=== PATIENT | female | born 1995 | race Caucasian/White ===

== ENCOUNTER 2018-07-26 10:51 | Emergency (ER) | payer BC ==
[2018-07-26 12:12] LABS: Absolute Monocytes 0.6 K/uL (0.1-1.3); Absolute Neutrophil 6.9 K/uL (1.8-8.0); Basophils % 0.3 % (0-1.3); Hematocrit 42.3 % (36.0-45.0); Lymphocytes % 20.3 % (15.3-44.8); MCH 31.3 pg (27.0-35.0); MCV 90.9 fL (80-100); MPV 8.9 fL (7.6-11.3); Monocytes % 5.7 % (3.3-12.3); RBC Red Blood Cell Count 4.66 M/uL (3.86-4.86)
[2018-07-26 12:17] LABS: Urine Blood 2+ (NEG); Urine Glucose NEGATIVE (NEG); Urine Protein NEGATIVE (NEG); Urine Specific Gravity 1.025 (1.005-1.030); Urine pH 5.5 (5.0-7.0)
--- NOTE | 2018-07-26 12:43 | RAD REPORT ---
EXAM DESCRIPTION: US - Transvaginal OB - 07/26/2018 12:21 pm CLINICAL HISTORY: Abd pain;Vaginal bleeding COMPARISON: No comparisons FINDINGS: A single gestational sac is seen within the uterus. The shape of the sac is within normal limits for gestational age. No yolk sac or embryo seen. The placenta is not yet developed due to early gestational age. The maternal adnexa and ovaries are within normal limits. Normal Doppler blood flow was demonstrated to both ovaries. IMPRESSION: Very small gestational sac measuring 4 mm is noted within the endometrium. No embryonic components seen. Based on mean sac diameter, the gestational age is 5 weeks 0 days. Recommend followup ultrasound in 10-12 days.
[2018-07-26 12:51] LABS: BUN Blood Urea Nitrogen 8 mg/dL (7-18); Bicarbonate 30 mmol/L (21-32); Glucose Level 101 mg/dL (74-106); HCG, Quantitative 951 mIU/mL (1-3); Sodium Level 141 mmol/L (136-145)
--- NOTE | 2018-07-26 13:14 | ER ---
Nurse's Notes [facility] Name: Cely Soto Age: 22 yrs Sex: Female : 1995 Arrival Date: 07/26/2018 Time: 10:54 Bed 14 Private MD: None, None Diagnosis: Threatened ; related conditions, unspecified Presentation: 07/26 11:35 Presenting complaint: Patient states: Right pelvic cramping with small amount of aj vaginal bleeding that started today. Transition of care: patient was not received from another setting of care. Onset of symptoms was July 26, 2018. Risk Assessment: Do you want to hurt yourself or someone else? Patient reports no desire to harm self or others. Initial Sepsis Screen: Does the patient meet any 2 criteria? No. Patient's initial sepsis screen is negative. Does the patient have a suspected source of infection? No. Patient's initial sepsis screen is negative. Care prior to arrival: None. 11:35 Method Of Arrival: Ambulatory aj 11:35 Acuity: TOMÁS 3 aj Triage Assessment: 11:36 General: Appears in no apparent distress. comfortable, Behavior is calm, cooperative, aj appropriate for age. Pain: Complains of pain in groin, suprapubic area and right inguinal area. Neuro: Level of Consciousness is awake, alert, obeys commands, Oriented to person, place, time, situation, Appropriate for age. Respiratory: Airway is patent Respiratory effort is even, unlabored, Respiratory pattern is regular, symmetrical. : Reports cramping, in right lower quadrant(s) vaginal bleeding that is. Derm: Skin is intact, is healthy with good turgor, Skin is pink, warm \T\ dry. normal. 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 - Social history:: Smoking status: Patient/guardian denies using tobacco. - Ebola Screening: : Patient negative for fever greater than or equal to 101.5 degrees Fahrenheit, and additional compatible Ebola Virus Disease symptoms Patient denies exposure to infectious person Patient denies travel to an Ebola-affected area in the 21 days before illness onset No symptoms or risks identified at this time. Screenin:50 Abuse screen: Denies threats or abuse. Denies injuries from another. Nutritional sg screening: No deficits noted. Tuberculosis screening: No symptoms or risk factors identified. Never had TB. Fall Risk None identified. Assessment: 11:50 Reassessment: Patient appears in no apparent distress at this time. Patient is alert, sg oriented x 3, equal unlabored respirations, skin warm/dry/pink. General: Behavior is calm, cooperative, appropriate for age. Pain: Complains of pain in suprapubic area Pain currently is 6 out of 10 on a pain scale. Quality of pain is described as crampy, sharp, tender. Neuro: No deficits noted. Cardiovascular: Heart tones S1 S2 present Capillary refill is brisk in bilateral fingers Patient's skin is warm and dry. Chest pain is denied. Respiratory: Airway is patent Respiratory effort is even, unlabored, Respiratory pattern is regular, symmetrical, Breath sounds are clear Denies cough, shortness of breath labored breathing. GI: No signs and/or symptoms were reported involving the gastrointestinal system. : Reports vaginal bleeding that is brown, with clots, light flow, spotty. EENT: No signs and/or symptoms were reported regarding the EENT system. Derm: Skin is pale, Skin temperature is warm. Musculoskeletal: Circulation, motion, and sensation intact. Range of motion: intact in all extremities, Swelling absent. Vital Signs: 11:36 BP 134 / 85; Pulse 75; Resp 17; Temp 98.1; Pulse Ox 100% on R/A; Weight 54.43 kg; aj Height 5 ft. 1 in. (154.94 cm); 12:32 BP 120 / 79; Pulse 68; Resp 17; Pulse Ox 100% on R/A; sg 11:36 Body Mass Index 22.67 (54.43 kg, 154.94 cm) aj ED Course: 10:54 Patient arrived in ED. mr 10:54 None, None is Private Physician. mr 11:33 Radiology exam delayed due to test not completed at this time. hr 11:36 Triage completed. aj 11:36 Arm band placed on left wrist. Patient placed in waiting room, Patient notified of wait aj time. ultrasound ordered. 11:49 Willard Cruz, RN is Primary Nurse. sg 11:50 Gail Guardado FNP-C [facility]. snw 11:50 Fahad Sethi MD is Attending Physician. snw 11:50 Initial lab(s) drawn, by me, sent to lab. Inserted saline lock: 22 gauge in right sg antecubital area, using aseptic technique. Blood collected. 12:00 Patient taken to ultrasound. via wheelchair. hr 12:21 Ultrasound completed. Patient moved back from ultrasound. hr 12:21 US Transvaginal Ob In Process Unspecified. EDMS Administered Medications: No medications were administered Outcome: 13:14 Discharge ordered by . snw 14:02 Patient left the ED. dm5 Signatures: Dispatcher [employer] EDMS Sharmila Brooke, RN RN dm5 Willard Cruz, RN Myrtle Katz RN RN aj Therrien, Shelly, FNP-C FNP-Pierce EduardoFouzia Jing Webster hr
--- NOTE | 2018-07-26 13:14 | EDPHYS ---
Physician Documentation [facility] Name: Cely Soto Age: 22 yrs Sex: Female : 1995 Arrival Date: 07/26/2018 Time: 10:54 Bed 14 Private MD: None, None ED Physician Fahad Sethi HPI: 07/26 14:06 This 22 yrs old Female presents to ER via Ambulatory with complaints of snw Vaginal Bleeding, + Preg <12wks, Abdominal Cramping. 14:06 The patient presents with vaginal bleeding that is spotting, with no clots. Onset: The snw symptoms/episode began/occurred suddenly, this morning. Modifying factors: The symptoms are alleviated by nothing. Associated signs and symptoms: The patient has no apparent associated signs or symptoms. Severity of symptoms: At their worst the symptoms were very mild, mild. The patient is sexually active, reportedly has a single partner. The patient has not experienced similar symptoms in the past. Has been seen recently per Dr. Roberts. . 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 - Social history:: Smoking status: Patient/guardian denies using tobacco. - Ebola Screening: : Patient negative for fever greater than or equal to 101.5 degrees Fahrenheit, and additional compatible Ebola Virus Disease symptoms Patient denies exposure to infectious person Patient denies travel to an Ebola-affected area in the 21 days before illness onset No symptoms or risks identified at this time. ROS: 14:05 Constitutional: Negative for fever, chills, and weight loss, Eyes: Negative for injury, snw pain, redness, and discharge, ENT: Negative for injury, pain, and discharge, Neck: Negative for injury, pain, and swelling, Cardiovascular: Negative for chest pain, palpitations, and edema, Respiratory: Negative for shortness of breath, cough, wheezing, and pleuritic chest pain, Abdomen/GI: Negative for abdominal pain, nausea, vomiting, diarrhea, and constipation, Back: Negative for injury and pain, MS/Extremity: Negative for injury and deformity, Skin: Negative for injury, rash, and discoloration, Neuro: Negative for headache, weakness, numbness, tingling, and seizure. 14:05 : Positive for vaginal bleeding, spotting - 7 weeks . Exam: 13:34 Constitutional: This is a well developed, well nourished patient who is awake, alert, snw and in no acute distress. Head/Face: Normocephalic, atraumatic. Eyes: Pupils equal round and reactive to light, extra-ocular motions intact. Lids and lashes normal. Conjunctiva and sclera are non-icteric and not injected. Cornea within normal limits. Periorbital areas with no swelling, redness, or edema. ENT: Nares patent. No nasal discharge, no septal abnormalities noted. Tympanic membranes are normal and external auditory canals are clear. Oropharynx with no redness, swelling, or masses, exudates, or evidence of obstruction, uvula midline. Mucous membranes moist. Neck: Trachea midline, no thyromegaly or masses palpated, and no cervical lymphadenopathy. Supple, full range of motion without nuchal rigidity, or vertebral point tenderness. No Meningismus. Chest/axilla: Normal chest wall appearance and motion. Nontender with no deformity. No lesions are appreciated. Cardiovascular: Regular rate and rhythm with a normal S1 and S2. No gallops, murmurs, or rubs. Normal PMI, no JVD. No pulse deficits. Respiratory: Lungs have equal breath sounds bilaterally, clear to auscultation and percussion. No rales, rhonchi or wheezes noted. No increased work of breathing, no retractions or nasal flaring. Abdomen/GI: Soft, non-tender, with normal bowel sounds. No distension or tympany. No guarding or rebound. No evidence of tenderness throughout. Back: No spinal tenderness. No costovertebral tenderness. Full range of motion. Skin: Warm, dry with normal turgor. Normal color with no rashes, no lesions, and no evidence of cellulitis. MS/ Extremity: Pulses equal, no cyanosis. Neurovascular intact. Full, normal range of motion. Neuro: Awake and alert, GCS 15, oriented to person, place, time, and situation. Cranial nerves II-XII grossly intact. Motor strength 5/5 in all extremities. Sensory grossly intact. Cerebellar exam normal. Normal gait. Psych: Awake, alert, with orientation to person, place and time. Behavior, mood, and affect are within normal limits. Vital Signs: 11:36 BP 134 / 85; Pulse 75; Resp 17; Temp 98.1; Pulse Ox 100% on R/A; Weight 54.43 kg; aj Height 5 ft. 1 in. (154.94 cm); 12:32 BP 120 / 79; Pulse 68; Resp 17; Pulse Ox 100% on R/A; sg 11:36 Body Mass Index 22.67 (54.43 kg, 154.94 cm) aj MDM: 11:50 Patient medically screened. snw 14:05 Data reviewed: vital signs, nurses notes. Data interpreted: Pulse oximetry: on room air snw is 100 %. Interpretation: normal. Counseling: I had a detailed discussion with the patient and/or guardian regarding: the historical points, exam findings, and any diagnostic results supporting the discharge/admit diagnosis, lab results, radiology results, the need for outpatient follow up, to return to the emergency department if symptoms worsen or persist or if there are any questions or concerns that arise at home. Special discussion: Based on the history and exam findings, there is no indication for further emergent testing or inpatient evaluation. I discussed with the patient/guardian the need to see the OB Gyne specialist for further evaluation of the symptoms. I discussed with the patient/guardian the need to see the primary care provider for further evaluation of the symptoms. 14:07 ED course: Pt states she is following up with Dr. Roberts upon dc from ED. snw 07/26 11:27 Order name: Quantitative Hcg; Complete Time: 12:52 snw 07/26 11:27 Order name: Abo/rh Typing; Complete Time: 12:30 snw 07/26 11:27 Order name: Basic Metabolic Panel; Complete Time: 12:52 snw 07/26 11:27 Order name: CBC with Diff; Complete Time: 12:28 snw 07/26 11:53 Order name: Urine Dipstick--Ancillary (enter results); Complete Time: 12:28 dm5 07/26 12:48 Order name: ABO/RH no charge; Complete Time: 12:48 EDMS 07/26 11:27 Order name: IV Saline Lock; Complete Time: 12:48 snw 07/26 11:27 Order name: Labs collected and sent; Complete Time: 12:48 snw 07/26 11:27 Order name: NPO; Complete Time: 12:48 snw 07/26 11:27 Order name: Urine Dipstick-Ancillary (obtain specimen); Complete Time: 11:51 snw 07/26 11:27 Order name: US Transvaginal Ob; Complete Time: 12:45 snw Administered Medications: No medications were administered Disposition: 14:13 Co-signature as Attending Physician, Fahad Sethi MD I agree with the assessment and kdr plan of care. Disposition: 07/26/18 13:14 Discharged to Home. Impression: Threatened , related conditions, unspecified. - Condition is Stable. - Discharge Instructions: Threatened Miscarriage, Vaginal Bleeding During , First Trimester, First Trimester of , Pelvic Rest. - Prescriptions for Vitamin 27- 0.8 mg Oral Tablet - take 1 tablet by ORAL route once daily; 60 tablet. - Medication Reconciliation Form, Thank You Letter, Antibiotic Education, Prescription Opioid Use form. - Follow up: Private Physician; When: 2 - 3 days; Reason: Recheck today's complaints, Continuance of care, Re-evaluation by your physician. Follow up: Emergency Department; When: As needed; Reason: Worsening of condition. Signatures: Dispatcher [employer] Sharmila Burnett RN RN dm5 Myers, Amanda RN Fahad Howe MD MD [facility] Gail Guardado, MACHINE HOOP MAKER HELPER-C MACHINE HOOP MAKER HELPER-Csnw Corrections: (The following items were deleted from the chart) 14:02 13:14 07/26/2018 13:14 Discharged to Home. Impression: Threatened ; dm5 related conditions, unspecified. Condition is Stable. Forms are Medication Reconciliation Form, Thank You Letter, Antibiotic Education, Prescription Opioid Use. Follow up: Private Physician; When: 2 - 3 days; Reason: Recheck today's complaints, Continuance of care, Re-evaluation by your physician. Follow up: Emergency Department; When: As needed; Reason: Worsening of condition. snw
== END 2018-07-26 14:02 | disposition home or self-care (01) ==
LOC: ER 10:51
DX: O20.0 Threatened abortion (principal); Z3A.01 Less than 8 weeks gestation of pregnancy
CPT/HCPCS: 36415; 76817; 80048; 81003; 84702; 85025; 86900; 86901; 99284

== ENCOUNTER 2018-12-06 11:30 | Emergency (ER) | payer BC ==
--- OUTSIDE RECORDS SUMMARY | 2018-12-06 11:34 | XMS REPORT ---
:1995 [facility] Address [address] [place] [address] Care Team Providers Name Role Phone Unavailable Unavailable Unavailable Payers Payer Name Policy Type Policy Number Effective Date Expiration Date Problems This patient has no known problems. Allergies, Adverse Reactions, Alerts This patient has no known allergies or adverse reactions. Medications This patient has no known medications.
[2018-12-06] MEDS ORDERED: NA CHLORIDE 0.9% 1,000 ML ONE ×2 (14:41→15:54)
[2018-12-06 15:34] LABS: BUN Blood Urea Nitrogen 13 mg/dL (7-18); Bicarbonate 23 mmol/L (21-32); Glucose Level 78 mg/dL (74-106); HCG, Quantitative 2428 mIU/mL (1-3); Potassium 3.5 mmol/L (3.5-5.1); Sodium Level 138 mmol/L (136-145)
[2018-12-06] MEDS ORDERED: PROMETHAZINE 25 MG/ML VIAL ONE (15:54)
--- NOTE | 2018-12-06 16:41 | RAD REPORT ---
EXAM DESCRIPTION: US - Transvaginal OB - 12/06/2018 4:23 pm CLINICAL HISTORY: with abdominal pain and vaginal bleeding FINDINGS: The uterus appears bicornuate. Within the left uterine horn is a 6 millimeter sac. A yolk sac is equivocally seen. A pole is not visualized. The ovaries are normal in size and echotexture. An adnexal mass is not noted. No significant free fluid is seen. 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 Within the left uterine horn is a 6 millimeter sac. pole not seen. This may represent a normal intrauterine . Incomplete has a similar appearance. This should be correlated clini joanna and with serial beta HCG levels. A followup endovaginal sonogram in 1 week is recommended
--- NOTE | 2018-12-06 16:52 | ER ---
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 Pt reports hb she is approx 6 weeks , , HERMINIA 07/29/19. Transition of care: patient was not received from another setting of care. Onset of symptoms was December 06, 2018. Risk Assessment: Do you want to hurt yourself or someone else? Patient reports no desire to harm self or others. Care prior to arrival: None. 11:42 Method Of Arrival: Ambulatory hb 11:42 Acuity: TOMÁS 3 hb 17:23 Initial Sepsis Screen: Does the patient meet any 2 criteria? No. Patient's initial ch sepsis screen is negative. Does the patient have a suspected source of infection? No. Patient's initial sepsis screen is negative. 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 - Social history:: Smoking status: Patient/guardian denies using tobacco. - Ebola Screening: : No symptoms or risks identified at this time. Screenin:24 Abuse screen: Denies threats or abuse. Denies injuries from another. Nutritional ch screening: No deficits noted. Tuberculosis screening: No symptoms or risk factors identified. Fall Risk None identified. Assessment: 13:24 Reassessment: Patient appears in no apparent distress at this time. Patient and/or ch family updated on plan of care and expected duration. Pain level reassessed. Patient is alert, oriented x 3, equal unlabored respirations, skin warm/dry/pink. General: Appears in no apparent distress. comfortable, Behavior is calm, cooperative, appropriate for age. Pain: Denies pain. Neuro: No deficits noted. Respiratory: No deficits noted. Airway is patent Respiratory effort is even, unlabored. GI: Abdomen is flat, non-distended, Bowel sounds present X 4 quads. Reports nausea. : Reports vaginal bleeding that is bright red, light flow, has been going on for 3 days, is getting worse today. Derm: Skin is pink, warm \T\ dry. 14:48 Reassessment: Patient appears in no apparent distress at this time. Patient and/or ch family updated on plan of care and expected duration. Pain level reassessed. Patient is alert, oriented x 3, equal unlabored respirations, skin warm/dry/pink. Patient denies pain at this time. GI: Reports nausea. 16:25 Reassessment: Patient appears in no apparent distress at this time. Patient and/or ch family updated on plan of care and expected duration. Pain level reassessed. Patient is alert, oriented x 3, equal unlabored respirations, skin warm/dry/pink. Patient denies pain at this time. Patient states feeling better. Patient states symptoms have improved. 17:15 Reassessment: Patient appears in no apparent distress at this time. Patient and/or ch family updated on plan of care and expected duration. Pain level reassessed. Patient is alert, oriented x 3, equal unlabored respirations, skin warm/dry/pink. Patient states feeling better. Patient states symptoms have improved. Vital Signs: 11:44 BP 117 / 82; Pulse 101; Resp 16; Temp 97.3; Pulse Ox 98% on R/A; Pain 4/10; hb 13:00 BP 123 / 75; Pulse 62; Resp 14; Temp 99.1; Pulse Ox 100% on R/A; Pain 0/10; ch 14:50 BP 110 / 62; Pulse 74; Resp 18; Pulse Ox 99% on R/A; Pain 0/10; ch 16:25 BP 117 / 80; Pulse 76; Resp 15; Temp 98.5; Pulse Ox 99% on R/A; Pain 0/10; ch 17:15 BP 110 / 68; Pulse 70; Resp 14; Temp 98.3; Pulse Ox 99% on R/A; Pain 0/10; ch ED Course: 11:32 Patient arrived in ED. as 11:32 out of town, doctor is Private Physician. as 11:44 Triage completed. hb 11:44 Arm band placed on. hb 12:58 Gail Guardado FNP-C [facility]. snw 12:58 Fahad Sethi MD is Attending Physician. snw 13:04 Cathy Zarco, JP is Primary Nurse. ch 13:24 Patient has correct armband on for positive identification. Placed in gown. Bed in low ch position. Call light in reach. Side rails up X 1. Pulse ox on. NIBP on. 14:27 Inserted saline lock: 18 gauge in left antecubital area, using aseptic technique. Blood ch collected. 14:42 Urine --Ancillary (enter results) Sent. ds4 14:42 Urine Dipstick--Ancillary (enter results) Sent. ds4 14:43 CBC with Diff Sent. ds4 14:43 Basic Metabolic Panel Sent. ds4 14:43 Abo/rh Typing Sent. ds4 14:43 Quantitative Hcg Sent. ds4 14:50 Warm blanket given. ch 16:23 US Transvaginal Ob In Process Unspecified. EDMS 16:32 Ultrasound completed. aa4 17:15 No apparent distress. Resting quietly. ch 17:15 No provider procedures requiring assistance completed. IV discontinued, intact, ch bleeding controlled, No redness/swelling at site. Pressure dressing applied. Administered Medications: 14:10 Drug: NS 0.9% 1000 ml Route: IV; Rate: 1 bolus; Site: left antecubital; ch 15:20 Follow up: IV Status: Completed infusion; IV Intake: 1000ml ch 15:35 Drug: NS 0.9% 1000 ml Route: IV; Rate: 1 bolus; Site: left antecubital; ch 16:26 Follow up: IV Status: Completed infusion; IV Intake: 1000ml ch 16:20 Drug: Phenergan 6.25 mg Route: IVP; Site: left antecubital; ch 16:40 Follow up: Response: No adverse reaction; Marked relief of symptoms ch Intake: 15:20 IV: 1000ml; Total: 1000ml. ch 16:26 IV: 1000ml; Total: 2000ml. ch Outcome: 16:52 Discharge ordered by . snw 17:17 Patient left the ED. ch 17:22 Discharged to home ambulatory. ch 17:22 Condition: stable 17:22 Discharge instructions given to patient, Instructed on discharge instructions, follow up and referral plans. Demonstrated understanding of instructions, follow-up care, medications, Prescriptions given X 3. Signatures: Dispatcher [employer] Cathy Kaur, RN RN Gail Cramer, FRESH WORK INSPECTOR-C FRESH WORK INSPECTOR-Piercew Tootie Sinha Amanda aa4 Venu Styles 4 Wen Ewing RN RN hb
--- NOTE | 2018-12-06 16:52 | EDPHYS ---
Physician Documentation [facility] Name: Cely Soto Age: 22 yrs Sex: Female : 1995 Arrival Date: 12/06/2018 Time: 11:32 Bed 25 Private MD: out of town, doctor ED Physician Fahad Sethi HPI: 12/06 20:27 This 22 yrs old Female presents to ER via Ambulatory with complaints of snw Vomiting, Vaginal Bleeding, + Preg <12wks. 20:27 The patient presents to the emergency department with nausea, vomiting. Onset: The snw symptoms/episode began/occurred suddenly, and became worse. Possible causes: . The symptoms are aggravated by nothing. Associated signs and symptoms: Pertinent positives: minimal vaginal spotting in ED. Severity of symptoms: At their worst the symptoms were moderate. The patient has not experienced similar symptoms in the past. 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 pt called her PCP and was directed to ED 2nd to concern for dehydration. Pt has hx of one miscarriage in the past. 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 - Social history:: Smoking status: Patient/guardian denies using tobacco. - Ebola Screening: : No symptoms or risks identified at this time. ROS: 20:25 Constitutional: Negative for fever, chills, and weight loss, Eyes: Negative for injury, snw pain, redness, and discharge, ENT: Negative for injury, pain, and discharge, Neck: Negative for injury, pain, and swelling, Cardiovascular: Negative for chest pain, palpitations, and edema, Respiratory: Negative for shortness of breath, cough, wheezing, and pleuritic chest pain, Abdomen/GI: Negative for abdominal pain, diarrhea, and constipation, + nausea, severe vomiting, Back: Negative for injury and pain, : Negative for injury, bleeding, discharge, and swelling, MS/Extremity: Negative for injury and deformity, Skin: Negative for injury, rash, and discoloration, Neuro: Negative for headache, weakness, numbness, tingling, and seizure. Exam: 20:25 Constitutional: This is a well developed, well nourished patient who is awake, alert, snw and in no acute distress. Head/Face: Normocephalic, atraumatic. Eyes: Pupils equal round and reactive to light, extra-ocular motions intact. Lids and lashes normal. Conjunctiva and sclera are non-icteric and not injected. Cornea within normal limits. Periorbital areas with no swelling, redness, or edema. ENT: Nares patent. No nasal discharge, no septal abnormalities noted. Tympanic membranes are normal and external auditory canals are clear. Oropharynx with no redness, swelling, or masses, exudates, or evidence of obstruction, uvula midline. Mucous membranes moist. Neck: Trachea midline, no thyromegaly or masses palpated, and no cervical lymphadenopathy. Supple, full range of motion without nuchal rigidity, or vertebral point tenderness. No Meningismus. Chest/axilla: Normal chest wall appearance and motion. Nontender with no deformity. No lesions are appreciated. Cardiovascular: Regular rate and rhythm with a normal S1 and S2. No gallops, murmurs, or rubs. Normal PMI, no JVD. No pulse deficits. Respiratory: Lungs have equal breath sounds bilaterally, clear to auscultation and percussion. No rales, rhonchi or wheezes noted. No increased work of breathing, no retractions or nasal flaring. Back: No spinal tenderness. No costovertebral tenderness. Full range of motion. Skin: Warm, dry with normal turgor. Normal color with no rashes, no lesions, and no evidence of cellulitis. MS/ Extremity: Pulses equal, no cyanosis. Neurovascular intact. Full, normal range of motion. Neuro: Awake and alert, GCS 15, oriented to person, place, time, and situation. Cranial nerves II-XII grossly intact. Motor strength 5/5 in all extremities. Sensory grossly intact. Cerebellar exam normal. Normal gait. Psych: Awake, alert, with orientation to person, place and time. Behavior, mood, and affect are within normal limits. 20:25 Skin: Warm, dry with normal turgor. Normal color with no rashes, no lesions, and no evidence of cellulitis. intermittently pale 20:25 Abdomen/GI: Inspection: abdomen appears normal, Bowel sounds: normal, Palpation: abdomen is soft and non-tender, in all quadrants. Vital Signs: 11:44 BP 117 / 82; Pulse 101; Resp 16; Temp 97.3; Pulse Ox 98% on R/A; Pain 4/10; hb 13:00 BP 123 / 75; Pulse 62; Resp 14; Temp 99.1; Pulse Ox 100% on R/A; Pain 0/10; ch 14:50 BP 110 / 62; Pulse 74; Resp 18; Pulse Ox 99% on R/A; Pain 0/10; ch 16:25 BP 117 / 80; Pulse 76; Resp 15; Temp 98.5; Pulse Ox 99% on R/A; Pain 0/10; ch 17:15 BP 110 / 68; Pulse 70; Resp 14; Temp 98.3; Pulse Ox 99% on R/A; Pain 0/10; ch MDM: 14:56 Patient medically screened. snw 16:57 Data reviewed: vital signs, nurses notes. Data interpreted: Pulse oximetry: on room air snw is 99 %. Interpretation: normal. Counseling: I had a detailed discussion with the patient and/or guardian regarding: the historical points, exam findings, and any diagnostic results supporting the discharge/admit diagnosis, the presence of at least one elevated blood pressure reading (>120/80) during this emergency department visit, lab results, radiology results, the need for outpatient follow up, to return to the emergency department if symptoms worsen or persist or if there are any questions or concerns that arise at home. Special discussion: Based on the patient's Hx, exam, and Dx evaluation, there is no indication for emergent surgery or inpatient Tx. It is understood by the patient/guardian that if the Sx's persist or worsen they need to return immediately for re-evaluation. I have referred the patient to see his PCP for further evaluation of high blood pressure. I discussed with the patient the need to follow-up with the PCP/specialist for the noted incidental finding on X-ray/CT scanning. Based on the history and exam findings, there is no indication for further emergent testing or inpatient evaluation. I discussed with the patient/guardian the need to see the OB Gyne specialist for further evaluation of the symptoms. bicornate uterus. 12/06 13:18 Order name: Urine Dipstick--Ancillary (enter results) ds4 12/06 13:18 Order name: Urine --Ancillary (enter results) ds4 12/06 13:53 Order name: Quantitative Hcg; Complete Time: 15:37 snw 12/06 13:53 Order name: Abo/rh Typing; Complete Time: 15:37 snw 12/06 13:53 Order name: Basic Metabolic Panel; Complete Time: 15:37 w 12/06 13:53 Order name: CBC with Diff w 12/06 13:53 Order name: IV Saline Lock; Complete Time: 14:43 w 12/06 13:53 Order name: Labs collected and sent; Complete Time: 14:43 snw 12/06 13:53 Order name: NPO; Complete Time: 14:42 snw 12/06 13:53 Order name: Urine Dipstick-Ancillary (obtain specimen); Complete Time: 14:42 snw 12/06 15:38 Order name: US Transvaginal Ob; Complete Time: 16:45 snw Administered Medications: 14:10 Drug: NS 0.9% 1000 ml Route: IV; Rate: 1 bolus; Site: left antecubital; ch 15:20 Follow up: IV Status: Completed infusion; IV Intake: 1000ml ch 15:35 Drug: NS 0.9% 1000 ml Route: IV; Rate: 1 bolus; Site: left antecubital; ch 16:26 Follow up: IV Status: Completed infusion; IV Intake: 1000ml ch 16:20 Drug: Phenergan 6.25 mg Route: IVP; Site: left antecubital; ch 16:40 Follow up: Response: No adverse reaction; Marked relief of symptoms ch Disposition: 12/06/18 16:52 Discharged to Home. Impression: Bicornate uterus, 1st trimester intrauterine . - Condition is Stable. - Discharge Instructions: Dehydration, Adult, Nausea and Vomiting, Adult, Threatened Miscarriage, Rehydration, Adult. - Prescriptions for Diclegis 10- 10 mg Oral tablet,delayed release (DR/EC) - take 1 tablet by ORAL route 1-2 times daily and 2 tablets at bedtime; 40 tablet. L- Methylfolate - take 7.5 milligram by ORAL route once daily; 60 tablet. Vitamin 27- 0.8 mg Oral Tablet - take 1 tablet by ORAL route once daily; 60 tablet. - Medication Reconciliation Form, Thank You Letter, Antibiotic Education, Prescription Opioid Use form. - Follow up: Private Physician; When: 1 week; Reason: Recheck today's complaints, Continuance of care, Re-evaluation by your physician. Follow up: Emergency Department; When: As needed; Reason: Worsening of condition. Addendum: 12/13/2018 09:27 Co-signature as Attending Physician, Fahad Sethi MD I agree with the assessment and k dr plan of care. Signatures: Dispatcher [employer] EDCathy Salgado, RN RN Fahad Sethi MD MD [facility] Gail Guardado, MACHINE PLATE STACKER-C MACHINE PLATE STACKER-Csnw Wen Ewing, RN RN Corrections: (The following items were deleted from the chart) 12/06 17:17 16:52 12/06/2018 16:52 Discharged to Home. Impression: Bicornate uterus; 1st trimester ch intrauterine . Condition is Stable. Forms are Medication Reconciliation Form, Thank You Letter, Antibiotic Education, Prescription Opioid Use. Follow up: Private Physician; When: 1 week; Reason: Recheck today's complaints, Continuance of care, Re-evaluation by your physician. Follow up: Emergency Department; When: As needed; Reason: Worsening of condition. snw
[2018-12-06 18:56] LABS: Urine Blood TRACE (NEG); Urine Glucose NEGATIVE (NEG); Urine Protein 1+ (NEG); Urine Specific Gravity >1.030 (1.005-1.030); Urine pH 5.5 (5.0-7.0)
== END 2018-12-06 17:17 | disposition home or self-care (01) ==
LOC: ER 11:30
DX: O34.01 Maternal care for unspecified congenital malformation of uterus, first trimester (principal); Z3A.00 Weeks of gestation of pregnancy not specified
CPT/HCPCS: 36415; 76817; 80048; 81003; 81025; 84702; 85025; 86900; 86901; J2550; J7030

== ENCOUNTER 2019-03-13 07:23 | Emergency (ER) | payer BC ==
--- OUTSIDE RECORDS SUMMARY | 2019-03-13 07:25 | XMS REPORT ---
:1995 Author Organization [facility] Address [address] [place] [address] Care Team Providers Name Role Phone Unavailable Unavailable Unavailable Payers Payer Name Policy Type Policy Number Effective Date Expiration Date Problems This patient has no known problems. Allergies, Adverse Reactions, Alerts This patient has no known allergies or adverse reactions. Medications This patient has no known medications.
[2019-03-13] MEDS ORDERED: ONDANSETRON 4 MG/2 ML VIAL ONE (08:01)
[2019-03-13] MEDS ORDERED: NA CHLORIDE 0.9% 1,000 ML ONE (08:02)
[2019-03-13 08:09] LABS: Absolute Lymphocytes (CBC) 2.6 K/uL (0.7-4.9); Absolute Monocytes 0.6 K/uL (0.1-1.3); Absolute Neutrophil 9.5 K/uL (1.8-8.0); Basophils % 0.4 % (0-1.3); Eosinophils % 3.8 % (0-4.4); Hematocrit 39.6 % (36.0-45.0); Lymphocytes % 19.6 % (15.3-44.8); MPV 8.5 fL (7.6-11.3); Monocytes % 4.8 % (3.3-12.3); RBC Red Blood Cell Count 4.47 M/uL (3.86-4.86)
[2019-03-13] MEDS ORDERED: PROMETHAZINE 25 MG/ML VIAL ONE (08:14)
[2019-03-13] MEDS ORDERED: KETOROLAC 30 MG/ML INJ ONE (08:14)
[2019-03-13 08:19] LABS: Albumin 4.3 g/dL (3.4-5.0); Bilirubin Direct 0.2 mg/dL (0-0.2); Bilirubin Total 0.5 mg/dL (0.2-1.0); Potassium 3.6 mmol/L (3.5-5.1); Protein, Total 7.5 g/dL (6.4-8.2)
[2019-03-13 08:22] LABS: Urine Blood TRACE (NEG); Urine Glucose NEGATIVE (NEG); Urine Protein 1+ (NEG); Urine Specific Gravity >1.030 (1.005-1.030)
[2019-03-13 08:40] LABS: Barbiturates POSITIVE (NEGATIVE); Benzodiazepines NEGATIVE (NEGATIVE); Cocaine NEGATIVE (NEGATIVE); METHAMPHETAM NEGATIVE (NEGATIVE); Methadone NEGATIVE (NEGATIVE); Opiates NEGATIVE (NEGATIVE); Phencyclidine NEGATIVE (NEGATIVE); THC Cannibis POSITIVE (NEGATIVE)
[2019-03-13] MEDS ORDERED: MAGNE/ALUM HYDROXD 30 ML UCUP ONE (09:00)
[2019-03-13] MEDS ORDERED: FAMOTIDINE 20 MG/2 ML VIAL IV ONE (09:00)
[2019-03-13] MEDS ORDERED: LIDOCAINE VISCOUS 2% SOLN 15 ML UDC ONE (09:00)
--- NOTE | 2019-03-13 09:03 | EDPHYS ---
Physician Documentation [facility] Name: Cely Soto Age: 23 yrs Sex: Female : 1995 Arrival Date: 03/13/2019 Time: 07:25 Bed 20 Private MD: None, None ED Physician Mejia Rios HPI: 03/13 08:18 This 23 yrs old Female presents to ER via Ambulatory with complaints of pm1 Abdominal Pain. 08:18 The patient presents with abdominal pain that is diffuse. Onset: The symptoms/episode pm1 began/occurred Ongoing for multiple months but worse for the past few days. The symptoms do not radiate. Associated signs and symptoms: Pertinent positives: nausea and vomiting, Pertinent negatives: chest pain, constipation, diarrhea, dysuria, fever, shortness of breath. The symptoms are described as achy. Modifying factors: The symptoms are alleviated by nothing, the symptoms are aggravated by nothing. Severity of pain: in the emergency department the pain is actually worse. The patient has been recently seen by a physician: with similar presenting complaints, lab tests were done, CT scan was done, and was referred to a specialist, Seen at [place] [facility] and discharged home to follow up with GI. Patient with long standing history of cannabis abuse. Smokes cannabis daily. Patient with abdominal pain for the past several months. Abdominal pain is usually worse in the morning and eases throughout the day. For the past few days the pain has been worse and lasting longer. 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 - Social history:: Patient uses street drugs, marijuana, "daily to help with the pain, like 2 or 3 times a day", Smoking status: Patient/guardian denies using tobacco. - Ebola Screening: : Patient denies travel to an Ebola-affected area in the 21 days before illness onset. ROS: 08:18 Constitutional: Negative for fever, chills, and weight loss, Eyes: Negative for injury, pm1 pain, redness, and discharge, ENT: Negative for injury, pain, and discharge, Neck: Negative for injury, pain, and swelling, Cardiovascular: Negative for chest pain, palpitations, and edema, Respiratory: Negative for shortness of breath, cough, wheezing, and pleuritic chest pain. 08:18 Back: Negative for injury and pain, : Negative for injury, bleeding, discharge, and swelling, MS/Extremity: Negative for injury and deformity, Skin: Negative for injury, rash, and discoloration, Neuro: Negative for headache, weakness, numbness, tingling, and seizure. 08:18 Abdomen/GI: Positive for abdominal pain, nausea and vomiting, Negative for diarrhea, constipation, hematemesis, black/tarry stool. Exam: 08:18 Constitutional: This is a well developed, well nourished patient who is awake, alert, pm1 and in no acute distress. Head/Face: Normocephalic, atraumatic. Eyes: Pupils equal round and reactive to light, extra-ocular motions intact. Lids and lashes normal. Conjunctiva and sclera are non-icteric and not injected. Cornea within normal limits. Periorbital areas with no swelling, redness, or edema. ENT: Nares patent. No nasal discharge, no septal abnormalities noted. Tympanic membranes are normal and external auditory canals are clear. Oropharynx with no redness, swelling, or masses, exudates, or evidence of obstruction, uvula midline. Mucous membranes moist. Neck: Trachea midline, no thyromegaly or masses palpated, and no cervical lymphadenopathy. Supple, full range of motion without nuchal rigidity, or vertebral point tenderness. No Meningismus. Chest/axilla: Normal chest wall appearance and motion. Nontender with no deformity. No lesions are appreciated. Cardiovascular: Regular rate and rhythm with a normal S1 and S2. No gallops, murmurs, or rubs. Normal PMI, no JVD. No pulse deficits. Respiratory: Lungs have equal breath sounds bilaterally, clear to auscultation and percussion. No rales, rhonchi or wheezes noted. No increased work of breathing, no retractions or nasal flaring. 08:18 Back: No spinal tenderness. No costovertebral tenderness. Full range of motion. Skin: Warm, dry with normal turgor. Normal color with no rashes, no lesions, and no evidence of cellulitis. MS/ Extremity: Pulses equal, no cyanosis. Neurovascular intact. Full, normal range of motion. 08:18 Abdomen/GI: Inspection: abdomen appears normal, Bowel sounds: normal, Palpation: soft, mild abdominal tenderness, in the epigastric area, mass, is not appreciated, rebound tenderness, is not appreciated. 08:18 Neuro: Orientation: is normal, Motor: is normal, moves all fours. Vital Signs: 07:32 BP 115 / 88; Pulse 60; Resp 20; Temp 99.2(O); Pulse Ox 98% on R/A; Pain 10/10; tw2 08:43 BP 125 / 65; Pulse 67; Resp 17; Temp 97.8(O); Pulse Ox 99% on R/A; tw2 MDM: 07:28 Patient medically screened. pm1 08:41 Data reviewed: vital signs. Data interpreted: Pulse oximetry: on room air is 98 %. pm1 Interpretation: normal. 08:41 Refusal of service: The patient/guardian displays adequate decision making capability pm1 and despite a detailed discussion of alternatives, benefits, risks, and consequences refuses: CT Scan. 08:58 ED course: Patient denies barbiturate abuse. Patient was seen at [facility] on Monday pm1 for the same complaint and was given GI cocktail at that time. Positive barbiturates on UDS likely due to from GI cocktail. 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 08:58 ED course: Patient's significant other is upset to hear that the patient's multiple pm1 years of daily marijuana use may be a possible cause for cyclical vomiting. 03/13 07:47 Order name: Lipase; Complete Time: 08:44 pm1 03/13 07:47 Order name: Basic Metabolic Panel; Complete Time: 08:44 pm1 03/13 07:47 Order name: CBC with Diff; Complete Time: 08:18 pm1 03/13 07:47 Order name: Hepatic Function; Complete Time: 08:44 pm1 03/13 07:47 Order name: UDS; Complete Time: 08:50 pm1 03/13 08:03 Order name: Urine Dipstick--Ancillary (enter results); Complete Time: 08:44 bd 03/13 08:03 Order name: Urine --Ancillary (enter results); Complete Time: 08:44 bd 03/13 07:36 Order name: Urine Dipstick-Ancillary (obtain specimen); Complete Time: 07:46 pm1 03/13 07:36 Order name: Urine Test (obtain specimen); Complete Time: 07:46 pm1 03/13 07:47 Order name: IV Saline Lock; Complete Time: 08:08 pm1 03/13 07:47 Order name: Labs collected and sent; Complete Time: 08:08 pm1 Administered Medications: 07:55 Drug: Zofran 4 mg Route: IVP; Site: right antecubital; tw2 08:05 Follow up: Response: No adverse reaction; No change in condition; Nausea unchanged tw2 07:55 Drug: NS 0.9% 1000 ml Route: IV; Rate: 1000 ml; Site: right antecubital; tw2 09:00 Follow up: Response: No adverse reaction; IV Intake: 1000ml tw2 08:05 Drug: Phenergan 12.5 mg Route: IVP; Site: right antecubital; tw2 08:44 Follow up: Response: No adverse reaction; Nausea is decreased tw2 08:07 Drug: TORadol 30 mg Route: IVP; Site: right antecubital; tw2 08:44 Follow up: Response: No adverse reaction; Pain is decreased tw2 08:53 Drug: Pepcid 20 mg Route: IVP; Site: right antecubital; tw2 09:10 Follow up: Response: No adverse reaction tw2 08:54 Not Given (Patient Refused; "i am not going to be able to take that again", provider tw2 notified.): GI Cocktail without - (Maalox Suspension 30 ml, Lidocaine Liquid 2 % 15 ml) PO once Disposition: 12:12 Co-signature as Attending Physician, Mejia Rios MD I agree with the assessment and perlita plan of care. Disposition: 03/13/19 09:02 Discharged to Home. Impression: Unspecified abdominal pain, Cannabis abuse, Vomiting. - Condition is Stable. - Discharge Instructions: Abdominal Pain, Adult, Cannabis Use Disorder, Nausea and Vomiting, Adult. - Prescriptions for Bentyl 20 mg Oral Tablet - take 1 tablet by ORAL route every 6 hours As needed; 20 tablet. Pepcid 20 mg Oral Tablet - take 1 tablet by ORAL route every 12 hours for 10 days; 20 tablet. Phenergan 25 mg Rectal Suppository - insert 1 suppository by RECTAL route every 6 hours As needed; 12 suppository. promethazine 25 mg Oral Tablet - take 1 tablet by ORAL route every 6 hours As needed; 20 tablet. - Medication Reconciliation Form, Thank You Letter, Antibiotic Education, Prescription Opioid Use, Work release form, Family Work Release form. - Follow up: Emergency Department; When: As needed; Reason: Worsening of condition. Follow up: Private Physician; When: 2 - 3 days; Reason: Recheck today's complaints, Continuance of care, Re-evaluation by your physician. - Problem is new. - Symptoms have improved. Signatures: Dispatcher [employer] EDNM Mejia Rios MD MD cha Marinas, Patrick FIELD SERVICE TECHNICIAN POULTRY FIELD SERVICE TECHNICIAN POULTRY pm1 Kathie Naik RN RN tw2 Corrections: (The following items were deleted from the chart) 08:45 08:04 Abdomen Pelvis W Con+CT.RAD.BRZ ordered. [facility] EDNM 09:23 09:02 03/13/2019 09:02 Discharged to Home. Impression: Unspecified abdominal tw2 painCannabis abuse; Vomiting. Condition is Stable. Forms are Work release form, Family Work Release, Medication Reconciliation Form, Thank You Letter, Antibiotic Education, Prescription Opioid Use. Follow up: Emergency Department; When: As needed; Reason: Worsening of condition. Follow up: Private Physician; When: 2 - 3 days; Reason: Recheck today's complaints, Continuance of care, Re-evaluation by your physician. Problem is new. Symptoms have improved. pm1
--- NOTE | 2019-03-13 09:03 | ER ---
Nurse's Notes [facility] Name: Cely Soto Age: 23 yrs Sex: Female : 1995 Arrival Date: 03/13/2019 Time: 07:25 Bed 20 Private MD: None, None Diagnosis: Cannabis abuse;Vomiting;Unspecified abdominal pain Presentation: 03/13 07:31 Presenting complaint: Patient states: i have been having abdominal pain for a while, i tw2 went to [facility] and they said the cat scan was negative, but i cant take the pain, i have been vomiting since 5 am. Transition of care: patient was not received from another setting of care. Onset of symptoms was March 13, 2019. Risk Assessment: Do you want to hurt yourself or someone else? Patient reports no desire to harm self or others. Initial Sepsis Screen: Does the patient meet any 2 criteria? No. Patient's initial sepsis screen is negative. Does the patient have a suspected source of infection? No. Patient's initial sepsis screen is negative. Care prior to arrival: None. 07:31 Method Of Arrival: Ambulatory tw2 07:31 Acuity: TOMÁS 3 tw2 Triage Assessment: 07:32 General: Appears uncomfortable, slender, Behavior is cooperative, anxious, crying, tw2 fussy. Pain: Complains of pain in abdomen. GI: Reports lower abdominal pain, upper abdominal pain, nausea, vomiting. 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 - Social history:: Patient uses street drugs, marijuana, "daily to help with the pain, like 2 or 3 times a day", Smoking status: Patient/guardian denies using tobacco. - Ebola Screening: : Patient denies travel to an Ebola-affected area in the 21 days before illness onset. Screenin:34 Abuse screen: Denies threats or abuse. Nutritional screening: No deficits noted. tw2 Tuberculosis screening: No symptoms or risk factors identified. Fall Risk None identified. Assessment: 07:37 General: Appears uncomfortable, slender, Behavior is cooperative, anxious, crying. tw2 Pain: Complains of pain in epigastric area, right upper quadrant and left upper quadrant. Neuro: Level of Consciousness is awake, alert, obeys commands, Oriented to person, place, time, situation. Cardiovascular: Heart tones S1 S2 Patient's skin is warm and dry. Respiratory: Airway is patent Respiratory effort is even, unlabored, Respiratory pattern is regular, symmetrical, Breath sounds are clear bilaterally. GI: Bowel sounds present X 4 quads. Abd is soft and non tender Reports upper abdominal pain, nausea, vomiting. : No signs and/or symptoms were reported regarding the genitourinary system. EENT: No signs and/or symptoms were reported regarding the EENT system. Derm: No signs and/or symptoms reported regarding the dermatologic system. Musculoskeletal: No signs and/or symptoms reported regarding the musculoskeletal system. Circulation, motion, and sensation intact. Range of motion: intact in all extremities. 08:42 Reassessment: Patient appears in no apparent distress at this time. Patient and/or tw2 family updated on plan of care and expected duration. Pain level reassessed. Patient is alert, oriented x 3, equal unlabored respirations, skin warm/dry/pink. pt is calm, quiet, and resting at this time. Patient states feeling better. 08:45 Reassessment: pt and pts significant other refused CT at this time, and state they tw2 "called a GI for scope", provider notified. 09:21 Reassessment: Patient appears in no apparent distress at this time. Patient and/or tw2 family updated on plan of care and expected duration. Pain level reassessed. pt states "i just want to go home and take a hot bath", pts family member/significant other states "she gets better every time she smokes marijuana so whatever those reports say about overuse cant be true". Vital Signs: 07:32 BP 115 / 88; Pulse 60; Resp 20; Temp 99.2(O); Pulse Ox 98% on R/A; Pain 10/10; tw2 08:43 BP 125 / 65; Pulse 67; Resp 17; Temp 97.8(O); Pulse Ox 99% on R/A; tw2 ED Course: 07:25 Patient arrived in ED. mr 07:25 None, None is Private Physician. mr 07:28 Marinas, Saurabh, [employer] REPA[employer] is PHCP. pm1 07:28 Mejia Rios MD is Attending Physician. pm1 07:28 Bed in low position. Call light in reach. Adult w/ patient. Pulse ox on. NIBP on. tw2 07:31 Kathie Naik, JP is Primary Nurse. tw2 07:32 Triage completed. tw2 07:34 Arm band placed on. tw2 07:45 Urine collected: clean catch specimen, edil colored. dh3 09:22 No provider procedures requiring assistance completed. IV discontinued, intact, tw2 bleeding controlled, No redness/swelling at site. Pressure dressing applied. Administered Medications: 07:55 Drug: Zofran 4 mg Route: IVP; Site: right antecubital; tw2 08:05 Follow up: Response: No adverse reaction; No change in condition; Nausea unchanged tw2 07:55 Drug: NS 0.9% 1000 ml Route: IV; Rate: 1000 ml; Site: right antecubital; tw2 09:00 Follow up: Response: No adverse reaction; IV Intake: 1000ml tw2 08:05 Drug: Phenergan 12.5 mg Route: IVP; Site: right antecubital; tw2 08:44 Follow up: Response: No adverse reaction; Nausea is decreased tw2 08:07 Drug: TORadol 30 mg Route: IVP; Site: right antecubital; tw2 08:44 Follow up: Response: No adverse reaction; Pain is decreased tw2 08:53 Drug: Pepcid 20 mg Route: IVP; Site: right antecubital; tw2 09:10 Follow up: Response: No adverse reaction tw2 08:54 Not Given (Patient Refused; "i am not going to be able to take that again", provider tw2 notified.): GI Cocktail without - (Maalox Suspension 30 ml, Lidocaine Liquid 2 % 15 ml) PO once Intake: 09:00 IV: 1000ml; Total: 1000ml. tw2 Outcome: 09:02 Discharge ordered by . pm1 09:22 Discharged to home ambulatory, with significant other. tw2 09:22 Condition: stable 09:22 Discharge instructions given to patient, significant other, Instructed on discharge instructions, follow up and referral plans. no drinking with medication, no driving heavy equipment, medication usage, Demonstrated understanding of instructions, follow-up care, medications, Prescriptions given X 4. 09:23 Patient left the ED. tw2 Signatures: Jimena Eduardo mr DaisySaurabh, RAKESH [employer] REPA[employer] pm1 Kathie Naik RN RN tw2 Nabila Vieira 3 Corrections: (The following items were deleted from the chart) 09:26 09:21 Reassessment: pt states "i just want to go home and take a hot bath" tw2 tw2
== END 2019-03-13 09:23 | disposition home or self-care (01) ==
LOC: ER 07:23
DX: R10.9 Unspecified abdominal pain (principal); F12.10 Cannabis abuse, uncomplicated
CPT/HCPCS: 36415; 80048; 80076; 80307; 81003; 81025; 83690; 85025; 96374; 96375; 99284; J2405; J2550; J7030

== ENCOUNTER 2022-02-22 14:56 | Emergency (ER) | payer BC, OTHER ==
--- OUTSIDE RECORDS SUMMARY | 2022-02-22 14:59 | XMS REPORT | Continuity of Care Document ---
:1995 Author Organization [facility] t Address [address] [place] [address] Care Team Providers Name Role Phone Ilia DONALD Primary Care Physician Unavailable ANI FOX Attending Clinician Unavailable KRISHNA MERCHANT Attending Clinician Unavailable Ani Fox MD Attending Clinician Swati Calhoun MD Attending Clinician Swati CALHOUN Attending Clinician Unavailable Doctor Unassigned, Name Attending Clinician Unavailable Singer FOFANA Attending Clinician Attending Clinician Unavailable ANI FOX Admitting Clinician Unavailable Ani Fox MD Admitting Clinician Payers Payer Name Policy Type Policy Number Effective Date Expiration Date S sandy [facility] [id number] 2018 00:00:00 [place] [facility] [id number] 2021 HEALTH 00:00:00 Problems Condition Condition Condition Status Onset Resolution Last Treating Co mments Source Name Details Category Date Date Treatment Clinician Date Encounter Encounter Disease Active 2020-11 Uni vers for tubal for tubal 2-10 ity of ligation ligation 00:00: [place] counseling counseling 00 [place] [facility] High-risk High-risk Disease Active 2020-11 Uni vers 2-10 ity of in third in third 00:00: [place] trimester trimester 00 [facility] Previous Previous Disease Active 2020-11 Unive rs 2-10 ity of section section 00:00: [place] 00 Medical Branch History of History of Disease Active 2020-11 U roxana depression depression 2-10 it y of 00:00: [place] [facility] History of History of Disease Active 2020-11 U rox[place] anxiety anxiety 2-10 ity of 00:00: [place] 00 Medical Branch Obesity Obesity Disease Active 2020-11 Univers during during 2-09 [place] [facility] Obesity Obesity Disease Active 2020-11 Univers (BMI (BMI 2-09 ity of 30-39.9) 30-39.9) 00:00: [place] 00 [facility] Generalize Generalize Disease Active 2015- U nivers d d 4-15 ity of abdominal abdominal 00:00: Mikaela orantes pain pain [facility] Contracept Contracept Disease Active 2015-0 U roxana brennon brennon 3-03 [place] [facility] Vaginal Vaginal Disease Active 2015-0 Univers bleeding bleeding 3-03 ity of 00:00: [place] 00 [facility] Allergies, Adverse Reactions, Alerts Allergy Allergy Status Severity Reaction(s) Onset Inactive Treating Comm ents Source Name Type Date Date Clinician NO KNOWN Drug Active Univers ALLERGIE Class ity of S [facility] Social History Social Habit Start Date Stop Date Quantity Comments Source ASSERTION 2021-04-23 [facility] 00:00:00 [facility] Exposure to Not sure [facility] SARS-CoV-2 (event) Medica l Branch Alcohol intake 2021-10-28 2021-10-28 0 /d [facility] 00:00:00 00:00:00 [facility] Tobacco use and 2014-04-11 2014-04-11 Never used [facility] exposure 00:00:00 00:00:00 [facility] Sex Assigned At [birth year] [facility] 00:00:00 00:00:00 [facility] Smoking Status Start Date Stop Date Source Former smoker 2014-04-11 00:00:00 2014-04-11 00:00:00 [facility] Medications Ordered Filled Start Stop Current Ordering Indication Dosage Frequency Signature Comments Components Source Medication Medication Date Date Medication? Clinician (SIG) Name Name 2020-11 Yes Take by Unive rs vit 2-09 mouth. ity of calc,iron,f 14:57: [place] [id number] Medical ( Branch VITAMIN ORAL) 2020-11 Yes Take by Unive rs vit 2-09 mouth. ity of calc,iron,f 14:57: [place] [id number] Medical ( Branch VITAMIN ORAL) Nitrofurant 2020-11 Yes [id number] 100mg Take 1 Univers oin&Nit. 1-26 capsule by ity o f [place] 100 mg 00 (two) Medical capsule times Branch daily. Nitrofurant 2020-11- No [id number] 100mg Take 1 Univers oin&Nit. 1-26 12-10 capsule by ity of Macrocryst 00:00: 00:00 mouth 2 [place] 100 mg 00 :00 (two) Medical capsule times Branch daily. haloperidol 2020- No 2.5mg 2.5 mg, U nivers lactate 01-29 Intravenou ity o f (HALDOL) 16:30: 15:23 [place]CE[place] :[place] dose, Fri Medic al 2.5 mg 01/29/21 at Branch 1030, STAT diphenhydrA 2020- No 25mg 25 mg, Uni vers MINE 01-29 Slow IV ity of (BENADRYL) 15:15: 15:15 Push, [place] injection 00 :00 ONCE, 1 Medical 25 mg dose, Fri Branch 01/29/21 at 0915, STAT haloperidol 2020- No 2.5mg 2.5 mg, U nivers lactate 01-29 Intravenou ity o f (HALDOL) 15:15: 15:15 s, [place]CE[place] 1 [place] :[place] dose, Fri Medic al 2.5 mg 01/29/21 at Branch 0915, STAT ondansetron Yes [id number] 4mg Take 1 Univers 4 mg 3-12 tablet by ity of disintegrat 00:00: mouth [place] ing tablet 00 every 8 Medica l (eight) Branch hours as needed for Nausea and Vomiting (N/V). ondansetron Yes [id number] 4mg Take 1 Univers 4 mg 3-12 tablet by ity of disintegrat 00:00: mouth [place] ing tablet 00 every 8 Medica l (eight) Branch hours as needed for Nausea and Vomiting (N/V). ondansetron Yes [id number] 4mg Take 1 Univers 4 mg 3-12 tablet by ity of disintegrat 00:00: mouth [place] ing tablet 00 every 8 Medica l (eight) Branch hours as needed for Nausea and Vomiting (N/V). ondansetron 2020- No [id number] 4mg Take 1 Univers 4 mg 3-12 12-10 tablet by ity of disintegrat 00:00: 00:[place] tablet 00 :00 every 8 Medica l (eight) Branch hours as needed for Nausea and Vomiting (N/V). cephALEXin 2020- No [id number] 500mg Take 1 Univers (KEFLEX) 3-12 03-20 capsule by ity of 500 mg 00:00: 04:59 mouth 3 [place] capsule 00 :00 (three) Medical times Branch daily for 7 days. dicyclomine 2020- No [id number] 10mg Take 1 Univers (BENTYL) 10 3-12 03-18 capsule by i ty of mg capsule 00:00: 04:59 mouth [place] 00 :00 every 8 Medical (eight) Branch hours as needed for Abdominal pain for up to 5 days. Immunizations Ordered Filled Immunization Date Status Comments [facility] e Immunization Name Name TDAP 2012-11-20 Completed University of 00:00:00 [facility] TDAP 2012-11-20 Completed University of 00:00:00 [facility] TDAP 2012-11-20 Completed University of 00:00:00 [facility] TDAP 2012-11-20 Completed University of 00:00:00 [facility] DTAP 2002-02-27 Completed University of 00:00:00 [facility] Polio (IPV/OPV) 2002-02-27 Completed Universit y of 00:00:00 [facility] MMR 2002-02-27 Completed University of 00:00:00 [place] [facility] Pneumococcal 7 2002-02-27 Completed University of Conjugate, PCV7 00:00:00 [place] Med ical (Prevnar7) Branch DTAP 2002-02-27 Completed University of 00:00:00 [facility] MMR 2002-02-27 Completed University of 00:00:00 [facility] Pneumococcal 7 2002-02-27 Completed University of Conjugate, PCV7 00:00:00 [place] Med ical (Prevnar7) Branch Polio (IPV/OPV) 2002-02-27 Completed Universit y of 00:00:00 [facility] DTAP 2002-02-27 Completed University of 00:00:00 [facility] Polio (IPV/OPV) 2002-02-27 Completed Universit y of 00:00:00 [facility] MMR 2002-02-27 Completed University of 00:00:00 [facility] Pneumococcal 7 2002-02-27 Completed University of Conjugate, PCV7 00:00:00 [place] Med ical (Prevnar7) Branch DTAP 2002-02-27 Completed University of 00:00:00 [facility] MMR 2002-02-27 Completed University of 00:00:00 [facility] Pneumococcal 7 2002-02-27 Completed University of Conjugate, PCV7 00:00:00 [place] Med ical (Prevnar7) Branch Polio (IPV/OPV) 2002-02-27 Completed Universit y of 00:00:00 [facility] DTAP 2002-02-27 Completed University of 00:00:00 [facility] Polio (IPV/OPV) 2002-02-27 Completed Universit y of 00:00:00 [facility] MMR 2002-02-27 Completed University of 00:00:00 [facility] Pneumococcal 7 2002-02-27 Completed University of Conjugate, PCV7 00:00:00 [place] Med ical (Prevnar7) Branch DTAP 2002-02-27 Completed University of 00:00:00 [facility] MMR 2002-02-27 Completed University of 00:00:00 [facility] Pneumococcal 7 2002-02-27 Completed University of Conjugate, PCV7 00:00:00 [place] Med ical (Prevnar7) Branch Polio (IPV/OPV) 2002-02-27 Completed Universit y of 00:00:00 [facility] DTAP 2002-02-27 Completed University of 00:00:00 [facility] Polio (IPV/OPV) 2002-02-27 Completed Universit y of 00:00:00 [facility] MMR 2002-02-27 Completed University of 00:00:00 [facility] Pneumococcal 7 2002-02-27 Completed University of Conjugate, PCV7 00:00:00 [place] Med ical (Prevnar7) Branch DTAP 2002-02-27 Completed University of 00:00:00 [facility] MMR 2002-02-27 Completed University of 00:00:00 [facility] Pneumococcal 7 2002-02-27 Completed University of Conjugate, PCV7 00:00:00 [place] Med ical (Prevnar7) Branch Polio (IPV/OPV) 2002-02-27 Completed Universit y of 00:00:00 [facility] Vital Signs Vital Name Observation Time Observation Value Comments Source Systolic blood 2021-10-28 20:56:00 113 mm[Hg] [facility] Diastolic blood 2021-10-28 20:56:00 75 mm[Hg] [facility]ive [facility] Heart rate 2021-10-28 20:56:00 92 /min [facility] Body temperature 2021-10-28 20:56:00 36.83 [facility] Respiratory rate 2021-10-28 20:56:00 18 /min [facility] acute [facility] Body height 2021-10-28 20:56:00 154.9 cm [facility] Body weight 2021-10-28 20:56:00 74.39 kg [facility] BMI 2021-10-28 20:56:00 30.99 kg/m2 [facility] Heart rate 2021-10-15 02:00:00 74 /min [facility] Oxygen saturation in 2021-10-15 02:00:00 99 /min [facility] Arterial blood by [facility] Pulse oximetry Branch Systolic blood 2021-10-15 01:15:00 111 mm[Hg] [facility]iver [facility] Diastolic blood 2021-10-15 01:15:00 65 mm[Hg] [facility]ive [facility] Body temperature 2021-10-15 01:15:00 36.78 [facility] 2021-10-15 01:15:00 18 /min [facility] Body weight 2021-10-15 00:49:00 68.04 kg [facility] Systolic blood 2021-01-29 15:30:00 119 mm[Hg] Univer sity of pressure [facility] Diastolic blood 2021-01-29 15:30:00 81 mm[Hg] Unive rsity of pressure [facility] Heart rate 2021-01-29 15:30:00 65 /min [facility] Respiratory rate 2021-01-29 15:30:00 17 /min [facility] acute hospital Oxygen saturation in 2021-01-29 15:30:00 98 /min [facility] Arterial blood by [facility] Pulse oximetry Branch Body temperature 2021-01-29 14:10:00 37.06 [facility] Body weight 2021-01-29 14:10:00 68.04 kg [facility] Procedures Procedure Date / Time Performed Performing Clinician Sourmartita e DSU PRE-OP 2021-10-28 06:01:00 Doctor Unassigned, No [facility] W/O 2021-10-28 00:00:00 Lisset Calhoun [facility] SPECIFIC GRAVITY [facility] CONSENT/REFUSAL FOR 2021-10-15 00:42:20 Doctor Unassigned, No [facility] TREATMENT POCT TEST 2021-01-29 16:14:00 José Miguel Lowery [facility] URINALYSIS 2021-01-29 16:11:00 José Miguel Lowery [facility] COMP. METABOLIC PANEL 2021-01-29 14:24:00 José Miguel Lowery [facility] ([id number]) [facility] CBC WITH DIFF 2021-01-29 14:24:00 Singer [facility] NOTICE OF PRIVACY 2021-01-29 13:58:25 [facility]assigned, [facility] [place] [facility] OF PRIVACY 2021-01-29 13:58:11 Doctor Unassigned, No [facility] Encounters Start End Encounter Admission Attending Care Care Encounter Source Date/Time Date/Time Type Type Clinicians Facility Department ID 2021-11-25 2021-11-25 Outpatient R GUANAKITO FOX [facility] [id number] Univers 16:00:00 16:00:00 [id number] ity [facility] 2021-11-25 2021-11-25 Outpatient R FOXGUANAKITO [facility] [id number] Univers 16:00:00 16:00:00 ity [facility] 2021-11-11 2021-11-11 Outpatient R GUANAKITO FOX [facility] [id number] Univers 15:45:00 15:45:00 [id number] ity [facility] 2021-11-11 2021-11-11 Outpatient R FOXGUANAKITO [facility] [id number] Univers 15:45:00 15:45:00 ity [facility] 2021-11-03 2021-11-03 Outpatient Kathe MERCHANT [facility] [id number] Univers 16:40:00 16:40:00 [facility] 2021-10-28 2021-10-28 Krystal FoxGuanakito [facility] [id number] Univers 14:39:23 16:29:30 Lisset Earl [id number] ity of [place] [id number] [place] [id number] [place] [address] 2021-10-28 2021-10-28 Outpatient Kathe CALHOUN [facility] [id number] Univers 14:30:00 16:29:30 [facility] 2021-10-28 2021-10-28 Outpatient aKthe CALHOUN [facility] [id number] Univers 14:30:00 14:30:00 LISSET [id number] [facility] 2021-10-28 2021-10-28 Orders Doctor HERNANDEZ [id number] Univers 00:00:00 00:00:00 Only Unassigned, KAYLEE [id number] ity of [place] [facility] [id number] [place] [id number] [address] 2021-10-14 2021-10-14 Outpatient X GUANAKITO FOX [facility] ARAVIND [id number] Univers 18:50:00 20:22:00 [facility] 2021-10-14 2021-10-14 Emergency Guanakito Fox [facility] [id number] Univers 18:50:00 20:22:00 Ani FELIX [id number] i ty of [place] 4.2.7.2.686 [facility] [id number] [address] 2021-01-29 2021-01-29 Emergency [facility] [id number] Univers 08:04:00 11:39:00 José Miguel Felix [id number] i ty of [place] 4.2.7.2.686 [facility] [id number] [address] 2021-01-29 2021-01-29 Emergency [facility] [id number] Univers 08:04:00 08:04:00 [facility] Results Test Description Test Time Test Comments Results Result Comments Source POCT URINALYSIS W/O SPECIFIC GRAVITY 2021-10-28 21:04:00 Test Item Value Reference Range Interpretation Comme nts POCT PH U (test code = 3254) N/A 5-8 POCT U LEUK EST (test code = 3263) N/A Negative - Negative POCT U NIT (test code = 3262) N/A Negative - Negative POCT U PROT (test code = 3259) Negative Negative - Negative POCT U GLU (test code = 3256) Negative Negative - Negative POCT U KETONE (test code = 3258) N/A Negative - Negative POCT U BLD (test code = 3257) N/A Negative - Negative [facility]35 Test Item Value Reference Range Interpretation Comments APPEARANCE (test code = Hazy Clear A 4605273295) COLOR (test code = Yellow Yellow 3602398971) PH (test code = 4.8-8.0 4112255083) SP GRAVITY (test code = 1.003-1.030 4811965898) GLU U QUAL (test code = Normal Normal 3649564219) BLOOD (test code = Negative Negative 5541271292) KETONES (test code = 20 mg/dL Negative A 4274215758) PROTEIN (test code = Negative Negative 2887-8) UROBILIN (test code = 2.0 mg/dL Normal A 1068942357) BILIRUBIN (test code = Negative Negative 6497739181) NITRITE (test code = Negative Negative 2625761805) LEUK KASHMIR (test code = 25/uL Negative A 7938792052) RBC/HPF (test code = See_Comment [Autom ated message] 6116371435) The system [employer] generated this result transmit blayne reference range : 0 - 3 HPF. The refe rence range was not u sed to interpret th is result as normal/abnormal . WBC/HPF (test code = See_Comment H [Autom ated message] 0835335636) The system [employer] generated this result transmit blayne reference range : 0 - 5 HPF. The refe rence range was not u sed to interpret th is result as normal/abnormal . BACTERIA (test code = Moderate Negative A 8642964313) MUCOUS (test code = Marked Negative LPF A 4111570059) SQ EPITH (test code = HPF 1212564823) Lab Interpretation (test Abnormal code = 88474-9) [facility] [id number] 16:14:00 Test Item Value Reference Range Interpretation Comments POCT PREG (test code = 1605) negative On board controls acceptable with present C Line (test code = 3574) POCT PREG LOT # (test code = 3575) [id number] POCT PREG TEST DATE (test 2022-09-19 code = 3576) Lab Interpretation (test code = Normal 67831-9) [facility] (90843)2021-01-29 15:11:52 Test Item Value Reference Range Interpretation Comments NA (test code = 143 mmol/L 135-145 9710687812) K (test code = 3.2 mmol/L 3.5-5.0 L 9087203137) CL (test code = 102 mmol/L 98-108 5377187103) CO2 TOTAL (test code = 30 mmol/L 23-31 6140436327) AGAP (test code = 2-16 8025965470) BUN (test code = 15 mg/dL 7-23 5846501515) GLUCOSE (test code = 106 mg/dL 70-110 6320520142) CREATININE (test code = 0.81 mg/dL 0.50-1.04 7347229237) TOTAL BILI (test code = 0.9 mg/dL 0.1-1.0 6226779391) CALCIUM (test code = 9.6 mg/dL 8.6-10.6 8544061716) T PROTEIN (test code = 7.4 g/dL 6.3-8.2 4165708105) ALBUMIN (test code = 4.7 g/dL 3.5-5.0 5300075673) ALK PHOS (test code = 37 U/L 34-122 7143300038) ALTv (test code = 39 U/L 5-35 H 1742-6) AST(SGOT) (test code = 75 U/L 13-40 H 8814183183) eGFR Calculation mL/min/1.73m2 (Non-) (test code = 4658532865) eGFR Calculation mL/min/1.73m2 () (test code = 8753573366) TRUNG (test code = TRUNG) Association of Glomerular Filtration Rate (GFR) and Staging of Kidney Disease* + --+ --+ ------+| GFR (mL/min/1.73 m2) ?| With Kidney Damage ?| ?Without Kidney Damage+ --------+ --------+ +| ?>90 ?| ?Stage one ?| ? Normal ?+ ---+ ---+ -------+| ?60-89 ?| ?Stage two ?| ? Decreased GFR ? + --+ --+ ------+| ?30-59 ?| ?Stage three ?| ? Stage three ? + --+ --+ ------+| ?15-29 ?| ?Stage four ? | ? Stage four ?+ ---+ ---+ -------+| ?<15 (or dialysis) ? ?| ?Stage five ? | ? Stage five ?+ ---+ ---+ -------+ *Each stage assumes the associated GFR level has been in effect for at least three months. ?Stages 1 to 5, with or without kidney disease, indicate chronic kidney disease. Notes: Determination of stages one and two (with eGFR >59mL/min/1.73 m2) requires estimation of kidney damage for at least three months as defined by structural or functional abnormalities of the kidney, manifested by either:Pathological abnormalities or Markers of kidney damage (including abnormalities in the composition of the blood or urine or abnormalities in imaging tests). Lab Interpretation Abnormal (test code = 61436-1) [facility] WITH [id number] 14:36:28 Test Item Value Reference Range Interpretation Comments WBC (test code = See_Comment [Automated message] 0090-2) The system [employer] generated this result transmitted ref erence range: 4.30 - 1 1.10 10*3/?L. The re ference range was not u sed to interpret this result as normal/abnor mal. RBC (test code = See_Comment [Automated message] 109-8) The system [employer] generated this result transmitted ref erence range: 3.93 - 5 .25 10*6/?L. The re ference range was not u sed to interpret this result as normal/abnor mal. HGB (test code = 14.3 g/dL 11.6-15.0 718-7) HCT (test code = 41.1 % 35.7-45.2 4544-3) MCV (test code = 84.7 fL 80.6-95.5 787-2) MCH (test code = 29.5 pg 25.9-32.8 785-6) MCHC (test code = 34.8 g/dL 31.6-35.1 786-4) RDW-SD (test code 39.2 fL 39.0-49.9 = 09325-1) RDW-CV (test code 12.9 % 12.0-15.5 = 788-0) PLT (test code = See_Comment [Automated message] 347-3) The system [employer] generated this result transmitted ref erence range: 166 - 35 8 10*3/?L. The re ference range was not u sed to interpret this result as normal/abnor mal. MPV (test code = 10.5 fL 9.5-12.9 20723-3) NRBC/100 WBC (test See_Comment [Automat ed message] code = 5489705032) The syste m which generated this result transmitted ref erence range: 0.0 - 10 .0 /100 WBCs. The refer ence range was not u sed to interpret this result as normal/abnor mal. NRBC x10^3 (test <0.01 See_Comment [Automated message] code = 7875545421) The syste m which generated this result transmitted ref erence range: 10*3/?L. The reference range was not used to interpr et this result as normal/abnormal . GRAN MAT (NEUT) % 71.8 % (test code = 770-8) IMM GRAN % (test 0.40 % code = 2748638054) LYMPH % (test code 18.5 % = 736-9) MONO % (test code 7.8 % = 5905-5) EOS % (test code = 1.2 % 713-8) BASO % (test code 0.3 % = 706-2) GRAN MAT 6.81 10*3/uL 1.88-7.09 x10^3(ANC) (test code = 9092861928) IMM GRAN x10^3 0.04 10*3/uL 0.00-0.06 (test code = 3067099062) LYMPH x10^3 (test 1.76 10*3/uL 1.32-3.29 code = 731-0) MONO x10^3 (test 0.74 10*3/uL 0.33-0.92 code = 742-7) EOS x10^3 (test 0.11 10*3/uL 0.03-0.39 code = 711-2) BASO x10^3 (test 0.03 10*3/uL 0.01-0.07 code = 704-7) [facility]"
[2022-02-22 16:16] LABS: Urine Blood Negative (Negative); Urine Glucose Negative (Negative); Urine Protein Negative (Negative); Urine Specific Gravity 1.015 (1.005-1.030)
[2022-02-22 16:22] LABS: Absolute Lymphocytes (CBC) 2.2 K/uL (0.7-4.9); Hematocrit 36.2 % (36.0-45.0); Lymphocytes % 20.7 % (15.3-44.8); MPV 7.8 fL (7.6-11.3); RBC Red Blood Cell Count 4.33 M/uL (3.86-4.86)
[2022-02-22 16:26] LABS: Protime INR 1.14
[2022-02-22 16:45] LABS: Barbiturates NEGATIVE (NEGATIVE); Benzodiazepines NEGATIVE (NEGATIVE); Cocaine NEGATIVE (NEGATIVE); METHAMPHETAM POSITIVE (NEGATIVE); Methadone NEGATIVE (NEGATIVE); Opiates NEGATIVE (NEGATIVE); Phencyclidine NEGATIVE (NEGATIVE); THC Cannibis POSITIVE (NEGATIVE)
[2022-02-22 16:47] LABS: ALT/SGPT 30 U/L (12-78); AST/SGOT 17 U/L (15-37); Albumin 3.9 g/dL (3.4-5.0); Alkaline Phosphatase 57 U/L (45-117); BUN Blood Urea Nitrogen 6 mg/dL (7-18); Bicarbonate 25 mmol/L (21-32); Bilirubin Direct 0.1 mg/dL (0-0.2); Bilirubin Total 0.3 mg/dL (0.2-1.0); Glucose Level 95 mg/dL (74-106); Potassium 3.6 mmol/L (3.5-5.1); Protein, Total 7.8 g/dL (6.4-8.2); Sodium Level 141 mmol/L (136-145)
[2022-02-22 17:27] LABS: Urine Specific Gravity/Preg 1.015 (1.005-1.030)
--- NOTE | 2022-02-22 19:20 | EDPHYS ---
Physician Documentation [facility] Name: Cely Clancy Age: 26 yrs Sex: Female : 1995 Arrival Date: 02/22/2022 Time: 14:58 Bed 15 Private MD: Fernie Norwood ED Physician You Lance HPI: 02/22 15:45 This 26 yrs old Female presents to ER via Ambulatory with complaints of mental health. jr8 15:45 The patient presents to the emergency department with depression, Post . Onset: jr8 The symptoms/episode began/occurred gradually, 2 week(s) ago, and became worse and became persistent. Past psychiatric history: Prior diagnosis: no previous psychiatric diagnosis known. Associated signs and symptoms: The patient has no apparent associated signs or symptoms. Severity of symptoms: At their worst the symptoms were moderate in the emergency department the symptoms are unchanged. The patient has experienced a previous episode, but today's symptoms are worse. The patient has been recently seen by a physician:. This is a 26 y/o F that presented to ED with complaints of worsening depression. Stated that she is 2 months . Stated that she felt slight blues at first but evolved into withdrawing from friends, family, and children. Now to the point where she feels that she could hurt herself. Denies wanting to hurt children or others. Stated that she would take pills to hurt herself if she could. Saw local psychiatrist today who recommended in-patient therapy which patient agrees with at this time . 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 Flu vaccine is not up to date. - Social history:: Smoking status: Reported history of juuling and/or vaping. Patient uses street drugs, marijuana. ROS: 15:45 Eyes: Negative for injury, pain, redness, and discharge, ENT: Negative for injury, jr8 pain, and discharge, Neck: Negative for injury, pain, and swelling, Cardiovascular: Negative for chest pain, palpitations, and edema, Respiratory: Negative for shortness of breath, cough, wheezing, and pleuritic chest pain, Abdomen/GI: Negative for abdominal pain, nausea, vomiting, diarrhea, and constipation, Back: Negative for injury and pain, MS/Extremity: Negative for injury and deformity, Skin: Negative for injury, rash, and discoloration, Neuro: Negative for headache, weakness, numbness, tingling, and seizure. 15:45 Psych: Positive for depression, suicidal ideation. Exam: 15:45 Constitutional: This is a well developed, well nourished patient who is awake, alert, jr8 and in no acute distress. Tearful ENT: Nares patent. No nasal discharge, no septal abnormalities noted. Tympanic membranes are normal and external auditory canals are clear. Oropharynx with no redness, swelling, or masses, exudates, or evidence of obstruction, uvula midline. Mucous membranes moist. Neck: Trachea midline, no thyromegaly or masses palpated, and no cervical lymphadenopathy. Supple, full range of motion without nuchal rigidity, or vertebral point tenderness. No Meningismus. Cardiovascular: Regular rate and rhythm with a normal S1 and S2. No gallops, murmurs, or rubs. Normal PMI, no JVD. No pulse deficits. Respiratory: Lungs have equal breath sounds bilaterally, clear to auscultation and percussion. No rales, rhonchi or wheezes noted. No increased work of breathing, no retractions or nasal flaring. Abdomen/GI: Soft, non-tender, with normal bowel sounds. No distension or tympany. No guarding or rebound. No evidence of tenderness throughout. Back: No spinal tenderness. No costovertebral tenderness. Full range of motion. Skin: Warm, dry with normal turgor. Normal color with no rashes, no lesions, and no evidence of cellulitis. MS/ Extremity: Pulses equal, no cyanosis. Neurovascular intact. Full, normal range of motion. Neuro: Awake and alert, GCS 15, oriented to person, place, time, and situation. Cranial nerves II-XII grossly intact. Motor strength 5/5 in all extremities. Sensory grossly intact. 15:45 Psych: Behavior/mood is pleasant, cooperative, suicidal, depressed, Affect is calm, Oriented to person, place, time, Patient having thoughts of suicide. Plan for suicide is See HPI Judgement / Insight is normal. Memory is normal. Delusions/hallucinations are not present. Vital Signs: 15:14 BP 117 / 80; Pulse 79; Resp 17; Temp 99.1; Pulse Ox 99% ; Weight 68.95 kg; Height 5 ft. ap3 1 in. (154.94 cm); 15:14 Body Mass Index 28.72 (68.95 kg, 154.94 cm) ap3 MDM: 15:32 Patient medically screened. jr8 19:16 Data reviewed: vital signs, nurses notes, lab test result(s), EKG, and as a result, I jr8 will discharge patient. Data interpreted: Pulse oximetry: on room air is 99 %. Interpretation: normal. Counseling: I had a detailed discussion with the patient and/or guardian regarding: the historical points, exam findings, and any diagnostic results supporting the discharge/admit diagnosis, lab results, the need to transfer to another facility, [facility][1] does not immediately have the required specialist. ED course: Talked to Dr. Almarza at [facility] who accepted patient for further evaluation . 02/22 15:30 Order name: Acetaminophen; Complete Time: 17:02/22 15:30 Order name: Basic Metabolic Panel; Complete Time: 17:02/22 15:30 Order name: CBC with Diff; Complete Time: 16:02/22 15:30 Order name: ETOH Level; Complete Time: 17:02/22 15:30 Order name: Hepatic Function; Complete Time: 17:02/22 15:30 Order name: PT-INR; Complete Time: 16:28 02/22 15:30 Order name: Ptt, Activated; Complete Time: 16:28 02/22 15:30 Order name: Salicylate; Complete Time: 17:02 02/22 15:30 Order name: Urine Drug Screen; Complete Time: 17:02 02/22 15:30 Order name: EKG; Complete Time: 15:31 02/22 15:56 Order name: COVID-19 SARS RT PCR (Document "Date of Onset" if Symptomatic); Complete Time: 17:02/22 16:17 Order name: Urine Dipstick-Ancillary; Complete Time: 16:28 EDMS 02/22 16:17 Order name: Urine --Ancillary (enter results); Complete Time: 17:28 bd 02/22 16:27 Order name: Diet Regular; Complete Time: 16: bd 02/22 15:30 Order name: EKG - Nurse/Tech; Complete Time: 16: jr8 02/22 15:30 Order name: Labs collected and sent; Complete Time: 16: jr8 02/22 15:30 Order name: Suicide Precautions; Complete Time: 16: jr8 02/22 15:30 Order name: Suicide Screening ([place]); Complete Time: 16: jr8 02/22 15:30 Order name: Urine Dipstick-Ancillary (obtain specimen); Complete Time: 16: jr8 Administered Medications: No medications were administered Disposition Summary: 02/22/22 19:19 Transfer Ordered Transfer Location: [facility] jr8 Reason: Higher level of care jr8 Condition: Stable jr8 Problem: new jr8 Symptoms: have improved jr8 Accepting Physician: Dr. Almaraz(02/22/22 20:14) as6 Diagnosis - Suicidal ideations jr8 - mood disturbance jr8 Forms: - Medication Reconciliation Form jr8 - SBAR form jr8 Signatures: Dispatcher [employer] EDWA Mario Portillo PA PA jr8 Myrtle Call RN RN ap3 Sean Carlson RN RN as6 Corrections: (The following items were deleted from the chart) 15:20 15:17 Allergies: Klonopin; ap3 ap3 16:26 15:30 IV Saline Lock ordered. jr8 ww 20:14 19:19 Dr. Almaraz jr8 as6
--- NOTE | 2022-02-22 19:20 | ER ---
Nurse's Notes [facility] Name: Cely Clancy Age: 26 yrs Sex: Female : 1995 Arrival Date: 02/22/2022 Time: 14:58 Bed 15 Private MD: Fernie Norwood Diagnosis: Suicidal ideations; mood disturbance Presentation: 02/22 15:14 Chief complaint: Patient states: she has been sent here form Dr. Enciso's office for ap3 mental health evaluation. Patient states she is having thoughts of suicide, however she hasn't thought of how she would do it. Patient states she doesn't own a gun, and there aren't any in her home, but she does have access to pills. Patient reports having a lot of stress and could possibly have post depression. Coronavirus screen: At this time, the client does not indicate any symptoms associated with coronavirus-19. Ebola Screen: No symptoms or risks identified at this time. Initial Sepsis Screen: Does the patient meet any 2 criteria? No. Patient's initial sepsis screen is negative. Does the patient have a suspected source of infection? No. Patient's initial sepsis screen is negative. Risk Assessment: Do you want to hurt yourself or someone else? Patient reports no desire to harm self or others. Onset of symptoms was February 22, 2022. 15:14 Method Of Arrival: Ambulatory ap3 15:14 Acuity: TOMÁS 2 ap3 Triage Assessment: 15:20 General: Appears distressed, Behavior is crying. Pain: Denies pain. Neuro: Level of ap3 Consciousness is awake, alert, obeys commands, Oriented to person, place, time, situation, Gait is steady. Neuro:. Cardiovascular: Patient's skin is warm and dry. Respiratory: Airway is patent Respiratory effort is even, unlabored, Respiratory pattern is regular, symmetrical. 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 Flu vaccine is not up to date. - Social history:: Smoking status: Reported history of juuling and/or vaping. Patient uses street drugs, marijuana. Screenin:21 Abuse screen: Denies threats or abuse. Nutritional screening: No deficits noted. ap3 Tuberculosis screening: No symptoms or risk factors identified. Fall Risk None identified. Assessment: 15:45 General: Appears in no apparent distress. Behavior is cooperative, crying. General: ww Patient states that she started having thoughts on Monday about hurting herself. She doesn't have a plan but has considered taking Tylenol or Ibuprofen. She states that yesterday she started to type a note out on her phone just in case. Patient denies wanting to hurt anyone else besides herself. She states that she thought she was having a with her son and then had a and felt her DrKrzysztof lied to her and she has been upset about that. Her brother in law committed suicide a few months ago and has been trying to deal with that. She admits she just feels overwhelmed with a , 2 year and normal house hold duties. She admits to a previous suicide attempt while she was in high school where she took some medicine and cut her left forearm once. She had a friend who had post depression and did not receive any help and then committed suicide and she is scared that will be her. She has been talking to her physician and they recommended her be seen here for further evalution. . Pain: Denies pain. Neuro: Level of Consciousness is awake, alert, obeys commands, Oriented to person, place, time, situation, Moves all extremities. Speech is normal. Cardiovascular: Capillary refill < 3 seconds Patient's skin is warm and dry. Chest pain is denied. Respiratory: Airway is patent Respiratory effort is even, unlabored, Respiratory pattern is regular, symmetrical. GI: No signs and/or symptoms were reported involving the gastrointestinal system. : No signs and/or symptoms were reported regarding the genitourinary system. Urine is clear. EENT: No signs and/or symptoms were reported regarding the EENT system. Derm: Skin is intact, is healthy with good turgor, Skin is pink, warm \\T\\ dry. Musculoskeletal: No signs and/or symptoms reported regarding the musculoskeletal system. 16:20 Reassessment: Patient appears in no apparent distress at this time. No changes from ww previously documented assessment. Patient and/or family updated on plan of care and expected duration. Pain level reassessed. Patient is alert, oriented x 3, equal unlabored respirations, skin warm/dry/pink. Removed hazardous items from the room for patient safety. Patients belongings placed in bag and reviewed with 2 nurses. 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 17:08 Reassessment: Patient appears in no apparent distress at this time. No changes from ww previously documented assessment. Patient and/or family updated on plan of care and expected duration. Pain level reassessed. Patient is alert, oriented x 3, equal unlabored respirations, skin warm/dry/pink. 1:1 sitter at bedside with patient. 18:43 Reassessment: Patient appears in no apparent distress at this time. No changes from previously documented assessment. Patient and/or family updated on plan of care and expected duration. Pain level reassessed. Nurse to nurse with T[facility] at [facility]. Psych: 15:45 [place] Suicide Severity Screening: In the past month, have you wished you were ww or wished you could go to sleep and not wake up? Patient responds "yes." Based off the client's responses additional C-SSRS screening is required. "In the past month, have you actually had any thoughts of killing yourself?" Patient responds "yes." Based off the client's response additional [place] suicide severity screening questions to be further documented on paper forms. "In your lifetime, have you ever done anything, started to do anything, or prepared to do anything to end your life?" Patient responds "yes." Patient reports suicidal intent occurred greater than 3 months prior. Subjective: Patient's mood is sad, Delusions are denied, Hallucinations are denied Having thoughts of. Objective: Patient is cooperative, Speech is normal, Affect is appropriate. Interventions: Removed personal items and placed in bag. Patient placed in hospital gown. Searched person for dangerous items. Urine collected and sent for urine drug test. Safety Checks: Personal items have been removed. Door is open. patient admits to having used marijuana at times but not routinely. Commitment: Patient will be a voluntary commitment. Vital Signs: 15:14 BP 117 / 80; Pulse 79; Resp 17; Temp 99.1; Pulse Ox 99% ; Weight 68.95 kg; Height 5 ft. ap3 1 in. (154.94 cm); 15:14 Body Mass Index 28.72 (68.95 kg, 154.94 cm) ap3 ED Course: 14:58 Patient arrived in ED. as 14:58 Fernie Norwood MD is Private Physician. as 15:17 Triage completed. ap3 15:21 Arm band placed on left wrist. ap3 15:27 Mario Portillo PA is PHCP. jr8 15:27 You Lance MD is Attending Physician. jr8 15:45 Patient has correct armband on for positive identification. Placed in gown. Bed in low ww position. Call light in reach. Valuables inventory done. Patient is placed in psych hold. 15:45 No provider procedures requiring assistance completed. Initial lab(s) drawn, by oh, ww sent to lab. EKG done. Patient did not have IV access during this emergency room visit. 16:23 Sondra Connelly, RN is Primary Nurse. ww 17:29 faxed chart to [facility]. 19:10 administrative approval given by Tiffany Restrepo/ patient has been accepted to [address]/ Dr. Chriss Almaraz accepted the patient in transfer. 19:19 Primary Nurse role handed off by Sondra Connelly, JP 2 20:09 Sean Carlson, JP is Primary Nurse. as6 Administered Medications: No medications were administered Outcome: 19:19 ER care complete, transfer ordered by . jr8 20:14 Transferred by ground EMS to other acute care facility: [facility] . Transfer as6 form completed. 20:14 Condition: stable 20:14 Instructed on the need for transfer. 20:14 Patient left the ED. as6 Signatures: Lindsay Díaz Amelia as Mario Portillo PA PA jr8 Myrtle Call RN RN ap3 Ludwig Vanessa 2 Sean Carlson, JP RN as6 Sondra Connelly RN RN ww Corrections: (The following items were deleted from the chart) 15:20 15:17 Allergies: Klonopin; ap3 ap3 15:22 15:14 Chief complaint: Patient states: she has been sent here form Dr. Enciso's office ap3 for mental health evaluation. Patient states she is having thoughts of suicide, however she hasn't thought of how she would do it. Patient reports having a lot of stress and could possibly have post depression. ap3
--- NOTE | 2022-02-23 07:12 | EKG ---
Test Date: 2022-02-22 Test Time: 16:36:06 Labor Relations Director: ARMIDA MEASUREMENT RESULTS: Intervals: Rate: 58 WY: 126 QRSD: 76 QT: 426 QTc: 418 [place]: P: 43 WY: 126 QRS: 68 T: 48 INTERPRETIVE STATEMENTS: Sinus bradycardia Otherwise normal ECG No previous ECG available for comparison Electronically Signed On 02-23-22 07:09:37 CDT by Justo Vásquez
[2022-02-23 10:57] VITALS: BP 117/80; TEMP 99.1; O2SAT 99
--- NOTE | 2022-02-23 16:40 | EKG ---
Test Date: 2022-02-22 Test Time: 16:40:46 Exercise Equipment Specialist: ARMIDA MEASUREMENT RESULTS: Intervals: Rate: 59 RI: 126 QRSD: 78 QT: 436 QTc: 431 [place]: P: 39 RI: 126 QRS: 67 T: 44 INTERPRETIVE STATEMENTS: Sinus bradycardia Otherwise normal ECG Compared to ECG 02/22/2022 16:36:06 No significant changes Electronically Signed On 02-23-22 16:40:07 CDT by Justo Vásquez
== END 2022-02-22 20:14 ==
LOC: ER 14:56
DX: O90.6 Postpartum mood disturbance (principal); F41.9 Anxiety disorder, unspecified; Z20.822 Contact with and (suspected) exposure to COVID-19
CPT/HCPCS: 93005 ×2; 85025; 80048; 36415; 80320; 80329 ×2; 81025; 85610; 80076; 85730; 81003; 80307; 99285; U0003

== ENCOUNTER 2022-07-30 14:08 | Emergency (ER) | payer BC, OTHER ==
--- OUTSIDE RECORDS SUMMARY | 2022-07-30 14:12 | XMS REPORT | Continuity of Care Document ---
:1995 Author Organization [facility] t Address [address] [place] [address] Care Team Providers Name Role Phone ZOIE DONALD Primary Care Physician Unavailable GUANAKITO FOX Attending Clinician Unavailable ALEX MERCHANT Attending Clinician Unavailable Guanakito Fox MD Attending Clinician Lisset Calhoun MD Attending Clinician LISSET CALHOUN Attending Clinician Unavailable Doctor Unassigned, Orin Attending Clinician Unavailable Catalina Lowery DO Attending Clinician CATALINA LOWERY Attending Clinician Unavailable GUANAKITO FOX Admitting Clinician Unavailable Guanakito Fox MD Admitting Clinician Payers Payer Name Policy Type Policy Number Effective Date Expiration Date S sandy [facility] [id number] 2018 00:00:00 [place] [facility] [id number] 2021 HEALTH 00:00:00 Problems Condition Condition Condition Status Onset Resolution Last Treating Co mments Source Name Details Category Date Date Treatment Clinician Date Encounter Encounter Disease Active 2020-11 Uni vers for tubal for tubal 2-10 ity of ligation ligation 00:00: [place] counseling counseling 00 [facility] High-risk High-risk Disease Active 2020-11 Uni vers 2-10 ity of in third in third 00:00: [place] trimester trimester 00 [facility] Previous Previous Disease Active 2020-11 Unive rs 2-10 ity of section section 00:00: [address] History of History of Disease Active 2020-11 U roxana depression depression 2-10 it y of 00:00: [address] History of History of Disease Active 2020-11 U nivers anxiety anxiety 2-10 ity of 00:00: [address] Obesity Obesity Disease Active 2020-11 Univers during during 2-09 [place] [facility] Obesity Obesity Disease Active 2020-11 Univers (BMI (BMI 2-09 ity of 30-39.9) 30-39.9) 00:00: [place] 00 [facility] Generalize Generalize Disease Active 2016-0 U nivers d d 4-15 ity of abdominal abdominal 00:00: Mikaela orantes pain pain [facility] Contracept Contracept Disease Active 2016-0 U roxana brennon brennon 3-03 [place] [facility] Vaginal Vaginal Disease Active 2016-0 Univers bleeding bleeding 3-03 ity of 00:00: [address] Allergies, Adverse Reactions, Alerts Allergy Allergy Status Severity Reaction(s) Onset Inactive Treating Comm ents Source Name Type Date Date Clinician NO KNOWN Drug Active Univers ALLERGIE Class ity of S [facility] Social History Social Habit Start Date Stop Date Quantity Comments Source ASSERTION 2021-04-23 [facility] 00:00:00 [facility] Exposure to Not sure [facility] SARS-CoV-2 (event) Medica l [place] Alcohol intake 2021-10-28 2021-10-28 0 /d [facility] 00:00:00 00:00:00 [facility] Tobacco use and 2014-04-11 2014-04-11 Never used [facility] exposure 00:00:00 00:00:00 [facility] Sex Assigned At [birth year] [facility] 00:00:00 00:00:00 [facility] Branch Smoking Status Start Date Stop Date Source Former smoker 2014-04-11 00:00:00 2014-04-11 00:00:00 [facility] Medications Ordered Filled Start Stop Current Ordering Indication Dosage Frequency Signature Comments Components Source Medication Medication Date Date Medication? Clinician (SIG) Name Name TRAMADOL-AC No ETAMINOPHN 07-28 37.5-325 00:00: 00 TAKE 1 No TABLET BY 07-28 MOUTH EVERY 00:00: 8 HOURS FOR 00 UP TO 31 DAYS NEEDED FOR PAIN 2020-11 Yes Take by [employer] vit 2-09 mouth. ity of calc,iron,f 14:57: [place] [id number] Medical ([facility] Branch VITAMIN ORAL) 2020-11 Yes Take by [employer] vit 2-09 mouth. ity of calc,iron,f 14:57: [address] ( Branch VITAMIN ORAL) Nitrofurant 2020-11 Yes [id number] 100mg Take 1 Univers oin&Nit. 1-26 capsule by ity o f [place] 00:[place] 100 mg 00 (two) Medical capsule times [place] daily. Nitrofurant 2020-11- No [id number] 100mg Take 1 Univers oin&Nit. 1-26 12-10 capsule by ity of [place] 00:00: 00:00 mouth 2 [place] 100 mg 00 :00 (two) Medical capsule times [place] daily. haloperidol 2020- No 2.5mg 2.5 mg, [...] No 2.5mg 2.5 mg, U nivers lactate 3-12 03-12 Intravenou ity o f (HALDOL) 15:15: 15:15 [place], ONCE, 1 [place] injection [place] :00 dose, Fri Medic al 2.5 mg 01/29/21 at Branch 0915, STAT ondansetron Yes [id number] 4mg Take 1 Univers 4 mg 3-12 tablet by ity of disintegrat 00:00: mouth [place] ing tablet 00 every 8 Medica l (eight) Branch hours as needed for Nausea and Vomiting (N/V). ondansetron Yes [id number] 4mg Take 1 Univers 4 mg 3-12 tablet by ity of disintegrat 00:00: mouth [place] ing tablet 00 every 8 Medica l (eight) Branch hours as needed for Nausea and Vomiting (N/V). ondansetron Yes [id number] 4mg Take 1 Univers 4 mg 3-12 tablet by ity of disintegrat 00:00: mouth [place] ing tablet 00 every 8 Medica l (eight) Branch hours as needed for Nausea and Vomiting (N/V). ondansetron 2020- No [id number] 4mg Take 1 Univers 4 mg 3-12 12-10 tablet by ity of disintegrat 00:00: 00:00 [place] tablet 00 :00 every 8 Medica l (eight) Branch hours as needed for Nausea and Vomiting (N/V). cephALEXin 2020- No [id number] 500mg Take 1 Univers (KEFLEX) 3-12 03-20 capsule by ity of 500 mg 00:00: 04:59 mouth 3 [place] capsule 00 :00 (three) Medical times Branch daily for 7 days. dicyclomine 2020- No [id number] 10mg Take 1 Univers (BENTYL) 10 3-12 03-18 capsule by i ty of mg capsule 00:00: 04:59 mouth [place] 00 :00 every 8 Medical (eight) Branch hours as needed for Abdominal pain for up to 5 days. Immunizations Ordered Filled Immunization Date Status Comments [facility] e Immunization Name Name [facility] 2012-11-20 Completed [facility] 00:00:[address] [facility] 2012-11-20 Completed [facility] 00:00:[address] [facility] 2012-11-20 Completed University of 00:00:00 [facility] TDAP 2012-11-20 Completed University of 00:00:00 [facility] [place] [facility] Branch DTAP 2002-02-27 Completed University of 00:00:00 [facility] Polio (IPV/OPV) 2002-02-27 Completed Universit y of 00:00:00 [facility] MMR 2002-02-27 Completed University of 00:00:00 [facility] Pneumococcal 7 2002-02-27 Completed University of Conjugate, PCV7 00:00:00 [place] Med ical (Prevnar7) Branch DTAP 2002-02-27 Completed University of 00:00:00 [facility] MMR 2002-02-27 Completed University of 00:00:00 [facility] Pneumococcal 7 2002-02-27 Completed University of Conjugate, PCV7 00:00:00 [place] Med ical (Prevnar7) Branch Polio (IPV/OPV) 2002-02-27 Completed Universit y of 00:00:00 [facility] DTAP 2002-02-27 Completed University of 00:00:00 [facility] Polio (IPV/OPV) 2002-02-27 Completed Universit y of 00:00:00 [facility] MMR 2002-02-27 Completed University of 00:00:00 [facility] Pneumococcal 7 2002-02-27 Completed University of Conjugate, PCV7 00:00:00 [place] Med ical (Prevnar7) Branch DTAP 2002-02-27 Completed University of 00:00:00 [facility] MMR 2002-02-27 Completed University of 00:00:00 [facility] Pneumococcal 7 2002-02-27 Completed University of Conjugate, PCV7 00:00:00 [place] Med ical (Prevnar7) Branch Polio (IPV/OPV) 2002-02-27 Completed Universit y of 00:00:00 [facility] [place] [facility] Branch DTAP 2002-02-27 Completed University of 00:00:00 [facility] Polio (IPV/OPV) 2002-02-27 Completed Universit y of 00:00:00 [facility] MMR 2002-02-27 Completed University of 00:00:00 [facility] Pneumococcal 7 2002-02-27 Completed University of Conjugate, PCV7 00:00:00 [place] Med ical (Prevnar7) Branch DTAP 2002-02-27 Completed University of 00:00:00 [facility] MMR 2002-02-27 Completed University of 00:00:00 [facility] Pneumococcal 7 2002-02-27 Completed University of Conjugate, PCV7 00:00:00 [place] Med ical (Prevnar7) Branch Polio (IPV/OPV) 2002-02-27 Completed Universit y of 00:00:00 [facility] DTAP 2002-02-27 Completed University of 00:00:00 [facility] Polio (IPV/OPV) 2002-02-27 Completed Universit y of 00:00:00 [facility] MMR 2002-02-27 Completed University of 00:00:00 [facility] Pneumococcal 7 2002-02-27 Completed University of Conjugate, PCV7 00:00:00 [place] Med ical (Prevnar7) Branch DTAP 2002-02-27 Completed University of 00:00:00 [facility] MMR 2002-02-27 Completed University of 00:00:00 [facility] Pneumococcal 7 2002-02-27 Completed University of Conjugate, PCV7 00:00:00 [place] Med ical (Prevnar7) Branch Polio (IPV/OPV) 2002-02-27 Completed Universit y of 00:00:00 [facility] Vital Signs Vital Name Observation Time Observation Value Comments Source Systolic blood 2021-10-28 20:56:00 113 mm[Hg] [facility] pressure [facility] Diastolic blood 2021-10-28 20:56:00 75 mm[Hg] Unive rsity of pressure [facility] Heart rate 2021-10-28 20:56:00 92 /min [facility] Body temperature 2021-10-28 20:56:00 36.83 [facility] Respiratory rate 2021-10-28 20:56:00 18 /min [facility] acute hospital Body height 2021-10-28 20:56:00 154.9 cm [facility] Body weight 2021-10-28 20:56:00 74.39 kg [facility] BMI 2021-10-28 20:56:00 30.99 kg/m2 [facility] Heart rate 2021-10-15 02:00:00 74 /min [facility] Oxygen saturation in 2021-10-15 02:00:00 99 /min University of Arterial blood by [facility] Pulse oximetry Branch Systolic blood 2021-10-15 01:15:00 111 mm[Hg] Univer sity of pressure [facility] Diastolic blood 2021-10-15 01:15:00 65 mm[Hg] Unive rsity of [facility] Body temperature 2021-10-15 01:15:00 36.78 [place] [facility] Respiratory rate 2021-10-15 01:15:00 18 /min [facility] Body weight 2021-10-15 00:49:00 [facility] 2021-01-29 15:30:00 119 mm[Hg] Univer sity of [facility] Diastolic blood 2021-01-29 15:30:00 81 mm[Hg] [facility] Heart rate 2021-01-29 15:30:00 65 /min [facility] Respiratory rate 2021-01-29 15:30:00 17 /min General acute hospital Oxygen saturation in 2021-01-29 15:30:00 98 /min [facility] Arterial blood by [facility] Pulse oximetry Branch Body temperature 2021-01-29 14:10:00 37.06 [facility] Body weight 2021-01-29 14:10:00 68.04 kg [facility] Height Measured 2022-07-28 14:31:00 63.00 inches Body Temperature 2022-07-28 14:31:00 98.50 degrees Heart Rate 2022-07-28 14:31:00 77.00 /min Respiratory Rate 2022-07-28 14:31:00 BP Systolic 2022-07-28 14:31:00 106 mm[Hg] BP Diastolic 2022-07-28 14:31:00 74 mm[Hg] Weight Measured 2022-07-28 14:31:00 122.60 pounds Procedures Procedure Date / Time Performed Performing Clinician Sourc e DSU PRE-OP 2021-10-28 06:01:00 Doctor Unassigned, No [facility]AL[facility] W/O 2021-10-28 00:00:00 Lisset Calhouni ty of [place] SPECIFIC GRAVITY [facility] CONSENT/REFUSAL FOR 2021-10-15 00:42:20 Doctor Unassigned, No [facility] AND Name [facility] [place] TREATMENT POCT TEST 2021-01-29 16:14:00 LoweryCatalina pretty [facility] URINALYSIS 2021-01-29 16:11:00 Lowery, [facility] COMP. METABOLIC PANEL 2021-01-29 14:24:[address] [facility] ([id number]) [facility] CBC WITH DIFF 2021-01-29 14:24:00 [facility] NOTICE OF PRIVACY 2021-01-29 13:58:25 [facility]igned, [facility] NOTICE OF PRIVACY 2021-01-29 13:58:11 Doctor Unassigned, No Univ [facility] Plan of Care Planned Activity Planned Date Details Comments Source Goal Plan of Care Note [code = 35872-6] Goal Plan of Care Note [code = 12154-2] Goal Plan of Care Note [code = 44407-6] Goal Plan of Care Note [code = 88302-0] Goal Plan of Care Note [code = 31914-5] Goal Plan of Care Note [code = 10513-1] Goal Plan of Care Note [code = 19756-7] Encounters Start End Encounter Admission Attending Care Care Encounter Source Date/Time Date/Time Type Type Clinicians Facility Department ID 2022-07-28 2022-07-28 Outpatient [id number] 00:00:00 00:00:00 Visit [id number] 2021-11-25 2021-11-25 Outpatient GUANAKITO TEJEDA [facility] [id number] Univers 16:00:00 16:00:00 [id number] [facility] 2021-11-25 2021-11-25 Outpatient GUANAKITO TEJEDA [facility] [id number] Univers 16:00:00 16:00:00 [facility] 2021-11-11 2021-11-11 Outpatient R GUANAKITO FOX [facility] [id number] Univers 15:45:00 15:45:00 [id number] ity [facility] 2021-11-11 2021-11-11 Outpatient R GUANAKITO FOX [facility] [id number] Univers 15:45:00 15:45:00 ity [facility] 2021-11-03 2021-11-03 Outpatient R MAYUR [facility] [id number] Univers 16:40:00 16:40:00 ALEX ity [facility] 2021-10-28 2021-10-28 Initial Guanakito Fox Kev RUST [id number] Univers 14:39:23 16:29:30 Lisset Earl [id number] ity of [place]2.686 [place] PROF[place] [id number] Ma dical [address] 2021-10-28 2021-10-28 Outpatient R JANESSA [facility] [id number] Univers 14:30:00 16:29:30 LISSET [facility] 2021-10-28 2021-10-28 Outpatient R JANESSA [facility] [id number] Univers 14:30:00 14:30:00 LISSET [id number] [facility] 2021-10-28 2021-10-28 Orders Doctor HERNANDEZ [id number] Univers 00:00:00 00:00:00 Only Unassigned, KAYLEE [id number] ity of Orin [facility] 4.2.7.2.686 [place] [id number] [address] 2021-10-14 2021-10-14 Outpatient X GUANAKITO FOX [place] ARAVIND [id number] Univers 18:50:00 20:22:00 ity [facility] 2021-10-14 2021-10-14 Emergency Guanakito Fox RUST [id number] Univers 18:50:00 20:22:00 Kev LINCOLN [id number] i ty of [place] 4.2.7.2.686 [facility] [id number] [place] [id number] Branch 2021-01-29 2021-01-29 Emergency [facility] [id number] Univers 08:04:00 11:39:00 Catalina [place] [id number] i ty of [place] 4.2.7.2.686 [facility] [id number] [place] [id number] Branch 2021-01-29 2021-01-29 Emergency X SINGER RUST ERT [id number] Univers 08:04:00 08:04:00 CATALINA chow [facility] Results Test Description Test Time Test Comments [...] code = 3257) N/A Negative - Negative [facility] 16[facility]35 Test Item Value Reference Range Interpretation Comments APPEARANCE (test code = Hazy Clear A 7850491852) COLOR (test code = Yellow Yellow 7001669530) PH (test code = 4.8-8.0 8267276092) SP GRAVITY (test code = 1.003-1.030 8895738363) GLU U QUAL (test code = Normal Normal 1785916162) BLOOD (test code = Negative Negative 7255768911) KETONES (test code = 20 mg/dL Negative A 9063494295) PROTEIN (test code = Negative Negative 2887-8) UROBILIN (test code = 2.0 mg/dL Normal A 9039800306) BILIRUBIN (test code = Negative Negative 1135418659) NITRITE (test code = Negative Negative 0112552954) LEUK KASHMIR (test code = 25/uL Negative A 7578019299) RBC/HPF (test code = See_Comment [Autom ated message] 4390183569) The system [employer] generated this result transmit blayne reference range : 0 - 3 HPF. The refe rence range was not u sed to interpret th is result as normal/abnormal . WBC/HPF (test code = See_Comment H [Autom ated message] 6656535035) The system [employer] generated this result transmit blayne reference range : 0 - 5 HPF. The refe rence range was not u sed to interpret th is result as normal/abnormal . BACTERIA (test code = Moderate Negative A 0109603588) MUCOUS (test code = Marked Negative LPF A 1383134710) SQ EPITH (test code = HPF 5107944271) Lab Interpretation (test Abnormal code = 95813-2) [id number] 16:14:00 Test Item Value Reference Range Interpretation Comments POCT PREG (test code = 1605) negative On board controls acceptable with present C Line (test code = 3574) POCT PREG LOT # (test code = 3575) [id number] POCT PREG TEST DATE (test 2022-09-19 code = 3576) Lab Interpretation (test code = Normal 34184-9) [facility]. METABOLIC PANEL (55736)2021-01-29 15:11:52 Test Item Value Reference Range Interpretation Comments NA (test code = 143 mmol/L 135-145 3337583360) K (test code = 3.2 mmol/L 3.5-5.0 L 5317615904) CL (test code = 102 mmol/L 98-108 2279319923) CO2 TOTAL (test code = 30 mmol/L -31 6040118242) AGAP (test code = 2-16 6090670893) BUN (test code = 15 mg/dL 7-23 0568876541) GLUCOSE (test code = 106 mg/dL 70-110 7999905457) CREATININE (test code = 0.81 mg/dL 0.50-1.04 2114529681) TOTAL BILI (test code = 0.9 mg/dL 0.1-1.8 1636281646) CALCIUM (test code = 9.6 mg/dL 8.6-10.6 9422348139) T PROTEIN (test code = 7.4 g/dL 6.3-8.2 5003359059) ALBUMIN (test code = 4.7 g/dL 3.5-5.0 4370898276) ALK PHOS (test code = 37 U/L 34-122 0199569917) ALTv (test code = 39 U/L 5-35 H 1742-6) AST(SGOT) (test code = 75 U/L 13-40 H 7888325908) eGFR Calculation mL/min/1.73m2 (Non-) (test code = 1584056961) eGFR Calculation mL/min/1.73m2 () (test code = 4301895347) TRUNG (test code = TRUNG) Association of [...] tests). Lab Interpretation Abnormal (test code = 76174-8) [facility] WITH [id number] 14:36:28 Test Item Value Reference Range Interpretation Comments WBC (test code = See_Comment [Automated message] 6690-2) The system [employer] generated this result transmitted ref erence range: 4.30 - 1 1.10 10*3/?L. The re ference range was not u sed to interpret this result as normal/abnor mal. RBC (test code = See_Comment [Automated message] 789-8) The system [employer] generated this result transmitted ref erence range: [...] RDW-SD (test code 39.2 fL 39.0-49.9 = 24974-2) RDW-CV (test code 12.9 % 12.0-15.5 = 788-0) PLT (test code = See_Comment [Automated message] 777-3) The system [employer] generated this result transmitted ref erence range: 166 - 35 8 10*3/?L. The re ference range was not u sed to interpret this result as normal/abnor mal. MPV (test code = 10.5 fL 9.5-12.9 64381-5) NRBC/100 WBC (test See_Comment [Automat ed message] code = 4798516987) The syste Cyd[employer] which generated this result transmitted ref erence range: 0.0 - 10 .0 /100 WBCs. The refer ence range was not u sed to interpret this result as normal/abnor mal. NRBC x10^3 (test <0.01 See_Comment [Automated message] code = 2674091385) The syste m which generated this result transmitted ref erence range: 10*3/?L. The reference range was not used to interpr et this result as normal/abnormal . GRAN MAT (NEUT) % 71.8 % (test code = 770-8) IMM GRAN % (test 0.40 % code = 9447965781) LYMPH % (test code 18.5 % = 736-9) MONO % (test code 7.8 % = 5905-5) EOS % (test code = 1.2 % 713-8) BASO % (test code 0.3 % = 706-2) GRAN MAT 6.81 10*3/uL 1.88-7.09 x10^3(ANC) (test code = 1910393420) IMM GRAN x10^3 0.04 10*3/uL 0.00-0.06 (test code = 9002090845) LYMPH x10^3 (test 1.76 10*3/uL 1.32-3.29 code = 731-0) MONO x10^3 (test 0.74 10*3/uL 0.33-0.92 code = 742-7) EOS x10^3 (test 0.11 10*3/uL 0.03-0.39 code = 711-2) BASO x10^3 (test 0.03 10*3/uL 0.01-0.07 code = 704-7) [facility] by RT-PCR (HIGH RISK) 2021-01-26 00:00:00 Test Item Value Reference Range Interpretation Comments SARS-CoV-2 INTERPRETATION NEGATIVE (test code = 22730) SOURCE (test code = 93103) NASOPHARYNGEAL SARS-CoV-2 (COVID-19) by RT-PCR (HIGH RISK)2021-01-26 00:00:00 Test Item Value Reference Range Interpretation Comments SARS-CoV-2 INTERPRETATION NEGATIVE (test code = 08151) SOURCE (test code = 95451) NASOPHARYNGEAL"
[2022-07-30 15:13] LABS: Urine Blood 3+ (Negative); Urine Glucose Negative (Negative); Urine Protein 2+ (Negative); Urine Specific Gravity 1.025 (1.005-1.030)
[2022-07-30 15:22] LABS: Absolute Lymphocytes (CBC) 1.9 K/uL (0.7-4.9); Hematocrit 34.2 % (36.0-45.0); Lymphocytes % 22.2 % (15.3-44.8); MCV 86.3 fL (80-100); MPV 8.5 fL (7.6-11.3); RBC Red Blood Cell Count 3.96 M/uL (3.86-4.86)
[2022-07-30 15:41] LABS: Potassium 3.2 mmol/L (3.5-5.1)
[2022-07-30 16:22] LABS: Urine Specific Gravity/Preg 1.025 (1.005-1.030)
--- NOTE | 2022-07-30 17:54 | RAD REPORT ---
EXAM DESCRIPTION: US - Transvaginal OB - 07/30/2022 5:03 pm CLINICAL HISTORY: ABD CRAMPING, COMPARISON: Transvaginal OB dated 04/10/2019 FINDINGS: IUP identified with gestational sac measuring 2.1 cm. The crown-rump length measures 0.5 c m. A yolk sac is noted measuring 3 millimeters. heart tones are measured at 108 bpm. The left o vary measures 3.3 x 1.9 x 2.4 cm with volume of 7.8 cc. The left ovary has vascular flow. The right o vary was not visualized. In the left aspect of the uterine fundus, a rounded structure cystic and solid structure is noted. Th is measures 5.7 by 3.4 cm. This was not identified on the prior transvaginal ultrasound from 04/10/20 19. IMPRESSION: 1. Viable IUP identified measuring 6 week 2 day with HERMINIA of 03/23/2023. 2. A second complex cystic and solid measuring nearly 6 cm is identified within the uterine fundus. T his could be a second clearly abnormal gestational sac which would be consistent with a nonviable fet us or partial molar . Consider gynecologic consultation.
--- NOTE | 2022-07-30 18:47 | EDPHYS ---
Physician Documentation [facility] Name: Cely Clancy Age: 26 yrs Sex: Female : 1995 Arrival Date: 07/30/2022 Time: 14:10 Bed 19 Private MD: WILLOW Physician Mejia Rios HPI: 07/30 16:04 This 26 yrs old Female presents to ER via Ambulatory with complaints of Vaginal snw Bleeding, + Preg <12wks. 16:04 The patient presents with vaginal bleeding that is heavy, passage of tissue. Onset: The snw symptoms/episode began/occurred suddenly, today. Associated signs and symptoms: Pertinent positives: cramping, vaginal bleeding. Severity of symptoms: At their worst the symptoms were moderate. The patient has experienced a previous episode, pt had a c/s 8mo ago. The patient has not recently seen a physician. 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 - Social history:: Smoking status: Reported history of juuling and/or vaping. ROS: 16:03 Constitutional: Negative for fever, chills, and weight loss, Eyes: Negative for injury, snw pain, redness, and discharge, ENT: Negative for injury, pain, and discharge, Neck: Negative for injury, pain, and swelling, Cardiovascular: Negative for chest pain, palpitations, and edema, Respiratory: Negative for shortness of breath, cough, wheezing, and pleuritic chest pain, Abdomen/GI: Negative for abdominal pain, nausea, vomiting, diarrhea, and constipation, Back: Negative for injury and pain, MS/Extremity: Negative for injury and deformity, Skin: Negative for injury, rash, and discoloration, Neuro: Negative for headache, weakness, numbness, tingling, and seizure, Psych: Negative for depression, anxiety, suicide ideation, homicidal ideation, and hallucinations. 16:03 : Positive for vaginal bleeding, passage of tissue, fetus at work today prior to arrival. Pt states she is still having bleeding.. Exam: 16:03 Constitutional: This is a well developed, well nourished patient who is awake, alert, snw and in no acute distress. Head/Face: Normocephalic, atraumatic. Eyes: Pupils equal round and reactive to light, extra-ocular motions intact. Lids and lashes normal. Conjunctiva and sclera are non-icteric and not injected. Cornea within normal limits. Periorbital areas with no swelling, redness, or edema. ENT: Nares patent. No nasal discharge, no septal abnormalities noted. Tympanic membranes are normal and external auditory canals are clear. Oropharynx with no redness, swelling, or masses, exudates, or evidence of obstruction, uvula midline. Mucous membranes moist. Neck: Trachea midline, no thyromegaly or masses palpated, and no cervical lymphadenopathy. Supple, full range of motion without nuchal rigidity, or vertebral point tenderness. No Meningismus. Chest/axilla: Normal chest wall appearance and motion. Nontender with no deformity. No lesions are appreciated. Cardiovascular: Regular rate and rhythm with a normal S1 and S2. No gallops, murmurs, or rubs. Normal PMI, no JVD. No pulse deficits. Respiratory: Lungs have equal breath sounds bilaterally, clear to auscultation and percussion. No rales, rhonchi or wheezes noted. No increased work of breathing, no retractions or nasal flaring. Back: No spinal tenderness. No costovertebral tenderness. Full range of motion. Skin: Warm, dry with normal turgor. Normal color with no rashes, no lesions, and no evidence of cellulitis. MS/ Extremity: Pulses equal, no cyanosis. Neurovascular intact. Full, normal range of motion. Neuro: Awake and alert, GCS 15, oriented to person, place, time, and situation. Cranial nerves II-XII grossly intact. Motor strength 5/5 in all extremities. Sensory grossly intact. Cerebellar exam normal. Normal gait. Psych: Awake, alert, with orientation to person, place and time. Behavior, mood, and affect are within normal limits. 16:03 Abdomen/GI: Inspection: abdomen appears normal, Bowel sounds: normal, Palpation: moderate abdominal tenderness, in the suprapubic area. Vital Signs: 14:13 BP 132 / 98; Pulse 97; Resp 16; Temp 97.9; Pulse Ox 100% on R/A; Weight 55.34 kg; kr3 Height 5 ft. 1 in. (154.94 cm); Pain 9/10; 19:37 BP 128 / 81; Pulse 90; Resp 18; Temp 97.8; Pulse Ox 100% ; Pain 0/10; ke1 14:13 Body Mass Index 23.05 (55.34 kg, 154.94 cm) kr3 MDM: 14:29 Patient medically screened. snw 17:07 Data reviewed: vital signs, nurses notes. Data interpreted: Pulse oximetry: on room air snw is 100 %. Interpretation: normal. Counseling: I had a detailed discussion with the patient and/or guardian regarding: the historical points, exam findings, and any diagnostic results supporting the discharge/admit diagnosis, the presence of at least one elevated blood pressure reading (>120/80) during this emergency department visit, lab results, radiology results. 17:39 Special discussion: awaiting us reading. Pt notified of initial impression of 6wk IUP snw with HR. 18:14 Physician consultation: Gary Espinoza MD was called at 18:14, regarding consult, snw patient's condition. 07/30 14:29 Order name: Abo/rh Typing; Complete Time: 15:31 snw 07/30 14:29 Order name: Basic Metabolic Panel; Complete Time: 16:17 snw 07/30 14:29 Order name: CBC with Diff; Complete Time: 15:31 snw 07/30 14:29 Order name: Quantitative Hcg; Complete Time: 16:17 snw 07/30 15:13 Order name: Urine Dipstick-Ancillary; Complete Time: 15:16 EDMS 07/30 15:16 Order name: Urine --Ancillary (enter results); Complete Time: 16:24 eb 07/30 14:29 Order name: IV Saline Lock; Complete Time: 15:22 snw 07/30 14:29 Order name: Labs collected and sent; Complete Time: 15:22 snw 07/30 14:29 Order name: NPO; Complete Time: 15:22 snw 07/30 14:29 Order name: Urine Dipstick-Ancillary (obtain specimen); Complete Time: 15:22 snw 07/30 14:29 Order name: Urine Test (obtain specimen); Complete Time: 15:22 snw 07/30 15:33 Order name: US Transvaginal Ob; Complete Time: 17:57 snw Administered Medications: No medications were administered Disposition Summary: 07/30/22 18:46 Discharge Ordered Location: Home snw Condition: Stable snw Diagnosis - Threatened snw Followup: snw - With: Emergency Department - When: As needed - Reason: Worsening of condition Followup: snw - With: Private Physician - When: 2 - 3 days - Reason: Recheck today's complaints, Continuance of care, Re-evaluation by your physician Discharge Instructions: - Discharge Summary Sheet snw - Threatened Miscarriage snw - Vaginal Bleeding During , First Trimester snw Forms: - Medication Reconciliation Form snw - Thank You Letter snw - Antibiotic Education snw - Prescription Opioid Use snw Signatures: Dispatcher [employer] Gail Summers FNP-C SOFT WORK WRAPPER LAYER AND EXAMINER-Csnw Sushila Washington RN RN kr3
--- NOTE | 2022-07-30 18:47 | ER ---
Nurse's Notes [facility] Name: Cely Clancy Age: 26 yrs Sex: Female : 1995 Arrival Date: 07/30/2022 Time: 14:10 Bed 19 Private MD: Diagnosis: Threatened Presentation: 07/30 14:13 Chief complaint: Patient states: vaginal bleeding since Jul 25 started with spotting kr3 and progressed to clots now. 2 previous miscarriages, 1st one was 4 years ago and 2nd was dec 2018 had 2 living children since. Coronavirus screen: Vaccine status: Patient reports being unvaccinated. Client denies travel out of the [place] in the last 14 days. Ebola Screen: Patient denies travel to an Ebola-affected area in the 21 days before illness onset. Initial Sepsis Screen: Does the patient meet any 2 criteria? HR > 90 bpm. No. Patient's initial sepsis screen is negative. Does the patient have a suspected source of infection? Yes: Acute abdominal pain. Risk Assessment: Do you want to hurt yourself or someone else? Patient reports no desire to harm self or others. Onset of symptoms was July 25, 2022. 14:13 Method Of Arrival: Ambulatory kr3 14:13 Acuity: TOMÁS 3 kr3 Triage Assessment: 14:20 General: Appears in no apparent distress. comfortable, Behavior is calm, cooperative, kr3 appropriate for age. Pain: Complains of pain in pelvis. :. 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 - Social history:: Smoking status: Reported history of juuling and/or vaping. Screenin:42 Abuse screen: Denies threats or abuse. Denies injuries from another. Nutritional jh6 screening: No deficits noted. Tuberculosis screening: No symptoms or risk factors identified. Fall Risk None identified. Assessment: 14:42 Obstetrical Assessment: General assessment: awake and alert. General: Appears in no jh6 apparent distress. Behavior is calm, cooperative. Pain: Complains of pain in suprapubic area, right lower quadrant and left lower quadrant Pain currently is 6 out of 10 on a pain scale. Quality of pain is described as aching, sharp, Pain began 26 of July. Vital Signs: 14:13 BP 132 / 98; Pulse 97; Resp 16; Temp 97.9; Pulse Ox 100% on R/A; Weight 55.34 kg; kr3 Height 5 ft. 1 in. (154.94 cm); Pain 9/10; 19:37 BP 128 / 81; Pulse 90; Resp 18; Temp 97.8; Pulse Ox 100% ; Pain 0/10; ke1 14:13 Body Mass Index 23.05 (55.34 kg, 154.94 cm) kr3 ED Course: 14:10 Patient arrived in ED. rg4 14:19 Triage completed. kr3 14:20 Arm band placed on Patient placed in an exam room, on a stretcher. kr3 14:28 [facility]ail [facility]C [facility] snw 14:28 Mejia Rios MD is Attending Physician. snw 14:31 Kathryn Huff, JP is Primary Nurse. 6 14:42 Placed in gown. Bed in low position. Call light in reach. Side rails up X 1. 6 14:42 Urine collected:. 6 15:13 Inserted saline lock: 20 gauge in right antecubital area, using aseptic technique. 6 Blood collected. 17:05 US Transvaginal Ob In Process Unspecified. EDMS 19:08 Primary Nurse role handed off by Kathryn Huff RN 2 19:15 Rachel Dent, JP is Primary Nurse. ke1 19:36 No provider procedures requiring assistance completed. IV discontinued. ke1 Administered Medications: No medications were administered Medication: 14:45 VIS not applicable for this client. 6 Outcome: 18:46 Discharge ordered by . snw 19:36 Discharged to home ambulatory. ke1 19:36 Condition: good 19:36 Discharge instructions given to patient. 19:37 Patient left the ED. ke1 Signatures: Dispatcher [employer] EDIA Gail Garcia FNP-C ESCROW CLOSER-Julissa Beal rg4 Ludwig Vanessa mw2 Kathryn Huff, JP RN 6 Rachel Dent RN RN ke1 Sushila Washington, RN RN kr3
[2022-07-30] MEDS ORDERED: NA CHLORIDE 0.9% 1,000 ML ONE (19:39)
[2022-07-30 20:33] VITALS: O2SAT 100
[2022-07-30 20:36] VITALS: BP 128/81; TEMP 97.8
== END 2022-07-30 19:37 | disposition home or self-care (01) ==
LOC: ER 14:08
DX: O20.0 Threatened abortion (principal)
CPT/HCPCS: 85025; 80048; 36415; 86900; 81025; 86901; 84702; 81003; 76817; 99283; J7030

== ENCOUNTER 2023-07-01 10:18 | Inpatient (IN) | payer BC, OTHER ==
--- OUTSIDE RECORDS SUMMARY | 2023-07-01 10:27 | XMS REPORT | Continuity of Care Document ---
:[address] [facility] t Address [address] [facility] [address] [place] [address] Care Team Providers Name Role Phone ZOIE DONALD Primary Care Physician Unavailable ARLYN GARBER Attending Clinician Unavailable ARLYN GARBER Attending Clinician Unavailable Arlen Madden RN Attending Clinician Unavailable Pob, [facility] Main Attending Clinician Unavailable LISSET CALHOUN Attending Clinician Unavailable Doctor Unassigned, Lindrith Attending Clinician Unavailable Mitchell Acevedo RN Attending Clinician Unavailable Kia Dyson Attending Clinician Lisset Calhoun MD Attending Clinician Roger Dunlap MD Attending Clinician Lorenzo Mcmahan Attending Clinician Unavailable GUANAKITO FOX Attending Clinician Unavailable ALEX MERCHANT Attending Clinician Unavailable Guanakito Fox MD Attending Clinician José Miguel Lowery DO Attending Clinician JOSÉ MIGUEL LOWERY Attending Clinician Unavailable LISSET CALHOUN Admitting Clinician Unavailable Lisset Calhoun MD Admitting Clinician Zoie Donald Admitting Clinician Unavailable RALYN GARBER Admitting Clinician Unavailable GUANAKITO FOX Admitting Clinician Unavailable Guanakito Fox MD Admitting Clinician Payers Payer Name Policy Type Policy Number Effective Date Expiration Date S sandy [facility] [id number] 2018 00:00:00 Problems Condition Condition Condition Status Onset Resolution Last Treating Co mments Source Name Details Category Date Date Treatment Clinician Date Missed Missed Disease Active Univers 9-22 ity of 00:00: [address] Abdominal Abdominal Disease Active Uni vers pain pain 9-22 ity of affecting affecting 00:00: s 00 [facility] Nausea and Nausea and Disease Active U nivers vomiting vomiting 9-22 ity of during during 00:00: [place] 00 [facility] Vaginal Vaginal Disease Active 2021- Univers bleeding bleeding 9-20 ity of affecting affecting 00:00: s early early Medical Bran ch Anxiety Anxiety Disease Active Univers 9-20 ity of 00:00: [address] Vaginal Vaginal Disease Active 2021- Univers bleeding bleeding 9-20 ity of in in 00:00: [place] 00 [facility] Disease Active Unive rs delivery delivery 1-25 ity of delivered delivered 00:00: [facility] Encounter Encounter Disease Active 2020-11 Uni vers for tubal for tubal 2-10 ity of ligation ligation 00:00: [place] counseling counseling 00 [facility] High-risk High-risk Disease Active 2020-11 Uni vers 2-10 ity of in third in third 00:00: [place] trimester trimester 00 [facility] Previous Previous Disease Active 2020-11 Unive rs 2-10 ity of section section 00:00: [address] History of History of Disease Active 2020-11 U nivers depression depression 2-10 it y of 00:00: [place] [facility] History of History of Disease Active 2020-11 U nivers anxiety anxiety 2-10 ity of 00:00: [address] Obesity Obesity Disease Active 2020-11 Univers during during 2-09 [place] [facility] Obesity Obesity Disease Active 2020-11 Univers (BMI (BMI 2-09 ity of 30-39.9) 30-39.9) 00:00: [address] History of History of Disease Active 2020-11 Overview : Univers 0-28 Formattin ity of section section 00:00: g of this [place] [id number] note Medical might be Branch different from the original. Formattin g of this note might be different from the original. Desires trial of labor.Raul ared for trial of labor. epsPatien t declines trial of labor now.Prete rm labor. 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 9-10 ity of 00:00: [address] Generalize Generalize Disease Active 2015- U nivers d d 4-15 ity of abdominal abdominal 00:00[place] [facility] Contracept Contracept Disease Active U roxana fredis fredis 3-03 ity of management [place] [facility] Vaginal Vaginal Disease Active Univers bleeding bleeding 3-03 ity of 00:00: [address] Allergies, Adverse Reactions, Alerts Allergy Allergy Status Severity Reaction(s) Onset Inactive Treating Comm ents Source Name Type Date Date Clinician No Known DA Active U [facility]ie 9-21 [place] [facility] NO KNOWN Drug Active Univers ALLERGIE Class ity of S [facility] Social History Social Habit Start Date Stop Date Quantity Comments Source ASSERTION 2021-04-23 University 00:00:00 [facility] History of Current smoker University of tobacco use [facility] Alcohol intake 2022-09-05 2022-09-05 0 /d University of 00:00:00 00:00:00 [facility] Exposure to 2022-08-05 2022-08-15 Not sure University of SARS-CoV-2 00:00:00 10:54:00 [facility] [place] Tobacco use and 2022-08-08 2022-08-08 Smokeless tobacco Un iversity of exposure 00:00:00 00:00:00 non-user [facility] Sex Assigned At [birth year] Universit y of 00:00:00 00:00:00 [facility] Smoking Status Start Date Stop Date Source Ex-smoker 2022-08-08 00:00:00 2022-08-08 00:00:00 Universi ty of [facility] Medications Ordered Filled Start Stop Current Ordering Indication Dosage Frequency Signature Comments Components Source Medication Medication Date Date Medication? Clinician (SIG) Name Name metroNIDAZO 2021-11- No [id number] 500mg Take 1 Univers LE 500 mg 0-17 10-25 tablet by ity of tablet 00:00: 04:59 mouth [place] 00 :00 every 12 Medical (twelve) Branch hours for 7 days. metroNIDAZO 2021-11- No [id number] 500mg Take 1 Univers LE 500 mg 0-17 10-25 tablet by ity of tablet 00:00: 04:59 mouth [place] 00 :00 every 12 Medical (twelve) Branch hours for 7 days. ALPRAZolam 2021-11 Yes .5mg Take 0.5 Uni vers 0.5 mg 0-10 mg by ity of tablet 00:00: mouth in [place] [address] the Medical morning Branch and 0.5 mg at noon and 0.5 mg in the evening. propranoloL 2021-11 Yes Univer s 20 mg 0-10 ity of tablet 00:00: [place] 00 [facility] desvenlafax 2021-11 Yes Univer s ine 0-10 ity of succinate 00:00: [place] 25 mg Tb24 00 [facility] Branch ALPRAZolam 2021-11 Yes .5mg Take 0.5 Uni vers 0.5 mg 0-10 mg by ity of tablet 00:00: mouth in [place] [address] the Medical morning Branch and 0.5 mg at noon and 0.5 mg in the evening. propranoloL 2021-11 Yes Univer s 20 mg 0-10 ity of tablet 00:00: [place] 00 [facility] desvenlafax 2021-11 Yes Univer s ine 0-10 ity of succinate 00:00: [place] 25 mg Tb24 00 Medical Branch diazePAM 10 0 Yes Univer s mg tablet 08-17 ity of 00:00: [place] 00 Medical Branch buPROPion 0 Yes Univers XL 150 mg 08-17 ity of 24 hr 00:00: [place] tablet 00 Medical Branch diazePAM 10 0 Yes Univer s mg tablet 08-17 ity of 00:00: [place] 00 Medical Branch buPROPion 0 Yes Univers XL 150 mg 08-17 ity of 24 hr 00:00: [place] tablet 00 Medical Branch ketorolac 0 2021- No 30mg 30 mg, Unive rs (TORADOL) 08-12 Slow IV ity of injection 00:15: 23:29 Push, [place] 30 mg 00 :00 ONCE, 1 Medical dose, On Branch [facility] 08/11/22 at 1915, Routine ketorolac 2021- No 30mg 30 mg, Unive rs (TORADOL) 08-12 Slow IV ity of injection 00:15: 23:29 Push, [place] 30 mg 00 :00 ONCE, 1 Medical dose, On Branch [facility] 08/11/22 at 1915, Routine morpHINE (4 Yes 2mg 2 mg, Slow Univers mg/mL) 08-11 IV Push, ity of injection 2 23:11: Q5MIN PRN, [place] mg 20 5 doses, Medical Starting Branch on [place] 08/11/22 at 181, Until Discontinu ed, Routine, Pain (scale 4-6), PACU ondansetron Yes 4mg 4 mg, Slow Univers (ZOFRAN 08-11 IV Push, ity of (PF)) 23:11: PRN, 1 [place] injection 4 20 dose, Medical mg Starting Branch on [place] 08/11/22 at 181, Until Discontinu ed, Routine, Nausea and Vomiting (N/V), PACU morpHINE (4 2021- No 2mg 2 mg, Slow Univers mg/mL) 08-11 IV Push, ity of injection 2 23:11: 02:16 Q5MIN PRN, [place] mg 20 :19 5 doses, Medical Starting Branch on [place] 08/11/22 at 181, Until [place] 08/11/22 at 2116, Routine, Pain (scale 4-6), PACU ondansetron 2021- No 4mg 4 mg, Slow Univers (ZOFRAN 08-11 IV Push, ity of (PF)) 23:11: 02:16 PRN, 1 [place] injection 4 20 :19 dose, Medical mg Starting Branch on [place] 08/11/22 at 1811, Until [place] 08/11/22 at 2116, Routine, Nausea and Vomiting (N/V), PACU sugammadex 2021- No IV Push, Un gloria (BRIDION) 08-11 ONCE INTRA ity of injection 22:45: 23:00 PROCEDURE, [place] 00 :49 Starting Medical on [place] Branch 08/11/22 at 1745, Until [place] 08/11/22 at 1800, Routine, Intra-op water for Yes PRN, Univers irrigation 08-11 Starting ity o f irrigation 22:28: on [place] solution 00 08/11/22 at Medic al 1728, Branch Until [facility] ed, Routine, Intra-op water for 2021- No PRN, Univers irrigation 08-11 Starting ity of irrigation 22:28: 02:16 on [facility] [place] solution 00 :19 08/11/22 at Medic al 1728, Branch Until [facility] 08/11/22 at 2116, Routine, Intra-op ondansetron 2021- No Slow IV Un gloria (ZOFRAN 08-11 Push, ONCE ity o f (PF)) 22:25: 23:00 INTRA [place] injection 00 :49 PROCEDURE, Medi juany Starting Branch on [place] 08/11/22 at 1725, Until [place] 08/11/22 at 1800, Routine, Intra-op dexamethaso 2021- No IV Push, U nivers ne 08-11 ONCE INTRA ity of (DECADRON 22:16: 23:00 PROCEDURE, [place] PHOSPHATE) 00 :49 Starting Medic al injection on [place] Branch 08/11/22 at 1716, Until [place] 08/11/22 at 1800, Routine, Intra-op doxycycline 2021- No Oral, ONCE Univers hyclate 08-11 INTRA ity of (Vibramycin 22:15: 23:00 PROCEDURE, [place] ) capsule 00 :49 Starting Medica l on [place] Branch 08/11/22 at 1715, Until [place] 08/11/22 at 1800, BRIGID, Intra-op rocuronium 2021- No IV Push, Un [place]oria (ZEMURON) 08-11 ONCE INTRA ity of injection 22:09: 23:00 PROCEDURE, [place] 00 :49 Starting Medical on [place] Branch 08/11/22 at 1709, Until [place] 08/11/22 at 1800, Routine, Intra-op propofoL IV 2021- No Intravenou Univers infusion 08-11 s, ONCE ity of 22:09: 23:00 INTRA [place] 00 :49 PROCEDURE, Medical Starting Branch on [place] 08/11/22 at 1709, Until [place] 08/11/22 at 1800, Routine, Intra-op FENTanyl PF 2021- No Intravenou Univers (SUBLIMAZE 08-11 s, ONCE ity o f (PF)) 22:09: 23:00 INTRA [place] injection 00 :49 PROCEDURE, Medi juany Starting Branch on [place] 08/11/22 at 1709, Until [place] 08/11/22 at 1800, Routine, Intra-op lidocaine 2021- No Intravenou U nivers 1% 08-11 s, ONCE ity of (XYLOCAINE) 22:08: 23:00 INTRA [place] 100 mg/10 00 :49 PROCEDURE, Medi juany mL (1 %) Starting Branch injection on [place] 08/11/22 at 1708, Until [place] 08/11/22 at 1800, Routine, Intra-op midazolam 2021- No IV Push, Uni vers (VERSED) 08-11 ONCE INTRA ity of injection 22:03: 16:04 PROCEDURE, [place] 00 :00 Starting Medical on [place] Branch 08/11/22 at 1703, Until 08/26/22 at 1104, Routine, Intra-op lactated 2021- No Intravenou Un gloria ringers IV 08-11 s, ity of infusion 22:03: 23:00 CONTINUOUS [place] 00 :49 PRN, Medical Starting Branch on Mon08/11/22 at 1703, Until [place] 08/11/22 at 1800, Routine, Intra-op haloperidol 2021-0 2021- No 1mg 1 mg, [facility] ers lactate 08-11 Intravenou ity o f (HALDOL) 21:00: 20:57 s, ONCE, 1 [place] injection 1 00 :00 dose, On Medi juany mg [place] Branch 08/11/22 at 1600, STAT haloperidol 2021-0 202- No 1mg 1 mg, [facility] ers lactate 08-11 Intravenou ity o f (HALDOL) 21:00: 20:57 s, ONCE, 1 [place] injection 1 00 :00 dose, On Medi juany mg [facility] Branch 08/11/22 at 1600, STAT ondansetron 0 2021- No 4mg 4 mg, Slow Univers (ZOFRAN 08-11 IV Push, ity of (PF)) 19:30: 18:32 ONCE, 1 [place] injection 4 00 :00 dose, On Medi juany mg [facility] Branch 08/11/22 at 1430, BRIGID famotidine 0 2021- No 20mg 20 mg, [facility] ers (PEPCID 08-11 Slow IV ity of (PF)) 19:30: 19:29 Push, [place] injection 00 :00 ONCE, 1 Medical 20 mg dose, On Branch [facility] 08/11/22 at 1430, BRIGID ondansetron 0 2021- No 4mg 4 mg, Slow Univers (ZOFRAN 08-11 IV Push, ity of (PF)) 19:30: 18:32 ONCE, 1 [place] injection 4 00 :00 dose, On Medi juany mg [place] Branch 08/11/22 at 1430, BRIGID famotidine 0 2021- No 20mg 20 mg, [facility] ers (PEPCID 08-11 Slow IV ity of (PF)) 19:30: 19:29 Push, [place] injection 00 :00 ONCE, 1 Medical 20 mg dose, On Branch [facility] 08/11/22 at 1430, BRIGID 2021-0 Yes Take by Univer s vit 9-22 mouth. ity of calc,iron,f 19:16: [place] [address] Medical ( Branch VITAMIN ORAL) Yes Take by Univer s vit 9-22 mouth. ity of calc,iron,f 19:16: [place] [address] Medical ( Branch VITAMIN ORAL) Yes Take by Univer s vit 9-22 mouth. ity of calc,iron,f 19:16: [place] [address] Medical ( Branch VITAMIN ORAL) Yes Take by Univer s vit 9-22 mouth. ity of calc,iron,f 19:16: [place] [address] Medical ( Branch VITAMIN ORAL) Yes Take by Univer s vit 9-22 mouth. ity of calc,iron,f 19:16: [place] [address] Medical ( Branch VITAMIN ORAL) Yes Take by Univer s vit 9-22 mouth. ity of calc,iron,f 19:16: [address] ( Branch VITAMIN ORAL) Yes Take by Univer s vit 9-22 mouth. ity of calc,iron,f 19:16: [address] ( Branch VITAMIN ORAL) Yes Take by Univer s vit 9-22 mouth. ity of calc,iron,f 19:16: [place] [address] Medical ( Branch VITAMIN ORAL) Yes Take by Univer s vit 9-22 mouth. ity of calc,iron,f 19:16: [address] ( Branch VITAMIN ORAL) Yes Take by Univer s vit 9-22 mouth. ity of calc,iron,f 19:16: [address] ( Branch VITAMIN ORAL) Yes Take by Univer s vit 9-22 mouth. ity of calc,iron,f 19:16: [place] [address] Medical ( Branch VITAMIN ORAL) Yes Take by Univer s vit 9-22 mouth. ity of calc,iron,f 19:16: [place] [address] Medical ( Branch VITAMIN ORAL) Yes Take by Univer s vit 9-22 mouth. ity of calc,iron,f 19:16: [place] olic 17 Medical ( Branch VITAMIN ORAL) Yes Take by [facility] s vit 08-11 mouth. ity of calc,iron,f 19:16: [address] ( Branch VITAMIN ORAL) NaCl 0.9% 2021- No 1000mL at 999 Uni vers (NS) bolus 08-11 mL/hr, ity of infusion 17:15: 17:30 1,000 mL, [place] 1,000 mL 00 :00 IV Medical [facility] ONCE, 1 dose, On [place] 08/11/22 at 1215, STAT NaCl 0.9% 2021- No 1000mL at 999 Uni vers (NS) bolus 08-11 mL/hr, ity of infusion 17:15: 17:30 1,000 mL, [place] 1,000 mL 00 :00 IV [facility] ONCE, 1 dose, On [place] 08/11/22 at 1215, STAT morpHINE (4 2021- No 4mg 4 mg, Slow Univers mg/mL) 08-11 IV Push, ity of injection 4 16:45: 16:05 ONCE, 1 [place] mg 00 :00 dose, On [facility] 08/11/22 at 1145, STAT morpHINE (4 2021- No 4mg 4 mg, Slow Univers mg/mL) 08-11 IV Push, ity of injection 4 16:45: 16:05 ONCE, 1 [place] mg 00 :00 dose, On [facility] 08/11/22 at 1145, STAT proMETHazin 2021- No 12.5mg 12.5 mg, Univers e 08-11 IV ity of (PHENERGAN) 16:00: 16:09 [place], [place] 12.5 mg in 00 :00 ONCE, 1 Medica l NaCl 0.9% dose, On Branch (NS) 50 mL [place] IV 08/11/22 at piggyback 1100, BRIGID proMETHazin 2021- No 12.5mg 12.5 mg, Univers e 08-11 IV ity of (PHENERGAN) 16:00: 16:09 [place], [place] 12.5 mg in 00 :00 ONCE, 1 Medica l NaCl 0.9% dose, On Branch (NS) 50 mL [place] IV 08/11/22 at piggyback 1100, BRIGID ondansetron 2021- No 4mg 4 mg, Slow Univers (ZOFRAN 08-11 IV Push, ity of (PF)) 15:15: 15:11 ONCE, 1 [place] injection 4 00 :00 dose, On Medi juany mg [place] Branch 08/11/22 at 1015, BRIGID ondansetron 202- No 4mg 4 mg, Slow Univers (ZOFRAN 08-11 IV Push, ity of (PF)) 15:15: 15:11 ONCE, 1 [place] injection 4 00 :00 dose, On Medi juany mg [place] Branch 08/11/22 at 1015, BRIGID ibuprofen 2021-0 Yes [id number] 800mg Take 1 Univers 800 mg 9-22 tablet by ity of tablet 00:00: mouth [place] 00 every 6 Medical (six) Branch hours as needed for Alternate with [place] for pain scale 4-6. amoxicillin 2021-0 Yes [id number] 500mg Take 1 Univers -pot 9-22 tablet by ity of clavulanate 00:00: mouth in [place] 500 mg 00 the Medical (AUGMENTIN) morning Branc h 500-125 mg and 1 tablet tablet at noon and 1 tablet in the evening. methylergon 2021-0 Yes [id number] 200ug Take 1 Univers ovine 0.2 9-22 tablet by ity o f mg tablet 00:00: mouth [place] 00 every 6 Medical (six) Branch hours. ibuprofen 2021-0 Yes [id number] 800mg Take 1 Univers 800 mg 9-22 tablet by ity of tablet 00:00: mouth [place] 00 every 6 Medical (six) Branch hours as needed for Alternate with [place] for pain scale 4-6. amoxicillin 2021-0 Yes [id number] 500mg Take 1 Univers -pot 9-22 tablet by ity of clavulanate 00:00: mouth in [place] 500 mg 00 the Medical (AUGMENTIN) morning Branc h 500-125 mg and 1 tablet tablet at noon and 1 tablet in the evening. methylergon 2021-0 Yes [id number] 200ug Take 1 Univers ovine 0.2 9-22 tablet by ity o f mg tablet 00:00: mouth [place] 00 every 6 Medical (six) Branch hours. ibuprofen 2021-0 Yes [id number] 800mg Take 1 Univers 800 mg 9-22 tablet by ity of tablet 00:00: mouth [place] 00 every 6 Medical (six) Branch hours as needed for Alternate with [place] for pain scale 4-6. amoxicillin 2021-0 Yes [id number] 500mg Take 1 Univers -pot 9-22 tablet by ity of clavulanate 00:00: mouth in [place] 500 mg 00 the Medical (AUGMENTIN) morning Branc h 500-125 mg and 1 tablet tablet at noon and 1 tablet in the evening. methylergon 2021-0 Yes [id number] 200ug Take 1 Univers ovine 0.2 9-22 tablet by ity o f mg tablet 00:00: mouth [place] 00 every 6 Medical (six) Branch hours. ibuprofen 2021-0 Yes [id number] 800mg Take 1 Univers 800 mg 9-22 tablet by ity of tablet 00:00: mouth [place] 00 every 6 Medical (six) Branch hours as needed for Alternate with [place] for pain scale 4-6. amoxicillin 2021-0 Yes [id number] 500mg Take 1 Univers -pot 9-22 tablet by ity of clavulanate 00:00: mouth in [place] 500 mg 00 the Medical (AUGMENTIN) morning Branc h 500-125 mg and 1 tablet tablet at noon and 1 tablet in the evening. methylergon 2021-0 Yes [id number] 200ug Take 1 Univers ovine 0.2 9-22 tablet by ity o f mg tablet 00:00: mouth [place] 00 every 6 Medical (six) Branch hours. ibuprofen 2021-0 Yes [id number] 800mg Take 1 Univers 800 mg 9-22 tablet by ity of tablet 00:00: mouth [place] 00 every 6 Medical (six) Branch hours as needed for Alternate with [place] for pain scale 4-6. amoxicillin 2021-0 Yes [id number] 500mg Take 1 Univers -pot 9-22 tablet by ity of clavulanate 00:00: mouth in [place] 500 mg 00 the Medical (AUGMENTIN) morning Branc h 500-125 mg and 1 tablet tablet at noon and 1 tablet in the evening. methylergon 2022-0 Yes [id number] 200ug Take 1 Univers ovine 0.2 9-22 tablet by ity o f mg tablet 00:00: mouth [place] 00 every 6 Medical (six) Branch hours. ibuprofen 2022-0 Yes [id number] 800mg Take 1 Univers 800 mg 9-22 tablet by ity of tablet 00:00: mouth [place] 00 every 6 Medical (six) Branch hours as needed for Alternate with [place] for pain scale 4-6. amoxicillin 2022-0 Yes [id number] 500mg Take 1 Univers -pot 9-22 tablet by ity of clavulanate 00:00: mouth in [place] 500 mg 00 the Medical (AUGMENTIN) morning Branc h 500-125 mg and 1 tablet tablet at noon and 1 tablet in the evening. methylergon 2022-0 Yes [id number] 200ug Take 1 Univers ovine 0.2 9-22 tablet by ity o f mg tablet 00:00: mouth [place] 00 every 6 Medical (six) Branch hours. ibuprofen 2-0 Yes [id number] 800mg Take 1 Univers 800 mg 9-22 tablet by ity of tablet 00:00: mouth [place] 00 every 6 Medical (six) Branch hours as needed for Alternate with [place] for pain scale 4-6. amoxicillin 2-0 Yes [id number] 500mg Take 1 Univers -pot 9-22 tablet by ity of clavulanate 00:00: mouth in [place] 500 mg 00 the Medical (AUGMENTIN) morning Branc h 500-125 mg and 1 tablet tablet at noon and 1 tablet in the evening. methylergon 2022-0 Yes [id number] 200ug Take 1 Univers ovine 0.2 9-22 tablet by ity o f mg tablet 00:00: mouth [place] 00 every 6 Medical (six) Branch hours. ibuprofen 2022-0 Yes [id number] 800mg Take 1 Univers 800 mg 9-22 tablet by ity of tablet 00:00: mouth [place] 00 every 6 Medical (six) Branch hours as needed for Alternate with [place] for pain scale 4-6. amoxicillin 2022-0 Yes [id number] 500mg Take 1 Univers -pot 9-22 tablet by ity of clavulanate 00:00: mouth in [place] 500 mg 00 the Medical (AUGMENTIN) morning Branc h 500-125 mg and 1 tablet tablet at noon and 1 tablet in the evening. methylergon 2022-0 Yes [id number] 200ug Take 1 Univers ovine 0.2 9-22 tablet by ity o f mg tablet 00:00: mouth [place] 00 every 6 Medical (six) Branch hours. ibuprofen 2021-0 Yes [id number] 800mg Take 1 Univers 800 mg 9-22 tablet by ity of tablet 00:00: mouth [place] 00 every 6 Medical (six) Branch hours as needed for Alternate with [place] for pain scale 4-6. amoxicillin 2021-0 Yes [id number] 500mg Take 1 Univers -pot 9-22 tablet by ity of clavulanate 00:00: mouth in [place] 500 mg 00 the Medical (AUGMENTIN) morning Branc h 500-125 mg and 1 tablet tablet at noon and 1 tablet in the evening. methylergon 2021-0 Yes [id number] 200ug Take 1 Univers ovine 0.2 9-22 tablet by ity o f mg tablet 00:00: mouth [place] 00 every 6 Medical (six) Branch hours. ibuprofen 2021-0 Yes [id number] 800mg Take 1 Univers 800 mg 9-22 tablet by ity of tablet 00:00: mouth [place] 00 every 6 Medical (six) Branch hours as needed for Alternate with [place] for pain scale 4-6. amoxicillin 2021-0 Yes [id number] 500mg Take 1 Univers -pot 9-22 tablet by ity of clavulanate 00:00: mouth in [place] 500 mg 00 the Medical (AUGMENTIN) morning Branc h 500-125 mg and 1 tablet tablet at noon and 1 tablet in the evening. methylergon 2021-0 Yes [id number] 200ug Take 1 Univers ovine 0.2 9-22 tablet by ity o f mg tablet 00:00: mouth [place] 00 every 6 Medical (six) Branch hours. ibuprofen 2022-0 Yes [id number] 800mg Take 1 Univers 800 mg 9-22 tablet by ity of tablet 00:00: mouth [place] 00 every 6 Medical (six) Branch hours as needed for Alternate with [place] for pain scale 4-6. methylergon 2022-0 Yes [id number] 200ug Take 1 Univers ovine 0.2 9-22 tablet by ity o f mg tablet 00:00: mouth [place] 00 every 6 Medical (six) Branch hours. ibuprofen Yes [id number] 800mg Take 1 Univers 800 mg 9-22 tablet by ity of tablet 00:00: mouth [place] 00 every 6 Medical (six) Branch hours as needed for Alternate with [place] for pain scale 4-6. methylergon Yes [id number] 200ug Take 1 Univers ovine 0.2 9-22 tablet by ity o f mg tablet 00:00: mouth [place] 00 every 6 Medical (six) Branch hours. amoxicillin 2021- No [id number] 500mg Take 1 Univers -pot 9-22 10-17 tablet by ity of clavulanate 00:00: 00:00 mouth in [place] 500 mg 00 :00 the Medical (AUGMENTIN) morning Branc h 500-125 mg and 1 tablet tablet at noon and 1 tablet in the evening. amoxicillin 2021- No [id number] 500mg Take 1 Univers -pot 9-22 10-17 tablet by ity of clavulanate 00:00: 00:00 mouth in [place] 500 mg 00 :00 the Medical (AUGMENTIN) morning Branc h 500-125 mg and 1 tablet tablet at noon and 1 tablet in the evening. HYDROcodone 2021- No [id number] 1{tbl} Take 1 U nivers -acetaminop 9-22 09-30 tablet by it y of hen 5-325 00:00: 04:59 mouth [place] mg tablet 00 :00 every 6 Medical (six) Branch hours as needed for Pain (scale 7-10) for up to 7 days. Indication s: acute pain HYDROcodone 2021- No 4647 1{tbl} Take 1 U nivers -acetaminop 9-22 09-30 tablet by it y of hen 5-325 00:00: 04:59 mouth [place] mg tablet 00 :00 every 6 Medical (six) Branch hours as needed for Pain (scale 7-10) for up to 7 days. Indication s: acute pain HYDROcodone 2021- No 4647 1{tbl} Take 1 U nivers -acetaminop 9-22 09-30 tablet by it y of hen 5-325 00:00: 04:59 mouth [place] mg tablet 00 :00 every 6 Medical (six) Branch hours as needed for Pain (scale 7-10) for up to 7 days. Indication s: acute pain HYDROcodone 2021- No [id number] 1{tbl} Take 1 U nivers -acetaminop 9-22 09-30 tablet by it y of hen 5-325 00:00: 04:59 mouth [place] mg tablet 00 :00 every 6 Medical (six) Branch hours as needed for Pain (scale 7-10) for up to 7 days. Indication s: acute pain HYDROcodone 2021- No 4647 1{tbl} Take 1 U nivers -acetaminop 9-22 09-30 tablet by it y of hen 5-325 00:00: 04:59 mouth [place] mg tablet 00 :00 every 6 Medical (six) Branch hours as needed for Pain (scale 7-10) for up to 7 days. Indication s: acute pain HYDROcodone 2021- No 4647 1{tbl} Take 1 U nivers -acetaminop 9-22 09-30 tablet by it y of hen 5-325 00:00: 04:59 mouth [place] mg tablet 00 :00 every 6 Medical (six) Branch hours as needed for Pain (scale 7-10) for up to 7 days. Indication s: acute pain HYDROcodone 2021- No 4647 1{tbl} Take 1 U nivers -acetaminop 9-22 09-30 tablet by it y of hen 5-325 00:00: 04:59 mouth [place] mg tablet 00 :00 every 6 Medical (six) Branch hours as needed for Pain (scale 7-10) for up to 7 days. Indication s: acute pain ondansetron 2021-0 Yes [id number] 8mg Take 1 Univers 8 mg 9-21 tablet by ity of disintegrat 00:00: mouth [place] ing tablet 00 every 8 Medica l (eight) Branch hours as needed for Nausea and Vomiting (N/V). ondansetron 2021-0 Yes [id number] 8mg Take 1 Univers 8 mg 9-21 tablet by ity of disintegrat 00:00: mouth [place] ing tablet 00 every 8 Medica l (eight) Branch hours as needed for Nausea and Vomiting (N/V). ondansetron 2-0 Yes [id number] 8mg Take 1 Univers 8 mg 9-21 tablet by ity of disintegrat 00:00: mouth [place] ing tablet 00 every 8 Medica l (eight) Branch hours as needed for Nausea and Vomiting (N/V). ondansetron 2-0 Yes [id number] 8mg Take 1 Univers 8 mg 9-21 tablet by ity of disintegrat 00:00: mouth [place] ing tablet 00 every 8 Medica l (eight) Branch hours as needed for Nausea and Vomiting (N/V). ondansetron 2-0 Yes [id number] 8mg Take 1 Univers 8 mg 9-21 tablet by ity of disintegrat 00:00: mouth [place] ing tablet 00 every 8 Medica l (eight) Branch hours as needed for Nausea and Vomiting (N/V). ondansetron 2-0 Yes [id number] 8mg Take 1 Univers 8 mg 9-21 tablet by ity of disintegrat 00:00: mouth [place] ing tablet 00 every 8 Medica l (eight) Branch hours as needed for Nausea and Vomiting (N/V). ondansetron 2-0 Yes [id number] 8mg Take 1 Univers 8 mg 9-21 tablet by ity of disintegrat 00:00: mouth [place] ing tablet 00 every 8 Medica l (eight) Branch hours as needed for Nausea and Vomiting (N/V). ondansetron 2-0 Yes [id number] 8mg Take 1 Univers 8 mg 9-21 tablet by ity of disintegrat 00:00: mouth [place] ing tablet 00 every 8 Medica l (eight) Branch hours as needed for Nausea and Vomiting (N/V). ondansetron 2-0 Yes [id number] 8mg Take 1 Univers 8 mg 9-21 tablet by ity of disintegrat 00:00: mouth [place] ing tablet 00 every 8 Medica l (eight) Branch hours as needed for Nausea and Vomiting (N/V). ondansetron 2-0 Yes [id number] 8mg Take 1 Univers 8 mg 9-21 tablet by ity of disintegrat 00:00: mouth [place] ing tablet 00 every 8 Medica l (eight) Branch hours as needed for Nausea and Vomiting (N/V). ondansetron 2-0 Yes [id number] 8mg Take 1 Univers 8 mg 9-21 tablet by ity of disintegrat 00:00: mouth [place] ing tablet 00 every 8 Medica l (eight) Branch hours as needed for Nausea and Vomiting (N/V). ondansetron 0 Yes [id number] 8mg Take 1 Univers 8 mg 9-21 tablet by ity of disintegrat 00:00: mouth [place] ing tablet 00 every 8 Medica l (eight) Branch hours as needed for Nausea and Vomiting (N/V). ondansetron 0 Yes [id number] 8mg Take 1 Univers 8 mg 9-21 tablet by ity of disintegrat 00:00: mouth [place] ing tablet 00 every 8 Medica l (eight) Branch hours as needed for Nausea and Vomiting (N/V). ondansetron 0 Yes [id number] 8mg Take 1 Univers 8 mg 9-21 tablet by ity of disintegrat 00:00: mouth [place] ing tablet 00 every 8 Medica l (eight) Branch hours as needed for Nausea and Vomiting (N/V). LORazepam Yes TAKE 1 Univer s 0.5 mg 9-21 TABLET BY ity of tablet 00:00: MOUTH [place] 00 EVERY 8 Medical HOURS Branch NEEDED FOR ANXIETY ondansetron 0 Yes [id number] 8mg Take 1 Univers 8 mg 9-21 tablet by ity of disintegrat 00:00: mouth [place] ing tablet 00 every 8 Medica l (eight) Branch hours as needed for Nausea and Vomiting (N/V). LORazepam Yes TAKE 1 Univer s 0.5 mg 9-21 TABLET BY ity of tablet 00:00: MOUTH [place] 00 EVERY 8 Medical HOURS Branch NEEDED FOR ANXIETY Yes Take by [facility] vit 9-19 mouth. ity of calc,iron,f 11:16: [place] [id number] Medical ( Branch VITAMIN ORAL) Yes Take by [facility] vit 9-19 mouth. ity of calc,iron,f 11:16: [place] [id number] Medical ( Branch VITAMIN ORAL) 0 Yes Take by [facility] vit 9-19 mouth. ity of calc,iron,f 11:16: [place] [id number] Medical ( Branch VITAMIN ORAL) Yes Take by [facility] vit 9-19 mouth. ity of calc,iron,f 11:16: [place] [id number] Medical ( Branch VITAMIN ORAL) TRAMADOL-AC 2022-0 No ETAMINOPHN 08 37.5-325 00:00: 00 TAKE 1 2021-0 No TABLET BY 07-28 MOUTH EVERY 00:00: 8 HOURS FOR 00 UP TO 31 DAYS NEEDED FOR PAIN dextroamphe 2021-0 Yes Kelley s tamine-amph 8-18 ity of etamine 20 00:00: [place] mg tablet 00 Medical Branch dextroamphe 2021-0 Yes Kelley s tamine-amph 8-18 ity of etamine 20 00:00: [place] mg tablet 00 Medical Branch dextroamphe 2021-[address] [facility] ity of etamine 20 00:00: [place] mg tablet 00 Medical Branch dextroamphe 2021-0 Yes Kelley s tamine-amph 8-18 ity of etamine 20 00:00: [place] mg tablet 00 Medical Branch dextroamphe 2021-0 Yes Kelley s tamine-amph 8-18 ity of etamine 20 00:00: [place] mg tablet 00 Medical Branch dextroamphe 2021-0 Yes Kelley s tamine-amph 8-18 ity of etamine 20 00:00: [place] mg tablet 00 Medical Branch dextroamphe 2021-0 Yes Kelley s tamine-amph 8-18 ity of etamine 20 00:00: [place] mg tablet 00 Medical Branch dextroamphe 2021-0 Yes Kelley s tamine-amph 8-18 ity of etamine 20 00:00: [place] mg tablet 00 Medical Branch dextroamphe 2021-0 Yes Kelley s tamine-amph 8-18 ity of etamine 20 00:00: [place] mg tablet 00 Medical Branch dextroamphe 2021-0 Yes Kelley s tamine-amph 8-18 ity of etamine 20 00:00: [place] mg tablet 00 Medical Branch dextroamphe 2021-0 Yes Kelley s tamine-amph 8-18 ity of etamine 20 00:00: [place] mg tablet 00 Medical Branch dextroamphe 2021-0 Yes Kelley s tamine-amph 8-18 ity of etamine 20 00:00: [place] mg tablet 00 Medical Branch dextroamphe 2021-0 Yes Kelley s tamine-amph 8-18 ity of etamine 20 00:00: [place] mg tablet 00 Medical Branch dextroamphe Yes Univer s tamine-amph 8-18 ity of etamine 20 00:00: [place] mg tablet 00 [facility] dextroamphe Yes Univer s tamine-amph 8-18 ity of etamine 20 00:00: [place] mg tablet 00 [facility] dextroamphe Yes Univer s tamine-amph 8-18 ity of etamine 20 00:00: [place] mg tablet 00 [facility] dextroamphe Yes Univer s tamine-amph 8-18 ity of etamine 20 00:00: [place] mg tablet 00 [facility] dextroamphe Yes Univer s tamine-amph 8-18 ity of etamine 20 00:00: [place] mg tablet 00 [facility] zolpidem 10 Yes TAKE 1/2 [place] mg tablet 7-18 TO 1 ity of 00:00: TABLET BY [place] [address] MOUTH Medical DAILY AT [facility] zolpide 10 Yes TAKE 1/2 [place] mg tablet 7-18 TO 1 ity of 00:00: TABLET BY [place] [address] MOUTH Medical DAILY AT [facility] zolpide 10 Yes TAKE 1/2 [place] mg tablet 7-18 TO 1 ity of 00:00: TABLET BY [place] [address] MOUTH Medical DAILY AT [facility] zolpide 10 Yes TAKE 1/2 [place] mg tablet 7-18 TO 1 ity of 00:00: TABLET BY [place] [address] MOUTH Medical DAILY AT [facility] zolpide 10 Yes TAKE 1/2 Un [place] mg tablet 7-18 TO 1 ity of 00:00: TABLET BY [place] [address] MOUTH Medical DAILY AT [facility] zolpide 10 Yes TAKE 1/2 [place] mg tablet 7-18 TO 1 ity of 00:00: TABLET BY [place] [address] MOUTH Medical DAILY AT [facility] zolpide 10 Yes TAKE 1/2 [place] mg tablet 7-18 TO 1 ity of 00:00: TABLET BY [place] [address] MOUTH Medical DAILY AT [facility] zolpide 10 Yes TAKE 1/2 [place] mg tablet 7-18 TO 1 ity of 00:00: TABLET BY [place] [address] MOUTH Medical DAILY AT [facility] zolpide 10 Yes TAKE 1/2 [place] mg tablet 7-18 TO 1 ity of 00:00: TABLET BY [place] [address] MOUTH Medical DAILY AT [facility] zolpide 10 Yes TAKE 1/2 [place] mg tablet 7-18 TO 1 ity of 00:00: TABLET BY [place] [address] MOUTH Medical DAILY AT [facility] Yes TAKE 1/2 [place] mg tablet 7-18 TO 1 ity of 00:00: TABLET BY [place] [address] MOUTH Medical DAILY AT [facility] Yes TAKE 1/2 Un [place] mg tablet 7-18 TO 1 ity of 00:00: TABLET BY [place] [address] MOUTH Medical DAILY AT [facility] Yes TAKE 1/2 Un [place] mg tablet 7-18 TO 1 ity of 00:00: TABLET BY [place] [address] MOUTH [facility] DAILY AT [facility] [place] [address] Yes TAKE 1/2 Un [place] mg tablet 7-18 TO 1 ity of 00:00: TABLET BY [place] [address] MOUTH Medical DAILY AT [facility] [place] [address] Yes TAKE 1/2 Un [place] mg tablet 7-18 TO 1 ity of 00:00: TABLET BY [place] [address] MOUTH Medical DAILY AT [facility] [place] [address] Yes TAKE 1/2 Un [place] mg tablet 7-18 TO 1 ity of 00:00: TABLET BY [place] [address] MOUTH Medical DAILY AT [facility] [place] [address] Yes TAKE 1/2 Un [place] mg tablet 7-18 TO 1 ity of 00:00: TABLET BY [place] [address] MOUTH Medical DAILY AT [facility] zolde 10 Yes TAKE 1/2 [place] mg tablet 7-18 TO 1 ity of 00:00: TABLET BY [place] [address] MOUTH Medical DAILY AT [facility] desvenlafax Yes Univer s ine 7-15 ity of succinate 00:00: [place] 50 mg 24 hr 00 [facility]-15 ity of succinate 00:00: [place] 50 mg 24 hr 00 [facility] ine 7-15 ity of succinate 00:00: [place] 50 mg 24 hr 00 Medical tablet Branch desvenlafax 0 Yes Kelley s ine 7-15 ity of succinate 00:00: [place] 50 mg 24 hr 00 Medical tablet Branch desvenlafax 0 Yes Kelley s ine 7-15 ity of succinate 00:00: [place] 50 mg 24 hr 00 Medical tablet Branch desvenlafax 0 Yes Kelley s ine 7-15 ity of succinate 00:00: [place] 50 mg 24 hr 00 Medical tablet Branch desvenlafax 0 Yes Kelley orantes ine 7-15 ity of succinate 00:00: [place] 50 mg 24 hr 00 Medical tablet Branch desvenlafax 0 Yes Kelley orantes ine 7-15 ity of succinate 00:00: [place] 50 mg 24 hr 00 Medical tablet Branch desvenlafax 0 Yes Kelley orantes ine 7-15 ity of succinate 00:00: [place] 50 mg 24 hr 00 Medical tablet Branch desvenlafax Yes Kelley orantes ine 7-15 ity of succinate 00:00: [place] 50 mg 24 hr 00 Medical tablet Branch desvenlafax Yes Kelley orantes ine 7-15 ity of succinate 00:00: [place] 50 mg 24 hr 00 Medical tablet Branch desvenlafax Yes Kelley orantes ine 7-15 ity of succinate 00:00: [place] 50 mg 24 hr 00 Medical tablet Branch desvenlafax 0 Yes Kelley orantes ine 7-15 ity of succinate 00:00: [place] 50 mg 24 hr 00 Medical tablet Branch desvenlafax 0 Yes Kelley orantes ine 7-15 ity of succinate 00:00: [place] 50 mg 24 hr 00 Medical tablet Branch desvenlafax 0 Yes Kelley orantes ine 7-15 ity of succinate 00:00: [place] 50 mg 24 hr 00 Medical tablet Branch desvenlafax 0 Yes Kelley orantes ine 7-15 ity of succinate 00:00: [place] 50 mg 24 hr 00 Medical tablet Branch desvenlafax 0 Yes Kelley orantes ine 7-15 ity of succinate 00:00: [place] 50 mg 24 hr 00 Medical tablet Branch desvenlafax Yes [facility] [place] [facility] ine 7-15 ity of succinate 00:00: [place] 50 mg 24 hr 00 Medical tablet Branch 2020-11 Yes Take by [facility] [place] [facility] vit 2-09 mouth. ity of calc,iron,f 14:57: [place] [id number] Medical ([facility] Branch VITAMIN ORAL) 2020-11 Yes Take by [facility] [place] [facility] vit 2-09 mouth. ity of calc,iron,f 14:57: [place] [id number] Medical ([facility] Branch VITAMIN ORAL) Nitrofurant 2020-11 Yes [id number] 100mg Take 1 Univers oin&Nit. 1-26 capsule by ity o f [place] 00:[place]: [place] 00 (two) Medical capsule times [place] daily. Nitrofurant 2020-11- No [id number] 100mg Take 1 Univers oin&Nit. 1-26 12-10 capsule by ity of [place] 00:00: 00:00 mouth 2 [place] 100 mg 00 :00 (two) Medical capsule times [place] daily. haloperidol 2020- No 2.5mg 2.5 mg, [...] 01/29/21 at Branch 0915, STAT ondansetron Yes [id number] 4mg Take 1 Univers 4 mg -12 tablet by ity of disintegrat 00:00: mouth [place] ing tablet 00 every 8 Medica l (eight) Branch hours as needed for Nausea and Vomiting (N/V). ondansetron Yes [id number] 4mg Take 1 Univers 4 mg 3-12 tablet by ity of disintegrat 00:00: mouth [place] ing tablet 00 every 8 Medica l (eight) Branch hours as needed for Nausea and Vomiting (N/V). ondansetron Yes [id number] 4mg Take 1 Univers 4 mg 3-12 tablet by ity of disintegrat 00:00: mouth [place] ing tablet 00 every 8 Medica l (eight) Branch hours as needed for Nausea and Vomiting (N/V). ondansetron 2020- No [id number] 4mg Take 1 Univers 4 mg 3-12 12-10 tablet by ity of disintegrat 00:00: 00:[place] 00 :00 every 8 Medica l (eight) Branch hours as needed for Nausea and Vomiting (N/V). cephALEXin 2020- No [id number] 500mg Take 1 Univers (KEFLEX) 3-12 03-20 capsule by ity of 500 mg 00:00: 04:59 mouth 3 [place] capsule 00 :00 (three) Medical times Branch daily for 7 days. dicyclomine 2020- No [id number] 10mg Take 1 Univers (BENTYL) 10 3-12 03-18 capsule by i ty of mg capsule 00:00: 04:59 mouth [place] 00 :00 every 8 Medical (eight) Branch hours as needed for Abdominal pain for up to 5 days. Immunizations Ordered Filled Immunization Date Status Comments [facility] Immunization Name Name [facility] 2012-11-20 Completed University of 00:00:00 [facility] 2012-11-20 Completed [facility] 00:[facility]00 [facility] [place] [facility] Completed [facility] 00:00:[facility] [place] [facility] 2012-11-20 Completed University of 00:00:00 [facility] TDAP 2012-11-20 Completed University of 00:00:00 [facility] TDAP 2012-11-20 Completed University of 00:00:00 [facility] TDAP 2012-11-20 Completed University of 00:00:00 [facility] [place] [facility] 2012-[facility]-20 Completed University of 00:00:00 [facility] TDAP 2012-11-20 Completed University of 00:00:00 [facility] TDAP 2012-11-20 Completed University of 00:00:00 [facility] TDAP 2012-11-20 Completed University of 00:00:00 [facility] TDAP 2012-11-20 Completed University of 00:00:00 [facility] TDAP 2012-11-20 Completed University of 00:00:00 [facility] Branch TDAP 2012-11-20 Completed University of 00:00:00 [facility] TDAP 2012-11-20 Completed University of 00:00:00 [facility] TDAP 2012-11-20 Completed University of 00:00:00 [facility] TDAP 2012-11-20 Completed University of 00:00:00 [facility] TDAP 2012-11-20 Completed University of 00:00:00 [facility] TDAP 2012-11-20 Completed University of 00:00:00 [facility] TDAP 2012-11-20 Completed University of 00:00:00 [facility] TDAP 2012-11-20 Completed University of 00:00:00 [facility] TDAP 2012-11-20 Completed University of 00:00:00 [facility] DTAP 2002-02-27 Completed University of 00:00:00 [facility] Polio (IPV/OPV) 2002-02-27 Completed Universit y of 00:00:00 [facility] MMR 2002-02-27 Completed University of 00:00:00 [facility] Pneumococcal 7 2002-02-27 Completed University of Conjugate, PCV7 00:00:00 [place] [facility] (Prevnar7) Branch DTAP 2002-02-27 Completed University of 00:00:00 [facility] MMR 2002-02-27 Completed University of 00:00:00 [facility] Pneumococcal 7 2002-02-27 Completed University of Conjugate, PCV7 00:00:00 [place] [facility] (Prevnar7) Branch Polio (IPV/OPV) 2002-02-27 Completed Universit y of 00:00:00 [facility] DTAP 2002-02-27 Completed University of 00:00:00 [facility] Polio (IPV/OPV) 2002-02-27 Completed Universit y of 00:00:00 [facility] MMR 2002-02-27 Completed University of 00:00:00 [facility] Pneumococcal 7 2002-02-27 Completed University of Conjugate, PCV7 00:00:00 [place] [facility] ical (Prevnar7) Branch DTAP 2002-02-27 Completed University of 00:00:00 [facility] MMR 2002-02-27 Completed University of 00:00:00 [facility] Pneumococcal 7 2002-02-27 Completed University of Conjugate, PCV7 00:00:00 [place] [facility] (Prevnar7) Branch Polio (IPV/OPV) 2002-02-27 Completed Universit y of 00:00:00 [facility] DTAP 2002-02-27 Completed University of 00:00:00 [facility] Polio (IPV/OPV) 2002-02-27 Completed Universit y of 00:00:00 [facility] MMR 2002-02-27 Completed University of 00:00:00 [facility] Pneumococcal 7 2002-02-27 Completed University of Conjugate, PCV7 00:00:00 [place] [facility] ical (Prevnar7) Branch DTAP 2002-02-27 Completed University of 00:00:00 [facility] MMR 2002-02-27 Completed University of 00:00:00 [facility] Pneumococcal 7 2002-02-27 Completed University of Conjugate, PCV7 00:00:00 [place] [facility] ical (Prevnar7) Branch Polio (IPV/OPV) 2002-02-27 Completed Universit y of 00:00:00 [facility] DTAP 2002-02-27 Completed University of 00:00:00 [facility] Polio (IPV/OPV) 2002-02-27 Completed Universit y of 00:00:00 [facility] MMR 2002-02-27 Completed University of 00:00:00 [facility] Pneumococcal 7 2002-02-27 Completed University of Conjugate, PCV7 00:00:00 [place] [facility] ical (Prevnar7) Branch DTAP 2002-02-27 Completed University of 00:00:00 [facility] MMR 2002-02-27 Completed University of 00:00:00 [facility] Pneumococcal 7 2002-02-27 Completed University of Conjugate, PCV7 00:00:00 [place] [facility] (Prevnar7) Branch Polio (IPV/OPV) 2002-02-27 Completed Universit y of 00:00:00 [facility] DTAP 2002-02-27 Completed University of 00:00:00 [facility] Polio (IPV/OPV) 2002-02-27 Completed Universit y of 00:00:00 [facility] Branch MMR 2002-02-27 Completed University of 00:00:00 [facility] Pneumococcal 7 2002-02-27 Completed University of Conjugate, PCV7 00:00:00 [place] [facility] (Prevnar7) Branch DTAP 2002-02-27 Completed University of 00:00:00 [facility] MMR 2002-02-27 Completed University of 00:00:00 [facility] Pneumococcal 7 2002-02-27 Completed University of Conjugate, PCV7 00:00:00 [place] [facility] (Prevnar7) Branch Polio (IPV/OPV) 2002-02-27 Completed Universit y of 00:00:00 [facility] Vital Signs Vital Name Observation Time Observation Value Comments Source Systolic blood 2022-09-05 20:16:00 116 mm[Hg] Univer sity of pressure [facility] Diastolic blood 2022-09-05 20:16:00 78 mm[Hg] Unive rsity of [facility] Heart rate 2022-09-05 20:16:00 75 /min Universi ty [facility] Body temperature 2022-09-05 20:16:[facility] 2022-09-05 20:16:00 18 /min [facility] Body height 2022-09-05 20:16:00 154.9 cm [facility] Body weight 2022-09-05 20:16:00 52.617 kg [facility] BMI 2022-09-05 20:16:00 21.92 kg/m2 [facility] Systolic blood 2022-08-16 21:29:00 117 mm[Hg] Univer sity of pressure [facility] Diastolic blood 2022-08-16 21:29:00 78 mm[Hg] Unive rsity of [facility] Heart rate 2022-08-16 21:29:00 84 /min Universi ty [facility] Body temperature 2022-08-16 21:29:00 [facility].94 [facility] [facility] rate 2022-08-16 21:29:00 18 /[facility] height 2022-08-16 21:29:00 154.9 cm Universi ty of [place] [facility] Body weight 2022-08-16 21:29:00 55.475 kg Universi ty of [place] [facility] BMI 2022-08-16 21:29:00 23.11 kg/m2 Universi ty of [place] [facility] Systolic blood 2022-08-12 20:22:00 115 mm[Hg] Univer sity of pressure [place] [facility] Diastolic blood 2022-08-12 20:22:00 78 mm[Hg] Unive rsity of pressure [place] [facility] Heart rate 2022-08-12 20:22:00 67 /min Universi ty of [facility] Branch Body temperature 2022-08-12 20:22:00 36.78 [place] Univ ersity of [facility] Branch Body height 2022-08-12 20:22:00 154.9 cm Universi ty of [place] [facility] Body weight 2022-08-12 20:22:00 54.976 kg Universi ty of [place] [facility] BMI 2022-08-12 20:22:00 22.90 kg/m2 Universi ty of [place] [facility] Systolic blood 2022-08-11 23:55:00 114 mm[Hg] Univer sity of [facility] Branch Diastolic blood 2022-08-11 23:55:00 69 mm[Hg] Unive rsity of pressure [place] [facility] [place] Heart rate 2022-08-11 23:55:00 67 /min Universi ty of [facility] Oxygen saturation in 2022-08-11 23:55:00 100 /min [facility] Arterial blood by [facility] Pulse oximetry Branch Respiratory rate 2022-08-11 23:35:00 13 /min Univ ersity of [facility] Body temperature 2022-08-11 23:04:00 36.39 [place] Univ ersity of [facility] Branch Body height 2022-08-11 14:29:00 154.9 cm Universi ty of [place] [facility] Body weight 2022-08-11 14:29:00 53.615 kg Universi ty of [place] [facility] BMI 2022-08-11 14:29:00 22.33 kg/m2 Universi ty of [facility] Branch Systolic blood 2022-08-11 23:05:00 107 mm[Hg] Univer sity of pressure [place] [facility] Diastolic blood 2022-08-11 23:05:00 65 mm[Hg] Unive rsity of pressure [place] [facility] Heart rate 2022-08-11 23:05:00 88 /min Universi ty of [place] [facility] Oxygen saturation in 2022-08-11 23:05:00 96 /min University of Arterial blood by [facility] Pulse oximetry Branch Body temperature 2022-08-11 23:04:00 36.39 [place] Univ ersity of [place] [facility] Respiratory rate 2022-08-11 21:27:00 16 /min Univ ersity of [place] [facility] Body height 2022-08-11 14:29:00 154.9 cm Universi ty of [place] [facility] Body weight 2022-08-11 14:29:00 53.615 kg Universi ty of [place] [facility] BMI 2022-08-11 14:29:00 22.33 kg/m2 Universi ty of [place] [facility] Systolic blood 2022-08-08 16:18:00 112 mm[Hg] [facility] [place] [facility] Diastolic blood 2022-08-08 16:18:00 74 mm[Hg] [facility] [place] [facility] Heart rate 2022-08-08 16:18:00 76 /min [facility] [place] [facility] Body temperature 2022-08-08 16:18:00 36.67 Blanka [facility] [place] [facility] Respiratory rate 2022-08-08 16:18:00 16 /min [facility] [place] [facility] Body height 2022-08-08 16:18:00 154.9 cm [facility] Body weight 2022-08-08 16:18:00 54.205 kg [facility] BMI 2022-08-08 16:18:00 22.58 kg/m2 [facility] Oxygen saturation in 2022-08-08 16:18:00 98 /min University of Arterial blood by [facility] Pulse oximetry Branch Systolic blood 2021-10-28 20:56:00 113 mm[Hg] [facility] Diastolic blood 2021-10-28 20:56:00 75 mm[Hg] [facility]ive [facility] Heart rate 2021-10-28 20:56:00 92 /min [facility] Body temperature 2021-10-28 20:56:00 36.83 Blanka [facility] Respiratory rate 2021-10-28 20:56:00 18 /min [facility] Body height 2021-10-28 20:56:00 154.9 cm [facility] Body weight 2021-10-28 20:56:00 74.39 kg [facility] BMI 2021-10-28 20:56:00 30.99 kg/m2 [facility] Heart rate 2021-10-15 02:00:00 74 /min [facility] Oxygen saturation in 2021-10-15 02:00:00 99 /min University of Arterial blood by [place] [employer] juany Pulse oximetry Branch Systolic blood 2021-10-15 01:15:00 111 mm[Hg] [facility] Diastolic blood 2021-10-15 01:15:00 65 mm[Hg] [facility] Body temperature 2021-10-15 01:15:00 36.78 Blanka [facility] Respiratory rate 2021-10-15 01:15:00 18 /min [facility] Body weight 2021-10-15 00:49:00 68.04 kg [facility] Systolic blood 2021-01-29 15:30:00 119 mm[Hg] [facility] Diastolic blood 2021-01-29 15:30:00 81 mm[Hg] [facility] Heart rate 2021-01-29 15:30:00 65 /min [facility] Respiratory rate 2021-01-29 15:30:00 17 /min [facility] Oxygen saturation in 2021-01-29 15:30:00 98 /min [facility] of Arterial blood by [place] [employer] juany Pulse oximetry Branch Body temperature 2021-01-29 14:10:00 37.06 Blanka [facility] Body weight 2021-01-29 14:10:00 68.04 kg [facility] Height Measured 2022-07-28 14:31:00 63.00 inches Body Temperature 2022-07-28 14:31:00 98.50 degrees Heart Rate 2022-07-28 14:31:00 77.00 /min Respiratory Rate 2022-07-28 14:31:00 BP Systolic 2022-07-28 14:31:00 106 mm[Hg] BP Diastolic 2022-07-28 14:31:00 74 mm[Hg] Weight Measured 2022-07-28 14:31:00 122.60 pounds Procedures Procedure Date / Time Performing Clinician Source Performed EXTERNAL PROVIDER RECORDS 2022-08-15 05:01:00 Doctor Unassigned, [facility] Lindrith [facility] US PELVIS LIMITED 2022-08-11 22:51:00 Adum, Lisset Longoria [facility] DILATION AND CURETTAGE 2022-08-11 21:47:00 Adum, Lisset Longoria [facility] COVID-19 (ID NOW RAPID 2022-08-11 20:13:00 Juany Burk [facility] TESTING) Medical Branch COVID-19 (ID NOW RAPID 2022-08-11 20:13:00 Juany Burk [facility] TESTING) Medical Branch LAB ONLY COVID 2022-08-11 20:13:00 Juany Burk [facility] INTERPRETATION [facility] US FIRST 2022-08-11 17:58:08 Kia Dailey Kimmy [facility] TRIMESTER LESS THAN 14 Medical B ranch WEEKS WITH TRANSVAGINAL US FIRST 2022-08-11 17:58:08 Kia Dailey Kimmy [facility] TRIMESTER LESS THAN 14 Medical B ranch WEEKS WITH TRANSVAGINAL ABORH CONFIRMATION (LAB 2022-08-11 16:12:00 Kia Dailey Kimmy [facility] ONLY) Medical Branch ABORH CONFIRMATION (LAB 2022-08-11 16:12:00 Kia Dailey Kimmy [facility] ONLY) Medical Branch HB ABO GROUPING 2022-08-11 14:48:00 Kia Dailey [facility] HB ABO GROUPING 2022-08-11 14:48:00 Kia Dailey [facility] LIPASE 2022-08-11 14:42:00 Kia Daileyge [facility] MAGNESIUM 2022-08-11 14:42:00 Ashlie, [facility] COMP. METABOLIC PANEL 2022-08-11 14:42:00 Kia Dailey [facility] ([id number]) [facility] TOTAL BETA HCG ASSAY 2022-08-11 14:42:00 Juany Burk [facility] CBC WITH DIFF 2022-08-11 14:42:00 Ashlie, K [facility] URINALYSIS 2022-08-11 14:42:00 Juany Burk [facility] LIPASE 2022-08-11 14:42:00 Kia Dailey Kimmy [facility] MAGNESIUM 2022-08-11 14:42:00 Ashlie [facility] COMP. METABOLIC PANEL 2022-08-11 14:42:00 Kia Dailey [facility] ([id number]) [facility] TOTAL BETA HCG ASSAY 2022-08-11 14:42:00 Juany Burk [facility] CBC WITH DIFF 2022-08-11 14:42:00 Ashlie [facility] URINALYSIS 2022-08-11 14:42:00 Juany Burk [facility] CONSENT/REFUSAL FOR 2022-08-11 14:23:47 Doctor Heather [facility] DIAGNOSIS AND TREATMENT Lindrith [facility] CONSENT/REFUSAL FOR 2022-08-11 14:23:47 Doctor Unaluz [facility] FIRST 2022-08-09 19:12:00 Arlyn Garber [facility] TRIMESTER LESS THAN 14 Medical B ranch WEEKS WITH TRANSVAGINAL POCT TEST 2022-08-08 00:00:00 Arlyn Garber [facility] DSU PRE-OP 2021-10-28 06:01:00 Doctor Heather [facility] Name [facility] POCT URINALYSIS W/O 2021-10-28 00:00:00 Lisset Calhoun [facility] SPECIFIC GRAVITY [facility] CONSENT/REFUSAL FOR 2021-10-15 00:42:20 Doctor Heather, [facility] DIAGNOSIS AND TREATMENT [place] [facility] [place] POCT TEST 2021-01-29 16:14:00 Singer José Miguel [facility] URINALYSIS 2021-01-29 16:11:00 Singer [facility] COMP. METABOLIC PANEL 2021-01-29 14:24:00 José Miguel [facility] ([id number]) [facility] CBC WITH DIFF 2021-01-29 14:24:00 [facility] o f [facility] NOTICE OF PRIVACY 2021-01-29 13:58:25 Doctor Unassjessica, [facility] Lindrith [facility] NOTICE OF PRIVACY 2021-01-29 13:58:11 Doctor Unassjessica, [facility] Lind[place]ith [facility] Plan of Care Planned Activity Planned Date Details Comments Source Goal Plan of Care Note [code = 46223-0] Goal Plan of Care Note [code = 29384-4] Goal Plan of Care Note [code = 49922-3] Goal Plan of Care Note [code = 18016-3] Goal Plan of Care Note [code = 80215-5] Goal Plan of Care Note [code = 22182-5] Goal Plan of Care Note [code = 94840-6] Encounters Start End Encounter Admission Attending Care Care Encounter Source Date/Time Date/Time Type Type Clinicians Facility Department ID 2023-04-24 2023-04-24 Outpatient MAYI SEE [id number] Wai 15:32:18 15:32:18 [id number] F Danny 2023-04-20 2023-04-20 Outpatient MAYI SEE [id number] Wai 17:05:18 17:05:18 [id number] F Danny 2023-03-06 2023-03-06 Outpatient R ARLYN GARBER [facility] B [id number] Univers 13:30:00 13:30:00 ARLYN GARBER [facility] 2022-09-05 2022-09-05 Outpatient R ARLYN GARBER [facility] B [id number] Univers 15:00:00 15:40:27 CONCHITAARLYN ALEGRIA [facility] 2022-09-05 2022-09-05 Office Nidamaria de jesus [facility] 1.2.840.114 [id number] Univers 15:00:00 15:40:27 Visit Arlyn CROWLEY 350.1.13.10 it y [place] [id number] [facility] [address] [place] 2022-09-03 2022-09-03 Nurse Arlen Madden 1.2.840.114 [id number] Univers 00:00:00 00:00:00 Triage KAYLEE 350.1.13.10 it y of [facility] 4.2.7.2.686 Oscar as [id number] [place] [address] Branch 2022-08-31 2022-08-31 Data Collector Barrie, Adc Lab Main [facility] 1.2.8 40.114 [id number] Univers 12:45:00 13:00:00 Visit Jcarlos Arlyn LIN[place]N 350.1.13. 10 ity [facility] [place] [id number] Dc dical [address] 2022-08-31 2022-08-31 Outpatient R JCARLOS ARLYN [facility] B [id number] Univers 12:45:00 12:45:00 NIDAARLYN CARVALHO [facility] 2022-08-31 2022-08-31 Case Nidamaria de jesus [facility] 1.2.840.114 [id number] Univers 00:00:00 00:00:00 Management Arlyn CROWLEY 350.1.13.10 it[place] [id number] [address] 2022-08-16 2022-08-16 Outpatient R GABRIELLEDONITA ARLYN [facility] B [id number] Univers 16:30:00 16:59:16 NIDAARLYN CARVALHO [facility] 2022-08-16 2022-08-16 Office Jcarlos [facility] 1.2.840.114 [id number] Univers 16:30:00 16:59:16 Visit Arlyn CROWLEY 350.1.13.10 it y [place] [id number] [facility] [address] [place] 2022-08-15 2022-08-15 Outpatient R [facility] [id number] Univers 14:00:00 14:00:00 ity of [facility] 2022-08-15 2022-08-15 Orders Doctor DAVID 1.2.840.114 [id number] Univers 00:00:00 00:00:00 Only Unassigned, KAYLEE 350.1.13.10 ity of Lindr[place] [facility] 4.2.7.2.686 Oscar as [id number] [facility] 009 Branch 2022-08-13 2022-08-13 Nurse DAVID Acevedo 1.2.840.114 [id number] Univers 00:00:00 00:00:00 Triage Mitchell PAGE 350.1.13.10 ity of [facility] 4.2.7.2.686 Oscar as [id number] [facility] 019 Branch 2022-08-12 2022-08-12 [facility] B [id number] Univers 15:15:00 15:59:51 [facility] 2022-08-12 2022-08-12 Routine [facility] HOPKINS 1.2.840.114 [id number] Univers 15:15:00 15:59:51 Arlyn CROWLEY 350.1.13.10 i ty of Visit [place] [id number] [address] 2022-08-11 2022-08-11 Outpatient X LJ, [facility] ARAVIND [id number] Univers 09:31:00 19:05:00 LISSET chow [facility] 2022-08-11 2022-08-11 Emergency Kia Dailey [facility] 1.2.840. 114 [id number] Univers 09:31:00 19:05:00 Lisset Calhoun 350.1.13.10 ity of [place] [id number] [facility] 071 Branch 2022-08-11 2022-08-11 Surgery Adum, [facility] 1.2.840.114 [id number] Univers 16:45:00 18:06:00 Lisset LINCOLN 350.1.13.10 ity of [facility] 4.2.7.2.[place] [id number] [facility] 020 Branch 2022-08-11 2022-08-11 [facility]est[facility] 1.2.840.114 [id number] Univers 17:03:00 18:00:00 Event Roger Orantes WILLIEBHAKTI 350.1.13.10 ity of [facility] 4.2.7.2.[place] [id number] [facility] 020 Branch 2022-08-11 2022-08-11 Telephone [facility] 1.2.840.11 [id number] Univers 00:00:00 00:00:00 Arlyn CROWLEY 350.1.13.10 it y of [place] [facility] [id number] [facility] CLINIC 134 Branch 2022-08-10 2022-08-10 Emergency EM Lorenzo Mcmahan [facility] LA00 [id number] [facility] 07:03:00 11:45:00 28 [facility] 2022-08-09 2022-08-09 Outpatient R ARLYN GARBER [facility] B [id number] Univers 13:30:00 23:59:00 ARLYN GARBER ity of [facility] 2022-08-09 2022-08-09 [facility] 1.2.840.114 [id number] Univers 13:30:00 23:59:00 Encounter Arlyn LINCOLN 350.1.13.10 ity of [facility] 4.2.7.2.[place] [id number] [facility] 806 Branch 2022-08-09 2022-08-09 Case [facility] 1.2.840.114 [id number] Univers 00:00:00 00:00:00 Management Arlyn CROWLEY 350.1.13.10 ity of [facility] 4.2.7.2.686 [facility] [id number] [address] 2022-08-09 2022-08-09 Telephone Jcarlos [facility] 1.2.840.11 [id number] Univers 00:00:00 00:00:00 Arlyn CROWLEY 350.1.13.10 it y of PEDIATRIC 4.2.7.2.686 [place] [facility] [id number] [address] 2022-08-08 2022-08-08 Outpatient R JCARLOS ARLYN [facility] B [id number] Univers 11:00:00 11:37:42 JCARLOS ARLYN [facility] 2022-08-08 2022-08-08 Initial [facility] 1.2.840.114 [id number] [facility] 11:00:00 11:37:42 Arlyn CROWLEY 350.1.13.10 i ty of Visit WOMEN'S 4.2.7.2.686 [facility] [id number] [address] 2022-08-05 2022-08-05 Outpatient R JCARLOS ARLYN [facility] B [id number] Univers 09:30:00 09:30:00 JCARLOS ARLYN shashi [facility] 2022-07-28 2022-07-28 Outpatient [id number] 00:00:00 00:00:00 Visit [id number] 2021-11-25 2021-11-25 Outpatient GUANAKITO TEJEDA [facility] [id number] Univers 16:00:00 [facility] 2021-11-11 2021-11-11 Outpatient GUANAKITO TEJEDA [facility] [id number] Univers 15:45:00 15:45:00 [facility] 2021-11-03 2021-11-03 [facility] [id number] Univers 16:40:00 16:40:00 ALEX ity [facility] 2021-10-28 2021-10-28 Initial Guanakito Fox [facility] 1.2.840.114 [id number] Univers 14:39:23 16:29:30 Lj, Lisset Swati [place] 350.1.13.10 ity of Visit [place] 4.2.7.2.686 [facility] [id number] Dc dical [address] 2021-10-28 2021-10-28 Outpatient R LJ [facility] [id number] Univers 14:30:00 16:29:30 LISSET shashi [facility] 2021-10-28 2021-10-28 Orders Doctor DAVID 1.2.840.114 [id number] Univers 00:00:00 00:00:00 Only Unassigned, KAYLEE 350.1.13.10 ity of [place] [facility] 4.2.7.2.686 Oscar [id number] [address] 2021-10-14 2021-10-14 Outpatient X GUANAKITO FOX [facility] ARAVIND [id number] Univers 18:50:00 20:22:00 itshashi [facility] 2021-10-14 2021-10-14 Emergency Guanakito Fox [facility] 1.2.840.114 [id number] Univers 18:50:00 20:22:00 Kev LIN[place]N 350.1.13.10 i ty of [place] 4.2.7.2.686 [facility] [id number] [address] 2021-01-29 2021-01-29 Emergency [facility] 1.2.064.926 [id number] Univers 08:04:00 11:39:00 José Miguel [place] 350.1.13.10 i ty of Rena [place] 4.2.7.2.686 [facility] [id number] [address] 2021-01-29 2021-01-29 Emergency [facility] [id number] Univers 08:04:00 08:04:00 JOSÉ MIGUEL shashi [facility] Results Test Description Test Time Test Comments Results Result Comments Source ABORH Confirmation (Lab Only) 2022-08-11 17:32:45 Test Item Value Reference Range Interpretation Comme nts ABO & RH (test code = 20) O Positive Pe rformed at [facility] Laboratory Services - [facility] Blood [place] [place] [id number] Free: [phone] A No. [id number] [facility] Confirmation (Lab Only)2022-08-11 17:32:45 Test Item Value Reference Range Interpretation Comments ABO & RH (test code O Positive Performe d at [facility] = 20) Laboratory Serv [facility] [place], [place] [address]Toll Free: [phone] A No. [id number] [facility] (QUANTITATIVE)2022-08-11 16:07:11 Test Item Value Reference Range Interpretation Comments BETA HCG (test See_Comment [Automated m essage] code = The system [employer] [id number]) generated this result transmit blayne reference range : Non- fe male and male patien ts: <5 mIU/mL. The reference range was not used to interpret this result as normal/abnormal . TRUNG (test code Gestational Age ? ? = TRUNG) ?Range (mIU/mL) 1-10 ?Weeks ?60-43978083-60 Weeks ?44187-93711517-07 Weeks ?3866-55111405-23 Weeks ?9435-947753 Biotin has been reported to cause a negative bias, interpret results relative to patient's use of biotin. [facility] ([facility])2022-08-11 16:07:11 Test Item Value Reference Range Interpretation Comments BETA HCG (test See_Comment [Automated m essage] code = The system [employer] 2295498948) generated this result transmit blayne reference range : Non- fe male and male patien ts: <5 mIU/mL. The reference range was not used to interpret this result as normal/abnormal . TRUNG (test code Gestational Age ? ? = TRUNG) ?Range (mIU/mL) 1-10 ?Weeks ?86-33336945-88 Weeks ?30424-69198857-24 Weeks ?7848-21325376-18 Weeks ?7302-657456 Biotin has been reported to cause a negative bias, interpret results relative to patient's use of biotin. [facility] and Screen - ONCE [id number] 15:46:54 Test Item Value Reference Range Interpretation Comments ABO & RH (test code O Positive Performe d at [facility] = 20) Laboratory [facility] [address] [place] [address] Free: [phone] A No. [id number] IAT (test code = Negative Performed a t [facility] 1185) Laboratory [facility] Blood [address] [place], [place] [address]Toll Free: [phone] A No. [id number] [facility] and Screen - ONCE [id number] 15:46:54 Test Item Value Reference Range Interpretation Comments ABO & RH (test code O Positive Performe d at [facility] = 20) Laboratory [facility] [address] [place], [place] [address]Toll Free: [phone] A No. [id number] IAT (test code = Negative Performed a t [facility] 1185) Laboratory [facility] [address] [place], [place] [address]Toll Free: [phone] A No. [id number] [facility]. METABOLIC PANEL ([id number])2022-08-11 15:22:15 Test Item Value Reference Range Interpretation Comments NA (test code = 138 mmol/L 135-145 6246110562) K (test code = 3.8 mmol/L 3.5-5 0574052218) CL (test code = 104 mmol/L 98-108 4568194255) CO2 TOTAL (test code = 23 mmol/L 23-31 6394056848) AGAP (test code = 2-16 7936421040) BUN (test code = 11 mg/dL 7-23 3793600620) GLUCOSE (test code = 109 mg/dL 70-110 2479773700) CREATININE (test code = 0.62 mg/dL 0.5-1.04 9740569506) TOTAL BILI (test code = 1.0 mg/dL 0.1-1.2 8103798307) CALCIUM (test code = 9.6 mg/dL 8.6-10.6 6971725059) T PROTEIN (test code = 6.7 g/dL 6.3-8.2 1239903009) ALBUMIN (test code = 4.4 g/dL 3.5-5 5618341565) ALK PHOS (test code = 37 U/L 34-122 2322550470) ALTv (test code = 80 U/L 5-35 H 1742-6) AST(SGOT) (test code = 98 U/L 13-40 H 3624786980) eGFR (test code = mL/min/1.73m2 6004751555) TRUNG (test code = TRUNG) Association of [...] tests). Lab Interpretation Abnormal (test code = 07540-7) [facility]2022-09-22 15:22:15 Test Item Value Reference Range Interpretation Comments MAGNESIUM (test code = 5805591416) 2.0 mg/dL 1.7-2.4 Lab Interpretation (test code = Normal 10724-9) [facility] METABOLIC PANEL ([id number])2022-08-11 15:22:15 Test Item Value Reference Range Interpretation Comments NA (test code = 138 mmol/L 135-145 1573036259) K (test code = 3.8 mmol/L 3.5-5 9358782541) CL (test code = 104 mmol/L 98-108 4434478220) CO2 TOTAL (test code = 23 mmol/L 23-31 8883114554) AGAP (test code = 2-16 7150549225) BUN (test code = 11 mg/dL 7-23 6142900285) GLUCOSE (test code = 109 mg/dL 70-110 7210554095) CREATININE (test code = 0.62 mg/dL 0.5-1.04 5562893203) TOTAL BILI (test code = 1.0 mg/dL 0.1-1.3 8697662304) CALCIUM (test code = 9.6 mg/dL 8.6-10.6 2312418156) T PROTEIN (test code = 6.7 g/dL 6.3-8.2 1511579455) ALBUMIN (test code = 4.4 g/dL 3.5-5 2059217367) ALK PHOS (test code = 37 U/L 34-122 6156802598) ALTv (test code = 80 U/L 5-35 H 1742-6) AST(SGOT) (test code = 98 U/L 13-40 H 1601073102) eGFR (test code = mL/min/1.73m2 4698519958) TRUNG (test code = TRUNG) Association of [...] Stage three ? + --+ --+ ------+| ?-29 ?| ?Stage four ? | ? Stage [...] tests). Lab Interpretation Abnormal (test code = 59371-9) [facility]2022-09-22 15:22:15 Test Item Value Reference Range Interpretation Comments MAGNESIUM (test code = 0390433770) 2.0 mg/dL 1.7-2.4 Lab Interpretation (test code = Normal 26297-3) [facility]2022-09-22 15:21:55 Test Item Value Reference Range Interpretation Comments LIPASE (test code = 5624212136) 51 U/L 0-220 Lab Interpretation (test code = Normal 40258-9) [facility]2022-09-22 15:21:55 Test Item Value Reference Range Interpretation Comments LIPASE (test code = 1127522384) 51 U/L 0-220 Lab Interpretation (test code = Normal 65558-6) [facility] WITH [id number] 15:04:09 Test Item Value Reference Range Interpretation Comments WBC (test code = See_Comment H [Automated 6690-2) message] The sy stem which generated this result transmitted reference range : 4.30 - 11.10 10*3/?L. The reference range was not used to interpret this result as normal/abnormal . RBC (test code = See_Comment [Automated 789-8) message] The sy stem which generated this result transmitted reference range : 3.93 - 5.25 10*6/?L. The reference range was not used to interpret this result as normal/abnormal . HGB (test code = 12.3 g/dL 11.6-15 718-7) HCT (test code = 35.0 % 35.7-45.2 L 4544-3) MCV (test code = 86.8 fL 80.6-95.5 787-2) MCH (test code = 30.5 pg 25.9-32.8 785-6) MCHC (test code = 35.1 g/dL 31.6-35.1 786-4) RDW-SD (test code = 42.2 fL 39-49.9 18704-6) RDW-CV (test code = 13.5 % 12-15.5 788-0) PLT (test code = See_Comment H [Automated 777-3) message] The sy stem which generated this result transmitted reference range : 166 - 358 10*3/ ?L. The reference r brenna was not used to interpret this result as normal/abnormal . MPV (test code = 10.1 fL 9.5-12.9 23694-6) NRBC/100 WBC (test See_Comment [Automat ed code = 3221402160) message] The system which generated this result transmitted reference range : 0.0 - 10.0 /100 WBCs. The refer ence range was not u sed to interpret th is result as normal/abnormal . NRBC x10^3 (test code See_Comment [Auto mated = 8654412967) message] The s ystem which generated this result transmitted reference range : 10*3/?L. The reference range was not used to interpret this result as normal/abnormal . GRAN MAT (NEUT) % 77.4 % (test code = 770-8) IMM GRAN % (test code 0.40 % = 3925620144) LYMPH % (test code = 14.9 % 736-9) MONO % (test code = 6.8 % 5905-5) EOS % (test code = 0.3 % 713-8) BASO % (test code = 0.2 % 706-2) GRAN MAT x10^3(ANC) 8.79 10*3/uL 1.88-7.09 H (test code = 8057230636) IMM GRAN x10^3 (test 0.04 10*3/uL 0-0.06 code = 0165098924) LYMPH x10^3 (test code 1.69 10*3/uL 1.32-3.29 = 731-0) MONO x10^3 (test code 0.77 10*3/uL 0.33-0.92 = 742-7) EOS x10^3 (test code = 0.03 10*3/uL 0.03-0.39 711-2) BASO x10^3 (test code 0.01-0.07 = 704-7) Lab Interpretation Abnormal (test code = 86653-4) [facility] WITH [id number] 15:04:09 Test Item Value Reference Range Interpretation Comments WBC (test code = See_Comment H [Automated 7790-2) message] The sy stem which generated this result transmitted reference range : 4.30 - 11.10 10*3/?L. The reference range was not used to interpret this result as normal/abnormal . RBC (test code = See_Comment [Automated 209-8) message] The sy stem which generated this result transmitted reference range : 3.93 - 5.25 10*6/?L. The reference range was not used to interpret this result as normal/abnormal . HGB (test code = 12.3 g/dL 11.6-15 718-7) HCT (test code = 35.0 % 35.7-45.2 L 4544-3) MCV (test code = 86.8 fL 80.6-95.5 787-2) MCH (test code = 30.5 pg 25.9-32.8 785-6) MCHC (test code = 35.1 g/dL 31.6-35.1 786-4) RDW-SD (test code = 42.2 fL 39-49.9 51073-6) RDW-CV (test code = 13.5 % 12-15.5 788-0) PLT (test code = See_Comment H [Automated 777-3) message] The sy stem which generated this result transmitted reference range : 166 - 358 10*3/ ?L. The reference r brenna was not used to interpret this result as normal/abnormal . MPV (test code = 10.1 fL 9.5-12.9 14926-8) NRBC/100 WBC (test See_Comment [Automat ed code = 5186014198) message] The system which generated this result transmitted reference range : 0.0 - 10.0 /100 WBCs. The refer ence range was not u sed to interpret th is result as normal/abnormal . NRBC x10^3 (test code See_Comment [Auto mated = 4931108877) message] The s ystem which generated this result transmitted reference range : 10*3/?L. The reference range was not used to interpret this result as normal/abnormal . GRAN MAT (NEUT) % 77.4 % (test code = 770-8) IMM GRAN % (test code 0.40 % = 2711657505) LYMPH % (test code = 14.9 % 736-9) MONO % (test code = 6.8 % 5905-5) EOS % (test code = 0.3 % 713-8) BASO % (test code = 0.2 % 706-2) GRAN MAT x10^3(ANC) 8.79 10*3/uL 1.88-7.09 H (test code = 7714958354) IMM GRAN x10^3 (test 0.04 10*3/uL 0-0.06 code = 2762916068) LYMPH x10^3 (test code 1.69 10*3/uL 1.32-3.29 = 731-0) MONO x10^3 (test code 0.77 10*3/uL 0.33-0.92 = 742-7) EOS x10^3 (test code = 0.03 10*3/uL 0.03-0.39 711-2) BASO x10^3 (test code 0.01-0.07 = 704-7) Lab Interpretation Abnormal (test code = 13895-4) [facility]- DUP AB/PEL/SC [id number] 09:21:00 [facility] 1995 Sex: F Name: AISLINN BURK [facility] : 1995 Age/S: 26 / F [address] [address] [place] Unit #: [id number]: Yolie Smith [address] Phys: MarjLorenzo Acct: [id number] Dis Date: Status: REG ER PHONE #: [phone] Exam Date: 08/10/2022 0908 FAX #: Reason: PREG, BLEEDING EXAMS: CPT: [id number] DUP AB/PEL /SC COMP 91647 History: pain/bleeding Comparison: None at this time Location: [facility] Transabdominal and endovaginal sonography of the pelvis was performed. A single intrauterine is identified. The crown-rump length measures approximately 1.68 cm. No heartbeat is identified. There is a subchorionic hemorrhage, measuring 4.0 x 3.5 x 6.2 cm in dimensions. The right ovary measures 2.7 x 1.6x 2.0 cm in size. The left ovary measures 3.6 x 1.6 x 2.3 cm in size. No free fluid is identified. No adnexal masses are seen. Spectral Doppler and color flow Doppler sonography of the ovaries was performed. There is arterial blood flow identified within both ovaries. IMPRESSION: A single intrauterine is identified. However, no heartbeat can be identified. According to ultrasound size criteria, the estimated gestational age would be approximately 8 weeks 1 day. These findings are suspicious for intrauterine demise. There is a subchorionic hemorrhage. Electronically Signedby Latasha Talavera on 08/10/2022 at 0921 Reported and signed by: Milton Talavera M.D. PAGE 1 Signed Report (CONTINUED) [facility] 1995 Age/S: 26 / F [address] [address] Unit #: [id number] Loc: [place] [address] Phys: MarjLorenzo FOFANA Acct: [id number] Dis Date: Status: REG ER PHONE #: [phone] Exam Date: 08/10/2022 0908 FAX #: Reason: PREG, BLEEDING EXAMS: CPT: [id number] DUP AB/PEL/SC COMP 39658 (Continued) CC: Zoie Donald MD; Lorenzo Mcmahan DO Technologist: Hallie Garcia [facility] Date/Time: 08/10/2022 (920) t.ROR.PMT PAGE 2 Signed Report Name: AILSINN BURK [facility] : 1995 Age/S: 26 / F [address] [address] [place] Unit #: [id number] Loc: [place] [address] Phys: Lorenzo Mcmahan DO Acct: [id number] Dis Date: Status: REG ER PHONE #: [phone] Exam Date: 08/10/2022 0908 FAX #: Reason: PREG, BLEEDING EXAMS: CPT: [id number] DUP AB /PEL/SC COMP 24266 (Continued) Orig Print D/T: S: 08/10/2022 (924) Probe: PAGE 3 Signed Report- US PREG 1ST [id number] 09:21:00 [facility] 1995 Sex: F Name: AISLINN BURK : 1995 Age/S: 26 / F [address] [address] [place] Unit #: [id number]: Yolie Smith [address] Phys: Lorenzo Mcmahan DO Acct: [id number] Dis Date: Status: REG ER PHONE #: [phone] Exam Date: 08/10/2022 09 FAX #: Reason: pain/bleeding EXAMS: CPT: [id number] US PREG 1ST TRIMTR 99052 History: pain/bleeding Comparison: None at this time Location: [facility] Transabdominal and endovaginal sonography of the pelvis was performed. A single intrauterine is identified. The crown-rump length measures approximately 1.68 cm. No heartbeat is identified. There is a subchorionic hemorrhage, measuring 4.0 x 3.5 x 6.2 cm in dimensions. The right ovary measures 2.7 x 1.6 x2.0 cm in size. The left ovary measures 3.6 x 1.6 x 2.3 cm in size. No free fluid is identified. No adnexal masses are seen. Spectral Doppler and color flow Doppler sonography of the ovaries was performed. There is arterial blood flow identified within both ovaries. IMPRESSION: A single intrauterine pr egnancy is identified. However, no heartbeat can be identified. According to ultrasound size criteria, the estimated gestational age would be approximately 8 weeks 1 day. These findings are suspicious for intrauterine demise. There is a subchorionic hemorrhage. at 0921 Reported and signed by: Milton Talavera M.D. PAGE 1 Signed Report (CONTINUED) Name: AISLINN BURK : 1995 Age/S: 26 / F [address] [address] Unit #: [id number] Loc: Yolie Smith [address] Phys: Lorenzo Mcmahan DO Acct: [id number] Dis Date: Status: REG ER PHONE #: [phone] Exam Date: 08/10/2022906 FAX #: Reason: pain/bleedingEXAMS: CPT: [id number] US PREG 1ST TRIMTR 19015 (Continued) CC: Lorenzo Mcmahan DO Technologist: Hallie Garcia Trnscb Date/Time: 08/10/2022 (920) IfrahPMT PAGE 2 Signed Report Name: AISLINN BURK [place] : 1995 Age/S: 26 / F [address] [address] [place] Unit #: [id number] Loc: Yolie Smith [address] Phys: Lorenzo Mcmahan DO Acct: [id number] Dis Date: Status: REG ER PHONE #: [phone] Exam Date: 08/10/2022906 FAX #: Reason: pain/bleeding EXAMS: CPT: [id number] US PREG 1ST TRIMTR 87015 (Continued) Orig Print D/T: S: 08/10/2022 (924) Probe: PAGE 3 Signed Report- US TRANSVAGINAL NON [id number] 09:21:00[facility] 1995 Sex: F Name: AISLINN BURK [place] : 1995 Age/S: 26 / F [address] [address] Unit #: [id number]: SarahYolie [address] Phys: Lorenzo Mcmahan DO Acct: [id number] Dis Date: Status: REG ER PHONE #: [phone] Exam Date: 08/10/2022 09 FAX #: Reason: pain/bleeding EXAMS: CPT: [id number] [place] [address] History: pain/bleeding Comparison: None at this time Location: [facility] Transabdominal and endovaginal sonography of the pelvis was performed. A single intrauterine is identified.The crown-rump length measures approximately 1.68 cm. No heartbeat is identified. There is a subchorionic hemorrhage, measuring 4.0 x 3.5 x 6.2 cm in dimensions. The right ovary measures 2.7 x 1.6 x 2.0 cm in size. The left ovary measures 3.6 x 1.6 x 2.3 cm in size. No free fluid is identified. No adnexal masses are seen. Spectral Doppler and color flow Doppler sonography of the ovaries was performed. There is arterial blood flow identified within both ovaries. IMPRESSION: A single intrauterine is identified. However, no heartbeat can be identified. According to ultrasound size criteria, the estimated gestational age would be approximately 8 weeks 1 day. These findings are suspicious for intrauterine demise. There is a subchorionic hemorrhage. Electronically Signedby Latasha Talavera on 08/10/2022 at 0921 Reported and signed by: Mliton Talavera M.D. PAGE 1 Signed Report (CONTINUED) Name: AISLINN BURK : 1995 Age/S: 26 / F [address] [facility] Unit #: [id number] Loc: [place] [address] Phys: Lorenzo Mcmahan DO Acct: [id number] Dis Date: Status: REG ER PHONE #: [phone] Exam Date: 08/10/2022 0908 FAX #: Reason: pain/bleeding EXAMS: CPT: [id number] [place] [address] (Continued) CC: Lorenzo Mcmahan DO Technologist: Hallie Garcia [facility] Date/Time: 08/10/2022 (09) Veronica PAGE 2 Signed Report Name: AISLINN BURK [place] : 1995 Age/S: 26 / F [address] [address] [place] Unit #: [id number] Loc: [place] [address] Phys: Lorenzo Mcmahan DO Acct: [id number] Dis Date: Status: REG ER PHONE #: [phone] Exam Date: 08/10/2022 09 FAX #: Reason: pain/bleeding EXAMS: CPT: [id number] [place] [address] (Continued) Orig Print D/T: S: 08/10/2022 (0925) Probe: [id number] PAGE 3 Signed ReportHCG [id number] 08:39:00 Test Item Value Reference Range Interpretation Comments HCG SERUM (test 50952 mi-IU/ML 0-6 H 0 - 6 NOT > 6 code = HCG) SUGGESTIVE OF E KATIE RISES TWO FOLD EVERY 2 DA YS; SUGGEST RECONFI RMING AFTER 2 DAYS. 150,000-200,[address] TRIMESTER 10,00 0 - 50,000 2ND & 3R D TRIMESTER UA RFLX MICR CULT IF [id number] 08:26:00 Test Item Value Reference Range Interpretation Comments UA COLOR (test code = STRAW discript YEL/STRAW COLU) UA APPEARANCE (test code TURBID discript CLEAR A = APPU) UA GLUCOSE DIPSTICK (test NEGATIVE mg/dL NEG code = DGLUU) UA BILIRUBIN DIPSTICK NEGATIVE mg/dL NEG (test code = BILU) UA KETONE DIPSTICK (test 3+ mg/dL NEG A code = KETU) UA SPECIFIC GRAVITY (test >=1.030 SG 1.005-1.030 A code = SGU) UA BLOOD DIPSTICK (test 3+ mg/DL NEG A code = VU) UA PH DIPSTICK (test code 6.0 pH UNITS 5.0-7.0 = RIP) UA PROTEIN DIPSTICK (test 1+ mg/dL NEG A code = PROU) UA UROBILINIOGEN DIPSTICK 0.2 mg/dL <2.0 (test code = URO) UA NITRITE DIPSTICK (test NEGATIVE SCREEN NEG code = VIVEK) UA LEUKOCYTE ESTERASE NEGATIVE Leuk/mcL NEGATIVE DIPSTICK (test code = LEUU) UA CULTURE NEEDED? (test NO, WBC<10 Criteria Culture CHK code = UACULT) UA WBC (test code = WBCU) 0-1 #WBC/HPF 0-3 UA RBC (test code = RBCU) 0-1 #RBC/HPF 0-3 UA SQUAMOUS CELLS (test TRACE /HPF NONE code = SQU) UA AMORPHOUS SEDIMENT 1+ NONE SEEN A (test code = AMORU) Indication for culture: RiskForSepsis-no oth srcBASIC METABOLIC [id number] 08:10:00 Test Item Value Reference Range Interpretation Comments SODIUM (test code = NA) 137 mmol/L 134-147 N POTASSIUM (test code = 4.1 mmol/L 3.4-5.0 N K) CHLORIDE (test code = 106 mmol/L 100-108 N CL) CARBON DIOXIDE (test 21 mmol/L 21-32 N code = CO2) ANION GAP (test code = 10.0 GAP calc 4.0-15.0 N GAP) GLUCOSE (test code = 183 MG/DL 70-110 H GLU) BLOOD UREA NITROGEN 13 MG/DL 7-18 N (test code = BUN) GLOMERULAR FILTRATION >=60 max estimate >60 RATE (test code = GFR) estGFR CREATININE (test code = 0.8 MG/DL 0.6-1.0 N CREAT) CALCIUM (test code = CA) 10.0 MG/DL 8.5-10.1 N HEPATIC FUNCTION [id number] 08:10:00 Test Item Value Reference Range Interpretation Comments TOTAL PROTEIN (test code = PROT) 7.6 G/DL 6.4-8.2 N ALBUMIN (test code = ALB) 3.9 G/DL 3.4-5.0 N BILIRUBIN TOTAL (test code = BILT) 0.70 MG/DL 0.2-1.2 N BILIRUBIN DIRECT (test code = 0.20 MG/DL 0.00-0.30 N BILD) BILIRUBIN INDIRECT (test code = 0.50 MG/DL 0.2-1.2 N BILIND) SGOT/AST (test code = AST) 12 Unit/L 15-37 L SGPT/ALT (test code = ALT) 37 Unit/L 12-78 N ALKALINE PHOSPHATASE TOTAL (test 34 Unit/L 45-117 L code = ALKP) [id number] 08:10:00 Test Item Value Reference Range Interpretation Comments LIPASE (test code = LIP) 29 Unit/L 114-286 L CBC W/AUTO [id number] 07:59:00 Test Item Value Reference Range Interpretation Comments WHITE BLOOD CELL (test code = 16.4 K/mm3 3.5-11.0 H WBC) RED BLOOD CELL (test code = 4.26 M/mm3 4.70-6.10 L RBC) HEMOGLOBIN (test code = HGB) 12.7 G/DL 10.4-14.9 N HEMATOCRIT (test code = HCT) 36.9 % 31.5-44.1 N MEAN CELL VOLUME (test code = 86.6 Fl 84.5-98.6 N MCV) MEAN CELL HGB (test code = MCH) 29.8 pg 27.0-34.2 N MEAN CELL HGB CONCETRATION 34.4 G/DL 31.5-34.0 H (test code = MCHC) RED CELL DISTRIBUTION WIDTH 13.5 SD 11.5-14.5 N (test code = RDW) PLATELET COUNT (test code = 352 K/mm3 150-450 N PLT) MEAN PLATELET VOLUME (test code 10.10 fL 7.0-10.5 N = MPV) NEUTROPHIL % (test code = NT%) 94.6 % 40-76 H IMMATURE GRANULOCYTE % (test 0.4 % 0.0-5.0 N code = IG%) LYMPHOCYTE % (test code = LY%) 3.9 % 20.5-51.1 L MONOCYTE % (test code = MO%) 1.0 % 1.7-9.3 L EOSINOPHIL % (test code = EO%) 0.0 % 0.0-6.0 N BASOPHIL % (test code = BA%) 0.1 % 0.0-2.0 N NUCLEATED RBC % (test code = 0.0 /100WBC% 0.0-1.0 N NRBC%) NEUTROPHIL # (test code = NT#) 15.5 K/mm3 1.8-7.6 H IMMATURE GRANULOCYTE # (test 0.06 x10 3/uL 0.00-0.03 H code = IG#) LYMPHOCYTE # (test code = LY#) 0.6 K/mm3 0.6-3.2 N MONOCYTE # (test code = MO#) 0.2 K/mm3 0.3-1.1 L EOSINOPHIL # (test code = EO#) 0.0 K/mm3 0.0-0.4 N BASOPHIL # (test code = BA#) 0.0 K/mm3 0.0-0.1 N NUCLEATED RBC # (test code = 0.0 K/mm3 0.0-0.1 N NRBC#) MANUAL DIFF REQUIRED (test code NO DIFF/SCN CRITERIA = MDIFF) POCT [id number] 16:30:00 Test Item Value Reference Range Interpretation Comments POCT PREG (test code = 1605) Positive On board controls acceptable with C Yes Line (test code = 3574) POCT PREG LOT # (test code = 3575) POCT PREG TEST DATE (test code = 3576) [facility], [id number] 09:51:52SPECIMEN NUMBER: [id number] CULTURE, URINE SPECIMEN NUMBER: [id number] SPECIMEN COMMENT: URINE SOURCE:URINE REPORT STATUS: FINAL FINAL REPORT: 07/30/2022 10-50,000 CFU/ML UROGENITAL YANNI PRESENT NO COMMON PATHOGENSCBC W/AUTO DIFF WITH [id number] 08:02:01 Test Item Value Reference Range Interpretation Comments WBC (test code = 7.5 K/UL 3.5-11.0 1001) RBC (test code = 4.04 M/UL 3.80-5.40 1002) HEMOGLOBIN (test code 12.1 G/DL 11.5-15.5 = 1003) HEMATOCRIT (test code 36.7 % 34.0-45.0 = 1004) MCV (test code = 90.8 fL 80.0-99.0 1005) MCH (test code = 30.0 PG 25.0-33.0 1006) MCHC (test code = 33.0 G/DL 31.0-36.0 1007) RDW (test code = 13.7 % 11.5-15.0 1038) NEUTROPHILS (test 63.5 % code = 1008) LYMPHOCYTES (test 26.2 % code = 1010) MONOCYTES (test code 7.8 % = 1011) EOSINOPHILS (test 2.0 % code = 1012) BASOPHILS (test code 0.1 % = 1013) IMMATURE GRANULOCYTES 0.4 % (test code = 1036) NUCLEATED RBCS (test 0.0 /100 WBC'S See_Comment [Aut omated code = 1065) message] The sy stem which generated this result transmitted reference range : 0.0. The refere nce range was not u sed to interpret th is result as normal/abnormal . PLATELET COUNT (test 251 K/UL 130-400 code = 1015) ABSOLUTE NEUTROPHILS 4.78 K/UL 1.50-7.50 (test code = 1066) ABSOLUTE LYMPHOCYTES 1.97 K/UL 1.00-4.00 (test code = 1067) ABSOLUTE MONOCYTES 0.59 K/UL 0.20-1.00 (test code = 1068) ABSOLUTE EOSINOPHILS 0.15 K/UL 0.00-0.50 (test code = 1040) ABSOLUTE BASOPHILS 0.01 K/UL 0.00-0.20 (test code = 1069) ABS IMMATURE 0.03 K/UL 0.00-0.10 GRANULOCYTES (test code = 1020) ABS NUCLEATED RBCS 0.00 K/UL 0.00-0.11 (test code = 39641) HCG, [id number] 06:09:47 Test Item Value Reference Range Interpretation Comments HCG, QUANTITATIVE 97292 MIU/ML SEE BELOW E XPECTED (test code = 2506) VALUES FO R HCG GST.AGE UNITS RANGE GST. AGE UNITS RANGE3 WEEKS AL U/ML 6-71 10 WEEKS M IU/ML 46,509-186,9774 WEEKS MIU/ML 10-750 1 2 WEEKS MIU/ML 27,832-210,6125 WEEKS MIU/ML 217-7,13 8 14 WEEKS MIU/ML 13,950-62,5306 WEEKS MIU/ML 158-31,7 95 15 WEEKS MIU/ML 12,039-70,9717 WEEKS MIU/ML 3,697-16 3,563 16 WEEKS MIU/ML 9,040-56,4518 W EEKS MIU/ML 32,065-1 49,571 17 WEEKS MIU/ML 8,175-55,8689 W EEKS MIU/ML 63,803-1 51,410 18 WEEKS MIU/ML 8,099-58,176MAL ES and NON- FE MALES . . . . . . . . MIU/ML 1-4PSZU-KCPVYDX REEMA FEMALES . . . . . . . . . . . . MIU/M L <=7 UNLESS OTHERWIS E INDICATED, ALL TESTING PERFORM ED AT[facility], I [place]. [address] [place] [address] [facility] DIRECTOR: Latasha QUIROGAIA NUMBER [id number] CAP ACCREDITATION N O. [id number] POCT URINALYSIS W/O SPECIFIC [id number] 21:04:00 Test Item Value Reference Range Interpretation Comments POCT PH U (test code = 3254) N/A 5-8 POCT U LEUK EST (test code = N/A Negative - Negative 3263) POCT U NIT (test code = 3262) N/A Negative - Negative POCT U PROT (test code = 3259) Negative Negative - Negative POCT U GLU (test code = 3256) Negative Negative - Negative POCT U KETONE (test code = 3258) N/A Negative - Negative POCT U BLD (test code = 3257) N/A Negative - Negative [facility]INAL[facility]IS2021-03-12 16:50:35 Test Item Value Reference Range Interpretation Comments APPEARANCE (test code = Hazy Clear A 8588754578) COLOR (test code = Yellow Yellow 7027258660) PH (test code = 4.8-8.0 5913100684) SP GRAVITY (test code = 1.003-1.030 4325217191) GLU U QUAL (test code = Normal Normal 1997355439) BLOOD (test code = Negative Negative 7566436775) KETONES (test code = 20 mg/dL Negative A 2118522722) PROTEIN (test code = Negative Negative 2887-8) UROBILIN (test code = 2.0 mg/dL Normal A 4145056788) BILIRUBIN (test code = Negative Negative 5379855392) NITRITE (test code = Negative Negative 7726125084) LEUK KASHMIR (test code = 25/uL Negative A 4615403144) RBC/HPF (test code = See_Comment [Autom ated message] 5981069643) The system [employer] generated this result transmit blayne reference range : 0 - 3 HPF. The refe rence range was not u sed to interpret th is result as normal/abnormal . WBC/HPF (test code = See_Comment H [Autom ated message] 3987248492) The system [employer] generated this result transmit blayne reference range : 0 - 5 HPF. The refe rence range was not u sed to interpret th is result as normal/abnormal . BACTERIA (test code = Moderate Negative A 4782135841) MUCOUS (test code = Marked Negative LPF A 0833681028) SQ EPITH (test code = HPF 6703740468) Lab Interpretation (test Abnormal code = 71528-0) [facility] [id number] 16:14:00 Test Item Value Reference Range Interpretation Comments POCT PREG (test code = 1605) negative On board controls acceptable with present C Line (test code = 3574) POCT PREG LOT # (test code = 3575) [id number] POCT PREG TEST DATE (test 2022-09-19 code = 3576) Lab Interpretation (test code = Normal 43628-7) [facility]. METABOLIC PANEL (80774)2021-01-29 15:11:52 Test Item Value Reference Range Interpretation Comments NA (test code = 143 mmol/L 135-145 6957873225) K (test code = 3.2 mmol/L 3.5-5.0 L 2290694990) CL (test code = 102 mmol/L 98-108 3549761288) CO2 TOTAL (test code = 30 mmol/L 23-31 1871763930) AGAP (test code = 2-16 7598404215) BUN (test code = 15 mg/dL 7-23 1366152522) GLUCOSE (test code = 106 mg/dL 70-110 7177688502) CREATININE (test code = 0.81 mg/dL 0.50-1.04 8300701788) TOTAL BILI (test code = 0.9 mg/dL 0.1-1.4 9130181974) CALCIUM (test code = 9.6 mg/dL 8.6-10.6 9695534720) T PROTEIN (test code = 7.4 g/dL 6.3-8.2 3224720963) ALBUMIN (test code = 4.7 g/dL 3.5-5.0 0444324874) ALK PHOS (test code = 37 U/L 34-122 1074753041) ALTv (test code = 39 U/L 5-35 H 1742-6) AST(SGOT) (test code = 75 U/L 13-40 H 4575951386) eGFR Calculation mL/min/1.73m2 (Non-) (test code = 8273766617) eGFR Calculation mL/min/1.73m2 () (test code = 0777709363) TRUNG (test code = TRUNG) Association of [...] tests). Lab Interpretation Abnormal (test code = 30146-1) [facility] WITH [id number] 14:36:28 Test Item Value Reference Range Interpretation Comments WBC (test code = See_Comment [Automated message] 6690-2) The system [employer] generated this result transmitted ref erence range: 4.30 - 1 1.10 10*3/?L. The re ference range was not u sed to interpret this result as normal/abnor mal. RBC (test code = See_Comment [Automated message] 789-8) The system [employer] generated this result transmitted ref erence range: [...] RDW-SD (test code 39.2 fL 39.0-49.9 = 62624-1) RDW-CV (test code 12.9 % 12.0-15.5 = 788-0) PLT (test code = See_Comment [Automated message] 777-3) The system [employer] generated this result transmitted ref erence range: 166 - 35 8 10*3/?L. The re ference range was not u sed to interpret this result as normal/abnor mal. MPV (test code = 10.5 fL 9.5-12.9 48457-8) NRBC/100 WBC (test See_Comment [Automat ed message] code = 4052825803) The syste m which generated this result transmitted ref erence range: 0.0 - 10 .0 /100 WBCs. The refer ence range was not u sed to interpret this result as normal/abnor mal. NRBC x10^3 (test <0.01 See_Comment [Automated message] code = 8150165646) The syste m which generated this result transmitted ref erence range: 10*3/?L. The reference range was not used to interpr et this result as normal/abnormal . GRAN MAT (NEUT) % 71.8 % (test code = 770-8) IMM GRAN % (test 0.40 % code = 4560074525) LYMPH % (test code 18.5 % = 736-9) MONO % (test code 7.8 % = 5905-5) EOS % (test code = 1.2 % 713-8) BASO % (test code 0.3 % = 706-2) GRAN MAT 6.81 10*3/uL 1.88-7.09 x10^3(ANC) (test code = 7646415439) IMM GRAN x10^3 0.04 10*3/uL 0.00-0.06 (test code = 9524403237) LYMPH x10^3 (test 1.76 10*3/uL 1.32-3.29 code = 731-0) MONO x10^3 (test 0.74 10*3/uL 0.33-0.92 code = 742-7) EOS x10^3 (test 0.11 10*3/uL 0.03-0.39 code = 711-2) BASO x10^3 (test 0.03 10*3/uL 0.01-0.07 code = 704-7) [facility] ([facility] by RT-PCR (HIGH RISK) 2021-01-26 00:00:00 Test Item Value Reference Range Interpretation Comments SARS-CoV-2 INTERPRETATION NEGATIVE (test code = 52281) SOURCE (test code = 19497) NASOPHARYNGEAL SARS-CoV-2 (COVID-19) by RT-PCR (HIGH RISK)2021-01-26 00:00:00 Test Item Value Reference Range Interpretation Comments SARS-CoV-2 INTERPRETATION NEGATIVE (test code = 35754) SOURCE (test code = 39373) NASOPHARYNGEAL Notes Date/Time Note Provider Source 2022-08-10 07:26:00-00:00 [facility] ([facility] EMERGENCY PROVIDER REPORT REPORT#:[id number] REPORT STATUS: Signed DATE:08/10/22 TIME:725 PATIENT: AISLINN BURK UNIT #: [id number] ROOM/BED: : 97 AGE: 26 SEX: F PCP PHYS: Yelitza Donald MD SERVICE AUTHOR: Lorenzo Mcmahan DO * ALL edits or amendments must be made on the el ectronic/computer document * HPI-Abd Pain F Under 40 General Confirmed Patient Yes Initial Greet Date/Time 08/10/22 0707 Presentation Chief Complaint Abdominal pain, Nausea, Pelvic p ain, , 1st trimester, # weeks (6 weeks. LMP June 09) Hx Obtained From Patient, Family (mother) Sudden in Onset? No Onset Occurred Weeks ago (2) Symptom Duration Since onset Progression since Onset Gradually worsening Caused by No trauma by history Location Abdomen lower Quality Painful Radiation Does not radiate. Migration/Movement None Severity: Onset Moderate Severity: Current Moderate Associated with Reports: Nausea, Vaginal ble eding, Vomiting. Denies: Anorexia, Back pain, Chest pain, Chills, Constipation, Diarrhea, Dysuria, Fever, Hematemesis, Hematochezia, Hematuria, Melena, Shortness of breath, Urinary frequency, Urinary retention, Urinary tract symptoms, Vaginal discharge. Exacerbated by Nothing Relieved by Nothing Free Text HPI Notes Free Text HPI Notes -states she is currentl y with twins and one of them is nonviable. States she was told that cole f of her uterus was filled with hemorrhage. Has had abdominal pain, vaginal bleeding, nausea and vom iting for the past 2 weeks. 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 Risk-Abd Pain F Under 40 )( Ectopic Risk factors reviewed Review of Systems ROS Statements Complete sys rev neg except as marked. Focused Review of Systems Constitutional Denies: Chills, Fever, Lethargy. Respiratory Denies: Cough, non-productive, Cough, productive , Shortness of breath. Cardiovascular Denies: Chest pain, Syncope. GI Reports: Abdominal pain, Nausea, Vomiting. Denie s: Diarrhea. Female Reports: , Vaginal b leeding - abnl. Denies: Dysuria, Flank pain, Pelvic pain. Musculoskeletal Denies: Back pain, Extremity pain. Past Medical History - Adult Stated Complaint NAUSEA, VOMITING, BLEEDING 2 WE EKS, HX MISC Allergies Coded Allergies: No Known Allergies (08/10/22) Pt reports no significant: Past medical history Past Surgical History: Reports: Cholecystectomy. Physical Exam Vital Signs Vital Signs First Documented: Result Date Time Pulse Ox 100 08/10 07 B/P 122/73 08/10 720 B/P Mean 89 08/10 07 O2 Delivery Room air 08/10 720 Temp 97.6 08/10 720 Pulse 55 08/10 07 Resp 17 08/10 720 Last Documented: Result Date Time Pulse Ox 99 08/10 1145 B/P 108/62 08/10 1145 B/P Mean 77 08/10 1145 O2 Delivery Room air 08/10 114 Temp 98.0 08/10 114 Pulse 95 08/10 1145 Resp 18 08/10 1145 Review of Vital Signs Reviewed Focused PE General/Const General/Const Awake, Alert, Well appearing MS Head Head Normocephalic Eyes Eyes PERRL Ears/Nose/Throat Ears/Nose/Throat Airway patent, Mucous membrane s moist, Pharynx NL Resp/Chest Respiratory/Chest Breath sounds NL, Breath soun ds = bilat, No respiratory distress, No rales, No rhonchi, No wheezing Cardiovascular Cardiovascular Heart rate NL, Regular rhythm, H eart sounds NL, Peripheral circulation NL Abdomen/GI Abdomen/GI Soft, Non-tender, McBurney's non-ten darwin, No guarding, No rebound, BS normoactive, No distention, No hernia, No pal pable mass MS Back Back Inspection NL, Non-tender, No CVA tenderne ss Skin Skin Color NL, Warm, Dry, Turgor NL Genitourinary General Diesel Service Apprentice present Female Genitourinary Atraumatic, External genit chet NL, No uterine mass, No lesions or rash Text/Dict Notes Cervix open. No obstruction. Very small amount of blood present in the vagina. No other products of conception reviewed. Neurologic Neurologic Oriented X3, Speech NL, No motor def icits, No sensory deficits Additional PE MS Upper Extrem Upper Extremity/MS Atraumatic, Inspection NL MS Wrist/Hand Wrist/Hand Atraumatic, Inspection NL Interpretation Diagnostics Lab Results Interpretation Results Laboratory Tests 08/10/22730: [Embedded Image Not Available] Laboratory Tests: 08/10 731 Chemistry Sodium (134 - 147 mmol/L) 137 Potassium (3.4 - 5.0 mmol/L) 4.1 Chloride (100 - 108 mmol/L) 106 Carbon Dioxide (21 - 32 mmol/L) 21 Anion Gap (4.0 - 15.0 GAP calc) 10.0 BUN (7 - 18 MG/DL) 13 Creatinine (0.6 - 1.0 MG/DL) 0.8 Glomerular Filtr Rate (>60 estGFR) >=60 max est imate Glucose (70 - 110 MG/DL) 183 H Calcium (8.5 - 10.1 MG/DL) 10.0 Total Bilirubin (0.2 - 1.2 MG/DL) 0.70 Direct Bilirubin (0.00 - 0.30 MG/DL) 0.20 Indirect Bilirubin (0.2 - 1.2 MG/DL) 0.50 AST (15 - 37 Unit/L) 12 L ALT (12 - 78 Unit/L) 37 Total Alk Phosphatase (45 - 117 Unit/L) 34 L Total Protein (6.4 - 8.2 G/DL) 7.6 Albumin (3.4 - 5.0 G/DL) 3.9 Lipase (114 - 286 Unit/L) 29 L Hematology WBC (3.5 - 11.0 K/mm3) 16.4 H RBC (4.70 - 6.10 M/mm3) 4.26 L Hgb (10.4 - 14.9 G/DL) 12.7 Hct (31.5 - 44.1 %) 36.9 MCV (84.5 - 98.6 Fl) 86.6 MCH (27.0 - 34.2 pg) 29.8 MCHC (31.5 - 34.0 G/DL) 34.4 H RDW (11.5 - 14.5 SD) 13.5 Plt Count (150 - 450 K/mm3) 352 MPV (7.0 - 10.5 fL) 10.10 Neut % (Auto) (40 - 76 %) 94.6 H Lymph % (Auto) (20.5 - 51.1 %) 3.9 L [place] % (Auto) (1.7 - 9.3 %) 1.0 L Eos % (Auto) (0.0 - 6.0 %) 0.0 Baso % (Auto) (0.0 - 2.0 %) 0.1 Neut # (Auto) (1.8 - 7.6 K/mm3) 15.5 H Lymph # (Auto) (0.6 - 3.2 K/mm3) 0.6 [place] # (Auto) (0.3 - 1.1 K/mm3) 0.2 L Eos # (Auto) (0.0 - 0.4 K/mm3) 0.0 Baso # (Auto) (0.0 - 0.1 K/mm3) 0.0 Abs Immat Gran (auto) (0.00 - 0.03 x10 3/uL) 0. 06 H Add Manual Diff (CRITERIA DIFF/SCN) NO Immature Gran % (0.0 - 5.0 %) 0.4 Nucleated RBC % (0.0 - 1.0 /100WBC%) 0.0 Miscellaneous Maternal Serum HCG (0 - 6 mi-IU/ML) 82302 H Urines Urine Color (YEL/STRAW discript) STRAW Urine Appearance (CLEAR discript) TURBID H Urine pH (5.0 - 7.0 pH UNITS) 6.0 Ur Specific [place] (1.005 - 1.030 SG) >=1.030 H Urine Protein (NEG mg/dL) 1+ H Urine Glucose (UA) (NEG mg/dL) NEGATIVE Urine Ketones (NEG mg/dL) 3+ H Urine Blood (NEG mg/DL) 3+ H Urine Nitrite (NEG SCREEN) NEGATIVE Urine Bilirubin (NEG mg/dL) NEGATIVE Urine Urobilinogen (<2.0 mg/dL) 0.2 Ur Leukocyte Esterase (NEGATIVE Leuk/mcL) NEGAT FREDIS Urine RBC (0 - 3 #RBC/HPF) 0-1 Urine WBC (0 - 3 #WBC/HPF) 0-1 Ur Squamous Epith Cells (NONE /HPF) TRACE Amorphous Sediment (NONE SEEN) 1+ H Urine Culture Screen (Culture CHK Criteria) NO, WBC<10 Recent Impressions: ULTRASOUND - US TRANSVAGINAL NON OB 08/10 800 Report Impression - Status: SIGNED Entered: 08/10/2022924 IMPRESSION: A single intrauterine is identified. H owever, no heartbeat can be identified. According to ultra sound size criteria, the estimated gestational age would be approxima tely 8 weeks 1 day. These findings are suspicious for intrauterine f etal demise. There is a subchorionic hemorrhage. Impression By: Veronica Talavera M.D . ULTRASOUND - US PREG 1ST TRIMTR 08/10 800 Report Impression - Status: SIGNED Entered: 08/10/2022924 IMPRESSION: A single intrauterine is identified. H owever, no heartbeat can be identified. According to ultras ound size criteria, the estimated gestational age would be approxima tely 8 weeks 1 day. These findings are suspicious for intrauterine f etal demise. There is a subchorionic hemorrhage. Impression By: Veronica Talavera M.D . ULTRASOUND - DUP AB/PEL/SC COMP 08/10 0849 Report Impression - Status: SIGNED Entered: 08/10/2022 0925 IMPRESSION: A single intrauterine is identified. H owever, no heartbeat can be identified. According to ultras ound size criteria, the estimated gestational age would be approxima tely 8 weeks 1 day. These findings are suspicious for intrauterine f etal demise. There is a subchorionic hemorrhage. Impression By: Veronica Talavera M.D . Re-Evaluation MDM )( Re-Evaluation/Progress #1 Text/Dict Note Patient states that her nausea and pain was resolved after Zofran she was able to sleep however symptoms have since returned. A dditional Zofran ordered. Mother bedside. Discussed test results in detail . Patient now clarifies that she had an ultrasound performed yesterday and wa s told that she might have to pregnancies or that she may just have 1 pregnanc y and a large subchorionic hemorrhage. Patient has follow-up with DYNAMITE PACKING MACHINE OPERATOR. Time of Re-Eval 1005 )( Re-Eval Status Improved Re-Evaluation/Progress #2 Text/Dict Note Pain improved. Nausea improved. Mother bedside. No additional complaints. Patient requesting medicine for anxiety. States she has a history of anxiety and that her miscarriage is exacerbating this. Time of Eval 1130 Re-Eval Status Improved ED Course Medication(s) Ordered Medication(s) Ordered: Gastrointestinal Drugs Sig/Jama Start time Last Medication Dose Route Stop Time Status Admin Ondansetron HCl 4 MG X1ED STA 08/10 1016 DC IV 08/10 1017 1020 Patient Discharge Departure Vital Signs/Condition Vital Signs First Documented: Result Date Time Pulse Ox 100 08/10 07 B/P 122/73 08/10 0720 B/P Mean 89 08/10 07 O2 Delivery Room air 08/10 07 Temp 97.6 08/10 0720 Pulse 55 08/10 0720 Resp 17 08/10 07 Last Documented: Result Date Time Pulse Ox 99 08/10 1145 B/P 108/62 08/10 1145 B/P Mean 77 08/10 1145 O2 Delivery Room air 08/10 1145 Temp 98.0 08/10 1145 Pulse 95 08/10 1145 Resp 18 08/10 1145 All vital signs available at the time of this en try have been reviewed. Clinical Impression Clinical Impression Primary Impression: Spontaneous miscarriage Disposition Decision Discharge )( Discharged to Home Yes )( Time 1137 )( Date 08/10/22 Discharge/Care Plan Counseled Regarding Diagnosi s, Lab results, Imaging studies, Prescriptions, Need for follow-up, When to return to ED (Auto) Prescriptions Current Visit Scripts LORazepam (ATIVAN) 0.5 MG PO Q8H PRN PRN ANXIETY LORazepam (ATIVAN) 0.5 MG PO Q8H PRN PRN ANXIET Y #15 TABS ONDANSETRON ODT (ZOFRAN ODT) 4 MG PO Q6H PRN PRN NAUSEA/VOMITING ONDANSETRON ODT (ZOFRAN ODT) 4 MG PO Q6H PRN CO N NAUSEA/VOMITING #20 TABS Patient Instructions ED Anxiety Reaction, ED Mis carriage, Incomplete, Understanding Miscarriage: Emotions Additional Instructions 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
[2023-07-01] MEDS ORDERED: dexAMETHasone 10 MG/ML VIAL ONE (10:48)
[2023-07-01] MEDS ORDERED: IPRATROPIUM BROM 0.5MG/2.5ML ONE (10:49)
[2023-07-01] MEDS ORDERED: ALBUTEROL 2.5 MG/3 ML NEB SOL ONE ×3 (10:49→17:06)
[2023-07-01] MEDS ORDERED: MAGNESIUM SULFATE 1 gm IVPB 1 GM/100 ML BAG IV ONE (10:50)
[2023-07-01 10:55] LABS: Absolute Lymphocytes (CBC) 1.9 K/uL (0.7-4.9); Hematocrit 41.1 % (36.0-45.0); Lymphocytes % 11.1 % (15.3-44.8); MCV 87.6 fL (80-100); MPV 7.7 fL (7.6-11.3); Platelets 336 thou/uL (152-406); RBC Red Blood Cell Count 4.69 M/uL (3.86-4.86)
[2023-07-01] MEDS ORDERED: ONDANSETRON 4 MG/2 ML VIAL ONE (10:58)
[2023-07-01 11:13] LABS: Magnesium 2.4 mg/dL (1.6-2.4); Potassium 3.7 mEq/L (3.5-5.1); Troponin High Sensitivity 4.9 pg/mL (<58.9)
[2023-07-01] MEDS ORDERED: DIAZEPAM 5 MG TABLET ONE (11:16)
--- NOTE | 2023-07-01 11:32 | RAD REPORT ---
EXAM DESCRIPTION: Cynthia Single View07/01/2023 11:10 am CLINICAL HISTORY: Chest pain;Dyspnea COMPARISON: No comparisons TECHNIQUE: Portable AP view of the chest. FINDINGS: The lungs are clear. No pneumothorax or effusion. The cardiomediastinal contours are unrem arkable. IMPRESSION: No acute cardiopulmonary process.
[2023-07-01 11:45] LABS: Blood Morphology Comment NOT SEEN (NOT SEEN); Platelet Estimate ADEQ
--- NOTE | 2023-07-01 12:29 | RAD REPORT ---
EXAM DESCRIPTION: CT - Chest For Pe Angio - 07/01/2023 11:46 am CLINICAL HISTORY: Chest pain;Dyspnea COMPARISON: Chest Single View dated 07/01/2023 TECHNIQUE: Thin axial CT images of the chest were obtained following administration of 90 mL Isovue 370 IV contrast. Multiplanar reconstructions, and maximum intensity projection reconstructions were g enerated and reviewed. Exam utilizes a protocol for optimal evaluation of pulmonary arterial tree. All CT scans are performed using dose optimization technique as appropriate and may include automated exposure control or mA/KV adjustment according to patient size. FINDINGS: Pulmonary arteries are normal. No emboli or other suspicious finding. No acute or signific ant aorta findings. Subtle scattered central and peripheral geographic ground-glass opacities throughout the lungs. No caceres spicious mass in the lung parenchyma. No pleural thickening or pleural effusion. No pneumothorax. No abnormal mediastinal or hilar masses or lymphadenopathy seen. No chest wall mass or abnormal axill iary lymphadenopathy. IMPRESSION: No evidence of acute central pulmonary emboli. Subtle scattered ground-glass opacity or aeration may suggest early multifocal pneumonitis.
--- NOTE | 2023-07-01 12:51 | EDPHYS ---
Physician Documentation [facility] Name: Cely Clancy Age: 27 yrs Sex: Female : 1995 Arrival Date: 07/01/2023 Time: 10:18 Bed 6 Private MD: ED Physician Fahad Sethi HPI: 07/01 11:07 This 27 yrs old Female presents to ER via EMS with complaints of Shortness Of Breath, kb Chest Pain, Cough. 11:07 The patient has shortness of breath at rest. Onset: The symptoms/episode began/occurred kb last night. Duration: The symptoms are continuous. The patient's shortness of breath has no apparent modifying factors. Associated signs and symptoms: Pertinent positives: chest pain, non-productive cough. Severity of symptoms: At their worst the symptoms were moderate in the emergency department the symptoms are unchanged. The patient has not experienced similar symptoms in the past. The patient has not recently seen a physician. Pt reports shortness of breath and chest pain that started last night and has gotten worse. Reports wheezing this morning as well. VERIFIER: 11:26 LMP N/A - control method jl7 Historical: - Allergies: 10:25 No Known Allergies; bp - Home Meds: 10:25 Adderall Oral for Attention-Deficit Hyperactivity Disorder [Active]; venlafaxine oral bp [Active]; Propranolol Oral [Active]; - PMHx: 10:25 Anxiety; PCOS; Depressive disorder; bp - PSHx: 10:25 section; bp - Immunization history:: Adult Immunizations up to date. - Social history:: Smoking status: Patient denies any tobacco usage or history of. ROS: 11:06 Constitutional: Negative for fever, chills, and weight loss. kb 11:06 Cardiovascular: Positive for chest pain. 11:06 Respiratory: Positive for cough, shortness of breath, wheezing. 11:06 Psych: Positive for anxiety. 11:06 All other systems are negative. Exam: 10:31 Constitutional: This is a well developed, well nourished patient who is awake, alert, kb and in no acute distress. Head/Face: Normocephalic, atraumatic. ENT: Moist Mucous membranes Cardiovascular: Regular rate and rhythm with a normal S1 and S2. No gallops, murmurs, or rubs. No pulse deficits. Abdomen/GI: Soft, non-tender. No distention Skin: Warm, dry with normal turgor. Normal color. MS/ Extremity: Pulses equal, no cyanosis. Neurovascular intact. Full, normal range of motion. Neuro: Awake and alert, GCS 15, oriented to person, place, time, and situation. Moves all extremities. Normal gait. 10:31 ECG was reviewed by the Attending Physician. 10:31 Respiratory: mild respiratory distress is noted, Respirations: labored breathing, Breath sounds: wheezing: inspiratory expiratory that is mild, that is moderate, is heard diffusely. Vital Signs: 10:23 BP 130 / 70; Pulse 110; Resp 24; Temp 98; Pulse Ox 88% on R/A; bp 10:35 BP 127 / 91; Pulse 104; Resp 24; Pulse Ox 98% on 2 lpm NC; bp 11:26 BP 125 / 77; Pulse 91; Resp 15; Pulse Ox 95% ; jl7 12:39 BP 120 / 94; Pulse 99; Resp 15; Pulse Ox 95% ; jl7 14:40 BP 111 / 77; Pulse 80; Resp 17; Pulse Ox 97% ; jl7 16:58 BP 120 / 77; Pulse 96; Resp 20; Pulse Ox 100% ; jl7 17:45 BP 127 / 80; Pulse 99; Resp 18; Pulse Ox 94% ; jl7 17:47 Weight 52.16 kg; jl7 MDM: 10:25 Patient medically screened. kb 11:07 Differential diagnosis: asthma, Bronchitis pneumonia, pulmonary edema, Pulmonary kb Embolism flu, covid. Data reviewed: vital signs, nurses notes. 11:07 Historians other than the Patient: EMS: [facility]. kb 12:46 Antibiotic administration: Rocephin and Zithromax given. Consideration of kb Admission/Observation Patient was admitted/placed on observation. Escalation of care including admission/observation considered. Management of patient was discussed with the following: Hospitalist: Dr Tsai accepts pt for admission . Counseling: I had a detailed discussion with the patient and/or guardian regarding: the historical points, exam findings, and any diagnostic results supporting the discharge/admit diagnosis, lab results, radiology results, the need for further work-up and treatment in the hospital. 07/01 10:27 Order name: Basic Metabolic Panel; Complete Time: 11:16 kb 07/01 10:27 Order name: CBC with Diff; Complete Time: 11:46 kb 07/01 10:27 Order name: D-Dimer; Complete Time: 11:04 kb 07/01 10:27 Order name: Magnesium; Complete Time: 11:16 kb 07/01 10:27 Order name: NT PRO-BNP; Complete Time: 11:16 kb 07/01 10:27 Order name: Troponin HS; Complete Time: 11:16 kb 07/01 11:46 Order name: Manual Differential; Complete Time: 11:46 EDMS 07/01 12:41 Order name: COVID-19 SARS RT PCR; Complete Time: 13:27 kb 07/01 12:42 Order name: Blood Culture Adult (2) kb 07/01 12:42 Order name: Lactate w/ 2H reflex if indic.; Complete Time: 14:03 kb 07/01 15:05 Order name: CBC with Automated Diff EDMS 07/01 15:05 Order name: CBC with Automated Diff EDMS 07/01 15:05 Order name: Comprehensive Metabolic Panel EDMS 07/01 15:05 Order name: Comprehensive Metabolic Panel EDMS 07/01 15:05 Order name: Magnesium EDMS 07/01 15:05 Order name: Magnesium EDMS 07/01 15:05 Order name: NT PRO-BNP EDMS 07/01 15:05 Order name: NT PRO-BNP EDMS 07/01 15:05 Order name: Phosphorus EDMS 07/01 15:05 Order name: Phosphorus EDMS 07/01 10:27 Order name: XRAY Chest (1 view); Complete Time: 11:35 kb 07/01 11:05 Order name: CT Chest For PE Angio; Complete Time: 12:30 kb 07/01 10:27 Order name: EKG; Complete Time: 10:38 kb 07/01 15:05 Order name: Regular EDMS 07/01 10:27 Order name: Cardiac monitoring; Complete Time: 10:34 kb 07/01 10:27 Order name: EKG - Nurse/Tech; Complete Time: 10:33 kb 07/01 10:27 Order name: IV Saline Lock; Complete Time: 10:34 kb 07/01 10:27 Order name: Labs collected and sent; Complete Time: 10:52 kb 07/01 10:27 Order name: O2 Per Protocol; Complete Time: 10:34 kb 07/01 10:27 Order name: O2 Sat Monitoring; Complete Time: 10:34 kb EC:31 Rate is 94 beats/min. Rhythm is regular. QRS [place] is Normal. [place] interval is normal at kb 126 msec. QRS interval is normal at 72 msec. QT interval is normal at 442 msec. Administered Medications: 10:48 Drug: DuoNeb Nebulize (3:1) (2.5 mg - 0.5 mg) 3 ml Route: Nebulizer; jl7 11:24 Follow up: Response: No adverse reaction jl7 10:50 Drug: Magnesium Sulfate IVPB 1 grams Route: IVPB; Infused Over: 1 hrs; Site: left jl7 antecubital; 11:23 Follow up: Response: No adverse reaction; IV Status: Completed infusion jl7 10:51 Drug: Decadron - Dexamethasone IVP 10 mg Route: IVP; Site: left antecubital; jl7 11:24 Follow up: Response: No adverse reaction jl7 10:53 Drug: Ondansetron IVP 4 mg Route: IVP; Site: left antecubital; jl7 11:24 Follow up: Response: No adverse reaction; Nausea is decreased jl7 13:39 Drug: Albuterol Inhalation 2.5 mg Route: Inhalation; jl7 14:22 Follow up: Response: No adverse reaction jl7 16:58 Drug: Albuterol Inhalation 2.5 mg Route: Inhalation; jl7 Disposition: 07/02 07:53 Co-signature as Attending Physician, Fahad Sethi MD I agree with the assessment and kdr plan of care. Disposition Summary: 07/01/23 12:50 Hospitalization Ordered Hospitalization Status: Observation Provider: Nicole Tsai Location: Telemetry/MedSurg (observation) kb Condition: Stable kb Problem: new kb Symptoms: are unchanged kb Bed/Room Type: Standard Room Assignment: 206(07/01/23 16:37) dw Diagnosis - pneumonitis kb - Hypoxia kb Forms: - Medication Reconciliation Form kb - SBAR form kb - Leadership Thank You Letter kb Signatures: Dispatcher [employer] Melanie Mcneal FNP-C FNP-Ckb Woody, Diana, RN RN dw Rittger, Kevin, MD MD kdr Leal, Jahala, RN RN jl7 Obed Mata RN RN bp Corrections: (The following items were deleted from the chart) 07/01 16:37 12:50 kb dw
--- NOTE | 2023-07-01 12:51 | ER ---
Nurse's Notes [facility] Name: Cely Clancy Age: 27 yrs Sex: Female : 1995 Arrival Date: 07/01/2023 Time: 10:18 Bed 6 Private MD: Diagnosis: pneumonitis;Hypoxia Presentation: 07/01 10:23 Chief complaint: EMS states: SOB AND CHEST PAIN AFTER ANXIETY ATTACK, RECENT PULMONARY bp ILLNESS. Coronavirus screen: At this time, the client does not indicate any symptoms associated with coronavirus-19. Ebola Screen: No symptoms or risks identified at this time. Initial Sepsis Screen: Does the patient meet any 2 criteria? HR > 90 bpm. No. Patient's initial sepsis screen is negative. Does the patient have a suspected source of infection? No. Patient's initial sepsis screen is negative. Risk Assessment: Do you want to hurt yourself or someone else? Patient reports no desire to harm self or others. Onset of symptoms is unknown. Care prior to arrival: IV initiated. 20 GA, in the left antecubital area. 10:23 Method Of Arrival: EMS: [facility] bp 10:23 Acuity: TOMÁS 3 bp Triage Assessment: 10:25 General: Appears uncomfortable, Behavior is cooperative, appropriate for age, anxious. bp Pain: Complains of pain in chest. EENT: No deficits noted. Neuro: No deficits noted. Cardiovascular: Rhythm is sinus tachycardia. Respiratory: Reports shortness of breath cough that is Onset: The symptoms/episode began/occurred yesterday, the patient has moderate shortness of breath. GI: No signs and/or symptoms were reported involving the gastrointestinal system. : No signs and/or symptoms were reported regarding the genitourinary system. Derm: No deficits noted. [employer]M [employer] FORMS: 11:26 LMP N/A - control method jl7 Historical: - Allergies: 10:25 No Known Allergies; bp - Home Meds: 10:25 Adderall Oral for Attention-Deficit Hyperactivity Disorder [Active]; venlafaxine oral bp [Active]; Propranolol Oral [Active]; - PMHx: 10:25 Anxiety; PCOS; Depressive disorder; bp - PSHx: 10:25 section; bp - Immunization history:: Adult Immunizations up to date. - Social history:: Smoking status: Patient denies any tobacco usage or history of. Screenin:37 [facility] ED Fall Risk Assessment (Adult) History of falling in the last 3 months, bp including since admission No falls in past 3 months (0 pts). Abuse screen: Denies threats or abuse. Denies injuries from another. Nutritional screening: No deficits noted. Tuberculosis screening: No symptoms or risk factors identified. Assessment: 10:37 General: SEE TRIAGE NOTE. bp 10:40 General: Appears uncomfortable, ill, Behavior is cooperative, anxious. Neuro: Level of jl7 Consciousness is awake, alert, obeys commands, Oriented to person, place, time, situation. Cardiovascular: Heart tones present Patient's skin is warm and dry. Rhythm is. Respiratory: Airway is patent Respiratory effort is even, labored, Respiratory pattern is symmetrical, tachypnea Audible wheezes. Derm: Skin is dry, Skin is pale, Skin temperature is cool. 10:50 Reassessment: Pt actively vomiting, ERP notified, VO for 4 mg Zofran IV. jl7 12:00 Reassessment: Patient appears in no apparent distress at this time. Patient and/or jl7 family updated on plan of care and expected duration. Pain level reassessed. Patient is alert, oriented x 3, equal unlabored respirations, skin warm/dry/pink. Patient states feeling better. Patient states symptoms have improved. 13:35 Reassessment: Pt with audible wheezing, ERP gave VO for 2.5 mg Albuterol x 1. jl7 14:30 Reassessment: Patient appears in no apparent distress at this time. Patient and/or jl7 family updated on plan of care and expected duration. Pain level reassessed. Patient is alert, oriented x 3, equal unlabored respirations, skin warm/dry/pink. Patient states feeling better. Patient states symptoms have improved. 15:30 Reassessment: Patient appears in no apparent distress at this time. No changes from jl7 previously documented assessment. Patient and/or family updated on plan of care and expected duration. Pain level reassessed. Patient is alert, oriented x 3, equal unlabored respirations, skin warm/dry/pink. 16:55 Reassessment: Pt with audible wheezing, ERP gave VO for 2.5 mg Albuterol. jl7 17:45 Reassessment: Patient appears in no apparent distress at this time. No changes from jl7 previously documented assessment. Patient states feeling better. Patient states symptoms have improved. Vital Signs: 10:23 BP 130 / 70; Pulse 110; Resp 24; Temp 98; Pulse Ox 88% on R/A; bp 10:35 BP 127 / 91; Pulse 104; Resp 24; Pulse Ox 98% on 2 lpm NC; bp 11:26 BP 125 / 77; Pulse 91; Resp 15; Pulse Ox 95% ; jl7 12:39 BP 120 / 94; Pulse 99; Resp 15; Pulse Ox 95% ; jl7 14:40 BP 111 / 77; Pulse 80; Resp 17; Pulse Ox 97% ; jl7 16:58 BP 120 / 77; Pulse 96; Resp 20; Pulse Ox 100% ; jl7 17:45 BP 127 / 80; Pulse 99; Resp 18; Pulse Ox 94% ; jl7 17:47 Weight 52.16 kg; jl7 ED Course: 10:23 Patient arrived in ED. bp 10:24 Triage completed. bp 10:25 Melanie Valdes FNP-C is PHCP. kb 10:25 Fahad Sethi MD is Attending Physician. kb 10:34 Felipa Fleming RN is Primary Nurse. jl7 10:34 Arm band placed on. bp 10:37 Patient has correct armband on for positive identification. Bed in low position. Call bp light in reach. Side rails up X2. 10:37 Maintain EMS IV. Dressing intact. Good blood return noted. Site clean \T\ dry. Gauge \T\ bp site: 20 GA LEFT AC. 11:11 XRAY Chest (1 view) In Process Unspecified. EDMS 11:24 Provided Education on: use of call garcia. jl7 11:48 CT Chest For PE Angio In Process Unspecified. EDMS 12:48 Nicole Tsai MD is Hospitalizing Provider. kb 14:10 First set of blood cultures drawn by me. jl7 14:17 No provider procedures requiring assistance completed. Second set of blood cultures jl7 drawn by me. 14:21 Inserted saline lock: 22 gauge in right forearm, using aseptic technique. Blood jl7 collected. 17:45 Patient admitted, IV remains in place. intact, No redness/swelling at site. jl7 Administered Medications: 10:48 Drug: DuoNeb Nebulize (3:1) (2.5 mg - 0.5 mg) 3 ml Route: Nebulizer; jl7 11:24 Follow up: Response: No adverse reaction jl7 10:50 Drug: Magnesium Sulfate IVPB 1 grams Route: IVPB; Infused Over: 1 hrs; Site: left jl7 antecubital; 11:23 Follow up: Response: No adverse reaction; IV Status: Completed infusion jl7 10:51 Drug: Decadron - Dexamethasone IVP 10 mg Route: IVP; Site: left antecubital; jl7 11:24 Follow up: Response: No adverse reaction jl7 10:53 Drug: Ondansetron IVP 4 mg Route: IVP; Site: left antecubital; jl7 11:24 Follow up: Response: No adverse reaction; Nausea is decreased jl7 13:39 Drug: Albuterol Inhalation 2.5 mg Route: Inhalation; jl7 14:22 Follow up: Response: No adverse reaction jl7 16:58 Drug: Albuterol Inhalation 2.5 mg Route: Inhalation; jl7 Medication: 11:24 VIS not applicable for this client. jl7 Outcome: 12:50 Decision to Hospitalize by Provider. kb 17:45 Admitted to Tele accompanied by tech, via wheelchair, room 209, with chart, Report jl7 called to JP De La Rosa 17:45 Condition: stable 17:45 Discharge instructions given to patient, Instructed on the need for admit, Demonstrated understanding of instructions. 17:52 Patient left the ED. jl7 Signatures: Dispatcher [employer] EDMS Melanie Valdes, CHARLIE YIP-Felipa Hall RN RN jl7 Obed Mata, RN RN bp Corrections: (The following items were deleted from the chart) 10:55 10:50 Magnesium Sulfate IVPB 1 grams IVPB in right antecubital over 1 hrs jl7 jl7 10:55 10:51 Decadron - Dexamethasone IVP 10 mg IVP in right forearm jl7 jl7
[2023-07-01] MEDS ORDERED: ACETAMINOPHEN 500 MG TAB PO PRN (15:00)
[2023-07-01] MEDS ORDERED: ONDANSETRON 4 MG/2 ML VIAL IV PRN (15:00)
[2023-07-01] MEDS: NA CHLORIDE 0.9% 1,000 ML IV SCH (18:08)
[2023-07-01] MEDS: Levofloxacin 750mg IV 750 MG/150 ML BAG IV SCH (18:08)
[2023-07-01] MEDS: METHYLPREDNISOLONE 125 MG INJ IV SCH ×2 (18:09→23:53)
[2023-07-01] MEDS ORDERED: LORazepam 2 MG/ML VIAL IV ONE (20:07)
[2023-07-01 20:10] VITALS: BMI 21.7
[2023-07-01] MEDS: BENZONATATE 100 MG CAP PO PRN (20:21)
[2023-07-01] MEDS: ALBUTEROL 2.5 MG/3 ML NEB SOL NEB SCH (20:30)
[2023-07-01] MEDS: IPRATROPIUM BROM 0.5MG/2.5ML NEB SCH (20:30)
[2023-07-01] MEDS: MELATONIN 5 MG TABLET PO PRN (23:51)
[2023-07-02] MEDS: ALBUTEROL 2.5 MG/3 ML NEB SOL NEB SCH ×4 (02:00→21:35)
[2023-07-02] MEDS: IPRATROPIUM BROM 0.5MG/2.5ML NEB SCH ×4 (02:00→21:35)
[2023-07-02 03:03] LABS: Absolute Lymphocytes (CBC) 0.8 K/uL (0.7-4.9); Hematocrit 36.1 % (36.0-45.0); Lymphocytes % 7.9 % (15.3-44.8); MCV 87.9 fL (80-100); MPV 7.8 fL (7.6-11.3); Platelets 336 thou/uL (152-406); RBC Red Blood Cell Count 4.11 M/uL (3.86-4.86)
[2023-07-02 03:24] LABS: Albumin 3.3 g/dL (3.4-5.0); Bilirubin Total 0.4 mg/dL (0.2-1.0); Magnesium 2.2 mg/dL (1.6-2.4); Phosphorus 2.6 mg/dL (2.5-4.9); Potassium 4.2 mEq/L (3.5-5.1); Protein, Total 6.9 g/dL (6.4-8.2)
[2023-07-02 03:27] LABS: Thyroid Stimulating Hormone 0.24 uIU/mL (0.358-3.740)
[2023-07-02] MEDS: METHYLPREDNISOLONE 125 MG INJ IV SCH ×4 (05:10→23:17)
[2023-07-02] MEDS: NA CHLORIDE 0.9% 1,000 ML IV SCH (06:38)
[2023-07-02] MEDS: BENZONATATE 100 MG CAP PO PRN ×2 (07:50→20:26)
[2023-07-02] MEDS ORDERED: LORazepam 2 MG/ML VIAL IV ONE (11:10)
--- NOTE | 2023-07-02 11:28 | RAD REPORT ---
EXAM DESCRIPTION: Cynthia Single View07/02/2023 11:19 am CLINICAL HISTORY: Shortness of breath COMPARISON: July 01, 2023 FINDINGS: Mild bilateral pulmonary opacities unchanged Heart is size IMPRESSION: Stable mild bilateral pulmonary opacities
--- NOTE | 2023-07-02 15:17 | P.HP ---
Certification for Inpatient Patient admitted to: Inpatient With expected LOS: >2 Midnights Patient will require the following post-hospital care: None Practitioner: I am a practitioner with admitting privileges, knowledge of patient current condition, hospital course, and medical plan of care. Services: Services provided to patient in accordance with Admission requirements found in Title 42 Section 412.3 of the Code of Federal Regulations Patient History Date of Service: 07/01/23 Reason for admission: Shortness of breath History of Present Illness: 27-year-old female with history of chronic cough who comes into the hospital with shortness of breath. Patient was given nebs and steroids and antibiotics. Patient has been having a lot of family issues and has been given anxiolytics. She started feeling much better. At this time, patient will be admitted to the hospital for further treatment. She will need outpatient follow-up with pulmonary. Allergies No Known Allergies Allergy (Unverified 07/23/16 03:26) Home Medications: Desvenlafaxine [Desvenlafaxine ER] 100 mg PO BEDTIME 07/01/23 Dextroamphetamine/Amphetamine [Adderall 15 mg Tablet] 15 mg PO DAILY 07/01/23 Diazepam [Valium] 10 mg PO PRN PRN 07/01/23 Gabapentin [Neurontin*] 100 mg PO DAILY 07/01/23 Propranolol [Inderal*] 0.5 mg PO BID 07/01/23 - Past Medical/Surgical History Has patient received pneumonia vaccine in the past: No Diabetic: No -: Anxiety -: Depression -: ADHD -: Autism -: Insomia -: Cholecystectomy -: C-sectionx2 -: Tooth extraction -: D&C - Family History Father Medical History: Other (see notes) Notes: Bipolar Mother Medical History: Cancer Notes: Breast,Cervical,Dementia - Social History Smoking Status: Former smoker Alcohol use: No CD- Drugs: Yes Caffeine use: Yes Place of Residence: Home Review of Systems 10-point ROS is otherwise unremarkable Physical Examination - Vital Signs Temperature: 99.0 F Blood Pressure: 123/84 Pulse: 102 Respirations: 20 Pulse Ox (%): 95 - Physical Exam General: Alert, In no apparent distress, Oriented x3 HEENT: Atraumatic, PERRLA, Mucous membr. moist/pink, EOMI, Sclerae nonicteric Neck: Supple, 2+ carotid pulse no bruit, No LAD, Without JVD or thyroid abnormality Respiratory: Diminished, Inspiratory wheezes Cardiovascular: Regular rate/rhythm, Normal S1 S2 Gastrointestinal: Normal bowel sounds, No tenderness Musculoskeletal: No tenderness Integumentary: No rashes Neurological: Normal gait, Normal speech, Normal strength at 5/5 x4 extr, Normal tone, Normal affect Lymphatics: No axilla or inguinal lymphadenopathy Assessment & Plan - Problems (Diagnosis) (1) Acute asthma exacerbation Current Visit: Yes Status: Acute (2) Autism Current Visit: Yes Status: Acute (3) Anxiety disorder Current Visit: Yes Status: Acute (4) Depression Current Visit: Yes Status: Acute - Plan Plan: 1. Continue with albuterol and Atrovent nebs 2. Continue with IV steroids 3. Outpatient pulmonary function testing 4. Pulmonary follow-up if symptoms do not improve 5. Room air O2 sats 6. Repeat chest x-ray in the morning 7. Antidepressant and anxiolytics 8. GI and DVT prophylaxis Discharge Plan: Home Plan to discharge in: Greater than 2 days - Advance Directives Does patient have a Living Will: No Does patient have a Durable POA for Healthcare: No - Code Status/Comfort Care Code Status Assessed: Yes Code Status: Full Code Critical Care: No Time Spent Managing PTS Care (In Minutes): 35
--- NOTE | 2023-07-02 15:29 | EKG ---
Test Date: 2023-07-01 Test Time: 10:28:38 Clinical Appeals Rn: EMILY MEASUREMENT RESULTS: Intervals: Rate: 94 [place]: 126 QRSD: 72 QT: 354 QTc: 442 [place]: P: 74 [place]: 126 QRS: 89 T: 42 INTERPRETIVE STATEMENTS: Normal sinus rhythm Normal ECG Compared to ECG 02/22/2022 16:40:46 Sinus bradycardia no longer present Electronically Signed On 07-02-23 15:28:13 CDT by Larry Pino
[2023-07-02] MEDS: Levofloxacin 750mg IV 750 MG/150 ML BAG IV SCH (17:55)
[2023-07-02] MEDS ORDERED: clonazePAM 1 MG TAB PO ONE (18:10)
[2023-07-02] MEDS: clonazePAM 1 MG TAB PO SCH (20:26)
[2023-07-02] MEDS: MELATONIN 5 MG TABLET PO PRN (22:52)
[2023-07-03] MEDS: IPRATROPIUM BROM 0.5MG/2.5ML NEB SCH ×2 (02:00→08:00)
[2023-07-03] MEDS: ALBUTEROL 2.5 MG/3 ML NEB SOL NEB SCH ×2 (02:00→08:00)
[2023-07-03] MEDS: METHYLPREDNISOLONE 125 MG INJ IV SCH (05:18)
--- NOTE | 2023-07-03 05:51 | P.PN ---
Subjective Date of Service: 07/02/23 Subjective: No new changes, No C/O voiced, Improving Review of Systems 10-point ROS is otherwise unremarkable Physical Examination - Vital Signs Temperature: 99.0 F Blood Pressure: 123/84 Pulse: 102 Respirations: 20 Pulse Ox (%): 95 - Physical Exam General: Alert, In no apparent distress, Oriented x3 HEENT: Atraumatic, PERRLA, EOMI Neck: Supple, JVD not distended Respiratory: Clear to auscultation bilaterally, Normal air movement Cardiovascular: Regular rate/rhythm, Normal S1 S2 Gastrointestinal: Normal bowel sounds, No tenderness Musculoskeletal: No tenderness Integumentary: No rashes Neurological: Normal speech, Normal tone, Normal affect Lymphatics: No axilla or inguinal lymphadenopathy - Studies Medications List Reviewed: Yes Assessment & Plan - Problems (Diagnosis) (1) Acute asthma exacerbation Current Visit: Yes Status: Acute (2) Autism Current Visit: Yes Status: Acute (3) Anxiety disorder Current Visit: Yes Status: Acute (4) Depression Current Visit: Yes Status: Acute - Plan Plan: Patient overall doing well and anticipate discharge home in the morning. Continue with plan of care as mentioned below: 1. Continue with albuterol and Atrovent nebs 2. Continue with IV steroids 3. Outpatient pulmonary function testing 4. Pulmonary follow-up if symptoms do not improve 5. Room air O2 sats 6. Repeat chest x-ray in the morning 7. Antidepressant and anxiolytics 8. GI and DVT prophylaxis Discharge Plan: Home Plan to discharge in: 24 Hours - Advance Directives Does patient have a Living Will: No Does patient have a Durable POA for Healthcare: No - Code Status/Comfort Care Code Status: Full Code Critical Care: No Time Spent Managing PTS Care (In Minutes): 35
--- NOTE | 2023-07-03 07:29 | P.DS ---
Discharge Date: 07/03/23 Disposition: ROUTINE DISCHARGE Discharge Condition: GOOD Reason for Admission: Shortness of breath - Problems (1) Acute asthma exacerbation Current Visit: Yes Status: Acute (2) Autism Current Visit: Yes Status: Acute (3) Anxiety disorder Current Visit: Yes Status: Acute (4) Depression Current Visit: Yes Status: Acute Brief History of Present Illness: 27-year-old female with history of chronic cough who comes into the hospital with shortness of breath. Patient was given nebs and steroids and antibiotics. Patient has been having a lot of family issues and has been given anxiolytics. She started feeling much better. At this time, patient will be admitted to the hospital for further treatment. She will need outpatient follow-up with susan robert. Hospital Course: Patient has done well during hospital stay. Patient's respiratory status has improved. Patient will continue with anxiolytics. Patient continue with follow-up with pulmonary and allergies. Continue with tapering dose of steroids and nebulizer treatments. Patient will continue antibiotics for 5 more days. At this time, patient is doing well and she is stable for discharge home. Continue with her antidepressants as she is going to see her psychiatrist to possibly increase the dose. I will add anxiolytics to her regimen. Vital Signs/Physical Exam: Temp Pulse Resp BP Pulse Ox 99.0 F 102 H 20 123/84 95 07/03/23 05:51 07/03/23 05:51 07/03/23 05:51 07/03/23 05:51 07/03/23 05:51 General: Alert, In no apparent distress, Oriented x3 Laboratory Data at Discharge: WBC 10.40 thou/uL (4.3-10.9) 07/02/23 02:50 Hgb 12.5 g/dL (12.0-15.0) D 07/02/23 02:50 Hct 36.1 % (36.0-45.0) 07/02/23 02:50 Plt Count 336 thou/uL (152-406) 07/02/23 02:50 Sodium 141 mEq/L (136-145) 07/02/23 02:50 Potassium 4.2 mEq/L (3.5-5.1) D 07/02/23 02:50 BUN 10 mg/dL (7-18) 07/02/23 02:50 Creatinine 0.68 mg/dL (0.55-1.02) 07/02/23 02:50 Glucose 157 mg/dL (74-106) H 07/02/23 02:50 Phosphorus 2.6 mg/dL (2.5-4.9) 07/02/23 02:50 Magnesium 2.2 mg/dL (1.6-2.4) 07/02/23 02:50 Total Bilirubin 0.4 mg/dL (0.2-1.0) 07/02/23 02:50 AST 7 U/L (15-37) L 07/02/23 02:50 ALT 19 U/L (13-56) 07/02/23 02:50 Alkaline Phosphatase 45 U/L (45-117) 07/02/23 02:50 Home Medications: Desvenlafaxine [Desvenlafaxine ER] 100 mg PO BEDTIME 07/01/23 Dextroamphetamine/Amphetamine [Adderall 15 mg Tablet] 15 mg PO DAILY 07/01/23 Gabapentin [Neurontin*] 100 mg PO DAILY 07/01/23 Propranolol [Inderal*] 0.5 mg PO BID 07/01/23 Albuterol Neb [Proventil 0.083% Neb Soln] 2.5 mg NEB [id number] #60 amp 07/03/23 Benzonatate [Tessalon Perle*] 100 mg PO TID PRN #30 cap 07/03/23 Ipratropium Neb [Atrovent*] 0.5 mg NEB [id number] #60 amp 07/03/23 Melatonin 5 mg PO BEDTIME PRN PRN #30 tab 07/03/23 clonazePAM [Klonopin*] 0.5 mg PO TID #30 tab 07/03/23 levoFLOXacin [Levaquin] 500 mg PO DAILY #5 tab 07/03/23 predniSONE [Deltasone] 20 mg PO BID #11 tab 07/03/23 New Medications: Ipratropium Neb [Atrovent*] 0.5 mg NEB [id number] #60 amp clonazePAM [Klonopin*] 0.5 mg PO TID #30 tab levoFLOXacin [Levaquin] 500 mg PO DAILY #5 tab Melatonin 5 mg PO BEDTIME PRN PRN #30 tab PRN Reason: Insomnia predniSONE [Deltasone] 20 mg PO BID #11 tab Albuterol Neb [Proventil 0.083% Neb Soln] 2.5 mg NEB [id number] #60 amp Benzonatate [Tessalon Perle*] 100 mg PO TID PRN #30 cap PRN Reason: Cough Physician Discharge Instructions: -DC IV and DC home -Follow-up with PCP in 1 to 2 weeks -Follow-up with pulmonary or driller and reamer in 1 to 2 weeks -Please call Dr. Tsai at [phone] if any questions regarding hospital stay -Please call nursing station at [phone] if any nursing or medication questions -Return to the emergency room if symptoms worsen Diet: Regular Activity: Fall precautions Followup: Unknown,U [Primary Care Provider] - Time spent managing pt's care (in minutes): 35
[2023-07-03 08:57] VITALS: O2SAT 99
[2023-07-03 09:06] VITALS: BP 105/61; TEMP 98.2
[2023-07-03] MEDS: clonazePAM 1 MG TAB PO SCH (09:18)
[2023-07-03] MEDS: BENZONATATE 100 MG CAP PO PRN (09:21)
== END 2023-07-03 11:00 | disposition home or self-care (01) | DRG 202 ==
LOC: ER 10:18 → ERHOLD 15:00 → 2ND 17:26
PROVIDERS: ADMIT Hospitalist; ATTEND Hospitalist
DX: J45.901 Unspecified asthma with (acute) exacerbation (principal); F84.0 Autistic disorder; E28.2 Polycystic ovarian syndrome; F32.A Depression, unspecified; F41.9 Anxiety disorder, unspecified; R09.02 Hypoxemia; Z79.52 Long term (current) use of systemic steroids; Z90.49 Acquired absence of other specified parts of digestive tract; Z79.899 Other long term (current) drug therapy; Z87.891 Personal history of nicotine dependence; Z20.822 Contact with and (suspected) exposure to COVID-19
CPT/HCPCS: 36415; 71045; 71275; 80048; 80053; 82533; 83605; 83735; 83880; 84100; 84145; 84439; 84443; 84484; 85025; 85379; 87040; 87635; 93005; 94640; 94760; 96365; 96375; 99285; J1100; J2405; J2930; J3475; J7030; J7613; J7644; Q9967

== ENCOUNTER 2023-07-04 06:43 | Inpatient (IN) | payer BC, OTHER ==
--- OUTSIDE RECORDS SUMMARY | 2023-07-04 06:50 | XMS REPORT | Continuity of Care Document ---
:1995 Author Organization Formerly [facility] t Address [address] [place] [address] Care Team Providers Name Role Phone Linh Davis Primary Care Physician [phone] ARLYN GARBER Attending Clinician Unavailable ARLYN GARBER Attending Clinician Unavailable Arlen Madden RN Attending Clinician Unavailable Pob, [facility] Attending Clinician Unavailable LISSET CALHOUN Attending Clinician Unavailable Doctor Unassigned, [place] Attending Clinician Unavailable Mitchell Acevedo RN Attending [...] Clinician Unavailable Lisset Calhoun MD Admitting Clinician Leroy Cool Admitting Clinician Unavailable ARLYN GARBER Admitting Clinician Unavailable GUANAKITO FOX Admitting Clinician Unavailable Guanakito Fox MD Admitting Clinician Payers Payer Name Policy Type Policy Number Effective Date Expiration Date S sandy [facility] [id number] 2018 00:00:00 Problems Condition Condition Condition Status Onset Resolution Last Treating Co mments Source Name Details Category Date Date Treatment Clinician Date Missed Missed Disease Active Univers 9-22 ity of 00:00: [place] 00 [facility] Abdominal Abdominal Disease Active Uni vers pain pain 9-22 [place] of affecting [place] [facility] Nausea and Nausea and Disease Active U nivers vomiting vomiting 9-22 ity of during during 00:00: [place] 00 [facility] Vaginal Vaginal Disease Active 2021- Univers bleeding bleeding 9-20 it[place] of affecting [place] early early 00 Medical Bran ch Anxiety Anxiety Disease Active Univers 9-20 ity of 00:00: [place] 00 [facility] Vaginal Vaginal Disease Active Univers bleeding bleeding 9-20 ity of in in 00:00: [place] 00 [facility] Disease Active Unive rs delivery delivery 1-25 it[place] of delivered [place] [facility] Encounter Encounter Disease Active 2020-11 Uni vers for tubal for tubal 2-10 ity of ligation ligation 00:00: [place] counseling counseling 00 [facility] High-risk High-risk Disease Active 2020-11 Uni vers 2-10 ity of in third in third 00:00: [place] trimester trimester 00 [facility] Previous Previous Disease Active 2020-11 Unive rs 2-10 ity of section section 00:00: [place] 00 [facility] Branch History of History of Disease Active 2020-11 U nivers depression depression 2-10 it y of 00:00: [place] [address] Medical Branch History of History of Disease Active 2020-11 U nivers anxiety anxiety 2-10 ity of 00:00: [address] Branch Obesity Obesity Disease Active 2020-11 Univers during during 2-09 [place] [facility] Obesity Obesity Disease Active 2020-11 Univers (BMI (BMI 2-09 ity of 30-39.9) 30-39.9) 00:00: [address] History of History of Disease Active 2020-11 Overview : Univers 0-28 Formattin ity of section section 00:00: g of this [place] [address] note Medical might be Branch different from the original. Formattin g of this note might be different from the original. Desires trial of labor.Raul ared for trial of labor. epsPatien t declines trial of labor now.Prete rm labor. 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 Contracept Contracept Disease Active U roxana fredis fredis 3-03 ity of management [place] [facility] Vaginal Vaginal Disease Active Univers bleeding bleeding 3-03 ity of 00:00: [address] Allergies, Adverse Reactions, Alerts Allergy Allergy Status Severity Reaction(s) Onset Inactive Treating Comm ents Source Name Type Date Date Clinician No Known DA Active [facility] 9[facility]21 [place] [facility] NO KNOWN Drug Active Univers ALLERGIE Class ity of S [facility] Social History Social Habit Start Date Stop Date Quantity Comments Source ASSERTION 2021-04-23 University 00:00:00 [facility] History of Current smoker University of tobacco use [facility] Alcohol intake 2022-09-05 2022-09-05 0 /d University of 00:00:00 00:00:00 [facility] Exposure to 2022-08-05 2022-08-15 Not sure [facility] SARS-CoV-2 00:00:00 10:54:00 [facility] [place] Tobacco use and 2022-08-08 2022-08-08 Smokeless tobacco Un iversity of exposure 00:00:00 00:00:[address] [facility] Sex Assigned At [birth year] Universit y of 00:00:00 00:00:00 [facility] Smoking Status Start Date Stop Date Source Ex-smoker 2022-08-08 00:00:00 2022-08-08 00:00:[address] [facility] Medications Ordered Filled Start Stop Current Ordering Indication Dosage Frequency Signature Comments Components Source Medication Medication Date Date Medication? Clinician (SIG) Name Name metroNIDAZO 2021-11- No [id number] 500mg Take 1 Univers LE 500 mg 0-17 10-25 tablet by ity of tablet 00:00: 04:59 mouth [place] 00 :00 every 12 Medical (twelve) Branch hours for 7 days. metroNIDAZO 2021-11- No [id number] 500mg Take 1 Univers LE 500 mg 0-17 10-25 tablet by ity of tablet 00:00: 04:59 mouth [place] 00 :00 every 12 Medical (twelve) Branch hours for 7 days. ALPRAZolam 2021-11 Yes .5mg Take 0.5 Uni vers 0.5 mg 0-10 mg by ity of tablet 00:00: mouth in [place] [address] the Medical morning Branch and 0.5 mg at noon and 0.5 mg in the evening. propranoloL 2021-11 Yes Univer s 20 mg 0-10 ity of tablet 00:00: [place] 00 [facility] desvenlafax 2021-11 Yes Univer s ine 0-10 ity of succinate 00:00: [place] 25 mg Tb24 [facility] Branch ALPRAZolam 2021-11 Yes .5mg Take 0.5 Uni vers 0.5 mg 0-10 mg by ity of tablet 00:00: mouth in [place] [address] the Medical morning Branch and 0.5 mg at noon and 0.5 mg in the evening. propranoloL 2021-11 Yes Univer s 20 mg 0-10 ity of tablet 00:00: [place] 00 [facility] desvenlafax 2021-11 Yes Univer s ine 0-10 ity of succinate 00:00: [place] 25 mg Tb24 00 Medical Branch diazePAM 10 Yes Univer s mg tablet 08-17 ity of 00:00: [place] 00 Medical Branch buPROPion Yes Univers XL 150 mg 08-17 ity of 24 hr 00:00: [place] tablet 00 Medical Branch diazePAM 10 Yes Univer s mg tablet 08-17 ity of 00:00: [place] 00 Medical Branch buPROPion Yes Univers XL 150 mg 08-17 ity of 24 hr 00:00: [place] tablet 00 Medical Branch ketorolac 2021- No 30mg 30 mg, Unive rs (TORADOL) 08-12 Slow IV ity of injection 00:15: 23:29 Push, [place] 30 mg 00 :00 ONCE, 1 Medical dose, On Branch [facility] 08/11/22 at 1915, Routine ketorolac 2021- No 30mg 30 mg, Unive rs (TORADOL) 08-12 Slow IV ity of injection 00:15: 23:29 [place], [place] 30 mg 00 :00 ONCE, 1 Medical dose, On Branch [facility] 08/11/22 at 1915, Routine morpHINE (4 Yes 2mg 2 mg, Slow Univers mg/mL) 08-11 IV Push, ity of injection 2 23:11: Q5MIN PRN, [place] mg 20 5 doses, Medical Starting Branch on [place] 08/11/22 at 1811, Until Discontinu ed, Routine, Pain (scale 4-6), PACU ondansetron Yes 4mg 4 mg, Slow Univers (ZOFRAN 08-11 IV Push, ity of (PF)) 23:11: PRN, 1 [place] injection 4 20 dose, Medical mg Starting Branch on [place] 08/11/22 at 1811, Until Discontinu ed, Routine, Nausea and Vomiting (N/V), PACU morpHINE (4 2021- No 2mg 2 mg, Slow Univers mg/mL) 08-11 IV Push, ity of injection 2 23:11: 02:16 Q5MIN PRN, [place] mg 20 :19 5 doses, Medical Starting Branch on [place] 08/11/22 at 1811, Until [place] 08/11/22 at 2116, Routine, Pain [...] on [place] Branch 08/11/22 at 1745, Until [place] 08/11/22 at 1800, Routine, Intra-op water for Yes PRN, Univers irrigation 08-11 Starting ity o f irrigation 22:28: on [place] solution 00 08/11/22 at Medic al 1728, [facility], [facility] for 2021- No PRN, Univers irrigation 08-11 Starting ity of irrigation 22:28: 02:16 on [facility] [place] solution 00 :19 08/11/22 at Medic al 1728, Branch Until [facility] 08/11/22 at 2116, Routine, Intra-op ondansetron [...] INTRA ity of (Vibramycin 22:15: 23:00 PROCEDURE, [place] ) capsule 00 :49 Starting Medica l [...] 2021- No Intravenou Un gloria ringers IV 9-22 09-22 s, ity of infusion 22:03: 23:00 CONT[place]UOUS [place] 00 :49 PRN, Medical Starting Branch on Mon08/11/22 at 1703, Until Mon08/11/22 at 1800, Routine, Intra-op haloperidol 2021-0 2021- No 1mg 1 mg, Univ ers lactate 08-11 Intravenou ity o f (HALDOL) 21:00: 20:57 s, ONCE, 1 [place] injection 1 00 :00 dose, On Medi juany mg [place] Branch 08/11/22 at 1600, STAT haloperidol 2021-0 2021- No 1mg 1 mg, Univ ers lactate 08-11 Intravenou ity o f (HALDOL) 21:00: 20:57 s, ONCE, 1 [place] injection 1 00 :00 dose, On Medi juany mg [place] Branch 08/11/22 at 1600, STAT ondansetron 2021-0 2021- No 4mg 4 mg, Slow Univers (ZOFRAN 08-11 IV Push, ity of (PF)) 19:30: 18:32 ONCE, 1 [place] injection 4 00 :00 dose, On Medi juany mg [place] Branch 08/11/22 at 1430, BRIGID famotidine 2021-0 2021- No 20mg 20 mg, Univ ers (PEPCID 08-11 Slow IV ity of (PF)) 19:30: 19:29 [place], [place] injection 00 :00 ONCE, 1 Medical 20 mg dose, On Branch [place] 08/11/22 at 1430, BRIGID ondansetron 2021-0 2021- No 4mg 4 mg, Slow Univers (ZOFRAN 08-11 IV Push, ity of (PF)) 19:30: 18:32 ONCE, 1 [place] injection 4 00 :00 dose, On Medi juany mg [place] Branch 08/11/22 at 1430, BRIGID famotidine 2021-0 2021- No 20mg 20 mg, Univ ers (PEPCID 08-11 Slow IV ity of (PF)) 19:30: 19:29 [place], [place] injection 00 :00 ONCE, 1 Medical 20 mg dose, On Branch [facility] 08/11/22 at 1430, BRIGID 2022-0 Yes Take by Univer s vit 9-22 mouth. ity of calc,iron,f 19:16: [address] ( Branch VITAMIN ORAL) Yes Take by Univer s vit 9-22 mouth. ity of calc,iron,f 19:16: [address] ( Branch VITAMIN ORAL) Yes Take by Univer s vit 9-22 mouth. ity of calc,iron,f 19:16: [address] ( Branch VITAMIN ORAL) Yes Take by Univer s vit 9-22 mouth. ity of calc,iron,f 19:16: [address] ( Branch VITAMIN ORAL) Yes Take by Univer s vit 9-22 mouth. ity of calc,iron,f 19:16: [address] ( Branch VITAMIN ORAL) Yes Take by Univer s vit 9-22 mouth. ity of calc,iron,f 19:16: [address] ( Branch VITAMIN ORAL) Yes Take by Univer s vit 9-22 mouth. ity of calc,iron,f 19:16: [address] ( Branch VITAMIN ORAL) Yes Take by Univer s vit 9-22 mouth. ity of calc,iron,f 19:16: [address] ( Branch VITAMIN ORAL) Yes Take by Univer s vit 9-22 mouth. ity of calc,iron,f 19:16: [place] [address] Medical ( Branch VITAMIN ORAL) Yes Take by Univer s vit 9-22 mouth. ity of calc,iron,f 19:16: [place] [address] Medical ( Branch VITAMIN ORAL) Yes Take by Univer s vit 9-22 mouth. ity of calc,iron,f 19:16: [place] [address] Medical ( Branch VITAMIN ORAL) Yes Take by Univer s vit 9-22 mouth. ity of calc,iron,f 19:16: [place] [address] Medical ( Branch VITAMIN ORAL) Yes Take by Univer s vit 9-22 mouth. ity of calc,iron,f 19:16: [address] ( Branch VITAMIN ORAL) Yes Take by [facility] [facility] s vit 08-11 mouth. ity of calc,iron,f 19:16: [address] ( Branch VITAMIN ORAL) NaCl 0.9% 2021- No 1000mL at 999 Uni vers (NS) bolus 08-11 mL/hr, ity of infusion 17:15: 17:30 1,000 mL, [place] 1,000 mL 00 :00 [facility] dose, On [place] 08/11/22 at 1215, STAT NaCl 0.9% 2021- No 1000mL at 999 Uni vers (NS) bolus 08-11 mL/hr, ity of infusion 17:15: 17:30 1,000 mL, [place] 1,000 mL 00 :00 [facility] dose, On [place] 08/11/22 at 1215, STAT morpHINE (4 2021- No 4mg 4 mg, Slow Univers mg/mL) 08-11 IV Push, ity of injection 4 16:45: 16:05 ONCE, 1 [place] mg 00 :00 dose, On [facility] 08/11/22 at 1145, STAT morpHINE (4 2021- No 4mg 4 mg, Slow Univers mg/mL) 08-11 IV Push, ity of injection 4 16:45: 16:05 ONCE, 1 [place] mg 00 :00 dose, On [facility] 08/11/22 at 1145, STAT proMETHazin 2021- No 12.5mg 12.5 mg, Univers e 08-11 IV ity of (PHENERGAN) 16:00: 16:09 [place], [place] 12.5 mg in 00 :00 ONCE, 1 Medica l NaCl 0.9% dose, On Branch (NS) 50 mL [place] IV 08/11/22 at piggyback 1100, BRIGID proMETHazin 2021- No 12.5mg 12.5 mg, Univers e 08-11 IV ity of (PHENERGAN) 16:00: 16:[place] 12.5 mg in 00 :00 ONCE, 1 Medica l NaCl 0.9% dose, On Branch (NS) 50 mL [place] IV 08/11/22 at piggyback 1100, BRIGID ondansetron 2021-0 202- No 4mg 4 mg, Slow Univers (ZOFRAN 08-11 IV Push, ity of (PF)) 15:15: 15:11 ONCE, 1 [place] injection 4 00 :00 dose, On Medi juany mg [place] Branch 08/11/22 at 1015, BRIGID ondansetron 2021-0 202- No 4mg 4 mg, Slow Univers (ZOFRAN 08-11 IV Push, ity of (PF)) 15:15: 15:11 ONCE, 1 [place] injection 4 00 :00 dose, On Medi juany mg [place] Branch 08/11/22 at 1015, BRIGID ibuprofen 2021-0 Yes [id number] 800mg Take 1 Univers 800 mg 9-22 tablet by ity of tablet 00:00: mouth [place] 00 every 6 Medical (six) Branch hours as needed for Alternate with [place] for pain scale 4-6. amoxicillin 2021-0 Yes [id number] 500mg Take 1 Univers -pot 9-22 tablet by ity of clavulanate 00:00: mouth in [place] 500 mg 00 the Medical (AUGMENTIN) morning Branc h 500-125 mg and 1 tablet tablet at noon and 1 tablet in the evening. methylergon 2021-0 Yes [id number] 200ug Take 1 Univers ovine 0.2 9-22 tablet by ity o f mg tablet 00:00: mouth [place] 00 every 6 Medical (six) Branch hours. ibuprofen 2022-0 Yes [id number] 800mg Take 1 Univers 800 mg 9-22 tablet by ity of tablet 00:00: mouth [place] 00 every 6 Medical (six) Branch hours as needed for Alternate with [place] for pain scale 4-6. amoxicillin 2-0 Yes [id number] 500mg Take 1 Univers -pot 9-22 tablet by ity of clavulanate 00:00: mouth in [place] 500 mg 00 the Medical (AUGMENTIN) morning Branc h 500-125 mg and 1 tablet tablet at noon and 1 tablet in the evening. methylergon 2022-0 Yes [id number] 200ug Take 1 Univers ovine 0.2 9-22 tablet by ity o f mg tablet 00:00: mouth [place] 00 every 6 Medical (six) Branch hours. ibuprofen 2021-0 Yes [id number] 800mg Take 1 Univers 800 mg 9-22 tablet by ity of tablet 00:00: mouth [place] 00 every 6 Medical (six) Branch hours as needed for Alternate with [place] for pain scale 4-6. amoxicillin 2021-0 Yes [id number] 500mg Take 1 Univers -pot 9-22 tablet by ity of clavulanate 00:00: mouth in [place] 500 mg 00 the Medical (AUGMENTIN) morning Branc h 500-125 mg and 1 tablet tablet at noon and 1 tablet in the evening. methylergon 2021-0 Yes [id number] 200ug Take 1 Univers ovine 0.2 9-22 tablet by ity o f mg tablet 00:00: mouth [place] 00 every 6 Medical (six) Branch hours. ibuprofen 2021-0 Yes [id number] 800mg Take 1 Univers 800 mg 9-22 tablet by ity of tablet 00:00: mouth [place] 00 every 6 Medical (six) Branch hours as needed for Alternate with [place] for pain scale 4-6. amoxicillin 2021-0 Yes [id number] 500mg Take 1 Univers -pot 9-22 tablet by ity of clavulanate 00:00: mouth in [place] 500 mg 00 the Medical (AUGMENTIN) morning Branc h 500-125 mg and 1 tablet tablet at noon and 1 tablet in the evening. methylergon 2-0 Yes [id number] 200ug Take 1 Univers ovine 0.2 9-22 tablet by ity o f mg tablet 00:00: mouth [place] 00 every 6 Medical (six) Branch hours. ibuprofen 2022-0 Yes [id number] 800mg Take 1 Univers 800 mg 9-22 tablet by ity of tablet 00:00: mouth [place] 00 every 6 Medical (six) Branch hours as needed for Alternate with [place] for pain scale 4-6. amoxicillin 2-0 Yes [id number] 500mg Take 1 Univers -pot 9-22 tablet by ity of clavulanate 00:00: mouth in [place] 500 mg 00 the Medical (AUGMENTIN) morning Branc h 500-125 mg and 1 tablet tablet at noon and 1 tablet in the evening. methylergon 2022-0 Yes [id number] 200ug Take 1 Univers ovine 0.2 9-22 tablet by ity o f mg tablet 00:00: mouth [place] 00 every 6 Medical (six) Branch hours. ibuprofen 2022-0 Yes [id number] 800mg Take 1 Univers 800 mg 9-22 tablet by ity of tablet 00:00: mouth [place] 00 every 6 Medical (six) Branch hours as needed for Alternate with [place] for pain scale 4-6. amoxicillin 202-0 Yes [id number] 500mg Take 1 Univers -pot 9-22 tablet by ity of clavulanate 00:00: mouth in [place] 500 mg 00 the Medical (AUGMENTIN) morning Branc h 500-125 mg and 1 tablet tablet at noon and 1 tablet in the evening. methylergon 2022-0 Yes [id number] 200ug Take 1 Univers ovine 0.2 9-22 tablet by ity o f mg tablet 00:00: mouth [place] 00 every 6 Medical (six) Branch hours. ibuprofen 2021-0 Yes [id number] 800mg Take 1 Univers 800 mg 9-22 tablet by ity of tablet 00:00: mouth [place] 00 every 6 Medical (six) Branch hours as needed for Alternate with [place] for pain scale 4-6. amoxicillin 2021-0 Yes [id number] 500mg Take 1 Univers -pot 9-22 tablet by ity of clavulanate 00:00: mouth in [place] 500 mg 00 the Medical (AUGMENTIN) morning Branc h 500-125 mg and 1 tablet tablet at noon and 1 tablet in the evening. methylergon 2022-0 Yes [id number] 200ug Take 1 Univers ovine 0.2 9-22 tablet by ity o f mg tablet 00:00: mouth [place] 00 every 6 Medical (six) Branch hours. ibuprofen 2022-0 Yes [id number] 800mg Take 1 Univers 800 mg 9-22 tablet by ity of tablet 00:00: mouth [place] 00 every 6 Medical (six) Branch hours as needed for Alternate with [place] for pain scale 4-6. amoxicillin 2022-0 Yes [id number] 500mg Take 1 Univers -pot 9-22 tablet by ity of clavulanate 00:00: mouth in [place] 500 mg 00 the Medical (AUGMENTIN) morning Branc h 500-125 mg and 1 tablet tablet at noon and 1 tablet in the evening. methylergon 2022-0 Yes [id number] 200ug Take 1 Univers ovine 0.2 9-22 tablet by ity o f mg tablet 00:00: mouth [place] 00 every 6 Medical (six) Branch hours. ibuprofen 2021-0 Yes [id number] 800mg Take 1 Univers 800 mg 9-22 tablet by ity of tablet 00:00: mouth [place] 00 every 6 Medical (six) Branch hours as needed for Alternate with [place] for pain scale 4-6. amoxicillin 2021-0 Yes [id number] 500mg Take 1 Univers -pot 9-22 tablet by ity of clavulanate 00:00: mouth in [place] 500 mg 00 the Medical (AUGMENTIN) morning Branc h 500-125 mg and 1 tablet tablet at noon and 1 tablet in the evening. methylergon 2021-0 Yes [id number] 200ug Take 1 Univers ovine 0.2 9-22 tablet by ity o f mg tablet 00:00: mouth [place] 00 every 6 Medical (six) Branch hours. ibuprofen 2021-0 Yes [id number] 800mg Take 1 Univers 800 mg 9-22 tablet by ity of tablet 00:00: mouth [place] 00 every 6 Medical (six) Branch hours as needed for Alternate with [place] for pain scale 4-6. amoxicillin 2021-0 Yes [id number] 500mg Take 1 Univers -pot 9-22 tablet by ity of clavulanate 00:00: mouth in [place] 500 mg 00 the Medical (AUGMENTIN) morning Branc h 500-125 mg and 1 tablet tablet at noon and 1 tablet in the evening. methylergon 2-0 Yes [id number] 200ug Take 1 Univers ovine 0.2 9-22 tablet by ity o f mg tablet 00:00: mouth [place] 00 every 6 Medical (six) Branch hours. ibuprofen 2022-0 Yes [id number] 800mg Take 1 Univers 800 mg 9-22 tablet by ity of tablet 00:00: mouth [place] 00 every 6 Medical (six) Branch hours as needed for Alternate with [place] for pain scale 4-6. methylergon 2022-0 Yes [id number] 200ug Take 1 Univers ovine 0.2 9-22 tablet by ity o f mg tablet 00:00: mouth [place] 00 every 6 Medical (six) Branch hours. ibuprofen Yes [id number] 800mg Take 1 Univers 800 mg 9-22 tablet by ity of tablet 00:00: mouth [place] 00 every 6 Medical (six) Branch hours as needed for Alternate with [place] for pain scale 4-6. methylergon Yes [id number] 200ug Take 1 Univers ovine 0.2 9-22 tablet by ity o f mg tablet 00:00: mouth [place] 00 every 6 Medical (six) Branch hours. amoxicillin 2021- No [id number] 500mg Take 1 Univers -pot 9-22 10-17 tablet by ity of clavulanate 00:00: 00:00 mouth in [place] 500 mg 00 :00 the Medical (AUGMENTIN) morning Branc h 500-125 mg and 1 tablet tablet at noon and 1 tablet in the evening. amoxicillin 2021- No [id number] 500mg Take 1 Univers -pot 9-22 10-17 [...] 7 days. Indication s: acute pain ondansetron 2-0 Yes [id number] 8mg Take 1 Univers 8 mg 9-21 tablet by ity of disintegrat 00:00: mouth [place] ing tablet 00 every 8 Medica l (eight) Branch hours as needed for Nausea and Vomiting (N/V). ondansetron 2022-0 Yes [id number] 8mg Take 1 Univers 8 mg 9-21 tablet by ity of disintegrat 00:00: mouth [place] ing tablet 00 every 8 Medica l (eight) Branch hours as needed for Nausea and Vomiting (N/V). ondansetron 2022-0 Yes [id number] 8mg Take 1 Univers 8 mg 9-21 tablet by ity of disintegrat 00:00: mouth [place] ing tablet 00 every 8 Medica l (eight) Branch hours as needed for Nausea and Vomiting (N/V). ondansetron 2-0 Yes [id number] 8mg Take 1 Univers 8 mg 9-21 tablet by ity of disintegrat 00:00: mouth [place] ing tablet 00 every 8 Medica l (eight) Branch hours as needed for Nausea and Vomiting (N/V). ondansetron 2021-0 Yes [id number] 8mg Take 1 Univers 8 mg 9-21 tablet by ity of disintegrat 00:00: mouth [place] ing tablet 00 every 8 Medica l (eight) Branch hours as needed for Nausea and Vomiting (N/V). ondansetron 2021-0 Yes [id number] 8mg Take 1 Univers 8 mg 9-21 tablet by ity of disintegrat 00:00: mouth [place] ing tablet 00 every 8 Medica l (eight) Branch hours as needed for Nausea and Vomiting (N/V). ondansetron 2021-0 Yes [id number] 8mg Take 1 Univers 8 mg 9-21 tablet by ity of disintegrat 00:00: mouth [place] ing tablet 00 every 8 Medica l (eight) Branch hours as needed for Nausea and Vomiting (N/V). ondansetron 2021-0 Yes [id number] 8mg Take 1 Univers 8 mg 9-21 tablet by ity of disintegrat 00:00: mouth [place] ing tablet 00 every 8 Medica l (eight) Branch hours as needed for Nausea and Vomiting (N/V). ondansetron 2021-0 Yes [id number] 8mg Take 1 Univers 8 mg 9-21 tablet by ity of disintegrat 00:00: mouth [place] ing tablet 00 every 8 Medica l (eight) Branch hours as needed for Nausea and Vomiting (N/V). ondansetron 2-0 Yes [id number] 8mg Take 1 Univers 8 mg 9-21 tablet by ity of disintegrat 00:00: mouth [place] ing tablet 00 every 8 Medica l (eight) Branch hours as needed for Nausea and Vomiting (N/V). ondansetron 2-0 Yes [id number] 8mg Take 1 Univers 8 mg 9-21 tablet by ity of disintegrat 00:00: mouth [place] ing tablet 00 every 8 Medica l (eight) Branch hours as needed for Nausea and Vomiting (N/V). ondansetron 0 Yes [id number] 8mg Take 1 Univers 8 mg 9-21 tablet by ity of disintegrat 00:00: mouth [place] ing tablet 00 every 8 Medica l (eight) Branch hours as needed for Nausea and Vomiting (N/V). ondansetron 0 Yes [id number] 8mg Take 1 Univers 8 mg 9-21 tablet by ity of disintegrat 00:00: mouth [place] ing tablet 00 every 8 Medica l (eight) Branch hours as needed for Nausea and Vomiting (N/V). ondansetron 0 Yes [id number] 8mg Take 1 Univers 8 mg 9-21 tablet by ity of disintegrat 00:00: mouth [place] ing tablet 00 every 8 Medica l (eight) Branch hours as needed for Nausea and Vomiting (N/V). LORazepam Yes TAKE 1 Univer s 0.5 mg 9-21 TABLET BY ity of tablet 00:00: MOUTH [place] 00 EVERY 8 Medical HOURS Branch NEEDED FOR ANXIETY ondansetron 0 Yes [id number] 8mg Take 1 Univers 8 mg 9-21 tablet by ity of disintegrat 00:00: mouth [place] ing tablet 00 every 8 Medica l (eight) Branch hours as needed for Nausea and Vomiting (N/V). LORazepam Yes TAKE 1 Univer s 0.5 mg 9-21 TABLET BY ity of tablet 00:00: MOUTH [place] 00 EVERY 8 Medical HOURS Branch NEEDED FOR ANXIETY Yes Take by [employer] [facility] vit 9-19 mouth. ity of calc,iron,f 11:16: [place] [address] Medical ( Branch VITAMIN ORAL) Yes Take by [employer] vit 9-19 mouth. ity of calc,iron,f 11:16: [place] [address] Medical ( Branch VITAMIN ORAL) 0 Yes Take by [employer] vit 9-19 mouth. ity of calc,iron,f 11:16: [place] [address] Medical ( Branch VITAMIN ORAL) 0 Yes Take by [employer] vit 9-19 mouth. ity of calc,iron,f 11:16: [place] [address] Medical ( Branch VITAMIN ORAL) TRAMADOL-AC No ETAMINOPHN 08 37.5-325 00:00: 00 TAKE 1 0 No TABLET BY 07-28 MOUTH EVERY 00:00: 8 HOURS FOR 00 UP TO 31 DAYS NEEDED FOR PAIN dextroamphe Yes Univer s tamine-amph 8-18 ity of etamine 20 00:00: [place] mg tablet 00 Medical Branch dextroamphe 2021-0 Yes Univer s tamine-amph 8-18 ity of etamine 20 00:00: [place] mg tablet 00 Medical Branch dextroamphe 2021-0 Yes Univmaia s tamine-amph 8-18 ity of etamine 20 00:00: [place] mg tablet 00 Medical Branch dextroamphe 2021-0 Yes Kelley s tamine-amph 8-18 ity of etamine 20 00:00: [place] mg tablet 00 Medical Branch dextroamphe 2021-0 Yes Kelley s tamine-amph 8-18 ity of etamine 20 00:00: [place] mg tablet 00 Medical Branch dextroamphe 2021-0 Yes Univmaia s tamine-amph 8-18 ity of etamine 20 [...] tablet 00 Medical Branch dextroamphe 2021-0 Yes Univmaia s tamine-amph 8-18 ity of etamine 20 [...] etamine 20 00:00: [place] mg tablet 00 [facility] dextroamphe Yes Univer s tamine-amph 8-18 ity of etamine 20 00:00: [place] mg tablet 00 [facility] dextroamphe Yes Univer s tamine-amph 8-18 ity of etamine 20 00:00: [place] mg tablet 00 [facility] dextroamphe Yes Univer s tamine-amph 8-18 ity of etamine 20 00:00: [place] mg tablet 00 [facility] dextroamphe Yes Univer s tamine-amph 8-18 ity of etamine 20 00:00: [place] mg tablet 00 [facility] dextroamphe Yes Univer s tamine-amph 8-18 ity of etamine 20 00:00: [place] mg tablet 00 [facility] zolpidem 10 Yes TAKE 1/2 [place] mg tablet 7-18 TO 1 ity of 00:00: TABLET BY [place] MOUTH Medical DAILY AT [facility] zolpide 10 Yes TAKE 1/2 [place] mg tablet 7-18 TO 1 ity of 00:00: TABLET BY [place] MOUTH Medical DAILY AT [facility] zolpide 10 Yes TAKE 1/2 [place] mg tablet 7-18 TO 1 ity of 00:00: TABLET BY [place] MOUTH Medical DAILY AT [facility] zolpide 10 Yes TAKE 1/2 [place] mg tablet 7-18 TO 1 ity of 00:00: TABLET BY [place] MOUTH Medical DAILY AT [facility] zolpidem 10 Yes TAKE 1/2 [place] mg tablet 7-18 TO 1 ity of 00:00: TABLET BY [place] MOUTH Medical DAILY AT [facility] zolpidem 10 Yes TAKE 1/2 [place] mg tablet 7-18 TO 1 ity of 00:00: TABLET BY [place] [address] MOUTH Medical DAILY AT [facility] zolpidem 10 Yes TAKE 1/2 [place] mg tablet 7-18 TO 1 ity of 00:00: TABLET BY [place] [address] MOUTH Medical DAILY AT [facility] zolpidem 10 Yes TAKE 1/2 [place] mg tablet 7-18 TO 1 ity of 00:00: TABLET BY [place] [address] MOUTH Medical DAILY AT [facility] zolpide 10 Yes TAKE 1/2 [place] mg tablet 7-18 TO 1 ity of 00:00: TABLET BY [place] [address] MOUTH Medical DAILY AT [facility] zolpide 10 Yes TAKE 1/2 [place] mg tablet 7-18 TO 1 ity of 00:00: TABLET BY [place] [address] MOUTH Medical DAILY AT [facility] zolde 10 Yes TAKE 1/2 [place] mg tablet 7-18 TO 1 ity of 00:00: TABLET BY [place] [address] MOUTH Medical DAILY AT [facility] zolde 10 Yes TAKE 1/2 [place] mg tablet 7-18 TO 1 ity of 00:00: TABLET BY [place] [address] MOUTH Medical DAILY AT [facility] zolpide 10 Yes TAKE 1/2 [place] mg tablet 7-18 TO 1 ity of 00:00: TABLET BY [place] [address] MOUTH [facility] DAILY AT [facility] [place] [address] Yes TAKE 1/2 [place] mg tablet 7-18 TO 1 ity of 00:00: TABLET BY [place] [address] MOUTH [facility] DAILY AT [facility] Yes TAKE 1/2 [place] mg tablet 7-18 TO 1 ity of 00:00: TABLET BY [place] [address] MOUTH Medical DAILY AT [facility] zolde 10 Yes TAKE 1/2 [place] mg tablet 7-18 TO 1 ity of 00:00: TABLET BY [place] [address] MOUTH Medical DAILY AT [facility] zolde 10 Yes TAKE 1/2 [place] mg tablet 7-18 TO 1 ity of 00:00: TABLET BY [place] [address] MOUTH Medical DAILY AT [facility] zolde 10 Yes TAKE 1/2 [place] mg tablet 7-18 TO 1 ity of 00:00: TABLET BY [place] [address] MOUTH Medical DAILY AT [facility] desvenlafax Yes Univer s ine 7-15 ity of succinate 00:00: [place] 50 mg 24 hr 00 [facility] Un[facility] ine 7-15 ity of [...] 24 hr 00 Medical tablet Branch desvenlafax 2021-0 Yes [facility] ine 7-15 ity of succinate 00:00: [place] 50 mg 24 hr 00 Medical tablet Branch desvenlafax 0 Yes [facility] ine 7-15 ity of succinate 00:00: [place] 50 mg 24 hr 00 Medical tablet Branch 2020-11 Yes Take by [facility] vit 2-09 mouth. ity of calc,iron,f 14:57: [place] [id number] Medical ([facility] Branch VITAMIN ORAL) 2020-11 Yes Take by [facility] vit 2-09 mouth. ity of calc,iron,f 14:57: [facility] 53 Medical ([facility] Branch VITAMIN ORAL) Nitrofurant 2020-11 Yes [id number] 100mg Take 1 Univers oin&Nit. 1-26 capsule by ity o f [place] 00:[place]: [place] 2 [place] 100 [place] 00 (two) Medical capsule times [place] daily. Nitrofurant 2020-11- No [id number] 100mg Take 1 Univers oin&Nit. 1-26 12-10 capsule by ity of Mac[place]ryst 00:00: 00:00 mouth 2 [place] 100 mg 00 :00 (two) Medical capsule times [place] daily. haloperidol 2020- No 2.5mg 2.5 mg, [...] 01/29/21 at Branch 0915, STAT ondansetron Yes [id number] 4mg Take 1 Univers 4 mg 3-12 tablet by ity of disintegrat 00:00: mouth [place] ing tablet 00 every 8 Medica l (eight) Branch hours as needed for Nausea and Vomiting (N/V). ondansetron Yes [id number] 4mg Take 1 Univers 4 mg 3-12 tablet by ity of disintegrat 00:00: mouth [place] ing tablet 00 every 8 Medica l (eight) Branch hours as needed for Nausea and Vomiting (N/V). ondansetron Yes [id number] 4mg Take 1 Univers 4 mg 3-12 tablet by ity of disintegrat 00:00: mouth [place] ing tablet 00 every 8 Medica l (eight) Branch hours as needed for Nausea and Vomiting (N/V). ondansetron 2020- No [id number] 4mg Take 1 Univers 4 mg 3-12 12-10 tablet by ity of disintegrat 00:00: 00:00 [place] :00 every 8 Medica l (eight) Branch hours as needed for Nausea and Vomiting (N/V). cephALEXin 2020- No [id number] 500mg Take 1 Univers (KEFLEX) 3-12 03-20 capsule by ity of 500 mg 00:00: 04:59 mouth 3 [place] capsule 00 :00 (three) Medical times Branch daily for 7 days. dicyclomine 2020- No [id number] 10mg Take 1 Univers (BENTYL) 10 3-12 03-18 capsule by i ty of mg capsule 00:00: 04:59 mouth [place] 00 :00 every 8 Medical (eight) Branch hours as needed for Abdominal pain for up to 5 days. Immunizations Ordered Filled Immunization Date Status Comments [facility] e Immunization Name Name [facility] 2012-11-20 Completed University of 00:00:00 [facility] 2012-11-20 Completed University of 00:00:00 [facility] 2012-11-20 Completed University of 00:00:00 [facility] 2012-11-20 Completed [facility] 2012[facility]11-20 Completed University of 00:00:00 [facility] TDAP 2012-11-20 Completed University of 00:00:00 [facility] Branch TDAP 2012-11-20 Completed University of 00:00:00 [facility] Branch TDAP 2012-11-20 Completed University of 00:00:00 [facility] Branch TDAP 2012-11-20 Completed University of 00:00:00 [facility] Branch TDAP 2012-11-20 Completed University of 00:00:00 [facility] Branch TDAP 2012-11-20 Completed University of 00:00:00 [facility] Branch TDAP 2012-11-20 Completed University of 00:00:00 [facility] Branch TDAP 2012-11-20 Completed University of 00:00:00 [facility] Branch TDAP 2012-11-20 Completed University of 00:00:00 [facility] Branch TDAP 2012-11-20 Completed University of 00:00:00 [facility] Branch TDAP 2012-11-20 Completed University of 00:00:00 [facility] TDAP 2012-11-20 Completed University of 00:00:00 [facility] TDAP 2012-11-20 Completed University of 00:00:00 [facility] TDAP 2012-11-20 Completed University of 00:00:00 [facility] TDAP 2012-11-20 Completed University of 00:00:00 [facility] TDAP 2012-11-20 Completed University of 00:00:00 [facility] DTAP 2002-02-27 Completed University of 00:00:00 [facility] Polio (IPV/OPV) 2002-02-27 Completed Universit y of 00:00:00 [facility] MMR 2002-02-27 Completed University of 00:00:00 [facility] Pneumococcal 7 2002-02-27 Completed University of Conjugate, PCV7 00:00:00 [place] [facility] ical (Prevnar7) Branch DTAP 2002-02-27 Completed University of 00:00:00 [facility] MMR 2002-02-27 Completed University of 00:00:00 [facility] Pneumococcal 7 2002-02-27 Completed University of Conjugate, PCV7 00:00:00 [place] [facility] ical (Prevnar7) Branch Polio (IPV/OPV) 2002-02-27 Completed Universit y of 00:00:00 [facility] DTAP 2002-02-27 Completed University of 00:00:00 [facility] Polio (IPV/OPV) 2002-02-27 Completed Universit y of 00:00:00 [facility] MMR 2002-02-27 Completed University of 00:00:00 [facility] Pneumococcal 7 2002-02-27 Completed University of Conjugate, PCV7 00:00:00 [place] [facility] ical (Prevnar7) Branch DTAP 2002-02-27 Completed University of 00:00:00 [facility] MMR 2002-02-27 Completed University of 00:00:00 [facility] Pneumococcal 7 2002-02-27 Completed University of Conjugate, PCV7 00:00:00 [place] Med ical (Prevnar7) Branch Polio (IPV/OPV) 2002-02-27 Completed Universit y of 00:00:00 [facility] DTAP 2002-02-27 Completed University of 00:00:00 [facility] Polio (IPV/OPV) 2002-02-27 Completed Universit y of 00:00:00 [facility] MMR 2002-02-27 Completed University of 00:00:00 [facility] Pneumococcal 7 2002-02-27 Completed University of Conjugate, PCV7 00:00:00 [place] [facility] ical (Prevnar7) Branch DTAP 2002-02-27 Completed University of 00:00:00 [facility] MMR 2002-02-27 Completed University of 00:00:00 [facility] Pneumococcal 7 2002-02-27 Completed University of Conjugate, PCV7 00:00:00 [place] [facility] ical (Prevnar7) Branch Polio (IPV/OPV) 2002-02-27 Completed Universit y of 00:00:00 [facility] DTAP 2002-02-27 Completed University of 00:00:00 [facility] Polio (IPV/OPV) 2002-02-27 Completed Universit y of 00:00:00 [facility] MMR 2002-02-27 Completed University of 00:00:00 [facility] Pneumococcal 7 2002-02-27 Completed University of Conjugate, PCV7 00:00:00 [place] [facility] ical (Prevnar7) Branch DTAP 2002-02-27 Completed University of 00:00:00 [facility] MMR 2002-02-27 Completed University of 00:00:00 [facility] Branch Pneumococcal 7 2002-02-27 Completed University of Conjugate, PCV7 00:00:00 [place] [facility] ical (Prevnar7) Branch Polio (IPV/OPV) 2002-02-27 Completed Universit y of 00:00:00 [facility] DTAP 2002-02-27 Completed University of 00:00:00 [facility] Branch Polio (IPV/OPV) 2002-02-27 Completed Universit y of 00:00:00 [facility] Branch MMR 2002-02-27 Completed University of 00:00:00 [facility] Branch Pneumococcal 7 2002-02-27 Completed University of Conjugate, PCV7 00:00:00 [place] [facility] ical (Prevnar7) Branch DTAP 2002-02-27 Completed University of 00:00:00 [facility] Branch MMR 2002-02-27 Completed University of 00:00:00 [facility] Branch Pneumococcal 7 2002-02-27 Completed University of Conjugate, PCV7 00:00:00 [place] [facility] ical (Prevnar7) Branch Polio (IPV/OPV) 2002-02-27 Completed Universit y of 00:00:00 [facility] Vital Signs Vital Name Observation Time Observation Value Comments Source Systolic blood 2022-09-05 20:16:00 116 mm[Hg] Univer sity of pressure [facility] Diastolic blood 2022-09-05 20:16:00 78 mm[Hg] Unive rsity of [facility] Heart rate 2022-09-05 20:16:00 75 /min Universi ty [facility] Body temperature 2022-09-05 20:16:00 [facility].67 [facility] 2022-09-05 20:16:00 18 /min [facility] Body height 2022-09-05 20:16:00 154[facility]9 [facility] Body weight 2022-09-05 20:16:00 52.617 kg [facility] BMI 2022-09-05 20:16:00 21.92 kg/m2 Universi ty [facility] Systolic blood 2022-08-16 21:29:00 117 mm[Hg] Univer sity of pressure [facility] Diastolic blood 2022-08-16 21:29:00 78 mm[Hg] Unive rsity of pressure [facility] Heart rate 2022-08-16 21:29:00 84 /min Universi ty [facility] Body temperature 2022-08-16 21:29:00 36.94 [place] [facility] Respiratory rate 2022-08-16 21:29:00 18 /min Univ ersity of [facility] Body height 2022-08-16 21:29:00 154.9 cm Universi ty of [place] [facility] [place] Body weight 2022-08-16 21:29:00 55.475 kg Universi ty of [place] [facility] BMI 2022-08-16 21:29:00 23.11 kg/m2 Universi ty of [facility] Branch Systolic blood 2022-08-12 20:22:00 115 mm[Hg] Univer sity of pressure [place] [facility] Diastolic blood 2022-08-12 20:22:00 78 mm[Hg] Unive rsity of pressure [facility] Heart rate 2022-08-12 20:22:00 67 /min Universi ty of [facility] Body temperature 2022-08-12 20:22:00 36.[address] [facility] Body height 2022-08-12 20:22:00 154.9 cm Universi ty of [place] [facility] [place] Body weight 2022-08-12 20:22:00 54.976 kg Universi ty of [place] [facility] BMI 2022-08-12 20:22:00 22.90 kg/m2 Universi ty of [place] [facility] Systolic blood 2022-08-11 23:55:00 114 mm[Hg] Univer sity of pressure [place] [facility] Diastolic blood 2022-08-11 23:55:00 69 mm[Hg] Unive rsity of pressure [place] [facility] [place] Heart rate 2022-08-11 23:55:00 67 /min Universi ty of [facility] Oxygen saturation in 2022-08-11 23:55:00 100 /min [facility] Arterial blood by [facility] Pulse oximetry Branch Respiratory rate 2022-08-11 23:35:00 13 /min Univ ersity of [facility] Body temperature 2022-08-11 23:04:00 36.39 [address] [address] [facility] Body height 2022-08-11 14:29:00 154.9 cm Universi ty of [place] [facility] Body weight 2022-08-11 14:29:00 53.615 kg Universi ty of [place] [facility] BMI 2022-08-11 14:29:00 22.33 kg/m2 Universi ty of [facility] Branch Systolic blood 2022-08-11 23:05:00 107 mm[Hg] Univer sity of pressure [place] [facility] Diastolic blood 2022-08-11 23:05:00 65 mm[Hg] Unive rsity of pressure [place] [facility] Heart rate 2022-08-11 23:05:00 88 /min Universi ty of [place] [facility] Oxygen saturation in 2022-08-11 23:05:00 96 /min University of Arterial blood by [facility] Pulse oximetry Branch Body temperature 2022-08-11 23:04:00 36.39 Bl[place] Univ ersity of [place] [facility] Respiratory rate 2022-08-11 21:27:00 16 /min Univ ersity of [place] [facility] Body height 2022-08-11 14:29:00 154.9 cm Universi ty of [place] [facility] Body weight 2022-08-11 14:29:00 53.615 kg Universi ty of [place] [facility] BMI 2022-08-11 14:29:00 22.33 kg/m2 Universi ty of [place] [facility] Systolic blood 2022-08-08 16:18:00 112 mm[Hg] Univer sity of pressure [place] [facility] Diastolic blood 2022-08-08 16:18:00 74 mm[Hg] Unive rsity of pressure [place] [facility] Heart rate 2022-08-08 16:18:00 76 /min Universi ty of [place] [facility] Body temperature 2022-08-08 16:18:00 36.67 Blanka Univ ersity of [place] [facility] Respiratory rate 2022-08-08 16:18:00 16 /min Univ ersity of [place] [facility] Body height 2022-08-08 16:18:00 154.9 cm Universi ty of [place] [facility] Body weight 2022-08-08 16:18:00 54.205 kg Universi ty of [place] [facility] BMI 2022-08-08 16:18:00 22.58 kg/m2 Universi ty of [place] [facility] Oxygen saturation in 2022-08-08 16:18:00 98 /min University of Arterial blood by [facility] Pulse oximetry Branch Systolic blood 2021-10-28 20:56:00 113 mm[Hg] Univer sity of pressure [place] [facility] Diastolic blood 2021-10-28 20:56:00 75 mm[Hg] Unive rsity of pressure [place] [facility] Heart rate 2021-10-28 20:56:00 92 /min Universi ty of [place] [facility] Body temperature 2021-10-28 20:56:00 36.83 Bl[place] Univ ersity of [place] [facility] Respiratory rate 2021-10-28 20:56:00 18 /min Univ ersity of [place] [facility] Body height 2021-10-28 20:56:00 154.9 cm Universi ty of [place] [facility] Body weight 2021-10-28 20:56:00 74.39 kg Universi ty of [place] [facility] BMI 2021-10-28 20:56:00 30.99 kg/m2 Universi ty of [place] [facility] Heart rate 2021-10-15 02:00:00 74 /min Universi ty of [place] [facility] Oxygen saturation in 2021-10-15 02:00:00 99 /min University of Arterial blood by [place] [employer] juany Pulse oximetry Branch Systolic blood 2021-10-15 01:15:00 111 mm[Hg] Univer sity of pressure [place] [facility] Diastolic blood 2021-10-15 01:15:00 65 mm[Hg] Unive rsity of pressure [place] [facility] Body temperature 2021-10-15 01:15:00 36.78 Bl[place] Univ ersity of [place] [facility] Respiratory rate 2021-10-15 01:15:00 18 /min Univ ersity of [place] [facility] Body weight 2021-10-15 00:49:00 68.04 kg Universi ty of [place] [facility] Systolic blood 2021-01-29 15:30:00 119 mm[Hg] Univer sity of pressure [place] [facility] Diastolic blood 2021-01-29 15:30:00 81 mm[Hg] Unive rsity of pressure [place] [facility] Heart rate 2021-01-29 15:30:00 65 /min Universi ty of [place] [facility] Respiratory rate 2021-01-29 15:30:00 17 /min Univ ersity of [place] [facility] Oxygen saturation in 2021-01-29 15:30:00 98 /min University of Arterial blood by [place] [employer] juany Pulse oximetry Branch Body temperature 2021-01-29 14:10:00 37.06 Blanka Univ ersity of [place] [facility] Body weight 2021-01-29 14:10:00 68.04 kg Universi ty of [place] [facility] Height Measured 2022-07-28 14:31:00 63.00 inches Body Temperature 2022-07-28 14:31:00 98.50 degrees Heart Rate 2022-07-28 14:31:00 77.00 /min Respiratory Rate 2022-07-28 14:31:00 BP Systolic 2022-07-28 14:31:00 106 mm[Hg] BP Diastolic 2022-07-28 14:31:00 74 mm[Hg] Weight Measured 2022-07-28 14:31:00 122.60 pounds Procedures Procedure Date / Time Performing Clinician Source Performed EXTERNAL PROVIDER RECORDS 2022-08-15 05:01:00 Doctor Unassigned, [facility] [place] [facility] US PELVIS LIMITED 2022-08-11 22:51:00 Adum, Lisset Longoria [facility] DILATION AND CURETTAGE 2022-08-11 21:47:00 Adum, Lisset Longoria [facility] COVID-19 (ID NOW RAPID 2022-08-11 20:13:00 Juany Burk [facility] TESTING) Medical Branch COVID-19 (ID NOW RAPID 2022-08-11 20:13:00 Juany Burk [facility] TESTING) Medical Branch LAB ONLY COVID 2022-08-11 20:13:00 Juany Burk [facility] INTERPRETATION [facility] US FIRST 2022-08-11 17:58:08 Kia Dailey [facility] TRIMESTER LESS THAN 14 Medical B ranch WEEKS WITH TRANSVAGINAL US FIRST 2022-08-11 17:58:08 Kia Dailey [facility] TRIMESTER LESS THAN 14 Medical B ranch WEEKS WITH TRANSVAGINAL ABORH CONFIRMATION (LAB 2022-08-11 16:12:[address] [facility] ONLY) [facility] Branch ABORH CONFIRMATION (LAB 2022-08-11 16:12:[address] [facility] ONLY) Medical Branch HB ABO GROUPING 2022-08-11 14:48:00 Kia Dailey [facility] HB ABO GROUPING 2022-08-11 14:48:00 Kia Dailey [facility] LIPASE 2022-08-11 14:42:00 Kia Dailey [facility] MAGNESIUM 2022-08-11 14:42:00 Kia Dailey Kimmy [facility] COMP. METABOLIC PANEL 2022-08-11 14:42:00 Kia Dailey [facility] ([id number]) [facility] TOTAL BETA HCG ASSAY 2022-08-11 14:42:00 Juany Burk [facility] CBC WITH DIFF 2022-08-11 14:42:00 Ashlie, K [facility] o [facility] URINALYSIS 2022-08-11 14:42:00 Juany Burk [facility] LIPASE 2022-08-11 14:42:00 Kia Dailey Kimmy [facility] MAGNESIUM 2022-08-11 14:42:00 Kia Dailey [facility] COMP. METABOLIC PANEL 2022-08-11 14:42:00 Kia Dailey [facility] ([id number]) [facility] TOTAL BETA HCG ASSAY 2022-08-11 14:42:00 Juany Burk [facility] CBC WITH DIFF 2022-08-11 14:42:00 Kia Dailey [facility] URINALYSIS 2022-08-11 14:42:00 Juany Burk [facility] CONSENT/REFUSAL FOR 2022-08-11 14:23:47 Doctor Heather [facility] DIAGNOSIS AND TREATMENT [place] [facility] CONSENT/REFUSAL FOR 2022-08-11 14:23:47 Doctor Unaluz [facility] DIAGNOSIS AND TREATMENT [place] [facility] US FIRST 2022-08-09 19:12:00 Arlyn Garber [facility] TRIMESTER LESS THAN 14 Medical B ranch WEEKS WITH TRANSVAGINAL POCT TEST 2022-08-08 00:00:00 Arlyn Garber [facility] DSU PRE-OP 2021-10-28 06:01:00 Doctor Heather [facility] Name [facility] POCT URINALYSIS W/O 2021-10-28 00:00:00 Lisset Calhoun [facility] SPECIFIC GRAVITY [facility] Branch CONSENT/REFUSAL FOR 2021-10-15 00:42:20 Doctor Heather [facility] DIAGNOSIS AND TREATMENT [place] Medical [place] POCT TEST 2021-01-29 16:14:00 José Miguel Lowery [facility] URINALYSIS 2021-01-29 16:11:00 Singer [facility] COMP. METABOLIC PANEL 2021-01-29 14:24:00 José Miguel Lowery [facility] ([id number]) Medical [place] CBC WITH DIFF 2021-01-29 14:24:00 Lowery [facility] NOTICE OF PRIVACY 2021-01-29 13:58:25 Doctor Unaulz, [facility] [place] [facility] NOTICE OF PRIVACY 2021-01-29 13:58:11 Doctor Unassjessica, [facility] [place] [facility] Plan of Care Planned Activity Planned Date Details Comments Source Goal Plan of Care Note [code = 21603-8] Goal Plan of Care Note [code = 84066-9] Goal Plan of Care Note [code = 36290-4] Goal Plan of Care Note [code = 50728-6] Goal Plan of Care Note [code = 65970-5] Goal Plan of Care Note [code = 03761-0] Goal Plan of Care Note [code = 87038-6] Encounters Start End Encounter Admission Attending Care Care Encounter Source Date/Time Date/Time Type Type Clinicians Facility Department ID 2023-04-24 2023-04-24 [place] [id number] Wai 15:32:18 15:32:18 0605 F Danny 2023-04-20 2023-04-20 Outpatient MAYI SEE [id number] 023 Wai 17:05:18 17:05:18 0601 F Danny 2023-03-06 2023-03-06 Outpatient R ARLYN GARBER [facility] [id number] [facility] 13:30:00 13:30:00 ARLYN GARBER [facility] 2022-09-05 2022-09-05 Outpatient R ARLYN GARBER [facility] [id number] Univers 15:00:00 15:40:27 XENIAARLYN ALEGRIA [facility] 2022-09-05 2022-09-05 Office Nidamaia [facility] 1.2.840.114 [id number] Univers 15:00:00 15:40:27 Visit Arlyn CROWLEY 350.1.13.10 it y [place] [id number] [address] 2022-09-03 2022-09-03 Nurse Arlen Madden 1.2.840.114 [id number] Univers 00:00:00 00:00:00 Triage KAYLEE 350.1.13.10 it y of [facility] 4.2.7.2.686 Oscar as [id number] [address] 2022-08-31 2022-08-31 Equipment Cleaner And Tester Barrie, Adc Lab Main [facility] 1.2.8 40.114 [id number] Univers 12:45:00 13:00:00 Visit Jcarlos Arlyn WILLIEBHAKTI 350.1.13. 10 it[place] of [place] [id number] Co dical [address] 2022-08-31 2022-08-31 Outpatient R NIDAMAIA ARLYN [facility] [id number] Univers 12:45:00 12:45:00 JCARLOSARLYN [facility] 2022-08-31 2022-08-31 Case Nidamaia [facility] 1.2.840.114 [id number] Univers 00:00:00 00:00:00 Management Arlyn CROWLEY 350.1.13.10 it[place] [id number] [address] 2022-08-16 2022-08-16 Outpatient R NIDAMAIA ARLYN [facility] [id number] Univers 16:30:00 16:59:16 JCARLOSYVONNEKELLY chow [facility] 2022-08-16 2022-08-16 [facility] 1.2.840.114 [id number] Univers 16:30:00 16:59:16 Visit Arlyn CROWLEY 350.1.13.10 it y [place] [id number] [facility] [address] 2022-08-15 2022-08-15 Outpatient R [facility] [id number] Univers 14:00:00 14:00:[address] [facility] 2022-08-15 2022-08-15 Orders Doctor DAVID 1.2.840.114 [id number] Univers 00:00:00 00:00:00 Only Unassigned, KAYLEE 350.1.13.10 ity of [place] [facility] 4.2.7.2.686 Oscar as [id number] [place] [address] [address] 2022-08-13 2022-08-13 Nurse DAVID Acevedo 1.2.840.114 [id number] Univers 00:00:00 00:00:00 Triage Mitchell PAGE 350.1.13.10 ity of [facility] 4.2.7.2.686 [place] as [id number] [facility] [address] 2022-08-12 2022-08-12 Outpatient R NIDAARLYN CARVALHO [facility] [id number] Univers 15:15:00 15:59:51 NIDAARLYN CARVALHO [facility] 2022-08-12 2022-08-12 [facility] 1.2.840.114 [id number] Univers 15:15:00 15:59:51 Arlyn CROWLEY 350.1.13.10 i ty of [place] [id number] [address] 2022-08-11 2022-08-11 Outpatient X LJ [facility] ARAVIND [id number] Univers 09:31:00 19:05:00 LISSET chow [facility] 2022-08-11 2022-08-11 Emergency Kia Dailey [facility] 1.2.840. 114 [id number] Univers 09:31:00 19:05:00 Lisset Calhoun 350.1.13.10 it[place] of [place] [id number] [facility] [address] 2022-08-11 2022-08-11 Surgery Adzulay, [facility] 1.2.840.114 [id number] Univers 16:45:00 18:06:00 Lisset LINCOLN 350.1.13.10 it[place] [id number] [facility] [address] 2022-08-11 2022-08-11 Anest[facility] 1.2.840.114 9 [id number] Univers 17:03:00 18:00:00 Event Roger LINCOLN 350.1.13.10 it[place] [id number] [facility] [address] 2022-08-11 2022-08-11 Telephone [facility] 1.2.840.11 4 [id number] Univers 00:00:00 00:00:00 Arlyn CROWLEY 350.1.13.10 it y [place] [id number] [facility] [address] 2022-08-10 2022-08-10 Emergency EM Lorenzo Mcmahan [facility] DAMIAN LA00 [id number] [facility] 07:03:00 11:45:00 28 [facility] 2022-08-09 2022-08-09 Outpatient R ARLYN GARBER [facility] [id number] Univers 13:30:00 23:59:00 [address] ity of [facility] 2022-08-09 2022-08-09 [facility] 1.2.840.114 [id number] Univers 13:30:00 23:59:00 Encounter Arlyn LINCOLN 350.1.13.10 it[place] [id number] [facility] [address] 2022-08-09 2022-08-09 Case [facility] 1.2.840.114 [id number] Univers 00:00:00 00:00:00 Management Arlyn CROWLEY 350.1.13.10 ity of [place]S 4.2.7.2.686 [facility] [id number] [address] 2022-08-09 2022-08-09 Telephone KAVITA Garber 1.2.840.11 4 [id number] Univers 00:00:00 00:00:00 Arlyn CROWLEY 350.1.13.10 it y [place] [id number] [address] 2022-08-08 2022-08-08 Initial [facility] 1.2.840.114 [id number] Univers 11:00:00 11:37:42 Arlyn CROWLEY 350.1.13.10 i ty of Visit WOMEN'S 4.2.7.2.686 [facility] [id number] [address] 2022-08-08 2022-08-08 Outpatient R JCARLOS ARLYN [facility] [id number] Univers 11:00:00 11:37:42 JCARLOSYVONNEKELLY shashi [facility] 2022-08-05 2022-08-05 Outpatient R ARLYN GARBER [facility] [id number] Univers 09:30:00 09:30:00 NIDAYVONNE CARVALHOKELLY shashi [facility] 2022-07-28 2022-07-28 Outpatient [id number] 00:00:00 00:00:00 Visit [id number] 2021-11-25 2021-11-25 Outpatient GUANAKITO TEJEDA [facility] [id number] Univers 16:00:00 16:00:00 ity [facility] 2021-11-11 2021-11-11 Outpatient GUANAKITO TEJEDA [facility] [id number] Univers 15:45:00 15:45:00 ity [facility] 2021-11-032021-11-03 [facility] [id number] Univers 16:40:00 16:40:00 ALEX geraldo [facility] 2021-10-28 2021-10-28 Initial Guanakito Fox [facility] 1.2.840.114 [id number] Univers 14:39:23 16:29:30 Lj, Lisset LINCOLN 350.1.13.10 ity of Visit [place] 4.2.7.2.686 [facility] [id number] Co dical [address] 2021-10-28 2021-10-28 Outpatient R LJ [facility] [id number] Univers 14:30:00 16:29:30 LISSET shashi [facility] 2021-10-28 2021-10-28 Orders Doctor DAVID 1.2.840.114 [id number] Univers 00:00:00 00:00:00 Only Unassigned, KAYLEE 350.1.13.10 ity of [place] [facility] 4.2.7.2.686 Oscar [id number] [facility] [address] 2021-10-14 2021-10-14 Outpatient X GUANAKITO FOX [facility] ARAVIND [id number] Univers 18:50:00 20:22:00 ity [facility] 2021-10-14 2021-10-14 Emergency Guanakito Fox [facility] 1.2.840.114 [id number] Univers 18:50:00 20:22:00 Kev LINCOLN 350.1.13.10 i ty of [place] 4.2.7.2.686 [facility] [id number] [place] [address] 2021-01-29 2021-01-[address] [facility] 1.2.124.622 [id number] Univers 08:04:00 11:39:00 José Miguel Lincoln 350.1.13.10 i ty of [place] 4.2.7.2.686 [facility] [id number] [place] [address] [place] 2021-01-29 2021-01-29 Emergency X [facility] ERT [id number] Univers 08:04:00 08:04:00 JOSÉ MIGUEL [facility] Results Test Description Test Time Test Comments Results Result Comments Source ABORH Confirmation (Lab Only) 2022-08-11 17:32:45 Test Item Value Reference Range Interpretation Comme nts ABO & RH (test code = 20) O Positive Pe rformed at [facility] Laboratory Services - [facility] Blood [address] [place] [id number] Free: [phone] A No. [id number] [facility] Confirm[facility] (Lab Only)2022-08-11 17:32:45 Test Item Value Reference Range Interpretation Comments ABO & RH (test code O Positive Performe d at [facility] = 20) Laboratory Serv [facility] Blood Bank[address] [place], [place] [address]Toll Free: [phone] A No. [id number] [facility]2022-08-11 16:07:11 Test Item Value Reference Range Interpretation Comments BETA HCG (test See_Comment [Automated m essage] code = The system [employer](INOR) 8861844185) generated this result transmit blayne reference range : Non- fe male and male patien ts: <5 mIU/mL. The reference range was not used to interpret this result as normal/abnormal . TRUNG (test code Gestational Age ? ? = TRUNG) ?Range (mIU/mL) 1-10 ?Weeks ?53-02124306-91 Weeks ?65734-90375659-92 Weeks ?9399-99659803-14 Weeks ?7927-919849 Biotin has been reported to cause a negative bias, interpret results relative to patient's use of biotin. [facility] (QUANTITATIVE)2022-08-11 16:07:11 Test Item Value Reference Range Interpretation Comments BETA HCG (test See_Comment [Automated m essage] code = The system [employer](INOR) 2449991222) generated this result transmit blayne reference range : Non- fe male and male patien ts: <5 mIU/mL. The reference range was not used to interpret this result as normal/abnormal . TRUNG (test code Gestational Age ? ? = TRUNG) ?Range (mIU/mL) 1-10 ?Weeks ?06-23305226-88 Weeks ?62161-69737801-00 Weeks ?0235-36078947-25 Weeks ?1968-377251 Biotin has been reported to cause a negative bias, interpret results relative to patient's use of biotin. [facility] - ONCE [id number] 15:46:54 Test Item Value Reference Range Interpretation Comments ABO & RH (test code O Positive Performe d at [facility] = 20) Laboratory [facility] [address] [place], [place] [address]Toll Free: [phone] A No. [id number] IAT (test code = Negative Performed a t [facility] 1185) Laboratory [facility] [address] [place], [place] [address]Toll Free: [phone] A No. [id number] [facility] - ONCE [id number] 15:46:54 Test Item Value Reference Range Interpretation Comments ABO & RH (test code O Positive Performe d at [facility] = 20) Laboratory [facility] [address] [place], [place] [address]Toll Free: [phone] A No. [id number] IAT (test code = Negative Performed a t [facility] 1185) Laboratory [facility] [address] [place], [place] [address]Toll Free: [phone] A No. [id number] [facility]. METABOLIC PANEL (32434)2022-08-11 15:22:15 Test Item Value Reference Range Interpretation Comments NA (test code = 138 mmol/L 135-145 4347353647) K (test code = 3.8 mmol/L 3.5-5 3761218558) CL (test code = 104 mmol/L 98-108 4358957503) CO2 TOTAL (test code = 23 mmol/L 23-31 4006191560) AGAP (test code = 2-16 1903750449) BUN (test code = 11 mg/dL 7-23 2228023234) GLUCOSE (test code = 109 mg/dL 70-110 3330877698) CREATININE (test code = 0.62 mg/dL 0.5-1.04 7783877959) TOTAL BILI (test code = 1.0 mg/dL 0.1-1.0 7464926179) CALCIUM (test code = 9.6 mg/dL 8.6-10.6 3054891407) T PROTEIN (test code = 6.7 g/dL 6.3-8.2 1974028205) ALBUMIN (test code = 4.4 g/dL 3.5-5 4394298649) ALK PHOS (test code = 37 U/L 34-122 3254736963) ALTv (test code = 80 U/L 5-35 H 1742-6) AST(SGOT) (test code = 98 U/L 13-40 H 3021810110) eGFR (test code = mL/min/1.73m2 9826960592) TRUNG (test code = TRUNG) Association of [...] tests). Lab Interpretation Abnormal (test code = 93079-3) [facility]2022-[facility]-22 15:22:15 Test Item Value Reference Range Interpretation Comments MAGNESIUM (test code = 3261829961) 2.0 mg/dL 1.7-2.4 Lab Interpretation (test code = Normal 97710-4) [facility] METABOLIC PANEL (72930)2022-08-11 15:22:15 Test Item Value Reference Range Interpretation Comments NA (test code = 138 mmol/L 135-145 6392717149) K (test code = 3.8 mmol/L 3.5-5 5547510383) CL (test code = 104 mmol/L 98-108 6580685107) CO2 TOTAL (test code = 23 mmol/L 23-31 3120538000) AGAP (test code = 2-16 1837389935) BUN (test code = 11 mg/dL 7-23 5945246597) GLUCOSE (test code = 109 mg/dL 70-110 8621864238) CREATININE (test code = 0.62 mg/dL 0.5-1.04 5244018693) TOTAL BILI (test code = 1.0 mg/dL 0.1-1.3 3316683587) CALCIUM (test code = 9.6 mg/dL 8.6-10.6 2005244207) T PROTEIN (test code = 6.7 g/dL 6.3-8.2 6790974960) ALBUMIN (test code = 4.4 g/dL 3.5-5 7484034616) ALK PHOS (test code = 37 U/L 34-122 1559372361) ALTv (test code = 80 U/L 5-35 H 1742-6) AST(SGOT) (test code = 98 U/L 13-40 H 8497729336) eGFR (test code = mL/min/1.73m2 1975294035) TRUNG (test code = TRUNG) Association of [...] tests). Lab Interpretation Abnormal (test code = 02356-0) [facility]2022-[facility]-22 15:22:15 Test Item Value Reference Range Interpretation Comments MAGNESIUM (test code = 1490885482) 2.0 mg/dL 1.7-2.4 Lab Interpretation (test code = Normal 66923-0) [facility]2022-[facility]-22 15:21:55 Test Item Value Reference Range Interpretation Comments LIPASE (test code = 7916617672) 51 U/L 0-220 Lab Interpretation (test code = Normal 14789-3) [facility]2022-[facility]-22 15:21:55 Test Item Value Reference Range Interpretation Comments LIPASE (test code = 7652599762) 51 U/L 0-220 Lab Interpretation (test code = Normal 10759-8) [facility] WITH [id number] 15:04:09 Test Item Value Reference Range Interpretation [...] RDW-SD (test code = 42.2 fL 39-49.9 87252-2) RDW-CV (test code = 13.5 % 12-15.5 788-0) PLT (test code = See_Comment H [Automated 777-3) message] The sy stem which generated this result transmitted reference range : 166 - 358 10*3/ ?L. The reference r brenna was not used to interpret this result as normal/abnormal . MPV (test code = 10.1 fL 9.5-12.9 90785-6) NRBC/100 WBC (test See_Comment [Automat ed code = 9496494602) message] The system which generated this result transmitted reference range : 0.0 - 10.0 /100 WBCs. The refer ence range was not u sed to interpret th is result as normal/abnormal . NRBC x10^3 (test code See_Comment [Auto mated = 2007367682) message] The s ystem which generated this result transmitted reference range : 10*3/?L. The reference range was not used to interpret this result as normal/abnormal . GRAN MAT (NEUT) % 77.4 % (test code = 770-8) IMM GRAN % (test code 0.40 % = 7013896202) LYMPH % (test code = 14.9 % 736-9) MONO % (test code = 6.8 % 5905-5) EOS % (test code = 0.3 % 713-8) BASO % (test code = 0.2 % 706-2) GRAN MAT x10^3(ANC) 8.79 10*3/uL 1.88-7.09 H (test code = 2638508641) IMM GRAN x10^3 (test 0.04 10*3/uL 0-0.06 code = 3457468738) LYMPH x10^3 (test code 1.69 10*3/uL 1.32-3.29 = 731-0) MONO x10^3 (test code 0.77 10*3/uL 0.33-0.92 = 742-7) EOS x10^3 (test code = 0.03 10*3/uL 0.03-0.39 711-2) BASO x10^3 (test code 0.01-0.07 = 704-7) Lab Interpretation Abnormal (test code = 42563-1) [facility] WITH [id number] 15:04:09 Test Item Value Reference Range Interpretation Comments WBC (test code = See_Comment H [Automated 4990-2) message] The sy stem which generated this result transmitted reference range : 4.30 - 11.10 10*3/?L. The reference range was not used to interpret this result as normal/abnormal . RBC (test code = See_Comment [Automated 449-8) message] The sy stem which generated this [...] RDW-SD (test code = 42.2 fL 39-49.9 27137-5) RDW-CV (test code = 13.5 % 12-15.5 788-0) PLT (test code = See_Comment H [Automated 777-3) message] The sy stem which generated this result transmitted reference range : 166 - 358 10*3/ ?L. The reference r brenna was not used to interpret this result as normal/abnormal . MPV (test code = 10.1 fL 9.5-12.9 06807-9) NRBC/100 WBC (test See_Comment [Automat ed code = 5925912436) message] The system which generated this result transmitted reference range : 0.0 - 10.0 /100 WBCs. The refer ence range was not u sed to interpret th is result as normal/abnormal . NRBC x10^3 (test code See_Comment [Auto mated = 7239704681) message] The s ystem which generated this result transmitted reference range : 10*3/?L. The reference range was not used to interpret this result as normal/abnormal . GRAN MAT (NEUT) % 77.4 % (test code = 770-8) IMM GRAN % (test code 0.40 % = 7175927722) LYMPH % (test code = 14.9 % 736-9) MONO % (test code = 6.8 % 5905-5) EOS % (test code = 0.3 % 713-8) BASO % (test code = 0.2 % 706-2) GRAN MAT x10^3(ANC) 8.79 10*3/uL 1.88-7.09 H (test code = 6842284564) IMM GRAN x10^3 (test 0.04 10*3/uL 0-0.06 code = 9352242858) LYMPH x10^3 (test code 1.69 10*3/uL 1.32-3.29 = 731-0) MONO x10^3 (test code 0.77 10*3/uL 0.33-0.92 = 742-7) EOS x10^3 (test code = 0.03 10*3/uL 0.03-0.39 711-2) BASO x10^3 (test code 0.01-0.07 = 704-7) Lab Interpretation Abnormal (test code = 32667-9) [facility]- DUP AB/PEL/SC [id number] 09:21:00 [facility] 1995 Sex: F Name: AISLINN BURK [facility] : 1995 Age/S: 26 / F [address] Unit #: [id number] Loc: [place] [address] Phys: Lorenzo Mcmahan Acct: [id number] Dis Date: Status: REG ER PHONE #: [phone] Exam Date: 08/10/2022907 FAX #: Reason: PREG, BLEEDING EXAMS: CPT: [id number] DUP AB/PEL /SC COMP 44112 History: pain/bleeding Comparison: None at this time Location: [facility] Transabdominal and endovaginal sonography of the pelvis [...] heartbeat can be identified. According to ultrasound sizecriteria, the estimated gestational age would be approximately 8 weeks 1 day. These findings are suspicious for intrauterine demise. There is a subchorionic hemorrhage. at 0921 Reported and signed by: Milton Talavera M.D.PAGE 1 Signed Report (CONTINUED) Name: AISLINN BURK [facility] : 1995 Age/S: 26 / [address] Unit #: [id number] Loc: [place] [address] Phys: Lorenzo Mcmahan DO Acct: [id number] Date: Status: REG ER PHONE #: [phone] Exam Date: 08/10/2022 0908 FAX #: Reason: PREG, BLEEDING EXAMS: CPT: [id number] DUP AB/PEL/SC COMP 93881 (Continued) CC: Leroy Cool MD; Lorenzo Mcmahan DO Technologist: Hallie Garcia [facility] Date/Time: 08/10/2022 (920) t.SDR.PMT PAGE 2 Signed Report Name: AISLINN BURK [facility] : 1995 Age/S: 26 / F [address] Unit #: [id number] Loc: [place] [address] Phys: Lorenzo Mcmahan DO Acct: [id number] Dis Date: Status: REG ER PHONE #:[phone] Exam Date: 08/10/2022 0908 FAX #: Reason: PREG, BLEEDING EXAMS: CPT: [id number] DUP AB/PEL/SC COMP 19101 (Continued) Orig Print D/T: S: 08/10/2022 (09) Probe: PAGE 3 Signed Report- US PREG 1ST [id number] 09:21:00 [facility] : 1995 Sex: F Name: AISLINN BURK : 1995 Age/S: 26 / F [address] Unit #: [id number] Loc: [place] [address] Phys: Lorenzo Mcmahan DO Acct: [id number] Dis Date: Status: REG ER PHONE #: [phone] Exam Date: 08/10/2022906 FAX #: Reason: pain/bleeding EXAMS: CPT: [id number] US PREG 1ST TRIMTR 80408 History: pain/bleeding Comparison: None at this time Location: [facility] Transabdominal and endovaginal sonography of the pelvis [...] in size. No free fluid is identified. Noadnexal masses are seen. Spectral Doppler and color flow Doppler sonography of the ovaries was performed. There is arterial blood flow identified within both ovaries. IMPRESSION: A single intrauterine p regnancy is identified. However, no heartbeat can be identified. According to ultrasound size criteria, the estimated gestational age would be approximately 8 weeks 1 day. These findings are suspicious for intrauterine demise. There is a subchorionic hemorrhage. at 0921 Reported and signed by: Milton Talavera M.D. PAGE 1 Signed Report (CONTINUED) Name: AISLINN BURK : 1995 Age/S: 26 / F [address] Unit #: [id number] Loc: [place] [address] Phys: Lorenzo Mcmahan DO Acct: [id number] Dis Date: Status: REG ER PHONE #: [phone] Exam Date: 08/10/2022906 FAX #: Reason: pain/bleeding EXAMS: CPT: [id number] US PREG 1ST TRIMTR 53928 (Continued) CC: Lorenzo Mcmahan DO Technologist: Hallie Garcia Trnscb Date/Time: 08/10/2022 (920) IfrahPMT PAGE 2 Signed Report Name: AISLINN BURK : 1995 Age/S: 26 / F [address] Unit #: [id number] Loc: [place] [address]Nnbo: Lorenzo Mcmahan DO Acct: [id number] Dis Date: Status: REG ER PHONE #: [phone] Exam Date: 08/10/2022 09 FAX #: Reason: pain/bleeding EXAMS: CPT: [id number] US PREG 1ST TRIMTR 24117 (Continued) Orig Print D/T: S: 08/10/2022 (924) Probe: PAGE 3 Signed Report- US TRANSVAGINAL NON [id number] 09:21:00 [facility] : 1995 Sex: F Name: [place] : 1995 Age/S: 26 / F [address] Unit #: [id number]: [place] [address] Phys: Lorenzo Mcmahan DO Acct: [id number] Dis Date: Status: REG ER PHONE #: [phone] Exam Date: 08/10/2022907 FAX #: Reason: pain/bleeding EXAMS: CPT: [id number] [place] [address] History: pain/bleeding Comparison: None at this time [...] cm in size. No free fluid is identified.No adnexal masses are seen. Spectral Doppler and [...] 1 Signed Report (CONTINUED) Name: AISLINN BURK [place] : 1995 Age/S: 26/ F [address] Unit #: [id number] Loc: [place] [address] Phys: Lorenzo Mcmahan DO Acct: [id number] Dis Date: Status: REG ER PHONE #: [phone] Exam Date: 08/10/2022907 FAX #: Reason: pain/ble eding EXAMS: CPT: [id number] [place] [address] (Continued) CC: Lorenzo Mcmahan DO Technologist: Hallie Garcia Trncob Date/Time: 08/10/2022 (920) Veronica PAGE 2 Signed Report Name: [facility] [place] : 1995 Age/S: 26 / F [address] Unit #: [id number] Loc: [place] [address] Phys: Lorenzo Mcmahan DO Acct: [id number] Dis Date: Status: REG ER PHONE #: [phone] ExamDate: 08/10/2022907 FAX #: Reason: pain/bleeding EXAMS: CPT: [id number] [place] [address] (Continued) Orig Print D/T: S: 08/10/2022 (0925) Probe: [id number] PAGE 3 Signed ReportHCG [id number] 08:39:00 Test Item Value Reference Range Interpretation Comments HCG SERUM (test 82953 mi-IU/ML 0-6 H 0 - 6 NOT > 6 code = HCG) SUGGESTIVE OF E KATIE RISES TWO FOLD EVERY 2 DA YS; SUGGEST RECONFI RMING AFTER 2 DAYS. 150,000-200,[address] TRIMESTER 10,00 0 - 50,000 2ND & 3R D TRIMESTER UA RFLX MICR CULT IF [id number] 08:26:00 Test Item Value Reference Range Interpretation [...] Indication for culture: RiskForSepsis-no oth srcBASIC METABOLIC [id number] 08:10:00 Test Item Value Reference Range Interpretation [...] CA) 10.0 MG/DL 8.5-10.1 N HEPATIC FUNCTION [id number] 08:10:00 Test Item Value Reference Range Interpretation [...] 34 Unit/L 45-117 L code = ALKP) [id number] 08:10:00 Test Item Value Reference Range Interpretation Comments LIPASE (test code = LIP) 29 Unit/L 114-286 L CBC W/AUTO [id number] 07:59:00 Test Item Value Reference Range Interpretation [...] code NO DIFF/SCN CRITERIA = MDIFF) POCT [id number] 16:30:00 Test Item Value Reference Range Interpretation Comments POCT PREG (test code = 1605) Positive On board controls acceptable with C Yes Line (test code = 3574) POCT PREG LOT # (test code = 3575) POCT PREG TEST DATE (test code = 3576) [id number] 09:51:52SPECIMEN NUMBER: [id number] CULTURE, URINE SPECIMEN NUMBER: [id number] SPECIMEN COMMENT: URINE SOURCE:URINE REPORT STATUS: FINAL FINAL REPORT: 07/30/2022 10-50,000 CFU/ML UROGENITAL YANNI PRESENT NO COMMON PATHOGENSCBC W/AUTO DIFF WITH [id number] 08:02:01 Test Item Value Reference Range Interpretation [...] RBCS 0.00 K/UL 0.00-0.11 (test code = 27802) HCG, [id number] 06:09:47 Test Item Value Reference Range Interpretation Comments HCG, QUANTITATIVE 41960 MIU/ML SEE BELOW E XPECTED (test code = 2506) VALUES FO R HCG GST.AGE UNITS RANGE GST. AGE UNITS RANGE3 WEEKS GA U/ML 6-71 10 WEEKS M IU/ML [id number] [...] . . . . . . MIU/ML [id number] REEMA FEMALES . . . . . . . . . . . . MIU/M L <=7 UNLESS OTHERWIS E INDICATED, ALL TESTING PERFORM [facility] [place] [place] [address] DENZEL VALDES DIRECTOR: Latasha QUIROGAIA NUMBER [id number] CAP ACCREDITATION N O. [id number] POCT URINALYSIS W/O SPECIFIC [id number] 21:04:00 Test Item Value Reference Range Interpretation [...] code = 3257) N/A Negative - Negative [facility] 16:50:35 Test Item Value Reference Range Interpretation Comments APPEARANCE (test code = Hazy Clear A 1983077935) COLOR (test code = Yellow Yellow 5098102067) PH (test code = 4.8-8.0 1995389421) SP GRAVITY (test code = 1.003-1.030 0355248378) GLU U QUAL (test code = Normal Normal 9343877482) BLOOD (test code = Negative Negative 3966498658) KETONES (test code = 20 mg/dL Negative A 4889187428) PROTEIN (test code = Negative Negative 2887-8) UROBILIN (test code = 2.0 mg/dL Normal A 6751248715) BILIRUBIN (test code = Negative Negative 7036747514) NITRITE (test code = Negative Negative 3229946035) LEUK KASHMIR (test code = 25/uL Negative A 6485247131) RBC/HPF (test code = See_Comment [Autom ated message] 0813996806) The system [employer](IN[employer]) generated this result transmit blayne reference range : 0 - 3 HPF. The refe rence range was not u sed to interpret th is result as normal/abnormal . WBC/HPF (test code = See_Comment H [Autom ated message] 6622013296) The system [employer]) generated this result transmit blayne reference range : 0 - 5 HPF. The refe rence range was not u sed to interpret th is result as normal/abnormal . BACTERIA (test code = Moderate Negative A 1759889256) MUCOUS (test code = Marked Negative LPF A 9126113473) SQ EPITH (test code = HPF 3709002616) Lab Interpretation (test Abnormal code = 73740-4) [facility] [id number] 16:14:00 Test Item Value Reference Range Interpretation Comments POCT PREG (test code = 1605) negative On board controls acceptable with present C Line (test code = 3574) POCT PREG LOT # (test code = 3575) [id number] POCT PREG TEST DATE (test 2022-09-19 code = 3576) Lab Interpretation (test code = Normal 90846-2) [facility]. METABOLIC PANEL (30113)2021-01-29 15:11:52 Test Item Value Reference Range Interpretation Comments NA (test code = 143 mmol/L 135-145 8296305869) K (test code = 3.2 mmol/L 3.5-5.0 L 8303848813) CL (test code = 102 mmol/L 98-108 9226832927) CO2 TOTAL (test code = 30 mmol/L 23-31 0297227082) AGAP (test code = 2-16 6631919972) BUN (test code = 15 mg/dL 7-23 8262451446) GLUCOSE (test code = 106 mg/dL 70-110 3965369898) CREATININE (test code = 0.81 mg/dL 0.50-1.04 4126199023) TOTAL BILI (test code = 0.9 mg/dL 0.1-1.0 7870595917) CALCIUM (test code = 9.6 mg/dL 8.6-10.6 9365179650) T PROTEIN (test code = 7.4 g/dL 6.3-8.2 8403437000) ALBUMIN (test code = 4.7 g/dL 3.5-5.0 6121177653) ALK PHOS (test code = 37 U/L 34-122 4342434458) ALTv (test code = 39 U/L 5-35 H 1742-6) AST(SGOT) (test code = 75 U/L 13-40 H 3895045627) eGFR Calculation mL/min/1.73m2 (Non-) (test code = 1102151620) eGFR Calculation mL/min/1.73m2 () (test code = 7220876055) TRUNG (test code = TRUNG) Association of [...] tests). Lab Interpretation Abnormal (test code = 26236-7) [facility] WITH [id number] 14:36:28 Test Item Value Reference Range Interpretation Comments WBC (test code = See_Comment [Automated message] 6690-2) The system [employer](IN[employer]) generated this result transmitted ref erence range: 4.30 - 1 1.10 10*3/?L. The re ference range was not u sed to interpret this result as normal/abnor mal. RBC (test code = See_Comment [Automated message] 789-8) The system [employer]) generated this result transmitted ref erence range: [...] RDW-SD (test code 39.2 fL 39.0-49.9 = 27428-1) RDW-CV (test code 12.9 % 12.0-15.5 = 788-0) PLT (test code = See_Comment [Automated message] 777-3) The system [employer]) generated this result transmitted ref erence range: 166 - 35 8 10*3/?L. The re ference range was not u sed to interpret this result as normal/abnor mal. MPV (test code = 10.5 fL 9.5-12.9 85966-9) NRBC/100 WBC (test See_Comment [Automat ed message] code = 0821481917) The syste m which generated this result transmitted ref erence range: 0.0 - 10 .0 /100 WBCs. The refer ence range was not u sed to interpret this result as normal/abnor mal. NRBC x10^3 (test <0.01 See_Comment [Automated message] code = 6707551619) The syste m which generated this result transmitted ref erence range: 10*3/?L. The reference range was not used to interpr et this result as normal/abnormal . GRAN MAT (NEUT) % 71.8 % (test code = 770-8) IMM GRAN % (test 0.40 % code = 0595161013) LYMPH % (test code 18.5 % = 736-9) MONO % (test code 7.8 % = 5905-5) EOS % (test code = 1.2 % 713-8) BASO % (test code 0.3 % = 706-2) GRAN MAT 6.81 10*3/uL 1.88-7.09 x10^3(ANC) (test code = 0804125276) IMM GRAN x10^3 0.04 10*3/uL 0.00-0.06 (test code = 1592582610) LYMPH x10^3 (test 1.76 10*3/uL 1.32-3.29 code = 731-0) MONO x10^3 (test 0.74 10*3/uL 0.33-0.92 code = 742-7) EOS x10^3 (test 0.11 10*3/uL 0.03-0.39 code = 711-2) BASO x10^3 (test 0.03 10*3/uL 0.01-0.07 code = 704-7) [facility] by RT-PCR (HIGH RISK) 2021-01-26 00:00:00 Test Item Value Reference Range Interpretation Comments SARS-CoV-2 INTERPRETATION NEGATIVE (test code = 09088) SOURCE (test code = 85907) NASOPHARYNGEAL SARS-CoV-2 (COVID-19) by RT-PCR (HIGH RISK)2021-01-26 00:00:00 Test Item Value Reference Range Interpretation Comments SARS-CoV-2 INTERPRETATION NEGATIVE (test code = 39055) SOURCE (test code = 23098) NASOPHARYNGEAL Notes Date/Time Note Provider Source 2022-08-10 07:26:00-00:00 [facility] ([facility]) EMERGENCY PROVIDER REPORT REPORT#:[id number] REPORT STATUS: Signed DATE:08/10/22 TIME:725 PATIENT: AISLINN BURK UNIT #: [id number] ROOM/BED: : 97 AGE: 26 SEX: F PCP PHYS: Yelitza Cool MD SERVICE AUTHOR: Lorenzo Mcmahan DO * [...] for the past 2 weeks. States her BUTTONER is at [facility]. Risk-Abd Pain F Under 40 )( Ectopic [...] Result Date Time Pulse Ox 100 08/10 720 B/P 122/73 08/10 720 B/P Mean 89 08/10 720 O2 Delivery Room air 08/10 720 Temp 97.6 08/10 720 Pulse 55 08/10 720 Resp 17 08/10 720 Last Documented: Result Date Time Pulse Ox 99 08/10 1145 B/P 108/62 08/10 1145 B/P Mean 77 08/10 1145 O2 Delivery Room air 08/10 1145 Temp 98.0 08/10 114 Pulse 95 08/10 [...] NL, Warm, Dry, Turgor NL Genitourinary General Dental Instrument Maker present Female Genitourinary Atraumatic, External genit chet [...] (Auto) (20.5 - 51.1 %) 3.9 L Vilas % (Auto) (1.7 - 9.3 %) 1.0 L Eos % (Auto) (0.0 - 6.0 %) 0.0 Baso % (Auto) (0.0 - 2.0 %) 0.1 Neut # (Auto) (1.8 - 7.6 K/mm3) 15.5 H Lymph # (Auto) (0.6 - 3.2 K/mm3) 0.6 Vilas # (Auto) (0.3 - 1.1 K/mm3) 0.2 L Eos # (Auto) (0.0 - 0.4 K/mm3) 0.0 Baso # (Auto) (0.0 - 0.1 K/mm3) 0.0 Abs Immat Gran (auto) (0.00 - 0.03 x10 3/uL) 0 .06 H Add Manual Diff (CRITERIA DIFF/SCN) NO Immature Gran % (0.0 - 5.0 %) 0.4 Nucleated RBC % (0.0 - 1.0 /100WBC%) 0.0 Miscellaneous Maternal Serum HCG (0 - 6 mi-IU/ML) 26088 H Urines Urine Color (YEL/STRAW discript) STRAW Urine Appearance (CLEAR discript) TURBID H Urine pH (5.0 - 7.0 pH UNITS) 6.0 Ur Specific Pollock (1.005 - 1.030 SG) >=1.030 H Urine [...] 0849 Report Impression - Status: SIGNED Entered: 08/10/2022924 IMPRESSION: A single intrauterine is identified. H owever, no heartbeat can be identified. According to ultras ound size criteria, the estimated gestational age would be approxima tely 8 weeks 1 day. These findings are suspicious for intrauterine f etal demise. There is a subchorionic hemorrhage. Impression By: Veronica Talavera M.D . Re-Evaluation [facility] )( Re-Evaluation/Progress #1 Text/Dict Note Patient states [...] large subchorionic hemorrhage. Patient has follow-up with BUTTONER. Time of Re-Eval 1005 )( Re-Eval Status [...] 122/73 08/10 0720 B/P Mean 89 08/10 0720 O2 Delivery Room air 08/10 720 Temp 97.6 08/10 720 Pulse 55 08/10 0720 Resp 17 08/10 [...] (ZOFRAN ODT) 4 MG PO Q6H PRN WV N NAUSEA/VOMITING #20 TABS Patient Instructions ED Anxiety Reaction, ED Mis carriage, Incomplete, Understanding Miscarriage: Emotions Additional Instructions Follow-up with your BUTTONER physician in 1 to 2 d ays Electronically Signed by Lorenzo Mcmahan DO on at 0917 RPT #: [id number] END OF REPORT"
[2023-07-04 07:44] LABS: Absolute Lymphocytes (CBC) 2.1 K/uL (0.7-4.9); Hematocrit 31.1 % (36.0-45.0); Lymphocytes % 17.1 % (15.3-44.8); MPV 7.9 fL (7.6-11.3); Platelets 247 thou/uL (152-406); RBC Red Blood Cell Count 3.45 M/uL (3.86-4.86)
[2023-07-04] MEDS ORDERED: NA CHLORIDE 0.9% 1,000 ML ONE (07:46)
[2023-07-04 07:50] LABS: Specific Gravity > 1.030 (1.005-1.030); Urine Bacteria None Seen /HPF (<20); Urine Bilirubin NEGATIVE (Negative); Urine Blood Negative (Negative); Urine Clarity Clear (Clear); Urine Color Light-Yellow (Yellow); Urine Glucose NEGATIVE (Negative); Urine Mucus 1+ /HPF (None Seen); Urine Protein TRACE (Negative); Urine RBC <5 /HPF (None Seen); Urine Urobilinogen Normal (Normal)
[2023-07-04 07:52] LABS: Protime INR 1.07
[2023-07-04 07:55] LABS: Barbiturates NEGATIVE (NEGATIVE); Benzodiazepines POSITIVE (NEGATIVE); Cocaine NEGATIVE (NEGATIVE); METHAMPHETAM NEGATIVE (NEGATIVE); Methadone NEGATIVE (NEGATIVE); Opiates NEGATIVE (NEGATIVE); Phencyclidine NEGATIVE (NEGATIVE); THC Cannibis POSITIVE (NEGATIVE)
[2023-07-04 08:01] LABS: ALT/SGPT 14 U/L (13-56); AST/SGOT 7 U/L (15-37); Albumin 2.7 g/dL (3.4-5.0); Alkaline Phosphatase 31 U/L (45-117); BUN Blood Urea Nitrogen 9 mg/dL (7-18); Bicarbonate 25 mEq/L (21-32); Bilirubin Total 0.2 mg/dL (0.2-1.0); Glomerular Filtration Rate 132 ml/min (=/>90); Glucose Level 89 mg/dL (74-106); Potassium 3.2 mEq/L (3.5-5.1); Protein, Total 5.4 g/dL (6.4-8.2); Sodium Level 144 mEq/L (136-145)
[2023-07-04 08:09] LABS: Bilirubin Direct < 0.1 mg/dL (0-0.2); Bilirubin Indirect, Calculated ND mg/dL (0.2-0.8)
--- NOTE | 2023-07-04 08:43 | EDPHYS ---
Physician Documentation [facility] Name: Cely Clancy Age: 27 yrs Sex: Female : 1995 Arrival Date: 07/04/2023 Time: 06:43 Bed 4 Private MD: ED Physician Javier Terrell HPI: 07/04 08:36 This 27 yrs old Female presents to ER via EMS with complaints of Possible Overdose. rn 08:36 The patient presents to the emergency department after a known overdose, that was rn intentional. Context: Method: the patient has a confirmed or suspected ingestion, Time: yesterday, at 16:00, Extent: the OD/poisoning occurred at at home, and was witnessed no one, Previous OD/poisoning history: yes. Severity of symptoms: At their worst the symptoms were mild in the emergency department the symptoms are unchanged. The patient has experienced a previous episode. The patient has not recently seen a physician. Pt reports yesterday at 1600 took approx 8-10 tylenol pills, intentional to harm herself, was overwhelmed, no other drugs or ETOH. Reports mild abd discomfort and nausea. No fever. . Historical: - Allergies: 06:56 No Known Allergies; kl - PMHx: 06:56 Anxiety; depressive disorder; PCOS; post depression; kl - PSHx: 06:56 section; kl - Immunization history:: Adult Immunizations not immunized. - Social history:: Smoking status: Patient denies any tobacco usage or history of. - Family history:: not pertinent. - Hospitalizations: : No recent hospitalization is reported. ROS: 08:36 Constitutional: Negative for fever, chills, and weight loss, Eyes: Negative for injury, rn pain, redness, and discharge, Neck: Negative for injury, pain, and swelling, Cardiovascular: Negative for chest pain, palpitations, and edema, Respiratory: Negative for shortness of breath, cough, wheezing, and pleuritic chest pain, Abdomen/GI: + nausea MS/Extremity: Negative for injury and deformity, Skin: Negative for injury, rash, and discoloration, Neuro: Negative for headache, weakness, numbness, tingling, and seizure. Exam: 08:36 Constitutional: This is a well developed, well nourished patient who is awake, alert, rn and in no acute distress. Head/Face: Normocephalic, atraumatic. Cardiovascular: Regular rate and rhythm. No pulse deficits. Respiratory: No increased work of breathing, no retractions or nasal flaring. Abdomen/GI: Soft, non-tender Skin: Warm, dry MS/ Extremity: Pulses equal, no cyanosis. Neuro: Awake and alert, GCS 15, oriented to person, place, time, and situation. Vital Signs: 06:52 BP 128 / 93; Pulse 68; Resp 18; Temp 98.4(O); Pulse Ox 100% on R/A; Weight 60.78 kg kl (M); Height 5 ft. 1 in. ; 08:36 BP 131 / 97; Pulse 64; Resp 18; Pulse Ox 98% on R/A; ph 09:30 BP 123 / 92; Pulse 59; Resp 18; Pulse Ox 99% on R/A; ph 10:30 BP 122 / 87; Pulse 71; Resp 18; Pulse Ox 99% on R/A; ph 11:30 BP 124 / 86; Pulse 82; Resp 19; Pulse Ox 97% on R/A; ph 12:30 BP 110 / 81; Pulse 76; Resp 20; Pulse Ox 98% on R/A; ph 13:13 BP 124 / 95; Pulse 81; Resp 18; Temp 98.1; Pulse Ox 100% on R/A; ph 14:30 BP 121 / 89; Pulse 78; Resp 18; Pulse Ox 99% on R/A; ph 06:52 Body Mass Index 25.32 (60.78 kg, 154.94 cm) kl MDM: 06:58 Patient medically screened. rn 08:23 ED course: Poison control center contacted with elevated tylenol level, is above rn treatment threshold for acetaminophen toxicity, recommend treatment. . 08:36 Differential diagnosis: Ingestion/exposure to tylenol. Data reviewed: vital signs, rn nurses notes, lab test result(s), and as a result, I will admit patient. Consideration of Admission/Observation Patient was admitted/placed on observation. Escalation of care including admission/observation considered. Management of patient was discussed with the following: Hospitalist: . Counseling: I had a detailed discussion with the patient and/or guardian regarding: the historical points, exam findings, and any diagnostic results supporting the discharge/admit diagnosis, lab results, the need for further work-up and treatment in the [facility]. 07/04 07:13 Order name: Acetaminophen; Complete Time: 08:17 rn 07/04 07:13 Order name: Basic Metabolic Panel; Complete Time: 08:17 rn 07/04 07:13 Order name: CBC with Diff; Complete Time: 08:17 rn 07/04 07:13 Order name: ETOH Level; Complete Time: 08:17 rn 07/04 07:13 Order name: Hepatic Function; Complete Time: 08:17 rn 07/04 07:13 Order name: PT-INR; Complete Time: 08:17 rn 07/04 07:13 Order name: Test, Urine; Complete Time: 08:17 rn 07/04 07:13 Order name: Ptt, Activated; Complete Time: 08:17 rn 07/04 07:13 Order name: Salicylate; Complete Time: 09:33 rn 07/04 07:13 Order name: Urinalysis w/ reflexes; Complete Time: 08:17 rn 07/04 07:13 Order name: Urine Drug Screen; Complete Time: 08:17 rn 07/04 10:35 Order name: Phosphorus; Complete Time: 11:49 EDMS 07/04 10:35 Order name: T4 Free; Complete Time: 11:49 EDMS 07/04 10:35 Order name: Magnesium; Complete Time: 11:49 EDMS 07/04 10:35 Order name: Thyroid Stimulating Hormone; Complete Time: 11:49 EDMS 07/04 11:45 Order name: CT; Complete Time: 11:49 EDMS 07/04 07:13 Order name: EKG; Complete Time: 07:13 rn 07/04 07:13 Order name: EKG - Nurse/Tech; Complete Time: 07:34 rn 07/04 07:13 Order name: IV Saline Lock; Complete Time: 07:34 rn 07/04 07:13 Order name: Labs collected and sent; Complete Time: 07:34 rn 07/04 07:13 Order name: Suicide Precautions; Complete Time: 11:50 rn 07/04 07:13 Order name: Suicide Screening ([employer]); Complete Time: 11:50 rn Administered Medications: 07:45 Drug: NS 0.9% IV 1000 ml Route: IV; Rate: 1000 ml; Site: right antecubital; me1 08:50 Follow up: IV Status: Completed infusion; IV Intake: 1000ml me1 09:00 Drug: Acetadote IV 150 mg/kg Route: IV; Rate: calculated rate; Site: right antecubital; ph 10:00 Follow up: Response: No adverse reaction; IV Status: Completed infusion; IV Intake: ph 1000ml Disposition Summary: 07/04/23 08:43 Hospitalization Ordered Hospitalization Status: Inpatient Admission rn Provider: Mitch Terrell [facility]n Condition: Stable rn Problem: new rn Symptoms: have improved rn Bed/Room Type: Standard rn Room Assignment: 202(07/04/23 12:51) ss Diagnosis - Acetaminophen Toxicity rn - Suicidal ideations rn Forms: - Medication Reconciliation Form rn - SBAR form rn - Leadership Thank You Letter furniture mover time excluding procedures: 08:36 Critical care time: Bedside Care: 30 minutes, Consultation: 5 minutes. Total time: 35 rn minutes Signatures: Dispatcher [employer] Mayte Perez RN JP Javier Terrell MD MD rn Blanchard, Shelby, RN RN ss Hall, Patricia RN RN Sheeba Foss, RN RN me1 Corrections: (The following items were deleted from the chart) 12:51 08:43 rn ss
--- NOTE | 2023-07-04 08:43 | ER ---
Nurse's Notes [facility] Name: Cely Clancy Age: 27 yrs Sex: Female : 1995 Arrival Date: 07/04/2023 Time: 06:43 Bed 4 Private MD: Diagnosis: Acetaminophen Toxicity;Suicidal ideations Presentation: 07/04 06:52 Chief complaint: EMS states: pt reported taking 8-10 tylenol 650mg yesterday at 1600 kl Family called for wellness check pt tearful "reports I don't want to hurt myself I just want to be happy". Coronavirus screen: Vaccine status: Patient reports being unvaccinated. Ebola Screen: Patient negative for fever greater than or equal to 101.5 degrees Fahrenheit, and additional compatible Ebola Virus Disease symptoms. Initial Sepsis Screen: Does the patient meet any 2 criteria? No. Patient's initial sepsis screen is negative. Does the patient have a suspected source of infection? No. Patient's initial sepsis screen is negative. Risk Assessment: Do you want to hurt yourself or someone else? Patient reports desire/thoughts of hurting themselves or someone else. Provider notified. Onset of symptoms was July 03, 2023. 06:52 Method Of Arrival: EMS: [facility] 06:52 Acuity: TOMÁS 2 Triage Assessment: 06:57 General: Appears distressed, Behavior is anxious, crying. Historical: - Allergies: 06:56 No Known Allergies; - PMHx: 06:56 Anxiety; depressive disorder; PCOS; post depression; - PSHx: 06:56 section; - Immunization history:: Adult Immunizations not immunized. - Social history:: Smoking status: Patient denies any tobacco usage or history of. - Family history:: not pertinent. - Hospitalizations: : No recent hospitalization is reported. Screenin:39 [facility] ED Fall Risk Assessment (Adult) History of falling in the last 3 months, including since admission No falls in past 3 months (0 pts). Abuse screen: Denies threats or abuse. Denies injuries from another. Nutritional screening: No deficits noted. Tuberculosis screening: Never had TB. Assessment: 07:39 Reassessment: Consulted poison control, CASE# [id number]. Spoke with JP Cali at [facility] poison control center who recommends to obtain FULL tox work up. If liver enzymes are elevated and/or if the Tylenol level is >19 mcg/mL it's recommended to start Acetadote treatment. 07:45 General: Appears distressed, well groomed, well developed, well nourished, Behavior is me1 cooperative, appropriate for age, anxious, crying, Reports dinora cherry increased her valium dose at her last visit but didn't call anymore valium in and so she ran out earlier than she shouldve. She called the pharmacy and the [facility] cherry office but it was close to closing time and no one called her back. States her brother in law had told her day before yesterday that her kids and the rest of her family would be better off if she were because shes always miserable and "I guess that just got in my head." "It made me have an anxiety attack that I just couldn't come out of so I took the tylenol thinking they would all be better off without me." Denies fever, feeling ill, fatigue, chills. Pain: Complains of pain in bilateral upper abdomen quadrants. Neuro: Level of Consciousness is awake, alert, obeys commands, Oriented to person, place, time, situation, Appropriate for age. Cardiovascular: Capillary refill < 3 seconds Patient's skin is warm and dry. Respiratory: Airway is patent Respiratory effort is even, unlabored, Respiratory pattern is regular, symmetrical. GI: Patient currently denies normal bowel habits. :. 09:00 Reassessment: Patient appears in no apparent distress at this time. Patient and/or ph family updated on plan of care and expected duration. Pain level reassessed. Patient is alert, oriented x 3, equal unlabored respirations, skin warm/dry/pink. 10:00 Reassessment: Patient appears in no apparent distress at this time. Patient and/or ph family updated on plan of care and expected duration. Pain level reassessed. Patient is alert, oriented x 3, equal unlabored respirations, skin warm/dry/pink. 11:00 Reassessment: Patient appears in no apparent distress at this time. Patient and/or ph family updated on plan of care and expected duration. Pain level reassessed. Patient is alert, oriented x 3, equal unlabored respirations, skin warm/dry/pink. Pt continues to deny SI. 12:30 Reassessment: Patient appears in no apparent distress at this time. Patient and/or ph family updated on plan of care and expected duration. Pain level reassessed. Patient is alert, oriented x 3, equal unlabored respirations, skin warm/dry/pink. 14:00 Reassessment: Patient appears in no apparent distress at this time. Patient and/or ph family updated on plan of care and expected duration. Pain level reassessed. Patient is alert, oriented x 3, equal unlabored respirations, skin warm/dry/pink. Vital Signs: 06:52 BP 128 / 93; Pulse 68; Resp 18; Temp 98.4(O); Pulse Ox 100% on R/A; Weight 60.78 kg kl (M); Height 5 ft. 1 in. ; 08:36 BP 131 / 97; Pulse 64; Resp 18; Pulse Ox 98% on R/A; ph 09:30 BP 123 / 92; Pulse 59; Resp 18; Pulse Ox 99% on R/A; ph 10:30 BP 122 / 87; Pulse 71; Resp 18; Pulse Ox 99% on R/A; ph 11:30 BP 124 / 86; Pulse 82; Resp 19; Pulse Ox 97% on R/A; ph 12:30 BP 110 / 81; Pulse 76; Resp 20; Pulse Ox 98% on R/A; ph 13:13 BP 124 / 95; Pulse 81; Resp 18; Temp 98.1; Pulse Ox 100% on R/A; ph 14:30 BP 121 / 89; Pulse 78; Resp 18; Pulse Ox 99% on R/A; ph 06:52 Body Mass Index 25.32 (60.78 kg, 154.94 cm) ED Course: 06:49 Patient arrived in ED. kl 06:56 Triage completed. kl 06:58 Javier Terrell MD is Attending Physician. rn 07:17 Mar Cruz, JP is Primary Nurse. ph 07:34 Acetaminophen Sent. me1 07:34 Basic Metabolic Panel Sent. me1 07:34 CBC with Diff Sent. me1 07:34 ETOH Level Sent. me1 07:34 Hepatic Function Sent. me1 07:34 PT-INR Sent. me1 07:34 Ptt, Activated Sent. me1 07:34 Salicylate Sent. me1 07:39 Patient has correct armband on for positive identification. ss 07:45 No provider procedures requiring assistance completed. Maintain EMS IV. Dressing me1 intact. Good blood return noted. Site clean \\T\\ dry. Gauge \\T\\ site: 18 gauge to RAC.. 07:45 Provided Education on: POC. Verbalized understanding. . me1 08:00 Arm band placed on. ph 08:42 Mitch Terrell MD is Hospitalizing Provider. rn 11:30 Inserted saline lock: 22 gauge in left forearm, using aseptic technique. ph 15:00 Patient admitted, IV remains in place. ph Administered Medications: 07:45 Drug: NS 0.9% IV 1000 ml Route: IV; Rate: 1000 ml; Site: right antecubital; me1 08:50 Follow up: IV Status: Completed infusion; IV Intake: 1000ml me1 09:00 Drug: Acetadote IV 150 mg/kg Route: IV; Rate: calculated rate; Site: right antecubital; ph 10:00 Follow up: Response: No adverse reaction; IV Status: Completed infusion; IV Intake: ph 1000ml Medication: 07:39 VIS not applicable for this client. ss Intake: 08:50 IV: 1000ml; Total: 1000ml. me1 10:00 IV: 1000ml; Total: 2000ml. ph Outcome: 08:43 Decision to Hospitalize by Provider. rn 15:02 Patient left the ED. ph 15:02 Admitted to Med/surg accompanied by tech, via stretcher, room 202, with chart, Report ph called to Estrella TRAMMELL 15:02 Condition: good 15:02 Instructed on the need for admit. Signatures: Mayte Restrepo RN RN kl Nieto, Roman, MD MD rn Blanchard, Shelby, RN RN ss Hall, Patricia, RN RN Sheeba Foss RN RN me1 Corrections: (The following items were deleted from the chart) 06:56 06:50 Chief complaint: kl kl 13:18 13:13 BP 124 / 95; Pulse 81bpm; Resp 18bpm; Pulse Ox 100% RA; ph ph
[2023-07-04] MEDS ORDERED: D5W IV ONE (09:00)
[2023-07-04] MEDS ORDERED: ACETYLCYSTEINE IV ONE (09:00)
[2023-07-04] MEDS: GUAIFENESIN/CODEINE 5ML UCUP PO PRN (10:00)
[2023-07-04] MEDS: NA CHLORIDE 0.9% 1,000 ML IV SCH ×2 (10:00→20:00)
[2023-07-04] MEDS ORDERED: ACETYLCYSTEINE IV SCH ×2 (10:00→14:00)
[2023-07-04] MEDS ORDERED: DEXTROSE 5% IV SCH (10:00)
[2023-07-04] MEDS ORDERED: WATER IV SCH (10:00)
[2023-07-04] MEDS: ALBUTEROL 2.5 MG/3 ML NEB SOL NEB SCH ×4 (10:05→19:40)
--- NOTE | 2023-07-04 10:11 | P.HP ---
Certification for Inpatient Patient admitted to: Inpatient With expected LOS: >2 Midnights Patient will require the following post-hospital care: None Practitioner: I am a practitioner with admitting privileges, knowledge of patient current condition, hospital course, and medical plan of care. Services: Services provided to patient in accordance with Admission requirements found in Title 42 Section 412.3 of the Code of Federal Regulations Patient History Date of Service: 07/04/23 Reason for admission: Suicide attempt. History of Present Illness: Patient is a 27-year-old female with a past medical history significant for anxiety disorder, depression, PCOS, ADHD, depression who presents with complaint of suicide attempt. Patient was discharged from the hospital yesterday after being treated for pneumonia. Patient reported that when she got home, her [id number] started berating her about her been a bad mother, that his family can do without her and a whole lot of negative proclamations. Patient reported that she suffered a mental breakdown and wanted to end her life. Patient reported that she ran out of her antianxiety medication recently. Patient reported that she took 8-10 tablets of Tylenol 650 mg. Patient reported that thereafter she became lethargic. Patient also reported right upper quadrant pain rated as 6/10 in severity and described as throbbing in quality. Patient reported associated signs and symptoms of headache, chills, dizziness, cough and generalized malaise. Patient denies any other signs and symptoms. Symptoms are aggravated or relieved by nothing. Patient was brought to the hospital for medical evaluation. Allergies No Known Allergies Allergy (Unverified 07/23/16 03:26) Home Medications: Desvenlafaxine [Desvenlafaxine ER] 100 mg PO BEDTIME 07/01/23 Dextroamphetamine/Amphetamine [Adderall 15 mg Tablet] 15 mg PO DAILY 07/01/23 Gabapentin [Neurontin*] 100 mg PO DAILY 07/01/23 Propranolol [Inderal*] 0.5 mg PO BID 07/01/23 Albuterol Neb [Proventil 0.083% Neb Soln] 2.5 mg NEB [id number] #60 amp 07/03/23 Benzonatate [Tessalon Perle*] 100 mg PO TID PRN #30 cap 07/03/23 Ipratropium Neb [Atrovent*] 0.5 mg NEB [id number] #60 amp 07/03/23 Melatonin 5 mg PO BEDTIME PRN PRN #30 tab 07/03/23 clonazePAM [Klonopin*] 0.5 mg PO TID #30 tab 07/03/23 levoFLOXacin [Levaquin] 500 mg PO DAILY #5 tab 07/03/23 predniSONE [Deltasone] 20 mg PO BID #11 tab 07/03/23 - Past Medical/Surgical History Diabetic: No -: Anxiety -: Depression -: ADHD -: Autism -: Insomia -: Cholecystectomy -: C-sectionx2 -: Tooth extraction -: D&C - Family History Father -: Other (see notes) Notes: Bipolar Mother -: Cancer Notes: Breast,Cervical,Dementia - Social History Smoking Status: Former smoker Alcohol use: No CD- Drugs: Yes Caffeine use: Yes Place of Residence: Home Review of Systems General: Chills, Malaise, Other (Suicide attempt) Eyes: Unremarkable ENT: Unremarkable Respiratory: Cough Cardiovascular: Unremarkable Gastrointestinal: Abdominal Pain Genitourinary: Unremarkable Musculoskeletal: Unremarkable Integumentary: Unremarkable Neurological: Other (Headache, dizziness) Lymphatics: Unremarkable Physical Examination - Physical Exam General: Alert, In no apparent distress, Oriented x3, Cooperative HEENT: Atraumatic, PERRLA, Mucous membr. moist/pink, EOMI, Sclerae nonicteric Neck: Supple, 2+ carotid pulse no bruit, No LAD, Without JVD or thyroid abnormality Respiratory: Diminished Cardiovascular: No edema, Regular rate/rhythm, Normal S1 S2 Capillary refill: <2 Seconds Gastrointestinal: Normal bowel sounds, Soft and benign, Tenderness Musculoskeletal: No clubbing, No swelling, No tenderness Integumentary: No rashes, No significant lesion Neurological: Normal speech, Normal tone, Normal affect Lymphatics: No axilla or inguinal lymphadenopathy - Studies Laboratory Data (last 24 hrs) 07/04/23 07/04/23 07/04/23 07:30 07:30 07:30 WBC 12.40 H Hgb 10.6 L Hct 31.1 L Plt Count 247 PT 11.8 INR 1.07 APTT 31.9 Sodium 144 Potassium 3.2 L BUN 9 Creatinine 0.52 L Glucose 89 Total Bilirubin 0.2 AST 7 L ALT 14 Alkaline Phosphatase 31 L Assessment and Plan - Plan --Suicide attempt. Patient took 8 to 10 tablets of Tylenol. Patient started on Acetadote IV in the ER. Tylenol serum level -- 30.9. Poison control notified by ER staff--recommend to treat Tylenol overdose. Patient currently denies any suicidal ideation. Suicide precautions. Psychiatry consulted. We will await further recommendations from psychiatrist. --Pneumonia. CT imaging indicates Minimal improvement in bilateral mild ground-glass opacities within the lungs. This may represent pneumonitis or pneumonia. Patient placed on antibiotics, neb treatment with albuterol\Atrovent and O2 therapy as needed. Continue antitussives. --Anxiety disorder\depression\ADHD. Continue home medications. --Hypokalemia. Replete as needed. --Leukocytosis. Secondary to pneumonia. Blood cultures pending. Continue antibiotics. We will continue to monitor WBC levels. --Insomnia. Continue home medication. --Cannabis use disorder. Patient counseled on drug cessation. --DVT prophylaxis with Lovenox subQ. Discharge Plan: Home Plan to discharge in: Greater than 2 days - Advance Directives Does patient have a Living Will: No Does patient have a Durable POA for Healthcare: No - Code Status/Comfort Care Code Status Assessed: Yes Physician Review: Patient Assessed, Agree with Above Assessment and Plan Critical Care: No
[2023-07-04 10:34] LABS: Magnesium 1.9 mg/dL (1.6-2.4); Thyroid Stimulating Hormone 0.93 uIU/mL (0.358-3.740)
[2023-07-04] MEDS ORDERED: GUAIFENESIN/CODEINE 5ML UCUP ONE (10:55)
[2023-07-04] MEDS ORDERED: ALBUTEROL 2.5 MG/3 ML NEB SOL ONE ×2 (10:55→15:03)
[2023-07-04] MEDS ORDERED: IPRATROPIUM BROM 0.5MG/2.5ML ONE ×2 (10:56→15:03)
[2023-07-04] MEDS: Levofloxacin 750mg IV 750 MG/150 ML BAG IV SCH (11:00)
--- NOTE | 2023-07-04 11:45 | RAD REPORT ---
EXAM DESCRIPTION: CT - Thorax Wo Con - 07/04/2023 10:13 am CLINICAL HISTORY: sob COMPARISON: July 01, 2023 TECHNIQUE: Computed axial tomography of the chest was obtained. Contrast was not requested. All CT scans are performed using dose optimization technique as appropriate and may include automated exposure control or mA/KV adjustment according to patient size. FINDINGS: The evaluation of mediastinum, juan c and vessels is limited secondary to lack of IV contras t administration. Minimal improvement in mild bilateral ground-glass opacities within the lungs. No mediastinal or hilar lymphadenopathy is seen. A pleural effusion is not present. No pericardial effusion IMPRESSION: Minimal improvement in bilateral mild ground-glass opacities within the lungs. This may represent pneumonitis or pneumonia
[2023-07-04] MEDS ORDERED: Levofloxacin 750mg IV 750 MG/150 ML BAG IV ONE (11:54)
[2023-07-04] MEDS ORDERED: D5W IV SCH (14:00)
[2023-07-04] MEDS: clonazePAM 0.5 MG TAB PO SCH ×2 (14:45→21:03)
[2023-07-04] MEDS: IPRATROPIUM BROM 0.5MG/2.5ML NEB SCH ×2 (14:50→19:40)
[2023-07-04] MEDS ORDERED: clonazePAM 0.5 MG TAB ONE (14:53)
[2023-07-04 15:43] VITALS: BMI 25.3
[2023-07-04] MEDS: DESVENLAFAXINE SUCCINATE 50 MG ER TAB PO SCH (17:21)
[2023-07-04 19:49] LABS: Potassium 3.1 mEq/L (3.5-5.1)
[2023-07-04] MEDS ORDERED: POTASSIUM CL SA 10 MEQ TAB PO ONE (20:13)
[2023-07-04] MEDS: TRAZODONE 50 MG TABLET PO SCH (21:03)
[2023-07-05] MEDS: IPRATROPIUM BROM 0.5MG/2.5ML NEB SCH ×4 (01:10→21:00)
[2023-07-05] MEDS: ALBUTEROL 2.5 MG/3 ML NEB SOL NEB SCH ×4 (01:10→21:00)
[2023-07-05 04:36] LABS: Absolute Lymphocytes (CBC) 2.9 K/uL (0.7-4.9); Hematocrit 31.7 % (36.0-45.0); Lymphocytes % 39.3 % (15.3-44.8); MCV 89.5 fL (80-100); MPV 8.2 fL (7.6-11.3); Platelets 219 thou/uL (152-406); Protime INR 1.15; RBC Red Blood Cell Count 3.54 M/uL (3.86-4.86)
[2023-07-05 04:54] LABS: Albumin 2.4 g/dL (3.4-5.0); Bilirubin Total 0.2 mg/dL (0.2-1.0); Potassium 3.2 mEq/L (3.5-5.1)
[2023-07-05] MEDS: NA CHLORIDE 0.9% 1,000 ML IV SCH ×2 (06:00→16:00)
--- NOTE | 2023-07-05 06:53 | P.PN ---
Date of Service: 07/05/23 Subjective: Feeling back to normal self appetite improved denies any suicidal ideation no new / worsening problems ROS: 10 point ROS as noted above, otherwise negative Physical Exam: GEN: Alert, oriented, NAD HEENT: Normal conjunctiva, sclera anicteric CV: Regular rate and rhythm, no edema Pulm: Nonlabored respirations on room air ABD: Soft, nontender, nondistended Neuro: Normal speech, normal affect vitals reviewed Problem List: tylenol ingestion / toxicity Bilateral Opacities Anxiety/Depression/ADHD Hypokalemia Insomnia Cannabis use Disorder tylenol ingestion / toxicity Patient took ~9 tablets of 650 mg Tylenol due to suicidal ideation. Given Acetadote IV in the ER. followed by 16hr infusion Tylenol serum level improved (30.9 -> 2.5) Patient currently denies any suicidal ideation. LFTs slight increase, but remain within normal range Psychiatry consulted. - cleared for discharge once medically stable; restarted meds Suicide precautions. Bilateral Opacities CT chest (07/04): Minimal improvement in bilateral mild ground-glass opacities within the lungs. This may represent pneumonitis or pneumonia. Blood cx: pending Continue empiric levaquin (07/04-) afebrile, +leukocytosis resolved PRN nebs with albuterol\Atrovent and O2 therapy Continue antitussives. Anxiety disorder\depression\ADHD. Continue home medications. Hypokalemia. Replete as needed. Insomnia. Continue home medication. Cannabis use disorder. Patient counseled on drug cessation. VTE: Lovenox Code: Full Dispo: Home ~1 day
[2023-07-05 07:48] LABS: Magnesium 1.8 mg/dL (1.6-2.4); Phosphorus 3.1 mg/dL (2.5-4.9)
[2023-07-05] MEDS ORDERED: MAGNESIUM SULFATE 1 gm IVPB 1 GM/100 ML BAG IV ONE (07:58)
[2023-07-05] MEDS: ENOXAPARIN 40 MG/0.4 ML SQ SCH (08:11)
[2023-07-05] MEDS: clonazePAM 0.5 MG TAB PO SCH ×3 (08:11→20:52)
[2023-07-05] MEDS: DESVENLAFAXINE SUCCINATE 50 MG ER TAB PO SCH (08:12)
[2023-07-05] MEDS ORDERED: POTASSIUM CL SA 10 MEQ TAB PO ONE ×2 (09:00→16:43)
[2023-07-05 10:35] LABS: ALT/SGPT 37 U/L (13-56); AST/SGOT 11 U/L (15-37); Albumin 2.8 g/dL (3.4-5.0); Alkaline Phosphatase 28 U/L (45-117); BUN Blood Urea Nitrogen 3 mg/dL (7-18); Bicarbonate 31 mEq/L (21-32); Bilirubin Direct 0.1 mg/dL (0-0.2); Bilirubin Total 0.3 mg/dL (0.2-1.0); Glomerular Filtration Rate 127 ml/min (=/>90); Glucose Level 94 mg/dL (74-106); Potassium 3.6 mEq/L (3.5-5.1); Protein, Total 5.6 g/dL (6.4-8.2); Sodium Level 145 mEq/L (136-145)
[2023-07-05] MEDS: Levofloxacin 750mg IV 750 MG/150 ML BAG IV SCH (11:22)
--- NOTE | 2023-07-05 18:30 | EKG ---
Test Date: 2023-07-04 Test Time: 07:30:05 Upholstery Mechanic: TEODORO MEASUREMENT RESULTS: Intervals: Rate: 57 NJ: 108 QRSD: 84 QT: 410 QTc: 399 Telferner: P: 28 NJ: 108 QRS: 81 T: 59 INTERPRETIVE STATEMENTS: Sinus bradycardia with short NJ Otherwise normal ECG Compared to ECG 07/01/2023 10:28:38 Short NJ interval now present Sinus rhythm no longer present Electronically Signed On 07-05-23 18:27:08 CDT by Larry Pino
[2023-07-05] MEDS: TRAZODONE 50 MG TABLET PO SCH (20:52)
[2023-07-06] MEDS: ALBUTEROL 2.5 MG/3 ML NEB SOL NEB SCH ×2 (02:00→08:00)
[2023-07-06] MEDS: IPRATROPIUM BROM 0.5MG/2.5ML NEB SCH ×2 (02:00→08:00)
[2023-07-06 03:15] LABS: Bilirubin Total 0.2 mg/dL (0.2-1.0); Potassium 4.1 mEq/L (3.5-5.1); Protein, Total 5.9 g/dL (6.4-8.2)
[2023-07-06] MEDS: GUAIFENESIN/CODEINE 5ML UCUP PO PRN (04:14)
[2023-07-06] MEDS: MORPHINE 2 MG/ML SYR IV PRN ×2 (06:23→18:44)
[2023-07-06] MEDS ORDERED: TRAMADOL HCL 50 MG TAB PO PRN (06:51)
[2023-07-06] MEDS ORDERED: ONDANSETRON 4 MG/2 ML VIAL IV PRN (06:51)
--- NOTE | 2023-07-06 09:21 | CON ---
Date of Consultation: 07/04/2023 Reason For Consult: Evaluate patient for suicide attempt and make recommendations. History Of Present Illness: Ms. Cely Clancy is a 27-year-old female with psychiatric history significant for major depressive disorder, recurrent; anxiety disorder, unspecified; insomnia; ADHD and Cannabis use disorder. On interview, the patient was met in her room, lying in bed with her mom by her bedside. States that she has been experiencing bouts of emotional distress lately. States she gets overwhelmed easily and gets depressed and irritable. Patient states prior to her presentation she got into an argument with her brother in-law, father and their friends. She states this altercation with her [id number], her father, and a friend was described as they saying she is unfit to be a mother and that she is weak. Patient she really frustrated and decided to calm herself by ingesting the 8 tablets of Tylenol. patient states she started feeling tired. The patient states that she later informed her when she started feeling lethargic and called her mom and she was brought to the hospital. Patient states prior to this episode she has been having difficulty with sleep, has anxiety has gotten worse. She states she has been off her antidepressant for while because she was taking antibiotics and steroid for pneumonia. She currently, denies having suicidal ideation and feels very remorseful for her actions. She denies alcohol abuse as well as substance abuse however on admission her urine toxicology screen was positive for THC. The patient's mom, who was at bedside says she is very close to her daughter and has been very supportive. The patient states she takes Desvenlafaxine 50 mg p.o. daily, atenolol 5 mg p.o. b.i.d., Ambien 10 mg p.o. at bedtime for sleep and also takes mg p.o. b.i.d. for ADHD. Physical Examination: Vital Signs: Blood pressure 150/89, pulse rate 74, respiratory rate 17, O2 sat on room air is 98. Mental Status Examination: The patient is well-nourished female, dressed in hospital attire, lying in bed, not in any obvious cardiorespiratory distress. Alert and oriented x3. The patient is cooperative with interview. Mild psychomotor agitation. Speech is spontaneous, normal rate, rhythm, and volume. No perseveration noted. The patient seems to be distracted. Memory is good. Mood is described as anxious. Affect is mood congruent. Thought process is linear and no flight of ideas. Thought content, no delusional thinking. Although patient was admitted for suicidal attempt, she currently denies suicidal ideation and no homicidal ideation. Insight, judgment, and impulse control is limited to fair. Fund of knowledge great. Language skills are good. Diagnoses: 1. Major depressive disorder, recurrent, severe, without psychotic features. 2. Anxiety disorder, unspecified. 3. Chronic insomnia. 4. Cannabis use disorder, unspecified. Recommendations: 1. Although the patient attempted suicide via overdosing on Tylenol, she is however currently not suicidal. She does have access to psychiatrist and has an appointment with a psychologist next week. Patient has no gun and no access to one. Her mother has agreed to stay with patient until she is sees her psychiatrist and therapist post discharge, Suicide risk assessment is low and suicide prevention plan discussed with patient and her mother. 2. Recommend restarting the patient on antidepressant Desvenlafaxine 50 mg p.o. daily first dose now 3. Recommend starting Trazodone 25 mg p.o. at bedtime for sleep. 4. Recommend the patient to followup with therapist next week. 5. The patient to followup with psychiatric outpatient on discharge. 6. Recommend medical team to continue manage the patient medically. 7. Discussed recommendation with treatment team. 8. Discontinue one-on-one observation of the patient. JENNIFER/SIDRA Voice ID: [id number] Report ID: [id number] JESSE
[2023-07-06] MEDS: clonazePAM 0.5 MG TAB PO SCH ×3 (09:24→21:41)
[2023-07-06] MEDS: DESVENLAFAXINE SUCCINATE 50 MG ER TAB PO SCH (09:25)
[2023-07-06] MEDS: ENOXAPARIN 40 MG/0.4 ML SQ SCH (09:27)
--- NOTE | 2023-07-06 10:42 | P.PN ---
Date of Service: 07/06/23 Subjective: RUQ/epigastric abdominal pain this morning after eating some fruit and cough fit similar to prior episodes since having gallbladder removed +Nausea (prior to administration of pain medication) ROS: 10 point ROS as noted above, otherwise negative Physical Exam: GEN: Alert, oriented, NAD HEENT: Normal conjunctiva, sclera anicteric CV: Regular rate and rhythm, no edema Pulm: Nonlabored respirations on room air ABD: Soft, mild tenderness in RUQ/epigastrium, nondistended Neuro: Normal speech, normal affect vitals reviewed Problem List: Tylenol ingestion / toxicity Bilateral Pulmonary Opacities Abdominal Discomfort with nausea/vomiting Anxiety/Depression/ADHD Hypokalemia Insomnia Cannabis use Disorder tylenol ingestion / toxicity Patient took ~9 tablets of 650 mg Tylenol due to suicidal ideation. Given Acetadote IV in the ER. followed by 16hr infusion Tylenol serum level improved (30.9 -> 2.5) Patient currently denies any suicidal ideation. LFTs slight increase, but remain within normal range stable today ~72hrs out, pt with RUQ /epigastric pain and nausea repeat labs later today monitor until tomorrow at least possibly from fruit / intermittent chronic issue vs tylenol ingestion mild tenderness, RUQ and epigastrium; check lipase as well Psychiatry consulted. - cleared for discharge once medically stable; restarted meds Suicide precautions. Bilateral Pulmonary Opacities CT chest (07/04): Minimal improvement in bilateral mild ground-glass opacities within the lungs. This may represent pneumonitis or pneumonia. Blood cx: pending Continue empiric levaquin (07/04-) afebrile, +leukocytosis resolved PRN nebs with albuterol\Atrovent and O2 therapy Continue antitussives. Abdominal Discomfort with nausea/vomiting episode of abdominal pain this morning after eating some fruit, +coughing/nausea/vomiting shortly after no further episodes - advised to avoid triggers check CMP, lipase Anxiety disorder\depression\ADHD. Continue home medications. Hypokalemia. Replete as needed. Insomnia. Continue home medication. Cannabis use disorder. Patient counseled on drug cessation. VTE: Lovenox Code: Full Dispo: Home ~1 day
[2023-07-06] MEDS: Levofloxacin 750mg IV 750 MG/150 ML BAG IV SCH (11:01)
[2023-07-06] MEDS ORDERED: ALBUTEROL 2.5 MG/3 ML NEB SOL NEB PRN ×2 (12:26→14:00)
[2023-07-06] MEDS ORDERED: IPRATROPIUM BROM 0.5MG/2.5ML NEB PRN ×2 (12:27→14:00)
[2023-07-06 12:58] LABS: Albumin 3.1 g/dL (3.4-5.0); Bilirubin Total 0.2 mg/dL (0.2-1.0); Potassium 3.9 mEq/L (3.5-5.1); Protein, Total 6.3 g/dL (6.4-8.2)
[2023-07-06] MEDS: TRAZODONE 50 MG TABLET PO SCH (21:41)
[2023-07-06] MEDS ORDERED: FAMOTIDINE 20 MG/2 ML VIAL IV ONE (22:00)
[2023-07-07] MEDS: GUAIFENESIN/CODEINE 5ML UCUP PO PRN (02:01)
[2023-07-07 07:10] LABS: Absolute Lymphocytes (CBC) 2.9 K/uL (0.7-4.9); Hematocrit 36.3 % (36.0-45.0); Lymphocytes % 24.6 % (15.3-44.8); MCV 89.1 fL (80-100); MPV 7.9 fL (7.6-11.3); Platelets 290 thou/uL (152-406); RBC Red Blood Cell Count 4.07 M/uL (3.86-4.86)
[2023-07-07 07:19] LABS: Albumin 2.8 g/dL (3.4-5.0); Bilirubin Total 0.2 mg/dL (0.2-1.0); Potassium 3.9 mEq/L (3.5-5.1); Protein, Total 5.8 g/dL (6.4-8.2)
[2023-07-07 08:06] LABS: Blood Morphology Comment NOT SEEN (NOT SEEN); Platelet Estimate ADEQ
[2023-07-07] MEDS ORDERED: BENZONATATE 100 MG CAP PO PRN (08:14)
[2023-07-07 08:39] VITALS: O2SAT 98
[2023-07-07] MEDS ORDERED: predniSONE 20 MG TAB PO SCH (09:00)
[2023-07-07] MEDS: ENOXAPARIN 40 MG/0.4 ML SQ SCH (09:40)
[2023-07-07] MEDS: clonazePAM 0.5 MG TAB PO SCH ×2 (09:40→14:27)
[2023-07-07] MEDS: DESVENLAFAXINE SUCCINATE 50 MG ER TAB PO SCH (10:34)
--- NOTE | 2023-07-07 11:43 | P.CNS ---
Date of Consult: 07/07/23 Reason for Consult: SOB and cough Chief Complaint: Shortness of breath History of Present Illness: Patient is 27 years of age he has been having coughing spells for months to the hospital with worsening dyspnea for the past month. Initially better then relap sed are having problems at night which are intermittent using albuterol inhaler prior history of asthma she was was prescribed an albuterol inhaler when she was diagnosed with COVID no prior history of lung problems feeling much better Allergies No Known Allergies Allergy (Unverified 07/23/16 03:26) Home Medications: Desvenlafaxine [Desvenlafaxine ER] 50 mg PO BEDTIME 07/01/23 Dextroamphetamine/Amphetamine [Adderall 15 mg Tablet] 15 mg PO BID 07/01/23 Propranolol [Inderal*] 0.5 mg PO BID 07/01/23 Albuterol Neb [Proventil 0.083% Neb Soln] 2.5 mg NEB [id number] #60 amp 07/03/23 Ipratropium Neb [Atrovent*] 0.5 mg NEB [id number] #60 amp 07/03/23 Diazepam [Valium] 0.5 tab PO BID PRN 07/05/23 Propranolol HCl 0.5 tab PO BID 07/05/23 - Past Medical/Surgical History Diabetic: No -: Anxiety -: Depression -: ADHD -: Autism -: Insomia -: Cholecystectomy -: C-sectionx2 -: Tooth extraction -: D&C - Family History Father Medical History: Other (see notes) Notes: Bipolar Mother Medical History: Cancer Notes: Breast,Cervical,Dementia - Social History Smoking Status: Current every day smoker Alcohol use: No CD- Drugs: Yes Caffeine use: Yes Place of Residence: Home Review of Systems 10-point ROS is otherwise unremarkable Physical Examination Temp Pulse Resp BP Pulse Ox 97.3 F 91 H 16 95/51 L 98 07/07/23 08:00 07/07/23 08:00 07/07/23 08:00 07/07/23 08:00 07/07/23 08:00 General: Alert, Oriented x3 Neck: Supple Respiratory: Clear to auscultation bilaterally Cardiovascular: No edema, Regular rate/rhythm, Normal S1 S2 Gastrointestinal: Normal bowel sounds, Soft and benign Musculoskeletal: No clubbing, No swelling - Problems (1) Shortness of breath Current Visit: Yes Status: Acute Plan: Is 27 years of age has had a chronic cough months admitted with worsening dyspnea over the past month. Eyes so I suspect that she has obstructive airways disease most likely asthma Labs noted she has significant eosinophilia when discharging her on prednisone 10 mg twice a day for 10 days and use Advair or Symbicort inhaler follow-up in my office in 2 weeks likely she has asthma which is causing her eosinophilia CT reviewed minimal changes bilaterally as noted in the report signs stable oxygenation satisfactory patient feeling better experience any nocturnal symptoms discharge
[2023-07-07 12:18] VITALS: BP 98/72; TEMP 99.1
--- NOTE | 2023-07-07 13:33 | P.DS ---
Admission Date: 07/04/23 Discharge Date: 07/07/23 Disposition: ROUTINE DISCHARGE Discharge Condition: GOOD Reason for Admission: Shortness of breath Consultations: Psychology - Dr. Norwood Pulmonology - Dr. Pina Brief History of Present Illness: 27 yo F, PMH: anxiety disorder, depression, PCOS, ADHD, depression Patient presents with complaint of suicide attempt. Patient was discharged from the hospital yesterday after being treated for pneumonia. Patient reported that when she got home, her [id number] started berating her about her been a bad mother, that his family can do without her and a whole lot of negative proclamations. Patient reported that she suffered a mental breakdown and wanted to end her life. Patient reported that she ran out of her antianxiety medicatio n recently. Patient reported that she took 8-10 tablets of Tylenol 650 mg. Patient reported that thereafter she became lethargic. Patient also reported right upper quadrant pain rated as 6/10 in severity and described as throbbing in quality. Patient reported associated signs and symptoms of headache, chills, dizziness, cough and generalized malaise. Patient denies any other signs and symptoms. Symptoms are aggravated or relieved by nothing. Hospital Course: Problem List: Tylenol ingestion / toxicity Bilateral Pulmonary Opacities, from recent pneumonia; Reactive airway disease Abdominal Discomfort with nausea/vomiting Anxiety/Depression/ADHD Hypokalemia Insomnia Cannabis use Disorder Patient presented to ED with RUQ abdominal pain, generalized malaise, headache, dizziness, and some lethargy. Symptoms began after she took ~8-10 650mg Acetaminophen tablets due to an acute episode of depression and in an attempt to end her life. She was recently admitted to the hospital for asthma/pneumonia, discharged the day prior to this presentation, and had a significant argument with family members before this ingestion occurred. In the ED, she was noted to have a serum acetaminophen level of 31. Poison control was contacted and recommended admission and to start treatment with NAC, which patient received the loading dose and 16hour subsequent infusion. Repeat Acetaminophen level was <2 the following day, her symptoms resolved overnight. She did have upper abdominal pain and nausea on the morning of 07/06. Repeat labs remained stable. She reported having similar symptoms intermittently before and after having her gallbladder removed. She did eat some fruit that occasionally exacerbates this pain. Given the timing and pain, she was monitored for an additional day. She had improvement and labs/LFTs remained stable and within normal limits. She was tolerating a regular diet without nausea/vomiting, and had no abdominal pain. Dr. Norwood, psychiatry, was consulted, and sees the patient routinely in the office. Since arrival to ED, patient denied any further thoughts or plans to harm herself or others, she expressed remorse and appropriate insight on the situation. Dr. Norwood recommended restarting her antidepressants /anxiolytics. It was felt that the patient's recent illness, medication perlita nges, and missing some of her antidepressant/anxiolytic medication but her at increased risk of this episode. Recommend to continue home meds as prescribed. Continue Desvenlafaxine, diazepam Complete antibiotic course as prescribed last discharge New Medications: 10 days prednisone of 10mg BID. Symbicort 2 puff BID Follow up: PCP within [address] Norwood Monday Pulmonology in 1-2 weeks and also as previously recommended last hospitalization -Patient did have repeat CT chest in the ED, which noted mild improvement of bilateral pulmonary opacities. She was continued on levaquin as recently prescribed, remained afebrile. -recommended discontinue levaquin at this point. On day of discharge she was noted to have eosinophilia which was similar to when she presented with on admission on 07/01. Given her eosinophilia and CT findings, I consulted pulmonology for input regarding possibility of eosinophilic pneumonia vs reactive airway disease, vs eosinophila secondary to medication. Pulmonology felt this was likely reactive airway disease / her asthma. Recommend prednisone, Symbicort, and follow up in office in 1-2 weeks and deemed stable for discharge home. Of note, review of medication side effect profile with pharmacist Pristiq has been shown to induce acute reversible eosinophilc pneumonia, not uncommon. per pharmacist, uncertain how consistent she has been filling this script. klonopin/diazepam would have a risk as well, but less common Physical Exam: GEN: Alert, oriented, NAD HEENT: Normal conjunctiva, sclera anicteric CV: Regular rate and rhythm, no edema Pulm: Nonlabored respirations on room air, dry cough, no wheeze ABD: Soft, nontender, nondistended Neuro: Normal speech, normal affect Vital Signs/Physical Exam: Temp Pulse Resp BP Pulse Ox 99.1 F 110 H 16 98/72 98 07/07/23 12:00 07/07/23 12:00 07/07/23 12:00 07/07/23 12:00 07/07/23 12:00 Laboratory Data at Discharge: WBC 11.80 thou/uL (4.3-10.9) H 07/07/23 06:49 Hgb 12.1 g/dL (12.0-15.0) 07/07/23 06:49 Hct 36.3 % (36.0-45.0) 07/07/23 06:49 Plt Count 290 thou/uL (152-406) 07/07/23 06:49 PT 12.6 SECONDS (9.5-12.5) H 07/05/23 03:17 INR 1.15 07/05/23 03:17 APTT 31.9 SECONDS (24.3-36.9) 07/04/23 07:30 Sodium 138 mEq/L (136-145) 07/07/23 06:49 Potassium 3.9 mEq/L (3.5-5.1) 07/07/23 06:49 BUN 9 mg/dL (7-18) 07/07/23 06:49 Creatinine 0.72 mg/dL (0.55-1.02) 07/07/23 06:49 Glucose 100 mg/dL (74-106) 07/07/23 06:49 Phosphorus 3.1 mg/dL (2.5-4.9) 07/05/23 03:17 Magnesium 2.0 mg/dL (1.6-2.4) 07/07/23 06:49 Total Bilirubin 0.2 mg/dL (0.2-1.0) 07/07/23 06:49 AST 8 U/L (15-37) L 07/07/23 06:49 ALT 29 U/L (13-56) 07/07/23 06:49 Alkaline Phosphatase 32 U/L (45-117) L 07/07/23 06:49 Lipase 15 U/L (13-75) 07/07/23 06:49 Home Medications: Desvenlafaxine [Desvenlafaxine ER] 50 mg PO BEDTIME 07/01/23 Dextroamphetamine/Amphetamine [Adderall 15 mg Tablet] 15 mg PO BID 07/01/23 Propranolol [Inderal*] 0.5 mg PO BID 07/01/23 Albuterol Neb [Proventil 0.083% Neb Soln] 2.5 mg NEB [id number] #60 amp 07/03/23 Ipratropium Neb [Atrovent*] 0.5 mg NEB [id number] #60 amp 07/03/23 Diazepam [Valium] 0.5 tab PO BID PRN 07/05/23 Propranolol HCl 0.5 tab PO BID 07/05/23 Budesonide/Formoterol Fumarate [Symbicort 160-4.5 Mcg Inhaler] 2 puff IH BID 30 Days #1 inhaler 07/07/23 predniSONE [Deltasone*] 10 mg PO BID 10 Days #20 tab 07/07/23 New Medications: predniSONE [Deltasone*] 10 mg PO BID 10 Days #20 tab Budesonide/Formoterol Fumarate [Symbicort 160-4.5 Mcg Inhaler] 2 puff IH BID 30 Days #1 inhaler Physician Discharge Instructions: PROBLEM: Pneumonia, tylenol overdose GOAL: Clear understanding of disease process INSTRUCTIONS: Follow up: PCP within [address] Norwood in next few weeks Pulmonology in 1-2 weeks and also as previously recommended last hospitalization -Patient did have repeat CT chest in the ED, which noted mild improvement of bilateral pulmonary opacities. She was continued on levaquin as recently prescribed, remained afebrile. -recommended discontinue levaquin at this point. Return to ER if symptoms worsen. Diet: Regular Activity: As tolerated Date Given: Patient presented to ED with RUQ abdominal pain, generalized malaise, headache, dizziness, and some lethargy. Symptoms began after she took ~8-10 650mg Acetaminophen tablets due to an acute episode of depression and in an attempt to end her life. She was recently admitted to the hospital for asthma/pneumonia, discharged the day prior to this presentation, and had a significant argument with family members before this ingestion occurred. In the ED, she was noted to have a serum acetaminophen level of 31. Poison control was contacted and recommended admission and to start treatment with NAC, which patient received the loading dose and 16hour subsequent infusion. Repeat Acetaminophen level was <2 the following day, her symptoms resolved overnight. She did have upper abdominal pain and nausea on the morning of 07/06. Repeat labs remained stable. She reported having similar symptoms intermittently before and after having her gallbladder removed. She did eat some fruit that occasionally exacerbates this pain. Given the timing and pain, she was monitored for an additional day. She had improvement and labs/LFTs remained stable and within normal limits. She was tolerating a regular diet without nausea/vomiting, and had no abdominal pain. Dr. Norwood, psychiatry, was consulted, and sees the patient routinely in the office. Since arrival to ED, patient denied any further thoughts or plans to harm herself or others, she expressed remorse and appropriate insight on the situation. Dr. Norwood recommended restarting her antidepressants /anxiolytics. It was felt that the patient's recent illness, medication changes, and missing some of her antidepressant/anxiolytic medication but her at increased risk of this episode. Recommend to continue home meds as prescribed. Continue Desvenlafaxine, diazepam Complete antibiotic course as prescribed last discharge New Medications: 10 days prednisone of 10mg BID. Symbicort 2 puff BID Follow up: PCP within [address] Norwood in next few weeks Pulmonology in 1-2 weeks and also as previously recommended last hospitalization -Patient did have repeat CT chest in the ED, which noted mild improvement of bilateral pulmonary opacities. She was continued on levaquin as recently prescribed, remained afebrile. -recommended discontinue levaquin at this point. On day of discharge she was noted to have eosinophilia which was similar to when she presented with on admission on 07/01. Given her eosinophilia and CT findings, pulmonology was consulted and felt this was likely reactive airway disease / her asthma. Recommend prednisone, Symbicort, and follow up in office in 1-2 weeks and deemed stable for discharge home. Electronic Medical record not allowing for me to send prescription for klonopin. Sent a messege to Dr. Norwood to follow up. Follow up with a Senior Care Specialist of your choice: DOROTEO WADE, [address] [phone] Followup: Unknown,U [Primary Care Provider] - Time spent managing pt's care (in minutes): 45
== END 2023-07-07 15:40 | disposition home or self-care (01) | DRG 917 ==
LOC: ER 06:43 → ERHOLD 09:21 → 2ND 14:30
PROVIDERS: ADMIT Hospitalist; ATTEND Hospitalist
DX: T39.1X2A Poisoning by 4-Aminophenol derivatives, intentional self-harm, initial encounter (principal); J18.9 Pneumonia, unspecified organism; F33.2 Major depressive disorder, recurrent severe without psychotic features; E28.2 Polycystic ovarian syndrome; F90.9 Attention-deficit hyperactivity disorder, unspecified type; F41.9 Anxiety disorder, unspecified; E87.6 Hypokalemia; G47.00 Insomnia, unspecified; F12.10 Cannabis abuse, uncomplicated; F17.200 Nicotine dependence, unspecified, uncomplicated; Z71.51 Drug abuse counseling and surveillance of drug abuser; Z79.52 Long term (current) use of systemic steroids; Z91.51 Personal history of suicidal behavior; Z90.49 Acquired absence of other specified parts of digestive tract; Z86.16 Personal history of COVID-19; Z79.899 Other long term (current) drug therapy
CPT/HCPCS: 36415; 71250; 80048; 80053; 80076; 80143; 80179; 80307; 81001; 81025; 82077; 82248; 83690; 83735; 84100; 84132; 84439; 84443; 85025; 85610; 85730; 87040; 93005; 94640; 96361; 96365; 99285; J0132; J1650; J2270; J2405; J3475; J7030; J7060; J7512; J7613; J7644

== ENCOUNTER 2023-08-06 17:08 | Emergency (ER) | payer BC, OTHER ==
--- OUTSIDE RECORDS SUMMARY | 2023-08-06 17:19 | XMS REPORT | Continuity of Care Document ---
:1995 Author Organization [facility] t Address [address] [place] [address] Care Team Providers Name Role Phone Linh Davis Primary Care Physician [phone] ARLYN GARBER Attending Clinician Unavailable ARLYN GARBER Attending Clinician Unavailable Arlen Madden RN Attending Clinician Unavailable P[facility] Attending Clinician Unavailable LISSET CALHOUN Attending Clinician Unavailable Doctor Unassigned, [place] Attending Clinician Unavailable Mitchell Acevedo RN Attending [...] Policy Number Effective Date Expiration Date S asndy [facility] [id number] 2018 00:00:00 Problems Condition Condition Condition Status Onset Resolution Last Treating Co mments Source Name Details Category Date Date Treatment Clinician Date Missed Missed Disease Active Univers 9-22 ity of 00:00: [place] 00 [facility] Abdominal Abdominal Disease Active Uni vers pain pain 9-22 [place] affecting [place] [facility] [place] [facility] Nausea and Nausea and Disease Active U nivers vomiting vomiting 9-22 ity of during during 00:00: [place] 00 [facility] [place] [facility] Vaginal Vaginal Disease Active 2021- Univers bleeding bleeding 9-20 [place] of affecting [place] early early 00 Medical Bran ch Anxiety Anxiety Disease Active Univers 9-20 ity of 00:00: [place] 00 [facility] Vaginal Vaginal Disease Active Univers bleeding bleeding 9-20 ity of in in 00:00: [place] 00 [facility] [place] [facility] Disease Active Unive rs delivery delivery 1-25 [place] delivered [place] [facility] Encounter Encounter Disease Active 2020-11 Uni vers for tubal for tubal 2-10 ity of ligation ligation 00:00: [place] counseling counseling 00 [facility] High-risk High-risk Disease Active 2020-11 Uni vers 2-10 ity of in third in third 00:00: [place] trimester trimester 00 [facility] [place] [facility] Previous Previous Disease Active 2020-11 Unive rs 2-10 ity of section section 00:00: [place] 00 [facility] Branch History of History of Disease Active 2020-11 U nivers depression depression 2-10 it y of 00:00: [place] [address] Medical Branch History of History of Disease Active 2020-11 U nivers anxiety anxiety 2-10 ity of 00:00: [address] Branch Obesity Obesity Disease Active 2020-11 Univers during during 2-09 [place] of [place] [facility] Obesity Obesity Disease Active 2020-11 Univers (BMI (BMI 2-09 ity of 30-39.9) 30-39.9) 00:00: [address] History of History of Disease Active 2020-11 Overview : Univers 0-28 Formattin ity of section section 00:00: g of this [place] [address] note Medical might be Branch different from the original. Formattin g of this note might be different from the original. Desires trial of labor.Raul ared for trial of labor. epsPatien t declines trial of labor now.Prete rm labor. 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 9-10 ity of 00:00: [address] Generalize Generalize Disease Active U nivers d d 4-15 ity of abdominal abdominal 00:00: [place] pain pain [facility] Contracept Contracept Disease Active U roxana fredis fredis 3-03 ity of management [place] [facility] Vaginal Vaginal Disease Active Univers bleeding bleeding 3-03 ity of 00:00: [address] Allergies, Adverse Reactions, Alerts Allergy Allergy Status Severity Reaction(s) Onset Inactive Treating Comm ents Source Name Type Date Date Clinician No Known DA Active [facility]ie 9-21 [place] [facility] NO KNOWN Drug Active Univers ALLERGIE Class ity of S [facility] Social History Social Habit Start Date Stop Date Quantity Comments Source ASSERTION 2021-04-23 University 00:00:00 [facility] History of Current smoker University of tobacco use [facility] Alcohol intake 2022-09-05 2022-09-05 0 /d University of 00:00:00 00:00:00 [facility] Exposure to 2022-08-05 2022-08-15 Not sure [facility] SARS-CoV-2 00:00:00 10:54:00 [facility] [place] Tobacco use and 2022-08-08 2022-08-08 Smokeless tobacco Un iversity of exposure 00:00:00 00:00:00 non-user [facility] Sex Assigned At [birth year] Universit y of 00:00:00 00:00:00 [facility] Smoking Status Start Date Stop Date Source Ex-smoker 2022-08-08 00:00:00 2022-08-08 00:00:00 Universi ty of [facility] Medications Ordered Filled Start Stop Current Ordering Indication Dosage Frequency Signature Comments Components Source Medication Medication Date Date Medication? Clinician (SIG) Name Name metroNIDAZO 2021-11- No [id number] 500mg Take 1 Univers LE 500 mg 0-17 10-25 tablet by ity of tablet 00:00: 04:59 mouth [place] 00 :00 every 12 Medical (twelve) Branch hours for 7 days. metroNIDAZO 2021-11- No [id number] 500mg Take 1 Univers LE 500 mg 0-17 10-25 tablet by ity of tablet 00:00: 04:59 mouth [place] 00 :00 every 12 Medical (twelve) Branch hours for 7 days. ALPRAZolam 2021-11 Yes .5mg Take 0.5 Uni vers 0.5 mg 0-10 mg by ity of tablet 00:00: mouth in [place] [address] the Medical morning Branch and 0.5 mg at noon and 0.5 mg in the evening. propranoloL 2021-11 Yes Univer s 20 mg 0-10 ity of tablet 00:00: [place] 00 [facility] desvenlafax 2021-11 Yes Univer s ine 0-10 ity of succinate 00:00: [place] 25 mg Tb24 [facility] Branch ALPRAZolam 2021-11 Yes .5mg Take 0.5 Uni vers 0.5 mg 0-10 mg by ity of tablet 00:00: mouth in [place] [address] the Medical morning Branch and 0.5 mg at noon and 0.5 mg in the evening. propranoloL 2021-11 Yes Univer s 20 mg 0-10 ity of tablet 00:00: [place] 00 [facility] desvenlafax 2021-11 Yes Univer s ine 0-10 [...] :00 ONCE, 1 Medical dose, On Branch [facility] 08/11/22 at 1915, Routine ketorolac 2021- No 30mg 30 mg, Unive rs (TORADOL) 08-12 Slow IV ity of injection 00:15: 23:29 [place], [place] 30 mg 00 :00 ONCE, 1 Medical dose, On Branch [facility] 08/11/22 at 1915, Routine morpHINE (4 [...] 08/11/22 at Medic al 1728, [facility], [facility] water for 2021- No PRN, Univers irrigation 08-11 Starting ity of irrigation 22:28: 02:16 on [facility] [place] solution 00 :19 08/11/22 at Medic al 1728, Branch Until [facility] 08/11/22 at 2116, Routine, Intra-op ondansetron [...] INTRA ity of (Vibramycin 22:15: 23:00 PROCEDURE, [place] ) capsule 00 :49 Starting Medica l [...] 1 Medical 20 mg dose, On Branch [facility] 08/11/22 at 1430, BRIGID 2022-0 Yes Take by Univer s vit 9-22 mouth. ity of calc,iron,f 19:16: [address] ( Branch VITAMIN ORAL) Yes Take by Univer s vit 9-22 mouth. ity of calc,iron,f 19:16: [address] ( Branch VITAMIN ORAL) Yes Take by Univer s vit 9-22 mouth. ity of calc,iron,f 19:16: [address] ( Branch VITAMIN ORAL) Yes Take by Univer s vit 9-22 mouth. ity of calc,iron,f 19:16: [address] ( Branch VITAMIN ORAL) Yes Take by Univer s vit 9-22 mouth. ity of calc,iron,f 19:16: [address] ( Branch VITAMIN ORAL) Yes Take by Univer s vit 9-22 mouth. ity of calc,iron,f 19:16: [address] ( Branch VITAMIN ORAL) Yes Take by Univer s vit 9-22 mouth. ity of calc,iron,f 19:16: [address] ( Branch VITAMIN ORAL) Yes Take by Univer s vit 9-22 mouth. ity of calc,iron,f 19:16: [address] ( Branch VITAMIN ORAL) Yes Take by Univer s vit 9-22 mouth. ity of calc,iron,f 19:16: [place] [address] Medical ( Branch VITAMIN ORAL) Yes Take by Univer s vit 9-22 mouth. ity of calc,iron,f 19:16: [place] [address] Medical ( Branch VITAMIN ORAL) Yes Take by Univer s vit 9-22 mouth. ity of calc,iron,f 19:16: [place] [address] Medical ( Branch VITAMIN ORAL) Yes Take by Univer s vit 9-22 mouth. ity of calc,iron,f 19:16: [place] [address] Medical ( Branch VITAMIN ORAL) Yes Take by Univer s vit 9-22 mouth. ity of calc,iron,f 19:16: [address] ( Branch VITAMIN ORAL) Yes Take by [facility] s vit 08-11 mouth. ity of calc,iron,f 19:16: [address] ( Branch VITAMIN ORAL) NaCl 0.9% 2021- No 1000mL at 999 Uni vers (NS) bolus 08-11 mL/hr, ity of infusion 17:15: 17:30 1,000 mL, [place] 1,000 mL 00 :[facility], On [place] 08/11/22 at 1215, STAT NaCl 0.9% 2021- No 1000mL at 999 Uni vers (NS) bolus 08-11 mL/hr, ity of infusion 17:15: 17:30 1,000 mL, [place] 1,000 mL 00 :00 [facility] dose, On [place] 08/11/22 at 1215, STAT morpHINE (4 2021- No 4mg 4 mg, Slow Univers mg/mL) 08-11 IV Push, ity of injection 4 16:45: 16:05 ONCE, 1 [place] mg 00 :00 dose, On [facility] 08/11/22 at 1145, STAT morpHINE (4 2021- No 4mg 4 mg, Slow Univers mg/mL) 08-11 IV Push, ity of injection 4 16:45: 16:05 ONCE, 1 [place] mg 00 :00 dose, On [facility] 08/11/22 at 1145, STAT proMETHazin 2021- No 12.5mg 12.5 mg, Univers e 08-11 IV ity of (PHENERGAN) 16:00: 16:09 [place], [place] 12.5 mg in 00 :00 ONCE, 1 Medica l NaCl 0.9% dose, On Branch (NS) 50 mL Donna IV 08/11/22 at piggyback 1100, BRIGID proMETHazin 2021- No 12.5mg 12.5 mg, Univers e 08-11 IV ity of (PHENERGAN) 16:00: 16:[address] [place] 12.5 mg in 00 :00 ONCE, [...] 08/11/22 at 1015, BRIGID ibuprofen 2021-0 Yes [id number] 800mg Take 1 Univers 800 mg 9-22 tablet by ity of tablet 00:00: mouth [place] 00 every 6 Medical (six) Branch hours as needed for Alternate with [facility] for pain scale 4-6. amoxicillin 2021-0 Yes [id number] 500mg Take 1 Univers -pot 9-22 tablet by ity of clavulanate 00:00: mouth in [place] 500 mg 00 the Medical (AUGMENTIN) morning Branc h 500-125 mg and 1 tablet tablet at noon and 1 tablet in the evening. methylergon 2021-0 Yes [id number] 200ug Take 1 Univers ovine 0.2 9-22 tablet by ity o f mg tablet 00:00: mouth [place] 00 every 6 Medical (six) Branch hours. ibuprofen 2022-0 Yes [id number] 800mg Take 1 Univers 800 mg 9-22 tablet by ity of tablet 00:00: mouth [place] 00 every 6 Medical (six) Branch hours as needed for Alternate with [place] for pain scale 4-6. amoxicillin 2-0 Yes [id number] 500mg Take 1 Univers -pot 9-22 tablet by ity of clavulanate 00:00: mouth in [place] 500 mg 00 the Medical (AUGMENTIN) morning Branc h 500-125 mg and 1 tablet tablet at noon and 1 tablet in the evening. methylergon 2022-0 Yes [id number] 200ug Take 1 Univers ovine 0.2 9-22 tablet by ity o f mg tablet 00:00: mouth [place] 00 every 6 Medical (six) Branch hours. ibuprofen 2021-0 Yes [id number] 800mg Take 1 Univers 800 mg 9-22 tablet by ity of tablet 00:00: mouth [place] 00 every 6 Medical (six) Branch hours as needed for Alternate with [place] for pain scale 4-6. amoxicillin 2021-0 Yes [id number] 500mg Take 1 Univers -pot 9-22 tablet by ity of clavulanate 00:00: mouth in [place] 500 mg 00 the Medical (AUGMENTIN) morning Branc h 500-125 mg and 1 tablet tablet at noon and 1 tablet in the evening. methylergon 2021-0 Yes [id number] 200ug Take 1 Univers ovine 0.2 9-22 tablet by ity o f mg tablet 00:00: mouth [place] 00 every 6 Medical (six) Branch hours. ibuprofen 2021-0 Yes [id number] 800mg Take 1 Univers 800 mg 9-22 tablet by ity of tablet 00:00: mouth [place] 00 every 6 Medical (six) Branch hours as needed for Alternate with [place] for pain scale 4-6. amoxicillin 2021-0 Yes [id number] 500mg Take 1 Univers -pot 9-22 tablet by ity of clavulanate 00:00: mouth in [place] 500 mg 00 the Medical (AUGMENTIN) morning Branc h 500-125 mg and 1 tablet tablet at noon and 1 tablet in the evening. methylergon 2-0 Yes [id number] 200ug Take 1 Univers ovine 0.2 9-22 tablet by ity o f mg tablet 00:00: mouth [place] 00 every 6 Medical (six) Branch hours. ibuprofen 2022-0 Yes [id number] 800mg Take 1 Univers 800 mg 9-22 tablet by ity of tablet 00:00: mouth [place] 00 every 6 Medical (six) Branch hours as needed for Alternate with [place] for pain scale 4-6. amoxicillin 2-0 Yes [id number] 500mg Take 1 Univers -pot 9-22 tablet by ity of clavulanate 00:00: mouth in [place] 500 mg 00 the Medical (AUGMENTIN) morning Branc h 500-125 mg and 1 tablet tablet at noon and 1 tablet in the evening. methylergon 2022-0 Yes [id number] 200ug Take 1 Univers ovine 0.2 9-22 tablet by ity o f mg tablet 00:00: mouth [place] 00 every 6 Medical (six) Branch hours. ibuprofen 2022-0 Yes [id number] 800mg Take 1 Univers 800 mg 9-22 tablet by ity of tablet 00:00: mouth [place] 00 every 6 Medical (six) Branch hours as needed for Alternate with [place] for pain scale 4-6. amoxicillin 202-0 Yes [id number] 500mg Take 1 Univers -pot 9-22 tablet by ity of clavulanate 00:00: mouth in [place] 500 mg 00 the Medical (AUGMENTIN) morning Branc h 500-125 mg and 1 tablet tablet at noon and 1 tablet in the evening. methylergon 2022-0 Yes [id number] 200ug Take 1 Univers ovine 0.2 9-22 tablet by ity o f mg tablet 00:00: mouth [place] 00 every 6 Medical (six) Branch hours. ibuprofen 2021-0 Yes [id number] 800mg Take 1 Univers 800 mg 9-22 tablet by ity of tablet 00:00: mouth [place] 00 every 6 Medical (six) Branch hours as needed for Alternate with [place] for pain scale 4-6. amoxicillin 2021-0 Yes [id number] 500mg Take 1 Univers -pot 9-22 tablet by ity of clavulanate 00:00: mouth in [place] 500 mg 00 the Medical (AUGMENTIN) morning Branc h 500-125 mg and 1 tablet tablet at noon and 1 tablet in the evening. methylergon 2022-0 Yes [id number] 200ug Take 1 Univers ovine 0.2 9-22 tablet by ity o f mg tablet 00:00: mouth [place] 00 every 6 Medical (six) Branch hours. ibuprofen 2022-0 Yes [id number] 800mg Take 1 Univers 800 mg 9-22 tablet by ity of tablet 00:00: mouth [place] 00 every 6 Medical (six) Branch hours as needed for Alternate with [place] for pain scale 4-6. amoxicillin 2022-0 Yes [id number] 500mg Take 1 Univers -pot 9-22 tablet by ity of clavulanate 00:00: mouth in [place] 500 mg 00 the Medical (AUGMENTIN) morning Branc h 500-125 mg and 1 tablet tablet at noon and 1 tablet in the evening. methylergon 2022-0 Yes [id number] 200ug Take 1 Univers ovine 0.2 9-22 tablet by ity o f mg tablet 00:00: mouth [place] 00 every 6 Medical (six) Branch hours. ibuprofen 2021-0 Yes [id number] 800mg Take 1 Univers 800 mg 9-22 tablet by ity of tablet 00:00: mouth [place] 00 every 6 Medical (six) Branch hours as needed for Alternate with [place] for pain scale 4-6. amoxicillin 2021-0 Yes [id number] 500mg Take 1 Univers -pot 9-22 tablet by ity of clavulanate 00:00: mouth in [place] 500 mg 00 the Medical (AUGMENTIN) morning Branc h 500-125 mg and 1 tablet tablet at noon and 1 tablet in the evening. methylergon 2021-0 Yes [id number] 200ug Take 1 Univers ovine 0.2 9-22 tablet by ity o f mg tablet 00:00: mouth [place] 00 every 6 Medical (six) Branch hours. ibuprofen 2021-0 Yes [id number] 800mg Take 1 Univers 800 mg 9-22 tablet by ity of tablet 00:00: mouth [place] 00 every 6 Medical (six) Branch hours as needed for Alternate with [place] for pain scale 4-6. amoxicillin 2021-0 Yes [id number] 500mg Take 1 Univers -pot 9-22 tablet by ity of clavulanate 00:00: mouth in [place] 500 mg 00 the Medical (AUGMENTIN) morning Branc h 500-125 mg and 1 tablet tablet at noon and 1 tablet in the evening. methylergon 2-0 Yes [id number] 200ug Take 1 Univers ovine 0.2 9-22 tablet by ity o f mg tablet 00:00: mouth [place] 00 every 6 Medical (six) Branch hours. ibuprofen 2022-0 Yes [id number] 800mg Take 1 Univers 800 mg 9-22 tablet by ity of tablet 00:00: mouth [place] 00 every 6 Medical (six) Branch hours as needed for Alternate with [place] for pain scale 4-6. methylergon 2022-0 Yes [id number] 200ug Take 1 Univers ovine 0.2 9-22 tablet by ity o f mg tablet 00:00: mouth [place] 00 every 6 Medical (six) Branch hours. ibuprofen Yes [id number] 800mg Take 1 Univers 800 mg 9-22 tablet by ity of tablet 00:00: mouth [place] 00 every 6 Medical (six) Branch hours as needed for Alternate with [place] for pain scale 4-6. methylergon Yes [id number] 200ug Take 1 Univers ovine 0.2 9-22 tablet by ity o f mg tablet 00:00: mouth [place] 00 every 6 Medical (six) Branch hours. amoxicillin 2021- No [id number] 500mg Take 1 Univers -pot 9-22 10-17 tablet by ity of clavulanate 00:00: 00:00 mouth in [place] 500 mg 00 :00 the Medical (AUGMENTIN) morning Branc h 500-125 mg and 1 tablet tablet at noon and 1 tablet in the evening. amoxicillin 2021- No [id number] 500mg Take 1 Univers -pot 9-22 10-17 [...] Indication s: acute pain ondansetron 2-0 Yes [id number] 8mg Take 1 Univers 8 mg 9-21 tablet by ity of disintegrat 00:00: mouth [place] ing tablet 00 every 8 Medica l (eight) Branch hours as needed for Nausea and Vomiting (N/V). ondansetron 2022-0 Yes [id number] 8mg Take 1 Univers 8 mg 9-21 tablet by ity of disintegrat 00:00: mouth [place] ing tablet 00 every 8 Medica l (eight) Branch hours as needed for Nausea and Vomiting (N/V). ondansetron 2022-0 Yes [id number] 8mg Take 1 Univers 8 mg 9-21 tablet by ity of disintegrat 00:00: mouth [place] ing tablet 00 every 8 Medica l (eight) Branch hours as needed for Nausea and Vomiting (N/V). ondansetron 2-0 Yes [id number] 8mg Take 1 Univers 8 mg 9-21 tablet by ity of disintegrat 00:00: mouth [place] ing tablet 00 every 8 Medica l (eight) Branch hours as needed for Nausea and Vomiting (N/V). ondansetron 2021-0 Yes [id number] 8mg Take 1 Univers 8 mg 9-21 tablet by ity of disintegrat 00:00: mouth [place] ing tablet 00 every 8 Medica l (eight) Branch hours as needed for Nausea and Vomiting (N/V). ondansetron 2021-0 Yes [id number] 8mg Take 1 Univers 8 mg 9-21 tablet by ity of disintegrat 00:00: mouth [place] ing tablet 00 every 8 Medica l (eight) Branch hours as needed for Nausea and Vomiting (N/V). ondansetron 2021-0 Yes [id number] 8mg Take 1 Univers 8 mg 9-21 tablet by ity of disintegrat 00:00: mouth [place] ing tablet 00 every 8 Medica l (eight) Branch hours as needed for Nausea and Vomiting (N/V). ondansetron 2021-0 Yes [id number] 8mg Take 1 Univers 8 mg 9-21 tablet by ity of disintegrat 00:00: mouth [place] ing tablet 00 every 8 Medica l (eight) Branch hours as needed for Nausea and Vomiting (N/V). ondansetron 2021-0 Yes [id number] 8mg Take 1 Univers 8 mg 9-21 tablet by ity of disintegrat 00:00: mouth [place] ing tablet 00 every 8 Medica l (eight) Branch hours as needed for Nausea and Vomiting (N/V). ondansetron 2-0 Yes [id number] 8mg Take 1 Univers 8 mg 9-21 tablet by ity of disintegrat 00:00: mouth [place] ing tablet 00 every 8 Medica l (eight) Branch hours as needed for Nausea and Vomiting (N/V). ondansetron 2-0 Yes [id number] 8mg Take 1 Univers 8 mg 9-21 tablet by ity of disintegrat 00:00: mouth [place] ing tablet 00 every 8 Medica l (eight) Branch hours as needed for Nausea and Vomiting (N/V). ondansetron 0 Yes [id number] 8mg Take 1 Univers 8 mg 9-21 tablet by ity of disintegrat 00:00: mouth [place] ing tablet 00 every 8 Medica l (eight) Branch hours as needed for Nausea and Vomiting (N/V). ondansetron 0 Yes [id number] 8mg Take 1 Univers 8 mg 9-21 tablet by ity of disintegrat 00:00: mouth [place] ing tablet 00 every 8 Medica l (eight) Branch hours as needed for Nausea and Vomiting (N/V). ondansetron 0 Yes [id number] 8mg Take 1 Univers 8 mg 9-21 tablet by ity of disintegrat 00:00: mouth [place] ing tablet 00 every 8 Medica l (eight) Branch hours as needed for Nausea and Vomiting (N/V). LORazepam Yes TAKE 1 Univer s 0.5 mg 9-21 TABLET BY ity of tablet 00:00: MOUTH [place] 00 EVERY 8 Medical HOURS Branch NEEDED FOR ANXIETY ondansetron 0 Yes [id number] 8mg Take 1 Univers 8 mg 9-21 tablet by ity of disintegrat 00:00: mouth [place] ing tablet 00 every 8 Medica l (eight) Branch hours as needed for Nausea and Vomiting (N/V). LORazepam Yes TAKE 1 Univer s 0.5 mg 9-21 TABLET BY ity of tablet 00:00: MOUTH [place] 00 EVERY 8 Medical HOURS Branch NEEDED FOR ANXIETY Yes Take by Here On [facility] s vit 9-19 mouth. ity of calc,iron,f 11:16: [place] [address] Medical ( Branch VITAMIN ORAL) Yes Take by Here On [facility] s vit 9-19 mouth. ity of calc,iron,f 11:16: [place] [address] Medical ( Branch VITAMIN ORAL) 0 Yes Take by Here On [facility]izer s vit 9-19 mouth. ity of calc,iron,f 11:16: [place] [address] Medical ( Branch VITAMIN ORAL) 0 Yes Take by Here On [facility] s vit 9-19 mouth. ity of calc,iron,f 11:16: [place] [address] Medical ( Branch VITAMIN ORAL) TRAMADOL-AC No [...] etamine 20 00:00: [place] mg tablet 00 [facility] dextroamphe Yes Univer s tamine-amph 8-18 ity of etamine 20 00:00: [place] mg tablet 00 [facility] dextroamphe Yes Univer s tamine-amph 8-18 ity of etamine 20 00:00: [place] mg tablet 00 [facility] dextroamphe Yes Univer s tamine-amph 8-18 ity of etamine 20 00:00: [place] mg tablet 00 [facility] dextroamphe Yes Univer s tamine-amph 8-18 ity of etamine 20 00:00: [place] mg tablet 00 [facility] dextroamphe Yes Univer s tamine-amph 8-18 ity of etamine 20 00:00: [place] mg tablet 00 [facility] zolpidem 10 Yes TAKE 1/2 [place] mg tablet 7-18 TO 1 ity of 00:00: TABLET BY [place] MOUTH Medical DAILY AT [facility] zolpide 10 Yes TAKE 1/2 [place] mg tablet 7-18 TO 1 ity of 00:00: TABLET BY [place] MOUTH Medical DAILY AT [facility] zolpide 10 Yes TAKE 1/2 [place] mg tablet 7-18 TO 1 ity of 00:00: TABLET BY [place] MOUTH Medical DAILY AT [facility] zolpide 10 Yes TAKE 1/2 [place] mg tablet 7-18 TO 1 ity of 00:00: TABLET BY [place] MOUTH Medical DAILY AT [facility] zolpidem 10 Yes TAKE 1/2 [place] mg tablet 7-18 TO 1 ity of 00:00: TABLET BY [place] MOUTH Medical DAILY AT [facility] zolpidem 10 Yes TAKE 1/2 Un [place] mg tablet 7-18 TO 1 ity of 00:00: TABLET BY [place] [address] MOUTH Medical DAILY AT [facility] zolpidem 10 Yes TAKE 1/2 Un [place] mg tablet 7-18 TO 1 ity of 00:00: TABLET BY [place] [address] MOUTH Medical DAILY AT [facility] zolpidem 10 Yes TAKE 1/2 Un [place] mg tablet 7-18 TO 1 ity of 00:00: TABLET BY [place] [address] MOUTH Medical DAILY AT [facility] zolpide 10 Yes TAKE 1/2 Un [place] mg tablet 7-18 TO 1 ity of 00:00: TABLET BY [place] [address] MOUTH Medical DAILY AT [facility] zolpide 10 Yes TAKE 1/2 Un [place] mg tablet 7-18 TO 1 ity of 00:00: TABLET BY [place] [address] MOUTH Medical DAILY AT [facility] zolde 10 Yes TAKE 1/2 Un [place] mg tablet 7-18 TO 1 ity of 00:00: TABLET BY [place] [address] MOUTH Medical DAILY AT [facility] zolde 10 Yes TAKE 1/2 Un [place] mg tablet 7-18 TO 1 ity of 00:00: TABLET BY [place] [address] MOUTH Medical DAILY AT [facility] zolpide 10 Yes TAKE 1/2 Un [place] mg tablet 7-18 TO 1 ity of 00:00: TABLET BY [place] [address] MOUTH [facility] DAILY AT [facility] [place] [id number] Yes TAKE 1/2 Un [place] mg tablet 7-18 TO 1 ity of 00:00: TABLET BY [place] [address] MOUTH [facility] DAILY AT [facility] Yes TAKE 1/2 Un [place] mg tablet 7-18 TO 1 ity of 00:00: TABLET BY [place] [address] MOUTH Medical DAILY AT [facility] zolde 10 Yes TAKE 1/2 Un [place] mg tablet 7-18 TO 1 ity of 00:00: TABLET BY [place] [address] MOUTH Medical DAILY AT [facility] zolde 10 Yes TAKE 1/2 Un [place] mg tablet 7-18 TO 1 ity of 00:00: TABLET BY [place] [address] MOUTH Medical DAILY AT [facility] zolde 10 Yes TAKE 1/2 Un [place] mg tablet 7-18 TO 1 ity of 00:00: TABLET BY [place] [address] MOUTH Medical DAILY AT [facility] [facility] desvenlafax Yes Univer s ine 7-15 ity of succinate 00:00: [place] 50 mg 24 hr 00 Medical [facility] Un[facility]e 7-15 ity of [...] 00 Medical tablet Branch desvenlafax 2021-0 Yes [place] [facility] ine 7-15 ity of succinate 00:00: [place] 50 mg 24 hr 00 Medical tablet Branch desvenlafax 0 Yes [place] [facility] ine 7-15 ity of succinate 00:00: [place] 50 mg 24 hr 00 Medical tablet Branch 2020-11 Yes Take by [place] [facility] vit 2-09 mouth. ity of calc,iron,f 14:57: [place] [id number] Medical ([facility] Branch VITAMIN ORAL) 2020-11 Yes Take by [place] [facility] vit 2-09 mouth. ity of calc,iron,f 14:57: [facility] 53 Medical ([facility] Branch VITAMIN ORAL) Nitrofurant 2020-11 Yes [id number] 100mg Take 1 Univers oin&Nit. 1-26 capsule by ity o f [place] 00:[place] 100 [place] 00 (two) Medical capsule times [place] daily. Nitrofurant 2020-11- No [id number] 100mg Take 1 Univers oin&Nit. 1-26 12-10 capsule by ity of Macrocryst 00:00: 00:00 mouth 2 [place] 100 mg 00 :00 (two) Medical capsule times [place] daily. haloperidol 2020- No 2.5mg 2.5 mg, [...] 01/29/21 at Branch 0915, STAT ondansetron Yes [id number] 4mg Take 1 Univers 4 mg 3-12 tablet by ity of disintegrat 00:00: mouth [place] ing tablet 00 every 8 Medica l (eight) Branch hours as needed for Nausea and Vomiting (N/V). ondansetron Yes [id number] 4mg Take 1 Univers 4 mg 3-12 tablet by ity of disintegrat 00:00: mouth [place] ing tablet 00 every 8 Medica l (eight) Branch hours as needed for Nausea and Vomiting (N/V). ondansetron Yes [id number] 4mg Take 1 Univers 4 mg 3-12 tablet by ity of disintegrat 00:00: mouth [place] ing tablet 00 every 8 Medica l (eight) Branch hours as needed for Nausea and Vomiting (N/V). ondansetron 2020- No [id number] 4mg Take 1 Univers 4 mg 3-12 12-10 tablet by ity of disintegrat 00:00: 00:00 [place] tablet [place] :00 every 8 Medica l (eight) Branch hours as needed for Nausea and Vomiting (N/V). cephALEXin 2020- No [id number] 500mg Take 1 Univers (KEFLEX) 3-12 03-20 capsule by ity of 500 mg 00:00: 04:59 mouth 3 [place] capsule 00 :00 (three) Medical times Branch daily for 7 days. dicyclomine 2020- No [id number] 10mg Take 1 Univers (BENTYL) 10 3-12 03-18 capsule by i ty of mg capsule 00:00: 04:59 mouth [place] 00 :00 every 8 Medical (eight) Branch hours as needed for Abdominal pain for up to 5 days. Immunizations Ordered Filled Immunization Date Status Comments [facility] e Immunization Name Name [facility] 2012-11-20 Completed University of 00:00:00 [facility] 2012-11-20 Completed University of 00:00:00 [facility] 2012-11-20 Completed University of 00:00:00 [facility] 2012-11-20 Completed [facility] Completed University of 00:00:00 [facility] TDAP 2012-11-20 Completed University of 00:00:00 [facility] Branch TDAP 2012-11-20 Completed University of 00:00:00 [facility] Branch TDAP 2012-11-20 Completed University of 00:00:00 [facility] Branch TDAP 2012-11-20 Completed University of 00:00:00 [facility] Branch TDAP 2012-11-20 Completed University of 00:00:00 [facility] Branch TDAP 2012-11-20 Completed University of 00:00:00 [facility] Branch TDAP 2012-11-20 Completed University of 00:00:00 [facility] Branch TDAP 2012-11-20 Completed University of 00:00:00 [facility] Branch TDAP 2012-11-20 Completed University of 00:00:00 [facility] Branch TDAP 2012-11-20 Completed University of 00:00:00 [facility] Branch TDAP 2012-11-20 Completed University of 00:00:00 [facility] TDAP 2012-11-20 Completed University of 00:00:00 [facility] TDAP 2012-11-20 Completed University of 00:00:00 [facility] TDAP 2012-11-20 Completed University of 00:00:00 [facility] TDAP 2012-11-20 Completed University of 00:00:00 [facility] TDAP 2012-11-20 Completed University of 00:00:00 [facility] DTAP 2002-02-27 Completed University of 00:00:00 [facility] Polio (IPV/OPV) 2002-02-27 Completed Universit y of 00:00:00 [facility] MMR 2002-02-27 Completed University of 00:00:00 [facility] Pneumococcal 7 2002-02-27 Completed University of Conjugate, PCV7 00:00:00 [place] [facility] ical (Prevnar7) Branch DTAP 2002-02-27 Completed University of 00:00:00 [facility] MMR 2002-02-27 Completed University of 00:00:00 [facility] Pneumococcal 7 2002-02-27 Completed University of Conjugate, PCV7 00:00:00 [place] [facility] ical (Prevnar7) Branch Polio (IPV/OPV) 2002-02-27 Completed Universit y of 00:00:00 [facility] DTAP 2002-02-27 Completed University of 00:00:00 [facility] Polio (IPV/OPV) 2002-02-27 Completed Universit y of 00:00:00 [facility] MMR 2002-02-27 Completed University of 00:00:00 [facility] Pneumococcal 7 2002-02-27 Completed University of Conjugate, PCV7 00:00:00 [place] ical (Prevnar7) Branch DTAP 2002-02-27 Completed University of 00:00:00 [facility] MMR 2002-02-27 Completed University of 00:00:00 [facility] Pneumococcal 7 2002-02-27 Completed University of Conjugate, PCV7 00:00:00 [place] ical (Prevnar7) Branch Polio (IPV/OPV) 2002-02-27 Completed Universit y of 00:00:00 [facility] DTAP 2002-02-27 Completed University of 00:00:00 [facility] Polio (IPV/OPV) 2002-02-27 Completed Universit y of 00:00:00 [facility] MMR 2002-02-27 Completed University of 00:00:00 [facility] Pneumococcal 7 2002-02-27 Completed University of Conjugate, PCV7 00:00:00 [place] ical (Prevnar7) Branch DTAP 2002-02-27 Completed University of 00:00:00 [facility] MMR 2002-02-27 Completed University of 00:00:00 [facility] Pneumococcal 7 2002-02-27 Completed University of Conjugate, PCV7 00:00:00 [place] [facility] ical (Prevnar7) Branch Polio (IPV/OPV) 2002-02-27 Completed Universit y of 00:00:00 [facility] DTAP 2002-02-27 Completed University of 00:00:00 [facility] Polio (IPV/OPV) 2002-02-27 Completed Universit y of 00:00:00 [facility] MMR 2002-02-27 Completed University of 00:00:00 [facility] Pneumococcal 7 2002-02-27 Completed University of Conjugate, PCV7 00:00:00 [place] ical (Prevnar7) Branch DTAP 2002-02-27 Completed University of 00:00:00 [facility] MMR 2002-02-27 Completed University of 00:00:00 [facility] Branch Pneumococcal 7 2002-02-27 Completed University of Conjugate, PCV7 00:00:00 [place] [facility] ical (Prevnar7) Branch Polio (IPV/OPV) 2002-02-27 Completed Universit y of 00:00:00 [facility] DTAP 2002-02-27 Completed University of 00:00:00 [facility] Branch Polio (IPV/OPV) 2002-02-27 Completed Universit y of 00:00:00 [facility] Branch MMR 2002-02-27 Completed University of 00:00:00 [facility] Branch Pneumococcal 7 2002-02-27 Completed University of Conjugate, PCV7 00:00:00 [place] [facility] ical (Prevnar7) Branch DTAP 2002-02-27 Completed University of 00:00:00 [facility] Branch MMR 2002-02-27 Completed University of 00:00:00 [facility] Branch Pneumococcal 7 2002-02-27 Completed University of Conjugate, PCV7 00:00:00 [place] [facility] ical (Prevnar7) Branch Polio (IPV/OPV) 2002-02-27 Completed Universit y of 00:00:00 [facility] Vital Signs Vital Name Observation Time Observation Value Comments Source Systolic blood 2022-09-05 20:16:00 116 mm[Hg] Univer sity of pressure [facility] Diastolic blood 2022-09-05 20:16:00 78 mm[Hg] Unive rsity of [facility] Heart rate 2022-09-05 20:16:00 75 /min Universi ty [facility] Body temperature 2022-09-05 20:16:00 36.67 [facility] 2022-09-05 20:16:00 18 /min [facility] Body height 2022-09-05 20:16:00 [facility] Body weight 2022-09-05 20:16:00 52.617 kg [facility] BMI 2022-09-05 20:16:00 21.92 kg/m2 Universi ty [facility] Systolic blood 2022-08-16 21:29:00 117 mm[Hg] Univer sity of pressure [facility] Diastolic blood 2022-08-16 21:29:00 78 mm[Hg] Unive rsity of pressure [facility] Heart rate 2022-08-16 21:29:00 84 /min Universi ty [facility] Body temperature 2022-08-16 21:29:00 36.94 [facility] [facility] Respiratory rate 2022-08-16 21:29:00 18 /min Univ ersity of [facility] Body height 2022-08-16 21:29:00 154.9 cm Universi ty of [place] [facility] [place] Body weight 2022-08-16 21:29:00 55.475 kg Universi ty of [place] [facility] BMI 2022-08-16 21:29:00 23.11 kg/m2 Universi ty of [facility] Systolic blood 2022-08-12 20:22:00 115 mm[Hg] Univer sity of pressure [place] [facility] Diastolic blood 2022-08-12 20:22:00 78 mm[Hg] Unive rsity of pressure [facility] Heart rate 2022-08-12 20:22:00 67 /min Universi ty of [facility] Body temperature 2022-08-12 20:22:00 36.78 Blanka Univ ersity of [facility] Body height 2022-08-12 20:22:00 154.9 cm Universi ty of [place] [facility] [place] Body weight 2022-08-12 20:22:00 54.976 kg Universi ty of [place] [facility] BMI 2022-08-12 20:22:00 22.90 kg/m2 Universi ty of [place] [facility] Systolic blood 2022-08-11 23:55:00 114 mm[Hg] Univer sity of pressure [place] [facility] Diastolic blood 2022-08-11 23:55:00 69 mm[Hg] Unive rsity of pressure [place] [facility] [place] Heart rate 2022-08-11 23:55:00 67 /min Universi ty of [facility] Oxygen saturation in 2022-08-11 23:55:00 100 /min [facility] Arterial blood by [facility] Pulse oximetry Branch Respiratory rate 2022-08-11 23:35:00 13 /min Univ ersity of [facility] Body temperature 2022-08-11 23:04:00 36.39 Blanka Univ ersity of [facility] Body height 2022-08-11 14:29:00 154.9 cm Universi ty of [place] [facility] Body weight 2022-08-11 14:29:00 53.615 kg Universi ty of [place] [facility] BMI 2022-08-11 14:29:00 22.33 kg/m2 Universi ty of [facility] Branch Systolic blood 2022-08-11 23:05:00 107 mm[Hg] Univer sity of pressure [place] [facility] Diastolic blood 2022-08-11 23:05:00 65 mm[Hg] Unive rsity of pressure [place] [facility] Heart rate 2022-08-11 23:05:00 88 /min Universi ty of [place] [facility] Oxygen saturation in 2022-08-11 23:05:00 96 /min University of Arterial blood by [facility] Pulse oximetry Branch Body temperature 2022-08-11 23:04:00 36.39 Blanka Univ ersity of [place] [facility] Respiratory rate 2022-08-11 21:27:00 16 /min Univ ersity of [place] [facility] Body height 2022-08-11 14:29:00 154.9 cm Universi ty of [place] [facility] Body weight 2022-08-11 14:29:00 53.615 kg Universi ty of [place] [facility] BMI 2022-08-11 14:29:00 22.33 kg/m2 Universi ty of [place] [facility] Systolic blood 2022-08-08 16:18:00 112 mm[Hg] Univer sity of pressure [place] [facility] Diastolic blood 2022-08-08 16:18:00 74 mm[Hg] Unive rsity of pressure [place] [facility] Heart rate 2022-08-08 16:18:00 76 /min Universi ty of [place] [facility] Body temperature 2022-08-08 16:18:00 36.67 Blanka Univ ersity of [place] [facility] Respiratory rate 2022-08-08 16:18:00 16 /min Univ ersity of [place] [facility] Body height 2022-08-08 16:18:00 154.9 cm Universi ty of [place] [facility] Body weight 2022-08-08 16:18:00 54.205 kg Universi ty of [place] [facility] BMI 2022-08-08 16:18:00 22.58 kg/m2 Universi ty of [place] [facility] Oxygen saturation in 2022-08-08 16:18:00 98 /min University of Arterial blood by [facility] Pulse oximetry Branch Systolic blood 2021-10-28 20:56:00 113 mm[Hg] Univer sity of pressure [place] [facility] Diastolic blood 2021-10-28 20:56:00 75 mm[Hg] Unive rsity of pressure [place] [facility] Heart rate 2021-10-28 20:56:00 92 /min Universi ty of [place] [facility] Body temperature 2021-10-28 20:56:00 36.83 Blanka Univ ersity of [place] [facility] Respiratory rate 2021-10-28 20:56:00 18 /min Univ ersity of [place] [facility] Body height 2021-10-28 20:56:00 154.9 cm Universi ty of [place] [facility] Body weight 2021-10-28 20:56:00 74.39 kg Universi ty of [place] [facility] BMI 2021-10-28 20:56:00 30.99 kg/m2 Universi ty of [place] [facility] Heart rate 2021-10-15 02:00:00 74 /min Universi ty of [place] [facility] Oxygen saturation in 2021-10-15 02:00:00 99 /min University of Arterial blood by [place] [employer] [facility] Pulse oximetry Branch Systolic blood 2021-10-15 01:15:00 111 mm[Hg] Univer sity of pressure [place] [facility] Diastolic blood 2021-10-15 01:15:00 65 mm[Hg] Unive rsity of pressure [place] [facility] Body temperature 2021-10-15 01:15:00 36.78 Blanka Univ ersity of [place] [facility] Respiratory rate 2021-10-15 01:15:00 18 /min Univ ersity of [place] [facility] Body weight 2021-10-15 00:49:00 68.04 kg Universi ty of [place] [facility] Systolic blood 2021-01-29 15:30:00 119 mm[Hg] Univer sity of pressure [place] [facility] Diastolic blood 2021-01-29 15:30:00 81 mm[Hg] Unive rsity of pressure [place] [facility] Heart rate 2021-01-29 15:30:00 65 /min Universi ty of [place] [facility] Respiratory rate 2021-01-29 15:30:00 17 /min Univ ersity of [place] [facility] Oxygen saturation in 2021-01-29 15:30:00 98 /min University of Arterial blood by [place] [employer] juany Pulse oximetry Branch Body temperature 2021-01-29 14:10:00 37.06 Blanka Univ ersity of [place] [facility] Body weight 2021-01-29 14:10:00 68.04 kg Universi ty of [place] [facility] Height Measured 2022-07-28 14:31:00 63.00 inches Body Temperature 2022-07-28 14:31:00 98.50 degrees Heart Rate 2022-07-28 14:31:00 77.00 /min Respiratory Rate 2022-07-28 14:31:00 BP Systolic 2022-07-28 14:31:00 106 mm[Hg] BP Diastolic 2022-07-28 14:31:00 74 mm[Hg] Weight Measured 2022-07-28 14:31:00 122.60 pounds Procedures Procedure Date / Time Performing Clinician Source Performed EXTERNAL PROVIDER RECORDS 2022-08-15 05:01:00 Doctor Unassigned, [facility] [place] [facility] US PELVIS LIMITED 2022-08-11 22:51:00 Adum, Lisset Longoria [facility] DILATION AND CURETTAGE 2022-08-11 21:47:00 Adum, Lisset Longoria [facility] COVID-19 (ID NOW RAPID 2022-08-11 20:13:00 Juany Burk [facility] TESTING) Medical Branch COVID-19 (ID NOW RAPID 2022-08-11 20:13:00 Juany Burk [facility] TESTING) Medical Branch LAB ONLY COVID 2022-08-11 20:13:00 Juany Burk [facility] INTERPRETATION [facility] US FIRST 2022-08-11 17:58:08 Kia Dailey [facility] TRIMESTER LESS THAN 14 Medical B ranch WEEKS WITH TRANSVAGINAL US FIRST 2022-08-11 17:58:08 Kia Dailey [facility] TRIMESTER LESS THAN 14 Medical B ranch WEEKS WITH TRANSVAGINAL ABORH CONFIRMATION (LAB 2022-08-11 16:12:00 Kia Dailey [facility] ONLY) [facility] Branch ABORH CONFIRMATION (LAB 2022-08-11 16:12:00 Kia Dailey [facility] ONLY) Medical Branch HB ABO GROUPING 2022-08-11 14:48:00 Kia Dailey [facility] HB ABO GROUPING 2022-08-11 14:48:00 Kia Dailey [facility] LIPASE 2022-08-11 14:42:00 Kia Dailey [facility] MAGNESIUM 2022-08-11 14:42:00 Kia Dailey Kimmy [facility] COMP. METABOLIC PANEL 2022-08-11 14:42:00 Kia Dailey [facility] ([id number]) [facility] TOTAL BETA HCG ASSAY 2022-08-11 14:42:00 Juany Burk [facility] CBC WITH DIFF 2022-08-11 14:42:00 Ashlie, [facility] URINALYSIS 2022-08-11 14:42:00 Juany Burk [facility] LIPASE 2022-08-11 14:42:00 Kia Dailey Kim[facility] MAGNESIUM 2022-08-11 14:42:00 Kia Dailey [facility] COMP. METABOLIC PANEL 2022-08-11 14:42:00 Kia Dailey [facility] ([id number]) [facility] TOTAL BETA HCG ASSAY 2022-08-11 14:42:00 Juany Burk [facility] CBC WITH DIFF 2022-08-11 14:42:00 Kia Dailey [facility] URINALYSIS 2022-08-11 14:42:00 Juany Burk [facility] CONSENT/REFUSAL FOR 2022-08-11 14:23:47 Doctor Heather [facility] DIAGNOSIS AND TREATMENT [place] [facility] CONSENT/REFUSAL FOR 2022-08-11 14:23:47 Doctor Unaluz [facility] DIAGNOSIS AND TREATMENT [place] [facility] US FIRST 2022-08-09 19:12:00 Arlyn Garber [facility] TRIMESTER LESS THAN 14 Medical B ranch WEEKS WITH TRANSVAGINAL POCT TEST 2022-08-08 00:00:00 Arlyn Garber [facility] DSU PRE-OP 2021-10-28 06:01:00 Doctor Heather [facility] Name [facility] POCT URINALYSIS W/O 2021-10-28 00:00:00 Lisset Calhoun [facility] SPECIFIC GRAVITY Medical Branch CONSENT/REFUSAL FOR 2021-10-15 00:42:20 Doctor Heather, [facility] DIAGNOSIS AND TREATMENT [place] [facility] [place] POCT TEST 2021-01-29 16:14:00 José Miguel Lowery [facility] URINALYSIS 2021-01-29 16:11:00 Singer [facility] COMP. METABOLIC PANEL 2021-01-29 14:24:00 José Miguel Lowery [facility] ([id number]) [place] CBC WITH DIFF 2021-01-29 14:24:00 Lowery [facility] NOTICE OF PRIVACY 2021-01-29 13:58:25 Doctor Unassigned, [facility] [place] [facility] NOTICE OF PRIVACY 2021-01-29 13:58:11 Doctor Unassigned, [facility] [place] [facility] [place] Plan of Care Planned Activity Planned Date Details Comments Source Goal Plan of Care Note [code = 05899-5] Goal Plan of Care Note [code = 33524-4] Goal Plan of Care Note [code = 63102-6] Goal Plan of Care Note [code = 60302-7] Goal Plan of Care Note [code = 75063-4] Goal Plan of Care Note [code = 84949-6] Goal Plan of Care Note [code = 17130-7] Encounters Start End Encounter Admission Attending Care Care Encounter Source Date/Time Date/Time Type Type Clinicians Facility Department ID 2023-07-21 2023-07-21 Outpatient SFA SFA [id number] Wai 15:42:22 15:42:[address] [facility] 2023-07-13 2023-07-13 Outpatient SFA SFA [id number] Wai 15:21:32 15:21:32 0824 F Danny 2023-04-24 2023-04-24 Outpatient SFA SFA [id number] Wai 15:32:18 15:32:18 0605 F Danny 2023-04-20 2023-04-20 Outpatient SFA SFA [id number] Wai 17:05:18 17:05:18 0601 F Danny 2023-03-062023-03-06 Outpatient R ARLYN GARBER [facility] [place] [id number] Univers 13:30:00 13:30:00 ARLYN GARBER [facility] 2022-09-05 2022-09-05 Outpatient R ARLYN GARBER [facility] B [id number] Univers 15:00:00 15:40:27 ARLYN GARBER [facility] 2022-09-05 2022-09-05 Office KAVITA Garber [place] [id number] Univers 15:00:00 15:40:27 Visit Arlyn CROWLEY [id number] it y of [place] [id number] [address] 2022-09-03 2022-09-03 Nurse Arlen Madden [id number] Univers 00:00:00 00:00:00 Triage KAYLEE 350.1.13.10 it y of HOSPITAL 4.2.7.2.686 [place] [id number] [address] 2022-08-31 2022-08-31 Chrome Cleaner Barrie, Keo Lab Main [facility] 1.2.8 40.114 [id number] Univers 12:45:00 13:00:00 Visit Arlyn Garber 350.1.13. 10 [place] of [place]2.[place] [id number] Fl dical [address] 2022-08-31 2022-08-31 Outpatient R ARLYN GARBER [facility] B [id number] Univers 12:45:00 12:45:00 ARLYN GARBER [facility] 2022-08-31 2022-08-31 Case Jcarlos ALNAZANIN [place] [id number] Univers 00:00:00 00:00:00 Management Arlyn CROWLEY [id number] it[place] [id number] [address] 2022-08-16 2022-08-16 Outpatient R ARLYN GARBER [facility] B [id number] Univers 16:30:00 16:59:16 TRIARLYN ALEGRIA [facility] 2022-08-16 2022-08-16 Office [facility] Southtaniya [facility] 1.2.840.114 [id number] Univers 16:30:00 16:59:16 Visit Arlyn CROWLEY 350.1.13.10 it [place] [id number] [address] 2022-08-15 2022-08-[address] [facility] [id number] Univers 14:00:00 14:00:00 ity of [facility] 2022-08-15 2022-08-15 Orders Doctor DAVID 1.2.840.114 [id number] Univers 00:00:00 00:00:00 Only Unassigned, KAYLEE 350.1.13.10 ity of [place] [facility] 4.2.7.2.686 [place] as [id number] [facility] 009 Branch 2022-08-13 2022-08-13 Nurse DAIVD Acevedo 1.2.840.114 [id number] Univers 00:00:00 00:00:00 Triage Melindaemy Longoria KAYLEE 350.1.13.10 ity of [facility] 4.2.7.2.686 [place] [id number] [facility] 019 Branch 2022-08-12 2022-08-12 Outpatient R ARLYN GARBER [facility] B [id number] Univers 15:15:00 15:59:51 [facility] 2022-08-12 2022-08-12 Routine [facility] 1.2.840.114 [id number] Univers 15:15:00 15:59:51 Arlyn CROWLEY 350.1.13.10 i ty of Visit [place] [id number] [address] 2022-08-11 2022-08-11 Outpatient X ADUM, [facility] ARAVIND [id number] Univers 09:31:00 19:05:00 LISSET ity of [facility] 2022-08-11 2022-08-11 Emergency Kia Dailey [facility] 1.2.840. 114 [id number] Univers 09:31:00 19:05:00 Adum, Lisset [place] 350.1.13.10 it[place] of [place]2.[place] [id number] [facility] 071 Branch 2022-08-11 2022-08-11 Surgery Adzulay, [facility] 1.2.840.114 [id number] Univers 16:45:00 18:06:00 Lisset LINCOLN 350.1.13.10 it[place] [id number] [facility] [address] 2022-08-11 2022-08-11 Anesthesia Fabi [facility] 1.2.840.114 9 [id number] Univers 17:03:00 18:00:00 Event Roger LINCOLN 350.1.13.10 [place] [id number] [facility] [address] 2022-08-11 2022-08-11 [facility] 1.2.840.11 4 [id number] Univers 00:00:00 00:00:00 Arlyn CROWLEY 350.1.13.10 it y of [place] [id number] [facility] [address] 2022-08-10 2022-08-10 Emergency Lorenzo Kelly [facility] DAMIAN LA00 990050 [facility] 07:03:00 11:45:00 28 [facility] 2022-08-09 2022-08-09 Outpatient R ARLYN GARBER [facility] B [id number] Univers 13:30:00 23:59:00 ARLYN GARBER [facility] 2022-08-09 2022-08-09 [facility] 1.2.840.114 9 [id number] Univers 13:30:00 23:59:00 Encounter Arlyn LINCOLN 350.1.13.10 ity of [place] 4.2.7.2.686 [facility] [id number] [facility] [address] 2022-08-09 2022-08-09 Telephone Jcarlos [facility] 1.2.840.11 4 [id number] Univers 00:00:00 00:00:00 Arlyn CROWLEY 350.1.13.10 it y of [place] 4[place]2.7.2.686 [place] CL[place]IC [id number] [facility] [address] 2022-08-09 2022-08-09 Case Jcarlos [facility] 1.2.840.114 [id number] Univers 00:00:00 00:00:00 Management Arlyn CROWLEY 350.1.13.10 ity of WOMEN'S 4.2.7.2.686 [facility] [id number] [address] 2022-08-08 2022-08-08 Outpatient R ARLYN GARBER [facility] B [id number] Univers 11:00:00 11:37:42 NIDAARLYN CARVALHO [facility] 2022-08-08 2022-08-08 Initial [facility] 1.2.840.114 [id number] Univers 11:00:00 11:37:42 Arlyn CROWLEY 350.1.13.10 i ty of Visit WOMEN'S 4.2.7.2.686 [facility] [id number] [address] 2022-08-05 2022-08-05 Outpatient R NIDAMAIA ARLYN [facility] B [id number] Univers 09:30:00 09:30:00 JCARLOSYVONNEKELLY eufemiashashi [facility] 2022-07-28 2022-07-28 Outpatient [id number] ce [id number] 00:00:00 00:00:00 Visit [id number] 2021-11-25 2021-11-25 Outpatient R GUANAKITO [facility] [id number] Univers 16:00:00 16:00:00 ity of [facility] 2021-11-11 2021-11-11 Outpatient Kathe DOMINIQUE [facility]KIT[facility] 00529 62102 Univers 15:45:00 15:45:00 ity [facility] 2021-11-03 2021-11-[address] [facility] [id number] Univers 16:40:00 16:40:00 ALEX ity [facility] 2021-10-28 2021-10-28 Initial FoxGuanakito Kev [facility] 1.2.840.114 [id number] Univers 14:39:23 16:29:30 Lisset Calhoun 350.1.13.10 ity of Visit [place] 4.2.7.2.686 [facility] [id number] Fl dical [address] 2021-10-28 2021-10-[address] [facility] [id number] Univers 14:30:00 16:29:30 LISSET [facility] 2021-10-28 2021-10-28 Orders Doctor DAVID 1.2.840.114 [id number] Univers 00:00:00 00:00:00 Only Unassigned, KAYLEE 350.1.13.10 ity of [place] [facility] 4.2.7.2.686 Oscar [id number] [facility] [address] 2021-10-14 2021-10-14 Outpatient X DOMINIQUE GUANAKITO [facility] ARAVIND 87429 [id number] Univers 18:50:00 20:22:00 ity of [facility] 2021-10-14 2021-10-14 Emergency Dominique Guanakito [facility] 1.2.840.114 [id number] Univers 18:50:00 20:22:00 Kev LINCOLN 350.1.13.10 i ty of [place] 4.2.7.2.686 [place] [facility] [id number] [facility] [address] 2021-01-29 2021-01-29 Emergency Singer [facility] 1.2.303.196 [id number] Univers 08:04:00 11:39:00 José Miguel [place] 350.1.13.10 i ty [place] 4.2.7.2.686 [facility] [id number] [facility] [address] 2021-01-29 2021-01-29 Emergency X SINGER [facility] ERT [id number] Univers 08:04:00 08:04:00 JOSÉ MIGUEL eufemiashashi of [facility] Results Test Description Test Time Test Comments Results Result Comments Source ABORH Confirmation (Lab Only) 2022-08-11 17:32:45 Test Item Value Reference Range Interpretation Comme nts ABO & RH (test code = 20) O Positive Pe rformed at [facility] Laboratory Services - [facility] Blood [address] [address]Toll Free: [phone] A No. [id number] [facility] Confirmation (Lab Only)2022-08-11 17:32:45 Test Item Value Reference Range Interpretation Comments ABO & RH (test code O Positive Performe d at [facility] = 20) Laboratory Serv [facility] Blood Bank1 [address] [address]Toll Free: [phone] A No. [id number] [facility] (QUANTITATIVE)2022-08-11 16:07:11 Test Item Value Reference Range Interpretation Comments BETA HCG (test See_Comment [Automated m essage] code = The system ic h [id number]) generated this result transmit blayne reference range : Non- fe male and male patien ts: <5 mIU/mL. The reference range was not used to interpret this result as normal/abnormal . TRUNG (test code Gestational Age ? ? = TRUNG) ?Range (mIU/mL) 1-10 ?Weeks ?92-30803578-46 Weeks ?12038-16409296-20 Weeks ?1793-19070468-83 Weeks ?9820-710677 Biotin has been reported to cause a negative bias, interpret results relative to patient's use of biotin. [facility] (QUANTITATIVE)2022-08-11 16:07:11 Test Item Value Reference Range Interpretation Comments BETA HCG (test See_Comment [Automated m essage] code = The system [facility] 5421413241) generated this result transmit blayne reference range : Non- fe male and male patien ts: <5 mIU/mL. The reference range was not used to interpret this result as normal/abnormal . TRUNG (test code Gestational Age ? ? = TRUNG) ?Range (mIU/mL) 1-10 ?Weeks ?03-11228336-58 Weeks ?21109-68125992-31 Weeks ?2176-42973603-13 Weeks ?4322-234132 Biotin has been reported to cause a negative bias, interpret results relative to patient's use of biotin. [facility] and Screen - ONCE [id number] 15:46:54 Test Item Value Reference Range Interpretation Comments ABO & RH (test code O Positive Performe d at [facility] = 20) Laboratory [facility] Blood [address] [place], [place] [address]Toll Free: [phone] A No. [id number] IAT (test code = Negative Performed a t [facility] 1185) Laboratory [facility] Blood [address] [place], [place] [address]Toll Free: [phone] A No. [id number] [facility] Screen - ONCE [id number] 15:46:54 Test Item Value Reference Range Interpretation Comments ABO & RH (test code O Positive Performe d at [facility] = 20) Laboratory [facility] Blood [address] [place], [place] [address]Toll Free: [phone] A No. [id number] IAT (test code = Negative Performed a t [facility] 1185) Laboratory [facility] Blood [address] [place], [place] [address]Toll Free: [phone] A No. [id number] [facility]. METABOLIC PANEL (32856)2022-08-11 15:22:15 Test Item Value Reference Range Interpretation Comments NA (test code = 138 mmol/L 135-145 7372815437) K (test code = 3.8 mmol/L 3.5-5 1333835690) CL (test code = 104 mmol/L 98-108 4537763042) CO2 TOTAL (test code = 23 mmol/L 23-31 6356079652) AGAP (test code = 2-16 7067732559) BUN (test code = 11 mg/dL 7-23 5293950662) GLUCOSE (test code = 109 mg/dL 70-110 1245185931) CREATININE (test code = 0.62 mg/dL 0.5-1.04 5139383513) TOTAL BILI (test code = 1.0 mg/dL 0.1-1.1 6878013197) CALCIUM (test code = 9.6 mg/dL 8.6-10.6 9458127194) T PROTEIN (test code = 6.7 g/dL 6.3-8.2 4420571564) ALBUMIN (test code = 4.4 g/dL 3.5-5 4234968681) ALK PHOS (test code = 37 U/L 34-122 9600359998) ALTv (test code = 80 U/L 5-35 H 1742-6) AST(SGOT) (test code = 98 U/L 13-40 H 0621561982) eGFR (test code = mL/min/1.73m2 8532737791) TRUNG (test code = TRUNG) Association of [...] tests). Lab Interpretation Abnormal (test code = 52181-6) [facility]2022-09-22 15:22:15 Test Item Value Reference Range Interpretation Comments MAGNESIUM (test code = 4555554773) 2.0 mg/dL 1.7-2.4 Lab Interpretation (test code = Normal 99266-8) [facility] MET[facility]OLIC PANEL (38505)2022-08-11 15:22:15 Test Item Value Reference Range Interpretation Comments NA (test code = 138 mmol/L 135-145 9211392017) K (test code = 3.8 mmol/L 3.5-5 7126822686) CL (test code = 104 mmol/L 98-108 3178654612) CO2 TOTAL (test code = 23 mmol/L 23-31 3201982173) AGAP (test code = 2-16 4846128101) BUN (test code = 11 mg/dL 7-23 3329372281) GLUCOSE (test code = 109 mg/dL 70-110 8539823477) CREATININE (test code = 0.62 mg/dL 0.5-1.04 5362389961) TOTAL BILI (test code = 1.0 mg/dL 0.1-1.6 9632376032) CALCIUM (test code = 9.6 mg/dL 8.6-10.6 6105292015) T PROTEIN (test code = 6.7 g/dL 6.3-8.2 8911356246) ALBUMIN (test code = 4.4 g/dL 3.5-5 9912270957) ALK PHOS (test code = 37 U/L 34-122 9973803391) ALTv (test code = 80 U/L 5-35 H 1742-6) AST(SGOT) (test code = 98 U/L 13-40 H 5608434830) eGFR (test code = mL/min/1.73m2 8558137881) TRUNG (test code = TRUNG) Association of [...] tests). Lab Interpretation Abnormal (test code = 23441-1) [facility]2022-09-22 15:22:15 Test Item Value Reference Range Interpretation Comments MAGNESIUM (test code = 3390252619) 2.0 mg/dL 1.7-2.4 Lab Interpretation (test code = Normal 38499-0) [facility]2022-09-22 15:21:55 Test Item Value Reference Range Interpretation Comments LIPASE (test code = 7232088971) 51 U/L 0-220 Lab Interpretation (test code = Normal 50216-7) [facility]2022-09-22 15:21:55 Test Item Value Reference Range Interpretation Comments LIPASE (test code = 8828972583) 51 U/L 0-220 Lab Interpretation (test code = Normal 42597-2) [facility] WITH [id number] 15:04:09 Test Item Value Reference Range Interpretation [...] RDW-SD (test code = 42.2 fL 39-49.9 99097-2) RDW-CV (test code = 13.5 % 12-15.5 788-0) PLT (test code = See_Comment H [Automated 777-3) message] The sy stem which generated this result transmitted reference range : 166 - 358 10*3/ ?L. The reference r brenna was not used to interpret this result as normal/abnormal . MPV (test code = 10.1 fL 9.5-12.9 92984-4) NRBC/100 WBC (test See_Comment [Automat ed code = 4255619138) message] The system which generated this result transmitted reference range : 0.0 - 10.0 /100 WBCs. The refer ence range was not u sed to interpret th is result as normal/abnormal . NRBC x10^3 (test code See_Comment [Auto mated = 6889762564) message] The s ystem which generated this result transmitted reference range : 10*3/?L. The reference range was not used to interpret this result as normal/abnormal . GRAN MAT (NEUT) % 77.4 % (test code = 770-8) IMM GRAN % (test code 0.40 % = 0812362043) LYMPH % (test code = 14.9 % 736-9) MONO % (test code = 6.8 % 5905-5) EOS % (test code = 0.3 % 713-8) BASO % (test code = 0.2 % 706-2) GRAN MAT x10^3(ANC) 8.79 10*3/uL 1.88-7.09 H (test code = 0123523911) IMM GRAN x10^3 (test 0.04 10*3/uL 0-0.06 code = 7799105488) LYMPH x10^3 (test code 1.69 10*3/uL 1.32-3.29 = 731-0) MONO x10^3 (test code 0.77 10*3/uL 0.33-0.92 = 742-7) EOS x10^3 (test code = 0.03 10*3/uL 0.03-0.39 711-2) BASO x10^3 (test code 0.01-0.07 = 704-7) Lab Interpretation Abnormal (test code = 81668-9) [facility] WITH [id number] 15:04:09 Test Item Value Reference Range Interpretation Comments WBC (test code = See_Comment H [Automated 5990-2) message] The sy stem which generated this result transmitted reference range : 4.30 - 11.10 10*3/?L. The reference range was not used to interpret this result as normal/abnormal . RBC (test code = See_Comment [Automated 849-8) message] The sy stem which generated this [...] RDW-SD (test code = 42.2 fL 39-49.9 56901-6) RDW-CV (test code = 13.5 % 12-15.5 788-0) PLT (test code = See_Comment H [Automated 777-3) message] The sy stem which generated this result transmitted reference range : 166 - 358 10*3/ ?L. The reference r brenna was not used to interpret this result as normal/abnormal . MPV (test code = 10.1 fL 9.5-12.9 03816-4) NRBC/100 WBC (test See_Comment [Automat ed code = 1029004958) message] The system which generated this result transmitted reference range : 0.0 - 10.0 /100 WBCs. The refer ence range was not u sed to interpret th is result as normal/abnormal . NRBC x10^3 (test code See_Comment [Auto mated = 4730421841) message] The s ystem which generated this result transmitted reference range : 10*3/?L. The reference range was not used to interpret this result as normal/abnormal . GRAN MAT (NEUT) % 77.4 % (test code = 770-8) IMM GRAN % (test code 0.40 % = 0562747822) LYMPH % (test code = 14.9 % 736-9) MONO % (test code = 6.8 % 5905-5) EOS % (test code = 0.3 % 713-8) BASO % (test code = 0.2 % 706-2) GRAN MAT x10^3(ANC) 8.79 10*3/uL 1.88-7.09 H (test code = 0173577559) IMM GRAN x10^3 (test 0.04 10*3/uL 0-0.06 code = 3394302587) LYMPH x10^3 (test code 1.69 10*3/uL 1.32-3.29 = 731-0) MONO x10^3 (test code 0.77 10*3/uL 0.33-0.92 = 742-7) EOS x10^3 (test code = 0.03 10*3/uL 0.03-0.39 711-2) BASO x10^3 (test code 0.01-0.07 = 704-7) Lab Interpretation Abnormal (test code = 28877-3) [facility]- DUP AB/PEL/SC [id number] 09:21:[address] [facility] 1995 Sex: F Name: AISLINN BURK [facility] : 1995 Age/S: 26 / F [address] Unit #: [id number]: [place] [address] Phys: Lorenzo Mcmahan Acct: [id number] Dis Date: Status: REG ER PHONE #: [phone] Exam Date: 08/10/2022 0908 FAX #: Reason: PREG, BLEEDING EXAMS: CPT: [id number] DUP AB/PEL/ SC COMP 80068 History: pain/bleeding Comparison: None at this time Location: 5 Transabdominal and endovaginal sonography of the pelvis [...] BURK : 1995 Age/S: 26 / F [address] Unit #: [id number] Loc: [place] [address] Phys: Lorenzo Mcmahan DO Acct: [id number] Dis Date: Status: REG ER PHONE #: [phone] Exam Date: 08/10/2022 0908 FAX #: Reason: PREG, BLEEDING EXAMS: CPT: [id number] DUP AB/PEL/SC COMP 03600 (Continued) CC: Leroy Cool MD; Lorenzo Mcmahan DOTechnologist: Hallie Garcia [facility] Date/Time: 08/10/2022 (920) [email or web address] PAGE 2 Signed Report Name:AISLINN BURK [place] : 1995 Age/S: 26 / F [address] Unit #: [id number] Lo c: [place] [address] Phys: Lorenzo Mcmahan DO Acct: [id number] Dis Date: Status: REG ER PHONE #: [phone] Exam Date: 08/10/2022 09 FAX #: Reason: PREG, BLEEDING EXAMS: CPT: [id number] DUP AB/PEL/SCCOMP 67661 (Continued) Orig Print D/T: S: 08/10/2022 (09) Probe: PAGE 3 Signed Report- US PREG 1ST TRIMTR 2022-08-10 09:21:[address] [facility] 1995 Sex: F Name: AISLINN BURK [facility] : 1995 Age/S: 26 / F [address] Unit #: [id number]: [place] [address] Phys: Lorenzo Mcmahan DO Acct: [id number] Dis Date: Status: REG ER PHONE #: [phone] Exam Date: 08/10/2022 0907 FAX #: Reason: pain/bleeding EXAMS: CPT: [id number] US PREG 1ST TRIMTR 57734 History: pain/bleeding Comparison: None at this time Location: 5 Transabdominal and endovaginal sonography of the pelvis [...] PAGE 1 Signed Report (CONTINUED) [facility] 1995 Age/S: 26 / F [address] Unit #: [id number] Loc: [place]ie [place] [address] Phys: Lorenzo Mcmahan DO Acct: [id number] Dis Date: Status: REG ER PHONE #: [phone] Exam Date: 08/10/2022 09 FAX #: Reason: pain/bleedingEXAMS: CPT: [id number] US PREG 1ST TRIMTR 92308 (Continued) CC: Lorenzo Mcmahan DO Technologist: Hallie Garcia Trnhib Date/Time: 08/10/2022 (920) Veronica PAGE 2 Signed Report Name: AISLINN BURKTGH [place] : 1995 Age/S: 26 / F [address] Unit #: [id number] Loc: Yolie Smith [address]Bdrn: Lorenzo Mcmahan DO Acct: [id number] Dis Date: Status: REG ER PHONE #: [phone] Exam Date: 08/10/2022906 FAX #: Reason: pain/bleeding EXAMS: CPT: [id number] US PREG 1ST TRIMTR 96208 (Continued) Orig Print D/T: S: 08/10/2022 (924) Probe: PAGE 3 Signed Report- US TRANSVAGINAL NON [id number] 09:21:[address] [facility] : 1995 Sex: F Name: AISLINN BURK [facility] : 1995 Age/S: 26 / F [address] Unit #: [id number] Loc: [place]ie [place] [address] Phys: Lorenzo Mcmahan DO Acct: [id number] Dis Date: Status: REG ER PHONE #: [phone] Exam Date: 08/10/2022 0908 FAX #: Reason: pain/bleeding EXAMS: CPT: [id number] [place] [address] History: pain/bleeding Comparison: None at this time Location: 5 Transabdominal and endovaginal sonography of the pelvis [...] approximately 8 weeks 1 day. These findings aresuspicious for intrauterine demise. There is a subchorionic hemorrhage. at 0921 Reported and signed by: Milton Talavera M.D. PAGE 1 Signed Report (CONTINUED) Name: AISLINN BURK [place] : 1995 Age/S: 26 / F [address] Unit #: [id number] Loc: Yolie Smith [address] Phys: Lorenzo Mcmahan DO Acct: [id number] Dis Date: Status: REG ER PHONE #: [phone] Exam Date: 08/10/2022 0908 FAX #: Reason: pain/b leeding EXAMS: CPT: [id number] [place] [address] (Continued) CC: Lorenzo Mcmahan DO Technologist: Hallie Garcia Trnscb Date/Time: 08/10/2022 (920) IfrahPMT PAGE 2 Signed Report Name: AISLINN BURK : 1995 Age/S: 26 / F [address] [address] Unit #: [id number] Loc: [place] [address] Phys: Lorenzo Mcmahan DO Acct: [id number] Dis Date: Status: REG ER PHONE #: [phone] Exam Date: 08/10/2022 09 FAX #: Reason: pain/bleeding EXAMS: CPT: [id number] [place] [address] (Continued) Orig Print D/T: S: 08/10/2022 (924) Probe: [id number] PAGE 3 Signed ReportHCG [id number] 08:39:00 Test Item Value Reference Range Interpretation Comments HCG SERUM (test 30492 mi-IU/ML 0-6 H 0 - 6 NOT > 6 code = HCG) SUGGESTIVE OF E KATIE RISE S TWO FOLD EVERY 2 DA YS; SUGGEST RECONFI RMING AFTER 2 DAYS. 150,000-200,[address] TRIMESTER 10,00 0 - 50,000 2ND & 3R D TRIMESTER UA RFLX MICR CULT IF [id number] 08:26:00 Test Item Value Reference Range Interpretation [...] Indication for culture: RiskForSepsis-no oth srcBASIC METABOLIC [id number] 08:10:00 Test Item Value Reference Range Interpretation [...] CA) 10.0 MG/DL 8.5-10.1 N HEPATIC FUNCTION [id number] 08:10:00 Test Item Value Reference Range Interpretation [...] 34 Unit/L 45-117 L code = ALKP) [id number] 08:10:00 Test Item Value Reference Range Interpretation Comments LIPASE (test code = LIP) 29 Unit/L 114-286 L CBC W/AUTO [id number] 07:59:00 Test Item Value Reference Range Interpretation [...] code NO DIFF/SCN CRITERIA = MDIFF) POCT [id number] 16:30:00 Test Item Value Reference Range Interpretation Comments POCT PREG (test code = 1605) Positive On board controls acceptable with C Yes Line (test code = 3574) POCT PREG LOT # (test code = 3575) POCT PREG TEST DATE (test code = 3576) [facility]ULT[facility], [id number] 09:51:52SPECIMEN NUMBER: [id number] CULTURE, URINE SPECIMEN NUMBER: [id number] SPECIMEN COMMENT: URINE SOURCE:URINE REPORT STATUS: FINAL FINAL REPORT: 07/30/2022 10-50,000 CFU/ML UROGENITAL YANNI PRESENT NO COMMON PATHOGENSCBC W/AUTO DIFF WITH [id number] 08:02:01 Test Item Value Reference Range Interpretation [...] RBCS 0.00 K/UL 0.00-0.11 (test code = 83998) HCG, [id number] 06:09:47 Test Item Value Reference Range Interpretation Comments HCG, QUANTITATIVE 18887 MIU/ML SEE BELOW E XPECTED (test code = 2506) VALUES FO R HCG GST.AGE UNITS RANGE GST. AGE UNITS RANGE3 WEEKS W[place] U/ML 6-71 10 WEEKS M IU/ML 46,509-186,9774 [...] . . . . . . MIU/ML 3-8IXEE-YXOKYZD REEMA FEMALES . . . . . . . . . . . . MIU/M L <=7 UNLESS OTHERWIS E INDICATED, ALL TESTING PERFORM ED ATCLINICAL PATH [facility] [address] [place] [id number] [place] [address] DIRECTOR: Latasha QUIROGAIA NUMBER [id number] CAP ACCREDITATION N O. [id number] POCT URINALYSIS W/O SPECIFIC [id number] 21:04:00 Test Item Value Reference Range Interpretation [...] code = 3257) N/A Negative - Negative [facility]IS2021-[facility]-12 16:50:35 Test Item Value Reference Range Interpretation Comments APPEARANCE (test code = Hazy Clear A 7337103291) COLOR (test code = Yellow Yellow 1744836774) PH (test code = 4.8-8.0 2544873839) SP GRAVITY (test code = 1.003-1.030 5450772632) GLU U QUAL (test code = Normal Normal 2917507868) BLOOD (test code = Negative Negative 6235172743) KETONES (test code = 20 mg/dL Negative A 7059851030) PROTEIN (test code = Negative Negative 2887-8) UROBILIN (test code = 2.0 mg/dL Normal A 0720433798) BILIRUBIN (test code = Negative Negative 3709895975) NITRITE (test code = Negative Negative 0844752148) LEUK KASHMIR (test code = 25/uL Negative A 4363595687) RBC/HPF (test code = See_Comment [Autom ated message] 6398507281) The system [facility] generated this result transmit blayne reference range : 0 - 3 HPF. The refe rence range was not u sed to interpret th is result as normal/abnormal . WBC/HPF (test code = See_Comment H [Autom ated message] 9842874139) The system [facility] generated this result transmit blayne reference range : 0 - 5 HPF. The refe rence range was not u sed to interpret th is result as normal/abnormal . BACTERIA (test code = Moderate Negative A 8830406775) MUCOUS (test code = Marked Negative LPF A 5582207393) SQ EPITH (test code = HPF 1079773932) Lab Interpretation (test Abnormal code = 69050-5) [facility] [id number] 16:14:00 Test Item Value Reference Range Interpretation Comments POCT PREG (test code = 1605) negative On board controls acceptable with present C Line (test code = 3574) POCT PREG LOT # (test code = 3575) [id number] POCT PREG TEST DATE (test 2022-09-19 code = 3576) Lab Interpretation (test code = Normal 22029-0) [facility]. METABOLIC PANEL (22772)2021-01-29 15:11:52 Test Item Value Reference Range Interpretation Comments NA (test code = 143 mmol/L 135-145 4775106059) K (test code = 3.2 mmol/L 3.5-5.0 L 7902103475) CL (test code = 102 mmol/L 98-108 8343061891) CO2 TOTAL (test code = 30 mmol/L 23-31 4189514790) AGAP (test code = 2-16 5360109750) BUN (test code = 15 mg/dL 7-23 1842482176) GLUCOSE (test code = 106 mg/dL 70-110 8887102927) CREATININE (test code = 0.81 mg/dL 0.50-1.04 4501766721) TOTAL BILI (test code = 0.9 mg/dL 0.1-1.5 2696547731) CALCIUM (test code = 9.6 mg/dL 8.6-10.6 4987402803) T PROTEIN (test code = 7.4 g/dL 6.3-8.2 0014313586) ALBUMIN (test code = 4.7 g/dL 3.5-5.0 2088848895) ALK PHOS (test code = 37 U/L 34-122 8367854884) ALTv (test code = 39 U/L 5-35 H 1742-6) AST(SGOT) (test code = 75 U/L 13-40 H 6139026821) eGFR Calculation mL/min/1.73m2 (Non-) (test code = 9275828290) eGFR Calculation mL/min/1.73m2 () (test code = 9040525167) TRUNG (test code = TRUNG) Association of [...] tests). Lab Interpretation Abnormal (test code = 73323-9) [facility] WITH [id number] 14:36:28 Test Item Value Reference Range Interpretation Comments WBC (test code = See_Comment [Automated message] 6690-2) The system [facility] generated this result transmitted ref erence range: 4.30 - 1 1.10 10*3/?L. The re ference range was not u sed to interpret this result as normal/abnor mal. RBC (test code = See_Comment [Automated message] 789-8) The system Moving [facility] generated this result transmitted ref erence range: [...] RDW-SD (test code 39.2 fL 39.0-49.9 = 48321-2) RDW-CV (test code 12.9 % 12.0-15.5 = 788-0) PLT (test code = See_Comment [Automated message] 777-3) The system [facility] generated this result transmitted ref erence range: 166 - 35 8 10*3/?L. The re ference range was not u sed to interpret this result as normal/abnor mal. MPV (test code = 10.5 fL 9.5-12.9 00413-7) NRBC/100 WBC (test See_Comment [Automat ed message] code = 3430559619) The syste [employer] which generated this result transmitted ref erence range: 0.0 - 10 .0 /100 WBCs. The refer ence range was not u sed to interpret this result as normal/abnor mal. NRBC x10^3 (test <0.01 See_Comment [Automated message] code = 1714089306) The syste m which generated this result transmitted ref erence range: 10*3/?L. The reference range was not used to interpr et this result as normal/abnormal . GRAN MAT (NEUT) % 71.8 % (test code = 770-8) IMM GRAN % (test 0.40 % code = 0034223085) LYMPH % (test code 18.5 % = 736-9) MONO % (test code 7.8 % = 5905-5) EOS % (test code = 1.2 % 713-8) BASO % (test code 0.3 % = 706-2) GRAN MAT 6.81 10*3/uL 1.88-7.09 x10^3(ANC) (test code = 6759563903) IMM GRAN x10^3 0.04 10*3/uL 0.00-0.06 (test code = 0632756634) LYMPH x10^3 (test 1.76 10*3/uL 1.32-3.29 code = 731-0) MONO x10^3 (test 0.74 10*3/uL 0.33-0.92 code = 742-7) EOS x10^3 (test 0.11 10*3/uL 0.03-0.39 code = 711-2) BASO x10^3 (test 0.03 10*3/uL 0.01-0.07 code = 704-7) [facility] (HIGH RISK) 2021-01-26 00:00:00 Test Item Value Reference Range Interpretation Comments SARS-CoV-2 INTERPRETATION NEGATIVE (test code = 12203) SOURCE (test code = 61990) NASOPHARYNGEAL SARS-CoV-2 (COVID-19) by RT-PCR (HIGH RISK)2021-01-26 00:00:00 Test Item Value Reference Range Interpretation Comments SARS-CoV-2 INTERPRETATION NEGATIVE (test code = 91531) SOURCE (test code = 03316) NASOPHARYNGEAL Notes Date/Time Note Provider Source 2022-08-10 07:26:00-00:00 [facility] ([facility]) EMERGENCY PROVIDER REPORT REPORT#:[id number] REPORT STATUS: Signed DATE:08/10/22 TIME:725 PATIENT: AISLINN BURK UNIT #: [id number] ROOM/BED: : 97 AGE: 26 SEX: F PCP PHYS: Yelitza Cool MD SERVICE AUTHOR: Lorenzo Mcmahan DO * ALL edits or amendments must be made on the [employer]/computer document * HPI-Abd Pain F Under 40 [...] for the past 2 weeks. States her [employer]PERVIS[employer] is at [facility]. Risk-Abd Pain F Under 40 )( [...] NL, Warm, Dry, Turgor NL Genitourinary General Dance Historian present Female Genitourinary Atraumatic, External genit chet [...] (Auto) (20.5 - 51.1 %) 3.9 L [place] % (Auto) (1.7 - 9.3 %) 1.0 L Eos % (Auto) (0.0 - 6.0 %) 0.0 Baso % (Auto) (0.0 - 2.0 %) 0.1 Neut # (Auto) (1.8 - 7.6 K/mm3) 15.5 H Lymph # (Auto) (0.6 - 3.2 K/mm3) 0.6 [place] # (Auto) (0.3 - 1.1 K/mm3) 0.2 [...] Maternal Serum HCG (0 - 6 mi-IU/ML) 77746 H Urines Urine Color (YEL/STRAW discript) STRAW Urine Appearance (CLEAR discript) TURBID H Urine pH (5.0 - 7.0 pH UNITS) 6.0 Ur Specific [place] (1.005 - 1.030 SG) >=1.030 H Urine [...] ULTRASOUND - US TRANSVAGINAL NON OB 08/10 0800 Report Impression - Status: SIGNED Entered: 08/10/2022 8010 IMPRESSION: A single intrauterine is identified. H owever, no heartbeat can be identified. According to ultras ound size criteria, the estimated gestational age would be approxima tely 8 weeks 1 day. These findings are suspicious for intrauterine f etal demise. There is a subchorionic hemorrhage. Impression By: Kelley Li ULTRASOUND - US PREG 1ST TRIMTR 08/10 0800 Report Impression - Status: SIGNED Entered: 08/10/2022924 [...] large subchorionic hemorrhage. Patient has follow-up with PARKING SUPERVISOR. Time of Re-Eval 1005 )( Re-Eval Status [...] Result Date Time Pulse Ox 100 08/10 0720 B/P 122/73 08/10 0720 B/P Mean 89 08/10 0720 O2 Delivery Room air 08/10 07 Temp 97.6 08/10 0720 Pulse 55 08/10 0720 Resp 17 08/10 07 Last Documented: Result Date Time Pulse Ox 99 08/10 1145 B/P 108/62 08/10 1145 B/P Mean 77 08/10 1145 O2 Delivery Room air 08/10 114 Temp 98.0 08/10 1145 Pulse 95 08/10 [...] (ZOFRAN ODT) 4 MG PO Q6H PRN OH N NAUSEA/VOMITING #20 TABS Patient Instructions ED Anxiety Reaction, ED Mis carriage, Incomplete, Understanding Miscarriage: Emotions Additional Instructions Follow-up with your PARKING SUPERVISOR physician in 1 to 2 d ays Electronically Signed by Lorenzo Mcmahan DO on at 0949 RPT #: [id number] END OF REPORT"
--- NOTE | 2023-08-06 18:42 | RAD REPORT ---
EXAM DESCRIPTION: US - Extremity Nonvascular Limited - 08/06/2023 6:11 pm CLINICAL HISTORY: Right forearm swelling. Rule out foreign body COMPARISON: None. TECHNIQUE: Real-time sonographic evaluation of the right upper extremity along the distal forearm, i n the area of palpable abnormality. FINDINGS: No suspicious masses or abscess formation. Tubular structure measuring 4 millimeter in shruti meter underlying the area of palpable abnormality in the subcutaneous soft tissue, measuring 1.7 cm i n length. This corresponds to site of previous IV access. No compressibility or flow is appreciated w ithin. IMPRESSION: Tubular noncompressible structure in the subcutaneous soft tissue, underlying the site o f previous IV access, most compatible with superficial thrombophlebitis.
--- NOTE | 2023-08-06 18:52 | ER ---
Nurse's Notes [facility] Name: Cely Clancy Age: 27 yrs Sex: Female : 1995 Arrival Date: 08/06/2023 Time: 17:08 Bed 12 Private MD: Diagnosis: Phlebitis and thrombophlebitis of unspecified site-right forearm Presentation: 08/06 17:30 Chief complaint: Possible foreign body in right forearm x 1 month. Pt concerned it is hb part of IV catheter from previous hospitalization. Coronavirus screen: At this time, the client does not indicate any symptoms associated with coronavirus-19. Ebola Screen: No symptoms or risks identified at this time. Initial Sepsis Screen: Does the patient meet any 2 criteria? No. Patient's initial sepsis screen is negative. Does the patient have a suspected source of infection? No. Patient's initial sepsis screen is negative. Risk Assessment: Do you want to hurt yourself or someone else? Patient reports no desire to harm self or others. Onset of symptoms is unknown. 17:30 Method Of Arrival: Ambulatory hb 17:30 Acuity: TOMÁS 4 hb Triage Assessment: 17:45 General: Appears in no apparent distress. Behavior is calm, cooperative. Pain: Pain hb currently is 5 out of 10 on a pain scale. Neuro: Level of Consciousness is awake, alert, obeys commands, Oriented to person, place, time, situation. Cardiovascular: Patient's skin is warm and dry. Respiratory: Respiratory effort is even, unlabored, Respiratory pattern is regular, symmetrical. Historical: - Allergies: 17:44 No Known Allergies; hb - Home Meds: 18:22 Adderall Oral for Attention-Deficit Hyperactivity Disorder [Active]; Propranolol Oral hb [Active]; venlafaxine oral [Active]; - PMHx: 17:44 Anxiety; depressive disorder; PCOS; Post depression; hb - PSHx: 17:44 section; hb - Immunization history:: Adult Immunizations up to date. - Social history:: Smoking status: Patient denies any tobacco usage or history of. Screenin:45 [facility] ED Fall Risk Assessment (Adult) Score/Fall Risk Level 0 - 2 = Low Risk hb Oriented to surroundings, Maintained a safe environment. Abuse screen: Denies threats or abuse. Denies injuries from another. Nutritional screening: No deficits noted. Tuberculosis screening: No symptoms or risk factors identified. Assessment: 17:45 General: see triage. hb 18:27 Reassessment: Patient appears in no apparent distress at this time. Patient and/or hb family updated on plan of care and expected duration. Pain level reassessed. Patient is alert, oriented x 3, equal unlabored respirations, skin warm/dry/pink. Vital Signs: 17:30 BP 120 / 83; Pulse 99; Resp 16; Temp 98.1; Pulse Ox 100% on R/A; Weight 54.43 kg; hb Height 5 ft. 5 in. ; Pain 5/10; 17:30 Body Mass Index 19.97 (54.43 kg, 165.1 cm) hb 17:30 Pain Scale: Adult hb ED Course: 17:12 Patient arrived in ED. mg5 17:13 Melanie Valdes FNP-C is PHCP. kb 17:13 Anmol Huff is Attending Physician. kb 17:44 Triage completed. hb 17:44 Arm band placed on. hb 18:13 US Extrmty Nonvasular Limited In Process Unspecified. EDMS 18:23 Patient has correct armband on for positive identification. Provided Education on: . hb Administered Medications: No medications were administered Medication: 17:45 VIS not applicable for this client. hb Outcome: 18:52 Discharge ordered by . kb 19:04 Patient left the ED. hb Signatures: Dispatcher [employer] EDMS Melanie Valdes FNP-C FNP-Ckb Baxter, Heather, RN RN Gin Ware mg5
--- NOTE | 2023-08-06 18:52 | EDPHYS ---
Physician Documentation [facility] Name: Cely Clancy Age: 27 yrs Sex: Female : 1995 Arrival Date: 08/06/2023 Time: 17:08 Bed 12 Private MD: ED Physician Anmol Huff HPI: 08/06 17:51 This 27 yrs old Female presents to ER via Ambulatory with complaints of IV Still In Arm.kb 17:51 The patient or guardian reports the patient has a suspected foreign body, of the right kb fa. The reported likely foreign body is IV catheter. Onset: The symptoms/episode began/occurred 1 month(s) ago. Current symptoms: foreign body sensation. Treatment Prior to Arrival: none. The patient has not experienced similar symptoms in the past. The patient has not recently seen a physician. Pt reports she was admitted for pneumonia on 07/01/23. States she noticed the IV catheter still in her arm recently. . Historical: - Allergies: 17:44 No Known Allergies; hb - Home Meds: 18:22 Adderall Oral for Attention-Deficit Hyperactivity Disorder [Active]; Propranolol Oral hb [Active]; venlafaxine oral [Active]; - PMHx: 17:44 Anxiety; depressive disorder; PCOS; Post depression; hb - PSHx: 17:44 section; hb - Immunization history:: Adult Immunizations up to date. - Social history:: Smoking status: Patient denies any tobacco usage or history of. ROS: 17:47 Constitutional: Negative for fever, chills, and weight loss. kb 17:47 MS/extremity: Positive for of the right forearm, FB sensation. 17:47 All other systems are negative. Exam: 17:47 Constitutional: This is a well developed, well nourished patient who is awake, alert, kb and in no acute distress. Head/Face: Normocephalic, atraumatic. ENT: Moist Mucous membranes Cardiovascular: Regular rate Respiratory: Respirations even and unlabored. No increased work of breathing. Talking in full sentences MS/ Extremity: Pulses equal, no cyanosis. Neurovascular intact. Full, normal range of motion. Neuro: Awake and alert, GCS 15, oriented to person, place, time, and situation. Moves all extremities. Normal gait. 17:47 Skin: FB vs phlebitis palpated to right FA. Vital Signs: 17:30 BP 120 / 83; Pulse 99; Resp 16; Temp 98.1; Pulse Ox 100% on R/A; Weight 54.43 kg; hb Height 5 ft. 5 in. ; Pain 5/10; 17:30 Body Mass Index 19.97 (54.43 kg, 165.1 cm) hb 17:30 Pain Scale: Adult hb MDM: 17:13 Patient medically screened. kb 17:49 Differential diagnosis: phlebitis, FB, abscess. Data reviewed: vital signs, nurses kb notes. 18:51 Discussion of test interpretation with radiology: I had a discussion with radiology kb regarding a test interpretation. US discussed with Dr Burrell. He confirms that there is no foreign body on US. Counseling: I had a detailed discussion with the patient and/or guardian regarding the historical points, exam findings, and any diagnostic results supporting the discharge/admit diagnosis, radiology results, the need for outpatient follow up, a family practitioner, to return to the emergency department if symptoms worsen or persist or if there are any questions or concerns that arise at home. 08/06 17:22 Order name: US Extrmty Nonvasular Limited; Complete Time: 18:43 kb Administered Medications: No medications were administered Disposition: 08/07 15:43 Co-signature as Attending Physician, Anmol Huff I agree with the assessment ci and plan of care. I reviewed the patient's care provided by the Advanced Practice Provider and agree with the diagnosis and treatment plan. Disposition Summary: 08/06/23 18:52 Discharge Ordered Location: Home kb Condition: Stable kb Diagnosis - Phlebitis and thrombophlebitis of unspecified site - right forearm kb Followup: kb - With: Emergency Department - When: As needed - Reason: Worsening of condition Followup: kb - With: Private Physician - When: 2 - 3 days - Reason: Recheck today's complaints, Continuance of care, Re-evaluation by your physician Discharge Instructions: - Discharge Summary Sheet kb - Phlebitis, [id number] kb Forms: - Medication Reconciliation Form kb - Thank You Letter kb - Antibiotic Education kb - Prescription Opioid Use kb - Patient Portal Instructions kb - Leadership Thank You Letter kb Signatures: Dispatcher [employer] Melanie Mcneal FNP-C FNP-Wne Simpson RN RN hb Iheonunekwu, Anmol ci
[2023-08-06 20:07] VITALS: BP 120/83; TEMP 98.1; O2SAT 100
== END 2023-08-06 19:04 | disposition home or self-care (01) ==
LOC: ER 17:08
DX: I80.8 Phlebitis and thrombophlebitis of other sites (principal)
CPT/HCPCS: 76882; 99281

== ENCOUNTER 2023-09-09 12:00 | Emergency (ER) | payer BC, OTHER ==
--- OUTSIDE RECORDS SUMMARY | 2023-09-09 12:05 | XMS REPORT | Continuity of Care Document ---
:1995 Author Organization [facility] t Address [address] [place] [address] Care Team Providers Name Role Phone Linh Davis Primary Care Physician [phone] ARLYN GARBER Attending Clinician Unavailable ARLYN GARBER Attending Clinician Unavailable Arlen Madden RN Attending Clinician Unavailable Pob, [facility] Attending Clinician Unavailable LISSET CALHOUN Attending Clinician Unavailable Doctor Unassigned, [place] Attending Clinician Unavailable Mitchell Acevedo RN Attending [...] Number Effective Date Expiration Date S [facility] [id number] 2018 00:00:00 Problems Condition Condition Condition Status Onset Resolution Last Treating Co mments Source Name Details Category Date Date Treatment Clinician Date Missed Missed Disease Active Univers 9-22 ity of 00:00: [facility] Abdominal Abdominal Disease Active Uni vers pain pain 9-22 ity of affecting affecting 00:00: [address] [facility] Nausea and Nausea and Disease Active U nivers vomiting vomiting 9-22 ity of during during 00:00: [facility] Vaginal Vaginal Disease Active Univers bleeding bleeding 9-20 ity of affecting affecting 00:00: Medical Bran ch Anxiety Anxiety Disease Active Univers 9-20 ity of 00:00: [facility] Vaginal Vaginal Disease Active Univers bleeding bleeding 9-20 ity of in in 00:00: [place] 00 [facility] Iron Iron Disease Active Univers deficiency deficiency 2-01 it y of anemia anemia 00:00: [facility] Disease Active Unive rs delivery delivery 1-25 ity of delivered delivered 00:00: [facility] Disease Active Unive rs delivery delivery 1-25 ity of delivered delivered 00:00: s [facility] COVID-19 COVID-19 Disease Active Unive rs virus virus 1-25 ity of infection infection 00:00: s [facility] Disease Active 2021- Univers labor in labor in 1-25 ity of third third 00:00: [place] trimester trimester 00 [facility] with with Branch delivery delivery Encounter Encounter Disease Active 2020-11 Uni vers for tubal for tubal 2-10 ity of ligation ligation 00:00: [place] counseling counseling 00 [facility] High-risk High-risk Disease Active 2020-11 Uni vers 2-10 ity of in third in third 00:00: [place] trimester trimester 00 [facility] Branch Previous Previous Disease Active 2020-11 Unive rs 2-10 ity of section section 00:00: [place] [address] Medical Branch History of History of Disease Active 2020-11 U [place] depression depression 2-10 it y of 00:00: [place] [address] Medical Branch History of History of Disease Active 2020-11 U [place] anxiety anxiety 2-10 ity of 00:00: [place] [address] Medical Branch Obesity Obesity Disease Active 2020-11 Univers during during 2-09 it[place] of 00:[place]: [place] Obesity Obesity Disease Active 2020-11 Univers (BMI (BMI 2-09 ity of 30-39.9) 30-39.9) 00:00: [place] [address] Medical Branch History of History of Disease Active 2020-11 Overview : Univers 0-28 Formattin ity of section section 00:00: g of this [place] 00 note Medical might be Branch different from the original. Formattin g of this note might be different from the original. Desires trial of labor.Raul ared for trial of labor. epsPatien t declines trial of labor now.Prete rm labor. 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 9-10 ity of 00:00: [place] [address] Medical Branch MTHFR MTHFR Disease Active Univers mutation mutation 9-10 ity of 00:00: [place] [address] Medical Branch Generalize Generalize Disease Active 2015- U nivers d d 4-15 ity of abdominal abdominal 00:00: Mikaela orantes pain pain 00 [facility] Contracept Contracept Disease Active 2015- U [place] brennon brennon 3-03 ity of management management [place] [facility] Vaginal Vaginal Disease Active 2015- Univers bleeding bleeding 3-03 ity of 00:00: [place] [address] Medical Branch Allergies, Adverse Reactions, Alerts Allergy Allergy Status Severity Reaction(s) Onset Inactive Treating Comm ents Source Name Type Date Date Clinician No Known DA Active U [facility] Allergie 9- Ver[facility] s 00:00: d 00 [facility] [place] NO KNOWN Drug Active Univers ALLERGIE Class ity of S [facility] Social History Social Habit Start Date Stop Date Quantity Comments Source ASSERTION 2021-04-23 [facility] 00:00:00 [facility] History of tobacco Current smoker Un iversity of use [facility] Sexual orientation Univer sity [facility] Exposure to 2022-08-05 2022-08-15 Not sure [facility] SARS-CoV-2 (event) 00:00:00 10:54:00 [facility] Tobacco use and 2022-08-08 2022-08-08 Smokeless Universit y of exposure 00:00:00 00:00:00 tobacco non-user [facility] Alcohol intake 2022-08-08 2022-08-08 0 /d [facility] 00:00:00 00:00:00 [facility] History of Social 2022-08-08 2022-08-08 Univers ity of function 00:00:00 00:00:00 [facility] Sex Assigned At [birth year] Universit y of 00:00:00 00:00:00 [facility] Smoking Status Start Date Stop Date Source Ex-smoker 2022-08-08 00:00:00 2022-08-08 00:00:00 Universi ty [facility] Medications Ordered Filled Start Stop Current Ordering Indication Dosage Frequency Signature Comments Components Source Medication Medication Date Date Medication? Clinician (SIG) Name Name metroNIDAZO 2021-11- No [id number] 500mg Take 1 Univers LE 500 mg 0-17 10-25 tablet by ity of tablet 00:00: 04:59 mouth [place] 00 :00 every 12 Medical (twelve) Branch hours for 7 days. metroNIDAZO 2021-11- No [id number] 500mg Take 1 Univers LE 500 mg 0-17 10-25 tablet by ity of tablet 00:00: 04:59 mouth [place] 00 :00 every 12 Medical (twelve) Branch hours for 7 days. ALPRAZolam 2021-11 Yes .5mg Take 0.5 Uni vers 0.5 mg 0-10 mg by ity of tablet 00:00: mouth in [place] 00 the Medical morning Branch and 0.5 mg at noon and 0.5 mg in the evening. propranoloL 2021-11 Yes Univer s 20 mg 0-10 ity of tablet 00:00: [place] 00 Medical Branch desvenlafax 2021-11 Yes Univer s ine 0-10 ity of succinate 00:00: [place] 25 mg Tb24 Medical Branch ALPRAZolam 2021-11 Yes .5mg Take 0.5 Uni vers 0.5 mg 0-10 mg by ity of tablet 00:00: mouth in [place] 00 the Medical morning Branch and 0.5 mg at noon and 0.5 mg in the evening. propranoloL 2021-11 Yes Univer s 20 mg 0-10 ity of tablet 00:00: [place] 00 Medical Branch desvenlafax 2021-11 Yes Univer s ine 0-10 ity of succinate 00:00: [place] 25 mg Tb24 Medical Branch diazePAM 10 Yes Univer s mg tablet 9-28 ity of 00:00: [place] 00 [facility] buPROPion Yes Univers XL 150 mg 9-28 ity of 24 hr 00:00: [place] tablet 00 Medical Branch diazePAM 10 Yes Univer s mg tablet 9-28 ity of 00:00: [place] 00 [facility] buPROPion Yes Univers XL 150 mg 9-28 ity of 24 hr 00:00: [place] tablet 00 Medical Branch ketorolac 2021- No 30mg 30 mg, Unive rs (TORADOL) 08-12 Slow IV ity of injection 00:15: 23:29 Push, [place] 30 mg 00 :00 ONCE, 1 Medical dose, On Branch [facility] 08/11/22 at 1915, Routine ketorolac 2021- No 30mg 30 mg, Unive rs (TORADOL) 08-12 Slow IV ity of injection 00:15: 23:29 [place], [place] 30 mg 00 :00 ONCE, 1 Medical dose, On Branch [facility] 08/11/22 at 1915, Routine morpHINE (4 [...] Starting ity o f irrigation 22:28: on [facility] [place] solution 00 08/11/22 at Medic al 1728, Branch Until Discontinu ed, Routine, Intra-op water for 2021- No PRN, Univers irrigation 08-11 Starting ity of irrigation 22:28: 02:16 on [facility] [place] solution 00 :19 08/11/22 at Medic al 1728, Branch Until [place] 08/11/22 at 2116, Routine, Intra-op ondansetron 2021- [...] 2021- No IV [place], Uni vers (VERSED) 08-1107 ONCE INTRA ity of injection 22:03: 16:04 PROCEDURE, [place] 00 :00 Starting Medical on [place] Branch 08/11/22 at 1703, Until 08/26/22 at 1104, Routine, Intra-op lactated 2021- No Intravenou Un gloria ringers IV 08-11 s, ity of infusion 22:03: 23:00 CONTINUOUS [place] 00 :49 PRN, Medical Starting Branch on [place] 08/11/22 at 1703, Until [place] 08/11/22 at 1800, Routine, Intra-op haloperidol 2021- No 1mg 1 mg, Univ ers lactate 08-11 Intravenou ity o f (HALDOL) 21:00: 20:57 s, ONCE, 1 [place] injection 1 00 :00 dose, On Medi juany mg [place] Branch 08/11/22 at 1600, STAT haloperidol 2021- No 1mg 1 mg, Univ ers lactate 08-11 Intravenou ity o f (HALDOL) 21:00: 20:57 s, ONCE, 1 [place] injection 1 00 :00 dose, On Medi juany mg [place] Branch 08/11/22 at 1600, STAT ondansetron 2021- No 4mg 4 mg, Slow Univers (ZOFRAN 08-11 IV Push, ity of (PF)) 19:30: 18:32 ONCE, 1 [place] injection 4 00 :00 dose, On Medi juany mg [place] Branch 08/11/22 at 1430, BRIGID famotidine 2021- No 20mg 20 mg, Univ ers (PEPCID 08-11 Slow IV ity of (PF)) 19:30: 19:29 [place], [place] injection 00 :00 ONCE, 1 Medical 20 mg dose, On Branch [place] 08/11/22 at 1430, BRIGID ondansetron 2021- No 4mg 4 mg, Slow Univers (ZOFRAN 08-11 IV Push, ity of (PF)) 19:30: 18:32 ONCE, 1 [place] injection 4 00 :00 dose, On Medi juany mg [place] Branch 08/11/22 at 1430, BRIGID famotidine 2021- No 20mg 20 mg, Univ ers (PEPCID 08-11 Slow IV ity of (PF)) 19:30: 19:29 [place], [place] injection 00 :00 ONCE, 1 Medical 20 mg dose, On Branch [place] 08/11/22 at 1430, BRIGID Yes Take by Univer s vit 9-22 mouth. ity of calc,iron,f 19:16: [address] ( Branch VITAMIN ORAL) Yes Take by Univer s vit 9-22 mouth. ity of calc,iron,f 19:16: [address] ( Branch VITAMIN ORAL) Yes Take by [place] s vit 9-22 mouth. ity of calc,iron,f 19:16: [address] ( Branch VITAMIN ORAL) Yes Take by Univer s vit 9-22 mouth. ity of calc,iron,f 19:16: [address] ( Branch VITAMIN ORAL) Yes Take by Univer s vit 9-22 mouth. ity of calc,iron,f 19:16: [place] [address] Medical ( Branch VITAMIN ORAL) Yes Take by Univer s vit 9-22 mouth. ity of calc,iron,f 19:16: [address] ( Branch VITAMIN ORAL) Yes Take by Univer s vit 9-22 mouth. ity of calc,iron,f 19:16: [address] ( Branch VITAMIN ORAL) Yes Take by Univer s vit 9-22 mouth. ity of calc,iron,f 19:16: [place] [address] Medical ( Branch VITAMIN ORAL) Yes Take by [place] vit 9-22 mouth. ity of calc,iron,f 19:16: [place] [address] Medical ( Branch VITAMIN ORAL) Yes Take by Univer s vit 9-22 mouth. ity of calc,iron,f 19:16: [place] [address] Medical ( Branch VITAMIN ORAL) Yes Take by Univer s vit 9-22 mouth. ity of calc,iron,f 19:16: [address] ( Branch VITAMIN ORAL) Yes Take by Univer s vit 9-22 mouth. ity of calc,iron,f 19:16: [place] [address] Medical ( Branch VITAMIN ORAL) Yes Take by [place] vit 9-22 mouth. ity of calc,iron,f 19:16: [address] ( Branch VITAMIN ORAL) Yes Take by [place] vit 9-22 mouth. ity of calc,iron,f 19:16: [address] ( Branch VITAMIN ORAL) Yes Take by [place] vit 9-22 mouth. ity of calc,iron,f 19:16: [address] ( Branch VITAMIN ORAL) NaCl 0.9% 2021- No 1000mL at 999 Uni vers (NS) bolus 08-11 mL/hr, ity of infusion 17:15: 17:30 1,000 mL, [place] 1,000 mL 00 :00 IV Medical Piggyback, Branch ONCE, 1 dose, On [place] 08/11/22 at 1215, STAT NaCl 0.9% 2021- No 1000mL at 999 Uni vers (NS) bolus 08-11 mL/hr, ity of infusion 17:15: 17:30 1,000 mL, [place] 1,000 mL 00 :00 IV Medical Piggyback, Branch ONCE, 1 dose, On [place] 08/11/22 at 1215, STAT morpHINE (4 2021- No 4mg 4 mg, Slow Univers mg/mL) 08-11 IV Push, ity of injection 4 16:45: 16:05 ONCE, 1 [place] mg 00 :00 dose, On Medical [place] Branch 08/11/22 at 1145, STAT morpHINE (4 0 2021- No 4mg 4 mg, Slow Univers mg/mL) 08-11 IV Push, ity of injection 4 16:45: 16:05 ONCE, 1 [place] mg 00 :00 dose, On Medical [place] Branch 08/11/22 at 1145, STAT proMETHazin 2021- No 12.5mg 12.5 mg, Univers e 08-11 IV ity of (PHENERGAN) 16:00: 16:09 [facility] [place] 12.5 mg in 00 :00 ONCE, 1 Medica l NaCl 0.9% dose, On Branch (NS) 50 mL [place] IV 08/11/22 at piggyback 1100, BRIGID proMETHazin 2021- No 12.5mg 12.5 mg, Univers e 08-11 IV ity of (PHENERGAN) 16:00: 16:09 Piggyback, [place] 12.5 mg in 00 :00 ONCE, 1 Medica l NaCl 0.9% dose, On Branch (NS) 50 mL [place] IV 08/11/22 at piggyback 1100, BRIGID ondansetron 2021- No 4mg 4 mg, Slow Univers (ZOFRAN 08-11 IV Push, ity of (PF)) 15:15: 15:11 ONCE, 1 [place] injection 4 00 :00 dose, On Medi juany mg [place] Branch 08/11/22 at 1015, BRIGID ondansetron 0 2021- No 4mg 4 mg, Slow Univers (ZOFRAN 08-11 IV Push, ity of (PF)) 15:15: 15:11 ONCE, 1 [place] injection 4 00 :00 dose, On Medi juany mg [place] Branch 08/11/22 at 1015, BRIGID ibuprofen 2021-0 Yes [id number] 800mg Take 1 Univers 800 mg 08-11 tablet by ity of tablet 00:00: mouth [place] 00 every 6 Medical (six) Branch hours as needed for Alternate with [place] for pain scale 4-6. amoxicillin 2021-0 Yes [id number] 500mg Take 1 Univers -pot 9-22 tablet by ity of clavulanate 00:00: mouth in [place] 500 mg 00 the Medical (AUGMENTIN) morning Branc h 500-125 mg and 1 tablet tablet at noon and 1 tablet in the evening. methylergon 2022-0 Yes [id number] 200ug Take 1 Univers ovine 0.2 9-22 tablet by ity o f mg tablet 00:00: mouth [place] 00 every 6 Medical (six) Branch hours. ibuprofen 2021-0 Yes [id number] 800mg Take 1 Univers 800 mg 9-22 tablet by ity of tablet 00:00: mouth [place] 00 every 6 Medical (six) Branch hours as needed for Alternate with [place] for pain scale 4-6. amoxicillin 2021-0 Yes [id number] 500mg Take 1 Univers -pot 9-22 tablet by ity of clavulanate 00:00: mouth in [place] 500 mg 00 the Medical (AUGMENTIN) morning Branc h 500-125 mg and 1 tablet tablet at noon and 1 tablet in the evening. methylergon 2021-0 Yes [id number] 200ug Take 1 Univers ovine 0.2 9-22 tablet by ity o f mg tablet 00:00: mouth [place] 00 every 6 Medical (six) Branch hours. ibuprofen 2021-0 Yes [id number] 800mg Take 1 Univers 800 mg 9-22 tablet by ity of tablet 00:00: mouth [place] 00 every 6 Medical (six) Branch hours as needed for Alternate with [place] for pain scale 4-6. amoxicillin 2021-0 Yes [id number] 500mg Take 1 Univers -pot 9-22 tablet by ity of clavulanate 00:00: mouth in [place] 500 mg 00 the Medical (AUGMENTIN) morning Branc h 500-125 mg and 1 tablet tablet at noon and 1 tablet in the evening. methylergon 2022-0 Yes [id number] 200ug Take 1 Univers ovine 0.2 9-22 tablet by ity o f mg tablet 00:00: mouth [place] 00 every 6 Medical (six) Branch hours. ibuprofen 2-0 Yes [id number] 800mg Take 1 Univers 800 mg 9-22 tablet by ity of tablet 00:00: mouth [place] 00 every 6 Medical (six) Branch hours as needed for Alternate with [place] for pain scale 4-6. amoxicillin 2022-0 Yes [id number] 500mg Take 1 Univers -pot 9-22 tablet by ity of clavulanate 00:00: mouth in [place] 500 mg 00 the Medical (AUGMENTIN) morning Branc h 500-125 mg and 1 tablet tablet at noon and 1 tablet in the evening. methylergon 2022-0 Yes [id number] 200ug Take 1 Univers ovine 0.2 9-22 tablet by ity o f mg tablet 00:00: mouth [place] 00 every 6 Medical (six) Branch hours. ibuprofen 2021-0 Yes [id number] 800mg Take 1 Univers 800 mg 9-22 tablet by ity of tablet 00:00: mouth [place] 00 every 6 Medical (six) Branch hours as needed for Alternate with [place] for pain scale 4-6. amoxicillin 2021-0 Yes [id number] 500mg Take 1 Univers -pot 9-22 tablet by ity of clavulanate 00:00: mouth in [place] 500 mg 00 the Medical (AUGMENTIN) morning Branc h 500-125 mg and 1 tablet tablet at noon and 1 tablet in the evening. methylergon 2021-0 Yes [id number] 200ug Take 1 Univers ovine 0.2 9-22 tablet by ity o f mg tablet 00:00: mouth [place] 00 every 6 Medical (six) Branch hours. ibuprofen 2-0 Yes [id number] 800mg Take 1 Univers 800 mg 9-22 tablet by ity of tablet 00:00: mouth [place] 00 every 6 Medical (six) Branch hours as needed for Alternate with [place] for pain scale 4-6. amoxicillin 2021-0 Yes [id number] 500mg Take 1 Univers -pot 9-22 tablet by ity of clavulanate 00:00: mouth in [place] 500 mg 00 the Medical (AUGMENTIN) morning Branc h 500-125 mg and 1 tablet tablet at noon and 1 tablet in the evening. methylergon 2022-0 Yes [id number] 200ug Take 1 Univers ovine 0.2 9-22 tablet by ity o f mg tablet 00:00: mouth [place] 00 every 6 Medical (six) Branch hours. ibuprofen 2022-0 Yes [id number] 800mg Take 1 Univers 800 mg 9-22 tablet by ity of tablet 00:00: mouth [place] 00 every 6 Medical (six) Branch hours as needed for Alternate with [place] for pain scale 4-6. amoxicillin 2022-0 Yes [id number] 500mg Take 1 Univers -pot 9-22 tablet by ity of clavulanate 00:00: mouth in [place] 500 mg 00 the Medical (AUGMENTIN) morning Branc h 500-125 mg and 1 tablet tablet at noon and 1 tablet in the evening. methylergon 2022-0 Yes [id number] 200ug Take 1 Univers ovine 0.2 9-22 tablet by ity o f mg tablet 00:00: mouth [place] 00 every 6 Medical (six) Branch hours. ibuprofen 2022-0 Yes [id number] 800mg Take 1 Univers 800 mg 9-22 tablet by ity of tablet 00:00: mouth [place] 00 every 6 Medical (six) Branch hours as needed for Alternate with [place] for pain scale 4-6. amoxicillin 2-0 Yes [id number] 500mg Take 1 Univers -pot 9-22 tablet by ity of clavulanate 00:00: mouth in [place] 500 mg 00 the Medical (AUGMENTIN) morning Branc h 500-125 mg and 1 tablet tablet at noon and 1 tablet in the evening. methylergon 2022-0 Yes [id number] 200ug Take 1 Univers ovine 0.2 9-22 tablet by ity o f mg tablet 00:00: mouth [place] 00 every 6 Medical (six) Branch hours. ibuprofen 2-0 Yes [id number] 800mg Take 1 Univers 800 mg 9-22 tablet by ity of tablet 00:00: mouth [place] 00 every 6 Medical (six) Branch hours as needed for Alternate with [place] for pain scale 4-6. amoxicillin 2-0 Yes [id number] 500mg Take 1 Univers -pot 9-22 tablet by ity of clavulanate 00:00: mouth in [place] 500 mg 00 the Medical (AUGMENTIN) morning Branc h 500-125 mg and 1 tablet tablet at noon and 1 tablet in the evening. methylergon 2022-0 Yes [id number] 200ug Take 1 Univers ovine 0.2 9-22 tablet by ity o f mg tablet 00:00: mouth [place] 00 every 6 Medical (six) Branch hours. ibuprofen 2022-0 Yes [id number] 800mg Take 1 Univers 800 mg 9-22 tablet by ity of tablet 00:00: mouth [place] 00 every 6 Medical (six) Branch hours as needed for Alternate with [place] for pain scale 4-6. amoxicillin 2021-0 Yes [id number] 500mg Take 1 Univers -pot 9-22 tablet by ity of clavulanate 00:00: mouth in [place] 500 mg 00 the Medical (AUGMENTIN) morning Branc h 500-125 mg and 1 tablet tablet at noon and 1 tablet in the evening. methylergon 2021-0 Yes [id number] 200ug Take 1 Univers ovine 0.2 9-22 tablet by ity o f mg tablet 00:00: mouth [place] 00 every 6 Medical (six) Branch hours. ibuprofen 2021-0 Yes [id number] 800mg Take 1 Univers 800 mg 9-22 tablet by ity of tablet 00:00: mouth [place] 00 every 6 Medical (six) Branch hours as needed for Alternate with [place] for pain scale 4-6. methylergon 2021-0 Yes [id number] 200ug Take 1 Univers ovine 0.2 9-22 tablet by ity o f mg tablet 00:00: mouth [place] 00 every 6 Medical (six) Branch hours. ibuprofen 2021-0 Yes [id number] 800mg Take 1 Univers 800 mg 9-22 tablet by ity of tablet 00:00: mouth [place] 00 every 6 Medical (six) Branch hours as needed for Alternate with [place] for pain scale 4-6. methylergon 2021-0 Yes [id number] 200ug Take 1 Univers ovine 0.2 9-22 tablet by ity o f mg tablet 00:00: mouth [place] 00 every 6 Medical (six) Branch hours. amoxicillin 2021-0 2021- No [id number] 500mg Take 1 Univers -pot 9-22 10-17 tablet by ity of clavulanate 00:00: 00:00 mouth in [place] 500 mg 00 :00 the Medical (AUGMENTIN) morning Branc h 500-125 mg and 1 tablet tablet at noon and 1 tablet in the evening. amoxicillin 2021-0 2021- No [id number] 500mg Take 1 Univers -pot 9-22 10-17 tablet by ity of clavulanate 00:00: 00:00 mouth in [place] 500 mg 00 :00 the Medical (AUGMENTIN) morning Branc h 500-125 mg and 1 tablet tablet at noon and 1 tablet in the evening. HYDROcodone No 46 1{tbl} Take 1 U nivers -acetaminop 9-22 09-30 tablet by it y of hen 5-325 00:00: 04:59 mouth [place] mg tablet 00 :00 every 6 Medical (six) Branch hours as needed for Pain (scale 7-10) for up to 7 days. Indication s: acute pain HYDROcodone No 4647 1{tbl} Take 1 U nivers -acetaminop 9-22 09-30 tablet by it y of hen 5-325 00:00: 04:59 mouth [place] mg tablet 00 :00 every 6 Medical (six) Branch hours as needed for Pain (scale 7-10) for up to 7 days. Indication s: acute pain HYDROcodone 4647 1{tbl} Take 1 U nivers -acetaminop 9-22 09-30 tablet by it y of hen 5-325 00:00: 04:59 mouth [place] mg tablet 00 :00 every 6 Medical (six) Branch hours as needed for Pain (scale 7-10) for up to 7 days. Indication s: acute pain HYDROcodone 4647 1{tbl} Take 1 U nivers -acetaminop 9-22 09-30 tablet by it y of hen 5-325 00:00: 04:59 mouth [place] mg tablet 00 :00 every 6 Medical (six) Branch hours as needed for Pain (scale 7-10) for up to 7 days. Indication s: acute pain HYDROcodone 4647 1{tbl} Take 1 U nivers -acetaminop 9-22 09-30 tablet by it y of hen 5-325 00:00: 04:59 mouth [place] mg tablet 00 :00 every 6 Medical (six) Branch hours as needed for Pain (scale 7-10) for up to 7 days. Indication s: acute pain HYDROcodone 4647 1{tbl} Take 1 U nivers -acetaminop [...] Indication s: acute pain ondansetron 2021-0 Yes [id number] 8mg Take 1 Univers 8 mg 9-21 tablet by ity of disintegrat 00:00: mouth [place] ing tablet 00 every 8 Medica l (eight) Branch hours as needed for Nausea and Vomiting (N/V). ondansetron 2021-0 Yes [id number] 8mg Take 1 Univers 8 mg 9-21 tablet by ity of disintegrat 00:00: mouth [place] ing tablet 00 every 8 Medica l (eight) Branch hours as needed for Nausea and Vomiting (N/V). ondansetron 2021-0 Yes [id number] 8mg Take 1 Univers 8 mg 9-21 tablet by ity of disintegrat 00:00: mouth [place] ing tablet 00 every 8 Medica l (eight) Branch hours as needed for Nausea and Vomiting (N/V). ondansetron 2021-0 Yes [id number] 8mg Take 1 Univers 8 mg 9-21 tablet by ity of disintegrat 00:00: mouth [place] ing tablet 00 every 8 Medica l (eight) Branch hours as needed for Nausea and Vomiting (N/V). ondansetron 2021-0 Yes [id number] 8mg Take 1 Univers 8 mg 9-21 tablet by ity of disintegrat 00:00: mouth [place] ing tablet 00 every 8 Medica l (eight) Branch hours as needed for Nausea and Vomiting (N/V). ondansetron 2021-0 Yes [id number] 8mg Take 1 Univers 8 mg 9-21 tablet by ity of disintegrat 00:00: mouth [place] ing tablet 00 every 8 Medica l (eight) Branch hours as needed for Nausea and Vomiting (N/V). ondansetron 2021-0 Yes [id number] 8mg Take 1 Univers 8 mg 9-21 tablet by ity of disintegrat 00:00: mouth [place] ing tablet 00 every 8 Medica l (eight) Branch hours as needed for Nausea and Vomiting (N/V). ondansetron 2021-0 Yes [id number] 8mg Take 1 Univers 8 mg 9-21 tablet by ity of disintegrat 00:00: mouth [place] ing tablet 00 every 8 Medica l (eight) Branch hours as needed for Nausea and Vomiting (N/V). ondansetron 2021-0 Yes [id number] 8mg Take 1 Univers 8 mg 9-21 tablet by ity of disintegrat 00:00: mouth [place] ing tablet 00 every 8 Medica l (eight) Branch hours as needed for Nausea and Vomiting (N/V). ondansetron 2021-0 Yes [id number] 8mg Take 1 Univers 8 mg 9-21 tablet by ity of disintegrat 00:00: mouth [place] ing tablet 00 every 8 Medica l (eight) Branch hours as needed for Nausea and Vomiting (N/V). ondansetron 2021-0 Yes [id number] 8mg Take 1 Univers 8 mg 9-21 tablet by ity of disintegrat 00:00: mouth [place] ing tablet 00 every 8 Medica l (eight) Branch hours as needed for Nausea and Vomiting (N/V). ondansetron 2021-0 Yes [id number] 8mg Take 1 Univers 8 mg 9-21 tablet by ity of disintegrat 00:00: mouth [place] ing tablet 00 every 8 Medica l (eight) Branch hours as needed for Nausea and Vomiting (N/V). ondansetron 2021-0 Yes [id number] 8mg Take 1 Univers 8 mg 9-21 tablet by ity of disintegrat 00:00: mouth [place] ing tablet 00 every 8 Medica l (eight) Branch hours as needed for Nausea and Vomiting (N/V). ondansetron 2021-0 Yes [id number] 8mg Take 1 Univers 8 mg 9-21 tablet by ity of disintegrat 00:00: mouth [place] ing tablet 00 every 8 Medica l (eight) Branch hours as needed for Nausea and Vomiting (N/V). LORazepam 2021-0 Yes TAKE 1 Univer s 0.5 mg 9-21 TABLET BY ity of tablet 00:00: MOUTH [place] 00 EVERY 8 Medical HOURS Branch NEEDED FOR ANXIETY ondansetron 2021-0 Yes [id number] 8mg Take 1 Univers 8 mg 9-21 tablet by ity of disintegrat 00:00: mouth [place] ing tablet 00 every 8 Medica l (eight) Branch hours as needed for Nausea and Vomiting (N/V). LORazepam Yes TAKE 1 Univer s 0.5 mg 9-21 TABLET BY ity of tablet 00:00: MOUTH [place] 00 EVERY 8 Medical HOURS Branch NEEDED FOR ANXIETY Yes Take by [employer] vit 9-19 mouth. ity of calc,iron,f 11:16: [place] [address] Medical ( Branch VITAMIN ORAL) Yes Take by [employer] vit 9-19 mouth. ity of calc,iron,f 11:16: [place] [address] Medical ( Branch VITAMIN ORAL) Yes Take by [employer] vit 9-19 mouth. ity of calc,iron,f 11:16: [place] [address] Medical ( Branch VITAMIN ORAL) Yes Take by [employer] vit 9-19 mouth. ity of calc,iron,f 11:16: [place] [address] Medical ( Branch VITAMIN ORAL) TRAMADOL-AC No ETAMINOPHN 07-28 37.5-325 00:00: 00 TAKE 1 No TABLET BY 08 MOUTH EVERY 00:00: 8 HOURS FOR 00 UP TO 31 DAYS NEEDED FOR PAIN dextroamphe Yes [facility]ph 8-18 ity of etamine 20 00:00: [place] mg tablet 00 Medical Branch dextroamphe Yes [facility] tamine-amph 8-18 ity of etamine 20 00:00: [place] mg tablet 00 Medical Branch dextroamphe Yes [facility] s tamine-amph 8-18 ity of etamine 20 00:00: [place] mg tablet 00 Medical Branch dextroamphe Yes [facility] tamine-amph 8-18 ity of etamine 20 00:00: [place] mg tablet 00 Medical Branch dextroamphe Yes [facility] tamine-amph 8-18 ity of etamine 20 00:00: [place] mg tablet 00 Medical Branch dextroamphe Yes [facility] tamine-amph 8-18 [...] tablet 00 Medical Branch dextroamphe 2021-[address] [facility] tamine-amph 8-18 ity of etamine 20 00:00: [place] mg tablet 00 Medical Branch dextroamphe 2021-[address] [facility] tamine-amph 8-18 ity of etamine 20 00:00: [place] mg tablet 00 Medical Branch dextroamphe 2021-[address] [facility] tamine-amph 8-18 ity of etamine 20 00:00: [place] mg tablet 00 Medical Branch dextroamphe 2021-[address] [facility] tamine-amph 8-18 ity of etamine 20 00:00: [place] mg tablet 00 Medical Branch dextroamphe 2021-0 Yes [facility] s tamine-amph 8-18 ity of etamine 20 00:00: [place] mg tablet 00 Medical Branch dextroamphe 2021-0 Yes Univer s tamine-amph 8-18 ity of etamine 20 00:00: [place] mg tablet 00 Medical Branch dextroamphe 2-0 Yes [facility] s tamine-amph 8-18 ity of etamine 20 00:00: [place] mg tablet 00 Medical Branch dextroamphe 2021-[address] [facility] tamine-[facility]ph 8-18 ity of etamine 20 00:00: [place] mg tablet 00 Medical Branch dextroamphe 2021-0 Yes [facility] s tamine-amph 8-18 ity of etamine 20 00:00: [place] mg tablet 00 Medical Branch dextroamphe 2021-0 Yes Univer s tamine-amph 8-18 ity of etamine 20 00:00: [place] mg tablet 00 Medical Branch zolpidem 10 2021-0 Yes TAKE 1/2 [place] mg tablet 7-18 TO 1 ity of 00:00: TABLET BY [place] 00 MOUTH Medical DAILY AT [facility] Yes TAKE 1/2 [place] mg tablet 7-18 TO 1 ity of 00:00: TABLET BY [address] DAILY AT [facility] Yes TAKE 1/2 [place] mg tablet 7-18 TO 1 ity of 00:00: TABLET BY [address] DAILY AT [facility] [place] [address] Yes TAKE 1/2 [place] mg tablet 7-18 TO 1 ity of 00:00: TABLET BY [address] DAILY AT [facility] 10 Yes TAKE 1/2 Un [place] mg tablet 7-18 TO 1 ity of 00:00: TABLET BY [address] DAILY AT [facility] 10 Yes TAKE 1/2 Un [place] mg tablet 7-18 TO 1 ity of 00:00: TABLET BY [address] DAILY AT [facility] [place] [address] Yes TAKE 1/2 [place] mg tablet 7-18 TO 1 ity of 00:00: TABLET BY [address] DAILY AT [facility] [place] [address] Yes TAKE 1/2 [place] mg tablet 7-18 TO 1 ity of 00:00: TABLET BY [address] DAILY AT [facility] [place] [address] Yes TAKE 1/2 [place] mg tablet 7-18 TO 1 ity of 00:00: TABLET BY [address] DAILY AT [facility] [place] [address] Yes TAKE 1/2 [place] mg tablet 7-18 TO 1 ity of 00:00: TABLET BY [address] DAILY AT [facility] 10 Yes TAKE 1/2 [place] mg tablet 7-18 TO 1 ity of 00:00: TABLET BY [place] [address] MOUTH [facility] DAILY AT [facility] 10 Yes TAKE 1/2 Un [place] mg tablet 7-18 TO 1 ity of 00:00: TABLET BY [place] [address] MOUTH [facility] DAILY AT [facility] 10 Yes TAKE 1/2 Un [place] mg tablet 7-18 TO 1 ity of 00:00: TABLET BY [place] [address] MOUTH Medical DAILY AT [facility] zolpide 10 Yes TAKE 1/2 [place] mg tablet 718 TO 1 ity of 00:00: TABLET BY [place] [address] MOUTH Medical DAILY AT [facility] zolpide 10 Yes TAKE 1/2 [place] mg tablet 18 TO 1 ity of 00:00: TABLET BY [place] [address] MOUTH Medical DAILY AT [facility] zolpide 10 Yes TAKE 1/2 [place] mg tablet 18 TO 1 ity of 00:00: TABLET BY [place] [address] MOUTH Medical DAILY AT [facility] zolpide 10 Yes TAKE 1/2 [place] mg tablet 18 TO 1 ity of 00:00: TABLET BY [place] [address] MOUTH Medical DAILY AT [facility] zolpide 10 Yes TAKE 1/2 [place] mg tablet 18 TO 1 ity of 00:00: TABLET BY [place] [address] MOUTH [facility] DAILY AT [facility] zolpide 10 Yes TAKE 1/2 [place] mg tablet 18 TO 1 ity of 00:00: TABLET BY [place] [address] MOUTH Medical DAILY AT [facility] desvenlafax Yes Kelley s ine 7-15 ity of succinate 00:00: [place] 50 mg 24 hr 00 Medical [facility]e [facility]15 ity of succinate 00:00: [place] 50 mg 24 hr 00 Medical tablet [facility] ine 7-15 ity of succinate 00:00: [place] 50 mg 24 hr 00 Medical tablet Comfort desvenlafax Yes Kelley s ine 7-15 ity of succinate 00:00: [place] 50 mg 24 hr 00 Medical tablet Comfort desvenlafax Yes Kelley s ine 7-15 ity of succinate 00:00: [place] 50 mg 24 hr 00 Medical tablet Comfort desvenlafax Yes Kelley s ine 7-15 ity of succinate 00:00: [place] 50 mg 24 hr 00 Medical tablet Comfort desvenlafax Yes Kelley s ine 7-15 ity of succinate 00:00: [place] 50 mg 24 hr 00 Medical tablet [facility] Kelley s ine 7-15 ity of succinate 00:00: [place] 50 mg 24 hr 00 Medical tablet Branch desvenlafax Yes [facility] ine 7-15 ity of succinate 00:00: [place] 50 mg 24 hr 00 Medical tablet Branch desvenlafax Yes Univmaria de jesus s ine 7-15 ity of succinate 00:00: [place] 50 mg 24 hr 00 Medical tablet Branch desvenlafax Yes Univmaria de jesus s ine 7-15 ity of succinate 00:00: [place] 50 mg 24 hr 00 Medical tablet Branch desvenlafax Yes Univmaria de jesus s ine 7-15 ity of succinate 00:00: [place] 50 mg 24 hr 00 Medical tablet Branch desvenlafax Yes Kelley s ine 7-15 ity of succinate 00:00: [place] 50 mg 24 hr 00 Medical tablet Branch desvenlafax Yes Kelley s ine 7-15 ity of succinate 00:00: [place] 50 mg 24 hr 00 Medical tablet Branch desvenlafax Yes Univmaria de jesus s ine 7-15 ity of succinate 00:00: [place] 50 mg 24 hr 00 Medical tablet Branch desvenlafax Yes Kelley s ine 7-15 ity of succinate 00:00: [place] 50 mg 24 hr 00 Medical tablet Branch desvenlafax Yes Kelley s ine 7-15 ity of succinate 00:00: [place] 50 mg 24 hr 00 Medical tablet Branch desvenlafax Yes [facility]maria de jesus s ine 7-15 ity of succinate 00:00: [place] 50 mg 24 hr 00 Medical tablet Branch desvenlafax Yes Univmaria de jesus s ine 7-15 ity of succinate 00:00: [place] 50 mg 24 hr 00 Medical tablet Branch 2020-11 Yes Take by Univer s vit 2-09 mouth. ity of calc,iron,f 14:57: [facility] [place] [facility] Medical ( Branch VITAMIN ORAL) 2020-11 Yes Take by Univer s vit 2-09 mouth. ity of calc,iron,f 14:57: [facility] [place] [facility] Medical ( Branch VITAMIN ORAL) Nitrofurant 2020-11 Yes [id number] 100mg Take 1 Univers oin&Nit. 1-26 capsule by ity o f [employer]roc[employer] 00:00: mouth 2 [place] 100 [place] 00 (two) Medical capsule times Branch daily. Nitrofurant 2020-11- No [id number] 100mg Take 1 Univers oin&Nit. 1-26 12-10 [...] 01/29/21 at Branch 0915, STAT ondansetron Yes [id number] 4mg Take 1 Univers 4 mg 3-12 tablet by ity of disintegrat 00:00: mouth [place] ing tablet 00 every 8 Medica l (eight) Branch hours as needed for Nausea and Vomiting (N/V). ondansetron Yes [id number] 4mg Take 1 Univers 4 mg 3-12 tablet by ity of disintegrat 00:00: mouth [place] ing tablet 00 every 8 Medica l (eight) Branch hours as needed for Nausea and Vomiting (N/V). ondansetron Yes [id number] 4mg Take 1 Univers 4 mg 3-12 tablet by ity of disintegrat 00:00: mouth [place] ing tablet 00 every 8 Medica l (eight) Branch hours as needed for Nausea and Vomiting (N/V). ondansetron No [id number] 4mg Take 1 Univers 4 mg 01-29 12-10 tablet by ity of disintegrat 00:00: 00:[place] :00 every 8 Medica l (eight) Branch hours as needed for Nausea and Vomiting (N/V). cephALEXin 2020- No [id number] 500mg Take 1 Univers (KEFLEX) 01-29 03-20 capsule by ity of 500 mg 00:00: 04:59 mouth 3 [place] capsule 00 :00 (three) Medical times Branch daily for 7 days. dicyclomine No [id number] 10mg Take 1 Univers (BENTYL) 10 01-29-18 capsule by i ty of mg capsule 00:00: 04:59 mouth [place] 00 :00 every 8 Medical (eight) Branch hours as needed for Abdominal pain for up to 5 days. Immunizations Ordered Filled Date Status Comments Source Immunization Name Immunization Name [facility] 2012-11-20 Completed University of 00:00:00 [facility] TDAP 2012-11-20 Completed University of 00:00:00 [facility] TDAP 2012-11-20 Completed University of 00:00:00 [facility] TDAP 2012-11-20 Completed University of 00:00:00 [facility] TDAP 2012-11-20 Completed University of 00:00:00 [facility] TDAP 2012-11-20 Completed University of 00:00:00 [facility] TDAP 2012-11-20 Completed University of 00:00:00 [facility] TDAP 2012-11-20 Completed University of 00:00:00 [facility] TDAP 2012-11-20 Completed University of 00:00:00 [facility] TDAP 2012-11-20 Completed University of 00:00:00 [facility] TDAP 2012-11-20 Completed University of 00:00:00 [facility] TDAP 2012-11-20 Completed University of 00:00:00 [facility] TDAP 2012-11-20 Completed University of 00:00:00 [facility] TDAP 2012-11-20 Completed University of 00:00:00 [facility] TDAP 2012-11-20 Completed University of 00:00:00 [facility] TDAP 2012-11-20 Completed University of 00:00:00 [facility] TDAP 2012-11-20 Completed University of 00:00:00 [facility] TDAP 2012-11-20 Completed University of 00:00:00 [facility] Branch TDAP 2012-11-20 Completed University of 00:00:00 [facility] TDAP 2012-11-20 Completed University of 00:00:00 [facility] Branch TDAP 2012-11-20 Completed University of 00:00:00 [facility] TDAP 2012-11-20 Completed University of 00:00:00 [facility] DTAP 2002-02-27 Completed University of 00:00:00 [facility] Polio (IPV/OPV) 2002-02-27 Completed Universit y of 00:00:00 [facility] MMR 2002-02-27 Completed University of 00:00:00 [facility] Pneumococcal 7 2002-02-27 Completed University of Conjugate, PCV7 00:00:00 [place] [facility] (Prevnar7) Branch DTAP 2002-02-27 Completed University of 00:00:00 [facility] MMR 2002-02-27 Completed University of 00:00:00 [facility] Pneumococcal 7 2002-02-27 Completed University of Conjugate, PCV7 00:00:00 [place] [facility] ical (Prevnar7) Branch Polio (IPV/OPV) 2002-02-27 Completed Universit y of 00:00:00 [facility] DTAP 2002-02-27 Completed University of 00:00:00 [facility] Polio (IPV/OPV) 2002-02-27 Completed Universit y of 00:00:00 [facility] MMR 2002-02-27 Completed University of 00:00:00 [facility] Pneumococcal 7 2002-02-27 Completed University of Conjugate, PCV7 00:00:00 [place] [facility] ical (Prevnar7) Branch DTAP 2002-02-27 Completed University of 00:00:00 [facility] MMR 2002-02-27 Completed University of 00:00:00 [facility] Pneumococcal 7 2002-02-27 Completed University of Conjugate, PCV7 00:00:00 [place] [facility] ical (Prevnar7) Branch Polio (IPV/OPV) 2002-02-27 Completed Universit y of 00:00:00 [facility] DTAP 2002-02-27 Completed University of 00:00:00 [facility] Polio (IPV/OPV) 2002-02-27 Completed Universit y of 00:00:00 [facility] MMR 2002-02-27 Completed University of 00:00:00 [facility] Pneumococcal 7 2002-02-27 Completed University of Conjugate, PCV7 00:00:00 [place] [facility] ical (Prevnar7) Branch DTAP 2002-02-27 Completed University of 00:00:00 [facility] MMR 2002-02-27 Completed University of 00:00:00 [facility] Pneumococcal 7 2002-02-27 Completed University of Conjugate, PCV7 00:00:00 [place] [facility] ical (Prevnar7) Branch Polio (IPV/OPV) 2002-02-27 Completed Universit y of 00:00:00 [facility] DTAP 2002-02-27 Completed University of 00:00:00 [facility] Polio (IPV/OPV) 2002-02-27 Completed Universit y of 00:00:00 [facility] MMR 2002-02-27 Completed University of 00:00:00 [facility] Pneumococcal 7 2002-02-27 Completed University of Conjugate, PCV7 00:00:00 [place] [facility] ical (Prevnar7) Branch DTAP 2002-02-27 Completed University of 00:00:00 [facility] MMR 2002-02-27 Completed University of 00:00:00 [facility] Pneumococcal 7 2002-02-27 Completed University of Conjugate, PCV7 00:00:00 [place] [facility] (Prevnar7) Branch Polio (IPV/OPV) 2002-02-27 Completed Universit y of 00:00:00 [facility] DTAP 2002-02-27 Completed University of 00:00:00 [facility] Polio (IPV/OPV) 2002-02-27 Completed Universit y of 00:00:00 [facility] MMR 2002-02-27 Completed University of 00:00:00 [facility] Pneumococcal 7 2002-02-27 Completed University of Conjugate, PCV7 00:00:00 [place] [facility] ical (Prevnar7) Branch DTAP 2002-02-27 Completed University of 00:00:00 [facility] MMR 2002-02-27 Completed University of 00:00:00 [facility] Pneumococcal 7 2002-02-27 Completed University of Conjugate, PCV7 00:00:00 [place] [facility] ical (Prevnar7) Branch Polio (IPV/OPV) 2002-02-27 Completed Universit y of 00:00:00 [facility] TDAP Unknown [facility] Vital Signs Vital Name Observation Time Observation Value Comments Source Systolic blood 2022-09-05 20:16:00 116 mm[Hg] Univer sity of pressure [facility] Diastolic blood 2022-09-05 20:16:00 78 mm[Hg] Unive rsity of pressure [facility] Branch Heart rate 2022-09-05 20:16:00 75 /min Universi ty of [place] [facility] Body temperature 2022-09-05 20:16:00 36.67 Blanka Univ ersity of [place] [facility] Respiratory rate 2022-09-05 20:16:00 18 /min Univ ersity of [facility] Body height 2022-09-05 20:16:00 154.9 cm Universi ty of [place] [facility] Body weight 2022-09-05 20:16:00 52.617 kg Universi ty of [place] [facility] BMI 2022-09-05 20:16:00 21.92 kg/m2 Universi ty of [place] [facility] Systolic blood 2022-08-16 21:29:00 117 mm[Hg] Univer sity of pressure [place] [facility] Diastolic blood 2022-08-16 21:29:00 78 mm[Hg] Unive rsity of pressure [place] [facility] Heart rate 2022-08-16 21:29:00 84 /min Universi ty of [place] [facility] Body temperature 2022-08-16 21:29:00 36.94 Blanka Univ ersity of [place] [facility] Respiratory rate 2022-08-16 21:29:00 18 /min Univ ersity of [place] [facility] Body height 2022-08-16 21:29:00 154.9 cm Universi ty of [place] [facility] Body weight 2022-08-16 21:29:00 55.475 kg Universi ty of [place] [facility] BMI 2022-08-16 21:29:00 23.11 kg/m2 Universi ty [facility] [place] [facility] Systolic blood 2022-08-12 20:22:00 115 mm[Hg] Univer sity of pressure [place] [facility] Diastolic blood 2022-08-12 20:22:00 78 mm[Hg] Unive rsity of pressure [place] [facility] Heart rate 2022-08-12 20:22:00 67 /min Universi ty [facility] [place] [facility] Body temperature 2022-08-12 20:22:00 36.78 Blanka Univ ersity of [place] [facility] Body height 2022-08-12 20:22:00 154.9 cm Universi ty of [place] [facility] Body weight 2022-08-12 20:22:00 54.976 kg Universi ty of [place] [facility] BMI 2022-08-12 20:22:00 22.90 kg/m2 Universi ty of [place] [facility] Systolic blood 2022-08-11 23:55:00 114 mm[Hg] Univer sity of pressure [place] [facility] Diastolic blood 2022-08-11 23:55:00 69 mm[Hg] Unive rsity of pressure [place] [facility] Heart rate 2022-08-11 23:55:00 67 /min Universi ty of [place] [facility] Oxygen saturation in 2022-08-11 23:55:00 100 /min University of Arterial blood by [employer] Pulse oximetry Branch Respiratory rate 2022-08-11 23:35:00 13 /min Univ ersity of [place] [facility] Body temperature 2022-08-11 23:04:00 36.39 Blanka Univ ersity of [place] [facility] Body height 2022-08-11 14:29:00 154.9 cm Universi ty of [place] [facility] Body weight 2022-08-11 14:29:00 53.615 kg [facility]i ty [facility] [place] [facility] BMI 2022-08-11 14:29:00 22.33 kg/m2 Universi ty [facility] [place] [facility] Systolic blood 2022-08-11 23:05:00 107 mm[Hg] Univer sity of pressure [place] [facility] Diastolic blood 2022-08-11 23:05:00 65 mm[Hg] Unive rsity of pressure [place] [facility] Heart rate 2022-08-11 23:05:00 88 /min Universi ty [facility] [place] [facility] Oxygen saturation in 2022-08-11 23:05:00 96 /min University of Arterial blood by [employer] Pulse oximetry Branch Body temperature 2022-08-11 23:04:00 36.39 Blanka Univ ersity of [place] [facility] Respiratory rate 2022-08-11 21:27:00 16 [...] 16:18:00 74 mm[Hg] Unive rsity of pressure [place] [facility] Heart rate 2022-08-08 16:18:00 76 /min Universi ty of [facility] Body temperature 2022-08-08 16:18:00 36.67 Blanka Univ ersity of [facility] Respiratory rate 2022-08-08 16:18:00 16 /min Univ ersity of [place] [facility] Body height 2022-08-08 16:18:00 154.9 cm Universi ty [facility] [place] [facility] Body weight 2022-08-08 16:18:00 54.205 kg [facility]i [facility] [place] [facility] BMI 2022-08-08 16:18:00 22.58 kg/m2 Universi ty of [facility] Branch Oxygen saturation in 2022-08-08 16:18:00 98 /min [facility] Arterial blood by [facility] Pulse oximetry Branch Systolic blood 2021-10-28 20:56:00 113 mm[Hg] Univer sity of pressure [place] [facility] Diastolic blood 2021-10-28 20:56:00 75 mm[Hg] Unive rsity of pressure [place] [facility] Heart rate 2021-10-28 20:56:00 92 /min [facility]i ty [facility] [place] [facility] Body temperature 2021-10-28 20:56:00 36.83 Blanka Univ ersity of [facility] Respiratory rate 2021-10-28 20:56:00 18 /min Univ ersity of [place] [facility] Body height 2021-10-28 20:56:00 154.9 cm [facility]i ty [facility] [place] [facility] Body weight 2021-10-28 20:56:00 74.39 kg [facility]i ty [facility] [place] [facility] BMI 2021-10-28 20:56:00 30.99 kg/m2 [facility] [place] [facility] Heart rate 2021-10-15 02:00:00 74 /min [facility] [place] [facility] Oxygen saturation in 2021-10-15 02:00:00 99 /min University of Arterial blood by [facility] Pulse oximetry Branch Systolic blood 2021-10-15 01:15:00 111 mm[Hg] Univer sity of pressure [place] [facility] Diastolic blood 2021-10-15 01:15:00 65 mm[Hg] Unive rsity of pressure [facility] Body temperature 2021-10-15 01:15:00 36.78 Blanka Univ ersity of [place] [facility] Respiratory rate 2021-10-15 01:15:00 18 /min Univ ersity of [place] [facility] Body weight 2021-10-15 00:49:00 68.04 kg Universi ty of [facility] Systolic blood 2021-01-29 15:30:00 119 mm[Hg] Univer sity of [facility] Medical Comfort Diastolic blood 2021-01-29 15:30:00 81 mm[Hg] Unive rsity of [facility] Medical [facility]fort Heart rate 2021-01-29 15:30:00 65 /min Universi ty of [place] [facility] Respiratory rate 2021-01-29 15:30:00 17 /min [facility] ersity of [facility] Branch Oxygen saturation in 2021-01-29 15:30:00 98 /min University of Arterial blood by [facility] Pulse oximetry Branch Body temperature 2021-01-29 14:10:[address] [facility] ersity of [place] [facility] Body weight 2021-01-29 14:10:00 68.04 kg Universi ty of [place] [facility] Height Measured 2022-07-28 14:31:00 63.00 inches Body Temperature 2022-07-28 14:31:00 98.50 degrees Heart Rate 2022-07-28 14:31:00 77.00 /min Respiratory Rate 2022-07-28 14:31:00 BP Systolic 2022-07-28 14:31:00 106 mm[Hg] BP Diastolic 2022-07-28 14:31:00 74 mm[Hg] Weight Measured 2022-07-28 14:31:00 122.60 pounds Procedures Procedure Date / Time Performing Clinician Source Performed EXTERNAL PROVIDER RECORDS 2022-08-15 05:01:00 Doctor Unassigned, [facility] [place] [facility] US PELVIS LIMITED 2022-08-11 22:51:00 Adum, [facility] DILATION AND CURETTAGE 2022-08-11 21:47:00 Adum, Lisset [facility] COVID-19 (ID NOW RAPID 2022-08-11 20:13:00 Juany Burk [facility] TESTING) Medical Branch COVID-19 (ID NOW RAPID 2022-08-11 20:13:00 Juany Burk [facility] TESTING) Medical Branch LAB ONLY COVID 2022-08-11 20:13:00 Juany [facility] INTERPRETATION [facility] US FIRST 2022-08-11 17:58:08 Kia Dailey [facility] TRIMESTER LESS THAN 14 Medical B ranch WEEKS WITH TRANSVAGINAL US FIRST 2022-08-11 17:58:08 Ashlie [facility] TRIMESTER LESS THAN 14 Medical B ranch WEEKS WITH TRANSVAGINAL ABORH CONFIRMATION (LAB 2022-08-11 16:12:00 Kia Dailey [facility] ONLY) Medical Branch ABORH CONFIRMATION (LAB 2022-08-11 16:12:00 Ashlie [facility] ONLY) [facility] Branch HB ABO GROUPING 2022-08-11 14:48:00 Kia Dailey [facility] HB ABO GROUPING 2022-08-11 14:48:00 Kia Dailey [facility] LIPASE 2022-08-11 14:42:00 Kia Dailey [facility] MAGNESIUM 2022-08-11 14:42:00 Ashlie [facility] COMP. METABOLIC PANEL 2022-08-11 14:42:00 Kia Dailey [facility] ([id number]) [facility] TOTAL BETA HCG ASSAY 2022-08-11 14:42:[address] [facility] CBC WITH DIFF 2022-08-11 14:42:00 Kia Dailey [facility] [facility] URINALYSIS 2022-08-11 14:42:00 Juany Burk [facility] Branch LIPASE 2022-08-11 14:42:00 Kia Dailey Kimmy [facility] MAGNESIUM 2022-08-11 14:42:00 Kia Dailey [place] [facility] COMP. METABOLIC PANEL 2022-08-11 14:42:00 Kia Dailey [facility] ([id number]) [facility] TOTAL BETA HCG ASSAY 2022-08-11 14:42:[address] [facility] CBC WITH DIFF 2022-08-11 14:42:00 Kia Dailey Kimmy [facility] URINALYSIS 2022-08-11 14:42:00 Juany Burk [facility] CONSENT/REFUSAL FOR 2022-08-11 14:23:47 Doctor Heather [facility] DIAGNOSIS AND TREATMENT [place] [facility] CONSENT/REFUSAL FOR 2022-08-11 14:23:47 Doctor Heather [facility] DIAGNOSIS AND TREATMENT [facility] US FIRST 2022-08-09 19:12:00 [facility] TRIMESTER LESS THAN 14 Medical B ranch WEEKS WITH TRANSVAGINAL POCT TEST 2022-08-08 00:00:[address] [facility] DSU PRE-OP 2021-10-28 06:01:00 Doctor [facility] [place] [facility] POCT URINALYSIS W/O 2021-10-28 00:00:00 Lisset Calhoun [facility] SPECIFIC GRAVITY [facility] Branch CONSENT/REFUSAL FOR 2021-10-15 00:42:20 Doctor Heather [facility] DIAGNOSIS AND TREATMENT [place] [facility] POCT TEST 2021-01-29 16:14:00 José Miguel Lowery [facility] URINALYSIS 2021-01-29 16:11:00 José Miguel Lowery [facility] COMP. METABOLIC PANEL 2021-01-29 14:24:00 José Miguel Lowery [facility] ([id number]) [facility] CBC WITH DIFF 2021-01-29 14:24:00 Lowery, [facility] o f [facility] NOTICE OF PRIVACY 2021-01-29 13:58:25 Doctor Unassigned, [facility] PRACTICES [place] [facility] NOTICE OF PRIVACY 2021-01-29 13:58:11 Doctor Unassigned, [facility] [place] [facility] Plan of Care Planned Activity Planned Date Details Comments Source Goal Plan of Care Note [code = 28569-4] Goal Plan of Care Note [code = 44659-0] Goal Plan of Care Note [code = 83957-6] Goal Plan of Care Note [code = 69011-1] Goal Plan of Care Note [code = 51315-1] Goal Plan of Care Note [code = 62275-2] Goal Plan of Care Note [code = 29535-8] Encounters Start End Encounter Admission Attending Care Care Encounter Source Date/Time Date/Time Type Type Clinicians Facility Department ID 2023-08-14 2023-08-14 Outpatient SFA SFA [id number] [place] 15:26:56 15:26:56 0925 [place] 2023-07-21 2023-07-21 Outpatient SFA SFA [id number] Wai 15:42:22 15:42:22 0901 F [place] 2023-07-13 2023-07-13 Outpatient SFA SFA [id number] Wai 15:21:32 15:21:32 0824 F [place] 2023-04-24 2023-04-24 Outpatient SFA SFA [id number] Wai 15:32:18 15:32:18 0605 [facility] 2023-04-20 2023-04-20 Outpatient SFA SFA [id number] Wai 17:05:18 17:05:18 0601 [facility] 2023-03-06 2023-03-06 Outpatient R ARLYN GARBER [facility] B [id number] Univers 13:30:00 13:30:00 ARLYN GARBER [facility] 2022-09-05 2022-09-05 Outpatient R ARLYN GARBER [facility] B [id number] Univers 15:00:00 15:40:27 ARLYN GARBER [facility] 2022-09-05 2022-09-05 Office Jcarlos [facility] 1.2.840.114 [id number] Univers 15:00:00 15:40:27 Visit Arlyn CROWLEY 350.1.13.10 it y [place] [id number] [address] 2022-09-03 2022-09-03 Nurse Arlen Madden 1.2.840.114 [id number] Univers 00:00:00 00:00:00 Triage KAYLEE 350.1.13.10 it y of [facility] 4.2.7.2.686 Oscar as [id number] [address] 2022-08-31 2022-08-31 Public Speaker Keo Sood Lab Main [facility] 1.2.8 40.114 [id number] Univers 12:45:00 13:00:00 Visit Arlyn Garber 350.1.13. 10 ity [facility] [place] [id number] [place]ical [address] 2022-08-31 2022-08-31 Outpatient R ARLYN GARBER [facility] B [id number] Univers 12:45:00 12:45:00 ARLYN GARBER [facility] 2022-08-31 2022-08-31 Case KAVITA Garber [place] 1.2.840.114 [id number] Univers 00:00:00 00:00:00 Management Yvonnekelly CARLINE 350.1.13.10 it[place] [id number] [address] 2022-08-16 2022-08-16 Outpatient R ARLYN GARBER [facility] B [id number] Univers 16:30:00 16:59:16 ARLYN GARBER [facility] 2022-08-16 2022-08-16 Office Jcarlos [facility] 1.2.840.114 [id number] Univers 16:30:00 16:59:16 Visit Arlyn CROWLEY 350.1.13.10 it y [place] [id number] [facility] [address] 2022-08-15 2022-08-15 Outpatient R [facility] [id number] Univers 14:00:00 14:00:00 ity of [facility] 2022-08-15 2022-08-15 Orders Doctor DAVID 1.2.840.114 [id number] Univers 00:00:00 00:00:00 Only Unassigned, KAYLEE 350.1.13.10 ity of [place] [facility] 4.2.7.2.686 Oscar as [id number] [place] [address] Branch 2022-08-13 2022-08-13 Nurse DAVID Acevedo 1.2.840.114 [id number] Univers 00:00:00 00:00:00 Triage Mitchell PAGE 350.1.13.10 ity of [facility] 4.2.7.2.686 Oscar as [id number] [facility] 019 Branch 2022-08-12 2022-08-12 [facility] [id number] Univers 15:15:00 15:59:51 [facility] 2022-08-12 2022-08-12 Routine [facility] [place] 1.2.840.114 [id number] Univers 15:15:00 15:59:51 Arlyn CROWLEY 350.1.13.10 i ty of [place] [id number] [address] 2022-08-11 2022-08-11 Outpatient X ADUM, [facility] ARAVIND [id number] Univers 09:31:00 19:05:00 LISSET chow [facility] 2022-08-11 2022-08-11 Emergency Kia Dailey [facility] 1.2.840. 114 [id number] Univers 09:31:00 19:05:00 AdumLisset 350.1.13.10 ity [facility] [place] [id number] [facility] 071 Branch 2022-08-11 2022-08-11 Surgery Adum, [facility] 1.2.840.114 [id number] Univers 16:45:00 18:06:00 Lisset Longoria LATONIA 350.1.13.10 ity of [facility] [place] [id number] [facility] 020 Branch 2022-08-11 2022-08-11 Anesthesia Dunlap, [facility] 1.2.840.114 [id number] Univers 17:03:00 18:00:00 Event Roger ILNCOLN 350.1.13.10 ity of [facility] 4.2.[place] [id number] [facility] 020 Branch 2022-08-11 2022-08-11 Telephone [facility] 1.2.840.11 [id number] Univers 00:00:00 00:00:00 Arlyn CROWLEY 350.1.13.10 it y of WOMEN'S 4.2.7.[address] [place] [address] [id number] [facility] CLINIC 134 Branch 2022-08-10 2022-08-10 Emergency EM Lorenzo Mcmahan [facility] LA00 [id number] [facility] 07:03:00 11:45:00 28 [facility] 2022-08-09 2022-08-09 Outpatient R ARLYN GARBER [facility] B [id number] Univers 13:30:00 23:59:00 ARLYN GARBER ity of [facility] 2022-08-09 2022-08-09 [facility] 1.2.840.114 [id number] Univers 13:30:00 23:59:00 Encounter Arlyn LINCOLN 350.1.13.10 ity of [facility] 4.2.7.2.[address] [facility] [id number] [facility] 806 Branch 2022-08-09 2022-08-09 [facility] 1.2.840.114 [id number] Univers 00:00:00 00:00:00 Management Arlyn CROWLEY 350.1.13.10 it[place] [id number] [address] 2022-08-09 2022-08-09 Telephone Jcarlos [facility] 1.2.840.11 [id number] Univers 00:00:00 00:00:00 Arlyn CROWLEY 350.1.13.10 it [place] [id number] [address] 2022-08-08 2022-08-08 Outpatient R JCARLOS ARLYN [facility] B [id number] Univers 11:00:00 11:37:42 JCARLOSYVONNEKELLY chow [facility] 2022-08-08 2022-08-08 Initial Jcarlos [facility] 1.2.840.114 [id number] Univers 11:00:00 11:37:42 Arlyn CROWLEY 350.1.13.10 i ty of [place] [id number] [address] 2022-08-08 2022-08-08 Patient Jcarlos [facility] 1.2.840.114 [id number] Univers 00:00:00 00:00:00 Secure Msg Arlyn CROWLEY 350.1.13.10 it[place] [id number] [address] 2022-08-05 2022-08-05 Outpatient R ARLYN GARBER [facility] B [id number] Univers 09:30:00 09:30:00 JCARLOSYVONNEKELLY chow [facility] 2022-07-28 2022-07-28 Outpatient [id number] ce [id number] 00:00:00 00:00:00 Visit [id number] [id number] 2021-11-25 2021-11-25 Outpatient R GUANAKITO FOX [facility] [id number] Univers 16:00:00 16:00:00 ity of [facility] 2021-11-11 2021-11-11 Outpatient R SIERRA FOXEN [facility] [id number] Univers 15:45:00 15:45:00 ity [facility] 2021-11-03 2021-11-03 Outpatient R MAYUR [facility] [id number] Univers 16:40:00 16:40:00 ALEX ity [facility] 2021-10-28 2021-10-28 Initial Guanakito Fox Kev [facility] 1.2.840.114 [id number] Univers 14:39:23 16:29:30 Adzulay, Lisset LINCOLN 350.1.13.10 ity of Visit [place] 4.2.7.2.[address] [facility] [id number] N[place] dical [address] 2021-10-28 2021-10-28 Outpatient R JANESSA [facility] [id number] Univers 14:30:00 16:29:30 LISSET [facility] 2021-10-28 2021-10-28 Orders Doctor DAVID 1.2.840.114 [id number] Univers 00:00:00 00:00:00 Only Unassigned, KAYLEE 350.1.13.10 ity of [place] [facility] 4.2.7.2.686 Oscar [id number] [facility] [address] 2021-10-14 2021-10-14 Outpatient X SIERRA FOXEN [facility] ARAVIND [id number] Univers 18:50:00 20:22:00 ity of [facility] 2021-10-14 2021-10-14 Emergency Guanakito Fox [facility] 1.2.840.114 [id number] Univers 18:50:00 20:22:00 Kev LINCOLN 350.1.13.10 i ty of [place] 4.2.7.2.686 [facility] [id number] [facility] [address] 2021-01-29 2021-01-29 Emergency [facility] 1.2.933.842 [id number] Univers 08:04:00 11:39:00 José Miguel Lincoln 350.1.13.10 i ty of [place] 4.2.7.2.686 [facility] [id number] [facility] 084 Branch 2021-01-29 2021-01-29 Emergency X SINGER [facility] ERT [id number] Univers 08:04:00 08:04:00 JOSÉ MIGUEL chow of [facility] Results Test Description Test Time Test Comments Results Result Comments Source ABORH Confirmation (Lab Only) 2022-08-11 17:32:45 Test Item Value Reference Range Interpretation Comme nts ABO & RH (test code = 20) O Positive Pe rformed at [facility] Laboratory Services - [facility] Blood [address] [place] [address]Toll Free: [phone] A No. [id number] [facility] HospitalABORH Confirmation (Lab Only)2022-08-11 17:32:45 Test Item Value Reference Range Interpretation Comments ABO & RH (test code O Positive Performe d at [facility] = 20) Laboratory Serv [facility] Blood Bank1 [address] [place], [place] [address]Toll Free: [phone] A No. [id number] [facility]2022-08-11 16:07:11 Test Item Value Reference Range Interpretation Comments BETA HCG (test See_Comment [Automated m essage] code = The system [facility] [id number]) generated this result transmit blayne reference range : Non- fe male and male patien ts: <5 mIU/mL. The reference range was not used to interpret this result as normal/abnormal . TRUNG (test code Gestational Age ? ? = TRUNG) ?Range (mIU/mL) 1-10 ?Weeks ?82-79369205-36 Weeks ?88781-26397304-74 Weeks ?9385-32205316-80 Weeks ?9353-383632 Biotin has been reported to cause a negative bias, interpret results relative to patient's use of biotin. [facility] (QUANTITATIVE)2022-08-11 16:07:11 Test Item Value Reference Range Interpretation Comments BETA HCG (test See_Comment [Automated m essage] code = The system [employer] [id number]) generated this result transmit blayne reference range : Non- fe male and male patien ts: <5 mIU/mL. The reference range was not used to interpret this result as normal/abnormal . TRUNG (test code Gestational Age ? ? = TRUNG) ?Range (mIU/mL) 1-10 ?Weeks ?06-22004380-74 Weeks ?41841-87826283-35 Weeks ?6312-78054429-88 Weeks ?1230-342959 Biotin has been reported to cause a negative bias, interpret results relative to patient's use of biotin. [facility] HospitalType and Screen - ONCE [id number] 15:46:54 Test Item Value Reference Range Interpretation Comments ABO & RH (test code O Positive Performe d at [facility] = 20) Laboratory [facility] Blood [address] [place], [place] [address]Toll Free: [phone] A No. [id number] IAT (test code = Negative Performed a t [facility] 1185) Laboratory [facility] Blood [place] [address]Toll Free: [phone] A No. [id number] [facility] HospitalType and Screen - ONCE [id number] 15:46:54 Test Item Value Reference Range Interpretation Comments ABO & RH (test code O Positive Performe d at [facility] = 20) Laboratory [facility] Blood [address] [place], [place] [address]Toll Free: [phone] A No. [id number] IAT (test code = Negative Performed a t [facility] 1185) Laboratory [facility] Blood [address] [place], [place] [address]Toll Free: [phone] A No. [id number] [facility] HospitalCOMP. METABOLIC PANEL (26847)2022-08-11 15:22:15 Test Item Value Reference Range Interpretation Comments NA (test code = 138 mmol/L 135-145 5757389868) K (test code = 3.8 mmol/L 3.5-5 8857534132) CL (test code = 104 mmol/L 98-108 6697010429) CO2 TOTAL (test code = 23 mmol/L 23-31 8795630154) AGAP (test code = 2-16 2142165514) BUN (test code = 11 mg/dL 7-23 8415118231) GLUCOSE (test code = 109 mg/dL 70-110 6524679706) CREATININE (test code = 0.62 mg/dL 0.5-1.04 3662500018) TOTAL BILI (test code = 1.0 mg/dL 0.1-1.1 2366673556) CALCIUM (test code = 9.6 mg/dL 8.6-10.6 2436357847) T PROTEIN (test code = 6.7 g/dL 6.3-8.2 3597537976) ALBUMIN (test code = 4.4 g/dL 3.5-5 4799569543) ALK PHOS (test code = 37 U/L 34-122 4412700788) ALTv (test code = 80 U/L 5-35 H 1742-6) AST(SGOT) (test code = 98 U/L 13-40 H 6909076618) eGFR (test code = mL/min/1.73m2 7034864942) TRUNG (test code = TRUNG) Association of [...] tests). Lab Interpretation Abnormal (test code = 09577-3) [facility] HospitalMAGNESIUM2022-09-22 15:22:15 Test Item Value Reference Range Interpretation Comments MAGNESIUM (test code = 9751243293) 2.0 mg/dL 1.7-2.4 Lab Interpretation (test code = Normal 24213-1) [facility] HospitalCOMP. METABOLIC PANEL (21032)2022-08-11 15:22:15 Test Item Value Reference Range Interpretation Comments NA (test code = 138 mmol/L 135-145 6823028346) K (test code = 3.8 mmol/L 3.5-5 3351238806) CL (test code = 104 mmol/L 98-108 2227112730) CO2 TOTAL (test code = 23 mmol/L 23-31 1226672906) AGAP (test code = 2-16 2996396156) BUN (test code = 11 mg/dL 7-23 3703318937) GLUCOSE (test code = 109 mg/dL 70-110 9799112083) CREATININE (test code = 0.62 mg/dL 0.5-1.04 7030101714) TOTAL BILI (test code = 1.0 mg/dL 0.1-1.3 3410804825) CALCIUM (test code = 9.6 mg/dL 8.6-10.6 4331212394) T PROTEIN (test code = 6.7 g/dL 6.3-8.2 8210726113) ALBUMIN (test code = 4.4 g/dL 3.5-5 8377362780) ALK PHOS (test code = 37 U/L 34-122 1128195101) ALTv (test code = 80 U/L 5-35 H 1742-6) AST(SGOT) (test code = 98 U/L 13-40 H 0316328716) eGFR (test code = mL/min/1.73m2 6106248768) TRUNG (test code = TRUNG) Association of [...] tests). Lab Interpretation Abnormal (test code = 17028-1) [facility] HospitalMAGNESIUM2022-09-22 15:22:15 Test Item Value Reference Range Interpretation Comments MAGNESIUM (test code = 5906942296) 2.0 mg/dL 1.7-2.4 Lab Interpretation (test code = Normal 24259-0) [facility] HospitalLIPASE2022-09-22 15:21:55 Test Item Value Reference Range Interpretation Comments LIPASE (test code = 4956003370) 51 U/L 0-220 Lab Interpretation (test code = Normal 69798-8) [facility] HospitalLIPASE2022-09-22 15:21:55 Test Item Value Reference Range Interpretation Comments LIPASE (test code = 1653749145) 51 U/L 0-220 Lab Interpretation (test code = Normal 90112-2) [facility] Center HospitalCB WITH [id number] 15:04:09 Test Item Value Reference Range Interpretation [...] RDW-SD (test code = 42.2 fL 39-49.9 56217-6) RDW-CV (test code = 13.5 % 12-15.5 788-0) PLT (test code = See_Comment H [Automated 777-3) message] The sy stem which generated this result transmitted reference range : 166 - 358 10*3/ ?L. The reference r brenna was not used to interpret this result as normal/abnormal . MPV (test code = 10.1 fL 9.5-12.9 82266-5) NRBC/100 WBC (test See_Comment [Automat ed code = 4168355777) message] The system which generated this result transmitted reference range : 0.0 - 10.0 /100 WBCs. The refer ence range was not u sed to interpret th is result as normal/abnormal . NRBC x10^3 (test code See_Comment [Auto mated = 4501988658) message] The s ystem which generated this result transmitted reference range : 10*3/?L. The reference range was not used to interpret this result as normal/abnormal . GRAN MAT (NEUT) % 77.4 % (test code = 770-8) IMM GRAN % (test code 0.40 % = 7076452167) LYMPH % (test code = 14.9 % 736-9) MONO % (test code = 6.8 % 5905-5) EOS % (test code = 0.3 % 713-8) BASO % (test code = 0.2 % 706-2) GRAN MAT x10^3(ANC) 8.79 10*3/uL 1.88-7.09 H (test code = 5538509475) IMM GRAN x10^3 (test 0.04 10*3/uL 0-0.06 code = 7969866428) LYMPH x10^3 (test code 1.69 10*3/uL 1.32-3.29 = 731-0) MONO x10^3 (test code 0.77 10*3/uL 0.33-0.92 = 742-7) EOS x10^3 (test code = 0.03 10*3/uL 0.03-0.39 711-2) BASO x10^3 (test code 0.01-0.07 = 704-7) Lab Interpretation Abnormal (test code = 76894-1) [facility] WITH [id number] 15:04:09 Test Item Value Reference Range Interpretation Comments WBC (test code = See_Comment H [Automated 0790-2) message] The sy stem which generated this result transmitted reference range : 4.30 - 11.10 10*3/?L. The reference range was not used to interpret this result as normal/abnormal . RBC (test code = See_Comment [Automated 199-8) message] The sy stem which generated this [...] RDW-SD (test code = 42.2 fL 39-49.9 34090-5) RDW-CV (test code = 13.5 % 12-15.5 788-0) PLT (test code = See_Comment H [Automated 777-3) message] The sy stem which generated this result transmitted reference range : 166 - 358 10*3/ ?L. The reference r brenna was not used to interpret this result as normal/abnormal . MPV (test code = 10.1 fL 9.5-12.9 51183-2) NRBC/100 WBC (test See_Comment [Automat ed code = 2557209057) message] The system which generated this result transmitted reference range : 0.0 - 10.0 /100 WBCs. The refer ence range was not u sed to interpret th is result as normal/abnormal . NRBC x10^3 (test code See_Comment [Auto mated = 5100668365) message] The s ystem which generated this result transmitted reference range : 10*3/?L. The reference range was not used to interpret this result as normal/abnormal . GRAN MAT (NEUT) % 77.4 % (test code = 770-8) IMM GRAN % (test code 0.40 % = 7841410281) LYMPH % (test code = 14.9 % 736-9) MONO % (test code = 6.8 % 5905-5) EOS % (test code = 0.3 % 713-8) BASO % (test code = 0.2 % 706-2) GRAN MAT x10^3(ANC) 8.79 10*3/uL 1.88-7.09 H (test code = 5692308834) IMM GRAN x10^3 (test 0.04 10*3/uL 0-0.06 code = 5741560198) LYMPH x10^3 (test code 1.69 10*3/uL 1.32-3.29 = 731-0) MONO x10^3 (test code 0.77 10*3/uL 0.33-0.92 = 742-7) EOS x10^3 (test code = 0.03 10*3/uL 0.03-0.39 711-2) BASO x10^3 (test code 0.01-0.07 = 704-7) Lab Interpretation Abnormal (test code = 26924-7) [facility]- DUP AB/PEL/SC [id number] 09:21:00 [facility] : 1995 Sex: F Name: AISLINN BURK [facility] : 1995 Age/S: 26 / F [address] #: [id number]: [place] [address] Phys: Lorenzo Mcmahan Acct: [id number] Dis Date: Status: REG ER PHONE #: [phone] Exam Date: 08/10/2022 0908 FAX #: Reason: PREG, BLEEDING EXAMS: CPT: [id number] DUP AB/PEL /SC COMP 51594 History: pain/bleeding Comparison: None at this time [...] PAGE 1 Signed Report (CONTINUED) Name: AISLINN BURKland : 1995 Age/S: 26 / [address] [place] Unit #: [id number] Loc: [place] [address] Phys: Lorenzo Mcmahan DO Acct: [id number] Dis Date: Status: REG ER PHONE #: [phone] Exam Date: 08/10/2022 0908 FAX #: Reason: PREG, BLEEDING EXAMS: CPT: [id number] DUP AB/PEL/SC COMP 38999 (Continued) CC: Leroy Cool MD; Lorenzo Payton Technologist: Hallie Garcia [facility] Date/Time: 08/10/2022 (920) [email or web address] PAGE 2 Signed Report Name: AISLINN BURK [place] : 1995 Age/S: 26 / F [address] #: [id number] Loc: [place] [address] Phys: Lorenzo Mcmahan DO Acct: [id number] Dis Date: Status: REG ER PHONE #: [phone] Exam Date: 08/10/2022 0908 FAX #: Reason: PREG, BLEEDING EXAMS: CPT: [id number] DUP AB/ PEL/SC COMP 11967 (Continued) Orig Print D/T: S: 08/10/2022 (09) Probe: PAGE 3 Signed Report- US PREG 1ST [id number] 09:21:00 [facility] : 1995 Sex: F Name: AISLINN BURK [facility] : 1995 Age/S: 26 / F [address] Unit #: [id number] Loc: [place] [address] Phys: Lorenzo Mcmahan Acct: [id number] Dis Date: Status: REG ER PHONE #: [phone] Exam Date: 08/10/2022906 FAX #: Reason: pain/bleeding EXAMS: CPT: [id number] US PREG 1ST TRIMTR 46746 History: pain/bleeding Comparison: None at this time Location: [facility] Transabdominal and endovaginal sonography of the pelvis was performed. A single intrauterine is identified. Thecrown-rump length measures approximately 1.68 cm. No heartbeat is identified. There is a subch orionic hemorrhage, measuring 4.0 x 3.5 x 6.2 [...] BURK : 1995 Age/S: 26 / F [address] [address] [place] [place] Unit #: [id number] Loc: [place] [address] Phys: Lorenzo Mcmahan DO Acct: [id number] Date: Status: REG ER PHONE #: [phone] Exam Date: 08/10/2022 0907 FAX #: Reason: pain/bleeding EXAMS: CPT: [id number] US PREG 1ST TRIMTR 98660 (Continued) CC: Lorenzo Mcmahan DO Technologist: Hallie Garcia Trnscb Date/Time: 08/10/2022 (920) IfrahPMT PAGE 2 Signed Report Name: AISLINN BURK : 1995 Age/S: 26 / F [address] [address] [place] [place] Unit #: [id number] Loc: [place] [address] Phys: Lorenzo Mcmahan DO Acct: [id number] Dis Date: Status: REG ER PHONE #: [phone] Exam Date: 08/10/2022 0907 FAX #: Reason: pain/bleeding EXAMS: CPT: [id number] US PREG 1ST TRIMTR 20214 (Continued) Orig Print D/T: S: 08/10/2022 (924) Probe: PAGE 3 Signed Report- US TRANSVAGINAL NON [id number] 09:21:00 [facility] : 1995 Sex: F Name: AISLINN BURKland : 1995 Age/S: 26 / F [address] [address] [place] Unit #: [id number] Loc: [place] [address] Phys: Lorenzo Mcmahan DO Acct: [id number] Dis Date: Status: REG ER PHONE #: [phone] Exam Date: 08/10/2022907 FAX #: Reason: pain/bleeding EXAMS: CPT: [id number] US TRANSVAG INAL NON OB [address] History: pain/bleeding Comparison: None at this time [...] M.D. PAGE 1 Signed Report (CONTINUED) Name: WMAISLINN [facility] Sarah : 1995 Age/S: 26 /F [address] Unit #: [id number] Loc: [place] [address] Phys: Lorenzo Mcmahan DO Acct: [id number] Dis Date: Status: REG ER PHONE #: [phone] Exam Date: 08/10/2022907 FAX #: Reason: pain/bleeding EXAMS: CPT: [id number] [place] [address] (Continued) CC: Lorenzo Mcmahan DO Technologist: Hallie Garcia [facility] Date/Time: 08/10/2022 (0921) IfrahPMT PAGE 2 Signed Report Name: AISLINN BURK : 1995 Age/S: 26 / F [address] Unit #: [id number] Loc: [place] [address] Phys: Lorenzo Mcmahan DO Acct: [id number] Dis Date: Status: REG ER PHONE #: [phone] Exam Date: 08/10/2022 09 FAX #: Reason: pain/bleeding EXAMS: CPT: [id number] [place] [address] (Continued) Orig Print D/T: S: 08/10/2022 (924) Probe: [id number] PAGE 3 Signed ReportHCG [id number] 08:39:00 Test Item Value Reference Range Interpretation Comments HCG SERUM (test 51589 mi-IU/ML 0-6 H 0 - 6 NOT > 6 code = HCG) SUGGESTIVE OF E KATIE RISES TWO FOLD EVERY 2 DA YS; SUGGEST RECONFI RMING AFTER 2 DAYS. 150,000-200,[address] TRIMESTER 10,00 0 - 50,000 2ND & 3R D TRIMESTER UA RFLX MICR CULT IF [id number] 08:26:00 Test Item Value Reference Range Interpretation [...] Indication for culture: RiskForSepsis-no oth srcBASIC METABOLIC [id number] 08:10:00 Test Item Value Reference Range Interpretation [...] CA) 10.0 MG/DL 8.5-10.1 N HEPATIC FUNCTION [id number] 08:10:00 Test Item Value Reference Range Interpretation [...] 34 Unit/L 45-117 L code = ALKP) [id number] 08:10:00 Test Item Value Reference Range Interpretation Comments LIPASE (test code = LIP) 29 Unit/L 114-286 L CBC W/AUTO [id number] 07:59:00 Test Item Value Reference Range Interpretation [...] code NO DIFF/SCN CRITERIA = MDIFF) POCT [id number] 16:30:00 Test Item Value Reference Range Interpretation Comments POCT PREG (test code = 1605) Positive On board controls acceptable with C Yes Line (test code = 3574) POCT PREG LOT # (test code = 3575) POCT PREG TEST DATE (test code = 3576) [facility] [id number] 09:51:52SPECIMEN NUMBER: [id number] CULTURE, URINE SPECIMEN NUMBER: [id number] SPECIMEN COMMENT: URINE SOURCE:URINE REPORT STATUS: FINAL FINAL REPORT: 07/30/2022 10-50,000 CFU/ML UROGENITAL YANNI PRESENT NO COMMON PATHOGENSCBC W/AUTO DIFF WITH [id number] 08:02:01 Test Item Value Reference Range Interpretation [...] RBCS 0.00 K/UL 0.00-0.11 (test code = 89064) HCG, [id number] 06:09:47 Test Item Value Reference Range Interpretation Comments HCG, QUANTITATIVE 77347 MIU/ML SEE BELOW E XPECTED (test code = 2506) VALUES FO R HCG GST.AGE UNITS RANGE GST. AGE UNITS RANGE3 WEEKS CT U/ML 6-71 10 WEEKS M IU/ML 46,509-186,9774 [...] . . . . . . MIU/ML 1-7FLVT-AZMDOYF REEMA FEMALES . . . . . . . . . . . . MIU/M L <=7 UNLESS OTHERWIS E INDICATED, ALL TESTING PERFORM [facility] [place] [place] [address] [facility] DIRECTOR: Latasha QUIROGAIA NUMBER [id number] CAP ACCREDITATION N O. [id number] POCT URINALYSIS W/O SPECIFIC [id number] 21:04:00 Test Item Value Reference Range Interpretation [...] = 3257) N/A Negative - Negative [facility]2021-[facility]-12 16:50:35 Test Item Value Reference Range Interpretation Comments APPEARANCE (test code = Hazy Clear A 2210479454) COLOR (test code = Yellow Yellow 4199758141) PH (test code = 4.8-8.0 0465637840) SP GRAVITY (test code = 1.003-1.030 9774648233) GLU U QUAL (test code = Normal Normal 2204692366) BLOOD (test code = Negative Negative 6073610453) KETONES (test code = 20 mg/dL Negative A 6710680603) PROTEIN (test code = Negative Negative 2887-8) UROBILIN (test code = 2.0 mg/dL Normal A 6226100919) BILIRUBIN (test code = Negative Negative 8004072518) NITRITE (test code = Negative Negative 3270317900) LEUK KASHMIR (test code = 25/uL Negative A 5948816194) RBC/HPF (test code = See_Comment [Autom ated message] 0902619859) The system whic h generated this result transmit blayne reference range : 0 - 3 HPF. The refe rence range was not u sed to interpret th is result as normal/abnormal . WBC/HPF (test code = See_Comment H [Autom ated message] 0581380420) The system Petsy generated this result transmit blayne reference range : 0 - 5 HPF. The refe rence range was not u sed to interpret th is result as normal/abnormal . BACTERIA (test code = Moderate Negative A 6853702204) MUCOUS (test code = Marked Negative LPF A 1530084773) SQ EPITH (test code = HPF 1888540804) Lab Interpretation (test Abnormal code = 69350-6) [facility] [id number] 16:14:00 Test Item Value Reference Range Interpretation Comments POCT PREG (test code = 1605) negative On board controls acceptable with present C Line (test code = 3574) POCT PREG LOT # (test code = 3575) [id number] POCT PREG TEST DATE (test 2022-09-19 code = 3576) Lab Interpretation (test code = Normal 30308-7) [facility]. METABOLIC PANEL (36355)2021-01-29 15:11:52 Test Item Value Reference Range Interpretation Comments NA (test code = 143 mmol/L 135-145 0759826531) K (test code = 3.2 mmol/L 3.5-5.0 L 1990232570) CL (test code = 102 mmol/L 98-108 6132545547) CO2 TOTAL (test code = 30 mmol/L 23-31 6815528584) AGAP (test code = 2-16 9769876808) BUN (test code = 15 mg/dL 7-23 3298835403) GLUCOSE (test code = 106 mg/dL 70-110 8500854830) CREATININE (test code = 0.81 mg/dL 0.50-1.04 9230438448) TOTAL BILI (test code = 0.9 mg/dL 0.1-1.3 7075426345) CALCIUM (test code = 9.6 mg/dL 8.6-10.6 1248086211) T PROTEIN (test code = 7.4 g/dL 6.3-8.2 6056095686) ALBUMIN (test code = 4.7 g/dL 3.5-5.0 1858720887) ALK PHOS (test code = 37 U/L 34-122 3403960375) ALTv (test code = 39 U/L 5-35 H 1742-6) AST(SGOT) (test code = 75 U/L 13-40 H 4948694402) eGFR Calculation mL/min/1.73m2 (Non-) (test code = 0881806493) eGFR Calculation mL/min/1.73m2 () (test code = 1987684530) TRUNG (test code = TRUNG) Association of [...] tests). Lab Interpretation Abnormal (test code = 18904-2) [facility] WITH [id number] 14:36:28 Test Item Value Reference Range Interpretation Comments WBC (test code = See_Comment [Automated message] 6690-2) The system Petsy generated this result transmitted ref erence range: 4.30 - 1 1.10 10*3/?L. The re ference range was not u sed to interpret this result as normal/abnor mal. RBC (test code = See_Comment [Automated message] 789-8) The system Pets[employer] generated this result transmitted ref erence range: [...] RDW-SD (test code 39.2 fL 39.0-49.9 = 22842-8) RDW-CV (test code 12.9 % 12.0-15.5 = 788-0) PLT (test code = See_Comment [Automated message] 377-3) The system P[employer] generated this result transmitted ref erence range: 166 - 35 8 10*3/?L. The re ference range was not u sed to interpret this result as normal/abnor mal. MPV (test code = 10.5 fL 9.5-12.9 99641-7) NRBC/100 WBC (test See_Comment [Automat ed message] code = 3279746177) The [employer] which generated this result transmitted ref erence range: 0.0 - 10 .0 /100 WBCs. The refer ence range was not u sed to interpret this result as normal/abnor mal. NRBC x10^3 (test <0.01 See_Comment [Automated message] code = 0410859790) The syste m which generated this result transmitted ref erence range: 10*3/?L. The reference range was not used to interpr et this result as normal/abnormal . GRAN MAT (NEUT) % 71.8 % (test code = 770-8) IMM GRAN % (test 0.40 % code = 7447671604) LYMPH % (test code 18.5 % = 736-9) MONO % (test code 7.8 % = 5905-5) EOS % (test code = 1.2 % 713-8) BASO % (test code 0.3 % = 706-2) GRAN MAT 6.81 10*3/uL 1.88-7.09 x10^3(ANC) (test code = 4455563037) IMM GRAN x10^3 0.04 10*3/uL 0.00-0.06 (test code = 1958445735) LYMPH x10^3 (test 1.76 10*3/uL 1.32-3.29 code = 731-0) MONO x10^3 (test 0.74 10*3/uL 0.33-0.92 code = 742-7) EOS x10^3 (test 0.11 10*3/uL 0.03-0.39 code = 711-2) BASO x10^3 (test 0.03 10*3/uL 0.01-0.07 code = 704-7) [facility] (COVID-19) by RT-PCR (HIGH RISK) 2021-01-26 00:00:00 Test Item Value Reference Range Interpretation Comments SARS-CoV-2 INTERPRETATION NEGATIVE (test code = 16833) SOURCE (test code = 07499) NASOPHARYNGEAL SARS-CoV-2 (COVID-19) by RT-PCR (HIGH RISK)2021-01-26 00:00:00 Test Item Value Reference Range Interpretation Comments SARS-CoV-2 INTERPRETATION NEGATIVE (test code = 50430) SOURCE (test code = 09215) NASOPHARYNGEAL"
[2023-09-09 12:44] LABS: Absolute Lymphocytes (CBC) 2.3 K/uL (0.7-4.9); Hematocrit 36.7 % (36.0-45.0); Lymphocytes % 24.1 % (15.3-44.8); MCV 88.1 fL (80-100); MPV 8.1 fL (7.6-11.3); Platelets 324 thou/uL (152-406); RBC Red Blood Cell Count 4.17 M/uL (3.86-4.86)
[2023-09-09] MEDS ORDERED: ONDANSETRON 4 MG/2 ML VIAL ONE (12:53)
[2023-09-09 13:02] LABS: BUN Blood Urea Nitrogen 13 mg/dL (7-18); Bicarbonate 28 mEq/L (21-32); Glomerular Filtration Rate 93 ml/min (=/>90); Glucose Level 116 mg/dL (74-106); Sodium Level 138 mEq/L (136-145)
[2023-09-09 13:06] LABS: HCG, Quantitative < 1 mIU/mL (1-3)
[2023-09-09 13:54] LABS: Specific Gravity 1.025 (1.005-1.030); Urine Bacteria <20 /HPF (<20); Urine Bilirubin NEGATIVE (Negative); Urine Blood 3+ (OVER) (Negative); Urine Clarity Extremely Turbid (Clear); Urine Color Light-Orange (Yellow); Urine Glucose NEGATIVE (Negative); Urine Mucus Slight /HPF (None Seen); Urine Protein TRACE (Negative); Urine RBC >50 /HPF (None Seen); Urine Urobilinogen Normal (Normal); Urine pH 5.5 (5.0-7.0)
--- NOTE | 2023-09-09 14:34 | EDPHYS ---
Physician Documentation [facility] Name: Cely Clancy Age: 27 yrs Sex: Female : 1995 Arrival Date: 09/09/2023 Time: 12:00 Bed 18 Private MD: ED Physician Fahad Sethi HPI: 09/09 12:10 This 27 yrs old Female presents to ER via Ambulatory with complaints of Vaginal jh7 Bleeding, + Preg <12wks. 12:10 The patient presents to the emergency department with vaginal bleeding, that is light, jh7 described as spotting, with no clots. The estimated gestational age is 8 weeks. 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 Previous pregnancies: in previous pregnancies patient has had. Associated signs and symptoms: Pertinent negatives:. Symptoms started yesterday. 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 - Social history:: Smoking status: Patient denies any tobacco usage or history of. ROS: 12:10 Constitutional: Negative for fever, chills, and weight loss, Eyes: Negative for injury, jh7 pain, redness, and discharge, Cardiovascular: Negative for chest pain, palpitations, and edema, Respiratory: Negative for shortness of breath, cough, wheezing, and pleuritic chest pain, Back: Negative for injury and pain, MS/Extremity: Negative for injury and deformity, Skin: Negative for injury, rash, and discoloration, Neuro: Negative for headache, weakness, numbness, tingling, and seizure, 12:10 Abdomen/GI: Positive for abdominal cramps, Negative for nausea, vomiting, and diarrhea, 12:10 : Positive for vaginal bleeding, Negative for urinary symptoms, pelvic pain, 12:10 All other systems are negative, Exam: 12:10 Constitutional: This is a well developed, well nourished patient who is awake, alert, jh7 and in no acute distress. Head/Face: Normocephalic, atraumatic. Neck: Trachea midline, no thyromegaly or masses palpated, and no cervical lymphadenopathy. Supple, full range of motion without nuchal rigidity, or vertebral point tenderness. No Meningismus. Cardiovascular: Regular rate and rhythm with a normal S1 and S2. No gallops, murmurs, or rubs. Normal PMI, no JVD. No pulse deficits. Respiratory: Lungs have equal breath sounds bilaterally, clear to auscultation and percussion. No rales, rhonchi or wheezes noted. No increased work of breathing, no retractions or nasal flaring. Abdomen/GI: Soft, non-tender, with normal bowel sounds. No distension or tympany. No guarding or rebound. No evidence of tenderness throughout. Back: No spinal tenderness. No costovertebral tenderness. Full range of motion. Skin: Warm, dry with normal turgor. Normal color with no rashes, no lesions, and no evidence of cellulitis. MS/ Extremity: Pulses equal, no cyanosis. Neurovascular intact. Full, normal range of motion. Neuro: Awake and alert, GCS 15, oriented to person, place, time, and situation. Motor strength 5/5 in all extremities. Sensory grossly intact. Normal gait. Vital Signs: 12:10 BP 114 / 85; Pulse 70; Resp 18; Temp 98.6(O); Pulse Ox 100% ; Weight 54.43 kg; Height 5 eh3 ft. 1 in. ; 13:35 BP 112 / 74; Pulse 105; Resp 18; Pulse Ox 99% on R/A; eh3 12:10 Body Mass Index 22.67 (54.43 kg, 154.94 cm) 3 MDM: 12:02 Patient medically screened. [facility] 14:20 Differential diagnosis: threatened Ab, complete Ab, retained Ab. Data reviewed: vital [facility] signs, nurses notes, lab test result(s), radiologic studies, ultrasound. I considered the following discharge prescriptions or medication management in the emergency department Medications were administered in the Emergency Department. See MAR. Counseling: I had a detailed discussion with the patient and/or guardian regarding the historical points, exam findings, and any diagnostic results supporting the discharge/admit diagnosis, the need for outpatient follow up, an OB/Gyne specialist, to return to the emergency department if symptoms worsen or persist or if there are any questions or concerns that arise at home. 09/09 12:20 Order name: Abo/rh Typing; Complete Time: 13:14 [facility] 09/09 12:20 Order name: Basic Metabolic Panel; Complete Time: 13:14 [facility] 09/09 12:20 Order name: CBC with Diff; Complete Time: 13:14 [facility] 09/09 12:20 Order name: Test, Urine; Complete Time: 13:56 [facility] 09/09 12:20 Order name: Quantitative Hcg; Complete Time: 13:14 [facility] 09/09 12:20 Order name: Urinalysis w/ reflexes; Complete Time: 13:56 [facility] 09/09 12:20 Order name: US Transvaginal Ob; Complete Time: 15:22 [facility] 09/09 12:20 Order name: IV Saline Lock; Complete Time: 12:44 [facility] 09/09 12:20 Order name: Labs collected and sent; Complete Time: 12:44 [facility] 09/09 12:20 Order name: NPO; Complete Time: 12:44 [facility] Administered Medications: 13:30 Drug: Ondansetron IVP 4 mg IVP once; over 2 minutes Route: IVP; Site: right antecubital;3 14:35 Follow up: Response: No adverse reaction 3 Disposition: 16:37 Co-signature as Attending Physician, Fahad Sethi MD I agree with the assessment and kdr plan of care. Disposition Summary: 09/09/23 14:33 Discharge Ordered Notes: Location: Home [facility] Problem: new [facility] Symptoms: have worsened [facility] Condition: Stable [facility] Diagnosis - Complete or unspecified spontaneous without complication [facility] Followup: [facility] - With: Private Physician - When: 1 - 2 days - Reason: Recheck today's complaints Discharge Instructions: - Discharge Summary Sheet [facility] - Miscarriage [facility] - Recurrent Loss [facility] Forms: - Medication Reconciliation Form [facility] - Thank You Letter [facility] - Patient Portal Instructions [facility] - Leadership Thank You Letter [facility] Signatures: Dispatcher [employer] Fahad Portillo MD MD kdr Hall, Erin, RN RN 3 Hadash, Kathryn, OPERATIONS AND MAINTENANCE SPECIALIST OPERATIONS AND MAINTENANCE SPECIALIST jh7
--- NOTE | 2023-09-09 14:34 | ER ---
Nurse's Notes [facility] Name: Cely Clancy Age: 27 yrs Sex: Female : 1995 Arrival Date: 09/09/2023 Time: 12:00 Bed 18 Private MD: Diagnosis: Complete or unspecified spontaneous without complication Presentation: 09/09 12:10 Chief complaint: Patient states: 7-8 weeks , vaginal bleeding brown spotting eh3 until this morning a large amount of pinkish brown blood came out. Hx of 4 miscarriages. Coronavirus screen: Vaccine status: Patient reports being unvaccinated. Ebola Screen: No symptoms or risks identified at this time. Initial Sepsis Screen: Does the patient meet any 2 criteria? No. Patient's initial sepsis screen is negative. Does the patient have a suspected source of infection? No. Patient's initial sepsis screen is negative. Risk Assessment: Do you want to hurt yourself or someone else? Patient reports no desire to harm self or others. Onset of symptoms was September 09, 2023. 12:10 Method Of Arrival: Ambulatory [facility] 12:10 Acuity: TOMÁS 3 eh3 Triage Assessment: 12:10 General: Appears in no apparent distress. uncomfortable, Behavior is cooperative, eh3 anxious. Pain: Denies pain. Neuro: Level of Consciousness is awake, alert, obeys commands, Oriented to person, place, time, situation. Cardiovascular: Capillary refill < 3 seconds Patient's skin is warm and dry. Respiratory: Airway is patent Respiratory effort is even, unlabored, Respiratory pattern is regular, symmetrical. GI: Abdomen is round non-distended. : Reports vaginal bleeding that is brown, moderate flow. Derm: Skin is pink, warm \T\ dry. Musculoskeletal: Circulation, motion, and sensation intact. Range of motion: intact in all extremities. 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 - Social history:: Smoking status: Patient denies any tobacco usage or history of. Screenin:10 [facility] ED Fall Risk Assessment (Adult) Score/Fall Risk Level 0 - 2 = Low Risk. Abuse eh3 screen: Denies threats or abuse. Denies injuries from another. Nutritional screening: No deficits noted. Tuberculosis screening: No symptoms or risk factors identified. Assessment: 12:10 Obstetrical Assessment: General assessment: awake and alert, skin warm and dry, eh3 respirations even and unlabored, Patient reports nausea. Reassessment: No changes from previously documented assessment. See triage assessment. 13:00 Reassessment: Pt in ultrasound. 3 13:35 Reassessment: Patient appears in no apparent distress at this time. Patient and/or 3 family updated on plan of care and expected duration. Pain level reassessed. Patient is alert, oriented x 3, equal unlabored respirations, skin warm/dry/pink. Vital Signs: 12:10 BP 114 / 85; Pulse 70; Resp 18; Temp 98.6(O); Pulse Ox 100% ; Weight 54.43 kg; Height 5 eh3 ft. 1 in. ; 13:35 BP 112 / 74; Pulse 105; Resp 18; Pulse Ox 99% on R/A; eh3 12:10 Body Mass Index 22.67 (54.43 kg, 154.94 cm) 3 ED Course: 12:02 Patient arrived in ED. mr 12:02 Kathryn Mary FNP [facility] 12:02 Fahad Sethi MD is Attending Physician. [facility] 12:10 Arm band placed on. 3 12:10 Patient has correct armband on for positive identification. Bed in low position. Call 3 light in reach. Side rails up X2. Provided Education on: Use of call garcia. Pulse ox on. NIBP on. Door closed. Noise minimized. Lights dimmed. Warm blanket given. 12:30 Inserted saline lock: 20 gauge in right antecubital area, using aseptic technique. 3 Blood collected. 12:44 Valentina Cruz, JP is Primary Nurse. 3 12:50 Triage completed. 3 13:26 US Transvaginal Ob In Process Unspecified. EDMS 14:36 No provider procedures requiring assistance completed. IV discontinued, intact, 3 bleeding controlled, No redness/swelling at site. Pressure dressing applied. Administered Medications: 13:30 Drug: Ondansetron IVP 4 mg IVP once; over 2 minutes Route: IVP; Site: right antecubital;[facility] 14:35 Follow up: Response: No adverse reaction 3 Medication: 14:36 VIS not applicable for this client. 3 Outcome: 14:33 Discharge ordered by [facility] 14:41 Discharged to home ambulatory, 3 14:41 Condition: stable 14:41 Discharge instructions given to patient, Instructed on discharge instructions, follow up and referral plans. Demonstrated understanding of instructions, follow-up care, 14:41 Patient left the ED. 3 Signatures: Dispatcher [employer] EDMS Jimena Eduardo, Reg Reg Valentina Arechiga, RN RN 3 Kathryn Mary, ASSOCIATE QUALITY ENGINEER ASSOCIATE QUALITY ENGINEER 7
--- NOTE | 2023-09-09 14:48 | RAD REPORT ---
EXAM DESCRIPTION: US - Transvaginal OB - 09/09/2023 1:24 pm CLINICAL HISTORY: Abd cramping, ;Vaginal bleeding COMPARISON: Transvaginal OB dated 07/30/2022 TECHNIQUE: Sonographic grayscale and color flow images of the pelvis were obtained. FINDINGS: The uterus is normal in size, shape and echotexture. The uterus measures 7.4 cm in length. The endometrial stripe measures 5-6 mm, normal. No gestational sac was visualized. Both ovaries are normal in size, shape and echotexture. The right ovary measures 3.6 x 2.5 x 3.5 cm, and demonstrates normal small peripheral follicles. The left ovary measures 3.1 x 2.9 x 3.3 cm. No suspicious ovarian or parovarian lesions. No adnexal masses. Normal Doppler blood flow was demonstrated to both ovaries. No significant pelvic ascites. IMPRESSION: No gestational sac was visualized. No suspicious adnexal findings to suggest ectopic pre gnancy. Please correlate with serial beta HCG levels, and consider short-term follow-up ultrasound in 3-7 days to re-evaluate for an intrauterine .
== END 2023-09-09 14:41 | disposition home or self-care (01) ==
LOC: ER 12:00
DX: O03.9 Complete or unspecified spontaneous abortion without complication (principal); Z3A.08 8 weeks gestation of pregnancy
CPT/HCPCS: 85025; 81001; 80048; 36415; 86900; 81025; 86901; 84702; 76817; 96374; 99284; J2405

== ENCOUNTER 2023-10-09 13:05 | Emergency (ER) | payer BC, OTHER ==
--- OUTSIDE RECORDS SUMMARY | 2023-10-09 13:12 | XMS REPORT | Continuity of Care Document ---
:1995 Author Organization [facility] t Address [address] [place] [address] Care Team Providers Name Role Phone Linh Davis Primary Care Physician [phone] [email or web address] Attending Clinician Unavailable ARLYN GARBER Attending Clinician Unavailable ARLYN GARBER Attending Clinician Unavailable Arlen Madden RN Attending Clinician Unavailable Pob, [facility] Attending Clinician Unavailable LISSET CALHOUN Attending Clinician Unavailable Doctor Unassigned, [place] Attending Clinician Unavailable Mitchell Acevedo RN Attending Clinician Unavailable Kia Dyson Attending Clinician Lisset Calhoun MD Attending Clinician Roger Dunlap MD Attending Clinician Lorenzo Mcmahan Attending Clinician Unavailable GUANAKITO FOX Attending Clinician Unavailable ALEX MERCHANT Attending Clinician Unavailable Guanakito Fox MD Attending Clinician José Miguel Lowery DO Attending Clinician JOSÉ MIGUEL LOWERY Attending Clinician Unavailable [email or web address] Admitting Clinician Unavailable LISSET CALHOUN Admitting Clinician Unavailable Lisset Calhoun MD Admitting Clinician Leroy Cool Admitting Clinician Unavailable ARLYN GARBER Admitting Clinician Unavailable GUANAKITO FOX Admitting Clinician Unavailable Guanakito Fox MD Admitting Clinician Payers Payer Name Policy Type Policy Number Effective Date Expiration Date S sandy [facility] [id number] 2018 00:00:00 Problems Condition Condition Condition Status Onset Resolution Last Treating Co mments Source Name Details Category Date Date Treatment Clinician Date Missed Missed Disease Active [facility] 9-22 [facility] Abdominal Abdominal Disease Active Uni vers pain pain 9-22 ity of affecting affecting 00:00: [facility] Nausea and Nausea and Disease Active 0 U nivers vomiting vomiting 9-22 ity of during during 00:: 00 [facility] Vaginal Vaginal Disease Active Univers bleeding bleeding 9-20 ity of affecting affecting 00:00: s early early Medical Bran ch Anxiety Anxiety Disease Active Univers 9-20 ity [facility] Vaginal Vaginal Disease Active 0 Univers bleeding bleeding 9-20 ity of in in 00:00: [place] 00 [facility] Iron Iron Disease Active Univers deficiency deficiency 2-01 it y of anemia anemia 00:00: [facility] Disease Active Unive rs delivery delivery 1-25 ity of delivered delivered 00:00: [facility] Disease Active Unive rs delivery delivery 1-25 ity of delivered delivered 00:00: [facility] COVID-19 COVID-19 Disease Active Unive rs virus virus 1-25 it[place] of infection [place] 00[place] Disease Active Univers labor in labor in 1-25 ity of third third 00:00: [place] trimester trimester 00 [facility] with with Branch delivery delivery Encounter Encounter Disease Active 2020-11 Uni vers for tubal for tubal 2-10 ity of ligation ligation 00:00: [place] counseling counseling 00 Wy dical Branch High-risk High-risk Disease Active 2020-11 Uni vers 2-10 ity of in third in third 00:00: [place] trimester trimester 00 [facility] Branch Previous Previous Disease Active 2020-11 Unive rs 2-10 ity of section section 00:00: [place] [facility] History of History of Disease Active 2020-11 U roxana depression depression 2-10 it y of 00:00: [place] [facility] History of History of Disease Active 2020-11 U nivers anxiety anxiety 2-10 ity of 00:00: [place] [facility] Obesity Obesity Disease Active 2020-11 Univers during during 2-09 [place] of [place] Obesity Obesity Disease Active 2020-11 Univers (BMI (BMI 2-09 ity of 30-39.9) 30-39.9) 00:00: [place] [facility] History of History of Disease Active 2020-11 Overview : Univers 0-28 Formattin ity of section section 00:00: g of this [place] 00 note Medical might be Branch different from the original. Formattin g of this note might be different from the original. Desires trial of labor.Raul ared for trial of labor. epsPatien t declines trial of labor now.Prete rm labor. 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 9-10 ity of 00:00: [place] [facility] MTHFR MTHFR Disease Active Univers mutation mutation 9-10 ity of 00:00: [place] [facility] Generalize Generalize Disease Active U nivers d d 4-15 ity of abdominal abdominal 00:00[place] pain pain 00 [place] Contracept Contracept Disease Active U roxana brennon brennon 3-03 ity of management management 00:00[place] [facility] Vaginal Vaginal Disease Active Univers bleeding bleeding 3-03 ity of 00:00: [place] [address] [place] [address] Allergies, Adverse Reactions, Alerts Allergy Allergy Status Severity Reaction(s) Onset Inactive Treating Comm ents Source Name Type Date Date Clinician No Known DA Active [facility] Allergie 9- [place] [facility] NO KNOWN Drug Active Univers ALLERGIE Class ity of S [facility] Social History Social Habit Start Date Stop Date Quantity Comments Source ASSERTION 2021-04-23 University of 00:00:00 [facility] History of tobacco Current smoker Un iversity of use [facility] Sexual orientation Univer sity [facility] Exposure to 2022-08-05 2022-08-15 Not sure University SARS-CoV-2 (event) 00:00:00 10:54:00 [facility] Tobacco use and 2022-08-08 2022-08-08 Smokeless Universit y of exposure 00:00:00 00:00:00 tobacco non-user [facility] Alcohol intake 2022-08-08 2022-08-08 0 /d [facility] 00:00:00 00:00:00 [facility] History of Social 2022-08-08 2022-08-08 Univers ity of function 00:00:00 00:00:00 [facility] Sex Assigned At [birth year] Universit y of 00:00:00 00:00:00 [facility] Smoking Status Start Date Stop Date Source Ex-smoker 2022-08-08 00:00:00 2022-08-08 00:00:[address] [facility] Medications Ordered Filled Start Stop Current Ordering Indication Dosage Frequency Signature Comments Components Source Medication Medication Date Date Medication? Clinician (SIG) Name Name metroNIDAZO 2021-11- No [id number] 500mg Take 1 Univers LE 500 mg 0-17 10-25 tablet by ity of tablet 00:00: 04:59 mouth [place] 00 :00 every 12 Medical ([facility]) Branch hours for 7 days. metroNIDAZO 2021-11- No [id number] 500mg Take 1 Univers LE 500 mg [...] tablet 9-28 ity of 00:00: [place] 00 Medical Branch buPROPion Yes Univers XL 150 mg 9-28 ity of 24 hr 00:00: [place] tablet 00 Medical Branch diazePAM 10 Yes Univer s mg tablet 9-28 ity of 00:00: [place] 00 Medical Branch buPROPion Yes Univers XL 150 mg 9-28 ity of 24 hr 00:00: [place] tablet 00 [facility] ketorolac 2021- No 30mg 30 mg, Unive rs (TORADOL) 08-12 Slow IV ity of injection 00:15: 23:29 Push, [place] 30 mg 00 :00 ONCE, 1 Medical dose, On Branch [facility] 08/11/22 at 1915, Routine ketorolac 2021- No 30mg 30 mg, Unive rs (TORADOL) 08-12 Slow IV ity of injection 00:15: 23:29 Push, [place] 30 mg 00 :00 ONCE, 1 Medical dose, On Branch [facility] 08/11/22 at 1915, Routine morpHINE (4 [...] Starting ity of irrigation 22:28: 02:16 on [facility] [place] solution 00 :19 08/11/22 at Medic al 1728, Branch Until [place] 08/11/22 at 2116, Routine, Intra-op ondansetron 2021- No Slow IV Un gloria (ZOFRAN 08-11 Push, ONCE ity o f (PF)) 22:25: 23:00 INTRA [place] injection 00 :49 PROCEDURE, Medi juany Starting Branch on [facility] 08/11/22 at 1725, Until [place] 08/11/22 at 1800, Routine, Intra-op dexamethaso 2021- No IV [place], U nivers ne 08-11 ONCE INTRA ity of (DECADRON 22:16: 23:00 PROCEDURE, [place] PHOSPHATE) 00 :49 Starting Medic al injection on [facility] Branch 08/11/22 at 1716, Until [facility] 08/11/22 at 1800, Routine, Intra-op doxycycline 2021- No Oral, ONCE Univers hyclate 08-11 INTRA ity of (Vibramycin 22:15: 23:00 PROCEDURE, [place] ) capsule 00 :49 Starting Medica l on [facility] Branch 08/11/22 at 1715, Until [facility] 08/11/22 at 1800, BRIGID, Intra-op rocuronium 2021- No IV Push, Un gloria (ZEMURON) 08-11 ONCE INTRA ity of injection 22:09: 23:00 PROCEDURE, [place] 00 :49 Starting Medical on [facility] Branch 08/11/22 at 1709, Until [facility] 08/11/22 at 1800, Routine, Intra-op propofoL IV 2021- No Intravenou Univers infusion 08-11 s, ONCE ity of 22:09: 23:00 INTRA [place] 00 :49 PROCEDURE, Medical Starting Branch on [facility] 08/11/22 at 1709, Until [place] 08/11/22 at [...] on [place] Branch 08/11/22 at 1703, Until Mon08/26/22 at 1104, Routine, Intra-op lactated 2021- No [...] 1 Medical 20 mg dose, On Branch [facility] 08/11/22 at 1430, BRIGID Yes Take by [facility] vit 9-22 mouth. ity of calc,iron,f 19:16: [address] ( Branch VITAMIN ORAL) Yes Take by [place] vit 9-22 mouth. ity of calc,iron,f 19:16: [address] ( Branch VITAMIN ORAL) Yes Take by [place] vit 9-22 mouth. ity of calc,iron,f 19:16: [address] ( Branch VITAMIN ORAL) Yes Take by [place] vit 9-22 mouth. ity of calc,iron,f 19:16: [place] [address] Medical ( Branch VITAMIN ORAL) Yes Take by [facility] vit 9-22 mouth. ity of calc,iron,f 19:16: [place] [address] Medical ( Branch VITAMIN ORAL) Yes Take by [place] vit 9-22 mouth. ity of calc,iron,f 19:16: [place] [address] Medical ( Branch VITAMIN ORAL) Yes Take by [place] vit 9-22 mouth. ity of calc,iron,f 19:16: [address] ( Branch VITAMIN ORAL) Yes Take by Univer s vit 9-22 mouth. ity of calc,iron,f 19:16: [address] ( Branch VITAMIN ORAL) Yes Take by Univer s vit 9-22 mouth. ity of calc,iron,f 19:16: [address] ( Branch VITAMIN ORAL) Yes Take by Univer s vit 9-22 mouth. ity of calc,iron,f 19:16: [address] ( Branch VITAMIN ORAL) Yes Take by Univer s vit 9-22 mouth. ity of calc,iron,f 19:16: [address] ( Branch VITAMIN ORAL) Yes Take by Univer s vit 9-22 mouth. ity of calc,iron,f 19:16: [address] ( Branch VITAMIN ORAL) Yes Take by Univer s vit 9-22 mouth. ity of calc,iron,f 19:16: [address] ( Branch VITAMIN ORAL) Yes Take by Univer s vit 9-22 mouth. ity of calc,iron,f 19:16: [address] ( Branch VITAMIN ORAL) Yes Take by Univer s vit 9-22 mouth. ity of calc,iron,f 19:16: [address] ( Branch VITAMIN ORAL) NaCl 0.9% 2021- No 1000mL at 999 Uni vers (NS) bolus 08-11 09-22 mL/hr, ity of infusion 17:15: 17:30 1,000 mL, [place] 1,000 mL 00 :00 IV Medical Piggyback, Branch ONCE, 1 dose, On [place] 08/11/22 at 1215, STAT NaCl 0.9% 2021- No 1000mL at 999 Uni vers (NS) bolus - 09-22 mL/hr, ity of infusion 17:15: 17:30 1,000 [...] IV ity of (PHENERGAN) 16:00: 16:09 Piggyback, [place] 12.5 mg in 00 :00 ONCE, 1 Medica l NaCl 0.9% dose, On Branch (NS) 50 mL [place] IV 08/11/22 at piggyback 1100, BRIGID proMETHazin 2021- No 12.5mg 12.5 mg, Univers e 08-11 IV ity of (PHENERGAN) 16:00: 16:09 Piggyback, [place] 12.5 mg in 00 :00 ONCE, 1 Medica l NaCl 0.9% dose, On Branch (NS) 50 mL [place] IV 08/11/22 at piggyback 1100, BRIGID ondansetron 2021-0 2021- No 4mg 4 mg, Slow Univers (ZOFRAN 08-11 IV Push, ity of (PF)) 15:15: 15:11 ONCE, 1 [place] injection 4 00 :00 dose, On Medi juany mg [place] Branch 08/11/22 at 1015, BRIGID ondansetron 2021-0 2021- No 4mg 4 mg, Slow Univers (ZOFRAN 08-11 IV Push, ity of (PF)) 15:15: 15:11 ONCE, 1 [place] injection 4 00 :00 dose, On Medi juany mg [place] Branch 08/11/22 at 1015, BRIGID ibuprofen 2021-0 Yes [id number] 800mg Take 1 Univers 800 mg 08-11 tablet by ity of tablet 00:00: mouth [place] 00 every 6 Medical (six) Branch hours as needed for Alternate with [place] for pain scale 4-6. amoxicillin 2022-0 Yes [id number] 500mg Take 1 Univers -pot 9-22 tablet by ity of clavulanate 00:00: mouth in [place] 500 mg 00 the Medical (AUGMENTIN) morning Branc h 500-125 mg and 1 tablet tablet at noon and 1 tablet in the evening. methylergon 2022-0 Yes [id number] 200ug Take 1 Univers ovine 0.2 9-22 tablet by ity o f mg tablet 00:00: mouth [place] 00 every 6 Medical (six) Branch hours. ibuprofen 2022-0 Yes [id number] 800mg Take 1 Univers 800 mg 9-22 tablet by ity of tablet 00:00: mouth [place] 00 every 6 Medical (six) Branch hours as needed for Alternate with [place] for pain scale 4-6. amoxicillin 2-0 Yes [id number] 500mg Take 1 Univers -pot 9-22 tablet by ity of clavulanate 00:00: mouth in [place] 500 mg 00 the Medical (AUGMENTIN) morning Branc h 500-125 mg and 1 tablet tablet at noon and 1 tablet in the evening. methylergon 2-0 Yes [id number] 200ug Take 1 Univers ovine 0.2 9-22 tablet by ity o f mg tablet 00:00: mouth [place] 00 every 6 Medical (six) Branch hours. ibuprofen 2022-0 Yes [id number] 800mg Take 1 Univers 800 mg 9-22 tablet by ity of tablet 00:00: mouth [place] 00 every 6 Medical (six) Branch hours as needed for Alternate with [place] for pain scale 4-6. amoxicillin 2-0 Yes [id number] 500mg Take 1 Univers -pot 9-22 tablet by ity of clavulanate 00:00: mouth in [place] 500 mg 00 the Medical (AUGMENTIN) morning Branc h 500-125 mg and 1 tablet tablet at noon and 1 tablet in the evening. methylergon 2022-0 Yes [id number] 200ug Take 1 Univers ovine 0.2 9-22 tablet by ity o f mg tablet 00:00: mouth [place] 00 every 6 Medical (six) Branch hours. ibuprofen 2022-0 Yes [id number] 800mg Take 1 Univers 800 mg 9-22 tablet by ity of tablet 00:00: mouth [place] 00 every 6 Medical (six) Branch hours as needed for Alternate with [place] for pain scale 4-6. amoxicillin 2022-0 Yes [id number] 500mg Take 1 Univers -pot 9-22 tablet by ity of clavulanate 00:00: mouth in [place] 500 mg 00 the Medical (AUGMENTIN) morning Branc h 500-125 mg and 1 tablet tablet at noon and 1 tablet in the evening. methylergon 2022-0 Yes [id number] 200ug Take 1 Univers ovine 0.2 9-22 tablet by ity o f mg tablet 00:00: mouth [place] 00 every 6 Medical (six) Branch hours. ibuprofen 2022-0 Yes [id number] 800mg Take 1 Univers 800 mg 9-22 tablet by ity of tablet 00:00: mouth [place] 00 every 6 Medical (six) Branch hours as needed for Alternate with [place] for pain scale 4-6. amoxicillin 2-0 Yes [id number] 500mg Take 1 Univers -pot 9-22 tablet by ity of clavulanate 00:00: mouth in [place] 500 mg 00 the Medical (AUGMENTIN) morning Branc h 500-125 mg and 1 tablet tablet at noon and 1 tablet in the evening. methylergon 2022-0 Yes [id number] 200ug Take 1 Univers ovine 0.2 9-22 tablet by ity o f mg tablet 00:00: mouth [place] 00 every 6 Medical (six) Branch hours. ibuprofen 2022-0 Yes [id number] 800mg Take 1 Univers 800 mg 9-22 tablet by ity of tablet 00:00: mouth [place] 00 every 6 Medical (six) Branch hours as needed for Alternate with [place] for pain scale 4-6. amoxicillin 2022-0 Yes [id number] 500mg Take 1 Univers -pot 9-22 tablet by ity of clavulanate 00:00: mouth in [place] 500 mg 00 the Medical (AUGMENTIN) morning Branc h 500-125 mg and 1 tablet tablet at noon and 1 tablet in the evening. methylergon 2022-0 Yes [id number] 200ug Take 1 Univers ovine 0.2 9-22 tablet by ity o f mg tablet 00:00: mouth [place] 00 every 6 Medical (six) Branch hours. ibuprofen 2022-0 Yes [id number] 800mg Take 1 Univers 800 mg 9-22 tablet by ity of tablet 00:00: mouth [place] 00 every 6 Medical (six) Branch hours as needed for Alternate with [place] for pain scale 4-6. amoxicillin 2022-0 Yes [id number] 500mg Take 1 Univers -pot 9-22 tablet by ity of clavulanate 00:00: mouth in [place] 500 mg 00 the Medical (AUGMENTIN) morning Branc h 500-125 mg and 1 tablet tablet at noon and 1 tablet in the evening. methylergon 2022-0 Yes [id number] 200ug Take 1 Univers ovine 0.2 9-22 tablet by ity o f mg tablet 00:00: mouth [place] 00 every 6 Medical (six) Branch hours. ibuprofen 2022-0 Yes [id number] 800mg Take 1 Univers 800 mg 9-22 tablet by ity of tablet 00:00: mouth [place] 00 every 6 Medical (six) Branch hours as needed for Alternate with [place] for pain scale 4-6. amoxicillin 2-0 Yes [id number] 500mg Take 1 Univers -pot 9-22 tablet by ity of clavulanate 00:00: mouth in [place] 500 mg 00 the Medical (AUGMENTIN) morning Branc h 500-125 mg and 1 tablet tablet at noon and 1 tablet in the evening. methylergon 2022-0 Yes [id number] 200ug Take 1 Univers ovine 0.2 9-22 tablet by ity o f mg tablet 00:00: mouth [place] 00 every 6 Medical (six) Branch hours. ibuprofen 2022-0 Yes [id number] 800mg Take 1 Univers 800 mg 9-22 tablet by ity of tablet 00:00: mouth [place] 00 every 6 Medical (six) Branch hours as needed for Alternate with [place] for pain scale 4-6. amoxicillin 2022-0 Yes [id number] 500mg Take 1 Univers -pot 9-22 tablet by ity of clavulanate 00:00: mouth in [place] 500 mg 00 the Medical (AUGMENTIN) morning Branc h 500-125 mg and 1 tablet tablet at noon and 1 tablet in the evening. methylergon 2022-0 Yes [id number] 200ug Take 1 Univers ovine 0.2 9-22 tablet by ity o f mg tablet 00:00: mouth [place] 00 every 6 Medical (six) Branch hours. ibuprofen 202-0 Yes [id number] 800mg Take 1 Univers 800 mg 9-22 tablet by ity of tablet 00:00: mouth [place] 00 every 6 Medical (six) Branch hours as needed for Alternate with [place] for pain scale 4-6. amoxicillin 2021-0 Yes [id number] 500mg Take 1 Univers -pot 9-22 tablet by ity of clavulanate 00:00: mouth in [place] 500 mg 00 the Medical (AUGMENTIN) morning Branc h 500-125 mg and 1 tablet tablet at noon and 1 tablet in the evening. methylergon 202-0 Yes [id number] 200ug Take 1 Univers ovine 0.2 9-22 tablet by ity o f mg tablet 00:00: mouth [place] 00 every 6 Medical (six) Branch hours. ibuprofen 2021-0 Yes [id number] 800mg Take 1 Univers 800 mg 9-22 tablet by ity of tablet 00:00: mouth [place] 00 every 6 Medical (six) Branch hours as needed for Alternate with [place] for pain scale 4-6. methylergon 2021-0 Yes [id number] 200ug Take 1 Univers ovine 0.2 9-22 tablet by ity o f mg tablet 00:00: mouth [place] 00 every 6 Medical (six) Branch hours. ibuprofen 2021-0 Yes [id number] 800mg Take 1 Univers 800 mg 9-22 tablet by ity of tablet 00:00: mouth [place] 00 every 6 Medical (six) Branch hours as needed for Alternate with [place] for pain scale 4-6. methylergon 2021-0 Yes [id number] 200ug Take 1 Univers ovine 0.2 9-22 tablet by ity o f mg tablet 00:00: mouth [place] 00 every 6 Medical (six) Branch hours. amoxicillin 2021-0 2021- No [id number] 500mg Take 1 Univers -pot 9-22 10-17 tablet by ity of clavulanate 00:00: 00:00 mouth in [place] 500 mg 00 :00 the Medical (AUGMENTIN) morning Branc h 500-125 mg and 1 tablet tablet at noon and 1 tablet in the evening. amoxicillin 2021-0 2021- No [id number] 500mg Take 1 Univers -pot 9-22 10-17 tablet by ity of clavulanate 00:00: 00:00 mouth in [place] 500 mg 00 :00 the Medical (AUGMENTIN) morning Branc h 500-125 mg and 1 tablet tablet at noon and 1 tablet in the evening. HYDROcodone [id number] 1{tbl} Take 1 U nivers -acetaminop 9-22 09-30 tablet by it y of hen 5-325 00:00: 04:59 mouth [place] mg tablet 00 :00 every 6 Medical (six) Branch hours as needed for Pain (scale 7-10) for up to 7 days. Indication s: acute pain HYDROcodone No 47 1{tbl} Take 1 U nivers -acetaminop 9-22 09-30 tablet by it y of hen 5-325 00:00: 04:59 mouth [place] mg tablet 00 :00 every 6 Medical (six) Branch hours as needed for Pain (scale 7-10) for up to 7 days. Indication s: acute pain HYDROcodone 47 1{tbl} Take 1 U nivers -acetaminop 9-22 09-30 tablet by it y of hen 5-325 00:00: 04:59 mouth [place] mg tablet 00 :00 every 6 Medical (six) Branch hours as needed for Pain (scale 7-10) for up to 7 days. Indication s: acute pain HYDROcodone 47 1{tbl} Take 1 U nivers -acetaminop 9-22 09-30 tablet by it y of hen 5-325 00:00: 04:59 mouth [place] mg tablet 00 :00 every 6 Medical (six) Branch hours as needed for Pain (scale 7-10) for up to 7 days. Indication s: acute pain HYDROcodone No 47 1{tbl} Take 1 U nivers -acetaminop 9-22 09-30 tablet by it y of hen 5-325 00:00: 04:59 mouth [place] mg tablet 00 :00 every 6 Medical (six) Branch hours as needed for Pain (scale 7-10) for up to 7 days. Indication s: acute pain HYDROcodone No 47 1{tbl} Take 1 U nivers -acetaminop 9-22 09-30 tablet by it y of hen 5-325 00:00: 04:59 mouth [place] mg tablet 00 :00 every 6 Medical (six) Branch hours as needed for Pain (scale 7-10) for up to 7 days. Indication s: acute pain HYDROcodone 0 2021- No [id number] 1{tbl} Take 1 U nivers -acetaminop -11 08-30 tablet by it y of hen 5-325 00:00: 04:59 mouth [place] mg tablet 00 :00 every 6 Medical (six) Branch hours as needed for Pain (scale 7-10) for up to 7 days. Indication s: acute pain ondansetron 2021-0 Yes [id number] 8mg Take 1 Univers 8 mg 9-21 tablet by ity of disintegrat 00:00: mouth [place] ing tablet 00 every 8 Medica l (eight) Branch hours as needed for Nausea and Vomiting (N/V). ondansetron 2021-0 Yes [id number] 8mg Take 1 Univers 8 mg 9-21 tablet by ity of disintegrat 00:00: mouth [place] ing tablet 00 every 8 Medica l (eight) Branch hours as needed for Nausea and Vomiting (N/V). ondansetron 2021-0 Yes [id number] 8mg Take 1 Univers 8 mg 9-21 tablet by ity of disintegrat 00:00: mouth [place] ing tablet 00 every 8 Medica l (eight) Branch hours as needed for Nausea and Vomiting (N/V). ondansetron 2021-0 Yes [id number] 8mg Take 1 Univers 8 mg 9-21 tablet by ity of disintegrat 00:00: mouth [place] ing tablet 00 every 8 Medica l (eight) Branch hours as needed for Nausea and Vomiting (N/V). ondansetron 2021-0 Yes [id number] 8mg Take 1 Univers 8 mg 9-21 tablet by ity of disintegrat 00:00: mouth [place] ing tablet 00 every 8 Medica l (eight) Branch hours as needed for Nausea and Vomiting (N/V). ondansetron 2021-0 Yes [id number] 8mg Take 1 Univers 8 mg 9-21 tablet by ity of disintegrat 00:00: mouth [place] ing tablet 00 every 8 Medica l (eight) Branch hours as needed for Nausea and Vomiting (N/V). ondansetron 2022-0 Yes [id number] 8mg Take 1 Univers 8 mg 9-21 tablet by ity of disintegrat 00:00: mouth [place] ing tablet 00 every 8 Medica l (eight) Branch hours as needed for Nausea and Vomiting (N/V). ondansetron 2021-0 Yes [id number] 8mg Take 1 Univers 8 mg 9-21 tablet by ity of disintegrat 00:00: mouth [place] ing tablet 00 every 8 Medica l (eight) Branch hours as needed for Nausea and Vomiting (N/V). ondansetron 2021-0 Yes [id number] 8mg Take 1 Univers 8 mg 9-21 tablet by ity of disintegrat 00:00: mouth [place] ing tablet 00 every 8 Medica l (eight) Branch hours as needed for Nausea and Vomiting (N/V). ondansetron 2021-0 Yes [id number] 8mg Take 1 Univers 8 mg 9-21 tablet by ity of disintegrat 00:00: mouth [place] ing tablet 00 every 8 Medica l (eight) Branch hours as needed for Nausea and Vomiting (N/V). ondansetron 2021-0 Yes [id number] 8mg Take 1 Univers 8 mg 9-21 tablet by ity of disintegrat 00:00: mouth [place] ing tablet 00 every 8 Medica l (eight) Branch hours as needed for Nausea and Vomiting (N/V). ondansetron 2021-0 Yes [id number] 8mg Take 1 Univers 8 mg 9-21 tablet by ity of disintegrat 00:00: mouth [place] ing tablet 00 every 8 Medica l (eight) Branch hours as needed for Nausea and Vomiting (N/V). ondansetron 2-0 Yes [id number] 8mg Take 1 Univers 8 mg 9-21 tablet by ity of disintegrat 00:00: mouth [place] ing tablet 00 every 8 Medica l (eight) Branch hours as needed for Nausea and Vomiting (N/V). ondansetron 2021-0 Yes [id number] 8mg Take 1 Univers 8 mg 9-21 tablet by ity of disintegrat 00:00: mouth [place] ing tablet 00 every 8 Medica l (eight) Branch hours as needed for Nausea and Vomiting (N/V). LORazepam 2021-0 Yes TAKE 1 Univer s 0.5 mg 9-21 TABLET BY ity of tablet 00:00: MOUTH [place] 00 EVERY 8 Medical HOURS Branch NEEDED FOR ANXIETY ondansetron Yes [id number] 8mg Take 1 Univers 8 mg 9-21 tablet by ity of disintegrat 00:00: mouth [place] ing tablet 00 every 8 Medica l (eight) Branch hours as needed for Nausea and Vomiting (N/V). LORazepam Yes TAKE 1 Univer s 0.5 mg 9-21 TABLET BY ity of tablet 00:00: MOUTH [place] 00 EVERY 8 Medical HOURS Branch NEEDED FOR ANXIETY Yes Take by [employer] [facility] vit 9-19 mouth. ity of calc,iron,f 11:16: [place] [id number] Medical ( Branch VITAMIN ORAL) Yes Take by [facility] vit 9-19 mouth. ity of calc,iron,f 11:16: [address] ( Branch VITAMIN ORAL) Yes Take by Wandoujia vit 9-19 mouth. ity of calc,iron,f 11:16: [place] [id number] Medical ( Branch VITAMIN ORAL) Yes Take by Intro[employer]er s vit 9-19 mouth. ity of calc,iron,f 11:16: [address] ( Branch VITAMIN ORAL) TRAMADOL-AC No ETAMINOPHN 07-28 37.5-325 00:00: 00 TAKE 1 No TABLET BY 08 MOUTH EVERY 00:00: 8 HOURS FOR 00 UP TO 31 DAYS NEEDED FOR PAIN dextroamphe [facility] 8-18 ity of etamine 20 00:00: [place] mg tablet 00 Medical Branch dextroamphe Yes [facility] s tamine-amph 8-18 ity of etamine 20 00:00: [place] mg tablet 00 Medical Branch dextroamphe Yes [facility] tamine-amph 8-18 ity of etamine 20 00:00: [place] mg tablet 00 Medical Branch dextroamphe Yes [facility] tamine-amph 8-18 ity of etamine 20 00:00: [place] mg tablet 00 Medical Branch dextroamphe Yes [facility] tamine-amph 8-18 ity of etamine 20 00:00: [place] mg tablet 00 Medical Branch dextroamphe 2-0 Yes Univer s tamine-amph 8-18 ity of etamine 20 00:00: [place] mg tablet 00 Medical Branch dextroamphe 2-0 Yes Univer s tamine-amph 8-18 ity of etamine 20 00:00: [place] mg tablet 00 Medical Branch dextroamphe 2-0 Yes Univer s tamine-amph 8-18 ity of etamine 20 00:00: [place] mg tablet 00 Medical Branch dextroamphe 2-0 Yes Univer s tamine-amph 8-18 ity of etamine 20 00:00: [place] mg tablet 00 Medical Branch dextroamphe 2-0 Yes Univer s tamine-amph 8-18 ity of etamine 20 00:00: [place] mg tablet 00 Medical Branch dextroamphe 2-0 Yes Univer s tamine-amph 8-18 ity of etamine 20 00:00: [place] mg tablet 00 Medical Branch dextroamphe 2-0 Yes Univer s tamine-amph 8-18 ity of etamine 20 00:00: [place] mg tablet 00 Medical Branch dextroamphe 2-0 Yes Univer s tamine-amph 8-18 ity of etamine 20 00:00: [place] mg tablet 00 Medical Branch dextroamphe 2-0 Yes Univer s tamine-amph 8-18 ity of etamine 20 00:00: [place] mg tablet 00 Medical Branch dextroamphe 2-0 Yes Univer s tamine-amph 8-18 ity of etamine 20 00:00: [place] mg tablet 00 Medical Branch dextroamphe 2-0 Yes Univer s tamine-amph 8-18 ity of etamine 20 00:00: [place] mg tablet 00 Medical Branch dextroamphe 2-0 Yes Univer s tamine-amph 8-18 ity of etamine 20 00:00: [place] mg tablet 00 Medical Branch dextroamphe 2-0 Yes Univer s tamine-amph 8-18 ity of etamine 20 00:00: [place] mg tablet 00 Medical Branch dextroamphe 2-0 Yes Univer s tamine-amph 8-18 ity of etamine 20 00:00: [place] mg tablet 00 Medical Branch zolpidem 10 2022-0 Yes TAKE 1/2 [place] mg tablet 7-18 TO 1 ity of 00:00: TABLET BY [place] [address] MOUTH [facility] DAILY AT [facility] zolpide 10 Yes TAKE 1/2 [place] mg tablet 7-18 TO 1 ity of 00:00: TABLET BY [place] [address] MOUTH [facility] DAILY AT [facility] 10 Yes TAKE 1/2 [place] mg tablet 7-18 TO 1 ity of 00:00: TABLET BY [place] [address] MOUTH Medical DAILY AT [facility] 10 Yes TAKE 1/2 [place] mg tablet 7-18 TO 1 ity of 00:00: TABLET BY [address] DAILY AT [facility] 10 Yes TAKE 1/2 [place] mg tablet 7-18 TO 1 ity of 00:00: TABLET BY [address] DAILY AT [facility] 10 Yes TAKE 1/2 [place] mg tablet 7-18 TO 1 ity of 00:00: TABLET BY [place] [address] MOUTH [facility] DAILY AT [facility] 10 Yes TAKE 1/2 [place] mg tablet 7-18 TO 1 ity of 00:00: TABLET BY [address] DAILY AT [facility] 10 Yes TAKE 1/2 [place] mg tablet 7-18 TO 1 ity of 00:00: TABLET BY [address] DAILY AT [facility] 10 Yes TAKE 1/2 [place] mg tablet 7-18 TO 1 ity of 00:00: TABLET BY [place] [address] MOUTH [facility] DAILY AT [facility] zolde 10 Yes TAKE 1/2 [place] mg tablet 7-18 TO 1 ity of 00:00: TABLET BY [place] [address] MOUTH [facility] DAILY AT [facility] 10 Yes TAKE 1/2 [place] mg tablet 7-18 TO 1 ity of 00:00: TABLET BY [place] [address] MOUTH Medical DAILY AT [facility] 10 Yes TAKE 1/2 [place] mg tablet 7-18 TO 1 ity of 00:00: TABLET BY [place] 00 MOUTH Medical DAILY AT [facility] zolpidem 10 Yes TAKE 1/2 [place] mg tablet 7-18 TO 1 ity of 00:00: TABLET BY [place] [address] MOUTH Medical DAILY AT [facility] zolpide 10 Yes TAKE 1/2 [place] mg tablet 7-18 TO 1 ity of 00:00: TABLET BY [place] [address] MOUTH Medical DAILY AT [facility] zolpide 10 Yes TAKE 1/2 [place] mg tablet 7-18 TO 1 ity of 00:00: TABLET BY [place] [address] MOUTH Medical DAILY AT [facility] zolpide 10 Yes TAKE 1/2 [place] mg tablet 7-18 TO 1 ity of 00:00: TABLET BY [place] [address] MOUTH Medical DAILY AT [facility] zolpide 10 Yes TAKE 1/2 [place] mg tablet 7-18 TO 1 ity of 00:00: TABLET BY [place] [address] MOUTH Medical DAILY AT [facility] zolpide 10 Yes TAKE 1/2 [place] mg tablet 7-18 TO 1 ity of 00:00: TABLET BY [place] [address] MOUTH Medical DAILY AT [facility] zolpide 10 Yes TAKE 1/2 [place] mg tablet 7-18 TO 1 ity of 00:00: TABLET BY [place] [address] MOUTH Medical DAILY AT [facility] desvenlafax Yes Kelley s ine 7-15 ity of succinate 00:00: [place] 50 mg 24 hr 00 Medical tablet [facility] Yes Univer s ine 7-15 ity of succinate 00:00: [place] 50 mg 24 hr 00 [facility] Univer s ine 7-15 ity of succinate 00:00: [place] 50 mg 24 hr 00 Medical [facility] Kelley s ine 7-15 ity of succinate 00:00: [place] 50 mg 24 hr 00 Medical [facility] Myroner s ine 7-15 ity of succinate 00:00: [place] 50 mg 24 hr 00 Medical tablet [facility] Myroner s ine 7-15 ity of succinate 00:00: [place] 50 mg 24 hr 00 [facility]e 7-[facility] ity of [...] Medical tablet Branch 2020-11 Yes Take by Wandoujia vit 2-09 mouth. ity of calc,iron,f 14:57: [place] olic [address] Medical ( Branch VITAMIN ORAL) 2020-11 Yes Take by IntroFlyer s vit 2-09 mouth. ity of calc,iron,f 14:57: [place] olic [address] Medical ( Branch VITAMIN ORAL) Nitrofurant 2020-11 Yes [id number] 100mg Take 1 Univers oin&Nit. 1-26 capsule by ity o f [place] 00:00: [place] 2 [place] 100 [place] 00 (two) Medical capsule times Branch daily. Nitrofurant 2020-11- No [id number] 100mg Take 1 Univers oin&Nit. 1-26 12-10 [...] 01/29/21 at Branch 0915, STAT ondansetron Yes [id number] 4mg Take 1 Univers 4 mg 3-12 tablet by ity of disintegrat 00:00: mouth [place] ing tablet 00 every 8 Medica l (eight) Branch hours as needed for Nausea and Vomiting (N/V). ondansetron Yes [id number] 4mg Take 1 Univers 4 mg 3-12 tablet by ity of disintegrat 00:00: mouth [place] ing tablet 00 every 8 Medica l (eight) Branch hours as needed for Nausea and Vomiting (N/V). ondansetron Yes [id number] 4mg Take 1 Univers 4 mg 3-12 tablet by ity of disintegrat 00:00: mouth [place] ing tablet 00 every 8 Medica l (eight) Branch hours as needed for Nausea and Vomiting (N/V). ondansetron 2020- No [id number] 4mg Take 1 Univers 4 mg 3-12 12-10 tablet by ity of disintegrat 00:00: 00:00 [place] tablet [place] :00 every 8 Medica l (eight) Branch hours as needed for Nausea and Vomiting (N/V). cephALEXin 2020- No [id number] 500mg Take 1 Univers (KEFLEX) 3-12 03-20 capsule by ity of 500 mg 00:00: 04:59 mouth 3 [place] capsule 00 :00 (three) Medical times Branch daily for 7 days. dicyclomine No [id number] 10mg Take 1 Univers (BENTYL) 10 3-12 03-18 capsule by i ty of mg capsule 00:00: 04:59 mouth [place] 00 :00 every 8 Medical (eight) Branch hours as needed for Abdominal pain for up to 5 days. Immunizations Ordered Filled Date Status Comments Source Immunization Name Immunization Name [facility] 2012-11-20 Completed University of 00:00:00 [facility] TDAP 2012-11-20 Completed University of 00:00:00 [facility] TDAP 2012-11-20 Completed University of 00:00:00 [facility] TDAP 2012-11-20 Completed University of 00:00:00 [facility] TDAP 2012-11-20 Completed University of 00:00:00 [facility] TDAP 2012-11-20 Completed University of 00:00:00 [facility] TDAP 2012-11-20 Completed University of 00:00:00 [facility] TDAP 2012-11-20 Completed University of 00:00:00 [facility] TDAP 2012-11-20 Completed University of 00:00:00 [facility] TDAP 2012-11-20 Completed University of 00:00:00 [facility] TDAP 2012-11-20 Completed University of 00:00:00 [facility] TDAP 2012-11-20 Completed University of 00:00:00 [facility] TDAP 2012-11-20 Completed University of 00:00:00 [facility] TDAP 2012-11-20 Completed University of 00:00:00 [facility] Branch TDAP 2012-11-20 Completed University of 00:00:00 [facility] Branch TDAP 2012-11-20 Completed University of 00:00:00 [facility] Branch TDAP 2012-11-20 Completed University of 00:00:00 [facility] Branch TDAP 2012-11-20 Completed University of 00:00:00 [facility] Branch TDAP 2012-11-20 Completed University of 00:00:00 [facility] Branch TDAP 2012-11-20 Completed University of 00:00:00 [facility] Branch TDAP 2012-11-20 Completed University of 00:00:00 [facility] Branch TDAP 2012-11-20 Completed University of 00:00:00 [facility] Branch DTAP 2002-02-27 Completed University of 00:00:00 [facility] Polio (IPV/OPV) 2002-02-27 Completed Universit y of 00:00:00 [facility] MMR 2002-02-27 Completed University of 00:00:00 [facility] Pneumococcal 7 2002-02-27 Completed University of Conjugate, PCV7 00:00:00 [place] [facility] (Prevnar7) Branch DTAP 2002-02-27 Completed University of 00:00:00 [facility] MMR 2002-02-27 Completed University of 00:00:00 [facility] Branch Pneumococcal 7 2002-02-27 Completed University of Conjugate, PCV7 00:00:00 [place] [facility] (Prevnar7) Branch Polio (IPV/OPV) 2002-02-27 Completed Universit y of 00:00:00 [facility] DTAP 2002-02-27 Completed University of 00:00:00 [facility] Polio (IPV/OPV) 2002-02-27 Completed Universit y of 00:00:00 [facility] MMR 2002-02-27 Completed University of 00:00:00 [facility] Branch Pneumococcal 7 2002-02-27 Completed University of Conjugate, PCV7 00:00:00 [place] [facility] ical (Prevnar7) Branch DTAP 2002-02-27 Completed University of 00:00:00 [facility] MMR 2002-02-27 Completed University of 00:00:00 [facility] Branch Pneumococcal 7 2002-02-27 Completed University of Conjugate, PCV7 00:00:00 [place] [facility] (Prevnar7) Branch Polio (IPV/OPV) 2002-02-27 Completed Universit y of 00:00:00 [facility] DTAP 2002-02-27 Completed University of 00:00:00 [facility] Polio (IPV/OPV) 2002-02-27 Completed Universit y of 00:00:00 [facility] MMR 2002-02-27 Completed University of 00:00:00 [facility] Pneumococcal 7 2002-02-27 Completed University of Conjugate, PCV7 00:00:00 [place] [facility] [facility] (Prevnar7) Branch DTAP 2002-02-27 Completed University of 00:00:00 [facility] MMR 2002-02-27 Completed University of 00:00:00 [facility] Pneumococcal 7 2002-02-27 Completed University of Conjugate, PCV7 00:00:00 [place] [facility] [facility] (Prevnar7) Branch Polio (IPV/OPV) 2002-02-27 Completed Universit y of 00:00:00 [facility] DTAP 2002-02-27 Completed University of 00:00:00 [facility] Polio (IPV/OPV) 2002-02-27 Completed Universit y of 00:00:00 [facility] MMR 2002-02-27 Completed University of 00:00:00 [facility] Pneumococcal 7 2002-02-27 Completed University of Conjugate, PCV7 00:00:00 [place] [facility] (Prevnar7) Branch DTAP 2002-02-27 Completed University of 00:00:00 [facility] MMR 2002-02-27 Completed University of 00:00:00 [facility] Pneumococcal 7 2002-02-27 Completed University of Conjugate, PCV7 00:00:00 [place] [facility] ical (Prevnar7) Branch Polio (IPV/OPV) 2002-02-27 Completed Universit y of 00:00:00 [facility] DTAP 2002-02-27 Completed University of 00:00:00 [facility] Polio (IPV/OPV) 2002-02-27 Completed Universit y of 00:00:00 [facility] MMR 2002-02-27 Completed University of 00:00:00 [facility] Pneumococcal 7 2002-02-27 Completed University of Conjugate, PCV7 00:00:00 [place] [facility] [facility] (Prevnar7) Branch DTAP 2002-02-27 Completed University of 00:00:00 [facility] MMR 2002-02-27 Completed University of 00:00:00 [place] [facility] Pneumococcal 7 2002-02-27 Completed University Conjugate, PCV7 00:00:00 [place] [facility] [facility] (Prevnar7) Branch Polio (IPV/OPV) 2002-02-27 Completed Universit y of 00:00:00 [facility] TDAP Unknown Completed [facility] Vital Signs Vital Name Observation Time Observation Value Comments Source Systolic blood 2022-09-05 20:16:00 116 mm[Hg] Univer sity of pressure [facility] Diastolic blood 2022-09-05 20:16:00 78 mm[Hg] Unive rsity of pressure [facility] Heart rate 2022-09-05 20:16:00 75 /min Universi ty of [facility] Body temperature 2022-09-05 20:16:00 36.67 Blanka Univ ersity of [facility] Respiratory rate 2022-09-05 20:16:00 18 /min Univ ersity of [facility] Body height 2022-09-05 20:16:00 154.9 cm Universi ty of [place] [facility] Body weight 2022-09-05 20:16:00 52.617 kg Universi ty of [place] [facility] BMI 2022-09-05 20:16:00 21.92 kg/m2 Universi ty of [place] [facility] Systolic blood 2022-08-16 21:29:00 117 mm[Hg] Univer sity of pressure [place] [facility] Diastolic blood 2022-08-16 21:29:00 78 mm[Hg] Unive rsity of [facility] Heart rate 2022-08-16 21:29:00 84 /min Universi ty of [place] [facility] Body temperature 2022-08-16 21:29:00 36.94 Blanka Univ ersity of [facility] Branch Respiratory rate 2022-08-16 21:29:00 18 /min Univ ersity of [place] [facility] Body height 2022-08-16 21:29:00 154.9 cm Universi ty of [place] [facility] Body weight 2022-08-16 21:29:00 55.475 kg Universi ty of [place] [facility] BMI 2022-08-16 21:29:00 23.11 kg/m2 Universi ty of [place] [facility] Systolic blood 2022-08-12 20:22:00 115 mm[Hg] Univer sity of pressure [place] [facility] Diastolic blood 2022-08-12 20:22:00 78 mm[Hg] Unive rsity of pressure [place] [facility] Heart rate 2022-08-12 20:22:00 67 /min Universi ty of [place] [facility] Body temperature 2022-08-12 20:22:00 36.78 Blanka Univ ersity of [place] [facility] Body height 2022-08-12 20:22:00 154.9 cm Universi ty of [place] [facility] Body weight 2022-08-12 20:22:00 54.976 kg Universi ty of [place] [facility] BMI 2022-08-12 20:22:00 22.90 kg/m2 Universi ty of [place] [facility] Systolic blood 2022-08-11 23:55:00 114 mm[Hg] Univer sity of pressure [place] [facility] Diastolic blood 2022-08-11 23:55:00 69 mm[Hg] Unive rsity of pressure [place] [facility] Heart rate 2022-08-11 23:55:00 67 /min Universi ty of [place] [facility] Oxygen saturation in 2022-08-11 23:55:00 100 /min University of Arterial blood by [employer] oximetry Branch Respiratory rate 2022-08-11 23:35:00 13 /min Univ ersity of [place] [facility] Body temperature 2022-08-11 23:04:00 36.39 Blanka Univ ersity of [place] [facility] Body height 2022-08-11 14:29:00 154.9 cm Universi ty of [place] [facility] Body weight 2022-08-11 14:29:00 53.615 kg Universi ty of [place] [facility] BMI 2022-08-11 14:29:00 22.33 kg/m2 Universi ty of [place] [facility] Systolic blood 2022-08-11 23:05:00 107 mm[Hg] Univer sity of pressure [place] [facility] Diastolic blood 2022-08-11 23:05:00 65 mm[Hg] Unive rsity of pressure [place] [facility] Heart rate 2022-08-11 23:05:00 88 /min Universi ty of [place] [facility] Oxygen saturation in 2022-08-11 23:05:00 96 /min University of Arterial blood by [employer] juany Pulse oximetry Branch Body temperature 2022-08-11 23:04:00 36.39 Blanka Univ ersity of [place] [facility] Respiratory rate 2022-08-11 21:27:00 16 /min Univ ersity of [place] [facility] Body height 2022-08-11 14:29:00 154.9 cm Universi ty of [place] [facility] Body weight 2022-08-11 14:29:00 53.615 kg Universi ty of [place] [facility] BMI 2022-08-11 14:29:00 22.33 kg/m2 Universi ty of [place] [facility] Systolic blood 2022-08-08 16:18:00 112 mm[Hg] Univer sity of pressure [place] [facility] Diastolic blood 2022-08-08 16:18:00 74 mm[Hg] Unive rsity of pressure [place] [facility] Heart rate 2022-08-08 16:18:00 76 /min Universi ty of [place] [facility] Body temperature 2022-08-08 16:18:00 36.67 Blanka Univ ersity of [place] [facility] Respiratory rate 2022-08-08 16:18:00 16 /min Univ ersity of [place] [facility] Body height 2022-08-08 16:18:00 154.9 cm Universi ty of [place] [facility] Body weight 2022-08-08 16:18:00 54.205 kg Universi ty of [place] [facility] BMI 2022-08-08 16:18:00 22.58 kg/m2 Universi ty of [place] [facility] Oxygen saturation in 2022-08-08 16:18:00 98 /min University Arterial blood by [facility] Pulse oximetry Branch Systolic blood 2021-10-28 20:56:00 113 mm[Hg] Univer sity of pressure [place] [facility] Diastolic blood 2021-10-28 20:56:00 75 mm[Hg] Unive rsity of pressure [place] [facility] Heart rate 2021-10-28 20:56:00 92 /min Universi ty of [place] [facility] Body temperature 2021-10-28 20:56:00 36.83 Blanka Univ ersity of [place] [facility] Respiratory rate 2021-10-28 20:56:00 18 /min Univ ersity of [place] [facility] Body height 2021-10-28 20:56:00 154.9 cm Universi ty of [place] [facility] Body weight 2021-10-28 20:56:00 74.39 kg Universi ty of [place] [facility] BMI 2021-10-28 20:56:00 30.99 kg/m2 Universi ty of [place] [facility] Heart rate 2021-10-15 02:00:00 74 /min Universi ty of [place] [facility] Oxygen saturation in 2021-10-15 02:00:00 99 /min University of Arterial blood by [facility] Pulse oximetry Branch Systolic blood 2021-10-15 01:15:00 111 mm[Hg] Univer sity of pressure [place] [facility] Diastolic blood 2021-10-15 01:15:00 65 mm[Hg] Unive rsity of pressure [place] [facility] Body temperature 2021-10-15 01:15:00 36.78 Blanka [facility] ersity of [place] [facility] Respiratory rate 2021-10-15 01:15:00 18 /min Univ ersity of [place] [facility] Body weight 2021-10-15 00:49:00 68.04 kg Universi ty of [place] [facility] Systolic blood 2021-01-29 15:30:00 119 mm[Hg] Univer sity of pressure [place] [facility] Diastolic blood 2021-01-29 15:30:00 81 mm[Hg] Unive rsity of pressure [place] [facility] Heart rate 2021-01-29 15:30:00 65 /min Universi ty of [place] [facility] Respiratory rate 2021-01-29 15:30:00 17 /min Univ ersity of [place] [facility] Oxygen saturation in 2021-01-29 15:30:00 98 /min University of Arterial blood by [facility] Pulse oximetry Branch Body temperature 2021-01-29 14:10:00 37.06 Blanka Univ ersity of [place] [facility] Body weight 2021-01-29 14:10:00 68.04 kg Universi ty of [place] [facility] Height Measured 2022-07-28 14:31:00 63.00 inches Body Temperature 2022-07-28 14:31:00 98.50 degrees Heart Rate 2022-07-28 14:31:00 77.00 /min Respiratory Rate 2022-07-28 14:31:00 BP Systolic 2022-07-28 14:31:00 106 mm[Hg] BP Diastolic 2022-07-28 14:31:00 74 mm[Hg] Weight Measured 2022-07-28 14:31:00 122.60 pounds Procedures Procedure Date / Time Performing Clinician Source Performed EXTERNAL PROVIDER RECORDS 2022-08-15 05:01:00 Doctor Unassigned, [facility] [place] [facility] US PELVIS LIMITED 2022-08-11 22:51:00 AdumLisset [facility] DILATION AND CURETTAGE 2022-08-11 21:47:00 Adum, Lisset [facility] COVID-19 (ID NOW RAPID 2022-08-11 20:13:00 Juany Burk [facility] TESTING) Medical Branch COVID-19 (ID NOW RAPID 2022-08-11 20:13:00 Juany Burk [facility] TESTING) Medical Branch LAB ONLY COVID 2022-08-11 20:13:00 Juany Burk [facility] INTERPRETATION [facility] US FIRST 2022-08-11 17:58:08 Ashlie [facility] TRIMESTER LESS THAN 14 Medical B ranch WEEKS WITH TRANSVAGINAL US FIRST 2022-08-11 17:58[facility] Medical B ranch WEEKS WITH TRANSVAGINAL ABORH CONFIRMATION (LAB 2022-08-11 16:12:00 Ashlie, [facility] ABORH CONFIRMATION (LAB 2022-08-11 16:12:00 Ashlie [facility] Medical Branch HB ABO GROUPING 2022-08-11 14:48:00 Ashlie [facility] HB ABO GROUPING 2022-08-11 14:48:00 Ashlie [facility] [place] [facility] LIPASE 2022-08-11 14:42:00 Ashlie [facility] MAGNESIUM 2022-08-11 14:42:00 Ashlie [facility] [place] [facility] COMP. METABOLIC PANEL 2022-08-11 14:42:00 Kia Dailey [facility] ([id number]) [facility] TOTAL BETA HCG ASSAY 2022-08-11 14:42:00 Juany Burk [facility] CBC WITH DIFF 2022-08-11 14:42:00 Kia Dailey [facility] o [facility] URINALYSIS 2022-08-11 14:42:00 Juany Burk [facility] LIPASE 2022-08-11 14:42:00 Kia Dailey Kimmy [place] o [facility] MAGNESIUM 2022-08-11 14:42:00 Kia Dailey Kimmy [facility] COMP. METABOLIC PANEL 2022-08-11 14:42:00 Kia Dailey [facility] ([id number]) [facility] TOTAL BETA HCG ASSAY 2022-08-11 14:42:00 Juany Burk [facility] CBC WITH DIFF 2022-08-11 14:42:00 Kia Dailey [facility] o [facility] URINALYSIS 2022-08-11 14:42:00 Juany Burk [facility] CONSENT/REFUSAL FOR 2022-08-11 14:23:47 Doctor Heather [facility] DIAGNOSIS AND TREATMENT [place] [facility] CONSENT/REFUSAL FOR 2022-08-11 14:23:47 Doctor Heather [facility] DIAGNOSIS AND TREATMENT [place] [facility] US FIRST 2022-08-09 19:12:00 Arlyn Garber [facility] TRIMESTER LESS THAN 14 Medical B ranch WEEKS WITH TRANSVAGINAL POCT TEST 2022-08-08 00:00:00 Arlyn Garber [facility] DSU PRE-OP 2021-10-28 06:01:00 Doctor Heather [facility] [place] [facility] POCT URINALYSIS W/O 2021-10-28 00:00:00 Lisset [facility] SPECIFIC GRAVITY [facility] CONSENT/REFUSAL FOR 2021-10-15 00:42:20 Doctor Heather [facility] DIAGNOSIS AND TREATMENT [place] [facility] POCT TEST 2021-01-29 16:14:00 José Miguel [place] [facility] URINALYSIS 2021-01-29 16:11:00 [place], [facility] COMP. METABOLIC PANEL 2021-01-29 14:24:00 José Miguel [place] [facility] ([id number]) [facility] CBC WITH DIFF 2021-01-29 14:24:00 [place] [facility] NOTICE OF PRIVACY 2021-01-29 13:58:25 Doctor Unassigned, [facility] NOTICE OF PRIVACY 2021-01-29 13:58:11 Doctor Unassigned, [facility] Plan of Care Planned Activity Planned Date Details Comments Source Goal Plan of Care Note [code = 41860-1] Goal Plan of Care Note [code = 16381-9] Goal Plan of Care Note [code = 14519-2] Goal Plan of Care Note [code = 69642-8] Goal Plan of Care Note [code = 95168-2] Goal Plan of Care Note [code = 86783-0] Goal Plan of Care Note [code = 14735-3] Encounters Start End Encounter Admission Attending Care Care Encounter Source Date/Time Date/Time Type Type Clinicians Facility Department ID 2023-09-20 2023-09-20 Outpatient GC_GCBZW_Ka PRIV PRIV [id number] [facility] 00:00:00 00:00:00 diyala_S [id number] Medic al 2023-09-19 2023-09-19 Outpatient GC_GCBZW_Ka PRIV PRIV 276 [id number] [facility] 00:00:00 00:00:00 diyala_S [id number] Medic al 2023-08-14 2023-08-14 Outpatient SFA SFA [id number] [facility] 15:26:56 15:26:56 0925 [facility] 2023-07-21 2023-07-21 Outpatient SFA SFA [id number] 023 W[facility] 15:42:22 15:42:22 0901 [facility] 2023-07-13 2023-07-13 Outpatient SFA SFA [id number] 023 W[facility] 15:21:32 15:21:32 0824 [facility] 2023-04-24 2023-04-24 Outpatient SFA SFA [id number] 023 Wai 15:32:18 15:32:18 0605 [facility] 2023-04-20 2023-04-20 Outpatient SFA SFA [id number] 023 W[facility] 17:05:18 17:05:18 0601 F Danny 2023-03-06 2023-03-06 Outpatient R ARLYN GARBER [facility] B [id number] Univers 13:30:00 13:30:[address] [facility] 2022-09-05 2022-09-05 Outpatient R ARLYN GARBER [facility] B [id number] Univers 15:00:00 15:40:[address] [facility] 2022-09-05 2022-09-05 Office Xeniaaraangelmaria de jesus [facility] 1.2.840.114 [id number] Univers 15:00:00 15:40:27 Visit Yvonnekelly CROWLEY 350.1.13.10 it [place] [id number] [facility] [address] 2022-09-03 2022-09-03 Nurse Arlen Madden 1.2.840.114 [id number] Univers 00:00:00 00:00:00 Triage KAYLEE 350.1.13.10 it y of [facility] 4.2.7.2.686 Oscar as [id number] [facility] [address] 2022-08-31 2022-08-31 Construction Driller Barrie, Keo Lab Main [facility] 1.2.8 40.114 [id number] Univers 12:45:00 13:00:00 Visit Viki Arlyn LINCOLN 350.1.13. 10 it[place] [id number] [facility] [address] [facility] 2022-08-31 2022-08-31 Outpatient R XENIAARAANGELYVONNE CARVALHOKELLY [facility] B [id number] Univers 12:45:00 12:45:[address] [facility] 2022-08-31 2022-08-31 Case Viki [facility] 1.2.840.114 [id number] Univers 00:00:00 00:00:00 Management Arlyn CROWLEY 350.1.13.10 [place] [id number] [address] 2022-08-16 2022-08-16 Outpatient R ARLYN [facility] B [id number] Univers 16:30:00 16:59:[address] [facility] 2022-08-16 2022-08-16 Office [facility] 1.2.840.114 [id number] Univers 16:30:00 16:59:16 Visit Arlyn CROWLEY 350.1.13.10 it [place] [id number] [address] 2022-08-15 2022-08-15 Outpatient R [facility] [id number] Univers 14:00:00 14:00:00 ity of [facility] 2022-08-15 2022-08-15 Orders Doctor DAVID 1.2.840.114 [id number] Univers 00:00:00 00:00:00 Only Unassigned, KAYLEE 350.1.13.10 ity of [place] [facility] 4.2.7.2.686 Oscar as [id number] [facility] [address] 2022-08-13 2022-08-13 Nurse DAVID Acevedo 1.2.840.114 [id number] Univers 00:00:00 00:00:00 Triage Mitchell PAGE 350.1.13.10 ity of HOSPITAL 4.2.7.2.686 Oscar as [id number] [facility] [address] 2022-08-12 2022-08-12 Outpatient R ARLYN GARBER [facility] B [id number] Univers 15:15:00 15:59:51 [facility] 2022-08-12 2022-08-12 Routine [facility] 1.2.840.114 [id number] Univers 15:15:00 15:59:51 Arlyn CROWLEY 350.1.13.10 i ty of [place] [id number] [facility] [address] 2022-08-11 2022-08-11 Outpatient X LJ [facility] ARAVIND [id number] Univers 09:31:00 19:05:00 LISSET chow of [facility] 2022-08-11 2022-08-11 Emergency Kia Dailey [facility] 1.2.840. 114 [id number] Univers 09:31:00 19:05:00 Adzulay, Lisset Longoria LATONIA 350.1.13.10 it[place] [id number] [facility] [address] 2022-08-11 2022-08-11 Surgery Lj [facility] 1.2.840.114 [id number] Univers 16:45:00 18:06:00 Lisset Longoria LATONIA 350.1.13.10 it[place] [id number] [facility] [address] 2022-08-11 2022-08-11 Anesthesia Fabi [facility] 1.2.840.114 [id number] Univers 17:03:00 18:00:00 Event Roger TAPIABHAKTI 350.1.13.10 it[place] of [place] [id number] [facility] [address] 2022-08-11 2022-08-11 Telephone Viki [facility] 1.2.840.11 [id number] Univers 00:00:00 00:00:00 Arlyn CROWLEY 350.1.13.10 it y [place] [id number] [facility] [address] 2022-08-10 2022-08-10 Emergency DIEGO BrandonshaneLorenzo [facility] DAMIAN LA00 [id number] [facility] 07:03:00 11:45:00 28 [facility] 2022-08-09 2022-08-09 Outpatient R ARLYN GARBER [facility] B [id number] Univers 13:30:00 23:59:[address] [facility] 2022-08-09 2022-08-09 [facility] 1.2.840.114 [id number] Univers 13:30:00 23:59:00 Encounter Arlyn LATONIA 350.1.13.10 ity of [place] 4.2.7.2.686 [facility] [id number] [facility] [address] 2022-08-09 2022-08-09 Case Viki [facility] 1.2.840.114 [id number] Univers 00:00:00 00:00:00 Management Arlyn CARLINE 350.1.13.10 ity of [place]OM[place]'S 4.2.7.2.686 [facility] [id number] [address] 2022-08-09 2022-08-09 Telephone Viki [facility] 1.2.840.11 [id number] Univers 00:00:00 00:00:00 Arlyn CROWLEY 350.1.13.10 it y of PEDIATRIC 4.2.7.2.686 [facility] [id number] [address] 2022-08-08 2022-08-08 Outpatient R ARLYN GARBER [facility] B [id number] Univers 11:00:00 11:37:[address] [facility] 2022-08-08 2022-08-08 Initial [facility] 1.2.840.114 [id number] Univers 11:00:00 11:37:42 Arlyn CROWLEY 350.1.13.10 i ty of Visit WOMEN'S 4.2.7.2.686 [facility] [id number] [address] 2022-08-08 2022-08-08 [facility] 1.2.840.114 [id number] Univers 00:00:00 00:00:00 Secure Msg Arlyn CROWLEY 350.1.13.10 ity of WOMEN'S 4.2.7.2.686 [facility] HEALTH [id number] [address] 2022-08-05 2022-08-05 Outpatient R ARLYN GARBER [facility] B [id number] Univers 09:30:00 09:30:[address] [facility] 2022-07-28 2022-07-28 Outpatient [id number] ce [id number] 00:00:00 00:00:00 Visit [id number] 2021-11-25 2021-11-25 Outpatient R GUANAKITO FOX [facility] [id number] Univers 16:00:00 16:00:[address] [facility] 2021-11-11 2021-11-11 Outpatient R GUANAKITO FOX [facility] [id number] Univers 15:45:00 15:45:[address] [facility] 2021-11-03 2021-11-03 Outpatient R MAYUR [facility] [id number] Univers 16:40:00 16:40:[address] [facility] 2021-10-28 2021-10-28 Initial Guanakito Fox [facility] 1.2.840.114 [id number] Univers 14:39:23 16:29:30 Lisset Calhoun 350.1.13.10 ity of Visit [place] 4.2.7.2.686 [facility] [id number] Wy dical [facility] [address] [facility] 2021-10-28 2021-10-28 Outpatient R LJ [facility] [id number] Univers 14:30:00 16:29:[address] [facility] 2021-10-28 2021-10-28 Orders Doctor DAVID 1.2.840.114 [id number] Univers 00:00:00 00:00:00 Only Unassigned, KAYLEE 350.1.13.10 ity of [place] [facility] 4.2.7.2.686 Oscar as [id number] [address] 2021-10-14 2021-10-14 Outpatient X GUANAKITO FOX [facility] ARAVIND [id number] Univers 18:50:00 20:22:[address] [facility] 2021-10-14 2021-10-14 Emergency Guanakito Fox [facility] 1.2.840.114 [id number] Univers 18:50:00 20:22:00 Kev LINCOLN 350.1.13.10 i ty of [place] 4.2.7.2.686 [facility] [id number] [facility] [address] 2021-01-29 2021-01-29 Emergency [facility] 1.2.575.883 [id number] Univers 08:04:00 11:39:00 José Miguel Lincoln 350.1.13.10 i ty of [place] 4.2.7.2.686 [facility] [id number] [facility] [address] 2021-01-29 2021-01-29 Emergency X [facility] ERT [id number] Univers 08:04:00 08:04:00 [address]É M[address]UEL chow [facility] Results Test Description Test Time Test Comments Results Result Comments Source ABORH Confirmation (Lab Only) 2022-08-11 17:32:45 Test Item Value Reference Range Interpretation Comme nts ABO & RH (test code = 20) O Positive Pe rformed at [facility] Laboratory Services - [facility] Blood Ndel327 [address]Toll Free: [phone] A No. [id number] [facility] AllianceABORH Confirmation (Lab Only)2022-08-11 17:32:45 Test Item Value Reference Range Interpretation Comments ABO & RH (test code O Positive Performe d at [facility] = 20) Laboratory Serv [facility] Blood Bank[address] [place] [address]Toll Free: [phone] A No. [id number] [facility] AllianceTOTAL BHCG (QUANTITATIVE)2022-08-11 16:07:11 Test Item Value Reference Range Interpretation Comments BETA HCG (test See_Comment [Automated m essage] code = The system ic h 8241726044) generated this result transmit blayne reference range : Non- fe male and male patien ts: <5 mIU/mL. The reference range was not used to interpret this result as normal/abnormal . TRUNG (test code Gestational Age ? ? = TRUNG) ?Range (mIU/mL) 1-10 ?Weeks ?66-82877172-62 Weeks ?97731-72343395-19 Weeks ?0922-77818561-45 Weeks ?1531-624288 Biotin has been reported to cause a negative bias, interpret results relative to patient's use of biotin. [facility] BHCG (QUANTITATIVE)2022-08-11 16:07:11 Test Item Value Reference Range Interpretation Comments BETA HCG (test See_Comment [Automated m essage] code = The system [employer] h 7614604362) generated this result transmit blayne reference range : Non- fe male and male patien ts: <5 mIU/mL. The reference range was not used to interpret this result as normal/abnormal . TRUNG (test code Gestational Age ? ? = TRUNG) ?Range (mIU/mL) 1-10 ?Weeks ?76-91883333-20 Weeks ?81398-23061537-96 Weeks ?9900-62684205-51 Weeks ?1531-138715 Biotin has been reported to cause a negative bias, interpret results relative to patient's use of biotin. [facility] and Screen - ONCE [id number] 15:46:54 Test Item Value Reference Range Interpretation Comments ABO & RH (test code O Positive Performe d at [facility] = 20) Laboratory Serv [facility] Blood [address] [place] [address] Free: [phone] A No. [id number] IAT (test code = Negative Performed a t [facility] 1185) Laboratory [facility] Blood Bank[address] [place], [place] [address]Toll Free: [phone] A No. [id number] [facility] Screen - ONCE [id number] 15:46:54 Test Item Value Reference Range Interpretation Comments ABO & RH (test code O Positive Performe d at [facility] = 20) Laboratory Serv [facility] Blood Bank[address] [place] [place] [address]Yxsb Free: [phone] A No. [id number] IAT (test code = Negative Performed a t [facility] 1185) Laboratory Serv [facility] Blood Bank[address] [place] [address]Ejab Free: [phone] A No. [id number] [facility] AllianceCOMP. METABOLIC PANEL (83609)2022-08-11 15:22:15 Test Item Value Reference Range Interpretation Comments NA (test code = 138 mmol/L 135-145 3449139897) K (test code = 3.8 mmol/L 3.5-5 2318898318) CL (test code = 104 mmol/L 98-108 7340361088) CO2 TOTAL (test code = 23 mmol/L 23-31 3120318204) AGAP (test code = 2-16 8959495901) BUN (test code = 11 mg/dL 7-23 8935160277) GLUCOSE (test code = 109 mg/dL 70-110 9724483262) CREATININE (test code = 0.62 mg/dL 0.5-1.04 5274539804) TOTAL BILI (test code = 1.0 mg/dL 0.1-1.4 8377299613) CALCIUM (test code = 9.6 mg/dL 8.6-10.6 0463905642) T PROTEIN (test code = 6.7 g/dL 6.3-8.2 4525402917) ALBUMIN (test code = 4.4 g/dL 3.5-5 6030614172) ALK PHOS (test code = 37 U/L 34-122 4110412715) ALTv (test code = 80 U/L 5-35 H 1742-6) AST(SGOT) (test code = 98 U/L 13-40 H 8922897285) eGFR (test code = mL/min/1.73m2 3723552966) TRUNG (test code = TRUNG) Association of [...] tests). Lab Interpretation Abnormal (test code = 99632-8) [facility] AllianceMAGNESIUM2022-09-22 15:22:15 Test Item Value Reference Range Interpretation Comments MAGNESIUM (test code = 7501043544) 2.0 mg/dL 1.7-2.4 Lab Interpretation (test code = Normal 50532-0) [facility] AllianceCOMP. METABOLIC PANEL (82270)2022-08-11 15:22:15 Test Item Value Reference Range Interpretation Comments NA (test code = 138 mmol/L 135-145 8726841954) K (test code = 3.8 mmol/L 3.5-5 7011059879) CL (test code = 104 mmol/L 98-108 0015400591) CO2 TOTAL (test code = 23 mmol/L 23-31 8682654932) AGAP (test code = 2-16 4151904255) BUN (test code = 11 mg/dL 7-23 8319278958) GLUCOSE (test code = 109 mg/dL 70-110 4806693907) CREATININE (test code = 0.62 mg/dL 0.5-1.04 0300019069) TOTAL BILI (test code = 1.0 mg/dL 0.1-1.1 6070420555) CALCIUM (test code = 9.6 mg/dL 8.6-10.6 6150023908) T PROTEIN (test code = 6.7 g/dL 6.3-8.2 9405702649) ALBUMIN (test code = 4.4 g/dL 3.5-5 1739909969) ALK PHOS (test code = 37 U/L 34-122 7413805871) ALTv (test code = 80 U/L 5-35 H 1742-6) AST(SGOT) (test code = 98 U/L 13-40 H 7322092860) eGFR (test code = mL/min/1.73m2 3270347705) TRUNG (test code = TRUNG) Association of [...] tests). Lab Interpretation Abnormal (test code = 38690-1) [facility] AllianceMAGNESIUM2022-09-22 15:22:15 Test Item Value Reference Range Interpretation Comments MAGNESIUM (test code = 6378221944) 2.0 mg/dL 1.7-2.4 Lab Interpretation (test code = Normal 26370-8) [facility] AllianceLIPASE2022-09-22 15:21:55 Test Item Value Reference Range Interpretation Comments LIPASE (test code = 8021955159) 51 U/L 0-220 Lab Interpretation (test code = Normal 09029-5) [facility] AllianceLIPASE2022-09-22 15:21:55 Test Item Value Reference Range Interpretation Comments LIPASE (test code = 4179639279) 51 U/L 0-220 Lab Interpretation (test code = Normal 57682-6) [facility] WITH [id number] 15:04:09 Test Item Value Reference Range Interpretation Comments WBC (test code = See_Comment H [Automated 1790-2) message] The sy stem which generated this result transmitted reference range : 4.30 - 11.10 10*3/?L. The reference range was not used to interpret this result as normal/abnormal . RBC (test code = See_Comment [Automated 949-8) message] The sy stem which generated this [...] RDW-SD (test code = 42.2 fL 39-49.9 97995-4) RDW-CV (test code = 13.5 % 12-15.5 788-0) PLT (test code = See_Comment H [Automated 077-3) message] The sy stem which generated this result transmitted reference range : 166 - 358 10*3/ ?L. The reference r brenna was not used to interpret this result as normal/abnormal . MPV (test code = 10.1 fL 9.5-12.9 90037-5) NRBC/100 WBC (test See_Comment [Automat ed code = 8167059432) message] The system which generated this result transmitted reference range : 0.0 - 10.0 /100 WBCs. The refer ence range was not u sed to interpret th is result as normal/abnormal . NRBC x10^3 (test code See_Comment [Auto mated = 3742614030) message] The s ystem which generated this result transmitted reference range : 10*3/?L. The reference range was not used to interpret this result as normal/abnormal . GRAN MAT (NEUT) % 77.4 % (test code = 770-8) IMM GRAN % (test code 0.40 % = 2251480980) LYMPH % (test code = 14.9 % 736-9) MONO % (test code = 6.8 % 5905-5) EOS % (test code = 0.3 % 713-8) BASO % (test code = 0.2 % 706-2) GRAN MAT x10^3(ANC) 8.79 10*3/uL 1.88-7.09 H (test code = 3101523336) IMM GRAN x10^3 (test 0.04 10*3/uL 0-0.06 code = 3653072673) LYMPH x10^3 (test code 1.69 10*3/uL 1.32-3.29 = 731-0) MONO x10^3 (test code 0.77 10*3/uL 0.33-0.92 = 742-7) EOS x10^3 (test code = 0.03 10*3/uL 0.03-0.39 711-2) BASO x10^3 (test code 0.01-0.07 = 704-7) Lab Interpretation Abnormal (test code = 68874-3) [facility] WITH [id number] 15:04:09 Test Item Value Reference Range Interpretation [...] RDW-SD (test code = 42.2 fL 39-49.9 64614-0) RDW-CV (test code = 13.5 % 12-15.5 788-0) PLT (test code = See_Comment H [Automated 777-3) message] The sy stem which generated this result transmitted reference range : 166 - 358 10*3/ ?L. The reference r brenna was not used to interpret this result as normal/abnormal . MPV (test code = 10.1 fL 9.5-12.9 57853-4) NRBC/100 WBC (test See_Comment [Automat ed code = 7815803897) message] The system which generated this result transmitted reference range : 0.0 - 10.0 /100 WBCs. The refer ence range was not u sed to interpret th is result as normal/abnormal . NRBC x10^3 (test code See_Comment [Auto mated = 4485879029) message] The s ystem which generated this result transmitted reference range : 10*3/?L. The reference range was not used to interpret this result as normal/abnormal . GRAN MAT (NEUT) % 77.4 % (test code = 770-8) IMM GRAN % (test code 0.40 % = 8342939143) LYMPH % (test code = 14.9 % 736-9) MONO % (test code = 6.8 % 5905-5) EOS % (test code = 0.3 % 713-8) BASO % (test code = 0.2 % 706-2) GRAN MAT x10^3(ANC) 8.79 10*3/uL 1.88-7.09 H (test code = 3915047825) IMM GRAN x10^3 (test 0.04 10*3/uL 0-0.06 code = 7036642235) LYMPH x10^3 (test code 1.69 10*3/uL 1.32-3.29 = 731-0) MONO x10^3 (test code 0.77 10*3/uL 0.33-0.92 = 742-7) EOS x10^3 (test code = 0.03 10*3/uL 0.03-0.39 711-2) BASO x10^3 (test code 0.01-0.07 = 704-7) Lab Interpretation Abnormal (test code = 89599-0) [facility]- DUP AB/PEL/SC [id number] 09:21:00 [facility] : 1995 Sex: F Name: AISLINN BURK [facility] : 1995 Age/S: 26 / F [address] [place] Unit #: [id number] Loc: [place] [address] Phys: Lorenzo Mcmahan DO Acct: [id number] Dis Date: Status: REG ER PHONE #: [phone] Exam Date: 08/10/2022 0908 FAX #: Reason: PREG, BLEEDING EXAMS: CPT: [id number] DUP AB/PEL/ SC COMP 45640 History: pain/bleeding Comparison: None at this time [...] 1 Signed Report (CONTINUED) Name: AISLINN BURK [place] : 1995 Age/S: 26 /F [address] [place] Unit #: [id number] Loc: [place] [address] Phys: Lorenzo Mcmahan DO Acct: [id number] Dis Date: Status: REG ER PHONE #: [phone] Exam Date: 08/10/2022 0908 FAX #: Reason: PREG, BLEEDING EXAMS: CPT: [id number] DUP AB/PEL/SC COMP 49854 (Continued) CC: Leroy Cool MD; Lorenzo Payton Technologist: Hallie Garcia [facility] Date/Time: 08/10/2022 (09) Veronica PAGE 2 Signed Report Name: AISLINN BURK [place] : 1995 Age/S: 26 / F [address] [place] Unit #: [id number] Loc: [place] [address] Phys: Lorenzo Mcmahan DO Acct: [id number] Dis Date: Status: REG ER PHONE #: [phone] Exam Date: 08/10/2022 0908 FAX #: Reason: PREG, BLEEDING EXAMS: CPT: [id number] DUP AB/PEL/SC COMP 29726 (Continued) Orig Print D/T: S: 08/10/2022 (0925) Probe: PAGE 3 Signed Report- US PREG 1ST TRIMTR 2022-08-10 09:21:00 [facility] : 1995 Sex: F Name: AISILNN BURK [facility] : 1995 Age/S: 26 / F [address] [place] Unit #: [id number]: Yolie Smith [address] Phys: Lorenzo Mcmahan DO Acct: [id number] Dis Date: Status: REG ER PHONE #: [phone] Exam Date: 08/10/2022 0907 FAX #: Reason: pain/bleeding EXAMS: CPT: [id number] US PREG 1ST TRIMTR 04730 History: pain/bleeding Comparison: None at this time Location: 5 Transabdominal and end ovaginal sonography of the pelvis was performed. A [...] 1 Signed Report (CONTINUED) Name: AISLINN BURK [place] : 1995 Age/S: 26 / Q32289 [place] Unit #: [id number] Loc: [place] [address] Phys: Lorenzo Mcmahan DO Acct: [id number] Dis Date: Status: REG ER PHONE #: [phone] Exam Date: 08/10/2022906 FAX #: Reason: pain/bleeding EXAMS: CPT: [id number] US PREG 1ST TRIMTR 77200 (Continued) CC: Lorenzo Mcmahan DO Technologist: Hallie Garcia [facility] Date/Time: 08/10/2022 (920) Veronica PAGE 2 Signed Report Name: AISLINN BURK [place] : 1995 Age/S: 26 / F [address] [place] Unit #: [id number] Loc: [place] [address] Phys: Lorenzo Mcmahan DO Acct: [id number] Dis Date: Status: REG ER PHONE #: [phone] Exam Date: 08/10/2022 09 FAX #: Reason: pain/bleeding EXAMS: CPT: [id number] US PREG 1ST TRIMTR 93535 (Continued) Orig Print D/T: S: 08/10/2022 (924) Probe: PAGE 3 Signed Report- US TRANSVAGINAL NON [id number] 09:21:00 [facility] : 1995 Sex: F Name: AISLINN BURK [facility] : 1995 Age/S: 26 / F [address] [place] Unit #: [id number]: Yolie Smith [address] Phys: Lorenzo Mcmahan DO Acct: [id number] Dis Date: Status: REG ER PHONE #: [phone] Exam Date: 08/10/2022907 FAX #: Reason: pain/bleeding EXAMS: CPT: [id number] [place] [address] History: pain/bleeding Comparison: None at this time Location: [facility] Transabdominal and endovaginal sonography of the [...] 1 Signed Report (CONTINUED) Name: AISLINN BURK [facility] : 1995 Age/S: 26 / F [id number] [place] Unit #: [id number] Loc: [place] [address] Phys: Lorenzo Mcmahan DO Acct: [id number] Dis Date: Status: REG ER PHONE #: [phone] Exam Date: 08/10/2022 0908 FAX #: Reason: pain/bleeding EXAMS: CPT: [id number] [place] [address] (Continued) CC: Lorenzo Mcmahan DO Technologist: Hallie Garcia Trnscb Date/Time: 08/10/2022 (920) IfrahPMT PAGE 2 Signed Report Name: AISLINN BURK [place] : 1995 Age/S: 26 / F [id number] [address] [place] Unit #: [id number] Loc: [place] [address] Phys: Lorenzo Mcmahan DO Acct: [id number] Dis Date: Status: REG ER PHONE #: [phone] Exam Date: 08/10/2022 0908 FAX #: Reason: pain/bleeding EXAMS: CPT: [id number] [place] [address] (Continued) Orig Print D/T: S: 08/10/2022 (09) Probe: [id number] PAGE 3 Signed ReportHCG [id number] 08:39:00 Test Item Value Reference Range Interpretation Comments HCG SERUM (test 74498 mi-IU/ML 0-6 H 0 - 6 NOT > 6 code = HCG) SUGGESTIVE OF E KATIE RISES TWO FOLD EVERY 2 DA YS; SUGGEST RECONFI RMING AFTER 2 DAYS. 150,000-200,[address] TRIMESTER 10,00 0 - 50,000 2ND & 3R D TRIMESTER UA RFLX MICR CULT IF [id number] 08:26:00 Test Item Value Reference Range Interpretation [...] code = AMORU) Indication for culture: RiskForSepsis-no [facility] srcBASIC METABOLIC [id number] 08:10:00 Test Item Value Reference Range Interpretation [...] CA) 10.0 MG/DL 8.5-10.1 N HEPATIC FUNCTION [id number] 08:10:00 Test Item Value Reference Range Interpretation [...] 34 Unit/L 45-117 L code = ALKP) [id number] 08:10:00 Test Item Value Reference Range Interpretation Comments LIPASE (test code = LIP) 29 Unit/L 114-286 L CBC W/AUTO [id number] 07:59:00 Test Item Value Reference Range Interpretation [...] code NO DIFF/SCN CRITERIA = MDIFF) POCT [id number] 16:30:00 Test Item Value Reference Range Interpretation Comments POCT PREG (test code = 1605) Positive On board controls acceptable with C Yes Line (test code = 3574) POCT PREG LOT # (test code = 3575) POCT PREG TEST DATE (test code = 3576) [facility], [id number] 09:51:52SPECIMEN NUMBER: [id number] CULTURE, URINE SPECIMEN NUMBER: [id number] SPECIMEN COMMENT: URINE SOURCE:URINE REPORT STATUS: FINAL FINAL REPORT: 07/30/2022 10-50,000 CFU/ML UROGENITAL YANNI PRESENT NO COMMON PATHOGENSCBC W/AUTO DIFF WITH [id number] 08:02:01 Test Item Value Reference Range Interpretation [...] RBCS 0.00 K/UL 0.00-0.11 (test code = 02244) HCG, [id number] 06:09:47 Test Item Value Reference Range Interpretation Comments HCG, QUANTITATIVE 51629 MIU/ML SEE BELOW E XPECTED (test code = 2506) VALUES FO R HCG GST.AGE UNITS RANGE GST. AGE UNITS RANGE3 WEEKS [place] U/ML 6-71 10 WEEKS M IU/ML [id number] [...] . . . . . . MIU/ML 3-3JMCM-MSIEENW REEMA FEMALES . . . . . . . . . . . . MIU/M L <=7 UNLESS OTHERWIS E INDICATED, ALL TESTING PERFORM ED ATCLINICAL PATH OLOGY [facility]. [address] [place] [id number] [place] [address] DIRECTOR: SHIRA SUE M.D. [place] NUMBER [id number] CAP ACCREDITATION N O. [id number] POCT URINALYSIS W/O SPECIFIC [id number] 21:04:00 Test Item Value Reference Range Interpretation [...] code = 3257) N/A Negative - Negative [facility]IN[facility]2021-03-12 16:50:35 Test Item Value Reference Range Interpretation Comments APPEARANCE (test code = Hazy Clear A 8291715423) COLOR (test code = Yellow Yellow 2048987397) PH (test code = 4.8-8.0 0123738782) SP GRAVITY (test code = 1.003-1.030 5962574290) GLU U QUAL (test code = Normal Normal 3866207499) BLOOD (test code = Negative Negative 9059103176) KETONES (test code = 20 mg/dL Negative A 8605854503) PROTEIN (test code = Negative Negative 2887-8) UROBILIN (test code = 2.0 mg/dL Normal A 6080509988) BILIRUBIN (test code = Negative Negative 2405888104) NITRITE (test code = Negative Negative 4789393578) LEUK KASHMIR (test code = 25/uL Negative A 5608987927) RBC/HPF (test code = See_Comment [Autom ated message] 0782916731) The system Triangulate generated this result transmit blayne reference range : 0 - 3 HPF. The refe rence range was not u sed to interpret th is result as normal/abnormal . WBC/HPF (test code = See_Comment H [Autom ated message] 4513656338) The system [employer]ang[employer] generated this result transmit blayne reference range : 0 - 5 HPF. The refe rence range was not u sed to interpret th is result as normal/abnormal . BACTERIA (test code = Moderate Negative A 7454743770) MUCOUS (test code = Marked Negative LPF A 7881286453) SQ EPITH (test code = HPF 8034813176) Lab Interpretation (test Abnormal code = 70022-6) [facility] [id number] 16:14:00 Test Item Value Reference Range Interpretation Comments POCT PREG (test code = 1605) negative On board controls acceptable with present C Line (test code = 3574) POCT PREG LOT # (test code = 3575) [id number] POCT PREG TEST DATE (test 2022-09-19 code = 3576) Lab Interpretation (test code = Normal 89943-4) [facility] Alliance[facility]. METABOLIC PANEL (17794)2021-01-29 15:11:52 Test Item Value Reference Range Interpretation Comments NA (test code = 143 mmol/L 135-145 7357083810) K (test code = 3.2 mmol/L 3.5-5.0 L 1580245282) CL (test code = 102 mmol/L 98-108 5227605627) CO2 TOTAL (test code = 30 mmol/L 23-31 7021956188) AGAP (test code = 2-16 7705472719) BUN (test code = 15 mg/dL 7-23 0420007921) GLUCOSE (test code = 106 mg/dL 70-110 9157345919) CREATININE (test code = 0.81 mg/dL 0.50-1.04 0982640079) TOTAL BILI (test code = 0.9 mg/dL 0.1-1.5 0901765228) CALCIUM (test code = 9.6 mg/dL 8.6-10.6 6696729027) T PROTEIN (test code = 7.4 g/dL 6.3-8.2 0980301370) ALBUMIN (test code = 4.7 g/dL 3.5-5.0 1971682417) ALK PHOS (test code = 37 U/L 34-122 5330347478) ALTv (test code = 39 U/L 5-35 H 1742-6) AST(SGOT) (test code = 75 U/L 13-40 H 5164689676) eGFR Calculation mL/min/1.73m2 (Non-) (test code = 4705359065) eGFR Calculation mL/min/1.73m2 () (test code = 3318167871) TRUNG (test code = TRUNG) Association of [...] tests). Lab Interpretation Abnormal (test code = 10679-1) [facility] WITH [id number] 14:36:28 Test Item Value Reference Range Interpretation Comments WBC (test code = See_Comment [Automated message] 2690-2) The system Triangulate generated this result transmitted ref erence range: 4.30 - 1 1.10 10*3/?L. The re ference range was not u sed to interpret this result as normal/abnor mal. RBC (test code = See_Comment [Automated message] 699-8) The system Triang[employer] generated this result transmitted ref erence range: [...] RDW-SD (test code 39.2 fL 39.0-49.9 = 35212-4) RDW-CV (test code 12.9 % 12.0-15.5 = 788-0) PLT (test code = See_Comment [Automated message] 777-3) The system [employer]ang[employer] generated this result transmitted ref erence range: 166 - 35 8 10*3/?L. The re ference range was not u sed to interpret this result as normal/abnor mal. MPV (test code = 10.5 fL 9.5-12.9 81347-8) NRBC/100 WBC (test See_Comment [Automat ed message] code = 1952642337) The syste m which generated this result transmitted ref erence range: 0.0 - 10 .0 /100 WBCs. The refer ence range was not u sed to interpret this result as normal/abnor mal. NRBC x10^3 (test <0.01 See_Comment [Automated message] code = 1579399502) The syste m which generated this result transmitted ref erence range: 10*3/?L. The reference range was not used to interpr et this result as normal/abnormal . GRAN MAT (NEUT) % 71.8 % (test code = 770-8) IMM GRAN % (test 0.40 % code = 2638662671) LYMPH % (test code 18.5 % = 736-9) MONO % (test code 7.8 % = 5905-5) EOS % (test code = 1.2 % 713-8) BASO % (test code 0.3 % = 706-2) GRAN MAT 6.81 10*3/uL 1.88-7.09 x10^3(ANC) (test code = 4755223370) IMM GRAN x10^3 0.04 10*3/uL 0.00-0.06 (test code = 7686521637) LYMPH x10^3 (test 1.76 10*3/uL 1.32-3.29 code = 731-0) MONO x10^3 (test 0.74 10*3/uL 0.33-0.92 code = 742-7) EOS x10^3 (test 0.11 10*3/uL 0.03-0.39 code = 711-2) BASO x10^3 (test 0.03 10*3/uL 0.01-0.07 code = 704-7) [facility] AllianceSARS-CoV-2 (COVID-19) by RT-PCR (HIGH RISK) 2021-01-26 00:00:00 Test Item Value Reference Range Interpretation Comments SARS-CoV-2 INTERPRETATION NEGATIVE (test code = 24596) SOURCE (test code = 66883) NASOPHARYNGEAL SARS-CoV-2 (COVID-19) by RT-PCR (HIGH RISK)2021-01-26 00:00:00 Test Item Value Reference Range Interpretation Comments SARS-CoV-2 INTERPRETATION NEGATIVE (test code = 63910) SOURCE (test code = 86570) NASOPHARYNGEAL Notes Date/Time Note Provider Source 2022-08-10 07:26:00 [id number]:26:00 [facility] ([facility])EMERGENCY PROVIDER REPORTREPORT#:[id number] REPORT STATUS: SignedDATE:08/10/22 TIME:725 PATIENT: AISLINN BURK UNIT #: [id number]#: [id number] ROOM/BED:: 97 AGE: 26 SEX: F PCP PHYS: Leroy Cool AUTHOR: Lorenzo Mcmahan DO * ALL edits or amendments must be made on the electronic/computer document * HPI-Abd Pain F Under 40 GeneralConfirmed Patient YesInitial Greet Date/Time 08/10/22706 PresentationChief Complaint Abdominal pain, Nausea, Pelvic pain, , 1st trimester, # weeks (6 weeks. LMP June 09)Hx Obtained From Patient, Family (mother)Sudden in Onset? NoOnset Occurred Weeks ago (2)Symptom Duration Since onsetProgression since Onset Gradually worseningCaused by No trauma by historyLocation Abdomen lowerQuality PainfulRadiationDoes not radiate. Migration/Movement NoneSeverity: Onset ModerateSeverity: Current ModerateAssociated withReports: Nausea, Vaginal bleeding, Vomiting. Denies: Anorexia, Back pain, Chestpain, Chills, Constipation, Diarrhea, Dysuria, Fever, Hematemesis, Hematochezia,Hematuria, Melena, Shortness of breath, Urinary frequency, Urinary retention, Urinary tract symptoms, Vaginal discharge. Exacerbated by NothingRelieved by Nothing Free Text HPI NotesFree Text HPI [id number] -states she is currently with twins and one of them is nonviable. States she was told that half of her uterus was filled with hemorrhage. Has hadabdominal pain, vaginal bleeding, nausea and vomiting for the past 2 weeks. States her [facility]. Risk-Abd Pain F Under 40)( Ectopic Risk factors reviewed Review of System s ROS StatementsComplete sys rev neg except as marked. Focused Review of SystemsConstitutionalDenies: Chills, Fever, Lethargy. RespiratoryDenies: Cough, non-productive, Cough, productive, Shortness of breath. CardiovascularDenies: Chest pain, Syncope. GIReports: Abdominal pain, Nausea, Vomiting. Denies: Diarrhea. FemaleReports: , Vaginal bleeding - abnl. Denies: Dysuria, Flank pain, Pelvicpain. MusculoskeletalDenies: Back pain, Extremity pain . Past Medical History - AdultStated Complaint NAUSEA, VOMITING, BLEEDING 2 WEEKS, HX MISCAllergiesCoded Allergies:No Known Allergies (08/10/22) Pt reports no significant: Past medical historyPast Surgical History:Reports: Cholecystectomy. Physical Exam Vital SignsVital SignsFirst Documented: Result Date Time Pulse O x 100 08/10 07 B/P 122/73 08/10 0720 B/P Mean 89 08/10 0720 O2 Delivery Room air 08/10 0720 Temp 97.6 08/10 0720 Pulse 55 08/10 0720 Resp 17 07/22 1 0720 Last Documented: Result Date Time Pulse Ox 99 08/10 1145 B/P 108/62 08/10 1145 B/P Mean 77 08/10 1145 O2 Delivery Room air 08/10 1145 Temp 98.0 08/10 1145 Pulse 95 08/10 1145 Resp 18 07/22 1 1145 Review of Vital Signs Reviewed Focused PEGeneral/Const General/Const Awake, Alert, Well appearingMS Head Head NormocephalicEyes Eye s PERRLEars/Nose/Throat Ears/Nose/Throat Airway patent, Mucous membranes moist, Pharynx NLResp/Chest Respiratory/Chest Breath sounds NL, Breath sounds = bilat, No respiratory distress, No rales, No rhonchi, No wheezingCardiovascular Cardiovascular Heart rate NL, Regular rhythm, Heart sounds NL, Peripheral circulation NLAbdomen/GI Abdomen/G I Soft, Non-tender, McBurney's non-tender, No guarding, No rebound, BS normoactive, No distention, No hernia, No palpable massMS Back * * Back Inspection NL, Non-tender, No CVA tendernessSkin Skin Color NL, Warm, Dry, Turgor NLGenitourinary General Dicer Operator present Female Genitourinary Atraumatic, External genitalia NL, No uterine mass, No lesions or rash Text/Dict NotesCervix open. No obstruction. Very small amount of blood present in the vagina. No other products of conception reviewed.Neurologic Neurologic Oriented X3, Speech NL, No motor deficits, No sensory deficits Additional PEMS Upper Extrem Upper Extremity/MS Atraumatic, Inspection NLMS Wrist/Hand Wrist/Hand Atraumatic , Inspection NL Interpretation Diagnostics Lab Results InterpretationResultsLaboratory Tests 08/10/22730:[Embedded Image Not Available]Laboratory Tests: 08/10 731 Chemistr y Sodium (134 - 147 mmol/L) 137 Potassium (3.4 - 5.0 mmol/L) 4.1 Chloride (100 - 108 mmol/L) 106 Carbon Dioxide (21 - 32 mmol/L) 21 Anion Gap (4. 0 - 15.0 GAP calc) 10.0 BUN (7 - 18 MG/DL) 13 Creatinine (0.6 - 1.0 MG/DL) 0.8 Glomerular Filt r Rate (>60 estGFR) >=60 max estimate Glucose (70 - 110 MG/DL) 183 H [...] G/DL) 7.6 Albumin (3.4 - 5.0 G/DL) 3. 9 Lipase (114 - 286 Unit/L) 29 L Hematology WBC (3.5 - 11.0 K/mm3) 16.4 H RBC (4.70 - 6.10 M/mm3 ) 4.26 L Hgb (10.4 - 14.9 G/DL) 12.7 Hct (31.5 - 44.1 %) 36.9 MCV (84.5 - 98.6 Fl) 86.6 MCH (27. 0 - 34.2 pg) 29.8 MCHC (31.5 - 34.0 G/DL) 34.4 H RDW (11.5 - 14.5 SD) 13.5 Plt Count (150 - 450 K/mm3) 352 MPV (7.0 - 10.5 fL) 10.10 Neut % (Auto) (40 - 76 %) 94.6 H Lymph % (Auto) (20.5 - 51.1 %) 3.9 L [place] % (Auto) (1.7 - 9.3 %) 1.0 L Eos % (Auto) (0.0 - 6.0 %) 0.0 Baso % (Auto) (0. 0 - 2.0 %) 0.1 Neut # (Auto) (1.8 - 7.6 K/mm3) 15. 5 H Lymph # (Auto) (0.6 - 3.2 K/mm3) 0.6 [place] # (Auto) (0.3 - 1.1 K/mm3) 0.2 L Eos # (Auto) (0.0 - 0.4 K/mm3) 0.0 Baso # (Auto) (0.0 - 0.1 K/mm3) 0.0 Abs Immat Gran (auto) (0.00 - 0.03 x10 3/uL) 0.06 H Add Manual Diff (CRITERIA DIFF/SCN) NO Immature Gran % (0.0 - 5.0 %) 0.4 Nucleated RBC % (0.0 - 1.0 /100WBC%) 0.0 Miscellaneous Maternal Serum HCG (0 - 6 mi-IU/ML) 08613 H Urines Urine Color (YEL/STRAW discript) STRAW Urine Appearanc e (CLEAR discript) TURBID H Urine pH (5.0 - 7.0 pH UNITS) 6.0 Ur Specific [place] (1.005 - 1.030 SG ) >=1.030 H Urine Protein (NEG mg/dL) 1+ H Urine Glucose (UA) (NEG mg/dL) NEGATIVE Urine Ketones (NEG mg/dL) 3+ H Urine Blood (NEG mg/DL) 3+ H Urine Nitrite (NEG SCREEN) NEGATIVE Urine Bilirubin (NEG mg/dL) NEGATIVE Urine Urobilinogen (<2.0 mg/dL) 0.2 Ur Leukocyte Esterase (NEGATIVE Leuk/mcL) NEGATIVE Urine RBC (0 - 3 #RBC/HPF) 0-1 Urine WBC (0 - 3 #WBC/HPF) 0-1 Ur Squamous Epith Cells (NONE /HPF) TRACE Amorphous Sediment (NONE SEEN) 1+ H Urine Culture Screen (Culture CHK Criteria) NO, WBC<10 Recent Impressions:ULTRASOUND - US TRANSVAGINAL NON OB 08/10 800 Report Impression - Status: SIGNED Entered: 08/10/2022924 IMPRESSION: A single intrauterine is identified. However, no fetalheartbeat can be identified. According to ultrasound size criteria,the estimated gestational age would be approximately 8 weeks 1 day.These findings are suspicious for intrauterine demise. There is a subchorionic hemorrhage. Impression By: Pierce Talavera M.D.ULTRASOUND - US PREG 1ST TRIMTR 08/10 800 Report Impression - Status: SIGNED Entered: 08/10/2022924 IMPRESSION: A single intrauterine is identified. However, no fetalheartbeat can be identified. According to ultrasound size criteria,the estimated gestational age would be approximately 8 weeks 1 day.These findings are suspicious for intrauterine demise. There is a subchorionic hemorrhage. Impression By: IfrahPM Damon Talavera M.D.ULTRASOUND - DUP AB/PEL/SC COMP 08/10 849 Report Impression - Status: SIGNED Entered: 08/10/2022924 IMPRESSION: A single intrauterine is identified. However, no fetalheartbeat can be identified. According to ultrasound size criteria,the estimated gestational age would be approximately 8 weeks 1 day.These findings are suspicious for intrauterine demise. There is a subchorionic hemorrhage. Impression By: Veronica Talavera M.D. Re-Evaluation MDM )( Re-Evaluation/Progress #1Text/Dict NotePatient states that her nausea and pain was resolved after Zofran she was able to sleep however symptoms have since returned. Additional Zofran ordered. Mother bedside. Discussed test results in detail. Patient now clarifies that sh ernesto had an ultrasound performed yesterday and was told that she might have to pregnancies or that she may just have 1 and a large subchorionic hemorrhage. Patient has follow-up with [employer] [employer].Time of Re-Eval 1005)( Re-Eval Statu s Improved Re-Evaluation/Progress #2Text/Dict NotePain improved. Nausea improved. Mother bedside. No additional complaints. Patient requesting medicine for anxiety. States she has a history of anxiety and that her miscarriage is exacerbating this. Time of Eval 1130Re-Eval Status Improved ED CourseMedication(s) OrderedMedication(s) Ordered:Gastrointestinal Drugs Sig/Jama Start time Last Medication Dose Route Stop Time Status Admin Ondansetron HCl 4 M G X1ED STA 08/10 1016 DC 08/10 IV 08/10 1017 1020 Patient Discharge Departure Vital Signs/ConditionVital SignsFirst Documented: Result Date Time Pulse Ox 100 08/10 0720 B/P 122/73 08/10 0720 B/P Mean 89 08/10 0720 O2 Delivery Room air 08/10 0720 Temp 97.6 08/10 072 0 Pulse 55 08/10 0720 Resp 17 08/10 0720 Last Documented: Result Date Time Pulse Ox 99 08/10 1145 B/P 108/62 08/10 1145 B/P Mean 77 08/10 114 5 O2 Delivery Room air 08/10 1145 Temp 98.0 08/10 1145 Pulse 95 08/10 1145 Resp 18 08/10 1145 All vital signs available at the time of this entry have been reviewed. Clinical ImpressionClinical ImpressionPrimary Impression: Spontaneous miscarriage Disposition DecisionDischarge )( Discharged to Home Yes )( Time 1137 )( Date 08/10/22 Discharge/Care PlanCounseled Regarding Diagnosis, Lab results, Imaging studies, Prescriptions, Needfor follow-up, When to return to ED(Auto) PrescriptionsCurrent Visit ScriptsLORazepam (ATIVAN) 0.5 MG PO Q8H PRN PRN ANXIETY LORazepam (ATIVAN) 0.5 MG PO Q8H PRN PRN ANXIETY #15 TABS ONDANSETRON ODT (ZOFRAN ODT) 4 MG PO Q6H PRN PRN NAUSEA/VOMITING ONDANSETRON OD T (ZOFRAN ODT) 4 MG PO Q6H PRN PRN NAUSEA/VOMITING #20 TABS Patient Instructions ED Anxiety Reaction, ED Miscarriage, Incomplete, Understanding Miscarriage: EmotionsAdditional InstructionsFollow-up with your [employer] [employer] physician in 1 to 2 days at 0974 RPT #: [id number] OF REPORTCHI St. [facility] [id number]:26:00L.[id number] [facility] jaglPCOIVFTLPSOMJG0830-76-11B86:17:18"
[2023-10-09 14:00] LABS: Absolute Lymphocytes (CBC) 1.6 K/uL (0.7-4.9); Hematocrit 36.6 % (36.0-45.0); Lymphocytes % 17.3 % (15.3-44.8); MCV 86.8 fL (80-100); MPV 8.2 fL (7.6-11.3); Platelets 270 thou/uL (152-406); RBC Red Blood Cell Count 4.22 M/uL (3.86-4.86)
[2023-10-09] MEDS ORDERED: METHYLPREDNISOLONE 125 MG INJ ONE (14:11)
[2023-10-09] MEDS ORDERED: predniSONE 20 MG TAB ONE (14:11)
[2023-10-09] MEDS ORDERED: CEFTRIAXONE 1000 MG/VIAL ONE (14:11)
[2023-10-09] MEDS ORDERED: ALBUTEROL 2.5 MG/3 ML NEB SOL ONE ×2 (14:11→15:31)
[2023-10-09] MEDS ORDERED: IPRATROPIUM BROM 0.5MG/2.5ML ONE (14:12)
[2023-10-09] MEDS ORDERED: NA CHLORIDE 0.9% ONE (14:12)
[2023-10-09] MEDS ORDERED: NA CHLORIDE 0.9% 1,000 ML ONE (14:12)
[2023-10-09] MEDS ORDERED: Magnesium Sulfate 2gm IVPB 2 G/50 ML BAG IV ONE (14:12)
[2023-10-09 14:20] LABS: Urine Bilirubin NEGATIVE (Negative); Urine Blood Negative (Negative); Urine Clarity Clear (Clear); Urine Color Light-Yellow (Yellow); Urine Glucose NEGATIVE (Negative); Urine Protein NEGATIVE (Negative); Urine Urobilinogen Normal (Normal); Urine pH 6.5 (5.0-7.0)
[2023-10-09 14:22] LABS: Albumin 3.6 g/dL (3.4-5.0); Bilirubin Total 0.3 mg/dL (0.2-1.0); Potassium 3.8 mEq/L (3.5-5.1); Protein, Total 6.9 g/dL (6.4-8.2)
[2023-10-09 14:30] LABS: SARS-CoV-2 Antigen Rapid Res Negative (Negative)
--- NOTE | 2023-10-09 14:38 | ER ---
Nurse's Notes [facility] Name: Cely Clancy Age: 27 yrs Sex: Female : 1995 Arrival Date: 10/09/2023 Time: 13:05 Bed 13 Private MD: Diagnosis: Dyspnea;Mild persistent asthma;Cough;Cough variant asthma Presentation: 10/09 13:15 Chief complaint: SOB, cough, chills, and nausea x 3-4 days. SOB is unrelieved by hb albuterol inhaler. Coronavirus screen: Client presents with at least one sign or symptom that may indicate coronavirus-19. Provider contacted for isolation considerations. Ebola Screen: No symptoms or risks identified at this time. Initial Sepsis Screen: Does the patient meet any 2 criteria? No. Patient's initial sepsis screen is negative. Does the patient have a suspected source of infection? No. Patient's initial sepsis screen is negative. Risk Assessment: Do you want to hurt yourself or someone else? Patient reports no desire to harm self or others. Onset of symptoms was October 05, 2023. 13:15 Method Of Arrival: Ambulatory 13:15 Acuity: TOMÁS 3 hb Triage Assessment: 14:00 General: Appears in no apparent distress. General: Appears uncomfortable, Behavior is db calm, cooperative. Respiratory: Airway is patent Respiratory effort is even, unlabored, Respiratory pattern is regular, symmetrical, Onset: The symptoms/episode began/occurred gradually, the patient has moderate shortness of breath. Historical: - Allergies: 13:17 No Known Allergies; hb - PMHx: 13:16 Anxiety; depressive disorder; PCOS; Post depression; hb - PSHx: 13:16 section; hb - Immunization history:: Adult Immunizations unknown. - Social history:: Smoking status: Reported history of juuling and/or vaping. Screenin:25 [facility] ED Fall Risk Assessment (Adult) History of falling in the last 3 months, iw including since admission No falls in past 3 months (0 pts) Score/Fall Risk Level 0 - 2 = Low Risk Oriented to surroundings. Abuse screen: Denies threats or abuse. Denies injuries from another. Nutritional screening: No deficits noted. Tuberculosis screening: No symptoms or risk factors identified. Assessment: 14:22 Reassessment: Patient appears in no apparent distress at this time. Patient and/or iw family updated on plan of care and expected duration. Pain level reassessed. Patient is alert, oriented x 3, equal unlabored respirations, skin warm/dry/pink. General: Appears in no apparent distress. comfortable, Behavior is calm, cooperative. Pain: Denies pain. Neuro: Level of Consciousness is awake, alert, obeys commands, Oriented to person, place, time, situation. Cardiovascular: Rhythm is regular. Respiratory: Reports shortness of breath at rest Airway is patent Respiratory effort is even, unlabored, Respiratory pattern is regular, symmetrical, Breath sounds are clear. 15:56 Reassessment: Patient appears in no apparent distress at this time. Patient and/or db family updated on plan of care and expected duration. Pain level reassessed. Patient is alert, oriented x 3, equal unlabored respirations, skin warm/dry/pink. Patient states feeling better. Patient states symptoms have improved. Vital Signs: 13:15 BP 128 / 80; Pulse 87; Resp 14; Temp 98.3(O); Pulse Ox 98% on R/A; Weight 54.43 kg; hb Height 5 ft. 1 in. ; Pain 0/10; 13:30 BP 121 / 88; Pulse 78; Resp 18; Pulse Ox 98% on R/A; db 14:30 BP 124 / 83; Pulse 91; Resp 18; Pulse Ox 99% on R/A; db 15:30 BP 111 / 82; Pulse 94; Resp 18; Pulse Ox 97% on R/A; db 13:15 Body Mass Index 22.67 (54.43 kg, 154.94 cm) hb 13:15 Pain Scale: Adult hb ED Course: 13:08 Patient arrived in ED. mg5 13:08 Mejia Rios MD is Attending Physician. perlita 13:16 Triage completed. hb 13:17 Arm band placed on. hb 13:22 Radiology exam delayed due to test not completed at this time. md2 13:28 Kamilah Sherman, RN is Primary Nurse. db 13:50 Inserted saline lock: 20 gauge in right antecubital area, using aseptic technique. iw Blood collected. 14:36 Dennis Pina MD is Referral Physician. perlita 14:50 Chest Pa And Lat (2 Views) XRAY In Process Unspecified. EDMS 15:56 No provider procedures requiring assistance completed. IV discontinued, intact, db bleeding controlled, No redness/swelling at site. Oxygen administered via a nebulizer mask. O2 via BREATHING TREATMENT Response to oxygen therapy: symptoms improved. 15:57 Patient has correct armband on for positive identification. Bed in low position. Call db light in reach. Side rails up X 1. Provided Education on: DISCHARGE. Client placed on continuous cardiac and pulse oximetry monitoring. NIBP monitoring applied. Administered Medications: 14:10 Drug: NS 0.9% IV 1000 ml IV at 1 bolus Per protocol; 1000 mL bolus Route: IV; Rate: 1 iw bolus; Site: right antecubital; 15:46 Follow up: Response: No adverse reaction; IV Status: Completed infusion; IV Intake: db 1000ml 14:10 Drug: predniSONE PO 60 mg PO once Route: PO; iw 15:46 Follow up: Response: No adverse reaction db 14:13 Drug: Rocephin IV 1 grams IV at per protocol once; Given slow IV push per pharmacy iw instructions Route: IV; Rate: per protocol; Site: right antecubital; 15:46 Follow up: Response: No adverse reaction; IV Status: Completed infusion; IV Intake: 50mldb 14:15 Drug: MethylPrednisoLONE IVP 125 mg IVP once Route: IVP; Site: right antecubital; iw 15:46 Follow up: Response: No adverse reaction db 14:15 Drug: Magnesium Sulfate IVPB 2 grams IVPB once over 1 hrs Route: IVPB; Infused Over: 1 iw hrs; Site: right antecubital; 15:47 Follow up: Response: No adverse reaction; IV Status: Completed infusion; IV Intake: 50mldb 14:20 Drug: Albuterol Inhalation 7.5 mg Inhalation once Route: Inhalation; iw 15:47 Follow up: Response: No adverse reaction db 14:20 Drug: Ipratropium Inhalation Aerosol 0.5 mg Inhalation once Route: Inhalation; iw 15:47 Follow up: Response: No adverse reaction db 15:15 Drug: Albuterol Inhalation 2.5 mg Inhalation once Route: Inhalation; db 15:47 Follow up: Response: No adverse reaction db 15:15 Drug: AZITHromycin PO 500 mg PO once Route: PO; db 15:47 Follow up: Response: No adverse reaction db Medication: 15:57 VIS not applicable for this client. db Intake: 15:46 IV: 50ml; Total: 50ml. db 15:46 IV: 1000ml; Total: 1050ml. db 15:47 IV: 50ml; Total: 1100ml. db Outcome: 14:37 Discharge ordered by . perlita 15:57 Discharged to home ambulatory, db 15:57 Condition: stable 15:57 Discharge instructions given to patient, Instructed on discharge instructions, follow up and referral plans. Prescriptions given X X 6 15:59 Patient left the ED. db Signatures: Dispatcher [employer] EDMejia Meier MD MD cha Williams, Irene, RN RN Wen Ewing RN RN Kamilah Sherman RN RN Macy Parekh md2 Gin Ware 5
--- NOTE | 2023-10-09 14:38 | EDPHYS ---
Physician Documentation [facility] Name: Cely Clancy Age: 27 yrs Sex: Female : 1995 Arrival Date: 10/09/2023 Time: 13:05 Bed 13 Private MD: ED Physician Mejia Rios HPI: 10/09 14:27 This 27 yrs old Female presents to ER via Ambulatory with complaints of perlita Breathing Difficulty. 14:27 The patient has shortness of breath at rest, with light activity. Onset: The perlita symptoms/episode began/occurred 2 day(s) ago. Duration: The symptoms are continuous, and are steadily getting worse. The patient's shortness of breath has no apparent modifying factors. Associated signs and symptoms: The patient has no apparent associated signs or symptoms. Severity of symptoms: At their worst the symptoms were mild in the emergency department the symptoms. The patient has experienced similar episodes in the past, several times. Historical: - Allergies: 13:17 No Known Allergies; hb - PMHx: 13:16 Anxiety; depressive disorder; PCOS; Post depression; hb - PSHx: 13:16 section; hb - Immunization history:: Adult Immunizations unknown. - Social history:: Smoking status: Reported history of juuling and/or vaping. ROS: 14:30 Constitutional: Negative for fever, chills, and weight loss, Eyes: Negative for injury, perlita pain, redness, and discharge, ENT: Negative for injury, pain, and discharge, Neck: Negative for injury, pain, and swelling, Cardiovascular: Negative for chest pain, palpitations, and edema, Abdomen/GI: Negative for abdominal pain, nausea, vomiting, diarrhea, and constipation, Back: Negative for injury and pain, : Negative for injury, bleeding, discharge, and swelling, MS/Extremity: Negative for injury and deformity, Skin: Negative for injury, rash, and discoloration, Neuro: Negative for headache, weakness, numbness, tingling, and seizure, Psych: Negative for depression, anxiety, suicide ideation, homicidal ideation, and hallucinations, Allergy/Immunology: Negative for hives, rash, and allergies, Endocrine: Negative for neck swelling, polydipsia, polyuria, polyphagia, and marked weight changes, Hematologic/Lymphatic: Negative for swollen nodes, abnormal bleeding, and unusual bruising, 14:30 Respiratory: Positive for cough, shortness of breath, at rest. Exam: 14:30 Constitutional: This is a well developed, well nourished patient who is awake, alert, perlita and in no acute distress. Head/Face: Normocephalic, atraumatic. Eyes: Pupils equal round and reactive to light, extra-ocular motions intact. Lids and lashes normal. Conjunctiva and sclera are non-icteric and not injected. Cornea within normal limits. Periorbital areas with no swelling, redness, or edema. ENT: Nares patent. No nasal discharge, no septal abnormalities noted. Tympanic membranes are normal and external auditory canals are clear. Oropharynx with no redness, swelling, or masses, exudates, or evidence of obstruction, uvula midline. Mucous membranes moist. Neck: Trachea midline, no thyromegaly or masses palpated, and no cervical lymphadenopathy. Supple, full range of motion without nuchal rigidity, or vertebral point tenderness. No Meningismus. Chest/axilla: Normal chest wall appearance and motion. Nontender with no deformity. No lesions are appreciated. Cardiovascular: Regular rate and rhythm with a normal S1 and S2. No gallops, murmurs, or rubs. Normal PMI, no JVD. No pulse deficits. Abdomen/GI: Soft, non-tender, with normal bowel sounds. No distension or tympany. No guarding or rebound. No evidence of tenderness throughout. Back: No spinal tenderness. No costovertebral tenderness. Full range of motion. Skin: Warm, dry with normal turgor. Normal color with no rashes, no lesions, and no evidence of cellulitis. MS/ Extremity: Pulses equal, no cyanosis. Neurovascular intact. Full, normal range of motion. Neuro: Awake and alert, GCS 15, oriented to person, place, time, and situation. Cranial nerves II-XII grossly intact. Motor strength 5/5 in all extremities. Sensory grossly intact. Cerebellar exam normal. Normal gait. 14:30 ECG was reviewed by the Attending Physician. 14:30 Respiratory: mild respiratory distress is noted, Respirations: labored breathing, that is mild, Breath sounds: bronchial sounds, that are mild, are scattered, Respiratory rate: 14 Vital Signs: 13:15 BP 128 / 80; Pulse 87; Resp 14; Temp 98.3(O); Pulse Ox 98% on R/A; Weight 54.43 kg; hb Height 5 ft. 1 in. ; Pain 0/10; 13:30 BP 121 / 88; Pulse 78; Resp 18; Pulse Ox 98% on R/A; db 14:30 BP 124 / 83; Pulse 91; Resp 18; Pulse Ox 99% on R/A; db 15:30 BP 111 / 82; Pulse 94; Resp 18; Pulse Ox 97% on R/A; db 13:15 Body Mass Index 22.67 (54.43 kg, 154.94 cm) hb 13:15 Pain Scale: Adult hb MDM: 13:08 Patient medically screened. perlita 14:34 Differential diagnosis: asthma, Bronchitis CHF exacerbation, Chronic Obstructive perlita Pulmonary Disease obstructed airway, bronchitis, flu, reactive airway, CHF, URI, Pneumothorax pulmonary edema, Pulmonary Embolism reactive airway disease, Sepsis Unstable Angina. Antibiotic administration: The patient is discharged and will get outpatient antibiotics, Zithromax. Immunization status:. Data reviewed: vital signs, nurses notes, lab test result(s), EKG, radiologic studies, plain films. Consideration of Admission/Observation Escalation of care including admission/observation considered. I considered the following discharge prescriptions or medication management in the emergency department Medications were administered in the Emergency Department. See MAR. Test considered but Not performed: CT: no ct chest pe. 10/09 13:10 Order name: Urinalysis w/ reflexes; Complete Time: 14:26 [facility] 10/09 13:10 Order name: PREGU; Complete Time: 14:26 [facility] 10/09 13:17 Order name: CBC with Diff; Complete Time: 14:26 [facility] 10/09 13:17 Order name: Comprehensive Metabolic Panel; Complete Time: 14:26 [facility] 10/09 13:17 Order name: Flu [facility] 10/09 13:17 Order name: SARS RAPID; Complete Time: 14:47 [facility] 10/09 13:35 Order name: D-Dimer; Complete Time: 14:26 [facility] 10/09 13:09 Order name: Chest Pa And Lat (2 Views) XRAY [facility] EC:30 Rate is 72 beats/min. Rhythm is regular. QRS [place] is Normal. TN interval is normal. QRS perlita interval is normal. QT interval is normal. No Q waves. T waves are Normal. No ST changes noted. Clinical impression: NSR w/ Non-specific ST/T Changes and No evidence of ischemia. Interpreted by me. Reviewed by me. Administered Medications: 14:10 Drug: NS 0.9% IV 1000 ml IV at 1 bolus Per protocol; 1000 mL bolus Route: IV; Rate: 1 iw bolus; Site: right antecubital; 15:46 Follow up: Response: No adverse reaction; IV Status: Completed infusion; IV Intake: db 1000ml 14:10 Drug: predniSONE PO 60 mg PO once Route: PO; iw 15:46 Follow up: Response: No adverse reaction db 14:13 Drug: Rocephin IV 1 grams IV at per protocol once; Given slow IV push per pharmacy iw instructions Route: IV; Rate: per protocol; Site: right antecubital; 15:46 Follow up: Response: No adverse reaction; IV Status: Completed infusion; IV Intake: 50mldb 14:15 Drug: MethylPrednisoLONE IVP 125 mg IVP once Route: IVP; Site: right antecubital; iw 15:46 Follow up: Response: No adverse reaction db 14:15 Drug: Magnesium Sulfate IVPB 2 grams IVPB once over 1 hrs Route: IVPB; Infused Over: 1 iw hrs; Site: right antecubital; 15:47 Follow up: Response: No adverse reaction; IV Status: Completed infusion; IV Intake: 50mldb 14:20 Drug: Albuterol Inhalation 7.5 mg Inhalation once Route: Inhalation; iw 15:47 Follow up: Response: No adverse reaction db 14:20 Drug: Ipratropium Inhalation Aerosol 0.5 mg Inhalation once Route: Inhalation; iw 15:47 Follow up: Response: No adverse reaction db 15:15 Drug: Albuterol Inhalation 2.5 mg Inhalation once Route: Inhalation; db 15:47 Follow up: Response: No adverse reaction db 15:15 Drug: AZITHromycin PO 500 mg PO once Route: PO; db 15:47 Follow up: Response: No adverse reaction db Disposition Summary: 10/09/23 14:37 Discharge Ordered Notes: Location: Home perlita Problem: new perlita Symptoms: have improved perlita Condition: Stable perlita Diagnosis - Dyspnea perlita - Mild persistent asthma perlita - Cough perlita - Cough variant asthma perlita Followup: perlita - With: Private Physician - When: 2 - 3 days - Reason: Recheck today's complaints, Continuance of care, Re-evaluation by your physician Followup: perlita - With: Dennis Pina MD - When: 2 - 3 days - Reason: Recheck today's complaints, Re-evaluation by your physician Discharge Instructions: - Discharge Summary Sheet perlita - Cool Mist Vaporizer perlita - Asthma, Adult, [id number] perlita - Cough, Adult perlita Forms: - Medication Reconciliation Form perlita - Thank You Letter perlita - Antibiotic Education perlita - Prescription Opioid Use perlita - Patient Portal Instructions perlita - Leadership Thank You Letter perlita - Work release form Prescriptions: - albuterol sulfate 90 mcg/actuation Inhalation HFA Aerosol Inhaler - inhale 2 inhalation INHALATION route every 4 to 6 hours as needed for shortness perlita of breath or wheezing; 1 unit; Refills: 0, Product Selection Permitted - Tessalon Perles 100 mg Oral capsule - take 2 capsule ORAL route every 8 hours As needed; 30 capsule; Refills: 0, [facility] Product Selection Permitted - Albuterol Sulfate 2.5 mg /3 mL (0.083 %) Inhalation Solution for Nebulization - inhale 1 unit NEBULIZATION route every 4-6 hours As needed; 50 unit; Refills: perlita 0, Product Selection Permitted - Prednisone 20 mg Oral Tablet - take 2 tablets ORAL route once daily for 5 days; 10 tablet; Refills: 0, Product perlita Selection Permitted - Zithromax 500 mg Oral tablet - take 1 tablet ORAL route once daily for 5 days; 5 tablet; Refills: 0, Product perlita Selection Permitted Signatures: Dispatcher [employer] Mejia Umanzor MD MD cha Williams, Irene, RN RN Wen Ewing RN RN Kamilah Sherman RN RN db
--- NOTE | 2023-10-09 14:59 | RAD REPORT ---
EXAM DESCRIPTION: RAD - Chest Pa And Lat (2 Views) - 10/09/2023 2:48 pm CLINICAL HISTORY: DYSPNEA Chest pain. COMPARISON: <Comparisons> FINDINGS: The lungs are clear. The heart is normal in size. No displaced fractures. IMPRESSION: No acute or concerning finding suspected.
[2023-10-09] MEDS ORDERED: AZITHROMYCIN 250 MG TAB ONE (15:31)
[2023-10-09 17:03] VITALS: TEMP 98.3
[2023-10-09 17:15] VITALS: BP 111/82; O2SAT 97
--- NOTE | 2023-10-11 16:55 | EKG ---
Test Date: 2023-10-09 Test Time: 14:06:14 Meteorology Teacher: TEODORO MEASUREMENT RESULTS: Intervals: Rate: 72 DC: 114 QRSD: 72 QT: 372 QTc: 407 [place]: P: 70 DC: 114 QRS: 84 T: 67 INTERPRETIVE STATEMENTS: Normal sinus rhythm with sinus arrhythmia Normal ECG Compared to ECG 07/04/2023 07:30:05 Sinus bradycardia no longer present Short DC interval no longer present Electronically Signed On 10-11-23 16:51:26 CUSTOMER SERVICE COORDINATOR by Larry Pino
== END 2023-10-09 15:59 | disposition home or self-care (01) ==
LOC: ER 13:05
DX: J45.30 Mild persistent asthma, uncomplicated (principal); J45.991 Cough variant asthma; R05.9 Cough, unspecified; Z11.52 Encounter for screening for COVID-19
CPT/HCPCS: 96365; 93005; 85025; 36415; 81025; 85379; 81003; 80053; 87804 ×2; 71046; 96375; 99285; 87811; J7512; J3475; J7613 ×2; J7644; J2930; J7030; J0696

== ENCOUNTER → 2024-02-02 | Emergency (ER) | payer SELFPAY ==
[~2024-02-02] MED LIST: ALBUTEROL 2.5 MG/3 ML NEB SOL ONE; IPRATROPIUM BROM 0.5MG/2.5ML ONE; KETOROLAC 30 MG/ML INJ ONE; predniSONE 20 MG TAB ONE
--- OUTSIDE RECORDS SUMMARY | 2024-02-02 13:10 | XMS REPORT | Continuity of Care Document ---
Author Name Unknown Address [address] [facility]. [address] [place] [address] [facility] thconnect Address [address] [facility] [address] [place] [address] Care Team Providers Care Dog Obedience Instructor Name Role Phone Odalys Daviseliese Primary Care Physician [phone] [email or web address] Attending Clinician Unavaila ARLYN Tesfaye Attending Clinician Unavaila ARLYN Tesfaye Attending Clinician Unavailnathaniel Madden RN, Arlen M Attending Clinician Unavailable Pob, [facility] Main Attending Clinician LISSET Johnston Attending Clinician Unavailable Doctor Unassigned, [place] Attending Clinician Edison Acevedo RN, Mitchell Longoria Attending Clinician Shannon ZARAGOZA, K Kimmy Attending Clinician [phone] Lisset Calhoun MD Attending Clinician [phone] Roger Dunlap MD Attending Clinician [phone] Lorenzo Mcmahan Attending Clinician Unavailable GUANAKITO FOX Attending Clinician Unavailable ALEX MERCHANT Attending Clinician Unavail able Guanakito Fox MD Attending Clinician [phone] José Miguel Lowery DO Attending Clinician [phone] JOSÉ MIGUEL LOWERY Attending Clinician Unavailable [email or web address] Admitting Clinician Unavaila LISSET Marino Admitting Clinician Unavailable Lisset Calhoun MD Admitting Clinician [phone] Leroy Cool Admitting Clinician Unavailab ARLYN Gregory Admitting Clinician Unavaila GUANAKITO Erickson Admitting Clinician Unavailable Guanakito Fox MD Admitting Clinician [phone] Payers Payer Name Policy Type Policy Number Effective Date Expirati on Date Source [facility] [id number] 2018 00:00:00 Problems Condition Name Condition Details Condition Category Status Onset Date Resolution Date Last Treatment Date Treating Clinician Comments Source Missed Missed Disease Active 0 08-11 00:00: 00 [facility] Abdominal pain affecting Abdominal pain affecting Disease Active 0 08-11 00:00: 00 [facility] Nausea and vomiting during Nausea and vomiting during Disease Active 0 08-11 00:00: 00 [facility] Vaginal bleeding affecting early Vaginal bleeding affecting early Disease Active 0 - 00:00: 00 [facility] Anxiety Anxiety Disease Active 0 08-09 00:00: 00 [facility] Vaginal bleeding in Vaginal bleeding in Disease Active 0 08-09 00:00: 00 [facility] Iron deficiency anemia Iron deficiency anemia Disease Active - 00:00: 00 [facility] delivery delivered delivery delivered Disease Active 0 - 00:00: 00 [facility] delivery delivered delivery delivered Disease Active 0 - 00:00: 00 [facility] COVID-19 virus infection COVID-19 virus infection Disease Active 1-25 00:00: 00 [facility] labor in third trimester with delivery labor in third trimester with delivery Disease Active 1 00:00: 00 [facility] Encounter for tubal ligation counseling Encounter for tubal ligation counseling Disease Active 2020-11 00:00: 00 [facility] High-risk in third trimester High-risk in third trimester Disease Active 2020-11 00:00: 00 [facility] Previous section Previous section Disease Active 2020-11 00:00: 00 [facility] History of depression History of depression Disease Active 2020-11 00:00: 00 [facility] History of anxiety History of anxiety Disease Active 2020-11 00:00: 00 [facility] Obesity during Obesity during Disease Active 2020-11 00:00: 00 [facility] Obesity (BMI 30-39.9) Obesity (BMI 30-39.9) Disease Active 2020-11 00:00: 00 [facility] History of section History of section Disease Active 2020-11 0-28 00:00: 00 Overview: Formattin g of this note might be different from the original. Formattin g of this note might be different from the original. Desires trial of labor.Raul ared for trial of labor. epsPatien t declines trial of labor now.Prete rm labor. [facility] Episodic mood disorder Episodic mood disorder Disease Active 4-30 00:00: 00 [facility] Arcuate uterus Arcuate uterus Disease Active 07-30 00:00: 00 [facility] MTHFR mutation MTHFR mutation Disease Active 07-30 00:00: 00 [facility] Generalize d abdominal pain Generalize d abdominal pain Disease Active 4-15 00:00: 00 [facility] Contracept brennon management Contracept brennon management Disease Active 3-03 00:00: 00 [facility] Vaginal bleeding Vaginal bleeding Disease Active 3-03 00:00: 00 [facility] Allergies, Adverse Reactions, Alerts Allergy Name Allergy Type Status Severity Reaction(s) Onset Date Inactive Date Treating Clinician Comments Source No Known Allergie s DA Active U 9- 00:00: 00 [facility] [place] NO KNOWN ALLERGIE S Drug Class Active [facility] Social History Social Habit Start Date Stop Date Quantity Comments Source ASSERTION 2021-04-23 00:00:00 [facility] History of tobacco use Current smoker [facility] Sexual orientation [facility] Exposure to SARS-CoV-2 (event) 2022-08-05 00:00:00 2022-08-15 10:54:00 Not sure [facility] Tobacco use and exposure 2022-08-08 00:00:00 2022-08-08 00:00:00 Smokeless tobacco non-user [facility] Alcohol intake 2022-08-08 00:00:00 2022-08-08 00:00:00 0 /d [facility] History of Social function 2022-08-08 00:00:00 2022-08-08 00:00:00 [facility] Sex Assigned At 1995 00:00:00 1995 00:00:00 [facility] Smoking Status Start Date Stop Date Source Ex-smoker 2022-08-08 00:00:00 2022-08-08 00:00:00 [facility] Medications Ordered Medication Name Filled Medication Name Start Date Stop Date Current Medication? Ordering Clinician Indication Dosage Frequency Signature (SIG) Comments Components Source metroNIDAZO LE 500 mg tablet 2021-11 00:00: 00 09-13 04:59 :00 No [id number] 500mg Take 1 tablet by mouth every 12 (twelve) hours for 7 days. [facility] metroNIDAZO LE 500 mg tablet 2021-11 017 00:00: 00 09-13 04:59 :00 No [id number] 500mg Take 1 tablet by mouth every 12 (twelve) hours for 7 days. [facility] ALPRAZolam 0.5 mg tablet 2021-11 010 00:00: 00 Yes .5mg Take 0.5 mg by mouth in the morning and 0.5 mg at noon and 0.5 mg in the evening. [facility] propranoloL 20 mg tablet 2021-11 010 00:00: [address] [facility] desvenlafax ine succinate 25 mg Tb24 2021-11 0 00:00: [address] [facility] ALPRAZolam 0.5 mg tablet 2021-11 0 00:00: 00 Yes .5mg Take 0.5 mg by mouth in the morning and 0.5 mg at noon and 0.5 mg in the evening. [facility] propranoloL 20 mg tablet 2021-11 0 00:00: [address] [facility] desvenlafax ine succinate 25 mg Tb24 2021-11 0 00:00: [address] [facility] diazePAM 10 mg tablet 08-17 00:00: [address] [facility] buPROPion XL 150 mg 24 hr tablet 08-17 00:00: [address] [facility] diazePAM 10 mg tablet 08-17 00:00: [address] [facility] buPROPion XL 150 mg 24 hr tablet 08-17 00:00: 00 Yes [facility] ketorolac (TORADOL) injection 30 mg 08-12 00:15: 00 08-11 23:29 :00 No 30mg 30 mg, Slow IV Push, ONCE, 1 dose, On Donna 08/11/22 at 1915, Routine [facility] ketorolac (TORADOL) injection 30 mg 08-12 00:15: 00 08-11 23:29 :00 No 30mg 30 mg, Slow IV Push, ONCE, 1 dose, On Donna 08/11/22 at 1915, Routine [facility] morpHINE (4 mg/mL) injection 2 mg 08-11 23:11: 20 Yes 2mg 2 mg, Slow IV Push, Q5MIN PRN, 5 doses, Starting on Donna 08/11/22 at 1811, Until Discontinu ed, Routine, Pain (scale 4-6), PACU [facility] ondansetron (ZOFRAN (PF)) injection 4 mg 08-11 23:11: 20 Yes 4mg 4 mg, Slow IV Push, PRN, 1 dose, Starting on Donna 08/11/22 at 1811, Until Discontinu ed, Routine, Nausea and Vomiting (N/V), PACU [facility] morpHINE (4 mg/mL) injection 2 mg 08-11 23:11: 20 08-12 02:16 :19 No 2mg 2 mg, Slow IV Push, Q5MIN PRN, 5 doses, Starting on Donna 08/11/22 at 1811, Until Donna 08/11/22 at 211, Routine, Pain (scale 4-6), PACU [facility] ondansetron (ZOFRAN (PF)) injection 4 mg 08-11 23:11: 20 08-12 02:16 :19 No 4mg 4 mg, Slow IV Push, PRN, 1 dose, Starting on Donna 08/11/22 at 1811, Until Donna 08/11/22 at 211, Routine, Nausea and Vomiting (N/V), PACU [facility] sugammadex (BRIDION) injection 08-11 22:45: 00 08-11 23:00 :49 No IV Push, ONCE INTRA PROCEDURE, Starting on Donna 08/11/22 at 1745, Until Donna 08/11/22 at 1800, Routine, Intra-op [facility] water for irrigation irrigation solution 08-11 22:28: 00 Yes PRN, Starting on Mon08/11/22 at 1728, Until Discontinu ed, Routine, Intra-op [facility] water for irrigation irrigation solution 08-11 22:28: 00 08-12 02:16 :19 No PRN, Starting on Donna 08/11/22 at 1728, Until Donna 08/11/22 at 2116, Routine, Intra-op [facility] ondansetron (ZOFRAN (PF)) injection 08-11 22:25: 00 08-11 23:00 :49 No Slow IV Push, ONCE INTRA PROCEDURE, Starting on Donna 08/11/22 at 1725, Until Donna 08/11/22 at 1800, Routine, Intra-op [facility] dexamethaso ne (DECADRON PHOSPHATE) injection 08-11 22:16: 00 08-11 23:00 :49 No IV Push, ONCE INTRA PROCEDURE, Starting on Donna 08/11/22 at 1716, Until Donna 08/11/22 at 1800, Routine, Intra-op [facility] doxycycline hyclate (Vibramycin ) capsule 08-11 22:15: 00 08-11 23:00 :49 No Oral, ONCE INTRA PROCEDURE, Starting on Donna 08/11/22 at 1715, Until Donna 08/11/22 at 1800, BRIGID, Intra-op [facility] rocuronium (ZEMURON) injection 08-11 22:09: 00 08-11 23:00 :49 No IV Push, ONCE INTRA PROCEDURE, Starting on Donna 08/11/22 at 1709, Until Donna 08/11/22 at 1800, Routine, Intra-op [facility] propofoL IV infusion 08-11 22:09: 00 08-11 23:00 :49 No Intravenou s, ONCE INTRA PROCEDURE, Starting on Donna 08/11/22 at 1709, Until Donna 08/11/22 at 1800, Routine, Intra-op [facility] FENTanyl PF (SUBLIMAZE (PF)) injection 08-11 22:09: 00 08-11 23:00 :49 No Intravenou s, ONCE INTRA PROCEDURE, Starting on Donna 08/11/22 at 1709, Until Donna 08/11/22 at 1800, Routine, Intra-op [facility] lidocaine 1% (XYLOCAINE) 100 mg/10 mL (1 %) injection 08-11:08: 00 08-11 23:00 :49 No Intravenou s, ONCE INTRA PROCEDURE, Starting on Mon08/11/22 at 1708, Until Mon08/11/22 at 1800, Routine, Intra-op [facility] midazolam (VERSED) injection 08-11 22:03: 00 08-26 16:04 :00 No IV Push, ONCE INTRA PROCEDURE, Starting on Mon08/11/22 at 1703, Until Mon08/26/22 at 1104, Routine, Intra-op [facility] lactated ringers IV infusion 08-11 22:03: 00 08-11 23:00 :49 No Intravenou s, CONTINUOUS PRN, Starting on Mon08/11/22 at 1703, Until Mon08/11/22 at 1800, Routine, Intra-op [facility] haloperidol lactate (HALDOL) injection 1 mg 08-11 21:00: 00 08-11 20:57 :00 No 1mg 1 mg, Intravenou s, ONCE, 1 dose, On Mon08/11/22 at 1600, STAT [facility] haloperidol lactate (HALDOL) injection 1 mg 08-11 21:00: 00 08-11 20:57 :00 No 1mg 1 mg, Intravenou s, ONCE, 1 dose, On Mon08/11/22 at 1600, [facility] ondansetron (ZOFRAN (PF)) injection 4 mg 08-11 19:30: 00 08-11 18:32 :00 No 4mg 4 mg, Slow IV Push, ONCE, 1 dose, On Mon08/11/22 at 1430, [facility] famotidine (PEPCID (PF)) injection 20 mg 08-11 19:30: 00 08-11 19:29 :00 No 20mg 20 mg, Slow IV Push, ONCE, 1 dose, On Mon08/11/22 at 1430, [facility] ondansetron (ZOFRAN (PF)) injection 4 mg 08-11 19:30: 00 08-11 18:32 :00 No 4mg 4 mg, Slow IV Push, ONCE, 1 dose, On Donna 08/11/22 at 1430, BRIGID [facility] famotidine (PEPCID (PF)) injection 20 mg 08-11 19:30: 00 08-11 19:29 :00 No 20mg 20 mg, Slow IV Push, ONCE, 1 dose, On Donna 08/11/22 at 1430, BRIGID [facility] vit calc,iron,f olic ( VITAMIN ORAL) 08-11 19:16: 17 Yes Take by mouth. [facility] vit calc,iron,f olic ( VITAMIN ORAL) 08-11 19:16: 17 Yes Take by mouth. [facility] vit calc,iron,f olic ( VITAMIN ORAL) 08-11 19:16: 17 Yes Take by mouth. [facility] vit calc,iron,f olic ( VITAMIN ORAL) 08-11 19:16: 17 Yes Take by mouth. [facility] vit calc,iron,f olic ( VITAMIN ORAL) 08-11 19:16: 17 Yes Take by mouth. [facility] vit calc,iron,f olic ( VITAMIN ORAL) 08-11 19:16: 17 Yes Take by mouth. [facility] vit calc,iron,f olic ( VITAMIN ORAL) 08-11 19:16: 17 Yes Take by mouth. [facility] vit calc,iron,f olic ( VITAMIN ORAL) 08-11 19:16: 17 Yes Take by mouth. [facility] vit calc,iron,f olic ( VITAMIN ORAL) 08-11 19:16: 17 Yes Take by mouth. [facility] vit calc,iron,f olic ( VITAMIN ORAL) 08-11 19:16: 17 Yes Take by mouth. [facility] vit calc,iron,f olic ( VITAMIN ORAL) 08-11 19:16: 17 Yes Take by mouth. [facility] vit calc,iron,f olic ( VITAMIN ORAL) 08-11 19:16: 17 Yes Take by mouth. [facility] vit calc,iron,f olic ( VITAMIN ORAL) 08-11 19:16: 17 Yes Take by mouth. [facility] vit calc,iron,f olic ( VITAMIN ORAL) 08-11 19:16: 17 Yes Take by mouth. [facility] vit calc,iron,f olic ( VITAMIN ORAL) 08-11 19:16: 17 Yes Take by mouth. [facility] NaCl 0.9% (NS) bolus infusion 1,000 mL 08-11 17:15: 00 08-11 17:30 :00 No 1000mL at 999 mL/hr, 1,000 mL, IV Piggyback, ONCE, 1 dose, On Donna 08/11/22 at 1215, STAT [facility] NaCl 0.9% (NS) bolus infusion 1,000 mL 08-11 17:15: 00 08-11 17:30 :00 No 1000mL at 999 mL/hr, 1,000 mL, IV Piggyback, ONCE, 1 dose, On Mon08/11/22 at 1215, STAT [facility] morpHINE (4 mg/mL) injection 4 mg 08-11 16:45: 00 08-11 16:05 :00 No 4mg 4 mg, Slow IV Push, ONCE, 1 dose, On Donna 08/11/22 at 1145, STAT [facility] morpHINE (4 mg/mL) injection 4 mg 08-11 16:45: 00 08-11 16:05 :00 No 4mg 4 mg, Slow IV Push, ONCE, 1 dose, On Donna 08/11/22 at 1145, [facility] proMETHazin e (PHENERGAN) 12.5 mg in NaCl 0.9% (NS) 50 mL IV piggyback 08-11 16:00: 00 08-11 16:09 :00 No 12.5mg 12.5 mg, IV Piggyback, ONCE, 1 dose, On [facility] 08/11/22 at 1100, [facility] proMETHazin e (PHENERGAN) 12.5 mg in NaCl 0.9% (NS) 50 mL IV piggyback 08-11 16:00: 00 08-11 16:09 :00 No 12.5mg 12.5 mg, IV Piggyback, ONCE, 1 dose, On Donna 08/11/22 at 1100, [facility] ondansetron (ZOFRAN (PF)) injection 4 mg 08-11 15:15: 00 08-11 15:11 :00 No 4mg 4 mg, Slow IV Push, ONCE, 1 dose, On Donna 08/11/22 at 1015, [facility] ondansetron (ZOFRAN (PF)) injection 4 mg 08-11 15:15: 00 08-11 15:11 :00 No 4mg 4 mg, Slow IV Push, ONCE, 1 dose, On Donna 08/11/22 at 1015, [facility] ibuprofen 800 mg tablet 08-11 00:00: 00 Yes [id number] 800mg Take 1 tablet by mouth every 6 (six) hours as needed for Alternate with Mead for pain scale 4-6. [facility] amoxicillin -pot clavulanate 500 mg (AUGMENTIN) 500-125 mg tablet 08-11 00:00: 00 Yes [id number] 500mg Take 1 tablet by mouth in the morning and 1 tablet at noon and 1 tablet in the evening. [facility] methylergon ovine 0.2 mg tablet 08-11 00:00: 00 Yes [id number] 200ug Take 1 tablet by mouth every 6 (six) hours. [facility] ibuprofen 800 mg tablet 08-11 00:00: 00 Yes [id number] 800mg Take 1 tablet by mouth every 6 (six) hours as needed for Alternate with Mead for pain scale 4-6. [facility] amoxicillin -pot clavulanate 500 mg (AUGMENTIN) 500-125 mg tablet 08-11 00:00: 00 Yes [id number] 500mg Take 1 tablet by mouth in the morning and 1 tablet at noon and 1 tablet in the evening. [facility] methylergon ovine 0.2 mg tablet 08-11 00:00: 00 Yes [id number] 200ug Take 1 tablet by mouth every 6 (six) hours. [facility] ibuprofen 800 mg tablet 08-11 00:00: 00 Yes [id number] 800mg Take 1 tablet by mouth every 6 (six) hours as needed for Alternate with Mead for pain scale 4-6. [facility] amoxicillin -pot clavulanate 500 mg (AUGMENTIN) 500-125 mg tablet 08-11 00:00: 00 Yes [id number] 500mg Take 1 tablet by mouth in the morning and 1 tablet at noon and 1 tablet in the evening. [facility] methylergon ovine 0.2 mg tablet 08-11 00:00: 00 Yes [id number] 200ug Take 1 tablet by mouth every 6 (six) hours. [facility] ibuprofen 800 mg tablet 08-11 00:00: 00 Yes [id number] 800mg Take 1 tablet by mouth every 6 (six) hours as needed for Alternate with [place] for pain scale 4-6. [facility] amoxicillin -pot clavulanate 500 mg (AUGMENTIN) 500-125 mg tablet 08-11 00:00: 00 Yes [id number] 500mg Take 1 tablet by mouth in the morning and 1 tablet at noon and 1 tablet in the evening. [facility] methylergon ovine 0.2 mg tablet 08-11 00:00: 00 Yes [id number] 200ug Take 1 tablet by mouth every 6 (six) hours. [facility] ibuprofen 800 mg tablet 08-11 00:00: 00 Yes [id number] 800mg Take 1 tablet by mouth every 6 (six) hours as needed for Alternate with [facility] for pain scale 4-6. [facility] amoxicillin -pot clavulanate 500 mg (AUGMENTIN) 500-125 mg tablet 08-11 00:00: 00 Yes [id number] 500mg Take 1 tablet by mouth in the morning and 1 tablet at noon and 1 tablet in the evening. [facility] methylergon ovine 0.2 mg tablet 08-11 00:00: 00 Yes [id number] 200ug Take 1 tablet by mouth every 6 (six) hours. [facility] ibuprofen 800 mg tablet 08-11 00:00: 00 Yes [id number] 800mg Take 1 tablet by mouth every 6 (six) hours as needed for Alternate with [facility] for pain scale 4-6. [facility] amoxicillin -pot clavulanate 500 mg (AUGMENTIN) 500-125 mg tablet 08-11 00:00: 00 Yes [id number] 500mg Take 1 tablet by mouth in the morning and 1 tablet at noon and 1 tablet in the evening. [facility] methylergon ovine 0.2 mg tablet 08-11 00:00: 00 Yes [id number] 200ug Take 1 tablet by mouth every 6 (six) hours. [facility] ibuprofen 800 mg tablet 08-11 00:00: 00 Yes [id number] 800mg Take 1 tablet by mouth every 6 (six) hours as needed for Alternate with [facility] for pain scale 4-6. [facility] amoxicillin -pot clavulanate 500 mg (AUGMENTIN) 500-125 mg tablet 08-11 00:00: 00 Yes [id number] 500mg Take 1 tablet by mouth in the morning and 1 tablet at noon and 1 tablet in the evening. [facility] methylergon ovine 0.2 mg tablet 2021-08-11 00:00: 00 Yes [id number] 200ug Take 1 tablet by mouth every 6 (six) hours. [facility] ibuprofen 800 mg tablet 08-11 00:00: 00 Yes [id number] 800mg Take 1 tablet by mouth every 6 (six) hours as needed for Alternate with [facility] for pain scale 4-6. [facility] amoxicillin -pot clavulanate 500 mg (AUGMENTIN) 500-125 mg tablet 08-11 00:00: 00 Yes [id number] 500mg Take 1 tablet by mouth in the morning and 1 tablet at noon and 1 tablet in the evening. [facility] methylergon ovine 0.2 mg tablet 08-11 00:00: 00 Yes [id number] 200ug Take 1 tablet by mouth every 6 (six) hours. [facility] ibuprofen 800 mg tablet 08-11 00:00: 00 Yes [id number] 800mg Take 1 tablet by mouth every 6 (six) hours as needed for Alternate with [facility] for pain scale 4-6. [facility] amoxicillin -pot clavulanate 500 mg (AUGMENTIN) 500-125 mg tablet 08-11 00:00: 00 Yes [id number] 500mg Take 1 tablet by mouth in the morning and 1 tablet at noon and 1 tablet in the evening. [facility] methylergon ovine 0.2 mg tablet 08-11 00:00: 00 Yes [id number] 200ug Take 1 tablet by mouth every 6 (six) hours. [facility] ibuprofen 800 mg tablet 08-11 00:00: 00 Yes [id number] 800mg Take 1 tablet by mouth every 6 (six) hours as needed for Alternate with [facility] for pain scale 4-6. [facility] amoxicillin -pot clavulanate 500 mg (AUGMENTIN) 500-125 mg tablet 08-11 00:00: 00 Yes [id number] 500mg Take 1 tablet by mouth in the morning and 1 tablet at noon and 1 tablet in the evening. [facility] methylergon ovine 0.2 mg tablet 08-11 00:00: 00 Yes [id number] 200ug Take 1 tablet by mouth every 6 (six) hours. [facility] ibuprofen 800 mg tablet 08-11 00:00: 00 Yes [id number] 800mg Take 1 tablet by mouth every 6 (six) hours as needed for Alternate with [facility] for pain scale 4-6. [facility] methylergon ovine 0.2 mg tablet 08-11 00:00: 00 Yes [id number] 200ug Take 1 tablet by mouth every 6 (six) hours. [facility] ibuprofen 800 mg tablet 08-11 00:00: 00 Yes [id number] 800mg Take 1 tablet by mouth every 6 (six) hours as needed for Alternate with [facility] for pain scale 4-6. [facility] methylergon ovine 0.2 mg tablet 08-11 00:00: 00 Yes [id number] 200ug Take 1 tablet by mouth every 6 (six) hours. [facility] amoxicillin -pot clavulanate 500 mg (AUGMENTIN) 500-125 mg tablet 08-11 00:00: 00 09-05 00:00 :00 No [id number] 500mg Take 1 tablet by mouth in the morning and 1 tablet at noon and 1 tablet in the evening. [facility] amoxicillin -pot clavulanate 500 mg (AUGMENTIN) 500-125 mg tablet 08-11 00:00: 00 09-05 00:00 :00 No [id number] 500mg Take 1 tablet by mouth in the morning and 1 tablet at noon and 1 tablet in the evening. [facility] HYDROcodone -acetaminop hen 5-325 mg tablet 08-11 00:00: 00 08-19 04:59 :00 No [id number] 1{tbl} Take 1 tablet by mouth every 6 (six) hours as needed for Pain (scale 7-10) for up to 7 days. Indication s: acute pain [facility] HYDROcodone -acetaminop hen 5-325 mg tablet 08-11 00:00: 00 08-19 04:59 :00 No [id number] 1{tbl} Take 1 tablet by mouth every 6 (six) hours as needed for Pain (scale 7-10) for up to 7 days. Indication s: acute [facility] HYDRO[facility]one -acetaminop hen 5-325 mg tablet 08-11 00:00: 00 08-19 04:59 :00 No [id number] 1{tbl} Take 1 tablet by mouth every 6 (six) hours as needed for Pain (scale 7-10) for up to 7 days. Indication s: acute pain [facility] HYDROcodone -acetaminop hen 5-325 mg tablet 08-11 00:00: 00 08-19 04:59 :00 No [id number] 1{tbl} Take 1 tablet by mouth every 6 (six) hours as needed for Pain (scale 7-10) for up to 7 days. Indication s: acute pain [facility] HYDROcodone -acetaminop hen 5-325 mg tablet 08-11 00:00: 00 08-19 04:59 :00 No [id number] 1{tbl} Take 1 tablet by mouth every 6 (six) hours as needed for Pain (scale 7-10) for up to 7 days. Indication s: acute pain [facility] HYDROcodone -acetaminop hen 5-325 mg tablet 08-11 00:00: 00 08-19 04:59 :00 No [id number] 1{tbl} Take 1 tablet by mouth every 6 (six) hours as needed for Pain (scale 7-10) for up to 7 days. Indication s: acute pain [facility] HYDROcodone -acetaminop hen 5-325 mg tablet 08-11 00:00: 00 08-19 04:59 :00 No [id number] 1{tbl} Take 1 tablet by mouth every 6 (six) hours as needed for Pain (scale 7-10) for up to 7 days. Indication s: acute pain [facility] ondansetron 8 mg disintegrat ing tablet 08-10 00:00: 00 Yes [id number] 8mg Take 1 tablet by mouth every 8 (eight) hours as needed for Nausea and Vomiting (N/V). [facility] ondansetron 8 mg disintegrat ing tablet 08-10 00:00: 00 Yes [id number] 8mg Take 1 tablet by mouth every 8 (eight) hours as needed for Nausea and Vomiting (N/V). [facility] ondansetron 8 mg disintegrat ing tablet 08-10 00:00: 00 Yes [id number] 8mg Take 1 tablet by mouth every 8 (eight) hours as needed for Nausea and Vomiting (N/V). [facility] ondansetron 8 mg disintegrat ing tablet 08-10 00:00: 00 Yes [id number] 8mg Take 1 tablet by mouth every 8 (eight) hours as needed for Nausea and Vomiting (N/V). [facility] ondansetron 8 mg disintegrat ing tablet 08-10 00:00: 00 Yes [id number] 8mg Take 1 tablet by mouth every 8 (eight) hours as needed for Nausea and Vomiting (N/V). [facility] ondansetron 8 mg disintegrat ing tablet 08-10 00:00: 00 Yes [id number] 8mg Take 1 tablet by mouth every 8 (eight) hours as needed for Nausea and Vomiting (N/V). [facility] ondansetron 8 mg disintegrat ing tablet 08-10 00:00: 00 Yes [id number] 8mg Take 1 tablet by mouth every 8 (eight) hours as needed for Nausea and Vomiting (N/V). [facility] ondansetron 8 mg disintegrat ing tablet 08-10 00:00: 00 Yes [id number] 8mg Take 1 tablet by mouth every 8 (eight) hours as needed for Nausea and Vomiting (N/V). [facility] ondansetron 8 mg disintegrat ing tablet 0 08-10 00:00: 00 Yes [id number] 8mg Take 1 tablet by mouth every 8 (eight) hours as needed for Nausea and Vomiting (N/V). [facility] ondansetron 8 mg disintegrat ing tablet 0 08-10 00:00: 00 Yes [id number] 8mg Take 1 tablet by mouth every 8 (eight) hours as needed for Nausea and Vomiting (N/V). [facility] ondansetron 8 mg disintegrat ing tablet 08-10 00:00: 00 Yes [id number] 8mg Take 1 tablet by mouth every 8 (eight) hours as needed for Nausea and Vomiting (N/V). [facility] ondansetron 8 mg disintegrat ing tablet 08-10 00:00: 00 Yes [id number] 8mg Take 1 tablet by mouth every 8 (eight) hours as needed for Nausea and Vomiting (N/V). [facility] ondansetron 8 mg disintegrat ing tablet 08-10 00:00: 00 Yes [id number] 8mg Take 1 tablet by mouth every 8 (eight) hours as needed for Nausea and Vomiting (N/V). [facility] ondansetron 8 mg disintegrat ing tablet 08-10 00:00: 00 Yes [id number] 8mg Take 1 tablet by mouth every 8 (eight) hours as needed for Nausea and Vomiting (N/V). [facility] LORazepam 0.5 mg tablet 08-10 00:00: 00 Yes TAKE 1 TABLET BY MOUTH EVERY 8 HOURS NEEDED FOR ANXIETY [facility] ondansetron 8 mg disintegrat ing tablet 08-10 00:00: 00 Yes [id number] 8mg Take 1 tablet by mouth every 8 (eight) hours as needed for Nausea and Vomiting (N/V). [facility] LORazepam 0.5 mg tablet 08-10 00:00: 00 Yes TAKE 1 TABLET BY MOUTH EVERY 8 HOURS NEEDED FOR ANXIETY [facility] vit calc,iron,f olic ( VITAMIN ORAL) 08-08 11:16: 52 Yes Take by mouth. [facility] vit calc,iron,f olic ( VITAMIN ORAL) 08-08 11:16: 52 Yes Take by mouth. [facility] vit calc,iron,f olic ( VITAMIN ORAL) 08-08 11:16: 52 Yes Take by mouth. [facility] vit calc,iron,f olic ( VITAMIN ORAL) 08-08 11:16: 52 Yes Take by mouth. [facility] TRAMADOL-AC ETAMINOPHN 37.5-325 -08 00:00: 00 No TAKE 1 TABLET BY MOUTH EVERY 8 HOURS FOR UP TO 31 DAYS NEEDED FOR PAIN 0 07-28 00:00: 00 No dextroamphe tamine-amph etamine 20 mg tablet 2021-0 8-18 00:00: 00 Yes [facility] dextroamphe tamine-amph etamine 20 mg tablet 0 8-18 00:00: 00 Yes [facility] dextroamphe tamine-amph etamine 20 mg tablet 0 8-18 00:00: 00 Yes [facility] dextroamphe tamine-amph etamine 20 mg tablet 2021-0 8-18 00:00: 00 Yes [facility] dextroamphe tamine-amph etamine 20 mg tablet 0 8-18 00:00: 00 Yes [facility] dextroamphe tamine-amph etamine 20 mg tablet 2021-0 8-18 00:00: 00 Yes [facility] dextroamphe tamine-amph etamine 20 mg tablet 0 8-18 00:00: 00 Yes [facility] dextroamphe tamine-amph etamine 20 mg tablet 2021-0 8-18 00:00: 00 Yes [facility] dextroamphe tamine-amph etamine 20 mg tablet 2021-0 8-18 00:00: 00 Yes [facility] dextroamphe tamine-amph etamine 20 mg tablet 2021-0 8-18 00:00: 00 Yes [facility] dextroamphe tamine-amph etamine 20 mg tablet 2021-0 8-18 00:00: 00 Yes [facility] dextroamphe tamine-amph etamine 20 mg tablet 2021-0 8-18 00:00: 00 Yes [facility] dextroamphe tamine-amph etamine 20 mg tablet 2022-0 8-18 00:00: [address] [facility] dextroamphe tamine-amph etamine 20 mg tablet 2021-0 8-18 00:00: 00 Yes [facility] dextroamphe tamine-amph etamine 20 mg tablet 2021-0 8-18 00:00: [address] [facility] dextroamphe tamine-amph etamine 20 mg tablet 2021-0 8-18 00:00: [address] [facility] dextroamphe tamine-amph etamine 20 mg tablet 2021-0 8-18 00:00: [address] [facility] dextroamphe tamine-amph etamine 20 mg tablet 2021-0 8-18 00:00: 00 Yes [facility] it[facility] dextroamphe tamine-amph etamine 20 mg tablet 2021-0 8-18 00:00: 00 Yes [facility] it[facility] zolpidem 10 mg tablet 2021-0 7-18 00:00: 00 Yes TAKE 1/2 TO 1 TABLET BY MOUTH DAILY AT BEDTIME [facility] zolpidem 10 mg tablet 2021-0 718 00:00: 00 Yes TAKE 1/2 TO 1 TABLET BY MOUTH DAILY AT BEDTIME [facility] zolpidem 10 mg tablet 2021-0 718 00:00: 00 Yes TAKE 1/2 TO 1 TABLET BY MOUTH DAILY AT BEDTIME [facility] zolpidem 10 mg tablet 2021-0 718 00:00: 00 Yes TAKE 1/2 TO 1 TABLET BY MOUTH DAILY AT BEDTIME [facility] zolpidem 10 mg tablet 2-0 18 00:00: 00 Yes TAKE 1/2 TO 1 TABLET BY MOUTH DAILY AT BEDTIME [facility] 2-0 18 00:00: 00 Yes TAKE 1/2 TO 1 TABLET BY MOUTH DAILY AT BEDTIME [facility] zolpidem 10 mg tablet 2-0 7-18 00:00: 00 Yes TAKE 1/2 TO 1 TABLET BY MOUTH DAILY AT BEDTIME [facility] zolpidem 10 mg tablet 2021-0 7-18 00:00: 00 Yes TAKE 1/2 TO 1 TABLET BY MOUTH DAILY AT BEDTIME [facility] zolpidem 10 mg tablet 2021-0 18 00:00: 00 Yes TAKE 1/2 TO 1 TABLET BY MOUTH DAILY AT BEDTIME [facility] zolpidem 10 mg tablet 2021-0 18 00:00: 00 Yes TAKE 1/2 TO 1 TABLET BY MOUTH DAILY AT BEDTIME [facility] zolpidem 10 mg tablet 2021-0 18 00:00: 00 Yes TAKE 1/2 TO 1 TABLET BY MOUTH DAILY AT BEDTIME [facility] zolpidem 10 mg tablet 2021-0 06-06 00:00: 00 Yes TAKE 1/2 TO 1 TABLET BY MOUTH DAILY AT BEDTIME [facility] zolpidem 10 mg tablet 2021-0 06-06 00:00: 00 Yes TAKE 1/2 TO 1 TABLET BY MOUTH DAILY AT BEDTIME [facility] zolpidem 10 mg tablet 2021-0 06-06 00:00: 00 Yes TAKE 1/2 TO 1 TABLET BY MOUTH DAILY AT BEDTIME [facility] zolpidem 10 mg tablet 2021-0 06-06 00:00: 00 Yes TAKE 1/2 TO 1 TABLET BY MOUTH DAILY AT BEDTIME [facility] zolpidem 10 mg tablet 2021-0 18 00:00: 00 Yes TAKE 1/2 TO 1 TABLET BY MOUTH DAILY AT BEDTIME [facility] zolpidem 10 mg tablet 2021-0 06-06 00:00: 00 Yes TAKE 1/2 TO 1 TABLET BY MOUTH DAILY AT BEDTIME [facility] zolpidem 10 mg tablet 2021-0 18 00:00: 00 Yes TAKE 1/2 TO 1 TABLET BY MOUTH DAILY AT BEDTIME [facility] zolpidem 10 mg tablet 2021-0 18 00:00: 00 Yes TAKE 1/2 TO 1 TABLET BY MOUTH DAILY AT BEDTIME [facility] desvenlafax ine succinate 50 mg 24 hr tablet 2021-0 06-03 00:00: 00 Yes [facility] desvenlafax ine succinate 50 mg 24 hr tablet 2021-0 06-03 00:00: 00 Yes [facility] desvenlafax ine succinate 50 mg 24 hr tablet 0 06-03 00:00: 00 Yes [facility] desvenlafax ine succinate 50 mg 24 hr tablet 0 06-03 00:00: 00 Yes [facility] desvenlafax ine succinate 50 mg 24 hr tablet 0 06-03 00:00: 00 Yes [facility] desvenlafax ine succinate 50 mg 24 hr tablet 0 06-03 00:00: 00 Yes [facility] desvenlafax ine succinate 50 mg 24 hr tablet 0 06-03 00:00: 00 Yes [facility] desvenlafax ine succinate 50 mg 24 hr tablet 0 06-03 00:00: 00 Yes [facility] desvenlafax ine succinate 50 mg 24 hr tablet 0 06-03 00:00: 00 Yes [facility] desvenlafax ine succinate 50 mg 24 hr tablet 0 06-03 00:00: 00 Yes [facility] desvenlafax ine succinate 50 mg 24 hr tablet 0 06-03 00:00: 00 Yes [facility] desvenlafax ine succinate 50 mg 24 hr tablet 0 06-03 00:00: 00 Yes [facility] desvenlafax ine succinate 50 mg 24 hr tablet 0 06-03 00:00: 00 Yes [facility] desvenlafax ine succinate 50 mg 24 hr tablet 0 15 00:00: 00 Yes [facility] desvenlafax ine succinate 50 mg 24 hr tablet 0 15 00:00: 00 Yes [facility] desvenlafax ine succinate 50 mg 24 hr tablet 0 06-03 00:00: 00 Yes [facility] desvenlafax ine succinate 50 mg 24 hr tablet 06-03 00:00: 00 Yes [facility] desvenlafax ine succinate 50 mg 24 hr tablet 06-03 00:00: 00 Yes [facility] desvenlafax ine succinate 50 mg 24 hr tablet 06-03 00:00: 00 Yes [facility] vit calc,iron,f olic ( VITAMIN ORAL) 2020-11 14:57: 53 Yes Take by mouth. [facility] vit calc,iron,f olic ( VITAMIN ORAL) 2020-11 14:57: 53 Yes Take by mouth. [facility] Nitrofurant oin&Nit. Macrocryst 100 mg capsule 2020-11 00:00: 00 Yes [id number] 100mg Take 1 capsule by mouth 2 (two) times daily. [facility] Nitrofurant oin&Nit. Macrocryst 100 mg capsule 2020-11 00:00: 00 10-29 00:00 :00 No [id number] 100mg Take 1 capsule by mouth 2 (two) times daily. [facility] haloperidol lactate (HALDOL) injection 2.5 mg 01-29 16:30: 00 01-29 15:23 :00 No 2.5mg 2.5 mg, Intravenou s, ONCE, 1 dose, Mon01/29/21 at 1030, STAT [facility] diphenhydrA MINE (BENADRYL) injection 25 mg 01-29 15:15: 00 01-29 15:15 :00 No 25mg 25 mg, Slow IV Push, ONCE, 1 dose, Mon01/29/21 at 0915, STAT [facility] haloperidol lactate (HALDOL) injection 2.5 mg 01-29 15:15: 00 01-29 15:15 :00 No 2.5mg 2.5 mg, Intravenou s, ONCE, 1 dose, Mon01/29/21 at 0915, STAT [facility] ondansetron 4 mg disintegrat ing tablet 01-29 00:00: 00 Yes [id number] 4mg Take 1 tablet by mouth every 8 (eight) hours as needed for Nausea and Vomiting (N/V). [facility] ondansetron 4 mg disintegrat ing tablet 01-29 00:00: 00 Yes [id number] 4mg Take 1 tablet by mouth every 8 (eight) hours as needed for Nausea and Vomiting (N/V). [facility] ondansetron 4 mg disintegrat ing tablet 01-29 00:00: 00 Yes [id number] 4mg Take 1 tablet by mouth every 8 (eight) hours as needed for Nausea and Vomiting (N/V). [facility] ondansetron 4 mg disintegrat ing tablet 01-29 00:00: 00 10-29 00:00 :00 No [id number] 4mg Take 1 tablet by mouth every 8 (eight) hours as needed for Nausea and Vomiting (N/V). [facility] cephALEXin (KEFLEX) 500 mg capsule 01-29 00:00: 00 02-06 04:59 :00 No [id number] 500mg Take 1 capsule by mouth 3 (three) times daily for 7 days. [facility] dicyclomine (BENTYL) 10 mg capsule 01-29 00:00: 00 02-04 04:59 :00 No [id number] 10mg Take 1 capsule by mouth every 8 (eight) hours as needed for Abdominal pain for up to 5 days. [facility] Immunizations Ordered Immunization Name Filled Immunization Name Date Status Comments Source TDAP 2012-11-20 00:00:00 Completed [facility] TDAP 2012-11-20 00:00:00 Completed [facility] TDAP 2012-11-20 00:00:00 Completed [facility] TDAP 2012-11-20 00:00:00 Completed [facility] TDAP 2012-11-20 00:00:00 Completed [facility] TDAP 2012-11-20 00:00:00 Completed [facility] TDAP 2012-11-20 00:00:00 Completed [facility] TDAP 2012-11-20 00:00:00 Completed [facility] TDAP 2012-11-20 00:00:00 Completed [facility] TDAP 2012-11-20 00:00:00 Completed [facility] TDAP 2012-11-20 00:00:00 Completed [facility] TDAP 2012-11-20 00:00:00 Completed [facility] TDAP 2012-11-20 00:00:00 Completed [facility] TDAP 2012-11-20 00:00:00 Completed [facility] TDAP 2012-11-20 00:00:00 Completed [facility] TDAP 2012-11-20 00:00:00 Completed [facility] TDAP 2012-11-20 00:00:00 Completed [facility] TDAP 2012-11-20 00:00:00 Completed [facility] TDAP 2012-11-20 00:00:00 Completed [facility] TDAP 2012-11-20 00:00:00 Completed [facility] TDAP 2012-11-20 00:00:00 Completed [facility] TDAP 2012-11-20 00:00:00 Completed [facility] DTAP 2002-02-27 00:00:00 Completed [facility] Polio (IPV/OPV) 2002-02-27 00:00:00 Completed [facility] MMR 2002-02-27 00:00:00 Completed [facility] Pneumococcal 7 Conjugate, PCV7 (Prevnar7) 2002-02-27 00:00:00 Completed [facility] DTAP 2002-02-27 00:00:00 Completed [facility] MMR 2002-02-27 00:00:00 Completed [facility] Pneumococcal 7 Conjugate, PCV7 (Prevnar7) 2002-02-27 00:00:00 Completed [facility] Polio (IPV/OPV) 2002-02-27 00:00:00 Completed [facility] DTAP 2002-02-27 00:00:00 Completed [facility] Polio (IPV/OPV) 2002-02-27 00:00:00 Completed [facility] MMR 2002-02-27 00:00:00 Completed [facility] Pneumococcal 7 Conjugate, PCV7 (Prevnar7) 2002-02-27 00:00:00 Completed [facility] DTAP 2002-02-27 00:00:00 Completed [facility] MMR 2002-02-27 00:00:00 Completed [facility] Pneumococcal 7 Conjugate, PCV7 (Prevnar7) 2002-02-27 00:00:00 Completed [facility] Polio (IPV/OPV) 2002-02-27 00:00:00 Completed [facility] DTAP 2002-02-27 00:00:00 Completed [facility] Polio (IPV/OPV) 2002-02-27 00:00:00 Completed [facility] MMR 2002-02-27 00:00:00 Completed [facility] Pneumococcal 7 Conjugate, PCV7 (Prevnar7) 2002-02-27 00:00:00 Completed [facility] DTAP 2002-02-27 00:00:00 Completed [facility] MMR 2002-02-27 00:00:00 Completed [facility] Pneumococcal 7 Conjugate, PCV7 (Prevnar7) 2002-02-27 00:00:00 Completed [facility] Polio (IPV/OPV) 2002-02-27 00:00:00 Completed [facility] DTAP 2002-02-27 00:00:00 Completed [facility] Polio (IPV/OPV) 2002-02-27 00:00:00 Completed [facility] MMR 2002-02-27 00:00:00 Completed [facility] Pneumococcal 7 Conjugate, PCV7 (Prevnar7) 2002-02-27 00:00:00 Completed [facility] DTAP 2002-02-27 00:00:00 Completed [facility] MMR 2002-02-27 00:00:00 Completed [facility] Pneumococcal 7 Conjugate, PCV7 (Prevnar7) 2002-02-27 00:00:00 Completed [facility] Polio (IPV/OPV) 2002-02-27 00:00:00 Completed [facility] DTAP 2002-02-27 00:00:00 Completed [facility] Polio (IPV/OPV) 2002-02-27 00:00:00 Completed [facility] MMR 2002-02-27 00:00:00 Completed [facility] Pneumococcal 7 Conjugate, PCV7 (Prevnar7) 2002-02-27 00:00:00 Completed [facility] DTAP 2002-02-27 00:00:00 Completed [facility] MMR 2002-02-27 00:00:00 Completed [facility] Pneumococcal 7 Conjugate, PCV7 (Prevnar7) 2002-02-27 00:00:00 Completed [facility] Polio (IPV/OPV) 2002-02-27 00:00:00 Completed [facility] TDAP Unknown Completed [facility] Vital Signs Vital Name Observation Time Observation Value Comments S ource Systolic blood pressure 2022-09-05 20:16:00 116 mm[Hg] [facility] Diastolic blood pressure 2022-09-05 20:16:00 78 mm[Hg] [facility] Heart rate 2022-09-05 20:16:00 75 /min [facility] Body temperature 2022-09-05 20:16:00 36.67 Blanka [facility] Respiratory rate 2022-09-05 20:16:00 18 /min [facility] Body height 2022-09-05 20:16:00 154.9 cm [facility] Body weight 2022-09-05 20:16:00 52.617 kg [facility] BMI 2022-09-05 20:16:00 21.92 kg/m2 [facility] Systolic blood pressure 2022-08-16 21:29:00 117 mm[Hg] [facility] Diastolic blood pressure 2022-08-16 21:29:00 78 mm[Hg] [facility] Heart rate 2022-08-16 21:29:00 84 /min [facility] Body temperature 2022-08-16 21:29:00 36.94 Blanka [facility] Respiratory rate 2022-08-16 21:29:00 18 /min [facility] Body height 2022-08-16 21:29:00 154.9 cm [facility] Body weight 2022-08-16 21:29:00 55.475 kg [facility] BMI 2022-08-16 21:29:00 23.11 kg/m2 [facility] Systolic blood pressure 2022-08-12 20:22:00 115 mm[Hg] [facility] Diastolic blood pressure 2022-08-12 20:22:00 78 mm[Hg] [facility] Heart rate 2022-08-12 20:22:00 67 /min [facility] Body temperature 2022-08-12 20:22:00 36.78 Blanka [facility] Body height 2022-08-12 20:22:00 154.9 cm [facility] Body weight 2022-08-12 20:22:00 54.976 kg [facility] BMI 2022-08-12 20:22:00 22.90 kg/m2 [facility] Systolic blood pressure 2022-08-11 23:55:00 114 mm[Hg] [facility] Diastolic blood pressure 2022-08-11 23:55:00 69 mm[Hg] [facility] Heart rate 2022-08-11 23:55:00 67 /min [facility] Oxygen saturation in Arterial blood by Pulse oximetry 2022-08-11 23:55:00 100 /min [facility] Respiratory rate 2022-08-11 23:35:00 13 /min [facility] Body temperature 2022-08-11 23:04:00 36.39 Blanka [facility] Body height 2022-08-11 14:29:00 154.9 cm [facility] Body weight 2022-08-11 14:29:00 53.615 kg [facility] BMI 2022-08-11 14:29:00 22.33 kg/m2 [facility] Systolic blood pressure 2022-08-11 23:05:00 107 mm[Hg] [facility] Diastolic blood pressure 2022-08-11 23:05:00 65 mm[Hg] [facility] Heart rate 2022-08-11 23:05:00 88 /min [facility] Oxygen saturation in Arterial blood by Pulse oximetry 2022-08-11 23:05:00 96 /min [facility] Body temperature 2022-08-11 23:04:00 36.39 Blanka [facility] Respiratory rate 2022-08-11 21:27:00 16 /min [facility] Body height 2022-08-11 14:29:00 154.9 cm [facility] Body weight 2022-08-11 14:29:00 53.615 kg [facility] BMI 2022-08-11 14:29:00 22.33 kg/m2 [facility] Systolic blood pressure 2022-08-08 16:18:00 112 mm[Hg] [facility] Diastolic blood pressure 2022-08-08 16:18:00 74 mm[Hg] [facility] Heart rate 2022-08-08 16:18:00 76 /min [facility] Body temperature 2022-08-08 16:18:00 36.67 Blanka [facility] Respiratory rate 2022-08-08 16:18:00 16 /min [facility] Body height 2022-08-08 16:18:00 154.9 cm [facility] Body weight 2022-08-08 16:18:00 54.205 kg [facility] BMI 2022-08-08 16:18:00 22.58 kg/m2 [facility] Oxygen saturation in Arterial blood by Pulse oximetry 2022-08-08 16:18:00 98 /min [facility] Systolic blood pressure 2021-10-28 20:56:00 113 mm[Hg] [facility] Diastolic blood pressure 2021-10-28 20:56:00 75 mm[Hg] [facility] Heart rate 2021-10-28 20:56:00 92 /min [facility] Body temperature 2021-10-28 20:56:00 36.83 Blanka [facility] Respiratory rate 2021-10-28 20:56:00 18 /min [facility] Body height 2021-10-28 20:56:00 154.9 cm [facility] Body weight 2021-10-28 20:56:00 74.39 kg [facility] BMI 2021-10-28 20:56:00 30.99 kg/m2 [facility] Heart rate 2021-10-15 02:00:00 74 /min [facility] Oxygen saturation in Arterial blood by Pulse oximetry 2021-10-15 02:00:00 99 /min [facility] Systolic blood pressure 2021-10-15 01:15:00 111 mm[Hg] [facility] Diastolic blood pressure 2021-10-15 01:15:00 65 mm[Hg] [facility] Body temperature 2021-10-15 01:15:00 36.78 Blanka [facility] Respiratory rate 2021-10-15 01:15:00 18 /min [facility] Body weight 2021-10-15 00:49:00 68.04 kg [facility] Systolic blood pressure 2021-01-29 15:30:00 119 mm[Hg] [facility] Diastolic blood pressure 2021-01-29 15:30:00 81 mm[Hg] [facility] Heart rate 2021-01-29 15:30:00 65 /min [facility] Respiratory rate 2021-01-29 15:30:00 17 /min [facility] Oxygen saturation in Arterial blood by Pulse oximetry 2021-01-29 15:30:00 98 /min [facility] Body temperature 2021-01-29 14:10:00 37.06 Blanka [facility] Body weight 2021-01-29 14:10:00 68.04 kg [facility] Height Measured 2022-07-28 14:31:00 63.00 inches Body Temperature 2022-07-28 14:31:00 98.50 degrees Heart Rate 2022-07-28 14:31:00 77.00 /min Respiratory Rate 2022-07-28 14:31:00 BP Systolic 2022-07-28 14:31:00 106 mm[Hg] BP Diastolic 2022-07-28 14:31:00 74 mm[Hg] Weight Measured 2022-07-28 14:31:00 122.60 pounds Procedures Procedure Date / Time Performed Performing Clinician Source EXTERNAL PROVIDER RECORDS 2022-08-15 05:01:00 Do ctor Unassigned, [place] [facility] PELVIS LIMITED 2022-08-11 22:51:00 Adum, Lisset Leyva [facility] DILATION AND CURETTAGE 2022-08-11 21:47:00 Adum, Roque Longoria [facility] COVID-19 (ID NOW RAPID TESTING) 2022-08-11 20:13:00 Juany Burk [facility] COVID-19 (ID NOW RAPID TESTING) 2022-08-11 20:13:00 Juany Burk [facility] LAB ONLY COVID INTERPRETATION 2022-08-11 20:13:00 Juany Burk [facility] FIRST TRIMESTER LESS THAN 14 WEEKS WITH TRANSVAGINAL 2022-08-11 17:58:08 Kia Dailey [facility] FIRST TRIMESTER LESS THAN 14 WEEKS WITH TRANSVAGINAL 2022-08-11 17:58:08 Kia Dailey [facility] ABORH CONFIRMATION (LAB ONLY) 2022-08-11 16:12:00 Kia Dailey [facility] ABORH CONFIRMATION (LAB ONLY) 2022-08-11 16:12:00 Kia Dailey [facility] HB ABO GROUPING 2022-08-11 14:48:00 [facility] 2022-08-11 14:48:00 [facility] LIPASE 2022-08-11 14:42:00 Kia Dailey [facility] MAGNESIUM 2022-08-11 14:42:[address] [facility] COMP. METABOLIC PANEL (75357) 2022-08-11 14:42:00 Kia Dailey [facility] TOTAL BETA HCG ASSAY 2022-08-11 14:42:00 Ned Burk [facility] CBC WITH DIFF 2022-08-11 14:42:00 Kia Dailey [facility] URINALYSIS 2022-08-11 14:42:00 [facility] 2022-08-11 14:42:[address] [facility] MAGNESIUM 2022-08-11 14:42:[address] [facility] COMP. METABOLIC PANEL (29304) 2022-08-11 14:42:00 Kia Dailey Kimmy [facility] TOTAL BETA HCG ASSAY 2022-08-11 14:42:00 Ned Burk [facility] CBC WITH DIFF 2022-08-11 14:42:00 Kia Dailey [facility] URINALYSIS 2022-08-11 14:42:00 Juany Burk Un [facility] CONSENT/REFUSAL FOR DIAGNOSIS AND TREATMENT 2022-08-11 14:23:47 Doctor Unassigned, [place] [facility] CONSENT/REFUSAL FOR DIAGNOSIS AND TREATMENT 2022-08-11 14:23:47 Doctor Unassigned, [place] [facility] FIRST TRIMESTER LESS THAN 14 WEEKS WITH TRANSVAGINAL 2022-08-09 19:12:00 Arlyn Garber [facility] POCT TEST 2022-08-08 00:00:00 Mare Garber [facility] DSU PRE-OP 2021-10-28 06:01:00 Doctor Unass igned, [place] [facility] POCT URINALYSIS W/O SPECIFIC GRAVITY 2021-10-28 00:00:00 Lisset Calhoun [facility] CONSENT/REFUSAL FOR DIAGNOSIS AND TREATMENT 2021-10-15 00:42:20 Doctor Unassigned, [place] [facility] POCT TEST 2021-01-29 16:14:00 Cayetano Lowery [facility] URINALYSIS 2021-01-29 16:11:00 José Miguel Lwoery [facility] COMP. METABOLIC PANEL (23643) 2021-01-29 14:24:00 José Miguel Lowery [facility] CBC WITH DIFF 2021-01-29 14:24:00 José Miguel Lowery [facility] NOTICE OF PRIVACY PRACTICES 2021-01-29 13:58:25 Doctor Unassigned, [place] [facility] NOTICE OF PRIVACY PRACTICES 2021-01-29 13:58:11 Doctor Unassigned, [place] [facility] Plan of Care Planned Activity Planned Date Details Comments Source Goal Plan of Care Note [code = 93600-8] Goal Plan of Care Note [code = 10803-6] Goal Plan of Care Note [code = 15301-1] Goal Plan of Care Note [code = 66156-3] Goal Plan of Care Note [code = 15308-2] Goal Plan of Care Note [code = 91436-2] Goal Plan of Care Note [code = 28323-1] Encounters Start Date/Time End Date/Time Encounter Type Admission Type Attending [facility] Facility Care Department Encounter ID Source 2023-09-20 00:00:00 2023-09-20 00:00:00 Outpatient GC_GCBZW_Ka diyala_S PRIV PRIV [id number] [facility] 2023-09-19 00:00:00 2023-09-19 00:00:00 Outpatient GC_GCBZW_Ka diyala_S PRIV PRIV [id number] [facility] 2023-08-14 15:26:56 2023-08-14 15:26:56 Outpatient SFA SFA 0925 Wai Carrion Danny 2023-07-21 15:42:22 2023-07-21 15:42:22 Outpatient SFA SFA [id number] Wai Carrion Danny 2023-07-13 15:21:32 2023-07-13 15:21:32 Outpatient SFA SFA [id number] Wai Carrion Danny 2023-04-24 15:32:18 2023-04-24 15:32:18 Outpatient SFA SFA [id number] Wai F Danny 2023-04-20 17:05:18 2023-04-20 17:05:18 Outpatient SFA SFA [id number] Wai Delgado 2023-03-06 13:30:00 2023-03-06 13:30:00 Outpatient R ARLYN GARBER [facility] [id number] [facility] 2022-09-05 15:00:00 2022-09-05 15:40:27 Outpatient R ARLYN GARBER [facility]ERYAL [facility] [id number] [facility] 2022-09-05 15:00:00 2022-09-05 15:40:27 Office Visit Arlyn Garber [facility] 1.840.114 350.1.13.10 4.2.7.2.686 [id number] 134 [id number] [facility] 2022-09-03 00:00:00 2022-09-03 00:00:00 Nurse Triage Arlen Madden [facility] 1.840.114 350.1.13.10 4.2.7.2.686 [id number] [facility] 2022-08-31 12:45:00 2022-08-31 13:00:00 Judge Clerk Visit Barrie, [facility] Main Arlyn Garber [facility] 1.2840.114 350.1.13.10 4.2.7.2.686 [id number] [facility] 2022-08-31 12:45:00 2022-08-31 12:45:00 Outpatient R ARLYN GARBER [facility] [id number] [facility] 2022-08-31 00:00:00 2022-08-31 00:00:00 Case Management Arlyn Garber [facility] 1.2840.114 350.1.13.10 4.2.7.2.686 [id number] [facility] 2022-08-16 16:30:00 2022-08-16 16:59:16 Outpatient R ARLYN GARBER [facility] [id number] [facility] 2022-08-16 16:30:00 2022-08-16 16:59:16 [facility] 1.2840.114 350.1.13.10 4.2.7.2.686 [id number] [facility] 2022-08-15 14:00:00 2022-08-15 14:00:00 Outpatient R [facility] [id number] [facility] 2022-08-15 00:00:00 2022-08-15 00:00:00 Orders Only Doctor Unassigned, [place] [facility] 1.2840.114 350.1.13.10 4.2.7.2.686 [id number] [facility] 2022-08-13 00:00:00 2022-08-13 00:00:00 Nurse Triage Mitchell Acevedo [facility] 1.20.114 350.1.13.10 4.2.7.2.686 [id number] [facility] 2022-08-12 15:15:00 2022-08-12 15:59:51 Outpatient R ARLYN GARBER [facility] [id number] [facility] 2022-08-12 15:15:00 2022-08-12 15:59:51 [facility] 1.2.114 350.1.13.10 4.2.7.2.686 [id number] [facility] 2022-08-11 09:31:00 2022-08-11 19:05:00 Outpatient X LISSET CALHOUN [facility] ARAVIND [id number] [facility] 2022-08-11 09:31:00 2022-08-11 19:05:00 Emergency AshlieKia leyvaLisset Jin [facility] 1.2.840.114 350.1.13.10 4.2.7.2.686 [id number] [facility] 2022-08-11 16:45:00 2022-08-11 18:06:00 Surgery Lisset Calhoun [facility] 1.2.840.114 350.1.13.10 4.2.7.2.686 [id number] [facility] 2022-08-11 17:03:00 2022-08-11 18:00:00 Anesthesia Event Roger Dunlap Cherelle [facility] 1.2.840.114 350.1.13.10 4.2.7.2.686 [id number] [facility] 2022-08-11 00:00:00 2022-08-11 00:00:00 Telephone Arlyn Garber [facility] 1.2.840.114 350.1.13.10 4.2.7.2.686 [id number] 134 [id number] [facility] 2022-08-10 07:03:00 2022-08-10 11:45:00 Emergency Lorenzo Kelly [facility] DAMIAN [id number] [facility] [place] 2022-08-09 13:30:00 2022-08-09 23:59:00 Outpatient R ARLYN GARBER [facility] [id number] [facility] 2022-08-09 13:30:00 2022-08-09 23:59:00 Hospital Encounter Arlyn Garber [facility] 1.2.840.114 350.1.13.10 4.2.7.2.686 [id number] [facility] 2022-08-09 00:00:00 2022-08-09 00:00:00 [facility] 1.2.840.114 350.1.13.10 4.2.7.2.686 [id number] 134 [id number] [facility] 2022-08-09 00:00:00 2022-08-09 00:00:00 Telephone Viki [facility] 1.2.840.114 350.1.13.10 4.2.7.2.686 [id number] [facility] 2022-08-08 11:00:00 2022-08-08 11:37:42 Outpatient R ARLYN GARBER [facility] [id number] [facility] 2022-08-08 11:00:00 2022-08-08 11:37:42 Initial Visit Viki [facility] 1.2.840.114 350.1.13.10 4.2.7.2.686 [id number] 134 [id number] [facility] 2022-08-08 00:00:00 2022-08-08 00:00:00 Patient Secure Msg [facility] 1.2.840.114 350.1.13.10 4.2.7.2.686 [id number] [facility] 2022-08-05 09:30:00 2022-08-05 09:30:00 Outpatient R ARLYN GARBER [facility] [id number] [facility] 2022-07-28 00:00:00 2022-07-28 00:00:00 Outpatient Visit [id number] 2021-11-25 16:00:00 2021-11-25 16:00:00 Outpatient R FOXGUANAKITO [facility] [id number] [facility] 2021-11-11 15:45:00 2021-11-11 15:45:00 Outpatient R SIERRA FOXEN [facility] [id number] [facility] 2021-11-03 16:40:00 2021-11-03 16:40:00 Outpatient R ALEX MERCHANT [facility] [id number] [facility] 2021-10-28 14:39:23 2021-10-28 16:29:30 Initial Visit Guanakito Fox Vivian L [facility] 1..840.114 350.1.13.10 4.2.7.2.686 [id number] [facility] 2021-10-28 14:30:00 2021-10-28 16:29:30 Outpatient Kathe JANESSALISSET [facility] [id number] [facility] 2021-10-28 00:00:00 2021-10-28 00:00:00 Orders Only Doctor Unassigned, [place] [facility] 1..840.114 350.1.13.10 4.2.7.2.686 [id number] [facility] 2021-10-14 18:50:00 2021-10-14 20:22:00 Outpatient X GUANAKITO FOX [facility] ARAVIND [id number] [facility] 2021-10-14 18:50:00 2021-10-14 20:22:00 Emergency Guanakito Fox [facility] 1.840.114 350.1.13.10 4.2.7.2.686 [id number] [facility] 2021-01-29 08:04:00 2021-01-29 11:39:00 Emergency José Miguel Lowery [facility] 1.2.840.114 350.1.13.10 4.2.7.2.686 [id number] [facility] 2021-01-29 08:04:00 2021-01-29 08:04:00 Emergency X JOSÉ MIGUEL LOWERY [facility] ERT [id number] [facility] Results Test Description Test Time Test Comments Results Result Co mments Source [facility] Only[facility]2022-08-11 17:32:45* Test Item Value Reference Range Interpretation Comme nts ABO & RH (test code = 20) O Positive Performed at [facility] B Laboratory Services - [facility] Blood [address] [place] [address]Pyrk Free: [phone] No. [id number] [facility] (QUANTITATIVE)2022-08-11 16:07:11* Test Item Value Reference Range Interpretation Comme nts BETA HCG (test code = 3467910643) See_Comment [Automated [employer]] The system which generated this result transmitted reference range: Non- female and male patients: <5 mIU/mL. The reference range was not used to interpret this result as normal/abnormal. TRUNG (test code = TRUNG) Gestational Age ?Range (mIU/mL) 1-10 ?Weeks ?97-68059099-29 Weeks ?27091-76463493-85 Weeks ?0075-54665055-78 Weeks ?3714-741294 Biotin has been reported to cause a negative bias, interpret results relative to patient's use of biotin. [facility] (QUANTITATIVE)2022-08-11 16:07:11* Test Item Value Reference Range Interpretation Comme nts BETA HCG (test code = 9110319269) See_Comment [Automated [employer] ge] The system which generated this result transmitted reference range: Non- female and male patients: <5 mIU/mL. The reference range was not used to interpret this result as normal/abnormal. TRUNG (test code = TRUNG) Gestational Age ?Range (mIU/mL) 1-10 ?Weeks ?78-88286200-21 Weeks ?97358-19316831-84 Weeks ?7126-66644159-25 Weeks ?5232-716392 Biotin has been reported to cause a negative bias, interpret results relative to patient's use of biotin. [facility] [place] [facility] - ONCE [id number] 15:46:54 * Test Item Value Reference Range Interpretation Comme nts ABO & RH (test code = 20) O Positive Performed at [facility] Laboratory [facility] Blood [address] Free: [phone] No. [id number] IAT (test code = 1185) Negative Performed at [facility] Blood [address] Free: [phone] No. [id number] [facility] [place] [facility] - ONCE [id number] 15:46:54 * Test Item Value Reference Range Interpretation Comme nts ABO & RH (test code = 20) O Positive Performed at [facility] Blood [address] Free: [phone] No. [id number] IAT (test code = 1185) Negative Performed at [facility] Blood [place] [address]Toll Free: [phone] No. [id number] [facility]. METABOLIC PANEL (30142)2022-08-11 15:22:15* Test Item Value Reference Range Interpretation Comme nts NA (test code = 8047849715) 138 mmol/L 135-145 K (test code = 2764177906) 3.8 mmol/L 3.5-5 CL (test code = 4645380258) 104 mmol/L 98-108 CO2 TOTAL (test code = 7621256044) 23 mmol/L 23-31 AGAP (test code = 3397918021) 2-16 BUN (test code = 0062605477) 11 mg/dL 7-23 GLUCOSE (test code = 2966318090) 109 mg/dL 70-110 CREATININE (test code = 1853329976) 0.62 mg/dL 0.5-1.04 TOTAL BILI (test code = 7040286903) 1.0 mg/dL 0.1-1.1 CALCIUM (test code = 5800929844) 9.6 mg/dL 8.6-10.6 T PROTEIN (test code = 4231935843) 6.7 g/dL 6.3-8.2 ALBUMIN (test code = 8379472366) 4.4 g/dL 3.5-5 ALK PHOS (test code = 8137356858) 37 U/L 34-122 ALTv (test code = 1742-6) 80 U/L 5-35 H AST(SGOT) (test code = 4091719474) 98 U/L 13-40 H eGFR (test code = 1610067998) mL/min/1.73m2 TRUNG (test code = TRUNG) Association of [...] or abnormalities in imaging tests). Lab Interpretation (test code = 78232-9) Abnormal [facility] [place] [facility]2022-[facility]-22 15:22:15* Test Item Value Reference Range Interpretation Comme nts MAGNESIUM (test code = 2638188457) 2.0 mg/dL 1.7-2.4 Lab Interpretation (test cod e = 63841-5) Normal [facility] [place] [facility] METABOLIC PANEL (74555)2022-08-11 15:22:15* Test Item Value Reference Range Interpretation Comme nts NA (test code = 9728349221) 138 mmol/L 135-145 K (test code = 5332395060) 3.8 mmol/L 3.5-5 CL (test code = 5560535997) 104 mmol/L 98-108 CO2 TOTAL (test code = 2462458050) 23 mmol/L 23-31 AGAP (test code = 9146957704) 2-16 BUN (test code = 7675524188) 11 mg/dL 7-23 GLUCOSE (test code = 3463455042) 109 mg/dL 70-110 CREATININE (test code = 5446934154) 0.62 mg/dL 0.5-1.04 TOTAL BILI (test code = 6988055501) 1.0 mg/dL 0.1-1.1 CALCIUM (test code = 3106163166) 9.6 mg/dL 8.6-10.6 T PROTEIN (test code = 9287467308) 6.7 g/dL 6.3-8.2 ALBUMIN (test code = 7803722679) 4.4 g/dL 3.5-5 ALK PHOS (test code = 5461998325) 37 U/L 34-122 ALTv (test code = 1742-6) 80 U/L 5-35 H AST(SGOT) (test code = 8648567257) 98 U/L 13-40 H eGFR (test code = 0506108940) mL/min/1.73m2 TRUNG (test code = TRUNG) Association of [...] or abnormalities in imaging tests). Lab Interpretation (test code = 80142-6) Abnormal [facility] [place] [facility]2022-[facility]-22 15:22:15* Test Item Value Reference Range Interpretation Comme nts MAGNESIUM (test code = 0745802390) 2.0 mg/dL 1.7-2.4 Lab Interpretation (test cod e = 35126-1) Normal [facility] [place] [facility]2022-[facility]-22 15:21:55* Test Item Value Reference Range Interpretation Comme nts LIPASE (test code = 4514962444) 51 U/L 0-220 Lab Interpretation (test cod e = 38170-0) Normal [facility] [place] [facility]2022-[facility]-22 15:21:55* Test Item Value Reference Range Interpretation Comme nts LIPASE (test code = 4584892662) 51 U/L 0-220 Lab Interpretation (test cod e = 80911-5) Normal [facility] WITH [id number] 15:04:09* Test Item Value Reference Range Interpretation Comme nts WBC (test code = 6690-2) See_Comment H [Automated messa ge] The system which generated this result transmitted reference range: 4.30 - 11.10 10*3/?L. The reference range was not used to interpret this result as normal/abnormal. RBC (test code = 789-8) See_Comment [Automated messa ge] The system which generated this result transmitted reference range: 3.93 - 5.25 10*6/?L. The reference range was not used to interpret this result as normal/abnormal. HGB (test code = 718-7) 12.3 g/dL 11.6-15 HCT (test code = 4544-3) 35.0 % 35.7-45.2 L MCV (test code = 787-2) 86.8 fL 80.6-95.5 MCH (test code = 785-6) 30.5 pg 25.9-32.8 MCHC (test code = 786-4) 35.1 g/dL 31.6-35.1 RDW-SD (test code = 48618-3) 42.2 fL 39-49.9 RDW-CV (test code = 788-0) 13.5 % 12-15.5 PLT (test code = 777-3) See_Comment H [Automated messa ge] The system which generated this result transmitted reference range: 166 - 358 10*3/?L. The reference range was not used to interpret this result as normal/abnormal. MPV (test code = 19511-1) 10.1 fL 9.5-12.9 NRBC/100 WBC (test code = 0604644681) See_Comment [Automated me ssage] The system which generated this result transmitted reference range: 0.0 - 10.0 /100 WBCs. The reference range was not used to interpret this result as normal/abnormal. NRBC x10^3 (test code = 7760167378) See_Comment [Automated messa ge] The system which generated this result transmitted reference range: 10*3/?L. The reference range was not used to interpret this result as normal/abnormal. GRAN MAT (NEUT) % (test code = 770-8) 77.4 % IMM GRAN % (test code = 6012574696) 0.40 % LYMPH % (test code = 736-9) 14.9 % MONO % (test code = 5905-5) 6.8 % EOS % (test code = 713-8) 0.3 % BASO % (test code = 706-2) 0.2 % GRAN MAT x10^3(ANC) (test code = 7077637197) 8.79 10*3/uL 1.88-7.09 H IMM GRAN x10^3 (test code = 1144801900) 0.04 10*3/uL 0-0.06 LYMPH x10^3 (test code = 731-0) 1.69 10*3/uL 1.32-3.29 MONO x10^3 (test code = 742-7) 0.77 10*3/uL 0.33-0.92 EOS x10^3 (test code = 711-2) 0.03 10*3/uL 0.03-0.39 BASO x10^3 (test code = 704-7) 0.01-0.07 Lab Interpretation (test code = 61333-5) Abnormal [facility] WITH [id number] 15:04:09* Test Item Value Reference Range Interpretation Comme nts WBC (test code = 6690-2) See_Comment H [Automated messa ge] The system which generated this result transmitted reference range: 4.30 - 11.10 10*3/?L. The reference range was not used to interpret this result as normal/abnormal. RBC (test code = 789-8) See_Comment [Automated messa ge] The system which generated this result transmitted reference range: 3.93 - 5.25 10*6/?L. The reference range was not used to interpret this result as normal/abnormal. HGB (test code = 718-7) 12.3 g/dL 11.6-15 HCT (test code = 4544-3) 35.0 % 35.7-45.2 L MCV (test code = 787-2) 86.8 fL 80.6-95.5 MCH (test code = 785-6) 30.5 pg 25.9-32.8 MCHC (test code = 786-4) 35.1 g/dL 31.6-35.1 RDW-SD (test code = 46937-6) 42.2 fL 39-49.9 RDW-CV (test code = 788-0) 13.5 % 12-15.5 PLT (test code = 777-3) See_Comment H [Automated messa ge] The system which generated this result transmitted reference range: 166 - 358 10*3/?L. The reference range was not used to interpret this result as normal/abnormal. MPV (test code = 15176-0) 10.1 fL 9.5-12.9 NRBC/100 WBC (test code = 8177627571) See_Comment [Automated [employer] ssage] The system which generated this result transmitted reference range: 0.0 - 10.0 /100 WBCs. The reference range was not used to interpret this result as normal/abnormal. NRBC x10^3 (test code = 6006540879) See_Comment [Automated messa ge] The system which generated this result transmitted reference range: 10*3/?L. The reference range was not used to interpret this result as normal/abnormal. GRAN MAT (NEUT) % (test code = 770-8) 77.4 % IMM GRAN % (test code = 3658592224) 0.40 % LYMPH % (test code = 736-9) 14.9 % MONO % (test code = 5905-5) 6.8 % EOS % (test code = 713-8) 0.3 % BASO % (test code = 706-2) 0.2 % GRAN MAT x10^3(ANC) (test code = 8641547892) 8.79 10*3/uL 1.88-7.09 H IMM GRAN x10^3 (test code = 2035791834) 0.04 10*3/uL 0-0.06 LYMPH x10^3 (test code = 731-0) 1.69 10*3/uL 1.32-3.29 MONO x10^3 (test code = 742-7) 0.77 10*3/uL 0.33-0.92 EOS x10^3 (test code = 711-2) 0.03 10*3/uL 0.03-0.39 BASO x10^3 (test code = 704-7) 0.01-0.07 Lab Interpretation (test code = 95478-1) Abnormal [facility] [place] [facility] AB/PEL/SC [id number] 09:21:00 [facility] 1995 Sex: F Name: AISLINN BURK [facility] : 1995 Age/S: 26 / F [address] Unit #: [id number] Loc: [place] [address] Phys: Lorenzo Mcmahan DO Acct: [id number] Dis Date: Status: REG ER PHONE #: [phone] Exam Date: 08/10/2022907 FAX #: Reason: PREG, BLEEDING EXAMS: CPT: [id number] DUP AB/ PEL/SC COMP 40481 History: pain/bleeding Comparison: None at this time Location: [facility] Transabdominaland endovaginal sonography of the pelvis was performed. A single intrauterine is identified. The crown-rump length measures approximately 1.68 cm. No heartbeat is identified. There uri subchorionic hemorrhage, measuring 4.0 x 3.5 x 6.2 cm in dimensions. The right ovary measures 2.7x 1.6 x 2.0 cm in size. The [...] 1 Signed Report (CONTINUED) Name: AISLINN BURK [facility] : 1995 Age/S: 26 / F [address] Unit #: [id number] Loc: [place] [address] Phys: Lorenzo Mcmahan DO Acct: [id number] Dis Date: Status: REG ER PHONE #: [phone] Exam Date: 08/10/2022 09 FAX #: [place] son: PREG, BLEEDING EXAMS: CPT: [id number] DUP AB/PEL/SC COMP 44640 (Continued) CC: Leroy Cool MD; Lorenzo Mcmahan DO Technologist: Hallie Garcia [facility] Date/Time: 08/10/2022 (920) [email or web address] PAGE2 Signed Report Name: AISLINN BURK [facility] : 1995 Age/S: 26 / F [address] [facility] [place] Unit #: [id number] Loc: [place] [address] Phys: Lorenzo Mcmahan DO Acct: [id number] Dis Date: Status: REG ER PHONE #: [phone] Exam Date: 08/10/2022 0908 FAX #: Reason: PREG, BLEEDING EXAMS: CPT: [id number] DUP AB/PEL/SC COMP 50495 (Continued) Orig Print D/T: S: 08/10/2022 (924) Probe: PAGE 3 Signed Report- US PREG 1ST [id number] 09:21:00 [facility] 1995 Sex: F Name: AISLINN BURK : 1995 Age/S: 26 / F [address] [facility] Unit #: [id number] Loc: [place] [address] Phys: Lorenzo Mcmahan DO Acct: [id number] Dis Date: Status: REG ER PHONE #: [phone] Exam Date: 08/10/2022906 FAX #: Reason: pain/bleeding EXAMS: CPT: [id number] US PREG 1ST TRIMTR 80[address] History: pain/bleeding Comparison: None at this time Location: [facility] Transabdominal and endovaginal sonography of the pelvis was performed. A single intrauterine is identified. The crown-rump length measures approximately 1.68 cm. No heartbeat is identified. Thereis a subchorionic hemorrhage, measuring 4.0 x 3.5 [...] hemorrhage. at 0921 Reported and signed by: PaulM. Ilan M.D. PAGE 1 Signed Report (CONTINUED) Name: AISLINN BURK : 1995 Age/S: 26 / F [address] [facility] Unit #: [id number] Loc: [place] [address] Phys: Lorenzo Mcmahan DO Acct: [id number] Dis Date: Status: REG ER PHONE #: [phone] Exam Date: 08/10/2022 09 FAX #: Reason: pain/bleeding EXAMS: CPT: [id number] US PREG 1ST TRIMTR 15446 (Continued) CC: Lorenzo Payton Technologist: Hallie Garcia [facility] Date/Time: 08/10/2022 (920) [email or web address] PAGE 2 Signed Report Name: AISLINN BURK Schurz : 1995 Age/S: 26 / F [address] Unit #: [id number] Loc: [place] [address] Phys: Lorenzo Mcmahan DO Acct: [id number] Dis Date: Status: REG ER PHONE #: [phone] Exam Date: 08/10/2022 09 FAX #: Reason: pain/bleeding EXAMS: CPT: [id number] US PREG 1ST TRIMTR 36184 (Continued) Orig Print D/T: S: 08/10/2022 (924) Probe: PAGE 3 Signed Report- US TRANSVAGINAL NON [id number] 09:21:00 [facility] : 1995 Sex: F [facility]: [facility] 1995 Age/S: 26 / F [address] Unit #: [id number] Loc: [place] [address] Phys: Lorenzo Mcmahan DO Acct: [id number] Dis Date: Status: REG ER PHONE #: [phone] Exam Date: 08/10/202208 FAX #: Reason: pain/bleeding EXAMS: CPT: [id number] [place] [address] History: pain/bleeding Comparison: None at this time Location: H45 Transabdominal and endovaginal sonography of the pelvis was performed. A single intrauterine is identified. The crown-rump length measures approximately 1.68 cm. No heartbeat is identified. There is a subchorionic hemorrhage, measuring 4.0 x 3.5 x 6.2 cm in dimensions. The right ovary measures2.7 x 1.6 x 2.0 cm in size. [...] hemorrhage. at 0921 Reported and signed by: PaulM. Ilan M.D. PAGE 1 Signed Report (CONTINUED) Name: AISLINN BURK Schurz : 1995 Age/S: 26 / F [address] Unit #: [id number] Loc: [place] [address] Phys: Lorenzo Mcmahan DO Acct: [id number] Dis Date: Status: REG ER PHONE #: [phone] Exam Date: 08/10/202208 FAX #: Reason: pain/bleeding EXAMS: CPT: [id number] [place] [address] (Continued) CC: Lorenzo Mcmahan DO Technologist: Hallie Garcia Trnohb Date/Time: 08/10/2022 (09) Veronica PAGE 2 Signed Report Name: [facility] 1995 Age/S: 26 / F [address] Unit #: [id number] Loc: [place] [address] Phys: Lorenzo Mcmahan DO Acct: [id number] Dis Date: Status: REG ER PHONE #: [phone] Exam Date: 08/10/2022907 FAX #: Reason: pain/bleeding EXAMS: CPT: [id number] [place] [address] (Continued) Orig Print D/T: S: 08/10/2022 (0925) Probe: [id number] PAGE 3 Signed ReportHCG [id number] 08:39:00* Test Item Value Reference Range Interpretation Comme nts HCG SERUM (test code = HCG) 57874 mi-IU/ML 0-6 H 0 - 6 NOT PREGNA NT > 6 SUGGESTIVE OF EARLY RISES TWO FOLD EVERY 2 DAYS; SUGGEST RECONFIRMING AFTER 2 DAYS. 150,000-200,[address] TRIMESTER 10,000 - 50,000 2ND & 3RD TRIMESTER UA RFLX MICR CULT IF [id number] 08:26:00* Test Item Value Reference Range Interpretation Comme nts UA COLOR (test code = COLU) STRAW discript YEL/STRAW UA APPEARANCE (test code = APPU) TURBID discript CLEAR A UA GLUCOSE DIPSTICK (test code = DGLUU) NEGATIVE mg/dL NEG UA BILIRUBIN DIPSTICK (test code = BILU) NEGATIVE mg/dL NEG UA KETONE DIPSTICK (test code = KETU) 3+ mg/dL NEG A UA SPECIFIC GRAVITY (test code = SGU) >=1.030 SG 1.005-1.030 A UA BLOOD DIPSTICK (test code = VU) 3+ mg/DL NEG A UA PH DIPSTICK (test code = RIP) 6.0 pH UNITS 5.0-7.0 UA PROTEIN DIPSTICK (test code = PROU) 1+ mg/dL NEG A UA UROBILINIOGEN DIPSTICK (test code = URO) 0.2 mg/dL <2.0 UA NITRITE DIPSTICK (test code = VIVEK) NEGATIVE SCREEN NEG UA LEUKOCYTE ESTERASE DIPSTICK (test code = LEUU) NEGATIVE Leuk/mcL NEGATIVE UA CULTURE NEEDED? (test code = UACULT) NO, WBC<10 Criteria Culture CHK UA WBC (test code = WBCU) 0-1 #WBC/HPF 0-3 UA RBC (test code = RBCU) 0-1 #RBC/HPF 0-3 UA SQUAMOUS CELLS (test code = SQU) TRACE /HPF NONE UA AMORPHOUS SEDIMENT (test code = AMORU) 1+ NONE SEEN A Indication for culture: RiskForSepsis-no oth srcBASIC METABOLIC [id number] 08:10:00* Test Item Value Reference Range Interpretation Comme nts SODIUM (test code = NA) 137 mmol/L 134-147 N POTASSIUM (test code = K) 4.1 mmol/L 3.4-5.0 N CHLORIDE (test code = CL) 106 mmol/L 100-108 N CARBON DIOXIDE (test code = CO2) 21 mmol/L 21-32 N ANION GAP (test code = GAP) 10.0 GAP calc 4.0-15.0 N GLUCOSE (test code = GLU) 183 MG/DL 70-110 H BLOOD UREA NITROGEN (test code = BUN) 13 MG/DL 7-18 N GLOMERULAR FILTRATION RATE (test code = GFR) >=60 max estimate estGFR >60 CREATININE (test code = CREAT) 0.8 MG/DL 0.6-1.0 N CALCIUM (test code = CA) 10.0 MG/DL 8.5-10.1 N HEPATIC FUNCTION [id number] 08:10:00* Test Item Value Reference Range Interpretation Comme nts TOTAL PROTEIN (test code = PROT) 7.6 G/DL 6.4-8.2 N ALBUMIN (test code = ALB) 3.9 G/DL 3.4-5.0 N BILIRUBIN TOTAL (test code = BILT) 0.70 MG/DL 0.2-1.2 N BILIRUBIN DIRECT (test code = BILD) 0.20 MG/DL 0.00-0.30 N BILIRUBIN INDIRECT (test cod e = BILIND) 0.50 MG/DL 0.2-1.2 N SGOT/AST (test code = AST) 12 Unit/L 15-37 L SGPT/ALT (test code = ALT) 37 Unit/L 12-78 N ALKALINE PHOSPHATASE TOTAL ( test code = ALKP) 34 Unit/L 45-117 L [id number] 08:10:00* Test Item Value Reference Range Interpretation Comme nts LIPASE (test code = LIP) 29 Unit/L 114-286 L CBC W/AUTO [id number] 07:59:00* Test Item Value Reference Range Interpretation Comme nts WHITE BLOOD CELL (test code = WBC) 16.4 K/mm3 3.5-11.0 H RED BLOOD CELL (test code = RBC) 4.26 M/mm3 4.70-6.10 L HEMOGLOBIN (test code = HGB) 12.7 G/DL 10.4-14.9 N HEMATOCRIT (test code = HCT) 36.9 % 31.5-44.1 N MEAN CELL VOLUME (test code = MCV) 86.6 Fl 84.5-98.6 N MEAN CELL HGB (test code = MCH) 29.8 pg 27.0-34.2 N MEAN CELL HGB CONCETRATION (test code = MCHC) 34.4 G/DL 31.5-34.0 H RED CELL DISTRIBUTION WIDTH (test code = RDW) 13.5 SD 11.5-14.5 N PLATELET COUNT (test code = PLT) 352 K/mm3 150-450 N MEAN PLATELET VOLUME (test c ode = MPV) 10.10 fL 7.0-10.5 N NEUTROPHIL % (test code = NT%) 94.6 % 40-76 H IMMATURE GRANULOCYTE % (test code = IG%) 0.4 % 0.0-5.0 N LYMPHOCYTE % (test code = LY%) 3.9 % 20.5-51.1 L MONOCYTE % (test code = MO%) 1.0 % 1.7-9.3 L EOSINOPHIL % (test code = EO%) 0.0 % 0.0-6.0 N BASOPHIL % (test code = BA%) 0.1 % 0.0-2.0 N NUCLEATED RBC % (test code = NRBC%) 0.0 /100WBC% 0.0-1.0 N NEUTROPHIL # (test code = NT#) 15.5 K/mm3 1.8-7.6 H IMMATURE GRANULOCYTE # (test code = IG#) 0.06 x10 3/uL 0.00-0.03 H LYMPHOCYTE # (test code = LY#) 0.6 K/mm3 0.6-3.2 N MONOCYTE # (test code = MO#) 0.2 K/mm3 0.3-1.1 L EOSINOPHIL # (test code = EO#) 0.0 K/mm3 0.0-0.4 N BASOPHIL # (test code = BA#) 0.0 K/mm3 0.0-0.1 N NUCLEATED RBC # (test code = NRBC#) 0.0 K/mm3 0.0-0.1 N MANUAL DIFF REQUIRED (test c ode = MDIFF) NO DIFF/SCN CRITERIA POCT [id number] 16:30:00* Test Item Value Reference Range Interpretation Comme nts POCT PREG (test code = 1605) Positive On board controls acceptable with C Line (test code = 3574) Yes POCT PREG LOT # (test code = 3575) POCT PREG TEST DATE ( test code = 3576) [facility], [id number] 09:51:52SPECIMEN NUMBER: [id number] CULTURE, URINE SPECIMEN NUMBER: [id number] SPECIMEN COMMENT: URINE SOURCE: URINE REPORT STATUS: FINAL FINAL REPORT: 07/30/2022 10-50,000 CFU/ML UROGENITAL YANNI PRESENT NO COMMON PATHOGENSCBC W/AUTO DIFF WITH [id number] 08:02:01* Test Item Value Reference Range Interpretation Comme nts WBC (test code = 1001) 7.5 K/UL 3.5-11.0 RBC (test code = 1002) 4.04 M/UL 3.80-5.40 HEMOGLOBIN (test code = 1003) 12.1 G/DL 11.5-15.5 HEMATOCRIT (test code = 1004) 36.7 % 34.0-45.0 MCV (test code = 1005) 90.8 fL 80.0-99.0 MCH (test code = 1006) 30.0 PG 25.0-33.0 MCHC (test code = 1007) 33.0 G/DL 31.0-36.0 RDW (test code = 1038) 13.7 % 11.5-15.0 NEUTROPHILS (test code = 1008) 63.5 % LYMPHOCYTES (test code = 1010) 26.2 % MONOCYTES (test code = 1011) 7.8 % EOSINOPHILS (test code = 1012) 2.0 % BASOPHILS (test code = 1013) 0.1 % IMMATURE GRANULOCYTES (test code = 1036) 0.4 % NUCLEATED RBCS (test code = 1065) 0.0 /100 WBC'S See_Comment [Automated messa ge] The system which generated this result transmitted reference range: 0.0. The reference range was not used to interpret this result as normal/abnormal. PLATELET COUNT (test code = 1015) 251 K/UL 130-400 ABSOLUTE NEUTROPHILS (test code = 1066) 4.78 K/UL 1.50-7.50 ABSOLUTE LYMPHOCYTES (test code = 1067) 1.97 K/UL 1.00-4.00 ABSOLUTE MONOCYTES (test code = 1068) 0.59 K/UL 0.20-1.00 ABSOLUTE EOSINOPHILS (test code = 1040) 0.15 K/UL 0.00-0.50 ABSOLUTE BASOPHILS (test code = 1069) 0.01 K/UL 0.00-0.20 ABS IMMATURE GRANULOCYTES (test code = 1020) 0.03 K/UL 0.00-0.10 ABS NUCLEATED RBCS (test code = 82679) 0.00 K/UL 0.00-0.11 HCG, [id number] 06:09:47* Test Item Value Reference Range Interpretation Comme nts HCG, QUANTITATIVE (test code = 2506) [address]4380 MIU/ML SEE BELOW EXPEC ARTURO VALUES FOR HCG GST.AGE UNITS RANGE GST. AGE UNITS RANGE3 WEEKS MIU/ML 6-71 10 WEEKS MIU/ML 46,509-186,9774 WEEKS MIU/ML 10-750 12 WEEKS MIU/ML 27,832-210,6125 WEEKS MIU/ML 217-7,138 14 WEEKS MIU/ML 13,950-62,5306 WEEKS MIU/ML 158-31,795 15 WEEKS MIU/ML 12,039-70,9717 WEEKS MIU/ML 3,697-163,563 16 WEEKS MIU/ML 9,040-56,4518 WEEKS MIU/ML 32,065-149,571 17 WEEKS MIU/ML 8,175-55,8689 WEEKS MIU/ML 63,803-151,410 18 WEEKS MIU/ML 8,099-58,176MALES and NON- FEMALES . . . . . . . . MIU/ML 3-6YQAI-IGQZTBUXCD FEMALES . . . . . . . . . . . . MIU/ML <=7 UNLESS OTHERWISE INDICATED, ALL TESTING PERFORMED [facility] [address] [place] [id number] IMAGE EDITOR: SHIRA SUE M.D. IA NUMBER [id number] [facility] [place]. [id number] POCT URINALYSIS W/O SPECIFIC [id number] 21:04:00* Test Item Value Reference Range Interpretation Comme nts POCT PH U (test code = 3254) N/A 5-8 POCT U LEUK EST (test code = 3263) N/A Negative - Negative POCT U NIT (test code = 3262) N/A Negative - Negati ve POCT U PROT (test code = 3259) Negative Negative - Negat brennon POCT U GLU (test code = 3256) Negative Negative - Negati ve POCT U KETONE (test code = 3258) N/A Negative - Neg ative POCT U BLD (test code = 3257) N/A Negative - Negati ve [facility]21-[facility] 16:50:35* Test Item Value Reference Range Interpretation Comme nts APPEARANCE (test code = 2887411150) Hazy Clear A COLOR (test code = 5149826621) Yellow Yellow PH (test code = 1829810042) 4.8-8.0 SP GRAVITY (test code = 2519745909) 1.003-1.030 GLU U QUAL (test code = 4755504141) Normal Normal BLOOD (test code = 8146269462) Negative Negative KETONES (test code = 4500742367) 20 mg/dL Negative A PROTEIN (test code = 2887-8) Negative Negative UROBILIN (test code = 3996618855) 2.0 mg/dL Normal A BILIRUBIN (test code = 7197434855) Negative Negative NITRITE (test code = 8149816179) Negative Negative LEUK KASHMIR (test code = 2252286542) 25/uL Negative A RBC/HPF (test code = 2711193595) See_Comment [Automated [employer] ge] The system which generated this result transmitted reference range: 0 - 3 HPF. The reference range was not used to interpret this result as normal/abnormal. WBC/HPF (test code = 7649585613) See_Comment H [Automated messa ge] The system which generated this result transmitted reference range: 0 - 5 HPF. The reference range was not used to interpret this result as normal/abnormal. BACTERIA (test code = 1653616421) Moderate Negative A MUCOUS (test code = 6215695985) Marked Negative LPF A SQ EPITH (test code = 5181271910) HPF Lab Interpretation (test code = 08651-1) Abnormal [facility] [id number] 16:14:00* Test Item Value Reference Range Interpretation Comme nts POCT PREG (test code = 1605) negative On board controls acceptable with C Line (test code = 3574) present POCT PREG LOT # (test code = 3575) [id number] POCT PREG TEST DATE ( test code = 3576) 2022-09-19 Lab Interpretation (test cod e = 33484-8) Normal [facility]. METABOLIC PANEL (09630)2021-01-29 15:11:52* Test Item Value Reference Range Interpretation Comme nts NA (test code = 5309441119) 143 mmol/L 135-145 K (test code = 1177768429) 3.2 mmol/L 3.5-5.0 L CL (test code = 1150601570) 102 mmol/L 98-108 CO2 TOTAL (test code = 8259806982) 30 mmol/L 23-31 AGAP (test code = 1316515111) 2-16 BUN (test code = 8209056245) 15 mg/dL 7-23 GLUCOSE (test code = 8944020023) 106 mg/dL 70-110 CREATININE (test code = 3128815490) 0.81 mg/dL 0.50-1.04 TOTAL BILI (test code = 9129554231) 0.9 mg/dL 0.1-1.1 CALCIUM (test code = 0067096570) 9.6 mg/dL 8.6-10.6 T PROTEIN (test code = 4353608964) 7.4 g/dL 6.3-8.2 ALBUMIN (test code = 1790657866) 4.7 g/dL 3.5-5.0 ALK PHOS (test code = 8706960339) 37 U/L 34-122 ALTv (test code = 1742-6) 39 U/L 5-35 H AST(SGOT) (test code = 2542549912) 75 U/L 13-40 H eGFR Calculation (Non-) (test code = 3947383929) mL/min/1.73m2 eGFR Calculation () (test code = 0633401632) mL/min/1.73m2 TRUNG (test code = TRUNG) Association of [...] or abnormalities in imaging tests). Lab Interpretation (test code = 24043-3) Abnormal [facility] WITH [id number] 14:36:28* Test Item Value Reference Range Interpretation Comme nts WBC (test code = 6690-2) See_Comment [Automated [employer]] The system which generated this result transmitted reference range: 4.30 - 11.10 10*3/?L. The reference range was not used to interpret this result as normal/abnormal. RBC (test code = 789-8) See_Comment [Automated [employer]] The system which generated this result transmitted reference range: 3.93 - 5.25 10*6/?L. The reference range was not used to interpret this result as normal/abnormal. HGB (test code = 718-7) 14.3 g/dL 11.6-15.0 HCT (test code = 4544-3) 41.1 % 35.7-45.2 MCV (test code = 787-2) 84.7 fL 80.6-95.5 MCH (test code = 785-6) 29.5 pg 25.9-32.8 MCHC (test code = 786-4) 34.8 g/dL 31.6-35.1 RDW-SD (test code = 23231-3) 39.2 fL 39.0-49.9 RDW-CV (test code = 788-0) 12.9 % 12.0-15.5 PLT (test code = 777-3) See_Comment [[employer]] The system which generated this result transmitted reference range: 166 - 358 10*3/?L. The reference range was not used to interpret this result as normal/abnormal. MPV (test code = 05286-7) 10.5 fL 9.5-12.9 NRBC/100 WBC (test code = 2131084987) See_Comment [Automated [employer]] The system which generated this result transmitted reference range: 0.0 - 10.0 /100 WBCs. The reference range was not used to interpret this result as normal/abnormal. NRBC x10^3 (test code = 8889308858) <0.01 See_Comment [Automated [employer]] The system which generated this result transmitted reference range: 10*3/?L. The reference range was not used to interpret this result as normal/abnormal. GRAN MAT (NEUT) % (test code = 770-8) 71.8 % IMM GRAN % (test code = 1396422482) 0.40 % LYMPH % (test code = 736-9) 18.5 % MONO % (test code = 5905-5) 7.8 % EOS % (test code = 713-8) 1.2 % BASO % (test code = 706-2) 0.3 % GRAN MAT x10^3(ANC) (test code = 4879913186) 6.81 10*3/uL 1.88-7.09 IMM GRAN x10^3 (test code = 1029105516) 0.04 10*3/uL 0.00-0.06 LYMPH x10^3 (test code = 731-0) 1.76 10*3/uL 1.32-3.29 MONO x10^3 (test code = 742-7) 0.74 10*3/uL 0.33-0.92 EOS x10^3 (test code = 711-2) 0.11 10*3/uL 0.03-0.39 BASO x10^3 (test code = 704-7) 0.03 10*3/uL 0.01-0.07 [facility] (COVID-19) by RT-PCR (HIGH RISK) 2021-01-26 00:00:00* Test Item Value Reference Range Interpretation Comme nts SARS-CoV-2 INTERPRETATION (test code = 91775) NEGATIVE SOURCE (test code = 70978) NASOPHARYNGEAL SARS-CoV-2 (COVID-19) by RT-PCR (HIGH RISK)2021-01-26 00:00:00* Test Item Value Reference Range Interpretation Comme nts SARS-CoV-2 INTERPRETATION (test code = 88897) NEGATIVE SOURCE (test code = 22124) NASOPHARYNGEAL Notes Date/Time Note Provider Source 2022-08-10 07:26:00 [id number]+[id number]-94A87:26:00 [facility] ([facility])EMERGENCY PROVIDER REPORTREPORT#:[id number] REPORT STATUS: SignedDATE:08/10/22 TIME:725 PATIENT: AISLINN BURK UNIT #: [id number]#: [id number] ROOM/BED:: 97 AGE: 26 SEX: F PCP PHYS: Leroy Cool AUTHOR: Tenke,Lorenzo DO * ALL edits or amendments must be made on the electronic/computer document * HPI-Abd Pain F Under 40 GeneralConfirmed Patient YesInitial Greet Date/Time 08/10/22 0707 PresentationChief Complaint Abdominal pain, Nausea, Pelvic pain, [...] Nothing Free Text HPI NotesFree Text HPI MwhcoA2A2 -states she is currently with twins and one of them is nonviable. States she was told that half of her uterus was filled with hemorrhage. Has hadabdominal pain, vaginal bleeding, nausea and vomiting for the past 2 weeks. States [facility]. Risk-Abd Pain F Under 40)( Ectopic Risk factors reviewed Review of Systems ROS StatementsComplete sys rev neg except as marked. Focused Review of SystemsConstitutionalDenies: Chills, Fever, Lethargy. RespiratoryDenies: Cough, non-productive, Cough, productive, Shortness of breath. CardiovascularDenies: Chest pain, Syncope. GIReports: Abdominal pain, Nausea, Vomiting. Denies: Diarrhea. FemaleReports: , Vaginal bleeding - abnl. Denies: Dysuria, Flank pain, Pelvicpain. MusculoskeletalDenies: Back pain, Extremity pain. Past Medical History - AdultStated Complaint NAUSEA, VOMITING, BLEEDING 2 WEEKS, HX MISCAllergiesCoded Allergies:No Known Allergies (08/10/22) Pt reports no significant: Past medical historyPast Surgical History:Reports: Cholecystectomy. Physical Exam Vital SignsVital SignsFirst Documented: Result Date Time Pulse Ox 100 08/10 0720 B/P 122/73 08/10 07 B/P Mean 89 08/10 720 O2 Delivery Room air 08/10 720 Temp 97.6 08/10 720 Pulse 55 08/10 720 Resp 17 08/10 720 Last Documented: Result Date Time Pulse Ox 99 08/10 1145 B/P 108/62 08/10 1145 B/P Mean 77 08/10 114 O2 Delivery Room air 08/10 114 Temp 98.0 08/10 114 Pulse 95 08/10 114 Resp 18 08/10 114 Review of Vital Signs Reviewed Focused PEGeneral/Const General/Const Awake, Alert, Well appearingMS Head Head NormocephalicEyes Eyes PERRLEars/Nose/Throat Ears/Nose/Throat Airway patent, Mucous membranes moist, Pharynx NLResp/Chest Respiratory/Chest Breath sounds NL, Breath sounds = bilat, No respiratory distress, No rales, No rhonchi, No wheezingCardiovascular Cardiovascular Heart rate NL, Regular rhythm, Heart sounds NL, Peripheral circulation NLAbdomen/GI Abdomen/GI Soft, Non-tender, McBurney's non-tender, No guarding, No rebound, BS normoactive, No distention, No hernia, No palpable massMS Back Back Inspection NL, Non-tender, No CVA tendernessSkin Skin Color NL, Warm, Dry, Turgor NLGenitourinary General Casino Banker present Female Genitourinary Atraumatic, External genitalia NL, No uterine mass, No lesions or rash Text/Dict NotesCervix open. No obstruction. Very small amount of blood present in the vagina. No other products of conception reviewed.Neurologic Neurologic Oriented X3, Speech NL, No motor deficits, No sensory deficits Additional PEMS Upper Extrem Upper Extremity/MS Atraumatic, Inspection NLMS Wrist/Hand Wrist/Hand Atraumatic, Inspection NL Interpretation Diagnostics Lab Results InterpretationResultsLaboratory Tests 08/10/22730:[Embedded Image Not Available]Laboratory Tests: 08/10 731 Chemistry Sodium (134 - 147 mmol/L) 137 Potassium (3.4 - 5.0 mmol/L) 4.1 Chloride (100 - 108 mmol/L) 106 Carbon Dioxide (21 - 32 mmol/L) 21 Anion Gap (4.0 - 15.0 GAP calc) 10.0 BUN (7 - 18 MG/DL) 13 Creatinine (0.6 - 1.0 MG/DL) 0.8 Glomerular Filtr Rate (>60 estGFR) >=60 max estimate Glucose [...] (Auto) (20.5 - 51.1 %) 3.9 L [place] % (Auto) (1.7 - 9.3 %) 1.0 L Eos % (Auto) (0.0 - 6.0 %) 0.0 Baso % (Auto) (0.0 - 2.0 %) 0.1 Neut # (Auto) (1.8 - 7.6 K/mm3) 15.5 H Lymph # (Auto) (0.6 - 3.2 K/mm3) 0.6 [place] # (Auto) (0.3 - 1.1 K/mm3) 0.2 [...] Maternal Serum HCG (0 - 6 mi-IU/ML) 92620 H Urines Urine Color (YEL/STRAW discript) STRAW Urine Appearance (CLEAR discript) TURBID H Urine pH (5.0 - 7.0 pH UNITS) 6.0 Ur Specific [place] (1.005 - 1.030 SG) >=1.030 H Urine [...] a subchorionic hemorrhage. Impression By: Veronica Talavera M.D.ULTRASOUND - US PREG 1ST TRIMTR 08/10 800 Report Impression - Status: SIGNED Entered: 08/10/2022924 IMPRESSION: A single intrauterine is identified. However, no fetalheartbeat can be identified. According to ultrasound size criteria,the estimated gestational age would be approximately 8 weeks 1 day.These findings are suspicious for intrauterine demise. There is a subchorionic hemorrhage. Impression By: Veronica Talavera M.D.ULTRASOUND - DUP AB/PEL/SC COMP 08/10 0849 Report Impression - Status: SIGNED Entered: 08/10/2022 0925 IMPRESSION: A single intrauterine is identified. However, no fetalheartbeat can be identified. According to ultrasound size criteria,the estimated gestational age would be approximately 8 weeks 1 day.These findings are suspicious for intrauterine demise. There is a subchorionic hemorrhage. Impression By: Veronica Talavera M.D. Re-Evaluation [facility] )( Re-Evaluation/Progress #1Text/Dict NotePatient states that her nausea and pain was resolved after Zofran she was able to sleep however symptoms have since returned. Additional Zofran ordered. Mother bedside. Discussed test results in detail. Patient now clarifies that she had an ultrasound performed yesterday and was told that she might have to pregnancies or that she may just have 1 and a large subchorionic hemorrhage. Patient has follow-up with ACO COORDINATOR.Time of Re-Eval 1005)( Re-Eval Status Improved Re-Evaluation/Progress #2Text/Dict NotePain improved. Nausea improved. Mother bedside. No additional complaints. Patient requesting medicine for anxiety. States she has a history of anxiety and that her miscarriage is exacerbating this. Time of Eval 1130Re-Eval Status Improved ED CourseMedication(s) OrderedMedication(s) Ordered:Gastrointestinal Drugs Sig/Jama Start time Last Medication Dose Route Stop Time Status Admin Ondansetron HCl 4 MG X1ED STA 08/10 1016 DC 08/10 IV 08/10 1017 1020 Patient Discharge Departure Vital Signs/ConditionVital SignsFirst Documented: Result Date Time Pulse Ox 100 08/10 07 B/P 122/73 08/10 720 B/P Mean 89 08/10 07 O2 Delivery Room air 08/10 720 Temp 97.6 08/10 720 Pulse 55 08/10 07 Resp 17 09/21 0720 Last Documented: Result Date Time Pulse [...] Incomplete, Understanding Miscarriage: EmotionsAdditional InstructionsFollow-up with your ACO COORDINATOR physician in 1 to 2 days at 0917 RPT #: [id number] OF REPORTEDEmergency department [id number]:26:00L.[id number] ilable for patient gvopYATKOPODXGUCTA0367-67-88F97:[id number] HCAPM"
[2024-02-02 13:54] LABS: SARS-CoV-2 Antigen CONTROL BLUE LINE VIS/BG OK; SARS-CoV-2 Antigen Rapid Res Negative (Negative)
--- NOTE | 2024-02-02 14:19 | RAD REPORT ---
[facility]43 [facility] CLINICAL HISTORY: COUGH COMPARISON: Chest Pa And Lat (2 Views) dated 10/09/2023; Chest Single View dated 07/02/2023; Chest Si ngle View dated 07/01/2023 TECHNIQUE: Portable AP view of the chest. FINDINGS: The lungs are clear. No pneumothorax or effusion. The cardiomediastinal contours are unre markable. IMPRESSION: No acute cardiopulmonary process.
[2024-02-02 15:48] LABS: Absolute Eosinophils 0.9 K/uL (0-0.5); Absolute Lymphocytes (CBC) 1.7 K/uL (0.7-4.9); Absolute Monocytes 0.8 K/uL (0.1-1.3); Absolute Neutrophil 11.3 K/uL (1.8-8.0); Basophils % 0.2 % (0-1.3); Eosinophils % 6.2 % (0-4.4); Hematocrit 35.5 % (36.0-45.0); Lymphocytes % 11.7 % (15.3-44.8); MCH 30.3 pg (27.0-35.0); MCHC 33.9 g/dL (32.0-36.0); MCV 89.4 fL (80-100); MPV 7.9 fL (7.6-11.3); Monocytes % 5.3 % (3.3-12.3); Neutrophils % 76.6 % (41.7-73.7); Platelets 272 thou/uL (152-406); RBC Red Blood Cell Count 3.98 M/uL (3.86-4.86); Red Cell Distribution Width 15.3 % (12.1-15.2)
[2024-02-02 16:03] LABS: ALT/SGPT 21 U/L (13-56); AST/SGOT 8 U/L (15-37); Albumin 3.4 g/dL (3.4-5.0); Albumin/Globulin Ratio 1.1 (1.1-1.8); Alkaline Phosphatase 33 U/L (45-117); Anion Gap 7.1 mEq/L (5.0-15.0); BUN Blood Urea Nitrogen 11 mg/dL (7-18); Bicarbonate 29 mEq/L (21-32); Bilirubin Total 0.2 mg/dL (0.2-1.0); Globulin 3.2 g/dL (2.3-3.5); Glomerular Filtration Rate 122 ml/min (=/>90); Glucose Level 104 mg/dL (74-106); Potassium 4.1 mEq/L (3.5-5.1); Protein, Total 6.6 g/dL (6.4-8.2); Sodium Level 142 mEq/L (136-145)
[2024-02-02 16:13] LABS: Bilirubin Direct < 0.1 mg/dL (0-0.2); Bilirubin Indirect, Calculated ND mg/dL (0.2-0.8)
--- NOTE | 2024-02-02 16:20 | ER ---
Nurse's Notes [facility] Name: Cely Clancy Age: 28 yrs Sex: Female : 1995 Arrival Date: 02/02/2024 Time: 13:04 Bed 10 Private MD: Diagnosis: Unspecified asthma, uncomplicated Presentation: 02/01 13:22 Chief complaint: Patient states: Cough, SOB started last night while working. Lungs ll1 burning and worsening SOB today. No fever. Coronavirus screen: Vaccine status: Patient reports being unvaccinated. Client denies travel out of the [place] in the last 14 days. congestion, cough unrelated to allergies, difficulty breathing, fatigue, headache, muscle pain, shortness of breath, sore throat, Client presents with at least one sign or symptom that may indicate coronavirus-19. Standard/surgical mask placed on the client. Ebola Screen: Patient denies travel to an Ebola-affected area in the 21 days before illness onset. Initial Sepsis Screen: Does the patient meet any 2 criteria? No. Patient's initial sepsis screen is negative. Does the patient have a suspected source of infection? No. Patient's initial sepsis screen is negative. Risk Assessment: Do you want to hurt yourself or someone else? Patient reports no desire to harm self or others. Onset of symptoms was February 01, 2024. 13:22 Method Of Arrival: Ambulatory ll1 13:22 Acuity: TOMÁS 3 ll1 Triage Assessment: 13:24 General: Appears uncomfortable, Behavior is calm, cooperative, appropriate for age. ll1 Pain: Complains of pain in chest lizarraga with breathing Pain currently is 9 out of 10 on a pain scale. Quality of pain is described as burning, aching. Neuro: Reports weakness. Respiratory: Reports shortness of breath cough that is pain with respiration Onset: The symptoms/episode began/occurred yesterday, the patient has moderate shortness of breath. COGNOS: 16:05 LMP N/A - control method, Not tl4 Historical: - Allergies: 13:16 No Known Allergies; hb - Home Meds: 16:03 Adderall Oral for Attention-Deficit Hyperactivity Disorder [Active]; Clonazepam Oral tl4 [Active]; Pristiq oral [Active]; Propranolol Oral [Active]; - PMHx: 13:16 Anxiety; depressive disorder; PCOS; Post depression; suicidal ideation (Post hb depress); - PSHx: 13:16 section; Cholecystectomy; hb - Immunization history:: Adult Immunizations up to date. - Social history:: Smoking status: Reported history of juuling and/or vaping. - Family history:: not pertinent. Screenin:02 [facility] ED Fall Risk Assessment (Adult) History of falling in the last 3 months, tl4 including since admission No falls in past 3 months (0 pts) Confusion or Disorientation No (0 pts) Intoxicated or Sedated No (0 pts) Impaired Gait No (0 pts) Mobility Assist Device Used No (0 pt) Altered Elimination No (0 pt) Score/Fall Risk Level 0 - 2 = Low Risk Oriented to surroundings, Maintained a safe environment, Educated pt \T\ family on fall prevention, incl call for assistance when getting out of bed, Assessed \T\ reinforced patient's understanding of fall precautions, Hourly rounding (assess needs \T\ fall precautionary measures) done, Used ambulatory aids as needed (educated on \T\ assisted with). Abuse screen: Denies threats or abuse. Denies injuries from another. Nutritional screening: No deficits noted. Tuberculosis screening: No symptoms or risk factors identified. Assessment: 15:30 General: Appears in no apparent distress. Behavior is calm, cooperative. Pain: tl4 Complains of pain in mouth. Neuro: No deficits noted. Cardiovascular: Denies chest pain, lightheadedness, palpitations, Capillary refill < 3 seconds Patient's skin is warm and dry. Rhythm is regular. Respiratory: Reports pain with cough Airway is patent Respiratory effort is even, unlabored, Respiratory pattern is regular, symmetrical, Breath sounds are clear bilaterally. GI: No deficits noted. No signs and/or symptoms were reported involving the gastrointestinal system. : No deficits noted. No signs and/or symptoms were reported regarding the genitourinary system. EENT: No deficits noted. No signs and/or symptoms were reported regarding the EENT system. Derm: No deficits noted. No signs and/or symptoms reported regarding the dermatologic system. Musculoskeletal: No deficits noted. No signs and/or symptoms reported regarding the musculoskeletal system. 16:34 Reassessment: Patient and/or family updated on plan of care and expected duration. Pain tl4 level reassessed. Patient is alert, oriented x 3, equal unlabored respirations, skin warm/dry/pink. Patient states symptoms have improved. Vital Signs: 13:22 BP 120 / 76; Pulse 92; Resp 17; Temp 97.8; Pulse Ox 99% ; Pain 9/10; ll1 16:34 BP 123 / 83; Pulse 88; Resp 16; Temp 98.3(TE); Pulse Ox 100% on R/A; Pain 5/10; tl4 13:22 Pain Scale: Adult ll1 16:34 Pain Scale: Adult tl4 ED Course: 13:06 Patient arrived in ED. mg5 13:07 Ameya Ugalde MD is Attending Physician. rt 13:16 Arm band placed on. hb 13:24 Triage completed. ll1 13:29 Influenza Screen (a \T\ B) Sent. ll1 13:29 SARS RAPID Sent. ll1 13:29 COVID swab sent to lab. Flu and/or RSV swab sent to lab. ll1 13:45 XRAY Chest (1 view) In Process Unspecified. EDMS 14:20 Patient placed in an exam room, on a stretcher. hb 14:26 Brad Avalos, RN is Primary Nurse. tl4 15:31 Test, Serum Sent. tl4 15:31 Basic Metabolic Panel Sent. tl4 15:31 CBC with Diff Sent. tl4 15:31 LFT's Sent. tl4 15:31 Inserted saline lock: 22 gauge in right antecubital area, using aseptic technique. tl4 Blood collected. 16:03 Patient has correct armband on for positive identification. Placed in gown. Bed in low tl4 position. Call light in reach. Side rails up X 1. Adult w/ patient. Provided Education on: ed process. Client placed on continuous cardiac and pulse oximetry monitoring. NIBP monitoring applied. Door closed. Noise minimized. Lights dimmed. Moved to private room. Warm blanket given. PO fluids given. 16:03 No provider procedures requiring assistance completed. tl4 16:35 IV discontinued, intact, bleeding controlled, No redness/swelling at site. Pressure tl4 dressing applied. Administered Medications: 15:31 Drug: predniSONE PO 40 mg PO once Route: PO; tl4 15:43 Follow up: Response: No adverse reaction tl4 15:43 Drug: DuoNeb Nebulize (3:1) (2.5 mg - 0.5 mg) 3 ml Nebulizer once Route: Nebulizer; tl4 15:43 Follow up: Response: No adverse reaction tl4 15:49 Drug: Ketorolac IVP 15 mg IVP once Route: IVP; Site: right antecubital; tl4 16:05 Follow up: Response: Pain is decreased tl4 Medication: 16:02 VIS not applicable for this client. tl4 Outcome: 16:20 Discharge ordered by . rt 16:35 Discharged to home ambulatory, with friend, tl4 16:35 Condition: stable 16:35 Discharge instructions given to patient, Instructed on discharge instructions, follow up and referral plans. medication usage, Demonstrated understanding of instructions, follow-up care, medications, Prescriptions given X 2, 16:35 Patient left the ED. tl4 Signatures: Dispatcher [employer] EDMS Wen Ewing RN JP Froylan Restrepo RN RN ll1 Ameya Ugalde MD MD rt Gin Ware mg5 Brad Avalos RN RN tl4 Corrections: (The following items were deleted from the chart) 14:26 14:13 Patient not in lobby when called into room 10 ll1
--- NOTE | 2024-02-02 16:20 | EDPHYS ---
Physician Documentation [facility] Name: Cely Clancy Age: 28 yrs Sex: Female : 1995 Arrival Date: 02/02/2024 Time: 13:04 Bed 10 Private MD: ED Physician Ameya Ugalde HPI: 02/01 14:08 This 28 yrs old Female presents to ER via Ambulatory with complaints of Breathing rt Difficulty. 14:08 Patient with history of asthma presents to the ED with difficulty breathing, cough rt starting last night. She does report a burning sensation to her chest when she takes a deep breath. Denies other acute complaints at this time. Symptoms are moderate in severity, no other aggravating or alleviating factors.. 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 - Social history:: Smoking status: Reported history of juuling and/or vaping. - Family history:: not pertinent. ROS: 14:08 Constitutional: Negative for fever, chills, and weight loss, Cardiovascular: Negative rt for chest pain, palpitations, and edema, Abdomen/GI: Negative for abdominal pain, nausea, vomiting, diarrhea, and constipation, MS/Extremity: Negative for injury and deformity, Skin: Negative for injury, rash, and discoloration, Neuro: Negative for headache, weakness, numbness, tingling, and seizure, Psych: Negative for depression, anxiety, suicide ideation, homicidal ideation, and hallucinations, 14:08 Respiratory: Positive for cough, shortness of breath, Exam: 14:09 Constitutional: This is a well developed, well nourished patient who is awake, alert, rt and in no acute distress. Head/Face: Normocephalic, atraumatic. Chest/axilla: Normal chest wall appearance and motion. Nontender with no deformity. No lesions are appreciated. Cardiovascular: Regular rate and rhythm with a normal S1 and S2. No gallops, murmurs, or rubs. Normal PMI, no JVD. No pulse deficits. Abdomen/GI: Soft, non-tender, with normal bowel sounds. No distension or tympany. No guarding or rebound. No evidence of tenderness throughout. Skin: Warm, dry with normal turgor. Normal color with no rashes, no lesions, and no evidence of cellulitis. MS/ Extremity: Pulses equal, no cyanosis. Neurovascular intact. Full, normal range of motion. Neuro: Awake and alert, GCS 15, oriented to person, place, time, and situation. Cranial nerves II-XII grossly intact. Motor strength 5/5 in all extremities. Sensory grossly intact. Cerebellar exam normal. Normal gait. 14:09 Respiratory: Faint wheezes heard on all lung velazquez, no respiratory distress, Vital Signs: 13:22 BP 120 / 76; Pulse 92; Resp 17; Temp 97.8; Pulse Ox 99% ; Pain 9/10; ll1 16:34 BP 123 / 83; Pulse 88; Resp 16; Temp 98.3(TE); Pulse Ox 100% on R/A; Pain 5/10; tl4 13:22 Pain Scale: Adult ll1 16:34 Pain Scale: Adult tl4 MDM: 13:27 Patient medically screened. rt 16:23 Differential diagnosis: Asthma, pneumonia, pneumothorax, anemia. Data reviewed: vital rt signs, nurses notes, lab test result(s), radiologic studies. I considered the following discharge prescriptions or medication management in the emergency department Medications were administered in the Emergency Department. See MAR. Independent interpretation of the following test(s) in the Emergency Department X-Ray: My interpretation is No pneumonia seen on interpretation of x-ray images. Care significantly affected by the following chronic conditions: Asthma. Counseling: I had a detailed discussion with the patient and/or guardian regarding the historical points, exam findings, and any diagnostic results supporting the discharge/admit diagnosis, lab results, radiology results, the need for outpatient follow up, to return to the emergency department if symptoms worsen or persist or if there are any questions or concerns that arise at home. ED course: Patient with leukocytosis, likely demargination, no signs of infectious etiology currently. Stable for outpatient care. 02/01 13:28 Order name: Basic Metabolic Panel; Complete Time: 16:14 rt 02/01 13:28 Order name: CBC with Diff; Complete Time: 16:04 rt 02/01 13:28 Order name: LFT's; Complete Time: 16:14 rt 02/01 13:28 Order name: Test, Serum; Complete Time: 16:11 rt 02/01 13:28 Order name: Influenza Screen (a \T\ B); Complete Time: 14:20 rt 02/01 13:28 Order name: SARS RAPID; Complete Time: 14:20 rt 02/01 13:28 Order name: XRAY Chest (1 view); Complete Time: 14:20 rt 02/01 13:28 Order name: IV Saline Lock; Complete Time: 15:31 rt 02/01 13:28 Order name: Labs collected and sent; Complete Time: 15:31 rt 02/01 13:28 Order name: O2 Per Protocol; Complete Time: 14:37 rt 02/01 13:28 Order name: O2 Sat Monitoring; Complete Time: 14:37 rt Administered Medications: 15:31 Drug: predniSONE PO 40 mg PO once Route: PO; tl4 15:43 Follow up: Response: No adverse reaction tl4 15:43 Drug: DuoNeb Nebulize (3:1) (2.5 mg - 0.5 mg) 3 ml Nebulizer once Route: Nebulizer; tl4 15:43 Follow up: Response: No adverse reaction tl4 15:49 Drug: Ketorolac IVP 15 mg IVP once Route: IVP; Site: right antecubital; tl4 16:05 Follow up: Response: Pain is decreased tl4 Disposition Summary: 02/02/24 16:20 Discharge Ordered Notes: Location: Home rt Problem: an acute exacerbation rt Symptoms: have improved rt Condition: Stable rt Diagnosis - Unspecified asthma, uncomplicated rt Followup: rt - With: Private Physician - When: 2 - 3 days - Reason: Discharge Instructions: - Discharge Summary Sheet rt - Asthma, Adult rt Forms: - Medication Reconciliation Form rt - Thank You Letter rt - Antibiotic Education rt - Prescription Opioid Use rt - Patient Portal Instructions rt - Leadership Thank You Letter rt Prescriptions: - Zofran 4 mg Oral tablet - take 1 tablet ORAL route every 6 hours As needed; 20 tablet; Refills: 0, rt Product Selection Permitted - Prednisone 20 mg Oral tablet - take 2 tablets ORAL route once daily for 4 days; 8 tablet; Refills: 0, Product rt Selection Permitted Signatures: Dispatcher [employer] Wen Moore, RN RN Froylan Chicas RN RN ll1 Ameya Ugalde MD MD rt Brad Avalos RN RN tl4
[2024-02-02 16:56] VITALS: BP 123/83; TEMP 98.3; O2SAT 100
== END ==
LOC: ER 13:04
DX: J45.909 Unspecified asthma, uncomplicated (principal); Z11.52 Encounter for screening for COVID-19
CPT/HCPCS: 36415; 71045; 80048; 80076; 84703; 85025; 87804; 87811; 94640; 96374; 99285; J7512; J7613; J7644

== ENCOUNTER 2024-02-24 20:09 | Emergency (ER) | payer SELFPAY ==
--- OUTSIDE RECORDS SUMMARY | 2024-02-24 20:14 | XMS REPORT | Continuity of Care Document ---
Author Name Unknown Address [address] [facility] [place] [address] [facility] thconnect Address [address] [facility] [address] [place] [address] Care Team Providers Care Android Programmer Name Role Phone Odalys Daviseliese Primary Care Physician [phone] [email or web address] Attending Clinician Unavaila MATHEUS Tesfaye Attending Clinician Unavaila MATHEUS Tesfaye Attending Clinician Unavailnathaniel Madden RN, Arlen M Attending Clinician Unavailable Pob, [facility] Main Attending Clinician LISSET Johnston Attending Clinician Unavailable Doctor Unassigned, [place] Attending Clinician Edison Acevedo RN, Mitchell Longoria Attending Clinician Shannon ZARAGOZA, K Kimmy Attending Clinician [phone] Lisset Calhoun MD Attending Clinician [phone] Roger Dunlap MD Attending Clinician Lorenzo Mmcahan Attending Clinician Unavailable GUANAKITO FOX Attending Clinician Unavailable ALEX MERCHANT Attending Clinician Unavail able Guanakito Fox MD Attending Clinician [phone] Catalina Lowery DO Attending Clinician [phone] CATALINA LOWERY Attending Clinician Unavailable [email or web address]_S Admitting Clinician Unavaila LISSET Marino Admitting Clinician Unavailable Lisset Calhoun MD Admitting Clinician [phone] Leroy Cool Admitting Clinician Unavailab MATHEUS Gregory Admitting Clinician Unavaila GUANAKITO Erickson Admitting Clinician Unavailable Guanakito Fox MD Admitting Clinician [phone] Payers Payer Name Policy Type Policy Number Effective Date Expirati on Date Source [facility] [id number] 2018 00:00:00 Problems Condition Name Condition Details Condition Category Status Onset Date Resolution Date Last Treatment Date Treating Clinician Comments Source Missed Missed Disease Active 0 08-11 00:00: 00 [facility] acute hospital Abdominal pain affecting Abdominal pain affecting Disease Active 0 08-11 00:00: 00 [facility] acute [facility] Nausea and vomiting during Nausea and vomiting during Disease Active 0 08-11 00:00: 00 [facility] Vaginal bleeding affecting early Vaginal bleeding affecting early Disease Active 0 - 00:00: 00 [facility] acute hospital Anxiety Anxiety Disease Active 0 08-09 00:00: 00 [facility] Vaginal bleeding in Vaginal bleeding in Disease Active 0 08-09 00:00: 00 [facility] Iron deficiency anemia Iron deficiency anemia Disease Active - 00:00: 00 [facility] delivery delivered delivery delivered Disease Active 0 - 00:00: 00 [facility] acute [facility] delivery delivered delivery delivered Disease Active 0 - 00:00: 00 [facility] COVID-19 virus infection COVID-19 virus infection Disease Active 1-25 00:00: 00 [facility] acute hospital labor in third trimester with delivery labor in third trimester with delivery Disease Active 1 00:00: 00 [facility] acute hospital Encounter for tubal ligation counseling Encounter for tubal ligation counseling Disease Active 2020-11 00:00: 00 [facility] acute hospital High-risk in third trimester High-risk in third trimester Disease Active 2020-11 00:00: 00 [facility] acute [facility] Previous section Previous section Disease Active 2020-11 00:00: 00 [facility] History of depression History of depression Disease Active 2020-11 00:00: 00 [facility] History of anxiety History of anxiety Disease Active 2020-11 00:00: 00 [facility] acute hospital Obesity during Obesity during Disease Active 2020-11 00:00: 00 [facility] acute hospital Obesity (BMI 30-39.9) Obesity (BMI 30-39.9) Disease Active 2020-11 00:00: 00 [facility] acute hospital History of section History of section Disease Active 2020-11 0-28 00:00: 00 Overview: Formattin g of this note might be different from the original. Formattin g of this note might be different from the original. Desires trial of labor.Raul ared for trial of labor. epsPatien t declines trial of labor now.Prete rm labor. [facility] acute hospital Episodic mood disorder Episodic mood disorder Disease Active 4-30 00:00: 00 [facility] acute hospital Arcuate uterus Arcuate uterus Disease Active 07-30 00:00: 00 [facility] acute hospital MTHFR mutation MTHFR mutation Disease Active 07-30 00:00: 00 [facility] acute hospital Generalize d abdominal pain Generalize d abdominal pain Disease Active 4-15 00:00: 00 [facility] acute hospital Contracept brennon management Contracept brennon management Disease Active 3-03 00:00: 00 [facility] acute hospital Vaginal bleeding Vaginal bleeding Disease Active 3-03 00:00: 00 [facility] acute hospital Allergies, Adverse Reactions, Alerts Allergy Name Allergy Type Status Severity Reaction(s) Onset Date Inactive Date Treating Clinician Comments Source No Known Allergie s DA Active U 9- 00:00: 00 [facility] NO KNOWN ALLERGIE S Drug Class Active [facility] acute hospital Social History Social Habit Start Date Stop Date Quantity Comments Source ASSERTION 2021-04-23 00:00:00 [facility] History of tobacco use Current smoker [facility] Sexual orientation [facility] Exposure to SARS-CoV-2 (event) 2022-08-05 00:00:00 2022-08-15 10:54:[address] [facility] Tobacco use and exposure 2022-08-08 00:00:00 2022-08-08 00:00:00 Smokeless tobacco non-user [facility] Alcohol intake 2022-08-08 00:00:00 2022-08-08 00:00:00 0 /d [facility] History of Social function 2022-08-08 00:00:00 2022-08-08 00:00:00 [facility] Sex Assigned At 1995 00:00:00 1995 00:00:00 [facility] Smoking Status Start Date Stop Date Source Ex-smoker 2022-08-08 00:00:00 2022-08-08 00:00:00 [facility] Medications Ordered Medication Name Filled Medication Name Start Date Stop Date Current Medication? Ordering Clinician Indication Dosage Frequency Signature (SIG) Comments Components Source metroNIDAZO LE 500 mg tablet 2021-11 017 00:00: 00 09-13 04:59 :00 No [id number] 500mg Take 1 tablet by mouth every 12 (twelve) hours for 7 days. [facility] acute hospital ALPRAZolam 0.5 mg tablet 2021-11 010 00:00: 00 Yes .5mg Take 0.5 mg by mouth in the morning and 0.5 mg at noon and 0.5 mg in the evening. [facility] acute hospital propranoloL 20 mg tablet 2021-11 010 00:00: 00 Yes [facility] acute hospital desvenlafax ine succinate 25 mg Tb24 2021-11 00:00: 00 Yes [facility] acute hospital diazePAM 10 mg tablet 08-17 00:00: 00 Yes [facility] acute hospital buPROPion XL 150 mg 24 hr tablet 08-17 00:00: 00 Yes [facility] acute hospital ketorolac (TORADOL) injection 30 mg 08-12 00:15: 00 08-11 23:29 :00 No 30mg 30 mg, Slow IV Push, ONCE, 1 dose, On Donna 08/11/22 at 1915, Routine [facility] morpHINE (4 mg/mL) injection 2 mg 08-11 23:11: 20 08-12 02:16 :19 No 2mg 2 mg, Slow IV Push, Q5MIN PRN, 5 doses, Starting on Donna 08/11/22 at 1811, Until Donna 08/11/22 at 2116, Routine, Pain (scale 4-6), PACU [facility] acute [facility] ondansetron (ZOFRAN (PF)) injection 4 mg 08-11 23:11: 20 08-12 02:16 :19 No 4mg 4 mg, Slow IV Push, PRN, 1 dose, Starting on Donna 08/11/22 at 1811, Until Donna 08/11/22 at 2116, Routine, Nausea and Vomiting (N/V), PACU [facility] sugammadex (BRIDION) injection 08-11 22:45: 00 08-11 23:00 :49 No IV Push, ONCE INTRA PROCEDURE, Starting on Donna 08/11/22 at 1745, Until Donna 08/11/22 at 1800, Routine, Intra-op [facility] acute hospital water for irrigation irrigation solution 08-11 22:28: 00 08-12 02:16 :19 No PRN, Starting on Donna 08/11/22 at 1728, Until Donna 08/11/22 at 2116, Routine, Intra-op [facility] ondansetron (ZOFRAN (PF)) injection 08-11 22:25: 00 08-11 23:00 :49 No Slow IV Push, ONCE INTRA PROCEDURE, Starting on Donna 08/11/22 at 1725, Until Donna 08/11/22 at 1800, Routine, Intra-op [facility] dexamethaso ne (DECADRON PHOSPHATE) injection 08-11 22:16: 00 08-11 23:00 :49 No IV Push, ONCE INTRA PROCEDURE, Starting on Donna 08/11/22 at 1716, Until Donna 08/11/22 at 1800, Routine, Intra-op [facility] doxycycline hyclate (Vibramycin ) capsule 08-11 22:15: 00 08-11 23:00 :49 No Oral, ONCE INTRA PROCEDURE, Starting on Donna 08/11/22 at 1715, Until Donna 08/11/22 at 1800, BRIGID, Intra-op [facility] rocuronium (ZEMURON) injection 08-11 22:09: 00 08-11 23:00 :49 No IV Push, ONCE INTRA PROCEDURE, Starting on Donna 08/11/22 at 1709, Until Donna 08/11/22 at 1800, Routine, Intra-op [facility] propofoL IV infusion 08-11 22:09: 00 08-11 23:00 :49 No Intravenou s, ONCE INTRA PROCEDURE, Starting on Donna 08/11/22 at 1709, Until Donna 08/11/22 at 1800, Routine, Intra-op [facility] FENTanyl PF (SUBLIMAZE (PF)) injection 08-11 22:09: 00 08-11 23:00 :49 No Intravenou s, ONCE INTRA PROCEDURE, Starting on Donna 08/11/22 at 1709, Until Donna 08/11/22 at 1800, Routine, Intra-op [facility] lidocaine 1% (XYLOCAINE) 100 mg/10 mL (1 %) injection 08-11 22:08: 00 08-11 23:00 :49 No Intravenou s, ONCE INTRA PROCEDURE, Starting on Mon08/11/22 at 1708, Until Mon08/11/22 at 1800, Routine, Intra-op [facility] acute hospital midazolam (VERSED) injection 08-11 22:03: 00 08-26 16:04 :00 No IV Push, ONCE INTRA PROCEDURE, Starting on Mon08/11/22 at 1703, Until Mon08/26/22 at 1104, Routine, Intra-op [facility] acute hospital lactated ringers IV infusion 08-11 22:03: 00 08-11 23:00 :49 No Intravenou s, CONTINUOUS PRN, Starting on Mon08/11/22 at 1703, Until Mon08/11/22 at 1800, Routine, Intra-op [facility] acute hospital haloperidol lactate (HALDOL) injection 1 mg 08-11 21:00: 00 08-11 20:57 :00 No 1mg 1 mg, Intravenou s, ONCE, 1 dose, On Mon08/11/22 at 1600, STAT [facility] acute hospital ondansetron (ZOFRAN (PF)) injection 4 mg 08-11 19:30: 00 08-11 18:32 :00 No 4mg 4 mg, Slow IV Push, ONCE, 1 dose, On Mon08/11/22 at 1430, [facility] famotidine (PEPCID (PF)) injection 20 mg 08-11 19:30: 00 08-11 19:29 :00 No 20mg 20 mg, Slow IV Push, ONCE, 1 dose, On Mon08/11/22 at 1430, [facility] vit calc,iron,f olic ( VITAMIN ORAL) 08-11 19:16: 17 Yes Take by mouth. [facility] acute hospital NaCl 0.9% (NS) bolus infusion 1,000 mL 08-11 17:15: 00 08-11 17:30 :00 No 1000mL at 999 mL/hr, 1,000 mL, IV Piggyback, ONCE, 1 dose, On Donna 08/11/22 at 1215, STAT [facility] acute hospital morpHINE (4 mg/mL) injection 4 mg 08-11 16:45: 00 08-11 16:05 :00 No 4mg 4 mg, Slow IV Push, ONCE, 1 dose, On Donna 08/11/22 at 1145, STAT [facility] acute hospital proMETHazin e (PHENERGAN) 12.5 mg in NaCl 0.9% (NS) 50 mL IV piggyback 08-11 16:00: 00 08-11 16:09 :00 No 12.5mg 12.5 mg, IV Piggyback, ONCE, 1 dose, On Donna 08/11/22 at 1100, [facility] ondansetron (ZOFRAN (PF)) injection 4 mg 08-11 15:15: 00 08-11 15:11 :00 No 4mg 4 mg, Slow IV Push, ONCE, 1 dose, On Donna 08/11/22 at 1015, BRIGID [facility] acute hospital ibuprofen 800 mg tablet 08-11 00:00: 00 Yes [id number] 800mg Take 1 tablet by mouth every 6 (six) hours as needed for Alternate with [place] for pain scale 4-6. [facility] acute hospital methylergon ovine 0.2 mg tablet 08-11 00:00: 00 Yes [id number] 200ug Take 1 tablet by mouth every 6 (six) hours. [facility] acute hospital amoxicillin -pot clavulanate 500 mg (AUGMENTIN) 500-125 mg tablet 08-11 00:00: 00 09-05 00:00 :00 No [id number] 500mg Take 1 tablet by mouth in the morning and 1 tablet at noon and 1 tablet in the evening. [facility] acute hospital HYDROcodone -acetaminop hen 5-325 mg tablet 08-11 00:00: 00 08-19 04:59 :00 No [id number] 1{tbl} Take 1 tablet by mouth every 6 (six) hours as needed for Pain (scale 7-10) for up to 7 days. Indication s: acute pain [facility] acute hospital ondansetron 8 mg disintegrat ing tablet 08-10 00:00: 00 Yes [id number] 8mg Take 1 tablet by mouth every 8 (eight) hours as needed for Nausea and Vomiting (N/V). [facility] acute hospital LORazepam 0.5 mg tablet 08-10 00:00: 00 Yes TAKE 1 TABLET BY MOUTH EVERY 8 HOURS NEEDED FOR ANXIETY [facility] acute hospital vit calc,iron,f olic ( VITAMIN ORAL) 08-08 11:16: 52 Yes Take by mouth. [facility] acute hospital TRAMADOL-AC ETAMINOPHN 37.5-325 07-28 00:00: 00 No TAKE 1 TABLET BY MOUTH EVERY 8 HOURS FOR UP TO 31 DAYS NEEDED FOR PAIN 07-28 00:00: 00 No dextroamphe tamine-amph etamine 20 mg tablet 07-07 00:00: 00 Yes [facility] acute hospital zolpidem 10 mg tablet 06-06 00:00: 00 Yes TAKE 1/2 TO 1 TABLET BY MOUTH DAILY AT BEDTIME [facility] acute hospital desvenlafax ine succinate 50 mg 24 hr tablet 06-03 00:00: 00 Yes [facility] vit calc,iron,f olic ( VITAMIN ORAL) 2020-11 14:57: 53 Yes Take by mouth. [facility] acute hospital Nitrofurant oin&Nit. Macrocryst 100 mg capsule 2020-11 00:00: 00 10-29 00:00 :00 No [id number] 100mg Take 1 capsule by mouth 2 (two) times daily. [facility] acute hospital haloperidol lactate (HALDOL) injection 2.5 mg 01-29 16:30: 00 01-29 15:23 :00 No 2.5mg 2.5 mg, Intravenou s, ONCE, 1 dose, Mon01/29/21 at 1030, STAT [facility] acute hospital diphenhydrA MINE (BENADRYL) injection 25 mg 01-29 15:15: 00 01-29 15:15 :00 No 25mg 25 mg, Slow IV Push, ONCE, 1 dose, Mon01/29/21 at 0915, STAT [facility] acute hospital haloperidol lactate (HALDOL) injection 2.5 mg 01-29 15:15: 00 01-29 15:15 :00 No 2.5mg 2.5 mg, Intravenou s, ONCE, 1 dose, Mon01/29/21 at 0915, STAT [facility] acute hospital ondansetron 4 mg disintegrat ing tablet 01-29 00:00: 00 10-29 00:00 :00 No [id number] 4mg Take 1 tablet by mouth every 8 (eight) hours as needed for Nausea and Vomiting (N/V). [facility] acute hospital cephALEXin (KEFLEX) 500 mg capsule 01-29 00:00: 00 02-06 04:59 :00 No [id number] 500mg Take 1 capsule by mouth 3 (three) times daily for 7 days. [facility] acute hospital dicyclomine (BENTYL) 10 mg capsule 01-29 00:00: 00 02-04 04:59 :00 No [id number] 10mg Take 1 capsule by mouth every 8 (eight) hours as needed for Abdominal pain for up to 5 days. [facility] acute hospital Immunizations Ordered Immunization Name Filled Immunization Name Date Status Comments Source TDAP 2012-11-20 00:00:[address] [facility] TDAP 2012-11-20 00:00:[address] [facility] TDAP 2012-11-20 00:00:[address] [facility] TDAP 2012-11-20 00:00:[address] [facility] TDAP 2012-11-20 00:00:[address] [facility] TDAP 2012-11-20 00:00:[address] [facility] TDAP 2012-11-20 00:00:[address] [facility] TDAP 2012-11-20 00:00:[address] [facility] TDAP 2012-11-20 00:00:[address] [facility] TDAP 2012-11-20 00:00:[address] [facility] TDAP 2012-11-20 00:00:[address] [facility] TDAP 2012-11-20 00:00:[address] [facility] TDAP 2012-11-20 00:00:[address] [facility] TDAP 2012-11-20 00:00:[address] [facility] TDAP 2012-11-20 00:00:[address] [facility] TDAP 2012-11-20 00:00:[address] [facility] TDAP 2012-11-20 00:00:[address] [facility] TDAP 2012-11-20 00:00:[address] [facility] TDAP 2012-11-20 00:00:[address] [facility] TDAP 2012-11-20 00:00:[address] [facility] TDAP 2012-11-20 00:00:[address] [facility] TDAP 2012-11-20 00:00:[address] [facility] DTAP 2002-02-27 00:00:[address] [facility] Polio (IPV/OPV) 2002-02-27 00:00:[address] [facility] MMR 2002-02-27 00:00:[address] [facility] Pneumococcal 7 Conjugate, PCV7 (Prevnar7) 2002-02-27 00:00:[address] [facility] DTAP 2002-02-27 00:00:[address] [facility] MMR 2002-02-27 00:00:[address] [facility] Pneumococcal 7 Conjugate, PCV7 (Prevnar7) 2002-02-27 00:00:[address] [facility] Polio (IPV/OPV) 2002-02-27 00:00:[address] [facility] DTAP 2002-02-27 00:00:[address] [facility] Polio (IPV/OPV) 2002-02-27 00:00:[address] [facility] MMR 2002-02-27 00:00:[address] [facility] Pneumococcal 7 Conjugate, PCV7 (Prevnar7) 2002-02-27 00:00:[address] [facility] DTAP 2002-02-27 00:00:[address] [facility] MMR 2002-02-27 00:00:[address] [facility] Pneumococcal 7 Conjugate, PCV7 (Prevnar7) 2002-02-27 00:00:[address] [facility] Polio (IPV/OPV) 2002-02-27 00:00:[address] [facility] DTAP 2002-02-27 00:00:[address] [facility] Polio (IPV/OPV) 2002-02-27 00:00:[address] [facility] MMR 2002-02-27 00:00:[address] [facility] Pneumococcal 7 Conjugate, PCV7 (Prevnar7) 2002-02-27 00:00:[address] [facility] DTAP 2002-02-27 00:00:[address] [facility] MMR 2002-02-27 00:00:[address] [facility] Pneumococcal 7 Conjugate, PCV7 (Prevnar7) 2002-02-27 00:00:[address] [facility] Polio (IPV/OPV) 2002-02-27 00:00:[address] [facility] DTAP 2002-02-27 00:00:[address] [facility] Polio (IPV/OPV) 2002-02-27 00:00:[address] [facility] MMR 2002-02-27 00:00:[address] [facility] Pneumococcal 7 Conjugate, PCV7 (Prevnar7) 2002-02-27 00:00:[address] [facility] DTAP 2002-02-27 00:00:[address] [facility] MMR 2002-02-27 00:00:[address] [facility] Pneumococcal 7 Conjugate, PCV7 (Prevnar7) 2002-02-27 00:00:[address] [facility] Polio (IPV/OPV) 2002-02-27 00:00:[address] [facility] DTAP 2002-02-27 00:00:[address] [facility] Polio (IPV/OPV) 2002-02-27 00:00:[address] [facility] MMR 2002-02-27 00:00:[address] [facility] Pneumococcal 7 Conjugate, PCV7 (Prevnar7) 2002-02-27 00:00:[address] [facility] DTAP 2002-02-27 00:00:[address] [facility] MMR 2002-02-27 00:00:[address] [facility] Pneumococcal 7 Conjugate, PCV7 (Prevnar7) 2002-02-27 00:00:[address] [facility] Polio (IPV/OPV) 2002-02-27 00:00:[address] [facility] TDAP Unknown Completed [facility] Vital Signs Vital Name Observation Time Observation Value Comments S ource Systolic blood pressure 2022-09-05 20:16:00 116 mm[Hg] [facility] Diastolic blood pressure 2022-09-05 20:16:00 78 mm[Hg] [facility] Heart rate 2022-09-05 20:16:00 75 /min [facility] Body temperature 2022-09-05 20:16:[address] [facility] Respiratory rate 2022-09-05 20:16:00 18 /min [facility] Body height 2022-09-05 20:16:00 154.9 cm [facility] Body weight 2022-09-05 20:16:00 52.617 kg [facility] BMI 2022-09-05 20:16:00 21.92 kg/m2 [facility] Systolic blood pressure 2022-08-16 21:29:00 117 mm[Hg] [facility] Diastolic blood pressure 2022-08-16 21:29:00 78 mm[Hg] [facility] Heart rate 2022-08-16 21:29:00 84 /min [facility] Body temperature 2022-08-16 21:29:[address] [facility] Respiratory rate 2022-08-16 21:29:00 18 /min [facility] Body height 2022-08-16 21:29:00 154.9 cm [facility] Body weight 2022-08-16 21:29:00 55.475 kg [facility] BMI 2022-08-16 21:29:00 23.11 kg/m2 [facility] Systolic blood pressure 2022-08-12 20:22:00 115 mm[Hg] [facility] Diastolic blood pressure 2022-08-12 20:22:00 78 mm[Hg] [facility] Heart rate 2022-08-12 20:22:00 67 /min [facility] Body temperature 2022-08-12 20:22:[address] [facility] Body height 2022-08-12 20:22:00 154.9 cm [facility] Body weight 2022-08-12 20:22:00 54.976 kg [facility] BMI 2022-08-12 20:22:00 22.90 kg/m2 [facility] Systolic blood pressure 2022-08-11 23:55:00 114 mm[Hg] [facility] Diastolic blood pressure 2022-08-11 23:55:00 69 mm[Hg] [facility] Heart rate 2022-08-11 23:55:00 67 /min [facility] Oxygen saturation in Arterial blood by Pulse oximetry 2022-08-11 23:55:00 100 /min [facility] Respiratory rate 2022-08-11 23:35:00 13 /min [facility] Body temperature 2022-08-11 23:04:[address] [facility] Body height 2022-08-11 14:29:00 154.9 cm [facility] Body weight 2022-08-11 14:29:00 53.615 kg [facility] BMI 2022-08-11 14:29:00 22.33 kg/m2 [facility] Systolic blood pressure 2022-08-11 23:05:00 107 mm[Hg] [facility] Diastolic blood pressure 2022-08-11 23:05:00 65 mm[Hg] [facility] Heart rate 2022-08-11 23:05:00 88 /min [facility] Oxygen saturation in Arterial blood by Pulse oximetry 2022-08-11 23:05:00 96 /min [facility] Body temperature 2022-08-11 23:04:[address] [facility] Respiratory rate 2022-08-11 21:27:00 16 /min [facility] Body height 2022-08-11 14:29:00 154.9 cm [facility] Body weight 2022-08-11 14:29:00 53.615 kg [facility] BMI 2022-08-11 14:29:00 22.33 kg/m2 [facility] Systolic blood pressure 2022-08-08 16:18:00 112 mm[Hg] [facility] Diastolic blood pressure 2022-08-08 16:18:00 74 mm[Hg] [facility] Heart rate 2022-08-08 16:18:00 76 /min [facility] Body temperature 2022-08-08 16:18:[address] [facility] Respiratory rate 2022-08-08 16:18:00 16 /min [facility] Body height 2022-08-08 16:18:00 154.9 cm [facility] Body weight 2022-08-08 16:18:00 54.205 kg [facility] BMI 2022-08-08 16:18:00 22.58 kg/m2 [facility] Oxygen saturation in Arterial blood by Pulse oximetry 2022-08-08 16:18:00 98 /min [facility] Systolic blood pressure 2021-10-28 20:56:00 113 mm[Hg] [facility] Diastolic blood pressure 2021-10-28 20:56:00 75 mm[Hg] [facility] Heart rate 2021-10-28 20:56:00 92 /min [facility] Body temperature 2021-10-28 20:56:[address] [facility] Respiratory rate 2021-10-28 20:56:00 18 /min [facility] Body height 2021-10-28 20:56:00 154.9 cm [facility] Body weight 2021-10-28 20:56:00 74.39 kg [facility] BMI 2021-10-28 20:56:00 30.99 kg/m2 [facility] Heart rate 2021-10-15 02:00:00 74 /min [facility] Oxygen saturation in Arterial blood by Pulse oximetry 2021-10-15 02:00:00 99 /min [facility] Systolic blood pressure 2021-10-15 01:15:00 111 mm[Hg] [facility] Diastolic blood pressure 2021-10-15 01:15:00 65 mm[Hg] [facility] Body temperature 2021-10-15 01:15:[address] [facility] Respiratory rate 2021-10-15 01:15:00 18 /min [facility] Body weight 2021-10-15 00:49:00 68.04 kg [facility] Systolic blood pressure 2021-01-29 15:30:00 119 mm[Hg] [facility] Diastolic blood pressure 2021-01-29 15:30:00 81 mm[Hg] [facility] Heart rate 2021-01-29 15:30:00 65 /min [facility] Respiratory rate 2021-01-29 15:30:00 17 /min [facility] Oxygen saturation in Arterial blood by Pulse oximetry 2021-01-29 15:30:00 98 /min [facility] Body temperature 2021-01-29 14:10:[address] [facility] Body weight 2021-01-29 14:10:00 68.04 kg [facility] Height Measured 2022-07-28 14:31:00 63.00 inches Body Temperature 2022-07-28 14:31:00 98.50 degrees Heart Rate 2022-07-28 14:31:00 77.00 /min Respiratory Rate 2022-07-28 14:31:00 BP Systolic 2022-07-28 14:31:00 106 mm[Hg] BP Diastolic 2022-07-28 14:31:00 74 mm[Hg] Weight Measured 2022-07-28 14:31:00 122.60 pounds Procedures Procedure Date / Time Performed Performing Clinician Source EXTERNAL PROVIDER RECORDS 2022-08-15 05:01:00 Do ctor Unassigned, [place] [facility] PELVIS LIMITED 2022-08-11 22:51:00 Adum, Lisset Hogan [facility] DILATION AND CURETTAGE 2022-08-11 21:47:00 Adum, Roque Longoria [facility] COVID-19 (ID NOW RAPID TESTING) 2022-08-11 20:13:[address] [facility] COVID-19 (ID NOW RAPID TESTING) 2022-08-11 20:13:[address] [facility] LAB ONLY COVID INTERPRETATION 2022-08-11 20:13:00 Juany Burk [facility] FIRST TRIMESTER LESS THAN 14 WEEKS WITH TRANSVAGINAL 2022-08-11 17:58:08 Kia Dailey [facility] FIRST TRIMESTER LESS THAN 14 WEEKS WITH TRANSVAGINAL 2022-08-11 17:58:08 Kia Dailey [facility] ABORH CONFIRMATION (LAB ONLY) 2022-08-11 16:12:[address] [facility] ABORH CONFIRMATION (LAB ONLY) 2022-08-11 16:12:[address] [facility] HB ABO GROUPING 2022-08-11 14:48:00 Kia Dailey Un [facility] HB ABO GROUPING 2022-08-11 14:48:00 [facility] 2022-08-11 14:42:00 Kia Dailey [facility] MAGNESIUM 2022-08-11 14:42:00 Kia Dailey [facility] COMP. METABOLIC PANEL (86088) 2022-08-11 14:42:[address] [facility] TOTAL BETA HCG ASSAY 2022-08-11 14:42:[address] [facility] CBC WITH DIFF 2022-08-11 14:42:00 Kia Dailey [facility] URINALYSIS 2022-08-11 14:42:00 [facility] 2022-08-11 14:42:00 Kia Dailey [facility] MAGNESIUM 2022-08-11 14:42:00 Kia Dailey [facility] COMP. METABOLIC PANEL (84586) 2022-08-11 14:42:[address] [facility] TOTAL BETA HCG ASSAY 2022-08-11 14:42:[address] [facility] CBC WITH DIFF 2022-08-11 14:42:00 Kia Dailey Kimmy [facility] URINALYSIS 2022-08-11 14:42:00 Juany Burk Un [facility] CONSENT/REFUSAL FOR DIAGNOSIS AND TREATMENT 2022-08-11 14:23:47 Doctor Unassigned, [place] [facility] CONSENT/REFUSAL FOR DIAGNOSIS AND TREATMENT 2022-08-11 14:23:47 Doctor Unassigned, [place] [facility] FIRST TRIMESTER LESS THAN 14 WEEKS WITH TRANSVAGINAL 2022-08-09 19:12:[address] [facility] POCT TEST 2022-08-08 00:00:[address] [facility] DSU PRE-OP 2021-10-28 06:01:00 Doctor Unass igned, [place] [facility] POCT URINALYSIS W/O SPECIFIC GRAVITY 2021-10-28 00:00:[address] [facility] CONSENT/REFUSAL FOR DIAGNOSIS AND TREATMENT 2021-10-15 00:42:20 Doctor Unassigned, [place] [facility] POCT TEST 2021-01-29 16:14:[address] [facility] URINALYSIS 2021-01-29 16:11:00 Catalina Lowery [facility] COMP. METABOLIC PANEL (40249) 2021-01-29 14:24:[address] [facility] CBC WITH DIFF 2021-01-29 14:24:00 Catalina Lowery [facility] NOTICE OF PRIVACY PRACTICES 2021-01-29 13:58:25 Doctor Unassigned, [place] [facility] NOTICE OF PRIVACY PRACTICES 2021-01-29 13:58:11 Doctor Unassigned, Cl[place] [facility] Plan of Care Planned Activity Planned Date Details Comments Source Goal Plan of Care Note [code = 64201-0] Goal Plan of Care Note [code = 50063-3] Goal Plan of Care Note [code = 21615-9] Goal Plan of Care Note [code = 17538-2] Goal Plan of Care Note [code = 87822-5] Goal Plan of Care Note [code = 41842-6] Goal Plan of Care Note [code = 40851-3] Encounters Start Date/Time End Date/Time Encounter Type Admission Type Attending [facility] Facility Care Department Encounter ID Source 2023-09-20 00:00:00 2023-09-20 00:00:00 Outpatient GC_GCBZW_Ka diyala_S PRIV PRIV [id number] [facility] 2023-09-19 00:00:00 2023-09-19 00:00:00 Outpatient GC_GCBZW_Ka diyala_S PRIV PRIV [id number] [facility] 2023-08-14 15:26:56 2023-08-14 15:26:56 Outpatient SFA [facility] 0925 Wai Carrion Danny 2023-07-21 15:42:22 2023-07-21 15:42:22 Outpatient SFA [facility] 0901 Wai Carrion Danny 2023-07-13 15:21:32 2023-07-13 15:21:32 Outpatient SFA [facility] [id number] 0824 Wai Carrion Danny 2023-04-24 15:32:18 2023-04-24 15:32:18 Outpatient SFA [facility] [id number] Wai Carrion Danny 2023-04-20 17:05:18 2023-04-20 17:05:18 Outpatient SFA [facility] [id number] Wai Carrion Danny 2023-03-06 13:30:00 2023-03-06 13:30:00 Outpatient R MATHEUS GARBER CHERYAL [facility] [id number] General acute hospital 2022-09-05 15:00:00 2022-09-05 15:40:27 Outpatient R MATHEUS GARBER [facility] [id number] General acute hospital 2022-09-05 15:00:00 2022-09-05 15:40:27 Office Visit Matheus Garber [facility] 1.0.114 350.1.13.10 4.2.7.2.686 [id number] General acute hospital 2022-09-03 00:00:00 2022-09-03 00:00:00 Nurse Triage Arlen Madden [facility] 1..114 350.1.13.10 4.2.7.2.686 [id number] General acute hospital 2022-08-31 12:45:00 2022-08-31 13:00:00 Residential Sales Representative Visit Barrie, Ke[facility] Main Matheus Garber [facility] 1.2.114 350.1.13.10 4.2.7.2.686 [id number] General acute hospital 2022-08-31 12:45:00 2022-08-31 12:45:00 Outpatient R MATHEUS GARBER [facility] [id number] General acute hospital 2022-08-31 00:00:00 2022-08-31 00:00:00 Case Management Matheus Garber [facility] 1.2.114 350.1.13.10 4.2.7.2.686 [id number] General acute hospital 2022-08-16 16:30:00 2022-08-16 16:59:16 Outpatient R MATHEUS GARBER [facility] [id number] General acute hospital 2022-08-16 16:30:00 2022-08-16 16:59:16 Office Visit Matheus Garber [facility] 1.2.840.114 350.1.13.10 4.2.7.2.686 [id number] General acute hospital 2022-08-15 14:00:00 2022-08-15 14:00:00 Outpatient R [facility] [id number] General acute hospital 2022-08-15 00:00:00 2022-08-15 00:00:00 Orders Only Doctor Unassigned, [place] [facility] 1.2.840.114 350.1.13.10 4.2.7.2.686 [id number] General acute hospital 2022-08-13 00:00:00 2022-08-13 00:00:00 Nurse Triage Mitchell Acevedo [facility] 1.2.840.114 350.1.13.10 4.2.7.2.686 [id number] General acute hospital 2022-08-12 15:15:00 2022-08-12 15:59:51 Outpatient R MATHEUS GARBER [facility] [id number] General acute hospital 2022-08-12 15:15:00 2022-08-12 15:59:51 [facility] 1.2840.114 350.1.13.10 4.2.7.2.686 [id number] General acute hospital 2022-08-11 09:31:00 2022-08-11 19:05:00 Outpatient X LISSET CALHOUN [facility] [id number] General acute hospital 2022-08-11 09:31:00 2022-08-11 19:05:00 Emergency Ashlie Lisset Jenkins [facility] 1.2.840.114 350.1.13.10 4.2.7.2.686 [id number] General acute hospital 2022-08-11 16:45:00 2022-08-11 18:06:00 Surgery Lisset Calhoun [facility] 1.2.840.114 350.1.13.10 4.2.7.2.686 [id number] General acute hospital 2022-08-11 17:03:00 2022-08-11 18:00:00 Anesthesia Event Roger Dunlap Cherelle [facility] 1.2.840.114 350.1.13.10 4.2.7.2.686 [id number] General acute hospital 2022-08-11 00:00:00 2022-08-11 00:00:00 Telephone Matheus Garber [facility] 1.2.840.114 350.1.13.10 4.2.7.2.686 [id number] 134 [id number] General acute hospital 2022-08-10 07:03:00 2022-08-10 11:45:00 Emergency DIEGO BrandonshaneLorenzo [facility] [id number] [facility] 2022-08-09 13:30:00 2022-08-09 23:59:00 [facility] [id number] General acute hospital 2022-08-09 13:30:00 2022-08-09 23:59:00 Hospital Encounter Matheus Garber [facility] 1.2.840.114 350.1.13.10 4.2.7.2.686 [id number] General acute hospital 2022-08-09 00:00:00 2022-08-09 00:00:00 Case Management Matheus Garber [facility] 1.2.840.114 350.1.13.10 4.2.7.2.686 [id number] 134 [id number] General acute hospital 2022-08-09 00:00:00 2022-08-09 00:00:00 Telephone Matheus Garber [facility] 1.2.840.114 350.1.13.10 4.2.7.2.686 [id number] General acute hospital 2022-08-08 11:00:00 2022-08-08 11:37:42 Outpatient R MATHEUS GARBER [facility] [id number] General acute hospital 2022-08-08 11:00:00 2022-08-08 11:37:42 Initial Visit Matheus Garber [facility] 1.2.840.114 350.1.13.10 4.2.7.2.686 [id number] General acute hospital 2022-08-08 00:00:00 2022-08-08 00:00:00 [facility] 1.2.840.114 350.1.13.10 4.2.7.2.686 [id number] General acute hospital 2022-08-05 09:30:00 2022-08-05 09:30:00 Outpatient R CONCHITAMATHEUS ALEGRIA [facility] [id number] General acute hospital 2022-07-28 00:00:00 2022-07-28 00:00:00 Outpatient Visit [id number] 2021-11-25 16:00:00 2021-11-25 16:00:00 Outpatient R GUANAKITO FOX [facility] [id number] General acute hospital 2021-11-11 15:45:00 2021-11-11 15:45:00 Outpatient R GUANAKITO FOX [facility] [id number] General acute hospital 2021-11-03 16:40:00 2021-11-03 16:40:00 Outpatient R ALEX MERCHANT [facility] [id number] General acute hospital 2021-10-28 14:39:23 2021-10-28 16:29:30 Initial Visit Ramez Lisset Hendricks [facility] 1..840.114 350.1.13.10 4.2.7.2.686 [id number] General acute hospital 2021-10-28 14:30:00 2021-10-28 16:29:30 Outpatient Kathe CALHOUNLISSET [facility] [id number] General acute hospital 2021-10-28 00:00:00 2021-10-28 00:00:00 Orders Only Doctor Unassigned, [place] [facility] 1.840.114 350.1.13.10 4.2.7.2.686 [id number] General acute hospital 2021-10-14 18:50:00 2021-10-14 20:22:00 Outpatient X GUANAKITO FOX [facility] [id number] General acute hospital 2021-10-14 18:50:00 2021-10-14 20:22:00 Emergency Guanakito Fox Kev [facility] 1.84.114 350.1.13.10 4.2.7.2.686 [id number] General acute hospital 2021-01-29 08:04:00 2021-01-29 11:39:00 Emergency Catalina Lowery [facility] 1.84.114 350.1.13.10 4.2.7.2.686 [id number] General acute hospital 2021-01-29 08:04:00 2021-01-29 08:04:00 Emergency X CATALINA LOWERY [facility] ERT [id number] General acute hospital Results Test Description Test Time Test Comments Results Result Co mments Source [facility] Only[facility]2022-08-11 17:32:45* Test Item Value Reference Range Interpretation Comme nts ABO & RH (test code = 20) O Positive Performed at [facility] B Laboratory Services - [facility] Blood [address] [place] [id number] Free: [phone] No. [id number] [facility] (QUANTITATIVE)2022-08-11 16:07:11* Test Item Value Reference Range Interpretation Comme nts BETA HCG (test code = 0548818138) See_Comment [Automated [employer]] The system which generated this result transmitted reference range: Non- female and male patients: <5 mIU/mL. The reference range was not used to interpret this result as normal/abnormal. TRUNG (test code = TRUNG) Gestational Age ?Range (mIU/mL) 1-10 ?Weeks ?46-10012008-09 Weeks ?49886-94934265-19 Weeks ?8052-82173139-72 Weeks ?5123-273080 Biotin has been reported to cause a negative bias, interpret results relative to patient's use of biotin. [facility] (QUANTITATIVE)2022-08-11 16:07:11* Test Item Value Reference Range Interpretation Comme nts BETA HCG (test code = 3475955567) See_Comment [Automated [employer] ge] The system which generated this result transmitted reference range: Non- female and male patients: <5 mIU/mL. The reference range was not used to interpret this result as normal/abnormal. TRUNG (test code = TRUNG) Gestational Age ?Range (mIU/mL) 1-10 ?Weeks ?32-35994650-53 Weeks ?18936-69732860-69 Weeks ?6128-84833386-60 Weeks ?9073-003929 Biotin has been reported to cause a negative bias, interpret results relative to patient's use of biotin. [facility] Screen - ONCE [id number] 15:46:54 * Test Item Value Reference Range Interpretation Comme nts ABO & RH (test code = 20) O Positive Performed at [facility] Laboratory [facility] Blood [address] Free: [phone] No. [id number] IAT (test code = 1185) Negative Performed at [address] Free: [phone] No. [id number] [facility] and Screen - ONCE [id number] 15:46:54 * Test Item Value Reference Range Interpretation Comme nts ABO & RH (test code = 20) O Positive Performed at [facility] Blood [address] Free: [phone] No. [id number] IAT (test code = 1185) Negative Performed at [facility] Blood [address] Free: [phone] No. [id number] [facility]. METABOLIC PANEL (03926)2022-08-11 15:22:15* Test Item Value Reference Range Interpretation Comme nts NA (test code = 7223036173) 138 mmol/L 135-145 K (test code = 6100961089) 3.8 mmol/L 3.5-5 CL (test code = 0788412598) 104 mmol/L 98-108 CO2 TOTAL (test code = 3779300958) 23 mmol/L 23-31 AGAP (test code = 9101255584) 2-16 BUN (test code = 5524899408) 11 mg/dL 7-23 GLUCOSE (test code = 4476633128) 109 mg/dL 70-110 CREATININE (test code = 7753085875) 0.62 mg/dL 0.5-1.04 TOTAL BILI (test code = 3851333784) 1.0 mg/dL 0.1-1.1 CALCIUM (test code = 5152720332) 9.6 mg/dL 8.6-10.6 T PROTEIN (test code = 8635898536) 6.7 g/dL 6.3-8.2 ALBUMIN (test code = 0720130439) 4.4 g/dL 3.5-5 ALK PHOS (test code = 3881990502) 37 U/L 34-122 ALTv (test code = 1742-6) 80 U/L 5-35 H AST(SGOT) (test code = 8047992112) 98 U/L 13-40 H eGFR (test code = 1216179289) mL/min/1.73m2 TRUNG (test code = TRUNG) Association [...] imaging tests). Lab Interpretation (test code = 59766-2) Abnormal [facility]22-[facility]-22 15:22:15* Test Item Value Reference Range Interpretation Comme nts MAGNESIUM (test code = 6594104987) 2.0 mg/dL 1.7-2.4 Lab Interpretation (test cod e = 79144-6) Normal [facility] MET[facility]OLIC PANEL (04353)2022-08-11 15:22:15* Test Item Value Reference Range Interpretation Comme nts NA (test code = 4467003678) 138 mmol/L 135-145 K (test code = 1287954882) 3.8 mmol/L 3.5-5 CL (test code = 4365846057) 104 mmol/L 98-108 CO2 TOTAL (test code = 9663450327) 23 mmol/L 23-31 AGAP (test code = 8686446940) 2-16 BUN (test code = 7273238401) 11 mg/dL 7-23 GLUCOSE (test code = 1449608361) 109 mg/dL 70-110 CREATININE (test code = 0153340950) 0.62 mg/dL 0.5-1.04 TOTAL BILI (test code = 1989413641) 1.0 mg/dL 0.1-1.1 CALCIUM (test code = 6271131358) 9.6 mg/dL 8.6-10.6 T PROTEIN (test code = 9603923345) 6.7 g/dL 6.3-8.2 ALBUMIN (test code = 9934413405) 4.4 g/dL 3.5-5 ALK PHOS (test code = 6173700830) 37 U/L 34-122 ALTv (test code = 1742-6) 80 U/L 5-35 H AST(SGOT) (test code = 6099551559) 98 U/L 13-40 H eGFR (test code = 9375663840) mL/min/1.73m2 TRUNG (test code = TRUNG) Association [...] imaging tests). Lab Interpretation (test code = 88136-5) [facility]normal [facility] 15:22:15* Test Item Value Reference Range Interpretation Comme nts MAGNESIUM (test code = 5058214454) 2.0 mg/dL 1.7-2.4 Lab Interpretation (test cod e = 71752-6) Normal [facility] 15:21:55* Test Item Value Reference Range Interpretation Comme nts LIPASE (test code = 2078014143) 51 U/L 0-220 Lab Interpretation (test cod e = 00396-8) Normal [facility] 15:21:55* Test Item Value Reference Range Interpretation Comme nts LIPASE (test code = 2454619498) 51 U/L 0-220 Lab Interpretation (test cod e = 49052-5) Normal [facility] WITH [id number] 15:04:09* Test Item Value Reference Range Interpretation [...] 35.1 g/dL 31.6-35.1 RDW-SD (test code = 91702-9) 42.2 fL 39-49.9 RDW-CV (test code = 788-0) 13.5 % 12-15.5 PLT (test code = 777-3) See_Comment H [Automated messa ge] The system which generated this result transmitted reference range: 166 - 358 10*3/?L. The reference range was not used to interpret this result as normal/abnormal. MPV (test code = 60868-0) 10.1 fL 9.5-12.9 NRBC/100 WBC (test code = 7350603144) See_Comment [Automated [employer] ssage] The system which generated this result transmitted reference range: 0.0 - 10.0 /100 WBCs. The reference range was not used to interpret this result as normal/abnormal. NRBC x10^3 (test code = 0038737869) See_Comment [Automated messa ge] The system which generated this result transmitted reference range: 10*3/?L. The reference range was not used to interpret this result as normal/abnormal. GRAN MAT (NEUT) % (test code = 770-8) 77.4 % IMM GRAN % (test code = 1533930199) 0.40 % LYMPH % (test code = 736-9) 14.9 % MONO % (test code = 5905-5) 6.8 % EOS % (test code = 713-8) 0.3 % BASO % (test code = 706-2) 0.2 % GRAN MAT x10^3(ANC) (test code = 4692527192) 8.79 10*3/uL 1.88-7.09 H IMM GRAN x10^3 (test code = 6242887474) 0.04 10*3/uL 0-0.06 LYMPH x10^3 (test code = 731-0) 1.69 10*3/uL 1.32-3.29 MONO x10^3 (test code = 742-7) 0.77 10*3/uL 0.33-0.92 EOS x10^3 (test code = 711-2) 0.03 10*3/uL 0.03-0.39 BASO x10^3 (test code = 704-7) 0.01-0.07 Lab Interpretation (test code = 32217-7) Abnormal [facility] WITH [id number] 15:04:09* Test Item Value Reference Range Interpretation [...] 35.1 g/dL 31.6-35.1 RDW-SD (test code = 14138-6) 42.2 fL 39-49.9 RDW-CV (test code = 788-0) 13.5 % 12-15.5 PLT (test code = 777-3) See_Comment H [Automated messa ge] The system which generated this result transmitted reference range: 166 - 358 10*3/?L. The reference range was not used to interpret this result as normal/abnormal. MPV (test code = 06724-3) 10.1 fL 9.5-12.9 NRBC/100 WBC (test code = 4577881064) See_Comment [Automated me ssage] The system which generated this result transmitted reference range: 0.0 - 10.0 /100 WBCs. The reference range was not used to interpret this result as normal/abnormal. NRBC x10^3 (test code = 1469591554) See_Comment [Automated messa ge] The system which generated this result transmitted reference range: 10*3/?L. The reference range was not used to interpret this result as normal/abnormal. GRAN MAT (NEUT) % (test code = 770-8) 77.4 % IMM GRAN % (test code = 2039770208) 0.40 % LYMPH % (test code = 736-9) 14.9 % MONO % (test code = 5905-5) 6.8 % EOS % (test code = 713-8) 0.3 % BASO % (test code = 706-2) 0.2 % GRAN MAT x10^3(ANC) (test code = 9940530821) 8.79 10*3/uL 1.88-7.09 H IMM GRAN x10^3 (test code = 3377244839) 0.04 10*3/uL 0-0.06 LYMPH x10^3 (test code = 731-0) 1.69 10*3/uL 1.32-3.29 MONO x10^3 (test code = 742-7) 0.77 10*3/uL 0.33-0.92 EOS x10^3 (test code = 711-2) 0.03 10*3/uL 0.03-0.39 BASO x10^3 (test code = 704-7) 0.01-0.07 Lab Interpretation (test code = 04085-6) Abnormal [facility]- DUP AB/PEL/SC [id number] 09:21:00 [facility] 1995 Sex: F Name: AISLINN BURK [facility] : 1995 Age/S: 26 / F [address] Unit #: [id number] Loc: [place] [address] Phys: Lorenzo Mcmahan Acct: [id number] Dis Date: Status: REG ER PHONE #: [phone] Exam Date: 08/10/2022 09 FAX #: Reason: PREG, BLEEDING EXAMS: CPT: [id number] DUP A B/PEL/SC COMP 17836 History: pain/bleeding Comparison: None at this time Location: [facility] Transabdominal and endovaginal sonography of the [...] flow identified within both ovaries. IMPRESSION: A singleintrauterine is identified. However, no heartbeat can be identified. According to ultrasound size criteria, the estimated gestational age would be approximately 8 weeks 1 day. These findings are suspicious for intrauterine demise. There is a subchorionic hemorrhage. Electro nically Signed by Latasha Talavera on 08/10/2022 at 0921 Reported and signed by: Milton Talavera M.D. PAGE 1 Signed Report (CONTINUED) Name: AISLINN BURK [facility] : 1995 Age/S: 26 / F [id number] [address] Unit #: [id number] Loc: [place] [address] Phys: Lorenzo Mcmahan DO Acct: [id number] Dis Date: Status: REG ER PHONE #: [phone] Exam Date: 08/10/2022 0908 FAX#: Reason: PREG, BLEEDING EXAMS: CPT: [id number] DUP AB/PEL/SC COMP 71838 (Continued) CC: Leroy Ryan MD; Lorenzo Mcmahan DO Technologist: Hallie Garcia [facility] Date/Time: 08/10/2022 (920) [email or web address] 2 Signed Report Name: AISLINN BURK [facility] : 1995 Age/S: 26 / F [id number] [address] Unit #: [id number] Loc: [place] [address] Phys: Lorenzo Mcmahan DO Acct: [id number] Dis Date:Status: REG ER PHONE #: [phone] Exam Date: 08/10/2022 0908 FAX #: Reason: PREG, BLEEDING EXAMS: CPT: [id number] DUP AB/PEL/SC COMP 88480 (Continued) Orig Print D/T: S: 08/10/2022 (09) Probe: BRITTNY HOFF 3 Signed Report- US PREG 1ST [id number] 09:21:00 [facility] 1995 Sex: F Name: AISLINN BURK : 1995 Age/S: 26 / F [id number] [address] Unit #: [id number] Loc: [place] [address] Phys: Lorenzo Mcmahan DO Acct: [id number] Dis Date: Status: REG ER PHONE #: [phone] Exam Date: 08/10/2022906 FAX #: Reason: pain/bleeding EXAMS: CPT: [id number] US PREG 1ST TRIMTR 69599 History: pain/bleeding Comparison: None at this time Location: [facility] Transabdominal and endovaginal sonography of the [...] BURK : 1995 Age/S: 26 / F [id number] [address] Unit #: [id number] Loc: [place] [address] Phys: AleksandrshaneLorenzo DO Acct: [id number] Dis Date: Status: REG ER PHONE #: [phone] Exam Date: 08/10/2022906 FAX #: Reason: pain/bleeding EXAMS: CPT: [id number] US PREG 1ST TRIMTR 99061 (Continued) CC: Lorenzo Mcmahan DO Technologist: Hallie Garcia Trnscb Date/Time: 08/10/2022 (920) IfrahPMT PAGE 2 Signed Report Name: AISLINN BURK [place] : 1995 Age/S: 26 / F [id number] [address] Unit #: [id number] Loc: [place] [address] Phys: Lorenzo Mcmahan DO Acct: [id number] Dis Date: Status: REG ER PHONE #:[phone] Exam Date: 08/10/2022906 FAX #: Reason: pain/bleeding EXAMS: CPT: [id number] US [id number] TRIMTR 68542 (Continued) Orig Print D/T: S: 08/10/2022 (924) Probe: PAGE 3 Signed Report- US TRANSVAGINAL NON [id number] 09:21:00 [facility] 1995 Sex: F Name: AISLINN BURK [place] : 1995 Age/S: 26 / F [id number] [address] Unit #: [id number] Loc: [place] [address] Phys: Lorenzo Mcmahan DO Acct: [id number] Dis Date: Status: REG ER PHONE #: [phone] Exam Date: 08/10/2022907 FAX #: Reason: pain/bleeding EXAMS: CPT: [id number] [place] [address] History: pain/bleeding Comparison: None at this time [...] flow identified within both ovaries. IMPRESSION: A singleintrauterine is identified. However, no heartbeat can be identified. According to ultrasound size criteria, the estimated gestational age would be approximately 8 weeks 1 day. These findings are suspicious for intrauterine demise. There is a subchorionic hemorrhage. at 0921 Reported and signed by: Milton Talavera M.D. PAGE 1 Signed Report (CONTINUED) Name: AISLINN BURK [place] : 1995 Age/S: 26 / F [address] [facility] Unit #: [id number] Loc: [place] [address] Phys: Lorenzo Mcmahan DO Acct: [id number] Dis Date: Status: REG ER PHONE #: [phone] Exam Date: 08/10/2022907 FAX #: Reason: pain/bleeding EXAMS: CPT: [id number] [place] [address] (Continued) CC: Lorenzo Mcmahan DO Technologist: Hallie Garcia [facility] Date/Time: 08/10/2022 (920) Veronica PAGE 2 Signed Report Name: AISLINN BURK [place] : 1995 Age/S: 26 / F [address] [address] Unit #: [id number] Loc: [place] [address] Phys: Lorenzo Mcmahan DO Acct: [id number] Dis Date: Status: REG ER PHONE #: [phone] Exam Date: 08/10/2022 09 FAX #: Reason: pain/bleeding EXAMS: CPT: [id number] [place] [address] (Continued) Orig Print D/T: S: 08/10/2022 (0925) Probe: [id number] PAGE 3 Signed ReportHCG [id number] 08:39:00* Test Item Value Reference Range Interpretation Comme nts HCG SERUM (test code = HCG) 55275 mi-IU/ML 0-6 H 0 - 6 NOT PREGNA NT > 6 SUGGESTIVE OF EARLY RISES TWO FOLD EVERY 2 DAYS; SUGGEST RECONFIRMING AFTER 2 DAYS. 150,000-200,[address] TRIMESTER 10,000 - 50,000 2ND & 3RD TRIMESTER UA RFLX MICR CULT IF [id number] 08:26:00* Test Item Value Reference Range Interpretation [...] Indication for culture: RiskForSepsis-no oth srcBASIC METABOLIC [id number] 08:10:00* Test Item Value Reference Range Interpretation [...] CA) 10.0 MG/DL 8.5-10.1 N HEPATIC FUNCTION [id number] 08:10:00* Test Item Value Reference Range Interpretation [...] code = ALKP) 34 Unit/L 45-117 L [id number] 08:10:00* Test Item Value Reference Range Interpretation Comme nts LIPASE (test code = LIP) 29 Unit/L 114-286 L CBC W/AUTO [id number] 07:59:00* Test Item Value Reference Range Interpretation [...] ode = MDIFF) NO DIFF/SCN CRITERIA POCT [id number] 16:30:00* Test Item Value Reference Range Interpretation Comme nts POCT PREG (test code = 1605) Positive On board controls acceptable with C Line (test code = 3574) Yes POCT PREG LOT # (test code = 3575) POCT PREG TEST DATE ( test code = 3576) [facility] [id number] 09:51:52SPECIMEN NUMBER: [id number] CULTURE, URINE SPECIMEN NUMBER: [id number] SPECIMEN COMMENT: URINE SOURCE: URINE REPORT STATUS: FINAL FINAL REPORT: 07/30/2022 10-50,000 CFU/ML UROGENITAL YANNI PRESENT NO COMMON PATHOGENSCBC W/AUTO DIFF WITH [id number] 08:02:01* Test Item Value Reference Range Interpretation [...] 0.00-0.10 ABS NUCLEATED RBCS (test code = 92172) 0.00 K/UL 0.00-0.11 HCG, [id number] 06:09:47* Test Item Value Reference Range Interpretation Comme nts HCG, QUANTITATIVE (test code = 2506) 39564 MIU/ML SEE BELOW EXPEC ARTURO VALUES FOR [...] . . . . . . MIU/ML 6-1CVGB-JQMYKFLBVV FEMALES . . . . . . . . . . . . MIU/ML <=7 UNLESS OTHERWISE INDICATED, ALL TESTING PERFORMED [facility] [address] [place] [address] DOWEL STICKER OPERATOR: SHIRA SUE M.D. CLIA NUMBER [id number] [facility] [place]. [id number] POCT URINALYSIS W/O SPECIFIC [id number] 21:04:00* Test Item Value Reference Range Interpretation [...] = 3257) N/A Negative - Negati ve [facility] HospitalURINALYSIS2021-03-12 16:50:35* Test Item Value Reference Range Interpretation Comme nts APPEARANCE (test code = 7521322414) Hazy Clear A COLOR (test code = 2758892882) Yellow Yellow PH (test code = 8984992200) 4.8-8.0 SP GRAVITY (test code = 7826658063) 1.003-1.030 GLU U QUAL (test code = 7886146142) Normal Normal BLOOD (test code = 8896122009) Negative Negative KETONES (test code = 9698946759) 20 mg/dL Negative A PROTEIN (test code = 2887-8) Negative Negative UROBILIN (test code = 2056762138) 2.0 mg/dL Normal A BILIRUBIN (test code = 7336969488) Negative Negative NITRITE (test code = 3481506345) Negative Negative LEUK KASHMIR (test code = 0285937336) 25/uL Negative A RBC/HPF (test code = 2745796359) See_Comment [Automated messa ge] The system which generated this result transmitted reference range: 0 - 3 HPF. The reference range was not used to interpret this result as normal/abnormal. WBC/HPF (test code = 4854666217) See_Comment H [Automated messa ge] The system which generated this result transmitted reference range: 0 - 5 HPF. The reference range was not used to interpret this result as normal/abnormal. BACTERIA (test code = 7952251812) Moderate Negative A MUCOUS (test code = 7376765871) Marked Negative LPF A SQ EPITH (test code = 5304457096) HPF Lab Interpretation (test code = 44387-1) Abnormal [facility] [id number] 16:14:00* Test Item Value Reference Range Interpretation Comme nts POCT PREG (test code = 1605) negative On board controls acceptable with C Line (test code = 3574) present POCT PREG LOT # (test code = 3575) [id number] POCT PREG TEST DATE ( test code = 3576) 2022-09-19 Lab Interpretation (test cod e = 62494-1) Normal [facility]. METABOLIC PANEL (27625)2021-01-29 15:11:52* Test Item Value Reference Range Interpretation Comme nts NA (test code = 4785967524) 143 mmol/L 135-145 K (test code = 1398042053) 3.2 mmol/L 3.5-5.0 L CL (test code = 1030285981) 102 mmol/L 98-108 CO2 TOTAL (test code = 2914909169) 30 mmol/L 23-31 AGAP (test code = 0310333182) 2-16 BUN (test code = 2522957877) 15 mg/dL 7-23 GLUCOSE (test code = 6166521820) 106 mg/dL 70-110 CREATININE (test code = 1892611893) 0.81 mg/dL 0.50-1.04 TOTAL BILI (test code = 0677173193) 0.9 mg/dL 0.1-1.1 CALCIUM (test code = 6116996789) 9.6 mg/dL 8.6-10.6 T PROTEIN (test code = 5571393120) 7.4 g/dL 6.3-8.2 ALBUMIN (test code = 3665806995) 4.7 g/dL 3.5-5.0 ALK PHOS (test code = 2430841006) 37 U/L 34-122 ALTv (test code = 1742-6) 39 U/L 5-35 H AST(SGOT) (test code = 7018060981) 75 U/L 13-40 H eGFR Calculation (Non-) (test code = 4189714703) mL/min/1.73m2 eGFR Calculation () (test code = 6764123597) mL/min/1.73m2 TRUNG (test code = TRUNG) Association [...] imaging tests). Lab Interpretation (test code = 30031-7) Abnormal [facility] WITH [id number] 14:36:28* Test Item Value Reference Range Interpretation Comme nts WBC (test code = 6690-2) See_Comment [Automated [employer]] The system which generated this result transmitted [...] 34.8 g/dL 31.6-35.1 RDW-SD (test code = 31117-9) 39.2 fL 39.0-49.9 RDW-CV (test code = 788-0) 12.9 % 12.0-15.5 PLT (test code = 777-3) See_Comment [Automated [employer]] The system which generated this result transmitted reference range: 166 - 358 10*3/?L. The reference range was not used to interpret this result as normal/abnormal. MPV (test code = 57676-3) 10.5 fL 9.5-12.9 NRBC/100 WBC (test code = 4466643891) See_Comment [Automated [employer]] The system which generated this result transmitted reference range: 0.0 - 10.0 /100 WBCs. The reference range was not used to interpret this result as normal/abnormal. NRBC x10^3 (test code = 7247738870) <0.01 See_Comment [Automated [employer]age] The system which generated this result transmitted reference range: 10*3/?L. The reference range was not used to interpret this result as normal/abnormal. GRAN MAT (NEUT) % (test code = 770-8) 71.8 % IMM GRAN % (test code = 2660564216) 0.40 % LYMPH % (test code = 736-9) 18.5 % MONO % (test code = 5905-5) 7.8 % EOS % (test code = 713-8) 1.2 % BASO % (test code = 706-2) 0.3 % GRAN MAT x10^3(ANC) (test code = 9550546728) 6.81 10*3/uL 1.88-7.09 IMM GRAN x10^3 (test code = 3436229835) 0.04 10*3/uL 0.00-0.06 LYMPH x10^3 (test code = 731-0) 1.76 10*3/uL 1.32-3.29 MONO x10^3 (test code = 742-7) 0.74 10*3/uL 0.33-0.92 EOS x10^3 (test code = 711-2) 0.11 10*3/uL 0.03-0.39 BASO x10^3 (test code = 704-7) 0.03 10*3/uL 0.01-0.07 [facility]-CoV-2 (COVID-19) by RT-PCR (HIGH RISK) 2021-01-26 00:00:00* Test Item Value Reference Range Interpretation Comme nts SARS-CoV-2 INTERPRETATION (test code = 61612) NEGATIVE SOURCE (test code = 04564) NASOPHARYNGEAL SARS-CoV-2 (COVID-19) by RT-PCR (HIGH RISK)2021-01-26 00:00:00* Test Item Value Reference Range Interpretation Comme nts SARS-CoV-2 INTERPRETATION (test code = 52048) NEGATIVE SOURCE (test code = 81520) NASOPHARYNGEAL Notes Date/Time Note Provider Source 2022-08-10 07:26:00 [id number]+YGCyumclTY3wF q+mHt5BZzWpO8q7Fyt7xzBUatXm1732-14-54D20:26:00 [facility] ([facility])EMERGENCY PROVIDER REPORTREPORT#:[id number] REPORT STATUS: SignedDATE:08/10/22 TIME:725 PATIENT: AISLINN BURK UNIT #: [id number]#: [id number] ROOM/BED:: 97 AGE: 26 SEX: F PCP PHYS: Leroy Cool MDSERVICE AUTHOR: Lorenzo Mcmahan DO * ALL edits [...] Nothing Free Text HPI NotesFree Text HPI PvdwiX8C8 -states she is currently with twins and one of them is nonviable. States she was told that half of her uterus was filled with hemorrhage. Has hadabdominal pain, vaginal bleeding, nausea and vomiting for the past 2 weeks. States [facility]. Risk-Abd Pain F Under 40)( [...] Color NL, Warm, Dry, Turgor NLGenitourinary General Raiser Helper present Female Genitourinary Atraumatic, External genitalia NL, [...] (Auto) (20.5 - 51.1 %) 3.9 L Murray % (Auto) (1.7 - 9.3 %) 1.0 L Eos % (Auto) (0.0 - 6.0 %) 0.0 Baso % (Auto) (0.0 - 2.0 %) 0.1 Neut # (Auto) (1.8 - 7.6 K/mm3) 15.5 H Lymph # (Auto) (0.6 - 3.2 K/mm3) 0.6 Murray # (Auto) (0.3 - 1.1 K/mm3) 0.2 [...] Maternal Serum HCG (0 - 6 mi-IU/ML) 72561 H Urines Urine Color (YEL/STRAW discript) STRAW Urine Appearance (CLEAR discript) TURBID H Urine pH (5.0 - 7.0 pH UNITS) 6.0 Ur Specific [place] (1.005 - 1.030 SG) >=1.030 H Urine [...] hemorrhage. Impression By: Veronica Talavera M.D. Re-Evaluation [facility] )( Re-Evaluation/Progress #1Text/Dict NotePatient states that [...] large subchorionic hemorrhage. Patient has follow-up with DELIMBER OPERATOR.Time of Re-Eval 1005)( Re-Eval Status Improved Re-Evaluation/Progress [...] 122/73 08/10 07 B/P Mean 89 08/10 07 O2 Delivery [...] Incomplete, Understanding Miscarriage: EmotionsAdditional InstructionsFollow-up with your DELIMBER OPERATOR physician in 1 to 2 days at 0917 RPT #: [id number] OF REPORTEDEmergency department qeddxp4402-46-60N55:26:00L.LDWF61949146-9801OZVaw ilable for patient wbrwZIFISZJOUFWHHN9021-36-91T14:17:18 HCAPM"
[2024-02-24] MEDS ORDERED: ACETAMINOPHEN 325 MG TABLET ONE (20:56)
[2024-02-24 21:11] LABS: Specific Gravity 1.021 (1.005-1.030)
[2024-02-24 21:27] LABS: Specific Gravity 1.021 (1.005-1.030); Urine Bacteria None Seen /HPF (<20); Urine Bilirubin NEGATIVE (Negative); Urine Blood Negative (Negative); Urine Clarity Turbid (Clear); Urine Color Light-Yellow (Yellow); Urine Culture Reflex Order NOT NEEDED; Urine Glucose NEGATIVE (Negative); Urine Ketones NEGATIVE (Negative); Urine Micro Reflex YN NO BILL MICROSCOPIC; Urine Mucus 2+ /HPF (None Seen); Urine Nitrite NEGATIVE (Negative); Urine Protein NEGATIVE (Negative); Urine RBC <5 /HPF (None Seen); Urine Urobilinogen Normal (Normal); Urine WBC <5 /HPF (<5); Urine pH 6.5 (5.0-7.0)
[2024-02-24 21:47] LABS: SARS-CoV-2 Antigen CONTROL BLUE LINE VIS/BG OK
[2024-02-24 21:48] LABS: SARS-CoV-2 Antigen Rapid Res Negative (Negative)
--- NOTE | 2024-02-24 23:31 | EDPHYS ---
Physician Documentation [facility] Name: Cely Clancy Age: 28 yrs Sex: Female : 1995 Arrival Date: 02/24/2024 Time: 20:09 Bed 19 Private MD: ED Physician Ameya Ugalde HPI: 02/23 21:00 This 28 yrs old Female presents to ER via Ambulatory with complaints of Fever, Sore cp Throat, Pain. 21:00 The patient reports fever, not measured (subjective). cp 21:00 Onset: The symptoms/episode began/occurred 2 day(s) ago. Associated signs and symptoms: cp Pertinent positives: cough, sore throat, body aches. Severity of symptoms: in the emergency department the symptoms are unchanged despite home interventions. Historical: - Allergies: 20:27 No Known Allergies; tl4 - PMHx: 20:27 Anxiety; depressive disorder; PCOS; Post depression; suicidal ideation (Post tl4 depress); - PSHx: 20:27 section; Cholecystectomy; tl4 - Immunization history:: Adult Immunizations unknown. - Infectious Disease History:: Denies. - Social history:: Smoking status: Reported history of juuling and/or vaping. ROS: 21:05 Constitutional: Positive for body aches, chills, Negative for fever, poor PO intake, cp 21:05 Eyes: Negative for injury, pain, redness, and discharge, cp 21:05 ENT: Positive for sore throat, congestion, Negative for drainage from ear(s), ear pain, difficulty swallowing, difficulty handling secretions, 21:05 Respiratory: Positive for cough, Negative for shortness of breath, wheezing, 21:05 Abdomen/GI: Negative for abdominal pain, vomiting, diarrhea, constipation, 21:05 Skin: Negative for rash, 21:05 Neuro: Negative for altered mental status, dizziness, headache, weakness, 21:05 All other systems are negative, Exam: 21:10 Constitutional: The patient appears in no acute distress, alert, awake, non-toxic, well cp developed, well nourished, 21:10 Head/Face: Normocephalic, atraumatic. cp 21:10 Eyes: Periorbital structures: appear normal, Conjunctiva: normal, no exudate, no injection, Sclera: no appreciated abnormality, Lids and lashes: appear normal, bilaterally, 21:10 ENT: External ear(s): are unremarkable, Ear canal(s): are normal, clear, TM's: dullness, bilaterally, Nose: is normal, Mouth: Lips: moist, Oral mucosa: moist, Posterior pharynx: Airway: no evidence of obstruction, patent, Tonsils: bilaterally enlarged, with erythema, with exudate, Uvula: midline, erythema, that is moderate, 21:10 Neck: ROM/movement: Meningeal signs: are not present, nuchal rigidity, is not appreciated, Lymph nodes: lymphadenopathy is appreciated, anterior cervical nodes, 21:10 Chest/axilla: Inspection: normal, 21:10 Cardiovascular: Rate: normal, 21:10 Respiratory: the patient does not display signs of respiratory distress, Respirations: normal, no use of accessory muscles, no retractions, labored breathing, is not present, Breath sounds: are clear throughout, no decreased breath sounds, no stridor, no wheezing, 21:10 Abdomen/GI: Inspection: abdomen appears normal, 21:10 Skin: no rash present. Vital Signs: 20:27 BP 101 / 75; Pulse 67; Resp 16; Temp 99.1(O); Pulse Ox 100% on R/A; Weight 52.16 kg; tl4 Height 5 ft. 1 in. ; Pain 8/10; 20:59 BP 118 / 79; Pulse 67; Pulse Ox 100% on R/A; tm6 22:14 BP 102 / 66; Pulse 59; Pulse Ox 98% on R/A; tm6 23:17 BP 96 / 73; Pulse 65; Pulse Ox 97% on R/A; tm6 23:43 BP 111 / 73; Pulse 67; Resp 19; Temp 97.8(TE); Pulse Ox 99% on R/A; Pain 2/10; tm6 20:27 Body Mass Index 21.73 (52.16 kg, 154.94 cm) tl4 20:27 Pain Scale: Adult tl4 23:43 Pain Scale: Adult tm6 MDM: 20:34 Patient medically screened. cp 02/23 20:44 Order name: Strep; Complete Time: 22:07 cp 02/23 20:44 Order name: SARS RAPID; Complete Time: 22:07 cp 02/23 20:44 Order name: Influenza Screen (a \T\ B); Complete Time: 22:07 cp 02/23 20:44 Order name: Test, Urine; Complete Time: 22:07 cp 02/23 20:44 Order name: Urinalysis W/Microscopic; Complete Time: 22:07 cp 02/23 22:07 Interpretation: Normal except: [facility] Turbid. cp 02/23 21:41 Order name: Throat Culture EDMS Administered Medications: 20:58 Drug: Acetaminophen PO 650 mg PO once Route: PO; tm6 23:41 Drug: Clindamycin PO 300 mg PO once Route: PO; tm6 23:41 Drug: Viscous Lidocaine Mucous Membrane Liquid (4 %) 5 ml Mucous Membrane once Route: tm6 Mucous Membrane; Disposition Summary: 02/24/24 23:30 Discharge Ordered Notes: Location: Home cp Problem: new cp Symptoms: have improved cp Condition: Stable cp Diagnosis - Acute tonsillitis, unspecified cp Followup: cp - With: Private Physician - When: 2 - 3 days - Reason: Worsening of condition Discharge Instructions: - Discharge Summary Sheet cp - Tonsillitis cp Forms: - Medication Reconciliation Form cp - Thank You Letter cp - Antibiotic Education cp - Prescription Opioid Use cp - Patient Portal Instructions cp - Leadership Thank You Letter cp Prescriptions: - Lidocaine Viscous - take 5 milliliter ORAL route every 4-6 hours As needed; 256 milliliter; cp Refills: 0, Product Selection Permitted - Clindamycin HCl 300 mg Oral Capsule - take 1 capsule ORAL route every 6 hours for 10 days; 40 capsule; Refills: 0, cp Product Selection Permitted - Ibuprofen 600 mg Oral tablet - take 1 tablet ORAL route every 8 hours As needed take with food; 30 tablet; cp Refills: 0, Product Selection Permitted Addendum: 02/26/2024 01:18 Co-signature as Attending Physician, Ameya Ugalde MD I reviewed the patient's care r t provided by the Advanced Practice Provider and agree with the diagnosis and treatment plan. Signatures: Dispatcher [employer] EDMI Mejia Puente PA PA cp Ameya Ugalde MD MD rt Jason Armijo RN RN tm6 Brad Avalos RN RN tl4 Corrections: (The following items were deleted from the chart) 02/23 20:44 20:44 Group A Streptococcus Rapid Sc+BA.LAB.BRZ ordered. EDMS EDMS 20:44 20:44 SARS-COV-2 Antigen Rapid+I.LAB.BRZ ordered. EDMS EDMS 20:44 20:44 Influenza Screen (A \T\ B)+BA.LAB.BRZ ordered. EDMS EDMS 20:44 20:44 Test, Urine+UC.LAB.BRZ ordered. EDMS EDMS 20:44 20:44 Urinalysis W/Microscopic+U.LAB.BRZ ordered. EDMS EDMS
--- NOTE | 2024-02-24 23:31 | ER ---
Nurse's Notes [facility] Name: Cely Clancy Age: 28 yrs Sex: Female : 1995 Arrival Date: 02/24/2024 Time: 20:09 Bed 19 Private MD: Diagnosis: Acute tonsillitis, unspecified Presentation: 02/23 20:27 Chief complaint: Patient states: Pt c/o sore throat, cough, congestion, body aches, tl4 fever/chills x 2 days. Coronavirus screen: chills, congestion, cough unrelated to allergies, fever, muscle pain, runny nose, shaking with chills, sore throat. Ebola Screen: No symptoms or risks identified at this time. Initial Sepsis Screen: Does the patient meet any 2 criteria? No. Patient's initial sepsis screen is negative. Does the patient have a suspected source of infection? No. Patient's initial sepsis screen is negative. Risk Assessment: Do you want to hurt yourself or someone else? Patient reports no desire to harm self or others. Onset of symptoms was February 22, 2024. 20:27 Method Of Arrival: Ambulatory tl4 20:27 Acuity: TOMÁS 4 tl4 Triage Assessment: 20:29 General: Appears uncomfortable, Behavior is calm, cooperative. Pain: Complains of pain tl4 in generalized body aches, throat. EENT: Reports nasal congestion pain in throat. Neuro: Level of Consciousness is awake, alert, obeys commands, Oriented to person, place, time, situation, Moves all extremities. Gait is steady, Speech is normal. Cardiovascular: Capillary refill < 3 seconds Patient's skin is warm and dry. Respiratory: Reports cough that is Airway is patent Respiratory effort is even, unlabored, Respiratory pattern is regular, symmetrical. GI: No deficits noted. No signs and/or symptoms were reported involving the gastrointestinal system. : No deficits noted. No signs and/or symptoms were reported regarding the genitourinary system. Derm: No deficits noted. No signs and/or symptoms reported regarding the dermatologic system. Musculoskeletal: No deficits noted. No signs and/or symptoms reported regarding the musculoskeletal system. Historical: - Allergies: 20:27 No Known Allergies; tl4 - PMHx: 20:27 Anxiety; depressive disorder; PCOS; Post depression; suicidal ideation (Post tl4 depress); - PSHx: 20:27 section; Cholecystectomy; tl4 - Immunization history:: Adult Immunizations unknown. - Infectious Disease History:: Denies. - Social history:: Smoking status: Reported history of juuling and/or vaping. Screenin:59 [facility] ED Fall Risk Assessment (Adult) History of falling in the last 3 months, tm6 including since admission No falls in past 3 months (0 pts) Confusion or Disorientation No (0 pts) Intoxicated or Sedated No (0 pts) Impaired Gait No (0 pts) Mobility Assist Device Used No (0 pt) Altered Elimination No (0 pt) Score/Fall Risk Level 0 - 2 = Low Risk Oriented to surroundings, Maintained a safe environment. Abuse screen: Denies threats or abuse. Denies injuries from another. Nutritional screening: No deficits noted. Tuberculosis screening: No symptoms or risk factors identified. Assessment: 20:59 General: Appears in no apparent distress. Behavior is calm, cooperative. Pain: tm6 Complains of pain in neck Pain does not radiate. Pain currently is 5 out of 10 on a pain scale. Quality of pain is described as sharp, Pain began 1 day ago. Neuro: Level of Consciousness is awake, alert, obeys commands, Oriented to person, place, time, situation. Cardiovascular: No deficits noted. Patient's skin is warm and dry. Respiratory: Airway is patent Respiratory effort is even, unlabored, Respiratory pattern is regular, symmetrical, Breath sounds are clear. GI: No signs and/or symptoms were reported involving the gastrointestinal system. Abdomen is flat, non-distended. : No signs and/or symptoms were reported regarding the genitourinary system. EENT: Throat is reddened has enlarged tonsils Reports pain in throat. Derm: No signs and/or symptoms reported regarding the dermatologic system. Musculoskeletal: No signs and/or symptoms reported regarding the musculoskeletal system. 22:14 Reassessment: Patient appears in no apparent distress at this time. Patient and/or tm6 family updated on plan of care and expected duration. Pain level reassessed. Patient is alert, oriented x 3, equal unlabored respirations, skin warm/dry/pink. 23:18 Reassessment: Patient and/or family updated on plan of care and expected duration. Pain tm6 level reassessed. Patient is alert, oriented x 3, equal unlabored respirations, skin warm/dry/pink. 23:43 Reassessment: Patient appears in no apparent distress at this time. Patient and/or tm6 family updated on plan of care and expected duration. Pain level reassessed. Patient is alert, oriented x 3, equal unlabored respirations, skin warm/dry/pink. Vital Signs: 20:27 BP 101 / 75; Pulse 67; Resp 16; Temp 99.1(O); Pulse Ox 100% on R/A; Weight 52.16 kg; tl4 Height 5 ft. 1 in. ; Pain 8/10; 20:59 BP 118 / 79; Pulse 67; Pulse Ox 100% on R/A; tm6 22:14 BP 102 / 66; Pulse 59; Pulse Ox 98% on R/A; tm6 23:17 BP 96 / 73; Pulse 65; Pulse Ox 97% on R/A; tm6 23:43 BP 111 / 73; Pulse 67; Resp 19; Temp 97.8(TE); Pulse Ox 99% on R/A; Pain 2/10; tm6 20:27 Body Mass Index 21.73 (52.16 kg, 154.94 cm) tl4 20:27 Pain Scale: Adult tl4 23:43 Pain Scale: Adult tm6 ED Course: 20:13 Patient arrived in ED. gm2 20:14 Mejia Puente PA is PHCP. cp 20:14 Ameya Ugalde MD is Attending Physician. cp 20:29 Triage completed. tl4 20:31 Arm band placed on right wrist. tl4 20:41 Jason Armijo, RN is Primary Nurse. tm6 20:55 Urinalysis W/Microscopic Sent. tm6 20:55 Test, Urine Sent. tm6 20:55 Influenza Screen (a \T\ B) Sent. tm6 20:55 SARS RAPID Sent. tm6 20:55 Strep Sent. tm6 20:59 Patient has correct armband on for positive identification. Placed in gown. Bed in low tm6 position. Call light in reach. Side rails up X 1. Provided Education on: plan of care. Client placed on continuous cardiac and pulse oximetry monitoring. NIBP monitoring applied. Pulse ox on. NIBP on. Door closed. Noise minimized. Warm blanket given. 23:43 No provider procedures requiring assistance completed. Patient did not have IV access tm6 during this emergency room visit. Administered Medications: 20:58 Drug: Acetaminophen PO 650 mg PO once Route: PO; tm6 23:41 Drug: Clindamycin PO 300 mg PO once Route: PO; tm6 23:41 Drug: Viscous Lidocaine Mucous Membrane Liquid (4 %) 5 ml Mucous Membrane once Route: tm6 Mucous Membrane; Medication: 20:59 VIS not applicable for this client. tm6 Outcome: 23:30 Discharge ordered by . shahriar 23:41 Patient left the ED. tm6 23:43 Discharged to home ambulatory, with family, tm6 23:43 Condition: stable 23:43 Discharge instructions given to patient, family, Instructed on discharge instructions, follow up and referral plans. medication usage, Demonstrated understanding of instructions, follow-up care, medications, Prescriptions given X 3, Signatures: Mejia Puente PA PA cp Mitchell, Ginger gm2 Jason Armijo RN RN tm6 Brad Avalos RN RN tl4
[2024-02-24] MEDS ORDERED: LIDOCAINE VISCOUS 2% 10ML ORAL SOLN ONE (23:35)
[2024-02-25 08:31] VITALS: BP 96/73; TEMP 99.1; O2SAT 97
== END 2024-02-24 23:41 | disposition home or self-care (01) ==
LOC: ER 20:09
DX: J03.90 Acute tonsillitis, unspecified (principal); Z11.52 Encounter for screening for COVID-19
CPT/HCPCS: 36415; 81001; 81025; 87070; 87081; 87804; 87811; 99284

== ENCOUNTER 2024-05-20 12:42 | Emergency (ER) | payer SELFPAY ==
--- OUTSIDE RECORDS SUMMARY | 2024-05-20 12:48 | XMS REPORT | Continuity of Care Document ---
Author Name Unknown Address [address] [facility] 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 Role Phone Johnson [employer]PL[employer] CAPTAIN, Donna Primary Care Physician JUANY BURK Attending Clinician Unavailab Juany Pichardo DO Attending Clinician [phone] [email or web address] Attending Clinician UnavailARLYN Allen Attending Clinician UnavailARLYN Allen Attending Clinician Unavailhilda Madden RN, Arlen Morillo Attending Clinician Unavailable Pob, [facility] Main Attending Clinician UnavailLISSET Betts Attending Clinician Unavailable Doctor Unassigned, Smithers Attending Clinician Edison Acevedo RN, Mitchell Longoria Attending Clinician Kia Cody Attending Clinician [phone] Lisset Calhoun MD Attending Clinician [phone] Roger Dunlap MD Attending Clinician Lorenzo Mcmahan Attending Clinician Unavailable GUANAKITO FOX Attending Clinician Unavailable ALEX MERCHANT Attending Clinician Unavail able Dominique WADE, Guanakito Law Attending Clinician [phone] José Miguel Lowery DO Attending Clinician JOSÉ MIGUEL LOWERY Attending Clinician Unavailable [email or web address] Admitting Clinician Unavaila ble JANESSA, LISSET Longoria Admitting Clinician Unavailable Lisset Calhoun MD Admitting Clinician [phone] Leroy Cool Admitting Clinician Unavailab ARLYN Gregory Admitting Clinician Unavaila ble DOMINIQUE, GUANAKITO LAW Admitting Clinician Unavailable Guanakito Fox MD Admitting Clinician [phone] Payers Payer Name Policy Type Policy Number Effective Date Expirati on Date Source [facility] [id number] 2018 00:00:00 Problems Condition Name Condition Details Condition Category Status Onset Date Resolution Date Last Treatment Date Treating Clinician Comments Source Missed Missed Disease Active 08-11 00:00: 00 [facility] Abdominal pain affecting Abdominal pain affecting Disease Active 08-11 00:00: 00 [facility] Nausea and vomiting during Nausea and vomiting during Disease Active 08-11 00:00: 00 [facility] Vaginal bleeding affecting early Vaginal bleeding affecting early Disease Active 08-09 00:00: 00 [facility] Anxiety Anxiety Disease Active 08-09 00:00: 00 [facility] Vaginal bleeding in Vaginal bleeding in Disease Active 08-09 00:00: 00 [facility] Iron deficiency anemia Iron deficiency anemia Disease Active - 00:00: 00 [facility] delivery delivered delivery delivered Disease Active - 00:00: 00 [facility] delivery delivered delivery delivered Disease Active 12-14 00:00: 00 [facility] COVID-19 virus infection COVID-19 virus infection Disease Active 12-14 00:00: 00 [facility] labor in third trimester with delivery labor in third trimester with delivery Disease Active 12-14 00:00: 00 [facility] Encounter for tubal ligation counseling Encounter for tubal ligation counseling Disease Active 2020-11 00:00: 00 [facility] High-risk in third trimester High-risk in third trimester Disease Active 2020-11 00:00: 00 [facility] Previous section Previous section Disease Active 2020-11 00:00: 00 [facility] History of depression History of depression Disease Active 2020-11 00:00: 00 [facility] History of anxiety History of anxiety Disease Active 2020-11 00:00: 00 [facility] Obesity during Obesity during Disease Active 2020-11 00:00: 00 [facility] Obesity (BMI 30-39.9) Obesity (BMI 30-39.9) Disease Active 2020-11 00:00: 00 [facility] History of section History of section Disease Active 2020-11 0-28 00:00: 00 Overview: Formattin g of this note might be different from the original. Formattin g of this note might be different from the original. Desires trial of labor.Raul ared for trial of labor. epsPatien t declines trial of labor now.Prete rm labor. [facility] Episodic mood disorder Episodic mood disorder Disease Active 30 00:00: 00 [facility] Arcuate uterus Arcuate uterus Disease Active 07-30 00:00: 00 [facility] MTHFR mutation MTHFR mutation Disease Active 07-30 00:00: 00 [facility] Generalize d abdominal pain Generalize d abdominal pain Disease Active 4-15 00:00: 00 [facility] Contracept brennon management Contracept brennon management Disease Active 01-20 00:00: 00 [facility] Vaginal bleeding Vaginal bleeding Disease Active 01-20 00:00: 00 [facility] Allergies, Adverse Reactions, Alerts Allergy Name Allergy Type Status Severity Reaction(s) Onset Date Inactive Date Treating Clinician Comments Source No Known Allergie s DA Active U 9 00:00: 00 [facility] NO KNOWN ALLERGIE S Drug Class Active [facility] Social History Social Habit Start Date Stop Date Quantity Comments Source ASSERTION 2021-04-23 00:00:00 [facility] History of tobacco use Current smoker [facility] Sexual orientation [facility] Alcohol intake 2024-03-15 00:00:00 2024-03-15 00:00:00 0 /d [facility] Exposure to SARS-CoV-2 (event) 2022-08-05 00:00:00 2022-08-15 10:54:00 Not sure [facility] Tobacco use and exposure 2022-08-08 00:00:00 2022-08-08 00:00:00 Smokeless tobacco non-user [facility] History of Social function 2022-08-08 00:00:00 2022-08-08 00:00:00 [facility] Sex Assigned At 1995 00:00:00 1995 00:00:00 [facility] Smoking Status Start Date Stop Date Source Ex-smoker 2022-08-08 00:00:00 2022-08-08 00:00:00 [facility] Medications Ordered Medication Name Filled Medication Name Start Date Stop Date Current Medication? Ordering Clinician Indication Dosage Frequency Signature (SIG) Comments Components Source albuterol (PROVENTIL) 2.5 mg /3 mL (0.083 %) nebulizer solution 5 mg 03-16 04:30: 00 03-16 03:52 :00 No 5mg 5 mg, Inhalation , ONCE, 1 dose, On Mon03/15/24 at 2330, BRIGID [facility] predniSONE (DELTASONE) tablet 50 mg 03-16 03:45: 00 03-16 03:49 :00 No 50mg 50 mg, Oral, ONCE, 1 dose, On Mon03/15/24 at 2245, BRIGID [facility] predniSONE 50 mg tablet 03-16 00:00: 00 03-21 04:59 :00 Yes [id number] 50mg Take 1 tablet by mouth in the morning for 4 days. [facility] albuterol 2.5 mg /3 mL (0.083 %) nebulizer solution 03-15 00:00: 00 Yes [id number] 2.5mg Inhale 3 mL every 4 (four) hours. May also nebulize one extra every 6 hours. [facility] DESVENLAFAX INE SUCCNT ER 50 MG 2022-11 0 00:00: 00 Yes 50 Wai Delgado REXULTI 0.5 MG 07-25 00:00: 00 Yes Wai Sheyla Delgado NORETHINDRO NE 0.35 MG 07-11 00:00: 00 Yes 35 Wai Delgado CLONAZEPAM 1 MG 07-10 00:00: 00 Yes Wai Delgado TRAZODONE 50 MG 07-10 00:00: 00 Yes Wai Sheyla Danny CALL 911. SPR CONTENTS OF ONE SPRAYER (0.1ML) INTO ONE NOSTRIL. REPEAT IN 2-3 MIN IF SYMPTOMS OF OPIOID EMERGENCY PERSIST, ALTERNATE NOSTRILS 07-10 00:00: 00 Yes Wai Sheyla Danny HYDROXYZINE HCL 25 MG 07-08 00:00: 00 Yes Wai Sheyla Delgado PREDNISONE 10 MG 07-07 00:00: 00 Yes Wai Sheyla Danny INHALE 2 PUFFS BY MOUTH TWICE DAILY 07-07 00:00: 00 Yes Wai Sheyla Danny BENZONATATE 100 MG CAPSULE 07-03 00:00: 00 Yes Wai Delgado LEVOFLOXACI N 500 MG 07-03 00:00: 00 Yes Wai Sheyla Delgado PREDNISONE 20 MG 07-03 00:00: 00 Yes Wai Sheyla Danny IPRATROPIUM INHAL SOLN 25 X 2.5ML 8-14 00:00: 00 Yes Wai Delgado ALBUTEROL 0.083%(2.5M G/3ML) 60X3ML 8-14 00:00: 00 Yes Wai Delgado DESVENLAFAX INE ER SUCCINATE 50MG T 7-31 00:00: 00 Yes 50 Wai Delgado ZOLPIDEM TARTRATE 10 MG 7-31 00:00: 00 Yes 10 Wai Delgado NORETHINDRO NE 0.35 MG - 00:00: 00 Yes Wai Delgado TAKE 1 TABLET TWICE DAILY UNTIL FINISHED. 04-20 00:00: 00 12-31 00:00 :00 No 500 Wai Delgado TAKE 1 TABLET DAILY. 04-20 00:00: 00 12-31 00:00 :00 No 35 Wai Delgado DIAZEPAM 10MG TABLETS - 00:00: 00 Yes Wai Delgado GABAPENTIN 100MG CAPSULES 5-09 00:00: 00 Yes Wai Delgado CLONAZEPAM 0.5 MG 5-09 00:00: 00 Yes 5 Wai Delgado TAKE ONE CAPSULE BY MOUTH EVERY 8 HOURS UNTIL ALL TAKEN. 5-04 00:00: 00 Yes Wai Delgado TAKE 1 TABLET BY MOUTH EVERY 4 TO 6 HOURS NEEDED FOR PAIN 5-04 00:00: 00 Yes Wai Delgado GABAPENTIN 100 MG CAPSULE -11 00:00: 00 Yes Wai Delgado TAKE 1 TABLET BY MOUTH DAILY AT BEDTIME -11 00:00: 00 Yes Wai Delgado FLUCONAZOLE 150 MG 4-08 00:00: 00 Yes Wai Delgado TAKE ONE CAPSULE BY MOUTH EVERY 8 HOURS UNTIL ALL TAKEN -08 00:00: 00 Yes Wai Delgado DESVENLAFAX INE SUCCNT ER 100MG 4- 00:00: 00 Yes Wai Delgado DEXTROAMP-A MPHETAMIN 15 MG 4-01 00:00: 00 Yes 15 Wai Delgado TRAMADOL HCL 50 MG 2023-0 3-30 00:00: 00 Yes Wai Delgado CLINDAMYCIN HCL 300 MG CAPSULE 0 3-27 00:00: 00 Yes Wai Delgado FLUCONAZOLE 150 MG 0 3-27 00:00: 00 Yes 150 Wai Delgado PROPRANOLOL 20 MG 0 2-27 00:00: 00 Yes Wai Delgado CLONAZEPAM 0.5 MG 0 2-27 00:00: 00 Yes Wai Delgado ZOLPIDEM TART ER 12.5 MG 0 2- 00:00: 00 Yes Wai Delgado DESVENLAFAX INE ER SUCCINATE 100MG T 0 2- 00:00: 00 Yes Wai Delgado D-AMPHETAMI NE SALT COMBO 15MG TABS 0 2- 00:00: 00 Yes Wai Delgado DEXTROAMP-Hilda MPHETAMIN 15 MG 0 1- 00:00: 00 Yes Wai Delgado ALPRAZOLAM 0.5MG TABLETS 0 1- 00:00: 00 Yes Wai Delgado DESVENLAFAX INE ER SUCCINATE 100MG T 0 1- 00:00: 00 Yes Wai Delgado ZOLPIDEM TARTRATE 10 MG 0 1- 00:00: 00 Yes 10 Wai Delgado DEXTROAMP-A MPHETAMIN 20 MG 0 1-17 00:00: 00 Yes Wai Delgado BUPROPION HCL XL 150 MG 0 1-17 00:00: 00 Yes Wai Delgado TAKE ONE TABLET BY MOUTH THREE TIMES DAILY NEEDED 2021-11 2- 00:00: 00 Yes Wai Delgado DEXTROAMP-A MPHETAMIN 15 MG 2021-11 0- 00:00: 00 Yes 15 Wai Delgado DESVENLAFAX INE ER SUCCINATE 50MG T 2021-11 0- 00:00: 00 Yes Wai Delgado METRONIDAZO LE 500 MG 2021-11 0-17 00:00: 00 12-31 00:00 :00 No 500 Wai Delgado metroNIDAZO LE 500 mg tablet 2021-11 0-17 00:00: 00 09-13 04:59 :00 No [id number] 500mg Take 1 tablet by mouth every 12 (twelve) hours for 7 days. [facility] ALPRAZolam 0.5 mg tablet 2021-11 00:00: 00 Yes .5mg Take 0.5 mg by mouth in the morning and 0.5 mg at noon and 0.5 mg in the evening. [facility] propranoloL 20 mg tablet 2021-11 00:00: 00 Yes [facility] TAKE 1/2 TO 1 TABLET BY MOUTH DAILY AT BEDTIME. 2021-11 00:00: 00 Yes Wai Delgado DESVENLAFAX INE SUCCNT ER 25 MG 2021-11 00:00: 00 Yes 25 Wai Delgado DESVENLAFAX INE ER SUCCINATE 50MG T 2021-11 00:00: 00 Yes Wai Delgado ALPRAZOLAM 0.5 MG 2021-11 00:00: 00 Yes 5 Wai Delgado diazePAM 10 mg tablet 08-17 00:00: 00 Yes [facility] DEXTROAMP-A MPHETAMIN 20 MG 08-17 00:00: 00 Yes 20 Wai Delgado TAKE 1/2 TO 1 TABLET BY MOUTH DAILY AT BEDTIME 08-17 00:00: 00 Yes Wai Delgado BUPROPION HCL XL 150 MG 08-17 00:00: 00 Yes 150 Wai Delgado ketorolac (TORADOL) injection 30 mg 08-12 00:15: 00 08-11 23:29 :00 No 30mg 30 mg, Slow IV Push, ONCE, 1 dose, On Mon08/11/22 at 1915, Routine [facility] morpHINE (4 mg/mL) injection 2 mg 08-11 23:11: 20 Yes 2mg 2 mg, Slow IV Push, Q5MIN PRN, 5 doses, Starting on Mon08/11/22 at 1811, Until Discontinu ed, Routine, Pain (scale 4-6), PACU [facility] ondansetron (ZOFRAN (PF)) injection 4 mg 08-11 23:11: 20 Yes 4mg 4 mg, Slow IV Push, PRN, 1 dose, Starting on Donna 08/11/22 at 1811, Until Discontinu ed, Routine, Nausea and Vomiting (N/V), [facility] sugammadex (BRIDION[facility] injection 08-11 22:45: 00 08-11 23:00 :49 No IV Push, ONCE INTRA PROCEDURE, Starting on Donna 08/11/22 at 1745, Until Donna 08/11/22 at 1800, Routine, Intra-op [facility] water for irrigation irrigation solution 08-11 22:28: 00 Yes PRN, Starting on Donna 08/11/22 at 1728, Until Discontinu ed, Routine, [facility] ondansetron (ZOFRAN (PF)) injection 08-11 22:25: 00 08-11 23:00 :49 No Slow IV Push, ONCE INTRA PROCEDURE, Starting on Donna 08/11/22 at 1725, Until Donna 08/11/22 at 1800, Routine, Intra-op [facility] dexamethaso ne (DECADRON PHOSPHATE) injection 08-11 22:16: 00 08-11 23:00 :49 No IV Push, ONCE INTRA PROCEDURE, Starting on Donna 08/11/22 at 1716, Until Donna 08/11/22 at 1800, Routine, Intra-op [facility] doxycycline hyclate (Vibramycin ) capsule 08-11 22:15: 00 08-11 23:00 :49 No Oral, ONCE INTRA PROCEDURE, Starting on Donna 08/11/22 at 1715, Until Donna 08/11/22 at 1800, BRIGID, [facility] rocuronium (ZEMURON) injection 08-11 22:09: 00 08-11 23:00 :49 No IV Push, ONCE INTRA PROCEDURE, Starting on Donna 08/11/22 at 1709, Until Donna 08/11/22 at 1800, Routine, Intra-op [facility] propofoL IV infusion 08-11 22:09: 00 08-11 23:00 :49 No Intravenou s, ONCE INTRA PROCEDURE, Starting on Mon08/11/22 at 1709, Until Mon08/11/22 at 1800, Routine, Intra-op [facility] FENTanyl PF (SUBLIMAZE (PF)) injection 08-11 22:09: 00 08-11 23:00 :49 No Intravenou s, ONCE INTRA PROCEDURE, Starting on Mon08/11/22 at 1709, Until Mon08/11/22 at 1800, Routine, Intra-op [facility] lidocaine 1% (XYLOCAINE) 100 mg/10 mL (1 %) injection 08-11 22:08: 00 08-11 23:00 :49 No Intravenou s, ONCE INTRA PROCEDURE, Starting on Mon08/11/22 at 1708, Until Mon08/11/22 at 1800, Routine, Intra-op [facility] midazolam (VERSED) injection 08-11 22:03: 00 08-26 16:04 :00 No IV Push, ONCE INTRA PROCEDURE, Starting on Mon08/11/22 at 1703, Until Mon08/26/22 at 1104, Routine, Intra-op [facility] lactated ringers IV infusion 08-11 22:03: 00 08-11 23:00 :49 No Intravenou s, CONTINUOUS PRN, Starting on Mon08/11/22 at 1703, Until Mon08/11/22 at 1800, Routine, Intra-op [facility] haloperidol lactate (HALDOL) injection 1 mg 08-11 21:00: 00 08-11 20:57 :00 No 1mg 1 mg, Intravenou s, ONCE, 1 dose, On Mon08/11/22 at 1600, STAT [facility] ondansetron (ZOFRAN (PF)) injection 4 mg 08-11 19:30: 00 08-11 18:32 :00 No 4mg 4 mg, Slow IV Push, ONCE, 1 dose, On Mon08/11/22 at 1430, [facility] famotidine (PEPCID (PF)) injection 20 mg 08-11 19:30: 00 08-11 19:29 :00 No 20mg 20 mg, Slow IV Push, ONCE, 1 dose, On Donna 08/11/22 at 1430, [facility] vit calc,iron,f olic ( VITAMIN ORAL) 08-11 19:16: 17 Yes Take by mouth. [facility] NaCl 0.9% (NS) bolus infusion 1,000 mL 08-11 17:15: 00 08-11 17:30 :00 No 1000mL at 999 mL/hr, 1,000 mL, IV Piggyback, ONCE, 1 dose, On Donna 08/11/22 at 1215, [facility] morpHINE (4 mg/mL) injection 4 mg 08-11 16:45: 00 08-11 16:05 :00 No 4mg 4 mg, Slow IV Push, ONCE, 1 dose, On Donna 08/11/22 at 1145, [facility] proMETHazin e (PHENERGAN) 12.5 mg in NaCl 0.9% (NS) 50 mL IV piggyback 08-11 16:00: 00 08-11 16:09 :00 No 12.5mg 12.5 mg, IV Piggyback, ONCE, 1 dose, On Donna 08/11/22 at 1100, [facility] ondansetron (ZOFRAN (PF)) injection 4 mg 08-11 15:15: 00 08-11 15:11 :00 No 4mg 4 mg, Slow IV Push, ONCE, 1 dose, On Donna 08/11/22 at 1015, [facility] IBUPROFEN 800 MG 08-11 00:00: 00 Yes 800 Wai Delgado ibuprofen 800 mg tablet 08-11 00:00: 00 Yes [id number] 800mg Take 1 tablet by mouth every 6 (six) hours as needed for Alternate with [place] for pain scale 4-6. [facility] methylergon ovine 0.2 mg tablet 08-11 00:00: 00 Yes [id number] 200ug Take 1 tablet by mouth every 6 (six) hours. [facility] TAKE 1 TABLET BY MOUTH IN THE MORNING AND AT NOON AND IN THE EVENING 08-11 00:00: 00 Yes Wai Delgado TAKE 1 TABLET BY MOUTH EVERY 6 HOURS 08-11 00:00: 00 Yes Wai Delgado TAKE 1 TABLET BY MOUTH EVERY 6 HOURS FOR UP TO 7 DAYS NEEDED FOR SEVERE PAIN OR ACUTE PAIN 08-11 00:00: 00 Yes Wai Delgado amoxicillin -pot clavulanate 500 mg (AUGMENTIN) 500-125 mg tablet 08-11 00:00: 00 09-05 00:00 :00 No [id number] 500mg Take 1 tablet by mouth in the morning and 1 tablet at noon and 1 tablet in the evening. [facility] HYDROcodone -acetaminop hen 5-325 mg tablet 08-11 00:00: 00 08-19 04:59 :00 No [id number] 1{tbl} Take 1 tablet by mouth every 6 (six) hours as needed for Pain (scale 7-10) for up to 7 days. Indication s: acute pain [facility] TAKE 1 TABLET BY MOUTH EVERY 8 HOURS NEEDED FOR ANXIETY 08-10 00:00: 00 Yes Wai Delgado ONDANSETRON ODT 8 MG 08-10 00:00: 00 Yes 8 Wai Delgado ondansetron 8 mg disintegrat ing tablet 08-10 00:00: 00 Yes [id number] 8mg Take 1 tablet by mouth every 8 (eight) hours as needed for Nausea and Vomiting (N/V). [facility] vit calc,iron,f olic ( VITAMIN ORAL) 08-08 11:16: 52 Yes Take by mouth. [facility] TRAMADOL-AC ETAMINOPHN 37.5-325 07-28 00:00: 00 No TAKE 1 TABLET BY MOUTH EVERY 8 HOURS FOR UP TO 31 DAYS NEEDED FOR PAIN 07-28 00:00: 00 No TRAMADOL-AC ETAMINOPHN 37.5-325 07-28 00:00: 00 12-31 00:00 :00 No Wai Delgado TAKE 1 TABLET BY MOUTH EVERY 8 HOURS FOR UP TO 31 DAYS NEEDED FOR PAIN 07-28 00:00: 00 12-31 00:00 :00 No Wai Delgado dextroamphe tamine-amph etamine 20 mg tablet 07-07 00:00: 00 Yes [facility] DIAZEPAM 10 MG 07-06 00:00: 00 Yes Unique Delgado zolpidem 10 mg tablet 06-06 00:00: 00 Yes TAKE 1/2 TO 1 TABLET BY MOUTH DAILY AT BEDTIME [facility] desvenlafax ine succinate 50 mg 24 hr tablet 06-03 00:00: 00 Yes [facility] vit calc,iron,f olic ( VITAMIN ORAL) 2020-11 14:57: 53 Yes Take by mouth. [facility] Nitrofurant oin&Nit. Macrocryst 100 mg capsule 2020-11 00:00: 00 10-29 00:00 :00 No [id number] 100mg Take 1 capsule by mouth 2 (two) times daily. [facility] haloperidol lactate (HALDOL) injection 2.5 mg 01-29 16:30: 00 01-29 15:23 :00 No 2.5mg 2.5 mg, Intravenou s, ONCE, 1 dose, Mon01/29/21 at 1030, STAT [facility] diphenhydrA MINE (BENADRYL) injection 25 mg 01-29 15:15: 00 01-29 15:15 :00 No 25mg 25 mg, Slow IV Push, ONCE, 1 dose, Mon01/29/21 at 0915, STAT [facility] haloperidol lactate (HALDOL) injection 2.5 mg 01-29 15:15: 00 01-29 15:15 :00 No 2.5mg 2.5 mg, Intravenou s, ONCE, 1 dose, 01/29/21 at 0915, STAT [facility] ondansetron 4 mg disintegrat ing tablet 01-29 00:00: 00 10-29 00:00 :00 No [id number] 4mg Take 1 tablet by mouth every 8 (eight) hours as needed for Nausea and Vomiting (N/V). [facility] cephALEXin (KEFLEX) 500 mg capsule 01-29 00:00: 00 02-06 04:59 :00 No [id number] 500mg Take 1 capsule by mouth 3 (three) times daily for 7 days. [facility] dicyclomine (BENTYL) 10 mg capsule 01-29 00:00: 00 02-04 04:59 :00 No [id number] 10mg Take 1 capsule by mouth every 8 (eight) hours as needed for Abdominal pain for up to 5 days. [facility] Immunizations Ordered Immunization Name Filled Immunization Name Date Status Comments Source TDAP 2012-11-20 00:00:00 Completed [facility] TDAP 2012-11-20 00:00:00 Completed [facility] TDAP 2012-11-20 00:00:00 Completed [facility] TDAP 2012-11-20 00:00:00 Completed [facility] TDAP 2012-11-20 00:00:00 Completed [facility] TDAP 2012-11-20 00:00:00 Completed [facility] TDAP 2012-11-20 00:00:00 Completed [facility] TDAP 2012-11-20 00:00:00 Completed [facility] TDAP 2012-11-20 00:00:00 Completed [facility] TDAP 2012-11-20 00:00:00 Completed [facility] TDAP 2012-11-20 00:00:00 Completed [facility] TDAP 2012-11-20 00:00:00 Completed [facility] TDAP 2012-11-20 00:00:00 Completed [facility] TDAP 2012-11-20 00:00:00 Completed [facility] TDAP 2012-11-20 00:00:00 Completed [facility] TDAP 2012-11-20 00:00:00 Completed [facility] TDAP 2012-11-20 00:00:00 Completed [facility] TDAP 2012-11-20 00:00:00 Completed [facility] TDAP 2012-11-20 00:00:00 Completed [facility] TDAP 2012-11-20 00:00:00 Completed [facility] TDAP 2012-11-20 00:00:00 Completed [facility] TDAP 2012-11-20 00:00:00 Completed [facility] DTAP 2002-02-27 00:00:00 Completed [facility] Polio (IPV/OPV) 2002-02-27 00:00:00 Completed [facility] MMR 2002-02-27 00:00:00 Completed [facility] Pneumococcal 7 Conjugate, PCV7 (Prevnar7) 2002-02-27 00:00:00 Completed [facility] DTAP 2002-02-27 00:00:00 Completed [facility] MMR 2002-02-27 00:00:00 Completed [facility] Pneumococcal 7 Conjugate, PCV7 (Prevnar7) 2002-02-27 00:00:00 Completed [facility] Polio (IPV/OPV) 2002-02-27 00:00:00 Completed [facility] DTAP 2002-02-27 00:00:00 Completed [facility] Polio (IPV/OPV) 2002-02-27 00:00:00 Completed [facility] MMR 2002-02-27 00:00:00 Completed [facility] Pneumococcal 7 Conjugate, PCV7 (Prevnar7) 2002-02-27 00:00:00 Completed [facility] DTAP 2002-02-27 00:00:00 Completed [facility] MMR 2002-02-27 00:00:00 Completed [facility] Pneumococcal 7 Conjugate, PCV7 (Prevnar7) 2002-02-27 00:00:00 Completed [facility] Polio (IPV/OPV) 2002-02-27 00:00:00 Completed [facility] DTAP 2002-02-27 00:00:00 Completed [facility] Polio (IPV/OPV) 2002-02-27 00:00:00 Completed [facility] MMR 2002-02-27 00:00:00 Completed [facility] Pneumococcal 7 Conjugate, PCV7 (Prevnar7) 2002-02-27 00:00:00 Completed [facility] DTAP 2002-02-27 00:00:00 Completed [facility] MMR 2002-02-27 00:00:00 Completed [facility] Pneumococcal 7 Conjugate, PCV7 (Prevnar7) 2002-02-27 00:00:00 Completed [facility] Polio (IPV/OPV) 2002-02-27 00:00:00 Completed [facility] DTAP 2002-02-27 00:00:00 Completed [facility] Polio (IPV/OPV) 2002-02-27 00:00:00 Completed [facility] MMR 2002-02-27 00:00:00 Completed [facility] [facility] Pneumococcal 7 Conjugate, PCV7 (Prevnar7) 2002-02-27 00:00:00 Completed [facility] DTAP 2002-02-27 00:00:00 Completed [facility] MMR 2002-02-27 00:00:00 Completed [facility] Pneumococcal 7 Conjugate, PCV7 (Prevnar7) 2002-02-27 00:00:00 Completed [facility] Polio (IPV/OPV) 2002-02-27 00:00:00 Completed [facility] DTAP 2002-02-27 00:00:00 Completed [facility] Polio (IPV/OPV) 2002-02-27 00:00:00 Completed [facility] MMR 2002-02-27 00:00:00 Completed [facility] Pneumococcal 7 Conjugate, PCV7 (Prevnar7) 2002-02-27 00:00:00 Completed [facility] DTAP 2002-02-27 00:00:00 Completed [facility] MMR 2002-02-27 00:00:00 Completed [facility] Pneumococcal 7 Conjugate, PCV7 (Prevnar7) 2002-02-27 00:00:00 Completed [facility] Polio (IPV/OPV) 2002-02-27 00:00:00 Completed [facility] TDAP Unknown Completed [facility] TDAP Unknown Completed [facility] Vital Signs Vital Name Observation Time Observation Value Comments S sandy Systolic blood pressure 2024-03-16 04:55:00 115 mm[Hg] [facility] Diastolic blood pressure 2024-03-16 04:55:00 85 mm[Hg] [facility] Heart rate 2024-03-16 04:55:00 107 /min [facility] Respiratory rate 2024-03-16 04:55:00 20 /min [facility] Oxygen saturation in Arterial blood by Pulse oximetry 2024-03-16 04:55:00 98 /min [facility] Body temperature 2024-03-16 03:26:00 37.11 Blanka [facility] Body height 2024-03-16 03:26:00 154.9 cm [facility] Body weight 2024-03-16 03:26:00 54.432 kg [facility] BMI 2024-03-16 03:26:00 22.67 kg/m2 [facility] Systolic blood pressure 2022-09-05 20:16:00 116 mm[Hg] [facility] Diastolic blood pressure 2022-09-05 20:16:00 78 mm[Hg] [facility] Heart rate 2022-09-05 20:16:00 75 /min [facility] Body temperature 2022-09-05 20:16:00 36.67 Blanka [facility] Respiratory rate 2022-09-05 20:16:00 18 /min [facility] Body height 2022-09-05 20:16:00 154.9 cm [facility] Body weight 2022-09-05 20:16:00 52.617 kg [facility] BMI 2022-09-05 20:16:00 21.92 kg/m2 [facility] Systolic blood pressure 2022-08-16 21:29:00 117 mm[Hg] [facility] Diastolic blood pressure 2022-08-16 21:29:00 78 mm[Hg] [facility] Heart rate 2022-08-16 21:29:00 84 /min [facility] Body temperature 2022-08-16 21:29:00 36.94 Blanka [facility] Respiratory rate 2022-08-16 21:29:00 18 /min [facility] Body height 2022-08-16 21:29:00 154.9 cm [facility] Body weight 2022-08-16 21:29:00 55.475 kg [facility] BMI 2022-08-16 21:29:00 23.11 kg/m2 [facility] Systolic blood pressure 2022-08-12 20:22:00 115 mm[Hg] [facility] Diastolic blood pressure 2022-08-12 20:22:00 78 mm[Hg] [facility] Heart rate 2022-08-12 20:22:00 67 /min [facility] Body temperature 2022-08-12 20:22:00 36.78 Blanka [facility] Body height 2022-08-12 20:22:00 154.9 cm [facility] Body weight 2022-08-12 20:22:00 54.976 kg [facility] BMI 2022-08-12 20:22:00 22.90 kg/m2 [facility] Systolic blood pressure 2022-08-11 23:55:00 114 mm[Hg] [facility] Diastolic blood pressure 2022-08-11 23:55:00 69 mm[Hg] [facility] Heart rate 2022-08-11 23:55:00 67 /min [facility] Oxygen saturation in Arterial blood by Pulse oximetry 2022-08-11 23:55:00 100 /min [facility] Respiratory rate 2022-08-11 23:35:00 13 /min [facility] Body temperature 2022-08-11 23:04:00 36.39 Blanka [facility] Body height 2022-08-11 14:29:00 154.9 cm [facility] Body weight 2022-08-11 14:29:00 53.615 kg [facility] BMI 2022-08-11 14:29:00 22.33 kg/m2 [facility] Systolic blood pressure 2022-08-11 23:05:00 107 mm[Hg] [facility] Diastolic blood pressure 2022-08-11 23:05:00 65 mm[Hg] [facility] Heart rate 2022-08-11 23:05:00 88 /min [facility] Oxygen saturation in Arterial blood by Pulse oximetry 2022-08-11 23:05:00 96 /min [facility] Body temperature 2022-08-11 23:04:00 36.39 Balnka [facility] Respiratory rate 2022-08-11 21:27:00 16 /min [facility] Body height 2022-08-11 14:29:00 154.9 cm [facility] Body weight 2022-08-11 14:29:00 53.615 kg [facility] BMI 2022-08-11 14:29:00 22.33 kg/m2 [facility] Systolic blood pressure 2022-08-08 16:18:00 112 mm[Hg] [facility] Diastolic blood pressure 2022-08-08 16:18:00 74 mm[Hg] [facility] Heart rate 2022-08-08 16:18:00 76 /min [facility] Body temperature 2022-08-08 16:18:00 36.67 Blanka [facility] Respiratory rate 2022-08-08 16:18:00 16 /min [facility] Body height 2022-08-08 16:18:00 154.9 cm [facility] Body weight 2022-08-08 16:18:00 54.205 kg [facility] BMI 2022-08-08 16:18:00 22.58 kg/m2 [facility] Oxygen saturation in Arterial blood by Pulse oximetry 2022-08-08 16:18:00 98 /min [facility] Systolic blood pressure 2021-10-28 20:56:00 113 mm[Hg] [facility] Diastolic blood pressure 2021-10-28 20:56:00 75 mm[Hg] [facility] Heart rate 2021-10-28 20:56:00 92 /min [facility] Body temperature 2021-10-28 20:56:00 36.83 Blanka [facility] Respiratory rate 2021-10-28 20:56:00 18 /min [facility] Body height 2021-10-28 20:56:00 154.9 cm [facility] Body weight 2021-10-28 20:56:00 74.39 kg [facility] BMI 2021-10-28 20:56:00 30.99 kg/m2 [facility] Heart rate 2021-10-15 02:00:00 74 /min [facility] Oxygen saturation in Arterial blood by Pulse oximetry 2021-10-15 02:00:00 99 /min [facility] Systolic blood pressure 2021-10-15 01:15:00 111 mm[Hg] [facility] Diastolic blood pressure 2021-10-15 01:15:00 65 mm[Hg] [facility] Body temperature 2021-10-15 01:15:00 36.78 Blanka [facility] Respiratory rate 2021-10-15 01:15:00 18 /min [facility] Body weight 2021-10-15 00:49:00 68.04 kg [facility] Systolic blood pressure 2021-01-29 15:30:00 119 mm[Hg] [facility] Diastolic blood pressure 2021-01-29 15:30:00 81 mm[Hg] [facility] Heart rate 2021-01-29 15:30:00 65 /min [facility] Respiratory rate 2021-01-29 15:30:00 17 /min [facility] Oxygen saturation in Arterial blood by Pulse oximetry 2021-01-29 15:30:00 98 /min [facility] Body temperature 2021-01-29 14:10:00 37.06 Blanka [facility] Body weight 2021-01-29 14:10:00 68.04 kg [facility] BP Diastolic 2023-04-24 15:45:00 77 mm[Hg] Brayden phen F Danny Weight Measured 2023-04-24 15:45:00 111.00 pounds Wai F Danny Height Measured 2023-04-24 15:45:00 63.00 inches Wai F Danny Body Temperature 2023-04-24 15:45:00 98.80 degrees Wai F Danny Heart Rate 2023-04-24 15:45:00 83.00 /min Katlyn en F Danny Respiratory Rate 2023-04-24 15:45:00 17.00 /min Wai F Danny BP Systolic 2023-04-24 15:45:00 115 mm[Hg] Step hen F Danny BP Systolic 2023-04-20 16:47:00 124 mm[Hg] Step hen F Danny BP Diastolic 2023-04-20 16:47:00 79 mm[Hg] Brayden phen F Danny Weight Measured 2023-04-20 16:47:00 110.20 pounds Wai F Danny Height Measured 2023-04-20 16:47:00 63.00 inches Wai F Danny Body Temperature 2023-04-20 16:47:00 98.10 degrees Wai F Danny Heart Rate 2023-04-20 16:47:00 89.00 /min Katlyn en F Danny Respiratory Rate 2023-04-20 16:47:00 Wai F Danny BP Systolic 2022-07-28 14:31:00 106 mm[Hg] Step hen F Danny BP Diastolic 2022-07-28 14:31:00 74 mm[Hg] Brayden phen F Danny Weight Measured 2022-07-28 14:31:00 122.60 pounds Wai F Danny Height Measured 2022-07-28 14:31:00 63.00 inches Wai F Danny Body Temperature 2022-07-28 14:31:00 98.50 degrees Wai F Danny Heart Rate 2022-07-28 14:31:00 77.00 /min Katlyn en F Danny Respiratory Rate 2022-07-28 14:31:00 Wai F Danny Procedures Procedure Date / Time Performed Performing Clinician Source EXTERNAL PROVIDER RECORDS 2022-08-15 05:01:00 Do ctor Unassigned, [place] [facility] US PELVIS LIMITED 2022-08-11 22:51:00 Adum[facility] CURETTAGE 2022-08-11 21:47:00 Adum, Roque Longoria [facility] COVID-19 (ID NOW RAPID TESTING) 2022-08-11 20:13:00 Juany Burk [facility] COVID-19 (ID NOW RAPID TESTING) 2022-08-11 20:13:00 Juany Burk [facility] LAB ONLY COVID INTERPRETATION 2022-08-11 20:13:00 Juany Burk [facility] FIRST TRIMESTER LESS THAN 14 WEEKS WITH TRANSVAGINAL 2022-08-11 17:58:08 Kia Dailey [facility] FIRST TRIMESTER LESS THAN 14 WEEKS WITH TRANSVAGINAL 2022-08-11 17:58:08 Kia Dailey [facility] ABORH CONFIRMATION (LAB ONLY) 2022-08-11 16:12:00 Kia Dailey [facility] ABORH CONFIRMATION (LAB ONLY) 2022-08-11 16:12:00 Kia Dailey [facility] HB ABO GROUPING 2022-08-11 14:48:00 [facility] 2022-08-11 14:48:00 [facility] LIPASE 2022-08-11 14:42:00 Kia Dailey [facility] MAGNESIUM 2022-08-11 14:42:00 [facility] COMP. METABOLIC PANEL (55505) 2022-08-11 14:42:00 Kia Dailey [facility] TOTAL BETA HCG ASSAY 2022-08-11 14:42:00 Ned Burk [facility] CBC WITH DIFF 2022-08-11 14:42:00 Kia Dailey [facility] URINALYSIS 2022-08-11 14:42:00 Juany Burk Un [facility] LIPASE 2022-08-11 14:42:00 Kia Da[facility] MAGNESIUM 2022-08-11 14:42:00 Kia Dailey [facility] COMP. METABOLIC PANEL ([id number]) 2022-08-11 14:42:00 Kia Dailey [facility] TOTAL BETA HCG ASSAY 2022-08-11 14:42:00 Ned Burk [facility] CBC WITH DIFF 2022-08-11 14:42:00 Kia Dailey [facility] URINALYSIS 2022-08-11 14:42:00 Juany Burk Un [facility] CONSENT/REFUSAL FOR DIAGNOSIS AND TREATMENT 2022-08-11 14:23:47 Doctor Unassigned, [place] [facility] CONSENT/REFUSAL FOR DIAGNOSIS AND TREATMENT 2022-08-11 14:23:47 Doctor Unassigned, [place] [facility] US FIRST TRIMESTER LESS THAN 14 WEEKS WITH TRANSVAGINAL 2022-08-09 19:12:00 Arlyn Garber [facility] POCT TEST 2022-08-08 00:00:00 Mare Garber [facility] DSU PRE-OP 2021-10-28 06:01:00 Doctor Unass igned, [place] [facility] POCT URINALYSIS W/O SPECIFIC GRAVITY 2021-10-28 00:00:00 Lisset Calhoun [facility] CONSENT/REFUSAL FOR DIAGNOSIS AND TREATMENT 2021-10-15 00:42:20 Doctor Unassigned, [place] [facility] POCT TEST 2021-01-29 16:14:00 Cayetano Lowery [facility] URINALYSIS 2021-01-29 16:11:00 José Miguel Lowery [facility] COMP. METABOLIC PANEL (39756) 2021-01-29 14:24:00 José Miguel Lowery [facility] CBC WITH DIFF 2021-01-29 14:24:00 José Miguel Lowery [facility] NOTICE OF PRIVACY PRACTICES 2021-01-29 13:58:25 Doctor Unassigned, [place] [facility] NOTICE OF PRIVACY PRACTICES 2021-01-29 13:58:11 Doctor Unassigned, [place] [facility] Plan of Care Planned Activity Planned Date Details Comments Source Goal Plan of Care Note [code = 13453-2] Goal Plan of Care Note [code = 31315-5] Goal Plan of Care Note [code = 27697-2] Goal Plan of Care Note [code = 07251-5] Goal Plan of Care Note [code = 96657-9] Goal Plan of Care Note [code = 55552-8] Goal Plan of Care Note [code = 31986-5] Encounters Start Date/Time End Date/Time Encounter Type Admission Type Attending Clinicians Care Facility Care Department Encounter ID Source 2024-05-12 09:57:04 2024-05-12 09:57:04 Outpatient [facility] [id number] Wai Delgado 2024-05-12 00:00:00 2024-05-12 00:00:00 Outpatient Visit SFA [id number] Wai Carrion Danny 2024-03-15 22:31:00 2024-03-16 00:05:00 Emergency X JUANY BURK [facility] ERT [id number] [facility] 2024-03-15 22:31:00 2024-03-16 00:05:00 Emergency Juany Burk [facility] 1.2.840.114 350.1.13.10 4.2.7.2.686 [id number] [facility] 2023-09-20 00:00:00 2023-09-20 00:00:00 Outpatient GC_GCBZW_Ka diyala_S PRIV PRIV [id number] [facility] 2023-09-19 00:00:00 2023-09-19 00:00:00 Outpatient GC_GCBZW_Ka diyala_S PRIV PRIV [id number] [facility] 2023-08-14 15:26:56 2023-08-14 15:26:56 Outpatient SFA [facility] [id number] Wai Delgado 2023-07-21 15:42:22 2023-07-21 15:42:22 Outpatient SFA [facility] [id number] Wai Delgado 2023-07-13 15:21:32 2023-07-13 15:21:32 Outpatient SFA [facility] [id number] Wai Delgado 2023-04-24 15:32:18 2023-04-24 15:32:18 Outpatient SFA [facility] [id number] Wai Delgado 2023-04-20 17:05:18 2023-04-20 17:05:18 Outpatient [facility] [id number] Wai Delgado 2023-03-06 13:30:00 2023-03-06 13:30:00 Outpatient R ARLYN GARBER [facility] [id number] [facility] 2022-09-05 15:00:00 2022-09-05 15:40:27 Outpatient R ARLYN GARBER [facility] [id number] [facility] 2022-09-05 15:00:00 2022-09-05 15:40:27 Office Visit Arlyn Garber [facility] 1.114 350.1.13.10 4.2.7.2.686 [id number] [facility] 2022-09-03 00:00:00 2022-09-03 00:00:00 Nurse Triage Arlen Madden [facility] 1.114 350.1.13.10 4.2.7.2.686 [id number] [facility] 2022-08-31 12:45:00 2022-08-31 13:00:00 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, Adc Lab Main Arlyn Garber [facility] 1..114 350.1.13.10 4.2.7.2.686 [id number] [facility] 2022-08-31 12:45:00 2022-08-31 12:45:00 Outpatient R ARLYN GARBER [facility] [id number] [facility] 2022-08-31 00:00:00 2022-08-31 00:00:00 Case Management Jcarlos [facility] 1.2840.114 350.1.13.10 4.2.7.2.686 [id number] [facility] 2022-08-16 16:30:00 2022-08-16 16:59:16 Outpatient R ARLYN GARBER [facility] [id number] [facility] 2022-08-16 16:30:00 2022-08-16 16:59:16 [facility] 1.2840.114 350.1.13.10 4.2.7.2.686 [id number] [facility] 2022-08-15 14:00:00 2022-08-15 14:00:00 Outpatient R [facility] [id number] [facility] 2022-08-15 00:00:00 2022-08-15 00:00:00 Orders Only Doctor Unassigned, [place] [facility] 1.2840.114 350.1.13.10 4.2.7.2.686 [id number] [facility] 2022-08-13 00:00:00 2022-08-13 00:00:00 Nurse Triage Mitchell Acevedo [facility] 1.840.114 350.1.13.10 4.2.7.2.686 [id number] [facility] 2022-08-12 15:15:00 2022-08-12 15:59:51 Outpatient R ARLYN GARBER [facility] [id number] [facility] 2022-08-12 15:15:00 2022-08-12 15:59:51 Routine Visit Arlyn Garber [facility] 1.2.840.114 350.1.13.10 4.2.7.2.686 [id number] [facility] 2022-08-11 09:31:00 2022-08-11 19:05:00 Outpatient X LISSET CALHOUN [facility] ARAVIND [id number] [facility] 2022-08-11 09:31:00 2022-08-11 19:05:00 Emergency Kia Dailey Lisset [facility] 1.2.840.114 350.1.13.10 4.2.7.2.686 [id number] [facility] 2022-08-11 16:45:00 2022-08-11 18:06:00 Surgery Lisset Calhoun Swati [facility] 1.2.840.114 350.1.13.10 4.2.7.2.686 [id number] [facility] 2022-08-11 17:03:00 2022-08-11 18:00:00 Anesthesia Event Roger Dunlap S [facility] 1.2.840.114 350.1.13.10 4.2.7.2.686 [id number] [facility] 2022-08-11 00:00:00 2022-08-11 00:00:00 Telephone Arlyn Garber [facility] 1.2.840.114 350.1.13.10 4.2.7.2.686 [id number] [facility] 2022-08-10 07:03:00 2022-08-10 11:45:00 Emergency EM Lorenzo Mcmahan [facility] [id number] [facility] 2022-08-09 13:30:00 2022-08-09 23:59:00 Outpatient R NIDAYVONNE CARVALHOKELLY GARBERYVONNEKELLY [facility] [id number] [facility] 2022-08-09 13:30:00 2022-08-09 23:59:00 Hospital Encounter Arlyn Garber [facility] 1.2.840.114 350.1.13.10 4.2.7.2.686 [id number] [facility] 2022-08-09 00:00:00 2022-08-09 00:00:00 [facility] 1.2.840.114 350.1.13.10 4.2.7.2.686 [id number] [facility] 2022-08-09 00:00:00 2022-08-09 00:00:00 Telephone Jcarlos [facility] 1.2.840.114 350.1.13.10 4.2.7.2.686 [id number] [facility] 2022-08-08 11:00:00 2022-08-08 11:37:42 Outpatient R JCARLOS ARLYN ELLIS [facility] [id number] [facility] 2022-08-08 11:00:00 2022-08-08 11:37:42 [facility] 1.2.840.114 350.1.13.10 4.2.7.2.686 [id number] [facility] 2022-08-08 00:00:00 2022-08-08 00:00:00 Patient Secure Msg Jcarlos [facility] 1.114 350.1.13.10 4.2.7.2.686 [id number] [facility] 2022-08-05 09:30:00 2022-08-05 09:30:00 Outpatient Kathe ARLYN GARBER [facility] [id number] [facility] 2022-07-28 00:00:00 2022-07-28 00:00:00 Outpatient Visit [id number] 2021-11-25 16:00:00 2021-11-25 16:00:00 Outpatient GUANAKITO TEJEDA [facility] [id number] [facility] 2021-11-11 15:45:00 2021-11-11 15:45:00 Outpatient GUANAKITO TEJEDA [facility] [id number] [facility] 2021-11-03 16:40:00 2021-11-03 16:40:00 Outpatient ALEX EASTMAN [facility] [id number] [facility] 2021-10-28 14:39:23 2021-10-28 16:29:30 Initial Visit Guanakito Fox Vivian L [facility] 1..114 350.1.13.10 4.2.7.2.686 [id number] [facility] 2021-10-28 14:30:00 2021-10-28 16:29:30 Outpatient LISSET JAVIER [facility] [id number] [facility] 2021-10-28 00:00:00 2021-10-28 00:00:00 Orders Only Doctor Unassigned, [place] [facility] 1..114 350.1.13.10 4.2.7.2.686 [id number] [facility] 2021-10-14 18:50:00 2021-10-14 20:22:00 Outpatient X GUANAKITO FOX [facility] [id number] [facility] 2021-10-14 18:50:00 2021-10-14 20:22:00 Emergency Guanakito Fox [facility] 1.2.840.114 350.1.13.10 4.2.7.2.686 [id number] [facility] 2021-01-29 08:04:00 2021-01-29 11:39:00 Emergency Singer [facility] 1.2.840.114 350.1.13.10 4.2.7.2.686 [id number] [facility] 2021-01-29 08:04:00 2021-01-29 08:04:00 Emergency X JOSÉ MIGUEL LOWERY [facility] ERT [id number] [facility] Results Test Description Test Time Test Comments Results Result Co mments Source Wai DelgadoHIV 1/2 4TH GEN, RFLX [id number] 00:00:00* Test Item Value Reference Range Interpretation Comme nts HIV 1/2 4TH GEN, RFLX CONF ( test code = 3514) NON-REACTIVE Wai DelgadoGC AND CHLAMYDIA AMPLIFIED, [id number] 00:00:00* Test Item Value Reference Range Interpretation Comme nts CHLAMYDIA, NAAT, THINPREP (t est code = 23862) NEGATIVE GONORRHEA, NAAT, THINPREP (t est code = 20468) NEGATIVE Wai DelgadoPAP TEST, THINPREP, [id number] 00:00:00* Test Item Value Reference Range Interpretation Comme nts SOURCE: (test code = 8001) Cervical SLIDES: (test code = 8011) 1 LMP: (test code = 8021) 04/10/2023 SPECIMEN ADEQUACY: (test code = 59066) (NOTE) INTERPRETATION: (test code = 44290) NILM/NO EPITH. 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 VAGINALIS (test code = ) NEGATIVE T. VAGINALIS (test code = ) NEGATIVE Wai Carrion AustinHPV HIGH RISK WITH GENOTYPE, [id number] 00:00:00* Test Item Value Reference Range Interpretation Comme nts HPV HIGH RISK INTERP (test c ode = 80818) NEGATIVE HPV 16 (test code = 96687) NEGATIVE HPV 18 (test code = 60246) NEGATIVE HPV, HR, OTHER GENOTYPES (te st code = 32125) NEGATIVE Wai Carrion AustinHEPATITIS PROFILE (A,B,C)2023-04-25 00:00:00* Test Item Value Reference Range Interpretation Comme nts HEPATITIS A TOTAL AB (test c ode = 2725) REACTIVE HEPATITIS B SURF AG (test co de = 2739) NON-REACTIVE HEP B CORE TOTAL AB (test co de = 2729) NON-REACTIVE HEPATITIS B SURFACE AB (test code = 2737) NON-REACTIVE HEPATITIS C ANTIBODY (test c ode = 4675) NON-REACTIVE INTERPRETATION HEPATITIS A: (test code = 2552) (NOTE) INTERPRETATION HEPATITIS B: (test code = 53845) (NOTE) INTERPRETATION HEPATITIS C: (test code = 53607) (NOTE) Wai Carrion AustinRPR REFLEX TO T. PALLIDUM - [id number] 00:00:00* Test Item Value Reference Range Interpretation Comme nts RPR (test code = 51196) NON-REACTIVE RPR TITER (test code = 3500) NOT INDIC. TITER Wai Carrion DannyHEPATITIS A IgM [REFLEX]2023-04-25 00:00:00* Test Item Value Reference Range Interpretation Comme nts HEPATITIS A IgM (test code = 2728) NON-REACTIVE Wai Carrion DannyABORH Confirmation (Lab Only)2022-08-11 17:32:45* Test Item Value Reference Range Interpretation Comme nts ABO & RH (test code = 20) O Positive Performed at [facility] Laboratory Services - [facility] Blood [address] [place] [address] Free: [phone] No. [id number] [facility] Only)2022-08-11 17:32:45* Test Item Value Reference Range Interpretation Comme nts ABO & RH (test code = 20) O Positive Performed at [facility] Laboratory Services - [facility] Blood [address] [place] [address] Free: [phone] No. [id number] [facility] (QUANTITATIVE)2022-08-11 16:07:11* Test Item Value Reference Range Interpretation Comme nts BETA HCG (test code = 8109271543) See_Comment [Automated messa ge] The system which generated this result transmitted reference range: Non- female and male patients: <5 mIU/mL. The reference range was not used to interpret this result as normal/abnormal. TRUNG (test code = TRUNG) Gestational Age ?Range (mIU/mL) 1-10 ?Weeks ?80-38431068-94 Weeks ?91074-60683875-53 Weeks ?0021-04110605-30 Weeks ?8690-138179 Biotin has been reported to cause a negative bias, interpret results relative to patient's use of biotin. [facility] (QUANTITATIVE)2022-08-11 16:07:11* Test Item Value Reference Range Interpretation Comme nts BETA HCG (test code = 5234324049) See_Comment [Automated messa ge] The system which generated this result transmitted reference range: Non- female and male patients: <5 mIU/mL. The reference range was not used to interpret this result as normal/abnormal. TRUNG (test code = TRUNG) Gestational Age ?Range (mIU/mL) 1-10 ?Weeks ?51-09680412-09 Weeks ?77363-51123852-95 Weeks ?9851-31323004-19 Weeks ?2952-012037 Biotin has been reported to cause a negative bias, interpret results relative to patient's use of biotin. [facility] Center[facility] and Screen - ONCE [id number] 15:46:54 * Test Item Value Reference Range Interpretation Comme nts ABO & RH (test code = 20) O Positive Performed at [facility] Laboratory [facility] Blood [address] Free: [phone] No. [id number] IAT (test code = 1185) Negative Performed at [place] [address]Toll Free: [phone] No. [id number] [facility] Screen - ONCE [id number] 15:46:54 * Test Item Value Reference Range Interpretation Comme nts ABO & RH (test code = 20) O Positive Performed at [facility] Blood [place] [address]Toll Free: [phone] No. [id number] IAT (test code = 1185) Negative Performed at [place] [address]Toll Free: [phone] No. [id number] [facility] CenterCOM. METABOLIC PANEL (20427)2022-08-11 15:22:15* Test Item Value Reference Range Interpretation Comme nts NA (test code = 0190176364) 138 mmol/L 135-145 K (test code = 9242041927) 3.8 mmol/L 3.5-5 CL (test code = 0017900194) 104 mmol/L 98-108 CO2 TOTAL (test code = 7828651685) 23 mmol/L 23-31 AGAP (test code = 1066993559) 2-16 BUN (test code = 1780692309) 11 mg/dL 7-23 GLUCOSE (test code = 3800766715) 109 mg/dL 70-110 CREATININE (test code = 0383502742) 0.62 mg/dL 0.5-1.04 TOTAL BILI (test code = 8015963127) 1.0 mg/dL 0.1-1.1 CALCIUM (test code = 8681870987) 9.6 mg/dL 8.6-10.6 T PROTEIN (test code = 8051604030) 6.7 g/dL 6.3-8.2 ALBUMIN (test code = 8458696555) 4.4 g/dL 3.5-5 ALK PHOS (test code = 8487010455) 37 U/L 34-122 ALTv (test code = 1742-6) 80 U/L 5-35 H AST(SGOT) (test code = 4785787096) 98 U/L 13-40 H eGFR (test code = 4457268455) mL/min/1.73m2 TRUNG (test code = TRUNG) Association [...] imaging tests). Lab Interpretation (test code = 71866-7) Abnormal [facility] CenterMAGNESIUM2022-09-22 15:22:15* Test Item Value Reference Range Interpretation Comme nts MAGNESIUM (test code = 8664741206) 2.0 mg/dL 1.7-2.4 Lab Interpretation (test cod e = 88869-6) Normal [facility] CenterCOMP. METABOLIC PANEL (89168)2022-08-11 15:22:15* Test Item Value Reference Range Interpretation Comme nts NA (test code = 0334444363) 138 mmol/L 135-145 K (test code = 4524995463) 3.8 mmol/L 3.5-5 CL (test code = 0097472452) 104 mmol/L 98-108 CO2 TOTAL (test code = 8516467910) 23 mmol/L 23-31 AGAP (test code = 0344871788) 2-16 BUN (test code = 4884556440) 11 mg/dL 7-23 GLUCOSE (test code = 0061489629) 109 mg/dL 70-110 CREATININE (test code = 7081315515) 0.62 mg/dL 0.5-1.04 TOTAL BILI (test code = 5414091236) 1.0 mg/dL 0.1-1.1 CALCIUM (test code = 8783658984) 9.6 mg/dL 8.6-10.6 T PROTEIN (test code = 6301580553) 6.7 g/dL 6.3-8.2 ALBUMIN (test code = 3632138691) 4.4 g/dL 3.5-5 ALK PHOS (test code = 8922499414) 37 U/L 34-122 ALTv (test code = 1742-6) 80 U/L 5-35 H AST(SGOT) (test code = 0247250533) 98 U/L 13-40 H eGFR (test code = 3536757096) mL/min/1.73m2 TRUNG (test code = TRUNG) Association [...] imaging tests). Lab Interpretation (test code = 78553-0) Abnormal [facility] CenterMAGNESIUM2022-09-22 15:22:15* Test Item Value Reference Range Interpretation Comme nts MAGNESIUM (test code = 3686649177) 2.0 mg/dL 1.7-2.4 Lab Interpretation (test cod e = 68403-0) Normal [facility] CenterLIPASE2022-09-22 15:21:55* Test Item Value Reference Range Interpretation Comme nts LIPASE (test code = 0616038945) 51 U/L 0-220 Lab Interpretation (test cod e = 47270-5) Normal [facility] CenterLIPASE2022-09-22 15:21:55* Test Item Value Reference Range Interpretation Comme nts LIPASE (test code = 9977179161) 51 U/L 0-220 Lab Interpretation (test cod e = 34135-7) Normal [facility] WITH [id number] 15:04:09* Test Item Value Reference Range Interpretation [...] 35.1 g/dL 31.6-35.1 RDW-SD (test code = 16168-3) 42.2 fL 39-49.9 RDW-CV (test code = 788-0) 13.5 % 12-15.5 PLT (test code = 777-3) See_Comment H [Automated messa ge] The system which generated this result transmitted reference range: 166 - 358 10*3/?L. The reference range was not used to interpret this result as normal/abnormal. MPV (test code = 38154-4) 10.1 fL 9.5-12.9 NRBC/100 WBC (test code = 1366840548) See_Comment [Automated Drybar ssage] The system which generated this result transmitted reference range: 0.0 - 10.0 /100 WBCs. The reference range was not used to interpret this result as normal/abnormal. NRBC x10^3 (test code = 9094898570) See_Comment [Automated messa ge] The system which generated this result transmitted reference range: 10*3/?L. The reference range was not used to interpret this result as normal/abnormal. GRAN MAT (NEUT) % (test code = 770-8) 77.4 % IMM GRAN % (test code = 3874973400) 0.40 % LYMPH % (test code = 736-9) 14.9 % MONO % (test code = 5905-5) 6.8 % EOS % (test code = 713-8) 0.3 % BASO % (test code = 706-2) 0.2 % GRAN MAT x10^3(ANC) (test code = 2723328516) 8.79 10*3/uL 1.88-7.09 H IMM GRAN x10^3 (test code = 0105825754) 0.04 10*3/uL 0-0.06 LYMPH x10^3 (test code = 731-0) 1.69 10*3/uL 1.32-3.29 MONO x10^3 (test code = 742-7) 0.77 10*3/uL 0.33-0.92 EOS x10^3 (test code = 711-2) 0.03 10*3/uL 0.03-0.39 BASO x10^3 (test code = 704-7) 0.01-0.07 Lab Interpretation (test code = 47201-6) Abnormal [facility] WITH [id number] 15:04:09* Test Item Value Reference Range Interpretation [...] 35.1 g/dL 31.6-35.1 RDW-SD (test code = 10127-8) 42.2 fL 39-49.9 RDW-CV (test code = 788-0) 13.5 % 12-15.5 PLT (test code = 777-3) See_Comment H [Automated messa ge] The system which generated this result transmitted reference range: 166 - 358 10*3/?L. The reference range was not used to interpret this result as normal/abnormal. MPV (test code = 31971-8) 10.1 fL 9.5-12.9 NRBC/100 WBC (test code = 7761882483) See_Comment [Automated me ssage] The system which generated this result transmitted reference range: 0.0 - 10.0 /100 WBCs. The reference range was not used to interpret this result as normal/abnormal. NRBC x10^3 (test code = 6230746052) See_Comment [Automated messa ge] The system which generated this result transmitted reference range: 10*3/?L. The reference range was not used to interpret this result as normal/abnormal. GRAN MAT (NEUT) % (test code = 770-8) 77.4 % IMM GRAN % (test code = 6787551329) 0.40 % LYMPH % (test code = 736-9) 14.9 % MONO % (test code = 5905-5) 6.8 % EOS % (test code = 713-8) 0.3 % BASO % (test code = 706-2) 0.2 % GRAN MAT x10^3(ANC) (test code = 1151959510) 8.79 10*3/uL 1.88-7.09 H IMM GRAN x10^3 (test code = 0840173549) 0.04 10*3/uL 0-0.06 LYMPH x10^3 (test code = 731-0) 1.69 10*3/uL 1.32-3.29 MONO x10^3 (test code = 742-7) 0.77 10*3/uL 0.33-0.92 EOS x10^3 (test code = 711-2) 0.03 10*3/uL 0.03-0.39 BASO x10^3 (test code = 704-7) 0.01-0.07 Lab Interpretation (test code = 58996-7) Abnormal [facility]- DUP AB/PEL/SC [id number] 09:21:[address] [facility] : 1995 Sex: F Name: AISLINN BURK [facility] : 1995 Age/S: 26 / F [address] [address] Unit #: [id number] Loc: [place] [address] Phys: Lorenzo Mcmahan DO Acct: [id number] Dis Date: Status: REG ER PHONE #:[phone] Exam Date: 08/10/2022907 FAX #: Reason: PREG, BLEEDING EXAMS: CPT: [id number] DUP AB/PEL/SC COMP 45954 History: pain/bleeding Comparison: None at this time [...] [place] : 1995 Age/S: 26 / F [address] [address] Unit #: [id number] Loc: [place] [address] Phys: Lorenzo Mcmahan DO Acct: [id number] Dis Date: Status: REG ER PHONE #: [phone] Exam Date: 08/10/2022 0908 FAX #: Reason: PREG, BLEEDING EXAMS: CPT: [id number] DUP AB/PEL/SC COMP 48545 (Continued) CC: Leroy Cool MD; Lorenzo Mcmahan DO Technologist: Hallie Garcia Trnmeb Date/Time: 08/10/2022 (920) IfrahPMT PAGE 2Signed Report Name: AISLINN BURK [employer] : 1995 Age/S: 26 / F [address] [address] Unit #: [id number] Loc: [place] [address] Phys: Lorenzo Mcmahan DO Acct: [id number] Dis Date: Status: REG ER PHONE #: [phone] Exam Date: 08/10/2022 0908 FAX #: Reason: PREG, BLEEDING EXAMS: CPT:[id number] DUP AB/PEL/SC COMP 71262 (Continued) Orig Print D/T: S: 08/10/2022 (924) Probe: PAGE 3 Signed Report- US PREG 1ST [id number] 09:21:[address] : 1995 Sex: F Name: AISLINN BURK : 1995 Age/S: 26 / F [address] [address] Unit #: [id number] Loc: [place] [address] Phys: Lorenzo Mcmahan DO Acct: [id number] Dis Date: Status: REG ER PHONE #: [phone] Exam Date: 08/10/2022906 FAX #: Reason: pain/bleeding EXAMS: CPT: [id number] US PREG 1ST TRIMTR 40535 History: pain/bleeding Comparison: None at this time Location: [facility] Transabdominaland endovaginal sonography of the pelvis [...] BURK : 1995 Age/S: 26 / F [address] [address] Unit #: [id number] Loc: [place] [address] Phys: Lorenzo Mcmahan DO Acct: [id number] Dis Date: Status: REG ER PHONE #: [phone] Exam Date: 08/10/2022906 FAX #: Re ason: pain/bleeding EXAMS: CPT: [id number] US PREG 1ST TRIMTR 24207 (Continued) CC: Lorenzo Mcmahan DO Technologist: Hallie Garcia Trnscb Date/Time: 08/10/2022 (920) IfrahPMT PAGE 2 Signed Report Name: AISLINN BURK [employer] : 1995 Age/S: 26 / F [address] [address] Unit #: [id number] Loc: [place] [address] Phys: Lorenzo Mcmahan DO Acct: [id number] Dis Date: Status: REG ER PHONE #: [phone] Exam Date: 08/10/2022 09 FAX #: Reason: pain/bleeding EXAMS: CPT: [id number] US PREG 1ST TRIMTR 92942 (Continued) Orig Print D/T: S: 08/10/2022 (924) Probe: PAGE 3 Signed Report- US TRANSVAGINAL NON [id number] 09:21:[address] [address] : 1995 Sex: F Name: AISLINN BURK [employer] : 1995 Age/S: 26 / F [address] [address] Unit #: [id number] Loc: [place] [address] Phys: Lorenzo Mcmahan DO Acct: [id number] Dis Date: Status: REG ER PHONE #:[phone] Exam Date: 08/10/2022 0908 FAX #: Reason: pain/bleeding EXAMS: CPT: [id number] [place] [address] History: pain/bleeding Comparison: None at this time [...] 1 Signed Report (CONTINUED) Name: AISLINN BURK [employer] : 1995 Age/S: 26 / F [address] [address] Unit #: [id number] Loc: [place] [address] Phys: Lorenzo Mcmahan DO Acct: [id number] Dis Date: Status: REG ER PHONE #: [phone] Exam Date: 08/10/2022 09 FAX #: R christian: pain/bleeding EXAMS: CPT: [id number] [place] [address] (Continued) CC: Lorenzo Mcmahan DO Technologist: Hallie Garcia [facility] Date/Time: 08/10/2022 (09) Veronica PAGE 2 Signed Report Name: AISLINN BURK [employer] : 1995 Age/S: 26 / F [address] [address] Unit #: [id number] Loc: [place] [address] Phys: Lorenzo Mcmahan DO Acct: [id number] Dis Date: Status: REG ER PHONE #: [phone] Exam Date: 08/10/2022 0908 FAX #: Reason: pain/bleeding EXAMS: CPT: [id number] [place] [address] (Continued) Orig Print D/T: S: 08/10/2022 (0925) Probe: [id number] PAGE 3 Signed ReportHCG [id number] 08:39:00* Test Item Value Reference Range Interpretation Comme nts HCG SERUM (test code = HCG) 81109 mi-IU/ML 0-6 H 0 - 6 NOT PREGNA NT > 6 SUGGESTIVE OF EARLY RISES TWO FOLD EVERY 2 DAYS; SUGGEST RECONFIRMING AFTER 2 DAYS. 150,000-200,[address] TRIMESTER 10,000 - 50,000 2ND & 3RD TRIMESTER UA RFLX MICR CULT IF [id number] 08:26:00* Test Item Value Reference Range Interpretation [...] Indication for culture: RiskForSepsis-no oth srcBASIC METABOLIC [id number] 08:10:00* Test Item Value Reference Range Interpretation [...] CA) 10.0 MG/DL 8.5-10.1 N HEPATIC FUNCTION [id number] 08:10:00* Test Item Value Reference Range Interpretation [...] code = ALKP) 34 Unit/L 45-117 L [id number] 08:10:00* Test Item Value Reference Range Interpretation Comme nts LIPASE (test code = LIP) 29 Unit/L 114-286 L CBC W/AUTO [id number] 07:59:00* Test Item Value Reference Range Interpretation [...] ode = MDIFF) NO DIFF/SCN CRITERIA POCT [id number] 16:30:00* Test Item Value Reference Range Interpretation Comme nts POCT PREG (test code = 1605) Positive On board controls acceptable with C Line (test code = 3574) Yes POCT PREG LOT # (test code = 3575) POCT PREG TEST DATE ( test code = 3576) [facility] CenterCULTURE, [id number] 09:51:52SPECIMEN NUMBER: [id number] CULTURE, URINE SPECIMEN NUMBER: [id number] SPECIMEN COMMENT: URINE SOURCE: URINE REPORT STATUS: FINAL FINAL REPORT: 07/30/2022 10-50,000 CFU/ML UROGENITAL YANNI PRESENT NO COMMON PATHOGENSCULTURE, URINE [ADDED] 2022-07-30 00:00:00* Test Item Value Reference Range Interpretation Comme nts CULTURE, URINE (test code = 61606) SPECIMEN NUMBER: [id number] Wai Carrion [facility] W/AUTO DIFF WITH [id number] 08:02:01* Test Item Value Reference Range Interpretation [...] 0.00-0.10 ABS NUCLEATED RBCS (test code = 10360) 0.00 K/UL 0.00-0.11 HCG, [id number] 06:09:47* Test Item Value Reference Range Interpretation Comme nts HCG, QUANTITATIVE (test code = 2506) [address]81 MIU/ML SEE BELOW EXPEC ARTURO VALUES FOR [...] . . . . . . MIU/ML 3-4CZTG-CZDXTJXZHP FEMALES . . . . . . . . . . . . MIU/ML <=7 UNLESS OTHERWISE INDICATED, ALL TESTING PERFORMED [facility] [address] [facility] [address] SUPERVISOR VENDOR QUALITY: SHIRA SUE M.D. CLIA NUMBER [id number] [facility] [place]. [id number] CBC W/AUTO DIFF WITH PLATELETS [ADDED]2022-07-29 00:00:00* Test Item Value Reference Range Interpretation Comme nts WBC (test code = 1001) 7.5 K/UL RBC (test code = 1002) 4.04 M/UL HEMOGLOBIN (test code = 1003) 12.1 G/DL HEMATOCRIT (test code = 1004) 36.7 % MCV (test code = 1005) 90.8 fL MCH (test code = 1006) 30.0 PG MCHC (test code = 1007) 33.0 G/DL RDW (test code = 1038) 13.7 % NEUTROPHILS (test code = 1008) 63.5 % LYMPHOCYTES (test code = 1010) 26.2 % MONOCYTES (test code = 1011) 7.8 % EOSINOPHILS (test code = 1012) 2.0 % BASOPHILS (test code = 1013) 0.1 % IMMATURE GRANULOCYTES (test code = 1036) 0.4 % NUCLEATED RBCS (test code = 1065) 0.0 /100WBC'S PLATELET COUNT (test code = 1015) 251 K/UL ABSOLUTE NEUTROPHILS (test c ode = 1066) 4.78 K/UL ABSOLUTE LYMPHOCYTES (test c ode = 1067) 1.97 K/UL ABSOLUTE MONOCYTES (test cod e = 1068) 0.59 K/UL ABSOLUTE EOSINOPHILS (test c ode = 1040) 0.15 K/UL ABSOLUTE BASOPHILS (test cod e = 1069) 0.01 K/UL ABS IMMATURE GRANULOCYTES (t est code = 1020) 0.03 K/UL ABS NUCLEATED RBCS (test cod e = 74734) 0.00 K/UL Wai DelgadoHCG, QUANTITATIVE [ADDED]2022-07-29 00:00:00* Test Item Value Reference Range Interpretation Comme nts HCG, QUANTITATIVE (test code = 2506) [address]35 MIU/ML Wai DelgadoPOCT URINALYSIS W/O SPECIFIC [id number] 21:04:00* Test Item Value Reference Range Interpretation [...] = 3257) N/A Negative - Negati ve [facility] CenterURINALYSIS2021-03-12 16:50:35* Test Item Value Reference Range Interpretation Comme nts APPEARANCE (test code = 3276803272) Hazy Clear A COLOR (test code = 9423235556) Yellow Yellow PH (test code = 5035455065) 4.8-8.0 SP GRAVITY (test code = 0363218973) 1.003-1.030 GLU U QUAL (test code = 1779113059) Normal Normal BLOOD (test code = 1271099684) Negative Negative KETONES (test code = 1684290530) 20 mg/dL Negative A PROTEIN (test code = 2887-8) Negative Negative UROBILIN (test code = 4273522204) 2.0 mg/dL Normal A BILIRUBIN (test code = 4089151127) Negative Negative NITRITE (test code = 7969132916) Negative Negative LEUK KASHMIR (test code = 9735289046) 25/uL Negative A RBC/HPF (test code = 7616968487) See_Comment [Automated tzonebd.coma ge] The system which generated this result transmitted reference range: 0 - 3 HPF. The reference range was not used to interpret this result as normal/abnormal. WBC/HPF (test code = 1239242373) See_Comment H [Automated tzonebd.coma ge] The system which generated this result transmitted reference range: 0 - 5 HPF. The reference range was not used to interpret this result as normal/abnormal. BACTERIA (test code = 5942946333) Moderate Negative A MUCOUS (test code = 9875847413) Marked Negative LPF A SQ EPITH (test code = 0330822524) HPF Lab Interpretation (test code = 71370-4) Abnormal [facility] CenterPOCT [id number] 16:14:00* Test Item Value Reference Range Interpretation Comme nts POCT PREG (test code = 1605) negative On board controls acceptable with C Line (test code = 3574) present POCT PREG LOT # (test code = 3575) [id number] POCT PREG TEST DATE ( test code = 3576) 2022-09-19 Lab Interpretation (test cod e = 04444-7) Normal [facility]. METABOLIC PANEL (31108)2021-01-29 15:11:52* Test Item Value Reference Range Interpretation Comme nts NA (test code = 3611647216) 143 mmol/L 135-145 K (test code = 7765220776) 3.2 mmol/L 3.5-5.0 L CL (test code = 1059295512) 102 mmol/L 98-108 CO2 TOTAL (test code = 8222400275) 30 mmol/L 23-31 AGAP (test code = 0680895604) 2-16 BUN (test code = 3762049641) 15 mg/dL 7-23 GLUCOSE (test code = 6164442501) 106 mg/dL 70-110 CREATININE (test code = 0761698305) 0.81 mg/dL 0.50-1.04 TOTAL BILI (test code = 4810134023) 0.9 mg/dL 0.1-1.1 CALCIUM (test code = 5695282228) 9.6 mg/dL 8.6-10.6 T PROTEIN (test code = 8952919496) 7.4 g/dL 6.3-8.2 ALBUMIN (test code = 5543629058) 4.7 g/dL 3.5-5.0 ALK PHOS (test code = 4507781837) 37 U/L 34-122 ALTv (test code = 1742-6) 39 U/L 5-35 H AST(SGOT) (test code = 1217816125) 75 U/L 13-40 H eGFR Calculation (Non-) (test code = 1120918123) mL/min/1.73m2 eGFR Calculation () (test code = 9699458826) mL/min/1.73m2 TRUNG (test code = TRUNG) Association [...] imaging tests). Lab Interpretation (test code = 16467-8) Abnormal [facility] WITH [id number] 14:36:28* Test Item Value Reference Range Interpretation Comme nts WBC (test code = 6690-2) See_Comment [[employer]] The system which generated this result transmitted reference range: 4.30 - 11.10 10*3/?L. The reference range was not used to interpret this result as normal/abnormal. RBC (test code = 789-8) See_Comment [Automated [employer]] The system which generated this result transmitted [...] 34.8 g/dL 31.6-35.1 RDW-SD (test code = 62423-4) 39.2 fL 39.0-49.9 RDW-CV (test code = 788-0) 12.9 % 12.0-15.5 PLT (test code = 777-3) See_Comment [Automated messa ge] The system which generated this result transmitted reference range: 166 - 358 10*3/?L. The reference range was not used to interpret this result as normal/abnormal. MPV (test code = 66608-9) 10.5 fL 9.5-12.9 NRBC/100 WBC (test code = 3612102233) See_Comment [Automated me ssage] The system which generated this result transmitted reference range: 0.0 - 10.0 /100 WBCs. The reference range was not used to interpret this result as normal/abnormal. NRBC x10^3 (test code = 8670509547) <0.01 See_Comment [Automated me ssage] The system which generated this result transmitted reference range: 10*3/?L. The reference range was not used to interpret this result as normal/abnormal. GRAN MAT (NEUT) % (test code = 770-8) 71.8 % IMM GRAN % (test code = 8601725223) 0.40 % LYMPH % (test code = 736-9) 18.5 % MONO % (test code = 5905-5) 7.8 % EOS % (test code = 713-8) 1.2 % BASO % (test code = 706-2) 0.3 % GRAN MAT x10^3(ANC) (test code = 5685891842) 6.81 10*3/uL 1.88-7.09 IMM GRAN x10^3 (test code = 3197893605) 0.04 10*3/uL 0.00-0.06 LYMPH x10^3 (test code = 731-0) 1.76 10*3/uL 1.32-3.29 MONO x10^3 (test code = 742-7) 0.74 10*3/uL 0.33-0.92 EOS x10^3 (test code = 711-2) 0.11 10*3/uL 0.03-0.39 BASO x10^3 (test code = 704-7) 0.03 10*3/uL 0.01-0.07 [facility] by RT-PCR (HIGH RISK) 2021-01-26 00:00:00* Test Item Value Reference Range Interpretation Comme nts SARS-CoV-2 INTERPRETATION (test code = 05792) NEGATIVE SOURCE (test code = 11349) NASOPHARYNGEAL SARS-CoV-2 (COVID-19) by RT-PCR (HIGH RISK)2021-01-26 00:00:00* Test Item Value Reference Range Interpretation Comme nts SARS-CoV-2 INTERPRETATION (test code = 46210) NEGATIVE SOURCE (test code = 68859) NASOPHARYNGEAL SARS-CoV-2 (COVID-19) by RT-PCR (HIGH RISK)2021-01-26 00:00:00* Test Item Value Reference Range Interpretation Comme nts SARS-CoV-2 INTERPRETATION (test code = 66872) NEGATIVE SOURCE (test code = 74138) NASOPHARYNGEAL Wai Delgado Notes Date/Time Note Provider Source 2024-05-12 00:00:00 [id number] 0:00:00+ + +| Plan Activity | Plan Date |+ =======+ +| COVID-19 test-pending results | 2020-12-27 || Vit C, Zinc, Mg daily | || Hydration 1.5-2L daily water/gatorade/pedialyte/electrolyte water | || Quarantine until results, if positive x 14 or 10 days post last symptom | || RTO if s/s worsen/increase | || ER precautions for SOB, CP, worsening of symptoms | |+ -------+ +| Rest | 2020-12-27 || Tylenol as needed for pain | || MVI daily | |+ -------+ +| COVID-19 TESTING | 2021-01-25 || await results | || continue social distancing | || cover face with mask, handkerchief, etc when out in public | || will be notified of results in 3-5 days. continue to quarantine, good | || handwashing, wear face mask | || monitor for s/sx of COVID-19 | || ER precautions for shortness of breath, difficulty breathing, abdominal pain, | || N/V/D | || recommend daily vitamins- vitamin C, vitamin D3, zinc | |+ -------+ +| Rapid flu test | 2021-01-25 || Take Tylenol every 6 hours | || Stay hydrated | || Drink tea with honey or henrry | || Avoid processed foods | || Continue to take daily vitamins | || ER precaution for respiratory distress | |+ -------+ +| CBC, HCG today, results pending | 2022-07-28 || ER precaution for heavy bleeding | |+ -------+ +| judie Albright | 2022-07-28 || Ibuprofen and tylenol as needed | || ER precautions for severe pain | |+ -------+ +| Crisis BH appt made today with assistance of crisis coordinator | 2022-07-28 || ER precautions for suicidal thoughts | |+ -------+ +| BMI normal. Continue healthy diet and daily exercise. | 2023-04-20 |+ -------+ +| RTC on annual exam | 2023-04-20 || RTO for HPV vaccine series | || Annual well adult with PCP as indicated | || STI labs as indicated | || Await diagnostic results | |+ -------+ +| Lab Tests: Wet [facility] | 2023-04-20 || Discussed medication usage and side effects | || Start Flagyl 500mg PO BID x 7 days | || Medication sent to the pharmacy | || Avoid intercourse until completion of treatment | || Good hygiene | || Avoid douching | || Avoid scented feminine pads | || Avoid perfume soaps | || Wear cotton undergarments | || Return to clinic in 2 weeks if not resolved | || Patient verbalized understanding of treatment plan | |+ -------+ +| UPT negative | 2023-04-20 || Fatuma rx sent. | || Medication indications and SE discussed. | || Pt will start OCP this Monday | || Barrier contraceptive recommended for 7 days after starting OCP | |+ -------+ +| PAP with HPV | 2023-04-20 || results pending | |+ -------+ +| GC/Chlamydia, RPR, Hepatitis | 2023-04-20 || results pending | |+ -------+ +| HIV | 2023-04-20 || results pending | |+ -------+ +| HCG, results pending | 2023-04-24 || Order TVUS | || Reassurance provided that bleeding was likely irregular menses and very | || unlikely that she had retained products of conception since July. UPT was | || negative last week in clinic. | || ER precautions given | |+ -------+ +| tested positive for covid a week ago 05/05/24 | 2024-05-12 || pt's reassurance | || continue breathing breathing | || rx medrol dose jaison | || rx bromfed | || f/u if no improvement | |+ -------+ +18364-8Znzz of TreatmentLNCARE PLANTXTSFA|[id number]|[id number] 83.10.20.22.2.10AVAvailable for patient ekqjNakiizeEgghfxdkeDXKHn24 Section NarrativeNARRATIVEFormatted C-CDA narrative textSFAStnoé SheylaKrzysztof [facility]2024-06-23T00:00:00 Wai SheylaKrzysztof [facility] 2024-03-16 00:04:34 6530-85-01G73:04:34 Pt dc'd home ambulatory. Pt v/u of dc instructions, follow up, and prescription use. 37326-7Cgntcflma department TupuWP2925-78-10K83:04:55[facility] NoteTXT1.2.840.787548.1.13.104.2.7.2.7 38876|[id number] for patient tvro05140-7XgohVYZNIIEZJWGDnritptxp C-CDA narrative [id number] D Roman RNUT[address]YlknLxreaqmfiUdsapnxukXFHX6827168874CH LLMRNTSLAXWIIVSPAXTL9862-71-59Z75:04:5 51.2.840.008381.1.72.3.15|1.2.840.1143 [id number] Tami Herrera RN [facility] 2024-03-15 22:22:22 8021-97-44Z23:22:22 Pt arrives ambulatory to ED reporting that she has had a cough for about a week that she has been able to control with her albuterol inhaler and neb treatments. She says she was out tonight and began coughing and was unable to get control over it with her meds. She says her chest is hurting d/t the coughing. Lungs clear in triage, last used inhaler on the way to ED and last neb treatment today around 1530. Pt does have a hx of asthma. 06386-1Khwxphfbb department Triage rsjzXM4846-00-86R71:26:42[facility] Triage noteTXT1.2.840.332805.1.13.104.2.7.2.7 10883|[id number] for patient fdtj10992-1Kbzjdqsmj department NoteLNNARRATIVEFormatted C-CDA narrative [id number] L Aston RN[address] Yj[id number] AZNVEMJBIRQNDECEYTIS2713-35-05M87:26:4 21.2.840.762169.1.72.3.15|1.2.840.1143 [id number] Myrtle Longoria Aston RN [facility] 2024-03-15 22:18:00 9345-13-45K68:18:00 [facility] Emergency Department NotePatient Name: Aislinn BurkDate of : 1995 28 year old femaleTreatment Room: [place] [address]Medical Record Number: [id number] Care Physician: Leroy CoolPatient Escorted by: Self [9]Mode of Arrival: Personal means [1]EMS Treatment Prior to ED 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: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 treatment: Other (comment)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 No fevers. No congestion or sore throat. No sick contacts. She does vape. She been using albuterol at home and reports minimal help. She does have a history of asthma. No history of diabetes or high blood pressure.Here for evaluation.Past Medical History/Immunizations:Past Medical History:Diagnosis DateAnxiety 2Chlamydia trachomatis infection of lower genitourinary sites 04/15/2014Cholelithiasis 07/10/2016Episodic mood disorder 03/19/2020Iron deficiency anemia 12/21/2021Menstrual disorderMissed 08/11/2022MTHFR mutation 07/30/2019STD (sexually transmitted disease)Treated 04/24/2014Tetanus received in last 5 years: YesAllergies:No Known AllergiesPast Social History:Tobacco UseFormerSmokeless Tobacco: Never used smokeless tobacco.Vaping UseFormer; Counseling given; Substances: Nicotine, Flavoring; Devices: Disposable, Pre-filled or refillable cartridge, Refillable tankAlcohol UseNo.Drug UseYes; Marijuana.Sexual ActivitySexually active; Partners: Male.Past Surgical History:Past Surgical History:Procedure Laterality DateCESAREAN SECTION 11/2019CHOLECYSTECTOMY 2016DILATION AND CURETTAGE (SHX) N/A 08/11/2022urgeon: Lisset Calhoun MD; [facility]Review of Systems:Review of SystemsConstitutional: Negative for chills and fever.Respiratory: Positive for cough. Negative for shortness of breath.Cardiovascular: Negative for chest pain.Gastrointestinal: Negative for abdominal pain and vomiting.Genitourinary: Negative for dysuria.Musculoskeletal: Negative for arthralgias, neck pain and neck stiffness.Skin: Negative for wound.Neurological: Negative for dizziness.Psychiatric/Behavioral: Negative for agitation.Endocrine: Negative for goiter.Physical Exam:ED Triage Vitals [03/15/242225]Weight 54.4 kg (120 lb)Actual or estimated Estimated by patient/family reportHeight 1.549 m (5' 1")BP 131/89Pulse 120Resp 24Temp 37.1 ?C (98.8 ?F)Temp source OralSpO2 99 %Measured on Room airPhysical ExamVitals and nursing note reviewed.Constitutional:Appearance: Normal appearance. She is normal weight.HENT:Head: Normocephalic and atraumatic.Right Ear: Tympanic membrane normal.Left Ear: Tympanic membrane and ear canal normal.Mouth/Throat:Mouth: Mucous membranes are moist.Pharynx: Oropharynx is clear. No oropharyngeal exudate or posterior oropharyngeal erythema.Cardiovascular:Rate and Rhythm: Regular rhythm. Tachycardia present.Pulmonary:Effort: Pulmonary effort is normal. No respiratory distress.Breath sounds: No stridor. Wheezing present. No rhonchi.Comments: Lungs are clear bilaterally but there are scattered wheezes to the bilateral bases.No use of accessory muscles.She is able to speak in full and complete sentences without difficulty.Abdominal:General: There is no distension.Musculoskeletal:General: Normal range of motion.Cervical back: Normal range of motion and neck supple.Skin:General: Skin is warm and dry.Neurological:General: No focal deficit present.Mental Status: She is alert.Radiology:No orders to displayLab Results:Lab Results - No data to displayEKG:If EKG completed, see Procedure Note.Orders and Treatments:No orders of the defined types were placed in this encounter.Orders Placed This EncounterMedicationspredniSONE (DELTASONE) tablet 50 mgalbuterol (PROVENTIL) 2.5 mg /3 mL (0.083 %) nebulizer solution 5 mgalbuterol 2.5 mg /3 mL (0.083 %) nebulizer solutionpredniSONE 50 mg tabletFirst Provider Eval:ED EventsDate/Time Event User Vugqdfhh26/26/242229 Medical Screening Begins JUANY BURK DO --03/15/242229 First Provider Evaluation JUANY BURK DO --ED COURSEDiagnosis/Impression as of 03/15/24 2351Acute coughProcedures:ProceduresMDM:Medical Decision MakingThe patient presents from home for evaluation for productive cough for the past 1 week. No fever. No congestion or sore throat. No sick contacts. She does have a history of asthma and has been using albuterol at home with minimal help.Vital signs are stable in the ER.Her lungs are clear with occasional expiratory wheezing at the bilateral bases.No concern for pneumonia based on her presentation.Offered her screening for COVID, influenza as well as RSV and she does decline.Will give an albuterol treatment as well as oral prednisone here in the ER.Anticipate discharge home later.2350 -the patient is doing well here in the ER.Her lungs are clear on examination after the breathing treatment given here in the ER.She remained stable here in the ER and is okay for discharge home with PCP follow-up.Problems Addressed:Acute cough: acute illness or injuryRiskPrescription drug management.Flowsheet Documentation:Scoring Tools:No data recordedDisposition/Condition:ED DispositionED DispositionDisch - HomeConditionStableComment--Discharge Medications:Patient's MedicationsSTART taking these medicationsALBUTEROL 2.5 MG /3 ML (0.083 %) NEBULIZER SOLUTION Inhale 3 mL every 4 (four) hours. May also nebulize one extra every 6 hours.PREDNISONE 50 MG TABLET Take 1 tablet by mouth in the morning for 4 days.CONTINUE taking these medications which have NOT CHANGEDALPRAZOLAM 0.5 MG TABLET Take 0.5 mg by mouth in the morning and 0.5 mg at noon and 0.5 mg in the evening.BUPROPION XL 150 MG 24 HR TABLETDESVENLAFAXINE SUCCINATE 25 MG YS90EYUAEKLOBHZSPO SUCCINATE 50 MG 24 HR TABLETDEXTROAMPHETAMINE-AMPHETAMINE 20 MG TABLETDIAZEPAM 10 MG TABLETIBUPROFEN 800 MG TABLET Take 1 tablet by mouth every 6 (six) hours as needed for Alternate with [place] for pain scale 4-6.LORAZEPAM 0.5 MG TABLET TAKE 1 TABLET BY MOUTH EVERY 8 HOURS NEEDED FOR ANXIETYMETHYLERGONOVINE 0.2 MG TABLET Take 1 tablet by mouth every 6 (six) hours.ONDANSETRON 8 MG DISINTEGRATING TABLET Take 1 tablet by mouth every 8 (eight) hours as needed for Nausea and Vomiting (N/V). VIT CALC,IRON,FOLIC ( VITAMIN ORAL) Take by mouth.PROPRANOLOL 20 MG TABLETZOLPIDEM 10 MG TABLET TAKE 1/2 TO 1 TABLET BY MOUTH DAILY AT BEDTIMESTART taking Modified Medications as PrescribedNo medications on fileSTOP taking these medicationsNo medications on fileFollow-up:Electronically signed by:Juany Burk DO03/15/24 2351 87536-0Sbgjadscx Emergency department RgqyHY0310-72-84R37:51:04Physician Emergency department NoteTXT1.2.840.778812.1.13.104.2.7.2.7 [id number] for patient flam95526-5Vjfvvcgvc department NoteLNNARRATIVEFormatted C-CDA narrative textUTMBALBUQUERQUE INDIAN HEALTH CENTER - [address] [id number] PNOVBBEKXWGSUQSGMCPX3317-16-54N78:51:0 41.2.840.565894.1.72.3.15|1.2.840.1143 [id number] [facility] 2022-08-10 07:26:00 [id number]/uVMq6UnIfvsmO3ZUu2d+XQ LckcbcJW9mJt+dFj8OVyKyF0e9Bat9vnQGjtLq 4856-55-15C22:26:00 [facility] PROVID[facility] REPORTREPORT#:[id number] REPORT STATUS: SignedDATE:08/10/22 TIME:725 PATIENT: AISLINN BURK UNIT #: [id number]#: [id number] ROOM/BED:: 97 AGE: 26 SEX: F PCP [...] Nothing Free Text HPI NotesFree Text HPI UyqagV0W9 -states she is currently with twins and one of them is nonviable. States she was told that half of her uterus was filled with hemorrhage. Has hadabdominal pain, vaginal bleeding, nausea and vomiting for the past 2 weeks. States her [employer] [facility]. Risk-Abd Pain F Under 40)( Ectopic [...] Color NL, Warm, Dry, Turgor NLGenitourinary General Neurology Hospitalist present Female Genitourinary Atraumatic, External genitalia NL, [...] NL Interpretation Diagnostics Lab Results InterpretationResultsLaboratory Tests 08/10/2231:[Embedded Image Not Available]Laboratory Tests: 08/10 731 Chemistry [...] (Auto) (20.5 - 51.1 %) 3.9 L [place] % (Auto) (1.7 - 9.3 %) 1.0 L Eos % (Auto) (0.0 - 6.0 %) 0.0 Baso % (Auto) (0.0 - 2.0 %) 0.1 Neut # (Auto) (1.8 - 7.6 K/mm3) 15.5 H Lymph # (Auto) (0.6 - 3.2 K/mm3) 0.6 [place] # (Auto) (0.3 - 1.1 K/mm3) 0.2 [...] Maternal Serum HCG (0 - 6 mi-IU/ML) 02455 H Urines Urine Color (YEL/STRAW discript) STRAW Urine Appearance (CLEAR discript) TURBID H Urine pH (5.0 - 7.0 pH UNITS) 6.0 Ur Specific [place] (1.005 - 1.030 SG) >=1.030 H Urine [...] hemorrhage. Impression By: Veronica Talavera M.D. Re-Evaluation [facility] )( Re-Evaluation/Progress #1Text/Dict NotePatient states that her [...] large subchorionic hemorrhage. Patient has follow-up with [employer].Time of Re-Eval 1005)( Re-Eval Status Improved Re-Evaluation/Progress [...] Incomplete, Understanding Miscarriage: EmotionsAdditional InstructionsFollow-up with your [employer] physician in 1 to 2 days at 0917 RPT #: [id number] OF REPORTEDEmergency department nyfced4507-66-06W15:26:00L.[id number] 1-0029AVAvailable for patient odkpXFPKBKFJDQGABN7062-71-00T36:17:18 [facility]
--- NOTE | 2024-05-20 13:11 | EDPHYS ---
Physician Documentation [facility] Name: Cely Clancy Age: 28 yrs Sex: Female : 1995 Arrival Date: 05/20/2024 Time: 12:42 Bed 18 Private MD: ED Physician Mejia Rios HPI: 05/20 13:18 This 28 yrs old Female presents to ER via Ambulatory with complaints of Facial Swelling.sb4 13:18 Patient states that she has had a known cracked right upper molar. She states that she sb4 bit into a sandwich on Monday immediately causing discomfort to that area. She states that since then, she has had increased pain and now the right side of her face is swollen. She has been taking ibuprofen for the pain. Denies any fevers/chills. Historical: - Allergies: 12:56 No Known Allergies; ll1 - PMHx: 12:56 Anxiety; depressive disorder; PCOS; Post depression; suicidal ideation (Post ll1 depress); - PSHx: 12:56 section; Cholecystectomy; ll1 - Immunization history:: Adult Immunizations up to date. - Infectious Disease History:: Denies. - Social history:: Smoking status: Reported history of juuling and/or vaping. ROS: 13:18 Constitutional: Negative for fever, chills, and weight loss, sb4 13:18 ENT: Positive for dental pain, facial swelling, 13:18 All other systems are negative, Exam: 13:18 Constitutional: This is a well developed, well nourished patient who is awake, alert, sb4 and in no acute distress. Eyes: Extra-ocular motions intact. Periorbital areas with no swelling, redness, or edema. Cardiovascular: Regular rate and rhythm with a normal S1 and S2. Respiratory: Lungs have equal breath sounds bilaterally, clear to auscultation and percussion. No rales, rhonchi or wheezes noted. No increased work of breathing, no retractions or nasal flaring. Abdomen/GI: Soft, non-tender, no distension. Skin: Warm, dry with normal turgor. Normal color with no rashes, no lesions, and no evidence of cellulitis. 13:18 Head/face: Noted is swelling, that is mild, of the right cheek, 13:18 ENT: Mouth: Dental exam: fractured teeth are noted, specifically the upper right second molar (#2), gum swelling, that is mild, Vital Signs: 13:01 BP 123 / 78; Pulse 77; Resp 16; Temp 97.8; Pulse Ox 100% ; Height 5 ft. 1 in. ; Pain ll1 8/10; 13:01 Pain Scale: Adult ll1 MDM: 12:52 Patient medically screened. sb4 13:18 Data reviewed: vital signs, nurses notes, and as a result, I will discharge patient. sb4 Counseling: I had a detailed discussion with the patient and/or guardian regarding the historical points, exam findings, and any diagnostic results supporting the discharge/admit diagnosis, the need for outpatient follow up, for definitive care, a dentist, to return to the emergency department if symptoms worsen or persist or if there are any questions or concerns that arise at home. Administered Medications: No medications were administered Disposition Summary: 05/20/24 13:09 Discharge Ordered Notes: Location: Home sb4 Problem: new sb4 Symptoms: are unchanged sb4 Condition: Stable sb4 Diagnosis - Cracked tooth sb4 - Dental caries, unspecified sb4 Followup: sb4 - With: German Henry DDS - When: As needed - Reason: Recheck today's complaints, Re-evaluation by your physician Discharge Instructions: - Discharge Summary Sheet sb4 - Dental Pain, Bsco-dt-Vjid sb4 Forms: - Antibiotic Education sb4 - Patient Portal Instructions sb4 - Leadership Thank You Letter sb4 Prescriptions: - Amoxicillin 875 mg Oral Tablet - take 1 tablet ORAL route every 12 hours for 10 days; 20 tablet; Refills: 0, sb4 Product Selection Permitted - Medrol (Jose) 4 mg Oral Tablets, Dose Pack - take 1 tablet ORAL route as directed - follow package instructions; 1 packet; sb4 Refills: 0, Product Selection Permitted Signatures: Froylan Restrepo RN RN ll1 Peyton Mendes PA-C PA-C sb4
--- NOTE | 2024-05-20 13:11 | ER ---
Nurse's Notes [facility] Name: Cely Clancy Age: 28 yrs Sex: Female : 1995 Arrival Date: 05/20/2024 Time: 12:42 Bed 18 Private MD: Diagnosis: Cracked tooth;Dental caries, unspecified Presentation: 05/20 13:01 Chief complaint: Patient states: R upper jaw tooth pain after biting a sandwich on ll1 Monday. Pain and swelling to R upper jaw since Monday. Coronavirus screen: Client denies travel out of the [place] in the last 14 days. At this time, the client does not indicate any symptoms associated with coronavirus-19. Ebola Screen: Patient denies travel to an Ebola-affected area in the 21 days before illness onset. Initial Sepsis Screen: Does the patient meet any 2 criteria? No. Patient's initial sepsis screen is negative. Does the patient have a suspected source of infection? No. Patient's initial sepsis screen is negative. Risk Assessment: Do you want to hurt yourself or someone else? Patient reports no desire to harm self or others. Onset of symptoms was May 18, 2024. 13:01 Method Of Arrival: Ambulatory ll1 13:01 Acuity: TOMÁS 4 ll1 Triage Assessment: 13:02 General: Appears uncomfortable, Behavior is calm, cooperative, appropriate for age. ll1 Pain: Complains of pain in mouth Pain currently is 8 out of 10 on a pain scale. Quality of pain is described as aching. EENT: Reports pain in right cheek. Historical: - Allergies: 12:56 No Known Allergies; ll1 - PMHx: 12:56 Anxiety; depressive disorder; PCOS; Post depression; suicidal ideation (Post ll1 depress); - PSHx: 12:56 section; Cholecystectomy; ll1 - Immunization history:: Adult Immunizations up to date. - Infectious Disease History:: Denies. - Social history:: Smoking status: Reported history of juuling and/or vaping. Screenin:05 [facility] ED Fall Risk Assessment (Adult) History of falling in the last 3 months, mb9 including since admission No falls in past 3 months (0 pts) Confusion or Disorientation No (0 pts) Intoxicated or Sedated No (0 pts) Impaired Gait No (0 pts) Mobility Assist Device Used No (0 pt) Altered Elimination No (0 pt) Score/Fall Risk Level 0 - 2 = Low Risk Oriented to surroundings, Maintained a safe environment, Educated pt \T\ family on fall prevention, incl call for assistance when getting out of bed. Abuse screen: Denies threats or abuse. Nutritional screening: No deficits noted. Tuberculosis screening: No symptoms or risk factors identified. Assessment: 13:06 General: Appears in no apparent distress. Behavior is calm, cooperative. Pain: mb9 Complains of pain in right cheek and mouth. Neuro: [place] Agitation-Sedation Scale (RASS): 0 - Alert and Calm Level of Consciousness is awake, alert, obeys commands, Oriented to person, place, time, situation, Appropriate for age. Cardiovascular: Patient's skin is warm and dry. Respiratory: Airway is patent Respiratory effort is even, unlabored, Respiratory pattern is regular, symmetrical. GI: No signs and/or symptoms were reported involving the gastrointestinal system. : No signs and/or symptoms were reported regarding the genitourinary system. EENT: Oral mucosa is moist. Poor dentition noted. Derm: Skin is pink, warm \T\ dry. Musculoskeletal: Range of motion: intact in all extremities. Vital Signs: 13:01 BP 123 / 78; Pulse 77; Resp 16; Temp 97.8; Pulse Ox 100% ; Height 5 ft. 1 in. ; Pain ll1 8/10; 13:01 Pain Scale: Adult ll1 ED Course: 12:43 Patient arrived in ED. mg5 12:44 Peyton Mendes PA-C is PHCP. sb4 12:44 Mejia Rios MD is Attending Physician. sb4 12:55 Arm band placed on. ll1 13:02 Triage completed. ll1 13:05 Jimena Giordano RN is Primary Nurse. mb9 13:05 Bed in low position. Call light in reach. Side rails up X 1. Provided Education on: mb9 press call light if needing anything. Client placed on continuous cardiac and pulse oximetry monitoring. NIBP monitoring applied. 13:06 No provider procedures requiring assistance completed. mb9 13:09 German Henry DDS is Referral Physician. sb4 13:13 Patient did not have IV access during this emergency room visit. mb9 Administered Medications: No medications were administered Medication: 13:06 VIS not applicable for this client. mb9 Outcome: 13:09 Discharge ordered by . sarah 13:13 Discharged to home ambulatory, mb9 13:13 Condition: stable 13:13 Discharge instructions given to patient, Instructed on discharge instructions, follow up and referral plans. Demonstrated understanding of instructions, follow-up care, medications, Prescriptions given X 2, 13:13 Patient left the ED. mb9 Signatures: Froylan Restrepo RN RN ll1 Peyton Mendes PA-C PAMnainder pierce4 Jimena Giordano RN RN mb9 Gin Ware mg5
[2024-05-20 13:25] VITALS: BP 123/78; TEMP 97.8; O2SAT 100
== END 2024-05-20 13:13 | disposition home or self-care (01) ==
LOC: ER 12:42
DX: K03.81 Cracked tooth (principal); K02.9 Dental caries, unspecified
CPT/HCPCS: 99283